=== PATIENT | male | born 1945 | race Caucasian/White ===

== ENCOUNTER → 2022-02-06 | Outpatient (CLI) | payer OTHER, SELFPAY ==
--- NOTE | 2022-02-06 08:30 | PET_ITS ---
STUDY: WHOLE BODY PET/CT STUDY REASON FOR EXAM: Male, 76 years old. Lung cancer, restaging RADIATION DOSAGE (If Supplied By Facility): CTDIvol = ( ) mGy, DLP = ( ) mGycm. Individualized dose optimization techniques were used for this CT.? FLUOROSCOPY TIME (if supplied): ( ) minutes/seconds TECHNIQUE: Patient was injected with 13.65 mCi of F-18 FDG for multiplanar whole body PET scan along with simultaneous CT. COMPARISON: None. FINDINGS: There is no suspicious abnormal PET activity. Physiologic activity noted within the brain, salivary glands, heart, liver or spleen kidneys, and in GI tract. The noncontrasted CT scan does not show evidence of a suspicious lymph node. There is evidence of calcified coronary vessels and a pericardial effusion with maximum thickness of 2.65 cm. Liver spleen pancreas and adrenal glands are unremarkable. There is a concern for a lesion in the upper pole the right kidney along with hypertensive cysts and a partially calcified left renal cyst. Further evaluation of the right kidney with ultrasound or contrasted study recommended. This area of the right kidney does not show any PET activity suggesting it may be a cyst. Scattered colonic diverticulosis is noted. There is an enlarged prostate, and a fat fluid level noted within the bladder PET/PET/CT Tumor Base -Thigh Init IMPRESSION: No suspicious abnormal PET activity noted. There are abnormal findings within the CT scan. These include prominent pericardial effusion, contour abnormality in the upper pole of the right kidney concerning for mass lesion. Ultrasound or contrasted study recommended for further evaluation, markedly enlarged prostate, and a fat fluid level within the bladder Electronically Signed: Joés Luis Whaley MD at 16:08 EDT ,
== END | disposition home or self-care (01) ==
DX: C34.31 Malignant neoplasm of lower lobe, right bronchus or lung (principal)
CPT/HCPCS: 78815; A9552

== ENCOUNTER 2022-03-14 12:24 | Emergency (ER) | payer OTHER, SELFPAY ==
[2022-03-14 12:25] VITALS: BP 149/70; PULSE 76; RESP 15; TEMP 36.7; O2SAT 97; BMI 35.7
[2022-03-14 12:32] VITALS: O2SAT 96
--- NOTE | 2022-03-14 12:38 | EKG12_ITS ---
Test Reason : Blood Pressure : / mmHG Vent. Rate : 051 BPM Atrial Rate : 051 BPM P-R Int : 178 ms QRS Dur : 082 ms QT Int : 414 ms P-R-T Axes : 266 061 014 degrees QTc Int : 381 ms Unusual P axis, possible ectopic atrial bradycardia Low voltage QRS Abnormal ECG Confirmed by CYNDI PETIT, JORDYN ([id number]), web content editor ELENITA ODOM ([id number]) on 03/18/2022 9:49:07 AM Referred By: Confirmed By:EVAN HANNA MD
[2022-03-14 12:57] LABS: Absolute Lymphocyte Count 2.42 X10^3/uL (0.83-4.51); Absolute Neutrophil Count 5.7 X10^3/uL (2.0-7.7); Basophil# 0.08 X10^3/uL; Basophil% 0.8 % (0-1); Eosinophil# 0.42 X10^3/uL; Eosinophils% 4.1 % (0-5); Lymphocyte # 2.42 X10^3/ul (0.83-4.51); Lymphocyte % 23.7 % (19-41); Mean Corp Hgb Conc 32.6 g/dL (32-36); Mean Corpuscular Volume 85.8 fL (80-94); Mean Platelet Vol. 10.7 fl (6.2-12.0); Monocyte# 1.55 X10^3/uL; Monocyte% 15.2 % (0-10); NRBC Flagged by Analyzer 0 % (0-5); Neutrophil # 5.71 X10^3/uL (2.7-7.7); Neutrophil % 55.7 % (47-70); POSITIVE DIFFERENTIAL YES; Platelet Count 173 K/mm3 (150-450); RBC Distribution Width CV 16.9 % (11.6-14.6); RBC Distribution Width SD 52.6 fl (35.1-43.9); Red Blood Count 5.36 M/mm3 (4.6-6.2); White Blood Count 10.2 K/mm3 (4.4-11.0)
[2022-03-14 12:58] LABS: Differential Indicated SCAN CRITERIA MET
--- NOTE | 2022-03-14 13:14 | RAD_ITS ---
STUDY: X-RAY CHEST REASON FOR EXAM: Male, 76 years old. Chest pain TECHNIQUE: Single AP portable view of the chest. COMPARISON: None. FINDINGS: EKG electrodes are seen. Infiltration in the right middle lobe. Increased markings in the right upper lobe as well as in the left lower lobe. Bilateral pneumonia should be ruled out. There is no demonstrated pleural abnormality. There is mild cardiac enlargement. Normal mediastinum and milady. Normal visualized pulmonary arteries. Normal visualized aortic arch and descending thoracic aorta. There are diffuse degenerative changes of the visualized thoracic spine. Normal visualized ribs, clavicles, and shoulders. There is no demonstrated abnormality of the visualized soft tissue structures of the upper abdomen. RAD/Chest 1 View (Portable) IMPRESSION: Patchy infiltrates in the right middle lobe with increased markings in the right upper lobe and left lung base. Mild cardiomegaly. With the patient''s history of a pericardial effusion. This may represent a pericardial effusion. Electronically Signed: Ramses Padilla MD at 13:40 EDT ,
[2022-03-14 13:16] LABS: Anion Gap 7 (5-15); BUN 22 mg/dL (7-18); BUN/Creat Ratio 17.6 RATIO (10-20); Calcium,Total 9.4 mg/dL (8.5-10.1); Chloride 102 mmol/L (98-107); Creatinine, Serum 1.25 mg/dL (0.70-1.30); EST Glomerular Filtration Rate 59 mL/min (>60); Est Glom Filt Rate - Afr Amer 72 mL/min (>60); Estimated Creatinine Clearance 47.88 ml/min; Glucose 179 mg/dL (74-106); Potassium 4.1 mmol/L (3.5-5.1); Sodium Level 139 mmol/L (136-145); Troponin-I HS (w/2H Reflex) 12 pg/mL (3.0-78.0)
[2022-03-14 13:26] LABS: Differential Comment SCANNED
[2022-03-14 13:32] VITALS: BP 135/81; PULSE 64; RESP 17; O2SAT 94
--- NOTE | 2022-03-14 13:32 | EDS_ITS ---
HPI History of Present Illness Chief Complaint: Shortness of Breath Narrative Narrative: 76-year-old male with history of lung cancer presenting with shortness of breath. Patient states this is not a new issue. Patient had radiation therapy to his chest previously. He states he is experiencing shortness of breath but as far as exertion he is able to mow his lawn and this takes about 45 minutes. He states he also works a few days a week. He is able to help out around the house and describes his shortness of breath is mild. Denies fever, chills, cough. Patient had a recent PET scan done ordered by Dr. Gutiérrez on 02/06/2022 which showed no suspicious lymph nodes. There was a per icardial effusion with a maximum thickness of 2.65 cm. There is no report of pleural effusion. There was a CT scan done at the same time which showed a probable lesion to the kidney which looks like a mass. It did recommend a follow-up contrasted study to evaluate the kidney. Patient was seen at the [facility] today and states he had an echocardiogram and there was a pericardial effusion noted. They were concerned for tamponade physiology. They requested that the patient go to the hospital and said to go to [facility] however the patient's stated that she believed [facility] had a good cardiac group. She was told all that he would need to do was inserted a needle into his thorax and drained the fluid from around the heart. The patient himself does not have any symptoms of lightheadedness or dizziness. He reports stress is no chest pain. His shortness of breath is unchanged and is mild. PFSH PFSH Medical History Diabetes High cholesterol HTN (hypertension) Lung cancer Prostate enlargement Smoker Allergy/AdvReac Type Severity Reaction Status Date / Time amoxicillin [From Augmentin] Allergy Hives Verified 03/14/22 12:27 clavulanic acid Allergy Hives Verified 03/14/22 12:27 [From Augmentin] lisinopril Allergy Other Verified 03/14/22 12:27 Surgical History H/O shoulder replacement Social History Smoking Status: Current every day smoker tobacco type: cigarettes ROS ROS ED Constitutional Constitutional ED: Denies fever(s) or sweats Eyes Eyes: Denies blurry vision or diplopia ENT ENT ED: Denies rhinorrhea or sore throat Cardiovascular Cardiovascular: Denies chest pain or palpitations Respiratory/Chest Respiratory/Chest: Reports dyspnea on exertion; Denies cough Gastrointestinal Gastrointestinal: Denies abdominal pain, nausea or vomiting Genitourinary Genitourinary ED: Denies dysuria or hematuria Musculoskeletal Musculoskeletal: Denies arthralgias or myalgias Integumentary Denies rash Neurologic Neurologic: Denies headache(s) or weakness Psychiatric Psychiatric: Denies anxiety or depression EXAM Physical Exam Const Vital Signs: 03/14/22 12:25 03/14/22 12:32 03/14/22 12:40 Temperature 98.1 F Temperature Source Temporal Pulse Rate 76 Respiratory Rate 15 Respiratory Effort Normal Non-Labored Respiratory Depth Normal Respiratory Pattern Normal Blood Pressure 149/70 H Blood Pressure Mean 96 Pulse Ox 97 Oxygen Delivery Method Room Air Room Air Room Air 03/14/22 13:32 Temperature Temperature Source Pulse Rate 64 Respiratory Rate 17 Respiratory Effort Respiratory Depth Respiratory Pattern Blood Pressure 135/81 H Blood Pressure Mean 99 Pulse Ox 94 Oxygen Delivery Method Room Air Positive well nourished General Appearance ED: NAD; Negative for pallor HEENT Reports moist mucous membranes atraumatic Eyes PERRL and EOMs intact bilaterally Neck no lymphadenopathy, supple and no JVD Resp normal respiratory effort and clear to auscultation bilaterally Cardio regular rate and regular rhythm GI non-tender Palpation: soft Back/Spine normal to inspection Extremity normal to inspection General Extremety ED: Negative for edema or tenderness General Extremity: Negative for edema Neuro oriented x3, CN's II-XII intact bilaterally and no sensory deficits noted Sensorium / Orientation: alert Motor Exam: strength 5/5 throughout Psych mental status grossly normal Thought Process: normal thought process Skin General Skin Exam: Negative for jaundice or pallor Lesions: no lesions Rashes: no rashes MDM MDM MDM Narrative Medical decision making narrative: Patient was sent to the hospital out of concern for tamponade physiology although he is stating that he does not have any symptoms of lightheadedness and is able to mow the grass for 45 minutes even though he has some dyspnea on exertion. He is not experiencing chest pain. He has not had syncope. His heart rate is not fast. His blood pressure is 135/81. He has no lower extremity edema or signs of heart failure. His EKG interpreted by myselfs hows bradycardia with a probable ectopic P focus. No ST elevation or depression. No electrical altered hands. There is a low voltage. CBC and BMP within normal limits. High-sensitivity troponin is 12. I am awaiting the documentation of the echocardiogram from the [facility]. patient CBC and BMP are unremarkable. High-sensitivity troponin is 12. Chest x-ray shows patchy infiltrates in the right middle lobe and right upper lobe consistent with his previous PET scan readings on my interpretation. Patient is not hypoxic, tachypneic, febrile. I do not believe he has pneumonia. Patient is not exhibiting by history or by exam any signs or symptoms of tamponade physiology however since he reported this I tried to obtain the fax from the [facility] however this never showed up. I then called an ER physician at the [facility] to discuss the case and he was able to look up the patient's history. The ER physician there told me that the patient had an abnormal echocardiogram about a month ago which was showing some tamponade physiology although there is no cardiology notes associated with this. He did state there was a large pericardial effusion in the right atrium and right ventricle showed some diastolic tamponade. He states that the 1 from yesterday that the patient received an was called about today showed similar physiology. After I did discuss with the patient that with the tamponade physiology he likely needs to go to [facility] and the ER physician was willing to arrange transport for him to the [facility] hospital however the patient stated that I have had this for a month and I do not want to go by ambulance. I did child care counselor the patient at length the risks of signing out AMA and that he risks severe disability, injury, because of the tamponade physiology. He acknowledged understanding of this. He signed appropriate paperwork. Prior to discharge he told the nurse that he did not plan on going to [facility] today. It was reported that he was encouraged to go to the ER today since he did not want to be transported. Impression: 1. Dyspnea 2. Pericardial effusion 3. Cardiac tamponade Lab Data Attestation: I reviewed the patient's lab results. Labs: Laboratory Results - last 24 hr 03/14/22 03/14/22 12:50 12:50 WBC 10.2 RBC 5.36 Hgb 15.0 Hct 46.0 MCV 85.8 MCH 28.0 MCHC 32.6 RDW Std Deviation 52.6 H RDW Coeff of Marlene 16.9 H Plt Count 173 MPV 10.7 Immature Gran % (Auto) 0.500 Neut % (Auto) 55.7 Lymph % (Auto) 23.7 Pickett % (Auto) 15.2 H Eos % (Auto) 4.1 Baso % (Auto) 0.8 Absolute Neuts (auto) 5.7 Absolute Lymphs (auto) 2.42 Nucleated RBC % 0 Differential Comment SCANNED Sodium 139 Potassium 4.1 Chloride 102 Carbon Dioxide 30.0 Anion Gap 7 BUN 22 H Creatinine 1.25 Estim Creat Clear Calc 47.88 Est GFR (MDRD) Af Amer 72 Est GFR (MDRD) Non-Af 59 L BUN/Creatinine Ratio 17.6 Glucose 179 H Calcium 9.4 Troponin I High Sens 12 Radiography Diagnostic Testing: Clinical Impression(s) from Imaging Studies Chest X-Ray 03/14/22 13:14 IMPRESSION: Patchy infiltrates in the right middle lobe with increased markings in the right upper lobe and left lung base. Mild cardiomegaly. With the patient''s history of a pericardial effusion. This may represent a pericardial effusion. Electronically Signed: Ramses Padilla MD at 13:40 EDT , Discharge Plan Triage Chief Complaint: Shortness of Breath ED Provider: Rashard Swanson Dx/Rx/DC Orders Instructions: Treatment for Pericardial Effusion, ED Dyspnea Referrals: ESTELA GUTIÉRREZ [Other] Disposition Disposition: Against Medical Advice
--- NOTE | 2022-03-14 14:51 | ED.RN ---
PER ED MD, PT AND REFUSE TRANSFER AND DIRECT TRANSPORT TO [facility] ([place], [place]). PT TELLS ED MD THEY WILL DRIVE DIRECTLY TO [facility] ([place], [place]) AFTER LEAVING [facility], VOICES UNDERSTANDING OF RISKS AND WILL SIGN OUT AMA. THIS RN ENTERED ROOM TO DISCUSS LEAVING AMA, LAUGHS AND STATES WE WON'T BE GOING THERE. THIS RN AGAIN REITERATED DANGER IN SIGNING PUT AMA, ESPECIALLY SINCE PT NOT GOING TO [facility] ([place], [place]). DISCUSSED CONCERN THAT PT HAS LIFE THREATENING CONDITION THAT NEEDS IMMEDIATE INTERVENTION TO PREVENT . BOTH PT AND DISMISS THESE CONCERNS, STATING THIS HAS BEEN GOING ON FOR A MONTH. PT SIGNED AMA PAPERS, IV REMOVED. THIS RN AGAIN REQUESTED PT AND GO STRAIGHT TO [facility] ([place], [place]) IF DECLINING TRANSFER BY [facility]. STATES CAN WE HAVE SOME TIME TO TALK ABOUT IT, I WON'T DRIVE UP THERE IN [place] HOUR. THIS RN AGAIN OFFERED TRANSPORT BY [facility] AND THEN LEFT ROOM. ACCORDING TO [employer] BUSINESS CONSULTANT, PT AND REQUESTED FOOD, THEN LEFT DEPARTMENT STATING THEY WERE GOING TO CAR TO DISCUSS OPTIONS.
[2022-03-14 14:55] LABS: Reflex Troponin-HS? (from REC) Y
--- NOTE | 2022-03-14 15:22 | ED.RN ---
PT AND CAME BACK IN TO TRIAGE, PER MD AGAIN ASKED PT TO GO STRAIGHT TO [facility] ED. BOTH PT AND VOICE UNDERSTANDING AND STATE THEY WILL DO SO.
== END 2022-03-14 14:50 | disposition left against medical advice (07) ==
PROVIDERS: Emergency Provider Student in an Organized Health Care Education/Training Program; Visit Provider Student in an Organized Health Care Education/Training Program
DX: I31.3 Pericardial effusion (noninflammatory) (principal); C34.90 Malignant neoplasm of unspecified part of unspecified bronchus or lung; E11.9 Type 2 diabetes mellitus without complications; I31.4 Cardiac tamponade; F17.210 Nicotine dependence, cigarettes, uncomplicated; Z53.29 Procedure and treatment not carried out because of patient's decision for other reasons
CPT/HCPCS: 71045; 80048; 84484; 85025; 93005; 99282; A4216

== ENCOUNTER → 2022-12-31 | Outpatient (CLI) | payer OTHER, SELFPAY ==
--- NOTE | 2022-12-31 14:03 | CT_ITS ---
STUDY: CT CHEST WITHOUT CONTRAST REASON FOR EXAM: Male, 77 years old. HX LUNG CA 2 YEARS AGO AND HAD RADIATION RADIATION DOSAGE (If Supplied By Facility): CTDIvol = ( 19.37 ) mGy, DLP = ( 655.06 ) mGycm TECHNIQUE: Transaxial imaging was performed without the administration of intravenous contrast material. Multiplanar coronal and sagittal images were reformatted. Individualized dose optimization techniques were used for this CT. COMPARISON: Comparison is made with prior chest radiograph dated March 14, 2022 and prior PET scan dated February 06, 2022. FINDINGS: CHEST Small benign appearing bilateral axillary lymph nodes. There is an irregular 3.2 cm x 1 cm soft tissue infiltrate in the right lung apex and right upper lobe anteriorly. With the patient''s history of prior radiation, this may represent post radiation scarring. This is unchanged from prior PET/CT scan dated February 06, 2022. There is no demonstrated pleural abnormality. There are calcifications of the coronary arteries. Anterior pericardial thickening suggestive of a small pericardial effusion. There are multiple small lymph nodes within the mediastinum, which are normal in size and morphology most compatible with reactive lymph hyperplasia. Normal hilar regions. Normal unenhanced pulmonary arteries. Normal aorta arch and descending thoracic aorta. There are multi-level degenerative changes of the thoracic spine. Right renal cysts. 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 Cystic changes seen in the upper pole of the right kidney. Correlation with ultrasound is recommended for further evaluation. Electronically Signed: Ramses Padilla MD at 15:57 EST ,
== END | disposition home or self-care (01) ==
LOC: CT 14:02
DX: Z85.118 Personal history of other malignant neoplasm of bronchus and lung (principal)
CPT/HCPCS: 71250

== ENCOUNTER → 2023-01-10 | Outpatient (CLI) | payer OTHER, SELFPAY ==
--- NOTE | 2023-01-10 13:53 | US_ITS ---
STUDY: RENAL ULTRASOUND - COMPLETE REASON FOR EXAM: Male, 77 years old. HEMATURIA, WEIGHT LOSS TECHNIQUE: Ultrasound evaluation of the kidneys was performed with real-time and static jones-scale imaging. COMPARISON: None. FINDINGS: RIGHT KIDNEY: Normal location of the right kidney, which is normal in size. The right kidney measures 14.2x7.5 cm. . There is a normal cortex of the right kidney. There is a cyst of the right kidney measuring in mm: 37. There are other smaller cysts..There are no right renal calculi. There is no right hydronephrosis. DISTAL RIGHT URETER: There is non-visualization of the distal right ureter. There is no demonstrated right ureterovesical junction calculus. There is no demonstrated right ureteral jet. LEFT KIDNEY: Normal location of the left kidney, which is normal in size. The left kidney measures 12.5x7.7 cm. . There is a normal cortex of the left kidney. There is a cyst of the left kidney measuring in mm: 29. This cyst has a septation. There are 19 mm left renal calculi. There is no left hydronephrosis. DISTAL LEFT URETER: There is non-visualization of the distal left ureter. There is no demonstrated left ureterovesical junction calculus. There is no demonstrated left ureteral jet. AORTA: There is no elongation or tortuosity of the abdominal aorta. Aorta measures: mm. There is no demonstrated aneurysm.. I.V.C.: The IVC is patent. BLADDER: The distended urinary bladder has a volume in cc of 75. Urinary bladder wall thickening. There is no demonstrated mass within the urinary bladder. There are no demonstrated bladder calculi. US/Kidney and Bladder IMPRESSION: Renal cysts bilaterally. Nonobstructive left renal stone. Electronically Signed: Noam Hill MD at 15:15 EDT ,
== END | disposition home or self-care (01) ==
LOC: US 13:52
DX: R31.0 Gross hematuria (principal)
CPT/HCPCS: 76770

== ENCOUNTER → 2023-06-16 | Outpatient (CLI) | payer OTHER, SELFPAY ==
--- NOTE | 2023-06-16 14:52 | CT_ITS ---
INDICATION: PERSONAL HX OF OTHER MALIGNANT NEOPLASM EXAMINATION: CT CHEST WITHOUT CONTRAST - CT Chest W/O Contrast Injection TECHNIQUE: Helically acquired images were obtained of the chest. A radiation dose optimization technique was used for this scan. IV Contrast dosage and agent: None. COMPARISON: CT chest without contrast from 12/31/2022. PET/CT from 02/06/2022 FINDINGS: Lungs/pleura: The central airways are patent. Mild emphysematous changes. 3.0 x 1.5 cm irregularly marginated soft tissue density in the right upper lobe with surrounding associated volume loss is stable when measured in similar dimension. Similar degree of trace right upper lobe parenchymal scarring. There are a few stable scattered pulmonary nodules. For example, largest nodules as follow: * 5 mm in the right middle lobe (4:76). * 5 mm in the left upper lobe (4:22). * 5 mm in the left lower lobe (4:73). No new or enlarging mass or nodule. No pleural effusion or pneumothorax. Mediastinum: Heart size is normal. No pericardial effusion. No masses or lymphadenopathy although assessment is limited without IV contrast. Vasculature: Assessment limited without IV contrast. Normal course and caliber of the thoracic aorta and pulmonary trunk with no aneurysmal dilatation. Moderate atherosclerotic calcifications in the thoracic aorta. Severe coronary artery calcifications. Visualized upper abdomen: There are a few stable hemorrhagic/proteinaceous cyst in the visualized kidneys. Small hiatal hernia. Bones/soft tissues: Stable remote right rib 2 fracture. No acute fracture or subluxation. No destructive osseous lesions. Soft tissues are unremarkable. CT/Chest without Contrast IMPRESSION: 1. Stable irregularly marginated opacity in the right upper lobe suggestive of scarring and fibrosis from posttreatment changes. Continued surveillance imaging is recommended. 2. Stable scattered pulmonary nodules measuring up to 5 mm. 3. No new or enlarging masses or nodules. Electronically Signed: Carlos Blount DO at 8:26 EDT ,
== END | disposition home or self-care (01) ==
LOC: CT 14:49
DX: Z85.118 Personal history of other malignant neoplasm of bronchus and lung (principal)
CPT/HCPCS: 71250

== ENCOUNTER → 2023-12-16 | Outpatient (CLI) | payer OTHER, SELFPAY ==
--- NOTE | 2023-12-16 12:58 | US_ITS ---
STUDY: RENAL ULTRASOUND - COMPLETE REASON FOR EXAM: Male, 78 years old. Kidney failure TECHNIQUE: Ultrasound evaluation of the kidneys was performed with real-time and static jones-scale imaging. COMPARISON: Comparison is made with prior examination dated January 10, 2023. FINDINGS: RIGHT KIDNEY: Normal location of the right kidney, which is normal in size. The right kidney measures 14.1 cm x 6.8 cm x 6.3 cm. There is a normal cortex of the right kidney. The renal cortex measures 1.2 cm. Once again, multiple cysts are seen. The largest cyst measures 3.2 cm x 3.9 cm x 3.3 cm. There are no right renal calculi. There is no right hydronephrosis. DISTAL RIGHT URETER: There is non-visualization of the distal right ureter. There is no demonstrated right ureterovesical junction calculus. There is a visualized right ureteral jet. LEFT KIDNEY: Normal location of the left kidney, which is normal in size. The left kidney measures 12.7 cm x 5.6 cm x 7.3 cm. There is a normal cortex of the left kidney. The renal cortex measures 1.5 cm. Multiple cysts are seen. The largest measures 2 cm x 2.8 cm x 2.3 cm. This cyst is septated. Findings suggesting multiple nonobstructive intrarenal calculi. The largest measures 1.4 cm x 1.6 cm. There is no left hydronephrosis. DISTAL LEFT URETER: There is non-visualization of the distal left ureter. There is no demonstrated left ureterovesical junction calculus. There is a visualized left ureteral jet. BLADDER: The distended urinary bladder has a volume of 95 ml. There is thickening of the bladder wall measuring 5.7 mm. There is no demonstrated mass within the urinary bladder. There are no demonstrated bladder calculi. US/Kidney and Bladder IMPRESSION: Stable bilateral renal cysts and left intrarenal calculi. Bladder wall thickening. Electronically Signed: Ramses Padilla MD at 14:13 EST ,
--- NOTE | 2023-12-16 13:03 | CT_ITS ---
STUDY: CT CHEST WITHOUT CONTRAST REASON FOR EXAM: Male, 78 years old. LUNG CANCER S/P RADIATION RADIATION DOSAGE (If Supplied By Facility): CTDIvol = ( 15.64 ) mGy, DLP = ( 544.20 ) mGycm TECHNIQUE: Transaxial imaging was performed without the administration of intravenous contrast material. Multiplanar coronal and sagittal images were reformatted. Individualized dose optimization techniques were used for this CT. COMPARISON: Comparison is made with prior study done June 16, 2023. FINDINGS: CHEST There is a 4.8 cm x 1.9 cm spiculated mass in the right upper lobe. This has increased in size as compared to prior study. Increased radiodensity anterior right lung apex. Stable scattered nodular densities in both lungs measuring less than 5 mm. There is no demonstrated pleural abnormality. There are calcifications of the coronary arteries. Normal mediastinum. Normal hilar regions. Normal unenhanced pulmonary arteries. There is atherosclerotic calcification of the aortic arch with tortuosity and elongation of the aortic arch and descending thoracic aorta. There are degenerative changes of the thoracic spine. Stable hyperdense cysts in both kidneys. Fullness of the left renal pelvis. CT/Chest without Contrast IMPRESSION: Progressive increase in size of the right upper lobe density measuring 4.8 cm x 1.9 cm. The remainder of the examination is unchanged. Electronically Signed: Ramses Padilla MD at 14:01 EST ,
--- OUTSIDE RECORDS SUMMARY | 2023-12-16 14:52 | XMS RPT_ITS | CCD ---
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 Helper Name Role Phone Yolis Musa PA-C Primary Care Provider PROVIDER, UNKNOWN Referring Unavailable Yolis Musa Primary Care Unavailable Heri Camarillo Attending Unavailable Heri Camarillo Attending Unavailable PROVIDER, UNKNOWN Referring Unavailable Yolis Musa Primary Care Unavailable KARI RAYMUNDO Attending Unavailable ABIGAIL MYERS Attending Unavailable HERI CAMARILLO Admitting Unavailable HERI CAMARILLO Attending Unavailable HERI CAMARILLO Attending Unavailable Allergies Allergy Classification Reported Allergen(s) Allergy Type Date of Onset Reaction(s) Facility (1 source) buPROPion Drug Allergy 06-09-2022 [facility] Work Phone: (1 source) Insulin Glargine Drug Allergy 06-07-2022 Rash [facility] Work Phone: (1 source) Lisinopril Drug Allergy 06-07-2022 Cough [facility] Work Phone: (1 source) Amoxicillin-Pot Clavulanate Propensity to adverse reactions to drug 06-07-2022 Headaches [facility] Medications Current Medications Medication Drug Class(es) Dates Sig (Normalized) Sig (Original) aspirin 81 mg chewable tablet (1 source) Platelet Aggregation Inhibitor, Nonsteroidal Anti-inflammator y Drug take 1 tablet by mouth once daily aspirin 81 MG chewable tablet Take 81 mg by mouth daily 0 Active finasteride 5 mg oral tablet (1 source) 5-alpha Reductase Inhibitor take 1 tablet by mouth in the morning finasteride (PROSCAR) 5 MG tablet Take 5 mg by mouth in the morning. 0 Active glipiZIDE 10 mg oral tablet (1 source) Sulfonylurea take 1 tablet by mouth in the morning glipiZIDE (GLUCOTROL) 10 MG tablet Take 10 mg by mouth in the morning and 10 mg in the evening. Take before meals. 0 Active hydroCHLOROthiazide 25 mg oral tablet (1 source) Thiazide Diuretic take 1 tablet by mouth in the morning hydroCHLOROthiazide (HYDRODIURIL) 25 MG tablet Take 25 mg by mouth in the morning. 0 Active losartan potassium 100 mg oral tablet (1 source) Angiotensin 2 Receptor Stef take 1 tablet by mouth in the morning losartan (COZAAR) 100 MG tablet Take 100 mg by mouth in the morning. 0 Active metFORMIN hydrochloride 500 mg oral tablet (1 source) Biguanide take 1 tablet by mouth in the morning metFORMIN (GLUCOPHAGE) 500 MG tablet Take 500 mg by mouth in the morning and 500 mg in the evening. Take with meals. 0 Active NONFORMULARY (1 source) NONFORMULARY Indications: insulin, substitute for Lantus. 20 Units nightly Indications: insulin, substitute for Lantus. 0 Active tamsulosin hydrochloride 0.4 mg oral capsule (1 source) alpha-Adrenergic Stef take 1 capsule by mouth in the morning tamsulosin (FLOMAX) 0.4 MG capsule Take 0.4 mg by mouth in the morning and 0.4 mg before bedtime. 0 Active Completed/Discontinued Medications Medication Drug Class(es) Dates Sig (Normalized) Sig (Original) insulin, regular, human 100 unt/ml injectable solution (1 source) Insulin End: 08-15-2022 insulin regular (HUMULIN R;NOVOLIN R) 100 UNIT/ML injection Indications: pt does not know name , same as Lantus Inject 20 Units into the skin every evening Indications: pt does not know name , same as Lantus 0 08/15/2022 Discontinued (LIST CLEANUP) Problems Active Problems Problem Classification Problem Date Documented Da te Episodic/Chronic Cancer of bronchus; lung (1 source) Malignant tumor of lung; Translations: [Malignant neoplasm of unspecified part of unspecified bronchus or lung] Onset: 06-09-2022 06-09-2022 Chronic Cancer of bronchus; lung (2 sources) Personal history of other malignant neoplasm of bronchus and lung; Translations: [Personal history of malignant neoplasm of bronchus and lung] Onset: 08-15-2022 Episodic Cardiac dysrhythmias (1 source) Atrial fibrillation; Translations: [Unspecified atrial fibrillation] Onset: 06-09-2022 06-09-2022 Chronic Diabetes mellitus without complication (3 sources) Diabetes mellitus; Translations: [Type 2 diabetes mellitus without complications] Onset: 06-09-2022 06-09-2022 Chronic Essential hypertension (3 sources) Hypertensive disorder; Translations: [Essential (primary) hypertension] Onset: 06-09-2022 06-09-2022 Chronic Genitourinary symptoms and ill-defined conditions (11 sources) Increased frequency of urination; Translations: [Frequency of micturition] Onset: 06-10-2022 06-10-2022 Episodic Hyperplasia of prostate (5 sources) Benign prostatic hypertrophy with outflow obstruction; Translations: [Benign prostatic hyperplasia with lower urinary tract symptoms] Onset: 06-10-2022 06-10-2022 Chronic Other aftercare (2 sources) alf (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; Translations: [long term acute care registered nurse (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] Onset: 08-15-2022 Episodic Other circulatory disease (2 sources) Personal history of other diseases of the circulatory system; Translations: [Personal history of other diseases of the circulatory system] Onset: 08-15-2022 Episodic Other screening for suspected conditions (not mental disorders or infectious disease) (1 source) Raised prostate specific antigen; Translations: [Elevated prostate specific antigen [PSA]] Onset: 06-10-2022 06-10-2022 Episodic [place]-; endo-; and myocarditis; cardiomyopathy (except that caused by tuberculosis or sexually transmitted disease) (1 source) Pericardial effusion; Translations: [Pericardial effusion] Onset: 06-09-2022 06-09-2022 Episodic Residual codes; unclassified (2 sources) Obstructive sleep apnea (adult) (pediatric); Translations: [Obstructive sleep apnea (adult) (pediatric)] Onset: 08-15-2022 Chronic Residual codes; unclassified (2 sources) Dependence on other enabling machines and devices; Translations: [Dependence on other enabling machines and devices] Onset: 08-15-2022 Chronic Substance-related disorders (2 sources) Nicotine dependence, unspecified, uncomplicated; Translations: [Nicotine dependence, unspecified, uncomplicated] Onset: 08-15-2022 Chronic Unclassified (1 source) Other pericardial effusion (noninflammatory); Translations: [Other pericardial effusion (noninflammatory)] Onset: 08-15-2022 Unclassified (2 sources) N40.1 // N13.8 Onset: 08-22-2022 Past or Other Problems Problem Classification Problem Date Documented Da te Episodic/Chronic Unclassified (1 source) Other pericardial effusion (noninflammatory); Translations: [Other pericardial effusion (noninflammatory)] Onset: 08-15-2022 Results Test Name Value Interpretation Reference Range Facil ity Vital Signs Date Time Vital Sign Value Performing Clinician Faci lity 08-15-2022 15:37-0400 Body height 175.3 cm Heri Camarillo MD Work Phone: [facility] 08-15-2022 15:37-0400 Body mass index (BMI) [Ratio] 35.09 kg/m2 Heri Camarillo MD Work Phone: [facility] 08-15-2022 15:37-0400 Body temperature 97 [degF] Heri Camarillo MD Work Phone: [facility] 08-15-2022 15:37-0400 Body weight 107.78 kg Heri Camarillo MD Work Phone: [facility] 08-15-2022 15:37-0400 Diastolic blood pressure 55 mm[Hg] Heri Camarillo MD Work Phone: [facility] 08-15-2022 15:37-0400 Heart rate 65 /min Heri Camarillo MD Work Phone: [facility] 08-15-2022 15:37-0400 Respiratory rate 16 /min Heri Camarillo MD Work Phone: [facility] 08-15-2022 15:37-0400 SaO2% (BldA) [Mass fraction] 97 % Heri Camarillo MD Work Phone: [facility] 08-15-2022 15:37-0400 Systolic blood pressure 129 mm[Hg] Heri Cueva Work Phone: [facility] Encounters Encounter Date Encounter Type Care Provider Facility Start: 10-18-2022 End: 10-18-2022 ambulatory HERI CAMARILLO [facility] Start: 10-10-2022 End: 10-10-2022 ambulatory ABIGAIL MYERS [facility] Start: 09-16-2022 End: 09-16-2022 ambulatory KARI RAYMUNDO [facility] Start: 08-27-2022 End: 08-27-2022 ambulatory KARI RAYMUNDO [facility] Start: 08-22-2022 End: 08-25-2022 Evaluation and management of inpatient [facility] Start: 08-15-2022 ambulatory UNKNOWN PROVIDER [facility] Start: 08-15-2022 [facility]: 08-15-2022 End: 08-15-2022 Patient encounter status Heri Camarillo MD Work Phone: [facility] Start: 08-15-2022 End: 08-15-2022 Subsequent hospital visit by physician Heri Camarillo MD Work Phone: [facility] Procedures Date Procedure Procedure Detail Performing Clinician Start: 08-15-2022 Blood count hemoglobin Rosamaria Kern PA-C Plan of Treatment Date Care Activity Detail Author Start: 09-30-2027 DTaP/Tdap/Td vaccine (2 - Td or Tdap) DTaP/Tdap/Td vaccine (2 - Td or Tdap) [facility] Start: 08-22-2022 End: 08-22-2022 Patient encounter procedure 08/22/2022 Appointment General Surgery Heri Camarillo MD [address] [place] [address] Franc Zambrano MD [address] [place] [address] [facility] Start: 05-27-2022 Influenza vaccination Flu vaccine (# 1) [facility] Start: 05-03-2022 COVID-19 Vaccine (5 - Booster for Pfizer series) COVID-19 Vaccine (5 - Booster for Pfizer series) [facility] Start: 03-09-2016 Pneumococcal 65+ yea rs Vaccine (2 - PPSV23 if available, else PCV20) Pneumococcal 65+ years Vaccine (2 - PPSV23 if available, else PCV20) [facility] Start: 1994 Screening for malign ant neoplasm of lung Low dose CT lung screening [facility] Start: 1962 Hepatitis C screening Hepatitis C sc reen [facility] Start: 1956 Depression Screen Depression Screen [facility] End: 08-15-2022 Culture, Urine [facility] Work Phone: Payers Date Payer Category Payer Unknown [id number] 2009 Medicare 1945 Unknown [id number] 1945 Unknown [id number] Unknown Social History Date Type Detail Facility Start: 08-15-2022 Tobacco smoking stat [facility] Smokes tobacco daily [facility] History of tobacco use Cigarette Smoker [facility] Work Phone: Start: 08-15-2022 Cigarettes smoked current (pack per day) - Reported 1.5 [facility] Work Phone: Start: 08-15-2022 Tobacco use and exposure Smoke less tobacco non-user [facility] Work Phone: Start: 08-15-2022 Alcohol intake Ex-drinker (finding) [facility] Work Phone: Start: 1945 Sex Assigned At Not on file [facility] Work Phone: Start: 08-05-2022 End: 08-15-2022 Exposure to SARS-CoV-2 (event) Not sure [facility] Work [facility]: Clinical Note 09-27-2022 Note Date & Type Note Facility 09-27-2022 Note I agree with plan of care. He can call us if symptoms persist and we can redo urine testing. Closing encounter. [facility] Hospital Discharge instructions 08-15-2022 Discharge InstructionsAttachments Note Date & Type Note Facility 08-15-2022 Hospital Discharg e instructions Aurora Negro RN - 08/15/2022 4:22 PM EDT TAKE the following medications the morning of your surgery Tamsulosin, Proscar. You may take your prescription pain medication. You may take Tylenol for pain. NO Motrin, ibuprofen or Advil for 24 hours prior to surgery or longer if instructed by your surgeon. NO Aleve or Naprosyn for 3 days prior to surgery or longer if instructed by your surgeon. IF YOU TAKE BLOOD THINNERS OR ASPIRIN: Take last dose of aspirin on 08/16. Hold until after surgery. Follow any instructions given to you by . Take 16 units of insulin at bedtime the night before surgery. Please check blood sugar the morning of surgery and treat, if low with 2 oz of clear juice. Shower with an antibacterial soap such as Dial or Safeguard or shower kit provided to you before coming to the hospital. No makeup, lotion, powder, deodorant or body spays. No hair products. Remove all jewelry and leave it at home. Wear loose comfortable clothing to go home in. You may brush your teeth morning of surgery. Do not wear contacts day of surgery. No marijuana (THC), smoking or alcohol for 24 hours prior to surgery. Please arrange for a responsible adult to drive you home after your surgery and that there is a responsible adult with you for 24 hours post discharge. If you have specific questions, please call your surgeon. You will receive a call the day before your surgery to verify your arrival time and date. You will be asked to arrive at least two hours prior to your scheduled surgery time. Please bring your [facility] Surgical folder and medication list with you day of surgery. We encourage you to write down any questions you may have for the surgeon, anesthesiologist, or other members of the surgical team and bring it with you the day of surgery. Please bring photo ID and insurance information. You may use the free windscreen fitter parking at the main entrance on [address] [place] [address], or the free parking in the [facility] parking deck The following attachments cannot be sent through Care Everywhere.Cystoscopy: Post-op ([place])documented in this encounter [facility] Work Phone: Evaluation note Note Date & Type Note Facility documented in this encounter [facility] Work Phone: Summary Purpose Family History No Family History Records FoundNo Family History Records Found Advance Directives No Advanced Directives Records FoundNo Advanced Directives Records Found Additional Source Comments Care Teams (unrecognized sec tion and content) (unrecognized sect ion and content) No Status Records FoundNo Status Records Found INFORMATION SOURCE (unrecogn ized section and content) DATE CREATED AUTHOR AUTHOR'S ORGANIZ ATION 12/06/2022 [facility] FOR RECORDS PERTAINING TO PATIENTS WHO ARE OR HAVE BEEN ENROLLED IN A CHEMICAL DEPENDENCY/SUBSTANCEABUSE PROGRAM, SOME INFORMATION MAY BE OMITTED. This clinical summary was aggregated from multiple sources. Caution should be exercised in using it in the provision of clinical care. This summary normalizes information from multiple sources, and as a consequence, information in this document may materially change the coding, format and clinical context of patient data. In addition, data may be omitted in some cases. CLINICAL DECISIONS SHOULD BE BASED ON THE PRIMARY CLINICAL RECORDS. [facility] provides no warranty or guarantee of the accuracy or completeness of information in this document.
== END | disposition home or self-care (01) ==
DX: C34.90 Malignant neoplasm of unspecified part of unspecified bronchus or lung (principal)
CPT/HCPCS: 71250; 76770

== ENCOUNTER → 2024-01-20 | Outpatient (CLI) | payer OTHER, SELFPAY ==
--- NOTE | 2024-01-20 11:00 | PET_ITS ---
EXAMINATION: FDG PET/CT ? INDICATIONS: 78-year-old male with an apparent history of lung carcinoma, presenting for restaging examination and evaluation of pulmonary nodularity. ? COMPARISON EXAMINATION: FDG-PET CT study dated 02/06/2022. ? INDEX LESION SIZE SUV INTERPRETATION NEW Prostate gland to the left of midline 32.3 mm 3.5 Warrants further investigation with Magnetic Resonance Imaging ? NEW Right upper lung field, right upper lobe, linear ? 1.7 max Quantitative criteria for viable neoplasm are not fulfilled ? TECHNIQUE: Following the intravenous administration of 14.3 mCi of F-18 deoxyglucose via the left upper extremity, multiplanar image acquisitions of the head, neck, chest, abdomen and pelvis to the level of the midthigh, obtained at one-hour post radiopharmaceutical administration contemporaneously interpreted with the current CT of the chest, abdomen and pelvis dated 01/20/2024 and prior FDG-PET CT study dated 02/06/2022 via coregistration reveal: ? SERUM GLUCOSE LEVEL:? 185 mg/dL? HEIGHT:?? 68 inches WEIGHT:?? 220 pounds ? FINDINGS: ? HEAD/NECK:? There is no evidence of abnormal increased glucose metabolism in the pharyngeal mucosal space, parapharyngeal space, oropharynx, bilateral-lateral and anterior neck, hypopharynx and distribution of the larynx. Asymmetric muscle tension artifact is noted in the pericervical soft tissue musculature. ? The visualized portion of the cerebral cortical-subcortical structures demonstrate symmetric and preserved glucose metabolism. ? CHEST:? Facilitated uptake is noted in the right upper lung field, right upper lobe, linear in presentation. The calculated maximum standard uptake value is 1.7. Quantitative criteria for viable neoplasm are not fulfilled. The left ventricular myocardium visualization is consistent with the fed state. ? CT of the chest demonstrates the following anatomic characteristics: Axillary soft tissue densities are ametabolic. Atherosclerotic calcification is defined in the thoracic aorta without evidence of dilatation, aneurysm formation. Coronary artery calcification is observed. Mediastinal and bilateral axillary soft tissue densities are ametabolic. A partially calcified pleural density noted in the right upper anterolateral lung zone is nonglucose avid. Emphysematous changes are defined in the bilateral upper lung zones. ? ABDOMEN/PELVIS: Facilitated uptake is noted in the lower pelvis associated with a prominent-size prostate gland. The calculated maximum standard uptake value is 3.5. The maximal axial diameter of the heterogeneous uptake is 32.3 mm. Prominent collecting system activity is noted in the left extending from the renal pelvis to the ureterovesical junction. Normal physiologic distribution of the radiopharmaceutical is identified in the hepatic (4.0) and splenic parenchyma, both renal units, urinary bladder, and visualized intestinal tract. Diffuse intestinal tract is identified in all four quadrants of the abdominal-pelvic mesentery. ? CT of the abdomen and pelvis is remarkable for the following: Atherosclerotic calcification is defined in the abdominal aorta without evidence of aneurysm formation. Abdominal and pelvic arterial calcification is observed. Calcification is noted in the prominent-size prostate gland. Peripelvic cyst formation is noted in the right kidney. Right and left inguinal soft tissue densities are ametabolic. ? SKELETAL:? There is no evidence of quantitatively significant enhanced glucose metabolism on meticulous inspection of the appendicular and axial skeletal structures. ? Degenerative changes defined in the thoracic and lumbar spine demonstrate no evidence of increased glucose metabolism. There are no sclerotic, mixed sclerotic-lytic, or primarily lytic changes defined in the axial skeletal structures with evidence of increased FDG uptake. ? PET/PET/CT Tumor Base -Thigh Init IMPRESSION: 1. The increased radiopharmaceutical concentration defined in the prostate gland to the left of midline may be further investigated with Magnetic Resonance Imaging secondary to the quantitative degree of uptake. 2. Enhanced tracer concentration noted in the right upper lung field, right upper lobe, linear in presentation, does not fulfill quantitative criteria for malignant transformation. 3. Overall, compared to the prior FDG-PET CT study report dated 02/06/2022, newly identified increased uptake noted in the region of the prostate gland warrants further clinical investigation. ? Electronic Signature Sebas Pleitez D.O. Accurate Quantification of SUVs for this report are calculated using the exclusive [employer]. ([place].S. Patent No. [id number] [phone] [phone] [place] patent [phone]). Standardization and correction of the FDG SUV metric via [employer] technology allow for vendor non-specific objective quantitative examination comparison and optimization of the sensitivity and specificity of the FDG PET-CT examination. . [email or web address] Electronically Signed: Sebas Pleitez DO at 10:03 EDT ,
== END | disposition home or self-care (01) ==
LOC: ONC 10:40
DX: Z00.00 Encounter for general adult medical examination without abnormal findings (principal)
CPT/HCPCS: 78815; A9552

== ENCOUNTER 2024-07-09 11:39 | Inpatient (IN) | payer OTHER, SELFPAY ==
[2024-07-09] VITALS (12 sets, daily range): BP systolic 122–148; BP diastolic 52–124; PULSE 80–95; RESP 16–23; TEMP 36.9–38.9; O2SAT 90–95; BMI 33.3
--- NOTE | 2024-07-09 12:34 | EKG12_ITS ---
Test Reason : DIZZINESS Blood Pressure : / mmHG Vent. Rate : 082 BPM Atrial Rate : 082 BPM P-R Int : 188 ms QRS Dur : 078 ms QT Int : 336 ms P-R-T Axes : 050 058 073 degrees QTc Int : 392 ms Poor data quality, interpretation may be adversely affected Normal sinus rhythm Low voltage QRS Borderline ECG Confirmed by Wolfgang Hooker ([id number]), commercial production editor ELEAZAR CHILDERS ([id number]) on 07/12/2024 11:16:41 AM Referred By: Confirmed By:Wolfgang Hooker
--- NOTE | 2024-07-09 12:37 | CT_ITS ---
STUDY: CT BRAIN WITHOUT CONTRAST REASON FOR EXAM: Male, 78 years old. Neuro deficit, acute, stroke suspected RADIATION DOSAGE (If Supplied By Facility): CTDIvol = ( 29.82 ) mGy, DLP = ( 1633.75 ) mGycm TECHNIQUE: Transaxial CT imaging of the brain was performed without administration of intravenous contrast material. Individualized dose optimization techniques were used for this CT. COMPARISON: None. FINDINGS: Normal soft tissue structures. Normal calvarium. There is mild cerebral atrophy with widening of the extra-axial spaces and ventricular dilatation. There are areas of decreased attenuation within the white matter tracts of the supratentorial brain, consistent with microvascular disease changes. Normal basal ganglia and thalami. Normal brainstem. Normal cerebellum. There is no intracranial hemorrhage. There are no findings of an acute ischemic infarction. Normal visualized paranasal sinuses. IMPRESSION: 1. Chronic ischemic and involutional changes of the brain. STUDY: CTA HEAD AND NECK WITH CONTRAST REASON FOR EXAM: Male, 78 years old. Neuro deficit, acute, stroke suspected Additional clinical history: 78-year-old male with an apparent history of lung carcinoma, presenting for restaging examination and evaluation of pulmonary nodularity. RADIATION DOSAGE (If Supplied By Facility): CTDIvol = ( 29.82 ) mGy, DLP = ( 1633.75 ) mGycm TECHNIQUE: CT angiography was performed with a multi-detector CT scanner. Data acquisition was obtained from the skull base through the vertex following intravenous administration of IV 75mL Isovue-370. MIP images were reconstructed from the axial data set. Post-processing of the angiographic images was performed, with multiplanar reformation and 3D reconstruction. Individualized dose optimization techniques were used for this CT. COMPARISON: No relevant priors. FINDINGS: Normal bilateral petrous carotid arteries. There is calcified plaque formation of the right cavernous carotid artery, without a cross-sectional luminal stenosis. There is calcified plaque formation of the left cavernous carotid artery, with a mild stenosis (less than 50%). Normal right A1 segments of the anterior cerebral artery. Normal left A1 segments of the anterior cerebral artery. Normal intact anterior communicating artery (ACOM). Normal bilateral A2 segments of the anterior cerebral arteries. Normal right M1 and M2 segments of the middle cerebral arteries, with a normal M1 bifurcation. Normal left M1 and M2 segments of the middle cerebral arteries, with a normal M1 bifurcation. Normal right posterior communicating artery (PCOM). There is non-visualization of the left posterior communicating artery (PCOM). Normal bilateral vertebral arteries. There is tortuosity with elongation of the basilar artery. The visualized bilateral superior cerebellar (SCA) arteries are normal. Normal bilateral P1, P2 and visualized P3 segments of the posterior cerebral arteries. There is no demonstrated aneurysm of the [place]. no demonstrated thrombus or occlusion or hemodynamically significant stenosis of the major intracranial arteries. Fully patent and normal enhancement of the major intracranial venous sinuses, with no evidence of venous sinus thrombosis or occlusion. NECK CTA: 6 mm nodule in the lateral subpleural region of the right upper lobe seen on image 1/565 series 4. Refer to recent CT of the chest and PET CT exams. This nodule should be followed up according to Fleischner Society''s criteria an annual CT lung cancer screening studies. Cystic emphysematous changes and interstitial thickening is seen in the bilateral upper lobes. AORTIC ARCH: There is atherosclerotic calcific plaque formation of the aortic arch and great vessels arising from the aortic arch, without a hemodynamically significant stenosis. There is a normal origin of the brachiocephalic, left common carotid, and left subclavian arteries. Mild atherosclerotic plaque and tortuosity origins of the brachiocephalic, left common carotid, and left subclavian arteries. RIGHT CAROTID ARTERIES: Normal right common carotid artery (CCA). There is mild atherosclerotic plaque formation with minimal narrowing of the right carotid bulb. There is mild atherosclerotic plaque formation of the origin of the right internal carotid artery with less than 50% cross sectional diameter stenosis. Normal visualized cervical portion of the right internal carotid artery. Normal origin of the right external carotid artery (ECA). LEFT CAROTID ARTERIES: Normal left common carotid artery (CCA). Normal left common carotid bulb. Normal origin of the left internal carotid (ICA) artery without a hemodynamically significant stenosis. Normal visualized cervical portion of the left internal carotid artery. Normal origin of the left external carotid artery (ECA). VERTEBRAL ARTERIES: Normal bilateral vertebral arteries. No demonstrated vertebral artery thrombus or occlusion or dissection. IMPRESSION: No demonstrated large vessel occlusion 1. Head CTA: There is no demonstrated aneurysm of the [place]. no demonstrated thrombus or occlusion or hemodynamically significant stenosis of the major intracranial arteries. Fully patent and normal enhancement of the major intracranial venous sinuses, with no evidence of venous sinus thrombosis or occlusion. 2. Neck CTA: Mild atherosclerotic plaque and stenosis of the right carotid bulb and origin of the ICA. 3. MRI of the brain can be obtained for small infarcts and perforating vessel disease not detected by CT. 4. 6 mm nodule in the lateral subpleural region of the right upper lobe seen on image 1/565 series 4. Refer to recent CT of the chest and PET CT exams. This nodule should be followed up according to Fleischner Society''s criteria an annual CT lung cancer screening studies. Electronically Signed: Woo Enriquez MD at 15:11 EDT Reading Location ID and State: [facility] / [place] , Service support , STUDY: CT BRAIN WITHOUT CONTRAST REASON FOR EXAM: Male, 78 years old. Neuro deficit, acute, stroke suspected RADIATION DOSAGE (If Supplied By Facility): CTDIvol = ( 29.82 ) mGy, DLP = ( 1633.75 ) mGycm TECHNIQUE: Transaxial CT imaging of the brain was performed without administration of intravenous contrast material. Individualized dose optimization techniques were used for this CT. COMPARISON: None. FINDINGS: Normal soft tissue structures. Normal calvarium. There is mild cerebral atrophy with widening of the extra-axial spaces and ventricular dilatation. There are areas of decreased attenuation within the white matter tracts of the supratentorial brain, consistent with microvascular disease changes. Normal basal ganglia and thalami. Normal brainstem. Normal cerebellum. There is no intracranial hemorrhage. There are no findings of an acute ischemic infarction. Normal visualized paranasal sinuses. CT/CTA Head AND Neck W/ Contrast IMPRESSION: 1. Chronic ischemic and involutional changes of the brain. STUDY: CTA HEAD AND NECK WITH CONTRAST REASON FOR EXAM: Male, 78 years old. Neuro deficit, acute, stroke suspected Additional clinical history: 78-year-old male with an apparent history of lung carcinoma, presenting for restaging examination and evaluation of pulmonary nodularity. RADIATION DOSAGE (If Supplied By Facility): CTDIvol = ( 29.82 ) mGy, DLP = ( 1633.75 ) mGycm TECHNIQUE: CT angiography was performed with a multi-detector CT scanner. Data acquisition was obtained from the skull base through the vertex following intravenous administration of IV 75mL Isovue-370. MIP images were reconstructed from the axial data set. Post-processing of the angiographic images was performed, with multiplanar reformation and 3D reconstruction. Individualized dose optimization techniques were used for this CT. COMPARISON: No relevant priors. FINDINGS: Normal bilateral petrous carotid arteries. There is calcified plaque formation of the right cavernous carotid artery, without a cross-sectional luminal stenosis. There is calcified plaque formation of the left cavernous carotid artery, with a mild stenosis (less than 50%). Normal right A1 segments of the anterior cerebral artery. Normal left A1 segments of the anterior cerebral artery. Normal intact anterior communicating artery (ACOM). Normal bilateral A2 segments of the anterior cerebral arteries. Normal right M1 and M2 segments of the middle cerebral arteries, with a normal M1 bifurcation. Normal left M1 and M2 segments of the middle cerebral arteries, with a normal M1 bifurcation. Normal right posterior communicating artery (PCOM). There is non-visualization of the left posterior communicating artery (PCOM). Normal bilateral vertebral arteries. There is tortuosity with elongation of the basilar artery. The visualized bilateral superior cerebellar (SCA) arteries are normal. Normal bilateral P1, P2 and visualized P3 segments of the posterior cerebral arteries. There is no demonstrated aneurysm of the [place]. no demonstrated thrombus or occlusion or hemodynamically significant stenosis of the major intracranial arteries. Fully patent and normal enhancement of the major intracranial venous sinuses, with no evidence of venous sinus thrombosis or occlusion. NECK CTA: 6 mm nodule in the lateral subpleural region of the right upper lobe seen on image 1/565 series 4. Refer to recent CT of the chest and PET CT exams. This nodule should be followed up according to Fleischner Society''s criteria an annual CT lung cancer screening studies. Cystic emphysematous changes and interstitial thickening is seen in the bilateral upper lobes. AORTIC ARCH: There is atherosclerotic calcific plaque formation of the aortic arch and great vessels arising from the aortic arch, without a hemodynamically significant stenosis. There is a normal origin of the brachiocephalic, left common carotid, and left subclavian arteries. Mild atherosclerotic plaque and tortuosity origins of the brachiocephalic, left common carotid, and left subclavian arteries. RIGHT CAROTID ARTERIES: Normal right common carotid artery (CCA). There is mild atherosclerotic plaque formation with minimal narrowing of the right carotid bulb. There is mild atherosclerotic plaque formation of the origin of the right internal carotid artery with less than 50% cross sectional diameter stenosis. Normal visualized cervical portion of the right internal carotid artery. Normal origin of the right external carotid artery (ECA). LEFT CAROTID ARTERIES: Normal left common carotid artery (CCA). Normal left common carotid bulb. Normal origin of the left internal carotid (ICA) artery without a hemodynamically significant stenosis. Normal visualized cervical portion of the left internal carotid artery. Normal origin of the left external carotid artery (ECA). VERTEBRAL ARTERIES: Normal bilateral vertebral arteries. No demonstrated vertebral artery thrombus or occlusion or dissection. IMPRESSION: No demonstrated large vessel occlusion 1. Head CTA: There is no demonstrated aneurysm of the [place]. no demonstrated thrombus or occlusion or hemodynamically significant stenosis of the major intracranial arteries. Fully patent and normal enhancement of the major intracranial venous sinuses, with no evidence of venous sinus thrombosis or occlusion. 2. Neck CTA: Mild atherosclerotic plaque and stenosis of the right carotid bulb and origin of the ICA. 3. MRI of the brain can be obtained for small infarcts and perforating vessel disease not detected by CT. 4. 6 mm nodule in the lateral subpleural region of the right upper lobe seen on image 1/565 series 4. Refer to recent CT of the chest and PET CT exams. This nodule should be followed up according to Fleischner Society''s criteria an annual CT lung cancer screening studies. Electronically Signed: Woo Enriquez MD at 15:19 EDT ,
[2024-07-09 13:10] LABS: Absolute Neutrophil Count 23.5 X10^3/uL (2.0-7.7); Basophil# 0.12 X10^3/uL; Basophil% 0.4 % (0-1); Eosinophil# 0.08 X10^3/uL; Eosinophils% 0.3 % (0-5); Hematocrit 41.4 % (40-54); Hemoglobin 12.8 g/dL (13.0-16.5); Lymphocyte % 5.9 % (19-41); Mean Corp Hgb Conc 30.9 g/dL (32-36); Mean Corpuscular Hgb 25.7 pg (27.0-32.0); Mean Platelet Vol. 11.5 fl (6.2-12.0); Monocyte# 4.46 X10^3/uL; Monocyte% 14.6 % (0-10); NRBC Flagged by Analyzer 0 % (0-5); Neutrophil # 23.51 X10^3/uL (2.7-7.7); Neutrophil % 77.2 % (47-70); POSITIVE COUNT YES; POSITIVE DIFFERENTIAL YES; Platelet Count 255 K/mm3 (150-450); RBC Distribution Width CV 17.6 % (11.6-14.6); RBC Distribution Width SD 52.7 fl (35.1-43.9); Red Blood Count 4.99 M/mm3 (4.6-6.2)
[2024-07-09 13:12] LABS: Differential Indicated SCAN CRITERIA MET; White Blood Count 30.5 K/mm3 (4.4-11.0)
[2024-07-09 13:21] LABS: International Normalized Ratio 1.2; Prothrombin Time (Protime)PT. 15.6 SECONDS (11.7-14.9)
[2024-07-09 13:22] LABS: Partial Thromboplast Time 27.5 Seconds (24.1-36.2)
[2024-07-09 13:31] LABS: AST(SGOT) 23 U/L (15-37); Alanine Aminotransfer ALT/SGPT 15 U/L (16-61); Albumin, Serum 2.8 g/dL (3.2-5.0); Alkaline Phosphatase 116 U/L (45-117); Anion Gap 11 (5-15); BUN 43 mg/dL (7-18); BUN/Creat Ratio 15.8 RATIO (10-20); Bilirubin, Direct 0.14 mg/dL (0.00-0.30); Calcium,Total 9.3 mg/dL (8.5-10.1); Chloride 108 mmol/L (98-107); Creatinine, Serum 2.73 mg/dL (0.70-1.30); EST Glomerular Filtration Rate 24 mL/min (>60); Est Glom Filt Rate - Afr Amer 29 mL/min (>60); Globulin 4.7 g/dL (2.2-4.2); Glucose 224 mg/dL (74-106); Potassium 4.5 mmol/L (3.5-5.1); Protein, Total 7.5 g/dL (6.4-8.2); Sodium Level 138 mmol/L (136-145); Troponin-I HS 18 pg/mL (3.0-78.0)
[2024-07-09 13:39] LABS: Differential Comment SCANNED; Polychromasia 2+
[2024-07-09] MEDS: Acetaminophen 500 MG Tablet 1000 MG PO (13:39)
[2024-07-09] MEDS: 0.9% Normal Saline (1000mL) 1,000 ML 999 ML IV ×2 (13:39→15:50)
[2024-07-09 13:40] LABS: Anisocytosis 2+
[2024-07-09 13:41] LABS: Platelet Morphology LARGE
--- NOTE | 2024-07-09 14:12 | RAD_ITS ---
STUDY: X-RAY CHEST REASON FOR EXAM: Male, 78 years old. Neurodeficit. Suspected stroke. TECHNIQUE: Single frontal view of the chest. COMPARISON: Chest CT dated December 16, 2023 FINDINGS: Elevation of both hemidiaphragms with diffuse mild interstitial prominence. Scarring in the right upper lobe. There is no demonstrated pleural abnormality. Mild cardiomegaly. Normal mediastinum and milady. Normal visualized pulmonary arteries. Aortic tortuosity. No abnormality of the visualized soft tissue structures of the upper abdomen. RAD/Chest 1 View IMPRESSION: No active or acute cardiopulmonary disease. Electronically Signed: Patrick Herrera MD at 14:24 EDT ,
[2024-07-09 14:40] LABS: Lactic Acid 2.1 mmol/L (0.4-1.9)
[2024-07-09] MEDS: Ceftriaxone 1 GM/50 ML BAG IV (15:52)
--- NOTE | 2024-07-09 16:19 | EDS_ITS ---
HPI History of Present Illness Chief Complaint: Fatigue Narrative Narrative: Patient is a 78-year-old male with past medical hypertension, hypercholesteremia, prostate enlargement, lung cancer who presented to the [facility] part with a chief complaint of difficulty walking generalized weakness. According to the patient his last well-known was when he went to bed around 9 PM and woke up around 530 this morning. He states when he woke up he had weakness and difficulty with walking. He states that he had to hold onto things and to support his ambulation. He states that he did have a fall but did not pass out did not lose consciousness. Given his symptoms a brought him here for the evaluation management [facility] Medical History Diabetes High cholesterol HTN (hypertension) Smoker Prostate enlargement Lung cancer Allergy/AdvReac Type Severity Reaction Status Date / Time amoxicillin (From Augmentin) Allergy Hives Verified 03/14/22 12:27 clavulanic acid (From Allergy Hives Verified 03/14/22 12:27 Augmentin) lisinopril Allergy Other Verified 03/14/22 12:27 Surgical History H/O shoulder replacement Social History Smoking Status: Current every day smoker tobacco type: cigarettes ROS ROS ED ROS Narrative Constitutional: Denies any fevers, chills, headaches, lightness, dizziness Eyes: Denies double vision blurry vision changes vision Cardiovascular: Denies chest pain or palpitations Respiratory: Denies coughing wheezing shortness of breath Abdomen: Denies abdominal pain nausea vomit diarrhea : Denies any urinary symptoms Neurological: Denies numbness, weakness, tingling Musculoskeletal: Denies back pain Skin: Denies rashes or lesions EXAM Physical Exam Narrative Exam Narrative: General: Patient was lying in bed rest comfortably did not appear to be acute distress Head: Atraumatic, normocephalic Eyes: PERRL bilateral, EOMI bilateral, no conjunctival injection noted Neck: Soft, supple, trach midline Cardiovascular: Regular rate and rhythm no murmurs gallops rubs noted Respiratory: Clear to auscultation bilaterally no rales rhonchi wheeze noted Abdomen: Soft, nondistended, nontender to palpation, bowel sounds present x 4 Extremities: +4/5 strength noted in the bilateral upper and lower extremities, radial pulses +2/4 in the bilateral upper extremities, no pedal edema on exam Neurological: Patient is following commands knew that he was at [facility] year is 2023. Sensation grossly intact. Patient completed [id number] and finger-nose test bilaterally without difficulty. NIH of 0 GCS 15 Skin: Warm, dry, intact Const Vital Signs: 07/09/24 11:40 07/09/24 11:41 07/09/24 12:34 Temperature 102.1 F H Temperature Source Oral Pulse Rate 85 Respiratory Rate 19 H Respiratory Effort Normal Respiratory Pattern Normal Blood Pressure 140/58 H Blood Pressure Mean 85 Pulse Ox 90 Oxygen Delivery Method Room Air Room Air Oxygen Flow Rate (L/min) 96 07/09/24 12:34 07/09/24 13:04 07/09/24 13:30 Temperature Temperature Source Pulse Rate 83 83 80 Respiratory Rate 22 H 23 H 22 H Respiratory Effort Respiratory Pattern Blood Pressure 143/66 H 138/61 H 143/72 H Blood Pressure Mean 91 86 95 Pulse Ox 93 93 92 Oxygen Delivery Method Room Air Room Air Room Air Oxygen Flow Rate (L/min) 07/09/24 13:40 07/09/24 15:55 07/09/24 16:11 Temperature 99 F Temperature Source Pulse Rate 82 83 83 Respiratory Rate 17 18 20 H Respiratory Effort Respiratory Pattern Blood Pressure 143/72 H 122/52 H 133/63 H Blood Pressure Mean 95 75 86 Pulse Ox 94 94 91 Oxygen Delivery Method Room Air Room Air Oxygen Flow Rate (L/min) MDM MDM MDM Narrative Medical decision making narrative: Patient is a 78-year-old male who presented to the emerged part with a chief complaint of weakness and difficulty with walking. Patient will have a workup performed on the differential diagnose includes but not limited to ischemic stroke, hemorrhagic stroke, UTI, posterior circulation stroke, ACS. Once workup is obtained reviewed he will be reevaluated. Patient be given IV fluids for hydration There is delay in getting the patient down to the CT scanner as there is a critically ill patient in the emergency department. Patient is not a tenecteplase candidate as his last known well was 9 PM yesterday evening on 07/08/2024. Patient CBC was significant for leukocytosis of 30,000, hemoglobin was 12.8, platelet count normal at 255. Patient's sodium normal 138, potassium of 4.5, creatinine is elevated to 2.73 indicating acute kidney injury when his baseline from 2 years ago was normal at 1.25, lactic acid elevated 2.1. Patient troponin normal at 18, EKG reviewed and showed sinus rhythm with a rate of 82 beats per minutes . Patient admits x-ray of his chest reviewed showed no acute or active cardiopulmonary disease. Patient CTA head and neck as well as CT brain without contrast reviewed and showed chronic ischemic and involutional changes of the brain. No concerning finding for large vessel occlusion. He does have 6 mm nodule noted in the lateral subpleural region of the right upper lobe seen on image 5 series [address] and PET scan. At 1536 there is no identifiable source of infection at this point time however the patient was given a gram Rocephin given his leukocytosis and elevated lactic acid as well as his fever. Urinalysis all pending. At this point time do believe the patient will warrant admission to the hospital. Did discuss case with hospitalist Dr. Mcclellan who accept patient for admission. Patient was notified with all question concerns answered bedside. Lab Data Labs: Laboratory Results - last 24 hr 07/09/24 07/09/24 13:00 13:30 WBC 30.5 H* RBC 4.99 Hgb 12.8 L Hct 41.4 MCV 83.0 MCH 25.7 L MCHC 30.9 L RDW Std Deviation 52.7 H RDW Coeff of Marlene 17.6 H Plt Count 255 MPV 11.5 Immature Gran % (Auto) 1.600 H Neut % (Auto) 77.2 H Lymph % (Auto) 5.9 L [place] % (Auto) 14.6 H Eos % (Auto) 0.3 Baso % (Auto) 0.4 Absolute Neuts (auto) 23.5 H Absolute Lymphs (auto) 1.80 Nucleated RBC % 0 Differential Comment SCANNED Diff Path Review May foll Plt Morphology Comment LARGE Polychromasia 2+ Anisocytosis 2+ PT 15.6 H INR 1.2 APTT 27.5 Sodium 138 Potassium 4.5 Chloride 108 H Carbon Dioxide 19.0 L Anion Gap 11 BUN 43 H Creatinine 2.73 H Est GFR (MDRD) Af Amer 29 L Est GFR (MDRD) Non-Af 24 L BUN/Creatinine Ratio 15.8 Glucose 224 H Lactic Acid 2.1 H* Calcium 9.3 Total Bilirubin 0.50 Direct Bilirubin 0.14 AST 23 ALT 15 L Alkaline Phosphatase 116 Troponin I High Sens 18 Total Protein 7.5 Albumin 2.8 L Globulin 4.7 H Radiography Diagnostic Testing: Clinical Impression(s) from Imaging Studies Head/Neck CTA 07/09/24 12:37 IMPRESSION: 1. Chronic ischemic and involutional changes of the brain. STUDY: CTA HEAD AND NECK WITH CONTRAST REASON FOR EXAM: Male, 78 years old. Neuro deficit, acute, stroke suspected Additional clinical history: 78-year-old male with an apparent history of lung carcinoma, presenting for restaging examination and evaluation of pulmonary nodularity. RADIATION DOSAGE (If Supplied By Facility): CTDIvol = ( 29.82 ) mGy, DLP = ( 1633.75 ) mGycm TECHNIQUE: CT angiography was performed with a multi-detector CT scanner. Data acquisition was obtained from the skull base through the vertex following intravenous administration of IV 75mL [id number]-[id number]. MIP images were reconstructed from the axial data set. Post-processing of the angiographic images was performed, with multiplanar reformation and 3D reconstruction. Individualized dose optimization techniques were used for this CT. COMPARISON: No relevant priors. FINDINGS: Normal bilateral petrous carotid arteries. There is calcified plaque formation of the right cavernous carotid artery, without a cross-sectional luminal stenosis. There is calcified plaque formation of the left cavernous carotid artery, with a mild stenosis (less than 50%). Normal right A1 segments of the anterior cerebral artery. Normal left A1 segments of the anterior cerebral artery. Normal intact anterior communicating artery (ACOM). Normal bilateral A2 segments of the anterior cerebral arteries. Normal right M1 and M2 segments of the middle cerebral arteries, with a normal M1 bifurcation. Normal left M1 and M2 segments of the middle cerebral arteries, with a normal M1 bifurcation. Normal right posterior communicating artery (PCOM). There is non-visualization of the left posterior communicating artery (PCOM). Normal bilateral vertebral arteries. There is tortuosity with elongation of the basilar artery. The visualized bilateral superior cerebellar (SCA) arteries are normal. Normal bilateral P1, P2 and visualized P3 segments of the posterior cerebral arteries. There is no demonstrated aneurysm of the [place]. no demonstrated thrombus or occlusion or hemodynamically significant stenosis of the major intracranial arteries. Fully patent and normal enhancement of the major intracranial venous sinuses, with no evidence of venous sinus thrombosis or occlusion. NECK CTA: 6 mm nodule in the lateral subpleural region of the right upper lobe seen on image 1/565 series 4. Refer to recent CT of the chest and PET CT exams. This nodule should be followed up according to Fleischner Society''s criteria an annual CT lung cancer screening studies. Cystic emphysematous changes and interstitial thickening is seen in the bilateral upper lobes. AORTIC ARCH: There is atherosclerotic calcific plaque formation of the aortic arch and great vessels arising from the aortic arch, without a hemodynamically significant stenosis. There is a normal origin of the brachiocephalic, left common carotid, and left subclavian arteries. Mild atherosclerotic plaque and tortuosity origins of the brachiocephalic, left common carotid, and left subclavian arteries. RIGHT CAROTID ARTERIES: Normal right common carotid artery (CCA). There is mild atherosclerotic plaque formation with minimal narrowing of the right carotid bulb. There is mild atherosclerotic plaque formation of the origin of the right internal carotid artery with less than 50% cross sectional diameter stenosis. Normal visualized cervical portion of the right internal carotid artery. Normal origin of the right external carotid artery (ECA). LEFT CAROTID ARTERIES: Normal left common carotid artery (CCA). Normal left common carotid bulb. Normal origin of the left internal carotid (ICA) artery without a hemodynamically significant stenosis. Normal visualized cervical portion of the left internal carotid artery. Normal origin of the left external carotid artery (ECA). VERTEBRAL ARTERIES: Normal bilateral vertebral arteries. No demonstrated vertebral artery thrombus or occlusion or dissection. IMPRESSION: No demonstrated large vessel occlusion 1. Head CTA: There is no demonstrated aneurysm of the [place]. no demonstrated thrombus or occlusion or hemodynamically significant stenosis of the major intracranial arteries. Fully patent and normal enhancement of the major intracranial venous sinuses, with no evidence of venous sinus thrombosis or occlusion. 2. Neck CTA: Mild atherosclerotic plaque and stenosis of the right carotid bulb and origin of the ICA. 3. MRI of the brain can be obtained for small infarcts and perforating vessel disease not detected by CT. 4. 6 mm nodule in the lateral subpleural region of the right upper lobe seen on image 1/565 series 4. Refer to recent CT of the chest and PET CT exams. This nodule should be followed up according to Fleischner Society''s criteria an annual CT lung cancer screening studies. Electronically Signed: Woo Enriquez MD at 15:19 EDT , Chest X-Ray 07/09/24 14:12 IMPRESSION: No active or acute cardiopulmonary disease. Electronically Signed: Patrick Herrera MD at 14:24 EDT , Discharge Plan Triage Chief Complaint: Fatigue ED Provider: Omar Elliott Dx/Rx/DC Orders Clinical Impression: Generalized weakness, Acute lactic acidosis, Acute kidney injury, Leukocytosis [facility] [Primary Care Provider] - Print Language: Maori
--- NOTE | 2024-07-09 17:21 | US_ITS ---
STUDY: RENAL ULTRASOUND - COMPLETE REASON FOR EXAM: Male, 78 years old. Acute kidney injury, UTI TECHNIQUE: Ultrasound evaluation of the kidneys was performed with real-time and static jones-scale imaging. COMPARISON: None. FINDINGS: RIGHT KIDNEY: Normal location of the right kidney, which is enlarged The right kidney measures 14.4 x 8.2 x 7.7 cm. There is a normal cortex of the right kidney. The renal cortex measures 2.1 cm. There are multiple cysts the largest measuring 4.1 x 3.7 x 3.9 cm. There are no right renal calculi. There is no right hydronephrosis. DISTAL RIGHT URETER: There is non-visualization of the distal right ureter. There is no demonstrated right ureterovesical junction calculus. There is a visualized right ureteral jet. LEFT KIDNEY: Normal location of the left kidney, which is enlarged. The left kidney measures 0.8 x 6.7 x 7.8 cm. There is a normal cortex of the left kidney. The renal cortex measures 1.8 cm. There are multiple cysts largest measuring 2.7 x 1.7 x 1.7 cm. . Nonobstructing calculus measuring 1.6 x 1.9 cm. There is no left hydronephrosis diffusely increased cortical echoes and prominent renal pyramids are noted bilaterally consistent with nonspecific renal parenchymal disease. DISTAL LEFT URETER: There is non-visualization of the distal left ureter. There is no demonstrated left ureterovesical junction calculus. There is a visualized left ureteral jet. BLADDER: The distended urinary bladder has a volume of 487.43 ml. The prostate is enlarged.. Possibility of prostate invasion or bladder wall mass not excluded There is no demonstrated mass within the urinary bladder. There are no demonstrated bladder calculi. 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 Multiple bilateral renal cysts and nonobstructing calculus in the left kidney Mildly distended bladder in association with enlarged prostate. Cannot definitively exclude bladder wall mass or invasion by prostate. Cystoscopy would be useful for more definitive evaluation if indicated Electronically Signed: Lex Cottrell MD at 18:54 EDT ,
--- NOTE | 2024-07-09 17:25 | ED.RN ---
[facility] TO [facility], THEY SAID THE COLUMNIST WOULD CALL US BACK FOR INFORMATION/UPDATE ON BED ASSIGNMENT THEY REQUEST I SEND OVER MEDICAL INFORMATION FOR PT. TO [phone]
--- NOTE | 2024-07-09 17:29 | CT_ITS ---
EXAM: CT ABDOMEN AND PELVIS WITHOUT INTRAVENOUS CONTRAST CLINICAL INDICATION: Renal/bladder anatomym, leukocytosis TECHNIQUE: Helically acquired images were obtained of the abdomen and pelvis without intravenous contrast. This CT exam was performed using one or more of the following dose reduction techniques: automated exposure control, adjustment of the mA and/or kV according to patient size, and/or use of iterative reconstruction technique. COMPARISON: PET CT 01/20/2024, 02/06/2022. FINDINGS: LOWER THORAX: Unremarkable. Lung bases are clear. No cardiomegaly. No significant pericardial effusion. ABDOMEN: LIVER: Unremarkable. Homogeneous. GALLBLADDER AND BILE DUCTS: Unremarkable. No calcified gallstones. No gallbladder distention or wall edema. No intra- or extrahepatic biliary ductal dilation. PANCREAS: Unremarkable. No focal cystic mass. SPLEEN: Unremarkable. Normal size without focal cystic or solid mass. ADRENALS: Unremarkable. No nodules. KIDNEYS AND URETERS: No hydronephrosis on the right. Mild hydronephrosis on the left. Thick-walled mid to distal left ureter suspicious for inflammation or transitional cell carcinoma. Multiple renal cysts bilaterally, not adequately characterized on this delayed contrast study. 3.3 cm mid pole right renal cyst with CT density 35 Hounsfield units. 2 cm lower pole left renal cyst with CT density 54 Hounsfield units. 2.9 cm lesion mid pole right kidney CT density 47 Hounsfield units. These findings are not consistent with simple renal cysts and may represent hemorrhagic cysts or solid lesions. These appear moderately enlarged compared to 2022. STOMACH AND BOWEL: Diverticulosis. No acute diverticulitis. No stomach or bowel distention. PELVIS: APPENDIX: No evidence of acute appendicitis. BLADDER: Bladder is partially distended. Mild thickening of the bladder wall posteriorly and inferiorly. This is nonspecific and may be due to infection versus malignancy. REPRODUCTIVE: Prostate gland measures 7.6 x 7.6 x 8.9 cm. ABDOMEN and PELVIS: INTRAPERITONEAL SPACE: Unremarkable. No ascites or other fluid collection. No free air. BONES/JOINTS: Unremarkable. No suspicious lytic or blastic abnormality. SOFT TISSUES: Unremarkable. No discrete abdominal or pelvic wall hernia. VASCULATURE: Unremarkable. Abdominal aorta is normal in caliber. LYMPH NODES: Unremarkable. No enlarged lymph nodes. CT/Abdomen/Pelvis without Cont IMPRESSION: 1. Mild left hydronephrosis with thick-walled mid to distal ureter, concerning for infection versus transitional cell malignancy. 2. Markedly enlarged prostate gland. 3. Bilateral renal lesions not consistent with simple cysts. Hemorrhagic cysts are favored over solid lesions. Electronically Signed: Nichole Guzman MD at 18:20 EDT Reading Location ID and State: [id number] / Tel , Service support ,
[2024-07-09 17:37] LABS: Reflex Lactate? Y
--- NOTE | 2024-07-09 18:15 | PCM.HP.STD ---
HPI - General General Date of Admission: 07/09/24 HPI Narrative LORI LYNCH, is a 78 M who presents to the hospital with feeling unwell for about a week that significantly worsened over the last 2 or 3 days. He does have a history of UTIs and presents with a white count of 30.5. He was having significant weakness, he had an episode last week where he just felt he could not get his legs under him but this resolved after about 15 minutes. Today he has continued to feel weak. Initially there was concern for stroke however given symptomatology this is more likely related to infection. He did bladder scan for 450 cc and nursing did attempt to place a Diego however he has a significantly enlarged prostate, urology did request a CT scan of his abdomen and pelvis which is currently pending. His daughter at bedside did note that he had an episode of nausea and vomiting prior to the ambulance his arrival and that he has been feeling cold and going outside in the sun to warm up over the last week. [facility] Medical History Diabetes High cholesterol HTN (hypertension) Smoker Prostate enlargement Lung cancer Allergy/AdvReac Type Severity Reaction Status Date / Time amoxicillin (From Augmentin) Allergy Hives Verified 03/14/22 12:27 clavulanic acid (From Allergy Hives Verified 03/14/22 12:27 Augmentin) lisinopril Allergy Other Verified 03/14/22 12:27 Family History (Updated 07/09/24 @ 18:[address] Olman Mcclellan MD) Other Diabetes Surgical History H/O shoulder replacement Social History Smoking Status: Current every day smoker tobacco type: cigarettes ROS Constitutional Constitutional: Reports chills, fatigue and weakness; Denies fever(s) or malaise Eyes Eyes: Denies blurry vision ENT HEENT: Denies headache(s) or nasal discharge Cardiovascular Cardiovascular: Denies chest pain, dyspnea on exertion or syncope Respiratory/Chest Respiratory/Chest: Denies cough, shortness of breath at rest or shortness of breath with exertion Gastrointestinal Gastrointestinal: Reports nausea and vomiting; Denies constipation or diarrhea Genitourinary Genitourinary: Denies dysuria Neurologic Neurologic: Denies focal weakness, numbness or tremor(s) Psychiatric Psychiatric: Denies anxiety or depression Vital Signs Vital Signs Vital Signs: 07/09/24 11:40 07/09/24 11:41 07/09/24 12:34 Temperature 102.1 F H Temperature Source Oral Pulse Rate 85 Respiratory Rate 19 H Respiratory Effort Normal Respiratory Pattern Normal Blood Pressure 140/58 H Blood Pressure Mean 85 Pulse Ox 90 Oxygen Delivery Method Room Air Room Air Oxygen Flow Rate (L/min) 96 07/09/24 12:34 07/09/24 13:04 07/09/24 13:30 Temperature Temperature Source Pulse Rate 83 83 80 Respiratory Rate 22 H 23 H 22 H Respiratory Effort Respiratory Pattern Blood Pressure 143/66 H 138/61 H 143/72 H Blood Pressure Mean 91 86 95 Pulse Ox 93 93 92 Oxygen Delivery Method Room Air Room Air Room Air Oxygen Flow Rate (L/min) 07/09/24 13:40 07/09/24 15:55 07/09/24 16:11 Temperature 99 F Temperature Source Pulse Rate 82 83 83 Respiratory Rate 17 18 20 H Respiratory Effort Respiratory Pattern Blood Pressure 143/72 H 122/52 H 133/63 H Blood Pressure Mean 95 75 86 Pulse Ox 94 94 91 Oxygen Delivery Method Room Air Room Air Oxygen Flow Rate (L/min) 07/09/24 16:16 Temperature 99 F Temperature Source Oral Pulse Rate 89 Respiratory Rate 17 Respiratory Effort Respiratory Pattern Blood Pressure 128/64 H Blood Pressure Mean 85 Pulse Ox 93 Oxygen Delivery Method Room Air Oxygen Flow Rate (L/min) Physical Exam Narrative General: Alert, Oriented x3, Cooperative, No apparent distress HEENT: Atraumatic, PERRLA, EOMI, Normocephalic Oral: Moist Mucosa Neck: Supple, No JVD Lungs: Diminished, Normal air movement, No rhonchi, No wheeze, No rales Cardiovascular: Regular rate, Regular Rhythm, Normal S1, Normal S2, No murmurs Abdomen: Soft, Non Tender, Non-Distended, No Hepato-splenomegaly Extremities: No edema, Capillary Refill Less than 3 Seconds Skin: No rashes, No breakdown Musculoskeletal: No Tenderness to Palpation of Joints or Extremities Neurological: No focal neurological deficits, Motor Exam 5/5 strength throughout, Sensory exam intact to light touch and pain Psych/Mental Status: Normal Affect, Appropriate Results Lab / Micro Data 07/09/24 13:00 07/09/24 13:00 Labs: Laboratory Results - last 24 hr 07/09/24 13:00: WBC 30.5 H*, RBC 4.99, Hgb 12.8 L, Hct 41.4, MCV 83.0, MCH 25.7 L, MCHC 30.9 L, RDW Std Deviation 52.7 H, RDW Coeff of Marlene 17.6 H, Plt Count 255, MPV 11.5, Immature Gran % (Auto) 1.600 H, Neut % (Auto) 77.2 H, Lymph % (Auto) 5.9 L, [place] % (Auto) 14.6 H, Eos % (Auto) 0.3, Baso % (Auto) 0.4, Absolute Neuts (auto) 23.5 H, Absolute Lymphs (auto) 1.80, Nucleated RBC % 0, Differential Comment SCANNED, Diff Path Review February, Plt Morphology Comment LARGE, Polychromasia 2+, Anisocytosis 2+, PT 15.6 H, INR 1.2, APTT 27.5, Sodium 138, Potassium 4.5, Chloride 108 H, Carbon Dioxide 19.0 L, Anion Gap 11, BUN 43 H, Creatinine 2.73 H, Est GFR (MDRD) Af Amer 29 L, Est GFR (MDRD) Non-Af 24 L, BUN/Creatinine Ratio 15.8, Glucose 224 H, Calcium 9.3, Total Bilirubin 0.50, Direct Bilirubin 0.14, AST 23, ALT 15 L, Alkaline Phosphatase 116, Troponin I High Sens 18, Total Protein 7.5, Albumin 2.8 L, Globulin 4.7 H 07/09/24 13:30: Lactic Acid 2.1 H* Micro: Microbiology 07/09/24 13:21 Mucosa - Nose SARS-CoV-2, Influenza & RSV (PCR) - Final Imaging Radiology Impression Head/Neck CTA 07/09/24 12:37 IMPRESSION: 1. Chronic ischemic and involutional changes of the brain. STUDY: CTA HEAD AND NECK WITH CONTRAST REASON FOR EXAM: Male, 78 years old. Neuro deficit, acute, stroke suspected Additional clinical history: 78-year-old male with an apparent history of lung carcinoma, presenting for restaging examination and evaluation of pulmonary nodularity. RADIATION DOSAGE (If Supplied By Facility): CTDIvol = ( 29.82 ) mGy, DLP = ( 1633.75 ) mGycm TECHNIQUE: CT angiography was performed with a multi-detector CT scanner. Data acquisition was obtained from the skull base through the vertex following intravenous administration of IV 75mL Isovue-370. MIP images were reconstructed from the axial data set. Post-processing of the angiographic images was performed, with multiplanar reformation and 3D reconstruction. Individualized dose optimization techniques were used for this CT. COMPARISON: No relevant priors. FINDINGS: Normal bilateral petrous carotid arteries. There is calcified plaque formation of the right cavernous carotid artery, without a cross-sectional luminal stenosis. There is calcified plaque formation of the left cavernous carotid artery, with a mild stenosis (less than 50%). Normal right A1 segments of the anterior cerebral artery. Normal left A1 segments of the anterior cerebral artery. Normal intact anterior communicating artery (ACOM). Normal bilateral A2 segments of the anterior cerebral arteries. Normal right M1 and M2 segments of the middle cerebral arteries, with a normal M1 bifurcation. Normal left M1 and M2 segments of the middle cerebral arteries, with a normal M1 bifurcation. Normal right posterior communicating artery (PCOM). There is non-visualization of the left posterior communicating artery (PCOM). Normal bilateral vertebral arteries. There is tortuosity with elongation of the basilar artery. The visualized bilateral superior cerebellar (SCA) arteries are normal. Normal bilateral P1, P2 and visualized P3 segments of the posterior cerebral arteries. There is no demonstrated aneurysm of the [place]. no demonstrated thrombus or occlusion or hemodynamically significant stenosis of the major intracranial arteries. Fully patent and normal enhancement of the major intracranial venous sinuses, with no evidence of venous sinus thrombosis or occlusion. NECK CTA: 6 mm nodule in the lateral subpleural region of the right upper lobe seen on image 5 series 4. Refer to recent CT of the chest and PET CT exams. This nodule should be followed up according to Fleischner Society''s criteria an annual CT lung cancer screening studies. Cystic emphysematous changes and interstitial thickening is seen in the bilateral upper lobes. AORTIC ARCH: There is atherosclerotic calcific plaque formation of the aortic arch and great vessels arising from the aortic arch, without a hemodynamically significant stenosis. There is a normal origin of the brachiocephalic, left common carotid, and left subclavian arteries. Mild atherosclerotic plaque and tortuosity origins of the brachiocephalic, left common carotid, and left subclavian arteries. RIGHT CAROTID ARTERIES: Normal right common carotid artery (CCA). There is mild atherosclerotic plaque formation with minimal narrowing of the right carotid bulb. There is mild atherosclerotic plaque formation of the origin of the right internal carotid artery with less than 50% cross sectional diameter stenosis. Normal visualized cervical portion of the right internal carotid artery. Normal origin of the right external carotid artery (ECA). LEFT CAROTID ARTERIES: Normal left common carotid artery (CCA). Normal left common carotid bulb. Normal origin of the left internal carotid (ICA) artery without a hemodynamically significant stenosis. Normal visualized cervical portion of the left internal carotid artery. Normal origin of the left external carotid artery (ECA). VERTEBRAL ARTERIES: Normal bilateral vertebral arteries. No demonstrated vertebral artery thrombus or occlusion or dissection. IMPRESSION: No demonstrated large vessel occlusion 1. Head CTA: There is no demonstrated aneurysm of the [place]. no demonstrated thrombus or occlusion or hemodynamically significant stenosis of the major intracranial arteries. Fully patent and normal enhancement of the major intracranial venous sinuses, with no evidence of venous sinus thrombosis or occlusion. 2. Neck CTA: Mild atherosclerotic plaque and stenosis of the right carotid bulb and origin of the ICA. 3. MRI of the brain can be obtained for small infarcts and perforating vessel disease not detected by CT. 4. 6 mm nodule in the lateral subpleural region of the right upper lobe seen on image 1/565 series 4. Refer to recent CT of the chest and PET CT exams. This nodule should be followed up according to Fleischner Society''s criteria an annual CT lung cancer screening studies. Electronically Signed: Woo Enriquez MD at 15:19 EDT Reading Location ID and State: [facility] / [place] , Service support , Chest X-Ray 07/09/24 14:12 IMPRESSION: No active or acute cardiopulmonary disease. Electronically Signed: Patrick Herrera MD at 14:24 EDT , Assessment & Plan Assessment/Plan (1) UTI (urinary tract infection): (2) BPH with obstruction/lower urinary tract symptoms: PLAN: Plan 1. Sepsis secondary to UTI from BPH with obstruction/JOB ? Nursing staff was unable to place a Diego ? She does meet SIRS criteria with leukocytosis, fever and tachypnea with a source of infection being his urine ? Did consult urology recommended CT of the abdomen pelvis, the read is pending however on my read it does demonstrate bilateral hydronephrosis. Right is really just with stranding ? Given his leukocytosis of 30,000, will be low but more aggressive and continue with cefepime renally dosed ? Continue with gentle IV fluids ? Will attempt to obtain outpatient medication lists DVT: Heparin 75 minutes was spent on direct patient care, including documentation as well as chart review and collaboration with colleagues Charges/Coding Visit Charges Inpatient E&M: 37097 Init Hosp L3
[2024-07-09 19:27] LABS: Lactic Acid 1.1 mmol/L (0.4-1.9)
--- NOTE | 2024-07-09 20:19 | ED.RN ---
ANNALISE REYNA AND WAITED FOR HIM TO CALL BACK FOR 1HR OR SO HE NEVER DID. I WAS THEN CONNECTED WITH HIS PHONE AND IT RANG TO VOICEMAIL, I LEFT A VOICEMAIL. THEN 20 MIN LATER I CALLED DEVELOPMENTAL THERAPIST AGAIN TO TRY AND BE CONNECTED WITH HIM, SHE WOULD NOT CONNECT ME AND INSISTED THAT SHE PAGE AGAIN. I TOLD HER THAT WE HAVE GIVEN [facility] MULTIPLE OPPORTUNITIES TO ANSWER US AND I'D LIKE TO BE CONNECTED. SHE PUT ME ON HOLD AND TOLD BE THAT SHE ATTEMPTED TO CALL HIM AND HE DID NOT ANSWER SO SHE WAS GOING TO PAGE HIM AGAIN.
[2024-07-09] MEDS: 0.9% Normal Saline (1000mL) 1,000 ML 100 ML IV (22:30)
[2024-07-09] MEDS: Heparin Injection (Vial) 5,000 UNIT/ML VIAL 5000 UNIT SC (22:33)
[2024-07-09 22:44] LABS: Bacteria 0 SEEN /hpf (None Seen); Mucous, Urine 0 SEEN /hpf (<or=2+); Squamous Epithelial Cells - UA 0 SEEN /hpf (0-5)
[2024-07-09 22:47] LABS: Color, Urine Red (Yellow); Glucose, Dipstick Normal (Normal); Ketone-Dipstick Negative (Negative); Leukocyte Esterase-Dipstick 500 /ul (Negative); Nitrite-Dipstick Negative (Negative); Occult Blood-Urine 250 /ul (Negative); Protein-Dipstick 100 mg/dl (Negative); Urine Bilirubin Dipstick Negative (Negative); Urine Clarity Turbid (Clear); Urine Urobilinogen Normal (Normal); Urine pH 6.5 (5.0 - 8.0)
[2024-07-09 22:59] LABS: Red Blood Cells-Urine 50-100 SEEN /hpf (0-5); White Blood Cells 25-50 SEEN /hpf (0-5)
[2024-07-10] VITALS (12 sets, daily range): BP systolic 129–152; BP diastolic 67–78; PULSE 90–95; RESP 16–18; TEMP 36.9–38.2; O2SAT 93–100; BMI 34.2
[2024-07-10 06:26] LABS: Absolute Lymphocyte Count 1.29 X10^3/uL (0.83-4.51); Absolute Neutrophil Count 25.2 X10^3/uL (2.0-7.7); Basophil# 0.11 X10^3/uL; Basophil% 0.4 % (0-1); Eosinophil# 0.03 X10^3/uL; Eosinophils% 0.1 % (0-5); Hematocrit 39.9 % (40-54); Hemoglobin 12.7 g/dL (13.0-16.5); Lymphocyte # 1.29 X10^3/ul (0.83-4.51); Lymphocyte % 4.2 % (19-41); Mean Corp Hgb Conc 31.8 g/dL (32-36); Mean Corpuscular Hgb 25.9 pg (27.0-32.0); Mean Corpuscular Volume 81.4 fL (80-94); Mean Platelet Vol. 11.1 fl (6.2-12.0); Monocyte# 4.11 X10^3/uL; Monocyte% 13.2 % (0-10); NRBC Flagged by Analyzer 0 % (0-5); Neutrophil # 25.23 X10^3/uL (2.7-7.7); Neutrophil % 81.1 % (47-70); POSITIVE COUNT YES; POSITIVE DIFFERENTIAL YES; Platelet Count 214 K/mm3 (150-450); RBC Distribution Width CV 17.6 % (11.6-14.6); RBC Distribution Width SD 51.9 fl (35.1-43.9)
[2024-07-10 06:39] LABS: Differential Indicated SCAN CRITERIA MET; White Blood Count 31.1 K/mm3 (4.4-11.0)
[2024-07-10 06:52] LABS: Anion Gap 8 (5-15); BUN 41 mg/dL (7-18); BUN/Creat Ratio 17.3 RATIO (10-20); Calcium,Total 8.5 mg/dL (8.5-10.1); Chloride 110 mmol/L (98-107); Creatinine, Serum 2.37 mg/dL (0.70-1.30); EST Glomerular Filtration Rate 28 mL/min (>60); Est Glom Filt Rate - Afr Amer 34 mL/min (>60); Estimated Creatinine Clearance 29.79 ml/min; Glucose 212 mg/dL (74-106); Potassium 4.4 mmol/L (3.5-5.1); Sodium Level 137 mmol/L (136-145)
--- NOTE | 2024-07-10 07:41 | PN.HOSP_ITS ---
Reason for Visit Reason for Visit: Diagnoses Other obstructive and reflux uropathy (07/09/24) Urinary tract infection, site not specified (07/09/24) Benign prostatic hyperplasia with lower urinary tract symptoms (07/09/24) Subjective Subjective Feeling well. No abdominal pain. No fever. Objective Data Objective Data Vital Signs: Vital Signs Temp Pulse Resp BP Pulse Ox O2 Del Method O2 Flow Rate 37.3 C H 94 17 143/78 H 95 Nasal Cannula 2 07/10/24 05:07/10/24 05:07/10/24 05:07/10/24 05:07/10/24 05:07/10/24 05:07/10/24 05:29 Oxygen Flow Rate (L/min) 2 Oxygen Delivery Method Nasal Cannula Weight: 102.3 kg Body Mass Index (BMI) 33.3 Intake & Output: Intake and Output for Last 24 Hours 07/08/24 07/09/24 07/10/24 23:59 23:59 23:59 Intake Total 2049 200 / 200 Output Total 300 / 300 Balance 2049 -100 / -100 Lab / Micro Data 07/10/24 06:10 07/10/24 06:10 Labs: Laboratory Results - last 24 hr 07/09/24 13:00: WBC 30.5 H*, RBC 4.99, Hgb 12.8 L, Hct 41.4, MCV 83.0, MCH 25.7 L, MCHC 30.9 L, RDW Std Deviation 52.7 H, RDW Coeff of Marlene 17.6 H, Plt Count 255, MPV 11.5, Immature Gran % (Auto) 1.600 H, Neut % (Auto) 77.2 H, Lymph % (Auto) 5.9 L, [place] % (Auto) 14.6 H, Eos % (Auto) 0.3, Baso % (Auto) 0.4, A bsolute Neuts (auto) 23.5 H, Absolute Lymphs (auto) 1.80, Nucleated RBC % 0, Differential Comment SCANNED, Diff Path Review May , Plt Morphology Comment LARGE, Polychromasia 2+, Anisocytosis 2+, PT 15.6 H, INR 1.2, APTT 27.5, Sodium 138, Potassium 4.5, Chloride 108 H, Carbon Dioxide 19.0 L, Anion Gap 11, BUN 43 H, Creatinine 2.73 H, Est GFR (MDRD) Af Amer 29 L, Est GFR (MDRD) Non-Af 24 L, BUN/Creatinine Ratio 15.8, Glucose 224 H, Calcium 9.3, Total Bilirubin 0.50, Direct Bilirubin 0.14, AST 23, ALT 15 L, Alkaline Phosphatase 116, Troponin I High Sens 18, Total Protein 7.5, Albumin 2.8 L, Globulin 4.7 H 07/09/24 13:30: Lactic Acid 2.1 H* 07/09/24 16:30: Lactic Acid 1.1 07/09/24 22:25: Urine Color Red, Urine Clarity Turbid, Urine pH 6.5, Ur Specific [place] 1.010, Urine Protein 100 H, Urine Glucose (UA) Normal, Urine Ketones Negative, Urine Occult Blood 250 H, Urine Nitrite Negative, Urine Bilirubin Negative, Urine Urobilinogen Normal, Ur Leukocyte Esterase 500 H, Urine RBC 50- 100 SEEN, Urine WBC 25-50 SEEN, Ur Squamous Epith Cells 0 SEEN, Urine Bacteria 0 SEEN, Urine Mucus 0 SEEN 07/10/24 06:10: WBC 31.1 H*, RBC 4.90, Hgb 12.7 L, Hct 39.9 L, MCV 81.4, MCH 25.9 L, MCHC 31.8 L, RDW Std Deviation 51.9 H, RDW Coeff of Marlene 17.6 H, Plt Count 214, MPV 11.1, Immature Gran % (Auto) 1.000 H, Neut % (Auto) 81.1 H, Lymph % (Auto) 4.2 L, [place] % (Auto) 13.2 H, Eos % (Auto) 0.1, Baso % (Auto) 0.4, A bsolute Neuts (auto) 25.2 H, Absolute Lymphs (auto) 1.29, Nucleated RBC % 0, Sodium 137, Potassium 4.4, Chloride 110 H, Carbon Dioxide 19.0 L, Anion Gap 8, B UN 41 H, Creatinine 2.37 H, Estim Creat Clear Calc 29.79, Est GFR (MDRD) Af Amer 34 L, Est GFR (MDRD) Non-Af 28 L, BUN/Creatinine Ratio 17.3, Glucose 212 H, Calcium 8.5 Micro: Microbiology 07/09/24 13:21 Blood Culture (Wb) - Venous Blood Culture - Preliminary 07/09/24 13:21 Mucosa - Nose SARS-CoV-2, Influenza & RSV (PCR) - Final Radiography Diagnostic Testing: Radiology Impression Head/Neck CTA 07/09/24 12:37 IMPRESSION: 1. Chronic ischemic and involutional changes of the brain. STUDY: CTA HEAD AND NECK WITH CONTRAST REASON FOR EXAM: Male, 78 years old. Neuro deficit, acute, stroke suspected Additional clinical history: 78-year-old male with an apparent history of lung carcinoma, presenting for restaging examination and evaluation of pulmonary nodularity. RADIATION DOSAGE (If Supplied By Facility): CTDIvol = ( 29.82 ) mGy, DLP = ( 1633.75 ) mGycm TECHNIQUE: CT angiography was performed with a multi-detector CT scanner. Data acquisition was obtained from the skull base through the vertex following intravenous administration of IV 75mL Isovue-370. MIP images were reconstructed from the axial data set. Post-processing of the angiographic images was performed, with multiplanar reformation and 3D reconstruction. Individualized dose optimization techniques were used for this CT. COMPARISON: No relevant priors. FINDINGS: Normal bilateral petrous carotid arteries. There is calcified plaque formation of the right cavernous carotid artery, without a cross-sectional luminal stenosis. There is calcified plaque formation of the left cavernous carotid artery, with a mild stenosis (less than 50%). Normal right A1 segments of the anterior cerebral artery. Normal left A1 segments of the anterior cerebral artery. Normal intact anterior communicating artery (ACOM). Normal bilateral A2 segments of the anterior cerebral arteries. Normal right M1 and M2 segments of the middle cerebral arteries, with a normal M1 bifurcation. Normal left M1 and M2 segments of the middle cerebral arteries, with a normal M1 bifurcation. Normal right posterior communicating artery (PCOM). There is non-visualization of the left posterior communicating artery (PCOM). Normal bilateral vertebral arteries. There is tortuosity with elongation of the basilar artery. The visualized bilateral superior cerebellar (SCA) arteries are normal. Normal bilateral P1, P2 and visualized P3 segments of the posterior cerebral arteries. There is no demonstrated aneurysm of the [place]. no demonstrated thrombus or occlusion or hemodynamically significant stenosis of the major intracranial arteries. Fully patent and normal enhancement of the major intracranial venous sinuses, with no evidence of venous sinus thrombosis or occlusion. NECK CTA: 6 mm nodule in the lateral subpleural region of the right upper lobe seen on image 1/565 series 4. Refer to recent CT of the chest and PET CT exams. This nodule should be followed up according to Fleischner Society''s criteria an annual CT lung cancer screening studies. Cystic emphysematous changes and interstitial thickening is seen in the bilateral upper lobes. AORTIC ARCH: There is atherosclerotic calcific plaque formation of the aortic arch and great vessels arising from the aortic arch, without a hemodynamically significant stenosis. There is a normal origin of the brachiocephalic, left common carotid, and left subclavian arteries. Mild atherosclerotic plaque and tortuosity origins of the brachiocephalic, left common carotid, and left subclavian arteries. RIGHT CAROTID ARTERIES: Normal right common carotid artery (CCA). There is mild atherosclerotic plaque formation with minimal narrowing of the right carotid bulb. There is mild atherosclerotic plaque formation of the origin of the right internal carotid artery with less than 50% cross sectional diameter stenosis. Normal visualized cervical portion of the right internal carotid artery. Normal origin of the right external carotid artery (ECA). LEFT CAROTID ARTERIES: Normal left common carotid artery (CCA). Normal left common carotid bulb. Normal origin of the left internal carotid (ICA) artery without a hemodynamically significant stenosis. Normal visualized cervical portion of the left internal carotid artery. Normal origin of the left external carotid artery (ECA). VERTEBRAL ARTERIES: Normal bilateral vertebral arteries. No demonstrated vertebral artery thrombus or occlusion or dissection. IMPRESSION: No demonstrated large vessel occlusion 1. Head CTA: There is no demonstrated aneurysm of the [place]. no demonstrated thrombus or occlusion or hemodynamically significant stenosis of the major intracranial arteries. Fully patent and normal enhancement of the major intracranial venous sinuses, with no evidence of venous sinus thrombosis or occlusion. 2. Neck CTA: Mild atherosclerotic plaque and stenosis of the right carotid bulb and origin of the ICA. 3. MRI of the brain can be obtained for small infarcts and perforating vessel disease not detected by CT. 4. 6 mm nodule in the lateral subpleural region of the right upper lobe seen on image 1/565 series 4. Refer to recent CT of the chest and PET CT exams. This nodule should be followed up according to Fleischner Society''s criteria an annual CT lung cancer screening studies. Electronically Signed: Woo Enriquez MD at 15:19 EDT , Chest X-Ray 07/09/24 14:12 IMPRESSION: No active or acute cardiopulmonary disease. Electronically Signed: Patrick Herrera MD at 14:24 EDT , Renal Ultrasound 07/09/24 17:21 IMPRESSION: Findings consistent with nonspecific renal parenchymal disease. Multiple bilateral renal cysts and nonobstructing calculus in the left kidney Mildly distended bladder in association with enlarged prostate. Cannot definitively exclude bladder wall mass or invasion by prostate. Cystoscopy would be useful for more definitive evaluation if indicated Electronically Signed: Lex Cottrell MD at 18:54 EDT , Abdomen/Pelvis CT 07/09/24 17:29 IMPRESSION: 1. Mild left hydronephrosis with thick-walled mid to distal ureter, concerning for infection versus transitional cell malignancy. 2. Markedly enlarged prostate gland. 3. Bilateral renal lesions not consistent with simple cysts. Hemorrhagic cysts are favored over solid lesions. Electronically Signed: Nichole Guzman MD at 18:20 EDT Reading Location ID and State: [id number] / Tel , Service support , Physical Exam Const alert and no apparent distress HEENT head/scalp atraumatic and moist oral mucous membranes Resp normal respiratory effort, no retractions, no use of accessory muscles and clear to auscultation bilaterally Cardio regular rate, regular rhythm, S1 normal heart sound and S2 normal heart sound GI normal to inspection, nondistended, normoactive bowel sounds, soft to palpation and non-tender Neuro Sensorium / Orientation: awake and alert Psych affect normal Assessment & Plan Assessment/Plan (1) UTI (urinary tract infection): (2) BPH with obstruction/lower urinary tract symptoms: PLAN: Plan Sepsis: * POA: SIRS 3/4 (WBC 31.1, WBC 23, Fever 38.9) * CT of the abdomen pelvis showed mild left hydronephrosis with thick-walled mid to distal ureter concerning for infection. Markedly enlarged prostate glands. * Follow-up blood and urine cultures * Seen by urology and the plan is to take him to surgery today. UTI * On cefepime VTE prophylaxis with enoxaparin Charges/Coding Visit Charges Inpatient E&M: 58551 Subs Hosp L2
[2024-07-10] MEDS: 0.9% Normal Saline (1000mL) 1,000 ML 100 ML IV ×2 (08:22→16:43)
[2024-07-10 09:32] LABS: Atypical Lymphocyte 1+ %; Platelet Morphology GIANT
[2024-07-10] MEDS: Cefepime HCl 1 GM in 0.9% Normal Saline (50mL MB+) 50 ML IV (09:49)
--- NOTE | 2024-07-10 10:22 | PCM.CONS.U ---
HPI Consult Data Date of Consult: 07/10/24 HPI Narrative Reason for Consultation: Left pyelonephritis HPI Narrative: LORI LYNCH, is a 78 M who presents to the hospital with a white count of 30,000 he has a urinary tract infection nurses attempted to place the catheter in the emergency room were unsuccessful some sort of obstruction or blockage he does state that he had an aqua ablation procedure in his prostate. This was done in [place]. I attempted to place the catheter bedside as well using some wires and dilators but the patient refused was too painful. He has been able to urinate but his white count still high has been running fevers I think he is going to need intervention so I recommended taken to surgery for cystoscopy stent placement on the left side for his pyelo and Diego placement. Patient initially was resistant to the idea but I told him that in order to improve his outcome and potential to decompress his urinary system and the infection we need to do this procedure and then he was agreeable. [facility] Medical History Diabetes High cholesterol HTN (hypertension) Smoker Prostate enlargement Lung cancer Allergy/AdvReac Type Severity Reaction Status Date / Time amoxicillin (From Augmentin) Allergy Hives Verified 03/14/22 12:27 clavulanic acid (From Allergy Hives Verified 03/14/22 12:27 Augmentin) lisinopril Allergy Other Verified 03/14/22 12:27 Family History Other Diabetes Surgical History H/O shoulder replacement Social History Smoking Status: Current every day smoker tobacco type: cigarettes Lab / Micro Data 07/10/24 06:10 07/10/24 06:10 Labs: Laboratory Results - last 24 hr 07/09/24 13:00: WBC 30.5 H*, RBC 4.99, Hgb 12.8 L, Hct 41.4, MCV 83.0, MCH 25.7 L, MCHC 30.9 L, RDW Std Deviation 52.7 H, RDW Coeff of Marlene 17.6 H, Plt Count 255, MPV 11.5, Immature Gran % (Auto) 1.600 H, Neut % (Auto) 77.2 H, Lymph % (Auto) 5.9 L, [place] % (Auto) 14.6 H, Eos % (Auto) 0.3, Baso % (Auto) 0.4, Absolute Neuts (auto) 23.5 H, Absolute Lymphs (auto) 1.80, Nucleated RBC % 0, Differential Comment SCANNED, Diff Path Review May foll, Plt Morphology Comment LARGE, Polychromasia 2+, Anisocytosis 2+, PT 15.6 H, INR 1.2, APTT 27.5, Sodium 138, Potassium 4.5, Chloride 108 H, Carbon Dioxide 19.0 L, Anion Gap 11, BUN 43 H, Creatinine 2.73 H, Est GFR (MDRD) Af Amer 29 L, Est GFR (MDRD) Non-Af 24 L, BUN/Creatinine Ratio 15.8, Glucose 224 H, Calcium 9.3, Total Bilirubin 0.50, Direct Bilirubin 0.14, AST 23, ALT 15 L, Alkaline Phosphatase 116, Troponin I High Sens 18, Total Protein 7.5, Albumin 2.8 L, Globulin 4.7 H 07/09/24 13:30: Lactic Acid 2.1 H* 07/09/24 16:30: Lactic Acid 1.1 07/09/24 22:25: Urine Color Red, Urine Clarity Turbid, Urine pH 6.5, Ur Specific Jerome 1.010, Urine Protein 100 H, Urine Glucose (UA) Normal, Urine Ketones Negative, Urine Occult Blood 250 H, Urine Nitrite Negative, Urine Bilirubin Negative, Urine Urobilinogen Normal, Ur Leukocyte Esterase 500 H, Urine RBC 50-100 SEEN, Urine WBC 25-50 SEEN, Ur Squamous Epith Cells 0 SEEN, Urine Bacteria 0 SEEN, Urine Mucus 0 SEEN 07/10/24 06:10: WBC 31.1 H*, RBC 4.90, Hgb 12.7 L, Hct 39.9 L, MCV 81.4, MCH 25.9 L, MCHC 31.8 L, RDW Std Deviation 51.9 H, RDW Coeff of Marlene 17.6 H, Plt Count 214, MPV 11.1, Immature Gran % (Auto) 1.000 H, Neut % (Auto) 81.1 H, Lymph % (Auto) 4.2 L, [place] % (Auto) 13.2 H, Eos % (Auto) 0.1, Baso % (Auto) 0.4, Absolute Neuts (auto) 25.2 H, Absolute Lymphs (auto) 1.29, Nucleated RBC % 0, Diff Path Review May foll, Atypical Lymphocytes 1+, Plt Morphology Comment GIANT, Sodium 137, Potassium 4.4, Chloride 110 H, Carbon Dioxide 19.0 L, Anion Gap 8, BUN 41 H, Creatinine 2.37 H, Estim Creat Clear Calc 29.79, Est GFR (MDRD) Af Amer 34 L, Est GFR (MDRD) Non-Af 28 L, BUN/Creatinine Ratio 17.3, Glucose 212 H, Calcium 8.5 Micro: Microbiology 07/09/24 13:21 Blood Culture (Wb) - Venous Blood Culture - Preliminary 07/09/24 13:21 Mucosa - Nose SARS-CoV-2, Influenza & RSV (PCR) - Final Imaging Radiology Impression Head/Neck CTA 07/09/24 12:37 IMPRESSION: 1. Chronic ischemic and involutional changes of the brain. STUDY: CTA HEAD AND NECK WITH CONTRAST REASON FOR EXAM: Male, 78 years old. Neuro deficit, acute, stroke suspected Additional clinical history: 78-year-old male with an apparent history of lung carcinoma, presenting for restaging examination and evaluation of pulmonary nodularity. RADIATION DOSAGE (If Supplied By Facility): CTDIvol = ( 29.82 ) mGy, DLP = ( 1633.75 ) mGycm TECHNIQUE: CT angiography was performed with a multi-detector CT scanner. Data acquisition was obtained from the skull base through the vertex following intravenous administration of IV 75mL [id number]-370. MIP images were reconstructed from the axial data set. Post-processing of the angiographic images was performed, with multiplanar reformation and 3D reconstruction. Individualized dose optimization techniques were used for this CT. COMPARISON: No relevant priors. FINDINGS: Normal bilateral petrous carotid arteries. There is calcified plaque formation of the right cavernous carotid artery, without a cross-sectional luminal stenosis. There is calcified plaque formation of the left cavernous carotid artery, with a mild stenosis (less than 50%). Normal right A1 segments of the anterior cerebral artery. Normal left A1 segments of the anterior cerebral artery. Normal intact anterior communicating artery (ACOM). Normal bilateral A2 segments of the anterior cerebral arteries. Normal right M1 and M2 segments of the middle cerebral arteries, with a normal M1 bifurcation. Normal left M1 and M2 segments of the middle cerebral arteries, with a normal M1 bifurcation. Normal right posterior communicating artery (PCOM). There is non-visualization of the left posterior communicating artery (PCOM). Normal bilateral vertebral arteries. There is tortuosity with elongation of the basilar artery. The visualized bilateral superior cerebellar (SCA) arteries are normal. Normal bilateral P1, P2 and visualized P3 segments of the posterior cerebral arteries. There is no demonstrated aneurysm of the [place]. no demonstrated thrombus or occlusion or hemodynamically significant stenosis of the major intracranial arteries. Fully patent and normal enhancement of the major intracranial venous sinuses, with no evidence of venous sinus thrombosis or occlusion. NECK CTA: 6 mm nodule in the lateral subpleural region of the right upper lobe seen on image 1/565 series 4. Refer to recent CT of the chest and PET CT exams. This nodule should be followed up according to Fleischner Society''s criteria an annual CT lung cancer screening studies. Cystic emphysematous changes and interstitial thickening is seen in the bilateral upper lobes. AORTIC ARCH: There is atherosclerotic calcific plaque formation of the aortic arch and great vessels arising from the aortic arch, without a hemodynamically significant stenosis. There is a normal origin of the brachiocephalic, left common carotid, and left subclavian arteries. Mild atherosclerotic plaque and tortuosity origins of the brachiocephalic, left common carotid, and left subclavian arteries. RIGHT CAROTID ARTERIES: Normal right common carotid artery (CCA). There is mild atherosclerotic plaque formation with minimal narrowing of the right carotid bulb. There is mild atherosclerotic plaque formation of the origin of the right internal carotid artery with less than 50% cross sectional diameter stenosis. Normal visualized cervical portion of the right internal carotid artery. Normal origin of the right external carotid artery (ECA). LEFT CAROTID ARTERIES: Normal left common carotid artery (CCA). Normal left common carotid bulb. Normal origin of the left internal carotid (ICA) artery without a hemodynamically significant stenosis. Normal visualized cervical portion of the left internal carotid artery. Normal origin of the left external carotid artery (ECA). VERTEBRAL ARTERIES: Normal bilateral vertebral arteries. No demonstrated vertebral artery thrombus or occlusion or dissection. IMPRESSION: No demonstrated large vessel occlusion 1. Head CTA: There is no demonstrated aneurysm of the [place]. no demonstrated thrombus or occlusion or hemodynamically significant stenosis of the major intracranial arteries. Fully patent and normal enhancement of the major intracranial venous sinuses, with no evidence of venous sinus thrombosis or occlusion. 2. Neck CTA: Mild atherosclerotic plaque and stenosis of the right carotid bulb and origin of the ICA. 3. MRI of the brain can be obtained for small infarcts and perforating vessel disease not detected by CT. 4. 6 mm nodule in the lateral subpleural region of the right upper lobe seen on image 1/565 series 4. Refer to recent CT of the chest and PET CT exams. This nodule should be followed up according to Fleischner Society''s criteria an annual CT lung cancer screening studies. Electronically Signed: Woo Enriquez MD at 15:19 EDT , Chest X-Ray 07/09/24 14:12 IMPRESSION: No active or acute cardiopulmonary disease. Electronically Signed: Patrick Herrera MD at 14:24 EDT , Renal Ultrasound 07/09/24 17:21 IMPRESSION: Findings consistent with nonspecific renal parenchymal disease. Multiple bilateral renal cysts and nonobstructing calculus in the left kidney Mildly distended bladder in association with enlarged prostate. Cannot definitively exclude bladder wall mass or invasion by prostate. Cystoscopy would be useful for more definitive evaluation if indicated Electronically Signed: Lex Cottrell MD at 18:54 EDT , Abdomen/Pelvis CT 07/09/24 17:29 IMPRESSION: 1. Mild left hydronephrosis with thick-walled mid to distal ureter, concerning for infection versus transitional cell malignancy. 2. Markedly enlarged prostate gland. 3. Bilateral renal lesions not consistent with simple cysts. Hemorrhagic cysts are favored over solid lesions. Electronically Signed: Nichole Guzman MD at 18:20 EDT Reading Location ID and State: [id number] / Tel , Service support ,
--- NOTE | 2024-07-10 10:50 | PRE.ANES_ITS ---
ASA Classification* ASA Classification ASA Classification: 3 and E Assessment & Plan Anesthesia* Anesthesia Assessment Anesthesia Assessment: Discussed sedation and/or anesthesia options, risks, benefits, and alternatives with patient/parents/legal guardian/POA. Questions invited. The patient/parents/legal guardian/POA seems to understand and agrees to proceed with anesthesia plan. Reviewed the physical assessment, medical history, allergy history and patient home medications list prior to surgery/procedure/anesthetic and documented any changes. Performed airway and anesthesia risk assessments. Anesthesia Type Anesthesia Type: MAC Anesthesia Focused Assessment* Temperature: 100.7 F Pulse Rate: 95 Blood Pressure: 152/78 Respiratory Rate: 18 Pulse Ox: 96 Airway Assessment Mouth opens: >3 cm Mallampati Score: III Focused Labs Anesthesia Preop lab: CBC WBC 31.1 K/mm3 (4.4-11.0) H* 07/10/24 06:10 RBC 4.90 M/mm3 (4.6-6.2) 07/10/24 06:10 Hgb 12.7 g/dL (13.0-16.5) L 07/10/24 06:10 Hct 39.9 % (40-54) L 07/10/24 06:10 Plt Count 214 K/mm3 (150-450) 07/10/24 06:10 CHEMISTRY Potassium 4.4 mmol/L (3.5-5.1) 07/10/24 06:10 Sodium 137 mmol/L (136-145) 07/10/24 06:10 BUN 41 mg/dL (7-18) H 07/10/24 06:10 Creatinine 2.37 mg/dL (0.70-1.30) H 07/10/24 06:10 Glucose 212 mg/dL (74-106) H 07/10/24 06:10 COAG PT 15.6 SECONDS (11.7-14.9) H 07/09/24 13:00 Pre-Assessment Diagnosis/Proposed Procedure Planned Operative Procedure(s): Cystoscopy, ureteral Stent placement Anesthesia History 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 When Was Last Pacemaker Check QUESTION #4 FULL TEXT: You/Your Family Experience fever (hyperthermia) with Anesthesia Last Oral Intake Last Oral intake: Last Oral Intake NPO since 10:30 07/10/24 11:13 Meds taken in AM with sips of No 07/10/24 11:13 water? 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 Has anyone observed you stop No 07/09/24 22:05 breathing during sleep? STOP Results Negative 07/10/24 12:35 QUESTION #5 FULL TEXT : Do you snore loudly (louder than talking or can be heard through closed doors)? 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 Specify any problems Hx of Preganancy in last 3 N/A 07/09/24 22:05 Months Nurse Filling Out Transfusion AHINES 07/09/24 22:05 & Questions: Date: 07/09/24 07/09/24 22:05 Time: 22:07 07/09/24 22:05 Patient unable to answer at this time (ie. 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: /Reproductive Hx- scrap metal processing worker Hx Now No 07/10/24 11:13 Gestational Age (in weeks): EDC: Hx Hx Para Hx Section SAB No 07/10/24 11:13 Active Medications Active Medications: Current Medications Generic Name Dose Route Start Last Admin Trade Name Freq PRN Reason Stop Dose Admin Heparin Sodium (Porcine) 5,000 unit 07/09/24 22:15 07/10/24 03:54 Heparin Injection (Vial) 5,000 Unit/Ml Vial SC Not Given Q8 TRAE Sodium Chloride 1,000 mls @ 100 mls/hr 07/09/24 22:15 07/10/24 08:22 IV 100 mls/hr .Q10H TRAE Administration Cefepime HCl 1 gm/ Sodium 50 mls @ 100 mls/hr 07/10/24 10:00 07/10/24 09:49 Chloride IV 100 mls/hr Q24 TRAE Administration Sodium Chloride 10 - 40 ml 07/09/24 22:02 0.9% Saline Lock 10 Ml Syringe IV UD PRN SALINE FLUSH PFSH Medical History Diabetes High cholesterol HTN (hypertension) Smoker Prostate enlargement Lung cancer Home Medications ?Medication ?Instructions ?Recorded ?Last Taken ?Type amlodipine 10 mg tablet 10 mg PO DAILY BP 07/10/24 07/09/24 10:00 History 10 mg aspirin 81 mg chewable tablet 81 mg PO DAILY blood thinner 07/10/24 07/09/24 08:00 History 81 mg atorvastatin 40 mg tablet 40 mg PO QPM cholesterol 07/10/24 07/09/24 22:00 History 40 mg ferrous gluconate 324 mg (38 mg 324 mg PO DAILY supplement 07/10/24 07/09/24 08:00 History iron) tablet 324 mg glipizide 10 mg tablet 10 mg PO BID diabetes 07/10/24 07/09/24 17:00 History 10 mg insulin glargine 100 unit/mL (3 18 unit subcut QPM diabetes 07/10/24 07/08/24 22:00 History mL) subcutaneous pen 18 units pregabalin 75 mg capsule (Lyrica) 75 mg PO BID pain 07/10/24 07/09/24 17:00 History 75 mg sitagliptin 25 mg tablet 25 mg PO DAILY diabetes 07/10/24 07/09/24 08:04 History 25 mg Allergy/AdvReac Type Severity Reaction Status Date / Time amoxicillin (From Augmentin) Allergy Hives Verified 03/14/22 12:27 clavulanic acid (From Allergy Hives Verified 03/14/22 12:27 Augmentin) lisinopril Allergy Other Verified 03/14/22 12:27 Family History Other Diabetes Surgical History H/O shoulder replacement Social History Smoking Status: Current every day smoker tobacco type: cigarettes Review of Systems (Anesthesia) ROS Narrative System reviewed and no additional complaints, except as documented.
--- NOTE | 2024-07-10 11:04 | CASEMGMT ---
LIONEL SELF Assessment: Face to Face with pt for initial transition planning/care coordination assessment. LIONEL SELF introduced self and role at [facility], pt voices understanding and consents to assessment. Pt is A&O x4 and answers all questions appropriately at this time. Pt lying in bed in no distress with oxygen on. Care providers, pharmacy, and demographics verified/updated. Admitting Dx: UTI PCP:[facility], [place] Main Specialists:Denies Preferred Pharmacy:[facility] Retail Insurance: [facility] benefit only Prescription Benefit: through [facility] only LNOK: Ciarra Wise, ; Archie Cason, dtr Living Arrangements: Pt lives with in a mobile home with 5 steps to enter with a rail. Pt reports he is I in ADLs and works together with to complete IADLs. Pt denies concerns at home. Transportation: Pt drives self and denies concerns with transportation. DME:CPAP, BGM with sufficient supply of strips and lancets and insulin with sufficient supply of insulin and needles HHC/SNF: Denies hx of Pt states no concerns with going home at time of dc. Pt to have cysto and stent. 6 cl=24 no therapy ordered. Pt states no further concerns/needs. CM to follow. Advised pt to ask CM if any further question/concerns/needs arise, voices understanding. Pt Goal: Home Plan: Home pending course of hospitalization Deepthi FLOWERS CM
[2024-07-10] MEDS: Lidocaine Jelly 2% 20 ML Syringe (URO-JET) 1 APPLIC (11:17)
--- NOTE | 2024-07-10 11:40 | PCM.POST.ANE ---
Anesthesia: Postop Eval I Current Vital Signs Temperature: 98.8 F Pulse Rate: 94 Blood Pressure: 147/72 Respiratory Rate: 18 Pulse Ox: 98 Oxygen Delivery Method: Nasal Cannula Oxygen Flow Rate (L/min): 2 Assessment Airway patent: Yes Spontaneous unlabored respirations: Yes nausea: No Vomiting: No Anesthesia Complication: No Fluid Hydration Crystalloid volume administer (ml): 1,000 Total IV fluid infused: 1,000 Progress Note Anesthesia document: Postop Eval 1 completed: Yes
--- NOTE | 2024-07-10 12:23 | PCM.OPRPT ---
Report of Operation Date of Procedure: 07/10/24 Pre-Operative Diagnosis: Urinary tract infection BPH with obstruction and left pyelonephritis Post-Operative Diagnosis: The same Surgery/Procedure Performed:: Cystoscopy, complicated Patricio placement, attempted left stent placement Description of Surgical Findings:: Indication is a 78-year-old male history of a very large prostate he had some sort of aqua ablation procedure on the prostate done at outside hospital this past year comes in with urosepsis white count of 20,000 CAT scan that demonstrates inflammation along the left ureter consistent with infection they also did not rule out possible malignancy underlying. So today again taken to surgery and place a Patricio and right attempted place a stent on the left side Patient was taken back to the operating room after induction of anesthesia he was placed supine on the table when inside the bladder with a 21 [place] rigid cystourethroscope the entire length of the urethra was clear the prostate is extremely large still had a significant amount of blockage in the side the channel once I got inside the bladder very large prostate almost impossible to find ureteral orifices heavily trabeculated bladder I searched around for quite some time was not able to identify the left or the right ureteral orifices attempted several times a plastic pass a wire into areas that looked like the ureteral orifices were completely unsuccessful. Therefore the point I decided to abort placement of the left ureteral stent and at least will place a Patricio catheter for the left the guidewire in place and over the wire went with a tlingit & haida tip catheter and put a catheter into the bladder that help drain bladder and facilitate drainage of his infection patient's anesthetic was reversed taken back to the PACU in good condition hopefully with drainage of the infection and a catheter this will improve his infection I was not able to place a stent in the left side if the stent becomes necessary we may consider percutaneous access by radiology but for now we will discontinue with a Patricio catheter and see if this will provide enough drainage. Surgeon: Chucky Mckoy Type of Anesthesia: IV Sedation Drains: 18 fr tlingit & haida tip patricio Admit VTE Documentation VTE Present on Admission: No VTE Mechan Device Prophylaxis: SCD's VTE Pharm Prophylaxis ordered?: No
--- NOTE | 2024-07-10 12:41 | POSTOPAN2_ITS ---
Anesthesia Postop Eval I Sum Anesthesia Postop Eval I Summary Anesthesia Postop Eval I Summary: Anesthesia Postop Eval I: Assessment Summary Airway patent Spontaneous unlabored respirations Mental status nausea Vomiting Anesthesia Postop Eval I: Fluid Summary Crystalloid volume administer (ml) Colloids volume administered ( ml) Blood Product volume administered (ml) Total IV fluid infused Anesthesia Postop Eval I: Summary Notes Anesthesia Complication Anesthesia Complication Comment: Post-operative progress note Anesthesia: Postop Eval II Evaluation Mental status: Awake and Calm Pain Level: 0 nausea: No Vomiting: No
--- NOTE | 2024-07-10 12:43 | POSTOPAN2_ITS ---
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
[2024-07-10] MEDS: Pregabalin 75 MG Capsule PO (22:39)
[2024-07-10] MEDS: Heparin Injection (Vial) 5,000 UNIT/ML VIAL 5000 UNIT SC (22:39)
[2024-07-10] MEDS: Atorvastatin Calcium 40 MG Tablet PO (22:40)
[2024-07-10] MEDS: Insulin Glargine-YFGN 100 UNIT/ML Pen 18 UNIT SC (22:42)
[2024-07-10] MEDS: Morphine 2 MG/ML Syringe IV (22:53)
[2024-07-10 23:43] LABS: Bedside Glucose 191 mg/dL (74-106)
[2024-07-11] MEDS: 0.9% Normal Saline (1000mL) 1,000 ML 100 ML IV (02:20)
[2024-07-11 03:00] VITALS: BP 120/71; PULSE 83; RESP 16; TEMP 36.7; O2SAT 95
[2024-07-11 06:20] LABS: Absolute Lymphocyte Count 1.11 X10^3/uL (0.83-4.51); Absolute Neutrophil Count 17.5 X10^3/uL (2.0-7.7); Basophil# 0.09 X10^3/uL; Basophil% 0.4 % (0-1); Eosinophil# 0.46 X10^3/uL; Hematocrit 37.5 % (40-54); Hemoglobin 11.7 g/dL (13.0-16.5); Lymphocyte # 1.11 X10^3/ul (0.83-4.51); Lymphocyte % 4.9 % (19-41); Mean Corp Hgb Conc 31.2 g/dL (32-36); Mean Corpuscular Hgb 25.7 pg (27.0-32.0); Mean Corpuscular Volume 82.2 fL (80-94); Mean Platelet Vol. 12.1 fl (6.2-12.0); Monocyte# 3.26 X10^3/uL; Monocyte% 14.4 % (0-10); NRBC Flagged by Analyzer 0 % (0-5); Neutrophil # 17.45 X10^3/uL (2.7-7.7); Neutrophil % 77.2 % (47-70); POSITIVE DIFFERENTIAL YES; Platelet Count 194 K/mm3 (150-450); RBC Distribution Width CV 17.5 % (11.6-14.6); RBC Distribution Width SD 52.3 fl (35.1-43.9); Red Blood Count 4.56 M/mm3 (4.6-6.2); White Blood Count 22.6 K/mm3 (4.4-11.0)
[2024-07-11 06:28] LABS: Differential Indicated SCAN CRITERIA MET
[2024-07-11] MEDS: Heparin Injection (Vial) 5,000 UNIT/ML VIAL 5000 UNIT SC ×3 (06:43→21:51)
[2024-07-11 06:50] LABS: Anion Gap 6 (5-15); BUN 40 mg/dL (7-18); BUN/Creat Ratio 19.6 RATIO (10-20); Calcium,Total 8.1 mg/dL (8.5-10.1); Chloride 112 mmol/L (98-107); Creatinine, Serum 2.04 mg/dL (0.70-1.30); EST Glomerular Filtration Rate 34 mL/min (>60); Est Glom Filt Rate - Afr Amer 41 mL/min (>60); Estimated Creatinine Clearance 34.04 ml/min; Glucose 173 mg/dL (74-106); Potassium 4.2 mmol/L (3.5-5.1); Sodium Level 138 mmol/L (136-145)
[2024-07-11 07:14] LABS: Differential Comment SCANNED
[2024-07-11 07:17] LABS: Bedside Glucose 162 mg/dL (74-106)
[2024-07-11 07:39] VITALS: BP 135/65; PULSE 87; RESP 16; TEMP 37.2; O2SAT 93
[2024-07-11] MEDS: Ferrous Gluconate 324 MG Tablet PO (07:51)
--- NOTE | 2024-07-11 08:10 | PN.HOSP_ITS ---
Reason for Visit Reason for Visit: Diagnoses Other obstructive and reflux uropathy (07/09/24) Urinary tract infection, site not specified (07/09/24) Benign prostatic hyperplasia with lower urinary tract symptoms (07/09/24) Subjective Subjective Feeling well. Objective Data Objective Data Vital Signs: Vital Signs Temp Pulse Resp BP Pulse Ox O2 Del Method O2 Flow Rate 37.2 C 87 16 135/65 H 93 CPAP 2 07/11/24 07:39 07/11/24 07:39 07/11/24 07:39 07/11/24 07:39 07/11/24 07:39 07/11/24 07:39 07/10/24 23:45 Oxygen Flow Rate (L/min) 2 Oxygen Delivery Method CPAP Weight: 102.3 kg Body Mass Index (BMI) 34.2 Intake & Output: Intake and Output for Last 24 Hours 07/09/24 07/10/24 07/11/24 23:59 23:59 23:59 Intake Total 2049 2071.67 / 2271.67 1161.67 / 1161.67 Output Total 1350 / 1650 1950 / 1950 Balance 2049 721.67 / 621.67 -788.33 / -788.33 Lab / Micro Data 07/11/24 05:31 07/11/24 05:31 Labs: Laboratory Results - last 24 hr 07/10/24 06:10: Diff Path Review May , Atypical Lymphocytes 1+, Plt Morphology Comment GIANT 07/10/24 22:42: POC Glucose 191 H 07/11/24 05:31: WBC 22.6 H, RBC 4.56 L, Hgb 11.7 L, Hct 37.5 L, MCV 82.2, MCH 25.7 L, MCHC 31.2 L, RDW Std Deviation 52.3 H, RDW Coeff of Marlene 17.5 H, Plt Count 194, MPV 12.1 H, Immature Gran % (Auto) 1.100 H, Neut % (Auto) 77.2 H, L ymph % (Auto) 4.9 L, [place] % (Auto) 14.4 H, Eos % (Auto) 2.0, Baso % (Auto) 0.4, Absolute Neuts (auto) 17.5 H, Absolute Lymphs (auto) 1.11, Nucleated RBC % 0, Differential Comment SCANNED, Diff Path Review February foll, Sodium 138, Potassium 4.2, Chloride 112 H, Carbon Dioxide 20.0 L, Anion Gap 6, BUN 40 H, Creatinine 2.04 H, Estim Creat Clear Calc 34.04, Est GFR (MDRD) Af Amer 41 L, Est GFR (MDRD) Non-Af 34 L, BUN/Creatinine Ratio 19.6, Glucose 173 H, Calcium 8.1 L 07/11/24 06:41: POC Glucose 162 H Micro: Microbiology 07/09/24 13:21 Blood Culture (Wb) - Anticubital Left Blood Culture - Preliminary 07/09/24 16:24 Urine, Clean Catch Urine Culture - Preliminary Culture exhibits no growth. 07/09/24 13:21 Mucosa - Nose SARS-CoV-2, Influenza & RSV (PCR) - Final Physical Exam Const alert and no apparent distress HEENT head/scalp atraumatic and moist oral mucous membranes Resp normal respiratory effort, no retractions, no use of accessory muscles and clear to auscultation bilaterally Cardio regular rate, regular rhythm, S1 normal heart sound and S2 normal heart sound GI normal to inspection, nondistended, normoactive bowel sounds and soft to palpation Extremity normal to inspection Assessment & Plan Assessment/Plan (1) UTI (urinary tract infection): (2) BPH with obstruction/lower urinary tract symptoms: PLAN: Plan Sepsis: * POA: SIRS 3/4 (WBC 31.1, WBC 23, Fever 38.9). Secondary to UTI. * CT of the abdomen pelvis showed mild left hydronephrosis with thick-walled mid to distal ureter concerning for infection. Markedly enlarged prostate glands. * Follow-up blood and urine cultures Difficult catheter placement * Secondary to profound BPH * Patient underwent cystoscopy on the patient had a complicated Diego placement and attempted left stent placement. Neither ureter was identified on cystoscopy and even with wire utilization, they were not able to cannulate any any ureter. * Patient will be discharged with Diego catheter and follow-up with urology as outpatient to see if it can be removed at a later point. UTI * On cefepime * Follow-up cultures JOB * Likely postobstructive. Initial creatinine was 2.73 upon admission and down to 2.04 today. Only baseline labs we have available is from 2021 where the creatinine was 1.25 at that time. * Continue to monitor * Hep-Lock IV VTE prophylaxis with heparin Disposition: Pending final culture results. Patient will be discharged with a Diego catheter. Charges/Coding Visit Charges Inpatient E&M: 51995 Subs Hosp L2
[2024-07-11] MEDS: Cefepime HCl 1 GM in 0.9% Normal Saline (50mL MB+) 50 ML IV (10:25)
[2024-07-11] MEDS: amLODIPine 10 MG Tablet PO (10:25)
[2024-07-11] MEDS: Pregabalin 75 MG Capsule PO ×2 (10:25→21:51)
--- NOTE | 2024-07-11 10:37 | CON.PCM.UR_ITS ---
HPI Consult Data Date of Consult: 07/11/24 HPI Narrative Reason for Consultation: Follow-up on Diego placement HPI Narrative: LORI LYNCH, is a 78 M who presents to the hospital with UTI and pyelonephritis took him to surgery yesterday placed a catheter was not able to place a stent anatomy was too difficult. But his white count is improving he is clinically stable organ to start him on Flomax twice a day and Proscar once a day. Prior to going home will take out the catheter for voiding trial will continue with antibiotics await cultures. [facility] Medical History Diabetes High cholesterol HTN (hypertension) Smoker Prostate enlargement Lung cancer Home Medications ?Medication ?Instructions ?Recorded ?Last Taken ?Type amlodipine 10 mg tablet 10 mg PO DAILY BP 07/10/24 07/09/24 10:00 History 10 mg aspirin 81 mg chewable tablet 81 mg PO DAILY blood thinner 07/10/24 07/09/24 08:00 History 81 mg atorvastatin 40 mg tablet 40 mg PO QPM cholesterol 07/10/24 07/09/24 22:00 History 40 mg ferrous gluconate 324 mg (38 mg 324 mg PO DAILY supplement 07/10/24 07/09/24 08:00 History iron) tablet 324 mg glipizide 10 mg tablet 10 mg PO BID diabetes 07/10/24 07/09/24 17:00 History 10 mg insulin glargine 100 unit/mL (3 18 unit subcut QPM diabetes 07/10/24 07/08/24 22:00 History mL) subcutaneous pen 18 units pregabalin 75 mg capsule (Lyrica) 75 mg PO BID pain 07/10/24 07/09/24 17:00 History 75 mg sitagliptin 25 mg tablet 25 mg PO DAILY diabetes 07/10/24 07/09/24 08:04 History 25 mg Allergy/AdvReac Type Severity Reaction Status Date / Time amoxicillin (From Augmentin) Allergy Hives Verified 03/14/22 12:27 clavulanic acid (From Allergy Hives Verified 03/14/22 12:27 Augmentin) lisinopril Allergy Other Verified 03/14/22 12:27 Family History Other Diabetes Surgical History H/O shoulder replacement Social History Smoking Status: Current every day smoker tobacco type: cigarettes Lab / Micro Data 07/11/24 05:31 07/11/24 05:31 Labs: Laboratory Results - last 24 hr 07/10/24 22:42: POC Glucose 191 H 07/11/24 05:31: WBC 22.6 H, RBC 4.56 L, Hgb 11.7 L, Hct 37.5 L, MCV 82.2, MCH 25.7 L, MCHC 31.2 L, RDW Std Deviation 52.3 H, RDW Coeff of Marlene 17.5 H, Plt Count 194, MPV 12.1 H, Immature Gran % (Auto) 1.100 H, Neut % (Auto) 77.2 H, L ymph % (Auto) 4.9 L, [place] % (Auto) 14.4 H, Eos % (Auto) 2.0, Baso % (Auto) 0.4, Absolute Neuts (auto) 17.5 H, Absolute Lymphs (auto) 1.11, Nucleated RBC % 0, Differential Comment SCANNED, Diff Path Review February, Sodium 138, Potassium 4.2, Chloride 112 H, Carbon Dioxide 20.0 L, Anion Gap 6, BUN 40 H, Creatinine 2.04 H, Estim Creat Clear Calc 34.04, Est GFR (MDRD) Af Amer 41 L, Est GFR (MDRD) Non-Af 34 L, BUN/Creatinine Ratio 19.6, Glucose 173 H, Calcium 8.1 L 07/11/24 06:41: POC Glucose 162 H Micro: Microbiology 07/09/24 13:21 Blood Culture (Wb) - Anticubital Left Blood Culture - Preliminary 07/09/24 16:24 Urine, Clean Catch Urine Culture - Preliminary Culture exhibits no growth.
[2024-07-11] MEDS: Finasteride 5 MG Tablet PO (11:25)
[2024-07-11] MEDS: Tamsulosin HCl 0.4 MG Capsule PO ×2 (11:25→21:54)
[2024-07-11 13:46] VITALS: BP 141/73; PULSE 84; RESP 16; TEMP 37.2; O2SAT 92
[2024-07-11 21:00] VITALS: BP 140/73; PULSE 85; RESP 16; TEMP 37.5; O2SAT 94
[2024-07-11] MEDS: Insulin Glargine-YFGN 100 UNIT/ML Pen 18 UNIT SC (21:49)
[2024-07-11] MEDS: Atorvastatin Calcium 40 MG Tablet PO (21:51)
[2024-07-11 23:03] LABS: Bedside Glucose 256 mg/dL (74-106)
[2024-07-12 03:00] VITALS: BP 124/68; PULSE 94; RESP 18; TEMP 36.7; O2SAT 95
[2024-07-12] MEDS: Heparin Injection (Vial) 5,000 UNIT/ML VIAL 5000 UNIT SC ×3 (05:26→21:25)
[2024-07-12 06:30] LABS: Bedside Glucose 208 mg/dL (74-106)
[2024-07-12 06:43] LABS: Absolute Neutrophil Count 10.7 X10^3/uL (2.0-7.7); Basophil# 0.05 X10^3/uL; Basophil% 0.3 % (0-1); Eosinophil# 0.53 X10^3/uL; Eosinophils% 3.4 % (0-5); Hematocrit 36.6 % (40-54); Hemoglobin 11.8 g/dL (13.0-16.5); Lymphocyte % 9.5 % (19-41); Mean Corp Hgb Conc 32.2 g/dL (32-36); Mean Corpuscular Volume 80.8 fL (80-94); Mean Platelet Vol. 11.6 fl (6.2-12.0); Monocyte# 2.85 X10^3/uL; Monocyte% 18.1 % (0-10); NRBC Flagged by Analyzer 0 % (0-5); Neutrophil # 10.73 X10^3/uL (2.7-7.7); Neutrophil % 68.1 % (47-70); POSITIVE DIFFERENTIAL YES; Platelet Count 205 K/mm3 (150-450); RBC Distribution Width CV 17.3 % (11.6-14.6); RBC Distribution Width SD 50.8 fl (35.1-43.9); Red Blood Count 4.53 M/mm3 (4.6-6.2); White Blood Count 15.8 K/mm3 (4.4-11.0)
[2024-07-12 06:50] LABS: Differential Indicated SCAN CRITERIA MET
[2024-07-12 07:16] LABS: Anion Gap 6 (5-15); BUN 41 mg/dL (7-18); BUN/Creat Ratio 20.1 RATIO (10-20); Calcium,Total 8.6 mg/dL (8.5-10.1); Chloride 108 mmol/L (98-107); Creatinine, Serum 2.04 mg/dL (0.70-1.30); EST Glomerular Filtration Rate 34 mL/min (>60); Est Glom Filt Rate - Afr Amer 41 mL/min (>60); Estimated Creatinine Clearance 34.04 ml/min; Glucose 225 mg/dL (74-106); Potassium 4.1 mmol/L (3.5-5.1); Sodium Level 134 mmol/L (136-145)
[2024-07-12 07:25] VITALS: O2SAT 91
--- NOTE | 2024-07-12 07:37 | PCM.CONS.U ---
HPI Consult Data Date of Consult: 07/12/24 HPI Narrative Reason for Consultation: Follow-up on Diego placement infection HPI Narrative: LORI LYNCH, is a 78 M who presents to the hospital with infection history of BPH with obstruction difficult Diego placement, had to taken to the surgery and do a cystoscopy and Diego placement in the OR attempted to place a stent on the left side but his prostate so large is not able to place a stent. But with decompression of his urinary system his white blood count is improved fever curve is getting better he distal had a low-grade fever yesterday white blood count is down to 15. Urine cultures pending. I also put him on Flomax twice daily and Proscar for his prostate. Urine catheter is in place and draining clear yellow urine. Will see if he goes home with a catheter or we can do a voiding trial prior to going home he is a difficult Diego placement so I may just have him go home with a catheter. [facility] Medical History Diabetes High cholesterol HTN (hypertension) Smoker Prostate enlargement Lung cancer Home Medications ?Medication ?Instructions ?Recorded ?Last Taken ?Type amlodipine 10 mg tablet 10 mg PO DAILY BP 07/10/24 07/09/24 10:00 History 10 mg aspirin 81 mg chewable tablet 81 mg PO DAILY blood thinner 07/10/24 07/09/24 08:00 History 81 mg atorvastatin 40 mg tablet 40 mg PO QPM cholesterol 07/10/24 07/09/24 22:00 History 40 mg ferrous gluconate 324 mg (38 mg 324 mg PO DAILY supplement 07/10/24 07/09/24 08:00 History iron) tablet 324 mg glipizide 10 mg tablet 10 mg PO BID diabetes 07/10/24 07/09/24 17:00 History 10 mg insulin glargine 100 unit/mL (3 18 unit subcut QPM diabetes 07/10/24 07/08/24 22:00 History mL) subcutaneous pen 18 units pregabalin 75 mg capsule (Lyrica) 75 mg PO BID pain 07/10/24 07/09/24 17:00 History 75 mg sitagliptin 25 mg tablet 25 mg PO DAILY diabetes 07/10/24 07/09/24 08:04 History 25 mg Allergy/AdvReac Type Severity Reaction Status Date / Time amoxicillin (From Augmentin) Allergy Hives Verified 03/14/22 12:27 clavulanic acid (From Allergy Hives Verified 03/14/22 12:27 Augmentin) lisinopril Allergy Other Verified 03/14/22 12:27 Family History Other Diabetes Surgical History H/O shoulder replacement Social History Smoking Status: Current every day smoker tobacco type: cigarettes Lab / Micro Data 07/12/24 06:10 07/12/24 06:10 Labs: Laboratory Results - last 24 hr 07/11/24 21:49: POC Glucose 256 H 07/12/24 06:10: WBC 15.8 H, RBC 4.53 L, Hgb 11.8 L, Hct 36.6 L, MCV 80.8, MCH 26.0 L, MCHC 32.2, RDW Std Deviation 50.8 H, RDW Coeff of Marlene 17.3 H, Plt Count 205, MPV 11.6, Immature Gran % (Auto) 0.600, Neut % (Auto) 68.1, Lymph % (Auto) 9.5 L, [place] % (Auto) 18.1 H, Eos % (Auto) 3.4, Baso % (Auto) 0.3, Absolute Neuts (auto) 10.7 H, Absolute Lymphs (auto) 1.50, Nucleated RBC % 0, Sodium 134 L, Potassium 4.1, Chloride 108 H, Carbon Dioxide 20.0 L, Anion Gap 6, BUN 41 H, Creatinine 2.04 H, Estim Creat Clear Calc 34.04, Est GFR (MDRD) Af Amer 41 L, Est GFR (MDRD) Non-Af 34 L, BUN/Creatinine Ratio 20.1 H, Glucose 225 H, Calcium 8.6 07/12/24 06:11: POC Glucose 208 H Micro: Microbiology 07/09/24 16:24 Urine, Clean Catch Urine Culture - Final Culture exhibits no growth. 07/09/24 13:21 Blood Culture (Wb) - Anticubital Left Blood Culture - Preliminary
[2024-07-12] MEDS: Tamsulosin HCl 0.4 MG Capsule PO ×2 (07:53→21:24)
[2024-07-12] MEDS: Ferrous Gluconate 324 MG Tablet PO (07:53)
[2024-07-12] MEDS: amLODIPine 10 MG Tablet PO (07:54)
[2024-07-12] MEDS: Cefepime HCl 1 GM in 0.9% Normal Saline (50mL MB+) 50 ML IV (07:58)
[2024-07-12] MEDS: Finasteride 5 MG Tablet PO (07:59)
[2024-07-12] MEDS: Pregabalin 75 MG Capsule PO ×2 (07:59→21:26)
[2024-07-12] MEDS: 0.9% Saline Lock 10 ML Syringe IV (08:01)
[2024-07-12 08:09] VITALS: PULSE 84; RESP 18; O2SAT 94
[2024-07-12 08:17] VITALS: BP 124/72; PULSE 82; RESP 18; TEMP 36.7; O2SAT 94
[2024-07-12 09:14] LABS: Pathologist Review Reviewed
[2024-07-12 09:25] LABS: Pathologist Review Reviewed
[2024-07-12 09:26] LABS: Pathologist Review Reviewed
[2024-07-12 09:30] LABS: Pathologist Review Reviewed
--- NOTE | 2024-07-12 13:02 | PN_ITS ---
Subjective Subjective Patient seen and examined. He felt well and had no active complaints. He had an uneventful night. Review of systems is otherwise negative. He has remained hemodynamically stable. Objective Data Objective Data Vital Signs: Vital Signs Temp Pulse Resp BP Pulse Ox O2 Del Method O2 Flow Rate 98.1 F 82 18 124/72 H 94 Room Air 2 07/12/24 08:17 07/12/24 08:17 07/12/24 08:17 07/12/24 08:17 07/12/24 08:17 07/12/24 08:17 07/10/24 23:45 Oxygen Flow Rate (L/min) 2 Oxygen Delivery Method Room Air Weight: 225 lb 8.526 oz Body Mass Index (BMI) 34.2 Intake & Output: Intake and Output for Last 24 Hours 07/10/24 07/11/24 07/12/24 23:59 23:59 23:59 Intake Total 2071.67 / 2271.67 2031.67 / 2031.67 50 / 50 Output Total 1350 / 1650 3200 / 3200 1050 / 1050 Balance 721.67 / 621.67 -1168.33 / -1168.33 -1000 / -1000 Lab / Micro Data 07/12/24 06:10 07/12/24 06:10 Labs: Laboratory Results - last 24 hr 07/09/24 13:00: Diff Path Review Reviewed 07/10/24 06:10: Diff Path Review Reviewed 07/11/24 05:31: Diff Path Review Reviewed 07/11/24 21:49: POC Glucose 256 H 07/12/24 06:10: WBC 15.8 H, RBC 4.53 L, Hgb 11.8 L, Hct 36.6 L, MCV 80.8, MCH 26.0 L, MCHC 32.2, RDW Std Deviation 50.8 H, RDW Coeff of Marlene 17.3 H, Plt Count 205, MPV 11.6, Immature Gran % (Auto) 0.600, Neut % (Auto) 68.1, Lymph % (Auto) 9.5 L, [place] % (Auto) 18.1 H, Eos % (Auto) 3.4, Baso % (Auto) 0.3, Absolute Neuts (auto) 10.7 H, Absolute Lymphs (auto) 1.50, Nucleated RBC % 0, Differential Comment COMMENT, Diff Path Review Reviewed, Sodium 134 L, Potassium 4.1, C hloride 108 H, Carbon Dioxide 20.0 L, Anion Gap 6, BUN 41 H, Creatinine 2.04 H, Estim Creat Clear Calc 34.04, Est GFR (MDRD) Af Amer 41 L, Est GFR (MDRD) Non-Af 34 L, BUN/Creatinine Ratio 20.1 H, Glucose 225 H, Calcium 8.6 07/12/24 06:11: POC Glucose 208 H Micro: Microbiology 07/09/24 13:21 Blood Culture (Wb) - Anticubital Left Blood Culture - Preliminary 07/09/24 16:24 Urine, Clean Catch Urine Culture - Final Culture exhibits no growth. 07/09/24 13:21 Mucosa - Nose SARS-CoV-2, Influenza & RSV (PCR) - Final Physical Exam Const alert, oriented x3 and no apparent distress General Appearance: cooperative and well developed HEENT normocephalic, head/scalp atraumatic and moist oral mucous membranes Eyes PERRL and EOMs intact bilaterally Neck no lymphadenopathy and supple Lymph Lymphatic: no lymphadenopathy noted and no lymphedema noted Resp normal respiratory effort, normal air movement and clear to auscultation bilaterally Cardio regular rate, regular rhythm, S1 normal heart sound and S2 normal heart sound GI normal to inspection, nondistended, normoactive bowel sounds, soft to palpation, non-tender and non-distended Extremity normal capillary refill, no clubbing, cyanosis or edema and no calf tenderness General Extremity: no tenderness to palpation of joints or extremities Skin General Skin Exam: no breakdown Neuro CN's II-XII intact bilaterally, no focal motor deficits, no sensory deficits noted and deep tendon reflexes 2+ bilaterally Motor Exam: strength 5/5 throughout and general weakness Psych thought process normal, cooperative and affect normal Appearance: appropriate Assessment & Plan Assessment/Plan (1) UTI (urinary tract infection): (2) BPH with obstruction/lower urinary tract symptoms: PLAN: Plan #Sepsis due to UTI * Sepsis is likely resolved. WBC still elevated at 15. WBC was 31 on admission. * Urine cultures negative and blood cultures also negative so far. CT of the abdomen and pelvis showed mild left hydronephrosis with thick-walled mid to distal ureter concerning for infection. * Continue IV cefepime in light of elevated WBC. #BPH * Had difficult catheter insertion on admission. He had had cystoscopy on the and had a complicated Diego and attempted left stent insertion. * To be discharged with Diego catheter in situ. Urology on board. He is follow-up with urology on outpatient basis. #JOB: * Creatinine was initially 2.73 on admission and is trending downwards. * Continue gentle hydration with IV fluids. * Likely due to obstruction from BPH * Cr today is 2.04 * #Hypertension: On amlodipine #Type 2 diabetes mellitus: * On Lantus 18 units nightly. * Also on glipizide. Insulin sliding scale. * Accuhecks ACHS. Also on sitagliptin. * DVT prophylaxis: heparin Disposition: for likely dc tomorrow if wbc continues to trend downwards Charges/Coding Visit Charges Inpatient E&M: 83240 Subs Hosp L2
--- NOTE | 2024-07-12 15:39 | NURSING ---
Pt asking since this morning around 8am when he was going home because the Doctor told me I could go home today. This RN explained that there was no order yet. Pt asked several more times throughout the day and told him the same thing, that there was no order. Pt stated The doctor didnt even see me yet today. This RN explained that Dr. Mckoy had already been in but pt swears that it wasn't in to see him. This RN paged Dr. Mckoy x2 and was able to get him to call back on the second try. Dr. Mckoy wants pt to go home with a patricio but since he was not the admitting Doctor, he will not put the discharge order in but agrees from his stand point that pt can go home. This RN texted Dr. Chavez to inform her.
[2024-07-12 15:58] VITALS: BP 120/72; PULSE 92; RESP 16; TEMP 36.8; O2SAT 93
--- NOTE | 2024-07-12 16:21 | NURSING ---
Dr. Chavez just spoke with this RN and informed me that she is not discharging the patient because his WBC is 15.8 today.
[2024-07-12 21:00] VITALS: BP 120/55; PULSE 71; RESP 18; TEMP 37.1; O2SAT 94
[2024-07-12] MEDS: Insulin Glargine-YFGN 100 UNIT/ML Pen 18 UNIT SC (21:24)
[2024-07-12] MEDS: Atorvastatin Calcium 40 MG Tablet PO (21:26)
[2024-07-12 22:54] LABS: Bedside Glucose 325 mg/dL (74-106)
[2024-07-13 03:00] VITALS: BP 130/71; PULSE 81; RESP 18; TEMP 36.9; O2SAT 94
[2024-07-13] MEDS: Heparin Injection (Vial) 5,000 UNIT/ML VIAL 5000 UNIT SC (05:45)
[2024-07-13 07:56] VITALS: BP 147/72; PULSE 94; RESP 18; TEMP 37.1; O2SAT 98
[2024-07-13] MEDS: Ferrous Gluconate 324 MG Tablet PO (07:58)
[2024-07-13 08:19] LABS: Absolute Lymphocyte Count 1.13 X10^3/uL (0.83-4.51); Absolute Neutrophil Count 10.4 X10^3/uL (2.0-7.7); Basophil# 0.05 X10^3/uL; Basophil% 0.3 % (0-1); Eosinophil# 0.46 X10^3/uL; Eosinophils% 3.1 % (0-5); Hematocrit 37.6 % (40-54); Lymphocyte # 1.13 X10^3/ul (0.83-4.51); Lymphocyte % 7.5 % (19-41); Mean Corp Hgb Conc 31.9 g/dL (32-36); Mean Corpuscular Hgb 25.5 pg (27.0-32.0); Mean Corpuscular Volume 79.8 fL (80-94); Monocyte# 2.89 X10^3/uL; Monocyte% 19.2 % (0-10); NRBC Flagged by Analyzer 0 % (0-5); Neutrophil # 10.39 X10^3/uL (2.7-7.7); POSITIVE DIFFERENTIAL YES; Platelet Count 216 K/mm3 (150-450); RBC Distribution Width CV 17.1 % (11.6-14.6); RBC Distribution Width SD 49.6 fl (35.1-43.9); Red Blood Count 4.71 M/mm3 (4.6-6.2); White Blood Count 15.1 K/mm3 (4.4-11.0)
[2024-07-13 08:24] LABS: Differential Indicated SCAN CRITERIA MET
[2024-07-13 08:36] LABS: Anion Gap 9 (5-15); BUN 40 mg/dL (7-18); BUN/Creat Ratio 21.1 RATIO (10-20); Chloride 107 mmol/L (98-107); EST Glomerular Filtration Rate 36 mL/min (>60); Est Glom Filt Rate - Afr Amer 44 mL/min (>60); Estimated Creatinine Clearance 36.55 ml/min; Glucose 237 mg/dL (74-106); Sodium Level 134 mmol/L (136-145)
[2024-07-13 08:38] VITALS: BP 128/67; PULSE 75; RESP 17; TEMP 36.6; O2SAT 92
[2024-07-13] MEDS: Cefepime HCl 1 GM in 0.9% Normal Saline (50mL MB+) 50 ML IV (09:41)
[2024-07-13] MEDS: amLODIPine 10 MG Tablet PO (09:45)
[2024-07-13] MEDS: Pregabalin 75 MG Capsule PO (09:45)
[2024-07-13] MEDS: Tamsulosin HCl 0.4 MG Capsule PO (09:45)
[2024-07-13] MEDS: Finasteride 5 MG Tablet PO (09:45)
--- NOTE | 2024-07-13 10:38 | DCINST_ITS ---
Discharge Instructions Diet Discharge Diet: Low fat / Low cholesterol Activity Discharge Activity: Return to Normal Activity Weight Bearing Status: Weight bearing as tolerated Dressing / Incision Call your doctor if you observe: Fever of 101 or Higher, Shortness of breath, Dizziness, Swelling in the ankles and Chest pain Follow Up Care Test Results: Test results from this visit will be discussed in further detail at your follow- up appointment, if applicable. Discharge Plan Admission Admit Date/Time: 07/09/24 17:15 Primary Reason for Your Visit: UTI, BPH Attending Provider: Apple Chavez Primary Care Provider: [facility],[place] Consulting Providers: Chucky Mckoy; Olman Mcclellan; William Burciaga Instructions Patient Instructions: ED Bladder Infection, Male (Adult) Additional Instructions / Restrictions: to be discharged with patricio catheter in situ Discharge Orders/Prescriptions Prescriptions: New tamsulosin 0.4 mg Capsule 0.4 mg PO BID Qty: 60 2RF finasteride 5 mg Tablet 5 mg PO DAILY Qty: 30 1RF cefdinir 300 mg capsule 300 mg PO BID Qty: 10 0RF Continued insulin glargine 100 unit/mL (3 mL) insulin pen 18 unit subcut QPM aspirin 81 mg tablet,chewable 81 mg PO DAILY ferrous gluconate 324 mg (38 mg iron) tablet 324 mg PO DAILY atorvastatin 40 mg tablet 40 mg PO QPM pregabalin [Lyrica] 75 mg capsule 75 mg PO BID sitagliptin 25 mg tablet 25 mg PO DAILY amlodipine 10 mg tablet 10 mg PO DAILY glipizide 10 mg tablet 10 mg PO BID Referrals / Follow Up: Chucky Mckoy MD [Med Staff - Active Staff] - Within 2 Weeks [facility],[place] [Primary Care Provider] - Within 1 Week Disposition Disposition (needs filled in before D/C Order can be placed): Home, Self Care
--- NOTE | 2024-07-13 10:40 | DS.PCM_ITS ---
Providers Date of Admission: 07/09/24 Date of Discharge: 07/13/24 Primary Care Physician: [facility] Consultations 07/09/24 22:15 Consult: Urology Routine Consulting Provider: Chucky Mckoy Reason for Consult: BPH patricio placement EMERGENT Consult: No MD Notified: Yes Date Notified: 07/09/24 Time Notified: 18:24 Method of Notification: Verbal Reason For Visit: UTI Diagnosis Discharge Diagnosis (1) UTI (urinary tract infection): Status: Acute Code(s): N39.0 - Urinary tract infection, site not specified (2) BPH with obstruction/lower urinary tract symptoms: Status: Acute Code(s): N40.1 - Benign prostatic hyperplasia with lower urinary tract symptoms; N13.8 - Other obstructive and reflux uropathy Plan #Sepsis due to UTI * Sepsis is likely resolved. WBC still elevated at 15. WBC was 31 on admission. * Urine cultures negative and blood cultures also negative so far. CT of the abdomen and pelvis showed mild left hydronephrosis with thick-walled mid to distal ureter concerning for infection. * Continue IV cefepime in light of elevated WBC. #BPH * Had difficult catheter insertion on admission. He had had cystoscopy on the and had a complicated Patricio and attempted left stent insertion. * To be discharged with Patricio catheter in situ. Urology on board. He is follow-up with urology on outpatient basis. #JOB: * Creatinine was initially 2.73 on admission and is trending downwards. * Continue gentle hydration with IV fluids. * Likely due to obstruction from BPH * Cr today is 2.04 * #Hypertension: On amlodipine #Type 2 diabetes mellitus: * On Lantus 18 units nightly. * Also on glipizide. Insulin sliding scale. * Accuhecks ACHS. Also on sitagliptin. * DVT prophylaxis: heparin Disposition: for likely dc tomorrow if wbc continues to trend downwards Medications at Discharge Home Medications amlodipine 10 mg tablet 10 mg PO DAILY BP 07/10/24 aspirin 81 mg chewable tablet 81 mg PO DAILY blood thinner 07/10/24 atorvastatin 40 mg tablet 40 mg PO QPM cholesterol 07/10/24 ferrous gluconate 324 mg (38 mg iron) tablet 324 mg PO DAILY supplement 07/10/24 glipizide 10 mg tablet 10 mg PO BID diabetes 07/10/24 insulin glargine 100 unit/mL (3 mL) subcutaneous pen 18 unit subcut QPM diabetes 07/10/24 pregabalin 75 mg capsule (Lyrica) 75 mg PO BID pain 07/10/24 sitagliptin 25 mg tablet 25 mg PO DAILY diabetes 07/10/24 cefdinir 300 mg capsule 300 mg PO BID #10 caps 07/13/24 finasteride 5 mg tablet 5 mg PO DAILY #30 tabs 07/13/24 tamsulosin 0.4 mg capsule 0.4 mg PO BID #60 caps 07/13/24 Hospital Course Operations None Procedures None Summary of Care Provided Minutes Spent on Discharge: 55 Hospital Course: Patient is a 78-year-old male with a past medical history as outlined was admitted through the ED on 07/09/2024 with a complaint of generalized feeling of unwellness. His symptoms had worsened over the last 2 to 3 days prior to admission though he had been going on for about a week. He did have a history of recurrent UTI. On admission WBC per labs done was 30.5. Bladder scan showed 450 cc of urine in the bladder. His nurse attempted to place a Patricio catheter but due to a significantly enlarged prostate, urology was consulted. CT of the brain showed no acute intracranial pathology and CTA of the head and neck showed no evidence of hemodynamically significant stenosis. CT of the head and neck done did show an incidental finding of a 6 mm nodule in the lateral subpleural region of the right upper lobe he was follow-up with his PCP for repeat imaging as needed for surveillance. He had a Patricio catheter inserted by urology. As stated he was managed for sepsis due to UTI. He was placed on IV cefepime. Urine cultures and blood cultures were negative. CT of the abdomen and pelvis showed mild left hydronephrosis with thick-walled mid to distal ureter concerning for infection. Patient also had JOB on admission but this appeared to be more of an JOB on CKD stage III. His creatinine was 2.73 on admission but gradually trended downwards. Creatinine was down to 1.9 at time of discharge. He remained stable and was discharged home on 07/13/2024. His WBC trending out 15 at time of discharge. He felt very well and had no complaints. He was discharged home on 07/13/2024 with a Patricio catheter in situ. He was given a referral to urology for management of the Patricio catheter. He was also discharged with a prescription for p.o. cefdinir 300 mg twice daily for 5 days. He was also given a prescription for p.o. tamsulosin 0.4 mg twice daily and p.o. finasteride 5 mg daily. He is also to follow-up with his primary care doctor within 1 to 2 weeks. Patient seen and examined prior to discharge. He felt well and had no complaints. He was eager to be discharged home. Review of systems otherwise negative. Labs and vitals reviewed. Home medication reviewed and reconciled. Physical Exam Const alert, oriented x3 and no apparent distress General Appearance: cooperative, comfortable, well kempt and well developed Orientation / Consciousness: awake HEENT normocephalic, head/scalp atraumatic, hearing grossly normal bilaterally and moist oral mucous membranes Mouth: oral and palatal mucosa normal Eyes PERRL and EOMs intact bilaterally Neck no lymphadenopathy and supple Lymph Lymphatic: no lymphadenopathy noted and no lymphedema noted Resp normal respiratory effort, normal air movement, no retractions, no use of accessory muscles and clear to auscultation bilaterally Cardio regular rate, regular rhythm, S1 normal heart sound and S2 normal heart sound GI normal to inspection, nondistended, normoactive bowel sounds, soft to palpation, non-tender and non-distended Extremity normal to inspection, full ROM, normal capillary refill, no clubbing, cyanosis or edema and no calf tenderness General Extremity: no tenderness to palpation of joints or extremities Skin no rashes or lesions noted General Skin Exam: no breakdown Neuro oriented x3, CN's II-XII intact bilaterally, moves all extremities, no focal motor deficits, no sensory deficits noted and deep tendon reflexes 2+ bilaterally Sensorium / Orientation: awake and alert Motor Exam: strength 5/5 throughout and general weakness Psych thought process normal, cooperative and affect normal Appearance: appropriate Weight / BMI Weight Weight: 225 lb 8.526 oz Body Mass Index (BMI) 34.2 ABG / Lab / Microbiology Data 07/13/24 07:35 07/13/24 07:35 Laboratory: Laboratory Results - last 24 hr 07/12/24 21:23: POC Glucose 325 H 07/13/24 07:35: WBC 15.1 H, RBC 4.71, Hgb 12.0 L, Hct 37.6 L, MCV 79.8 L, MCH 25.5 L, MCHC 31.9 L, RDW Std Deviation 49.6 H, RDW Coeff of Marlene 17.1 H, Plt Count 216, MPV 12.0, Immature Gran % (Auto) 0.900, Neut % (Auto) 69.0, Lymph % (Auto) 7.5 L, [place] % (Auto) 19.2 H, Eos % (Auto) 3.1, Baso % (Auto) 0.3, A bsolute Neuts (auto) 10.4 H, Absolute Lymphs (auto) 1.13, Nucleated RBC % 0, S odium 134 L, Potassium 4.0, Chloride 107, Carbon Dioxide 18.0 L, Anion Gap 9, B UN 40 H, Creatinine 1.90 H, Estim Creat Clear Calc 36.55, Est GFR (MDRD) Af Amer 44 L, Est GFR (MDRD) Non-Af 36 L, BUN/Creatinine Ratio 21.1 H, Glucose 237 H, Calcium 9.0 Microbiology: Microbiology 07/09/24 13:21 Blood Culture (Wb) - Anticubital Left Blood Culture - Preliminary 07/09/24 16:24 Urine, Clean Catch Urine Culture - Final Culture exhibits no growth. 07/09/24 13:21 Mucosa - Nose SARS-CoV-2, Influenza & RSV (PCR) - Final D/C Instructions Discharge Diet: Low fat / Low cholesterol Discharge Activity: Return to Normal Activity Weight Bearing Status: Weight bearing as tolerated Call your doctor if you observe: Fever of 101 or Higher, Shortness of breath, Dizziness, Swelling in the ankles and Chest pain Meaningful Use Info Meaningful Use Meaningful Use Diagnoses (Choose all that apply): None applicable Ischemic Stroke Statin Dosing Therapy Reference: STATIN DOSE THERAPY REFERENCE: * Patients > 75 years receive moderate or high dose statin therapy. * Patients 75 years or YOUNGER should receive HIGH intensity statin dose unless contraindicated. You will be required to document reason for non-treatment if statin daily dose does not meet guidelines. HIGH DOSE STATIN THERAPY DAILY Atorvastatin > than or = to 40 mg Rosuvastatin > than or = to 20 mg Amlodipine + Atorvastatin > than or = to 2.5/40 mg Ezetimibe + Simvastatin 10/80 mg Simvastatin 80mg Discharge Plan Admission Admit Date/Time: 07/09/24 17:15 Primary Reason for Your Visit: UTI, BPH Attending Provider: Apple Chavez Primary Care Provider: [facility] Consulting Providers: Chucky Mckoy; Olman Mcclellan; William Burciaga Instructions Patient Instructions: ED Bladder Infection, Male (Adult) Additional Instructions / Restrictions: to be discharged with patricio catheter in situ Discharge Orders/Prescriptions Prescriptions: New tamsulosin 0.4 mg Capsule 0.4 mg PO BID Qty: 60 2RF finasteride 5 mg Tablet 5 mg PO DAILY Qty: 30 1RF cefdinir 300 mg capsule 300 mg PO BID Qty: 10 0RF Continued insulin glargine 100 unit/mL (3 mL) insulin pen 18 unit subcut QPM aspirin 81 mg tablet,chewable 81 mg PO DAILY ferrous gluconate 324 mg (38 mg iron) tablet 324 mg PO DAILY atorvastatin 40 mg tablet 40 mg PO QPM pregabalin [Lyrica] 75 mg capsule 75 mg PO BID sitagliptin 25 mg tablet 25 mg PO DAILY amlodipine 10 mg tablet 10 mg PO DAILY glipizide 10 mg tablet 10 mg PO BID Referrals / Follow Up: Chucky Mckoy MD [Med Staff - Active Staff] - Within 2 Weeks [facility] [Primary Care Provider] - Within 1 Week Disposition Disposition (needs filled in before D/C Order can be placed): Home, Self Care Charges/Coding Visit Charges Inpatient E&M: 91189 Disch Hosp >30min
--- NOTE | 2024-07-13 10:57 | CASEMGMT ---
LIONEL CM into pt room, pt sitting up in chair. Pt states he has had a patricio before at home and is comfortable with the care of it. Pt states he has a cane at home but does not use often. Pt denies any homegoing needs.
--- NOTE | 2024-07-13 11:04 | PHA.DC_ITS ---
Pharmacy [facility] has performed discharge medication reconciliation and counseling for this patient. The patient's discharge medication list was reviewed for discrepancies and discrepancies were resolved. The patient was counseled on the following discharge medications and changes in medications for homegoing were reviewed. The Reason for Use, instructions for use, and potential side effects were reviewed for all new medications. The patient's questions regarding all of their medications were answered. 1. Cefdinir 300 mg PO BID x 5 days 2. Tamsulosin 0.4 mg PO BID 3. Finasteride 5 mg PO daily The patient was able to verbally demonstrate an understanding of their discharge medications. Medications at Discharge Home Medications amlodipine 10 mg tablet 10 mg PO DAILY BP 07/10/24 aspirin 81 mg chewable tablet 81 mg PO DAILY blood thinner 07/10/24 atorvastatin 40 mg tablet 40 mg PO QPM cholesterol 07/10/24 ferrous gluconate 324 mg (38 mg iron) tablet 324 mg PO DAILY supplement 07/10/24 glipizide 10 mg tablet 10 mg PO BID diabetes 07/10/24 insulin glargine 100 unit/mL (3 mL) subcutaneous pen 18 unit subcut QPM diabetes 07/10/24 pregabalin 75 mg capsule (Lyrica) 75 mg PO BID pain 07/10/24 sitagliptin 25 mg tablet 25 mg PO DAILY diabetes 07/10/24 cefdinir 300 mg capsule 300 mg PO BID #10 caps 07/13/24 finasteride 5 mg tablet 5 mg PO DAILY #30 tabs 07/13/24 tamsulosin 0.4 mg capsule 0.4 mg PO BID #60 caps 07/13/24
[2024-07-15 13:04] LABS: Pathologist Review Reviewed
== END 2024-07-13 12:30 | disposition home or self-care (01) | DRG 872 ==
LOC: ED 13:01 → MS3 17:38
PROVIDERS: Emergency Medicine; Urology; Admitting Provider Family Medicine; Emergency Provider Emergency Medicine; Visit Provider Student in an Organized Health Care Education/Training Program
PROC: 0T7D8ZZ Dilation of Urethra, Via Natural or Artificial Opening Endoscopic (ICD-10-PCS; principal; 2024-07-10 11:30)
DX: A41.9 Sepsis, unspecified organism (principal); N17.9 Acute kidney failure, unspecified; N13.8 Other obstructive and reflux uropathy; N13.6 Pyonephrosis; N10 Acute pyelonephritis; E11.9 Type 2 diabetes mellitus without complications; I10 Essential (primary) hypertension; I65.23 Occlusion and stenosis of bilateral carotid arteries; R65.20 Severe sepsis without septic shock; F17.210 Nicotine dependence, cigarettes, uncomplicated; E78.00 Pure hypercholesterolemia, unspecified; Z79.4 Long term (current) use of insulin; T83.091A Other mechanical complication of indwelling urethral catheter, initial encounter; Z79.82 Long term (current) use of aspirin; N40.1 Benign prostatic hyperplasia with lower urinary tract symptoms; Z85.118 Personal history of other malignant neoplasm of bronchus and lung
CPT/HCPCS: 36415; 70496; 70498; 71045; 74176; 76000; 76770; 80048; 80076; 81001; 82962; 83605; 84484; 85025; 85610; 85730; 87040; 87086; 87631; 93005; 99285; J7030; Q9967; A4216; C1769

== ENCOUNTER → 2024-07-30 | Outpatient (CLI) | payer OTHER, SELFPAY ==
--- NOTE | 2024-07-30 15:45 | CT_ITS ---
STUDY: CT Chest W/O Contrast Injection 08/01/2024 7:04 PM REASON FOR EXAM: Male, 78 years old. Malignant neoplasm of upper lobe, right bronchus or lung Individualized dose optimization techniques were used for this CT. TECHNIQUE: Transaxial imaging was performed without contrast material. COMPARISON: PET 3.26.24 FINDINGS: There are degenerative changes of the shoulders. There is no pneumothorax. There is no demonstrated pleural abnormality. Acute anterior right second rib fracture. Right upper lobe mass is ovoid and measures 46 x 14 mm. This extends to the pleural surface and to the level of the second rib. Pathologic fracture cannot be excluded. 5 mm spiculated left upper lobe nodule. Multiple new spiculated densities in the right upper lobe measuring 3 mm. There are calcifications of the coronary arteries. Normal mediastinum. Normal hilar regions. Normal pulmonary arteries. There is atherosclerotic calcification of the aortic arch with tortuosity and elongation of the aortic arch and descending thoracic aorta. There are multi-level degenerative changes of the thoracic spine. Stable complex bilateral renal lesions. These do not qualify for simple cysts. CT/Chest without Contrast IMPRESSION: Masslike lesion is again identified in the right upper lobe. This is concerning for neoplasm. It extends to the right upper lobe pleural surface into the second rib. There is a possible pathologic fracture of the right anterior second rib. Development of multiple apical nodules concerning for metastatic disease. Electronically Signed: Noam Hill MD at 19:10 EDT ,
== END | disposition home or self-care (01) ==
LOC: CT 15:43
DX: C34.11 Malignant neoplasm of upper lobe, right bronchus or lung (principal)
CPT/HCPCS: 71250

== ENCOUNTER → 2024-08-24 | Outpatient (CLI) | payer OTHER, SELFPAY ==
--- NOTE | 2024-08-24 09:00 | PET_ITS ---
EXAMINATION: FDG PET-CT INDICATIONS: An 79-year-old male with a history of primary lung carcinoma presenting for restaging examination. COMPARISON EXAMINATION: None available. INDEX LESION SIZE SUV INTERPRETATION NEW: Right kidney circumferential abnormality 58.7 mm 4.3 May necessitate histopathologic sampling secondary to the quantitative degree of uptake. PERSISTENT: Right lung field linear 1.8 comp to 1.7 Quantitative criteria for viable neoplasm are not fulfilled. TECHNIQUE: Following the intravenous administration of 14.3 mCi of F-18 deoxyglucose via the left upper extremity, multiplanar image acquisitions of the head, neck, chest, abdomen and pelvis to level of mid-thigh, lower extremities obtained at one hour post radiopharmaceutical administration contemporaneously interpreted with the current CT of the head, neck, chest, abdomen and pelvis to level of mid-thigh, lower extremities dated 08/24/24 via coregistration reveal: SERUM GLUCOSE LEVEL: 185 mg/dl. HEIGHT: 68 inches. WEIGHT: 220 lbs. FINDINGS: Head/Neck: There is no evidence of abnormal increased glucose metabolism in the pharyngeal mucosal space, parapharyngeal space, bilateral-lateral and anterior neck, hypopharynx and distribution of the laryngeal structures. The visualized portion of the cerebral cortical-subcortical structures demonstrate symmetric and preserved glucose metabolism. CHEST: A linear increase in radiopharmaceutical concentration is redefined in the right upper lung field, right upper lobe. The current calculated maximum standard uptake value is 1.8 compared to 1.7. Quantitative criteria for viable neoplasm are not fulfilled. Prominent radiopharmaceutical concentration is identified in the left ventricular myocardium commensurate with the [place]. Pertinent chest CT findings are as follows. Review of CT of the thorax dated 01/20/24 demonstrates no significant interval change. Abdomen/Pelvis: Newly visualized increased tracer uptake is noted in the region of the right renal unit circumferential in presentation with central photopenia. The calculated maximum standard uptake value is 4.3. The maximum axial diameter of the circumferential density is 58.7 mm. There appears to be gas within the context of the central photopenia. Normal physiologic distribution of the radiopharmaceutical is apparent in the hepatic (3.4) and splenic parenchyma, both renal units, bladder and visualized intestinal tract. Diffuse radiopharmaceutical concentration is noted in all four quadrants of the abdomen and pelvis. Pertinent abdomen and pelvis CT findings are as follows. The previously defined morphologic-anatomic changes described on the prior FDG PET-CT report dated 01/20/24, are essentially unchanged on the current examination. Skeletal: Degenerative changes are noted in the cervical, thoracic and lumbar spine. PET/PET/CT Tumor Base -Thigh Subs IMPRESSION: 1. The circumferential increase in radiopharmaceutical concentration which appears associated with the right renal unit may represent an inflammatory process (abscess formation). In view of the quantitative degree of uptake, histopathologic sampling is recommended. 2. Facilitated uptake noted in the right lung field, linear in presentation does not fulfill quantitative criteria for neoplastic transformation. 3. Overall, compared to the prior FDG PET CT study dated 01/20/24, the circumferential kinetic focus in the right upper abdomen warrants further clinical investigation. Electronic Signature Sebas Pleitez D.O. Accurate Quantification of SUVs for this report are calculated using the exclusive [employer], ([place]. Patent No. [id number] [id number] [phone] [id number] [phone] [place] patent [id number] [id number] [id number] ). Standardization and correction of the FDG SUV metric exclusively available with [employer] intellectual property, allow for vendor non-specific objective quantitative sequential FDG PET-CT comparison and otherwise unobtainable optimization of the sensitivity and specificity of the examination. [email or web address] Electronically Signed: Sebas Pleitez DO at 8:03 EDT ,
== END | disposition home or self-care (01) ==
LOC: ONC 08:40
DX: C34.31 Malignant neoplasm of lower lobe, right bronchus or lung (principal)
CPT/HCPCS: 78815; A9552

== ENCOUNTER → 2024-08-31 | Outpatient (CLI) | payer OTHER, SELFPAY ==
--- NOTE | 2024-08-31 13:52 | CT_ITS ---
We are attempting to reach an attending provider to discuss findings. An addendum with communication details will be sent when the communication is complete. STUDY: CT ABDOMEN AND PELVIS WITH AND WITHOUT CONTRAST REASON FOR EXAM: Male, 79 years old. HYDRONEPHROSIS/HEMORRHAGIC RENAL MASS/THICK WALLED URETER RADIATION DOSAGE (If Supplied By Facility): CTDIvol = ( 23.47 ) mGy, DLP = ( 4190.26 ) mGycm TECHNIQUE: Transaxial images were obtained from the dome of the diaphragm to the symphysis pubis without oral contrast. IV 100mL Isovue-300 was administered. Sagittal and coronal images were reconstructed. Individualized dose optimization techniques were used for this CT. COMPARISON: 07/09/2024 FINDINGS: The visualized lung bases are unremarkable. The visualized portions of the heart are within normal limits. Normal liver. Normal gallbladder and extrahepatic biliary system. Normal spleen. Normal pancreas. Normal bilateral adrenal glands. Multiple bilateral small renal cysts several of which are of increased attenuation (hemorrhagic or proteinaceous). Partially calcified scar in the midsection of left kidney.. A 4 cm cyst in the anterior cortex of the midsection of right kidney demonstrates a peripheral enhancing wall and contains a bubble of gas worrisome for renal abscess/infected cyst. There is mild bilateral hydronephrosis and ureteral dilatation to the bladder with stranding of the perinephric and periureteral fat worrisome for obstruction and possible superinfection. No obstructing stone. Normal visualized stomach. Normal small intestine. There are multiple colonic diverticula consistent with diverticulosis. There is non-visualization of the appendix. There is diffuse atherosclerotic calcification of the abdominal aorta, without a demonstrated aneurysm. Normal inferior vena cava. Normal retroperitoneum. Diego catheter with retention balloon within the distal prostatic urethra. Collapsed bladder with thickening of the bladder wall and stranding surrounding fat worrisome for cystitis. There is enlargement of the prostate gland. Normal abdominal wall. Mild dextroscoliosis lumbar spine with degenerative disc disease. CT/CT Abd/Pelvis W/WO Contrast IMPRESSION: Diego catheter with retention balloon within the distal prostatic urethra. Suspect cystitis and bilateral pyelonephritis as well as superinfection of a 4 cm cyst in the anterior midsection of the right kidney producing a renal abscess. Sigmoid diverticulosis without diverticulitis. Electronically Signed: Sebas Alaniz MD at 16:09 EST ,
[2024-08-31 14:21] LABS: CREATININE FINGERSTICK 2.5 mg/dL (0.70-1.30)
[2024-08-31] MEDS: 0.9% Normal Saline (500mL Bag) 500 ML IV (14:31)
[2024-08-31 14:36] VITALS: BP 124/72; PULSE 76; RESP 16; O2SAT 96; BMI 33.4
[2024-08-31 15:35] VITALS: BP 134/65; PULSE 72; RESP 16; O2SAT 95
== END | disposition home or self-care (01) ==
DX: N13.30 Unspecified hydronephrosis (principal); N28.89 Other specified disorders of kidney and ureter
CPT/HCPCS: 74178; J7040; Q9967

== ENCOUNTER 2024-09-03 13:14 | Emergency (ER) | payer OTHER, SELFPAY ==
[2024-09-03 13:14] VITALS: BP 148/54; PULSE 60; RESP 14; TEMP 36.6; O2SAT 99; BMI 34.4
[2024-09-03 13:28] VITALS: BP 126/63; PULSE 63; RESP 16; TEMP 36.6; O2SAT 97
[2024-09-03 14:20] LABS: Absolute Lymphocyte Count 2.03 X10^3/uL (0.83-4.51); Absolute Neutrophil Count 6.8 X10^3/uL (2.0-7.7); Basophil# 0.08 X10^3/uL; Basophil% 0.7 % (0-1); Eosinophil# 0.67 X10^3/uL; Hemoglobin 10.5 g/dL (13.0-16.5); Lymphocyte # 2.03 X10^3/ul (0.83-4.51); Mean Corp Hgb Conc 31.8 g/dL (32-36); Mean Corpuscular Hgb 25.2 pg (27.0-32.0); Mean Corpuscular Volume 79.3 fL (80-94); Mean Platelet Vol. 11.2 fl (6.2-12.0); Monocyte# 1.64 X10^3/uL; Monocyte% 14.6 % (0-10); NRBC Flagged by Analyzer 0 % (0-5); Neutrophil # 6.77 X10^3/uL (2.7-7.7); Neutrophil % 60.1 % (47-70); POSITIVE DIFFERENTIAL YES; Platelet Count 294 K/mm3 (150-450); Red Blood Count 4.16 M/mm3 (4.6-6.2); White Blood Count 11.3 K/mm3 (4.4-11.0)
[2024-09-03 14:26] LABS: Differential Indicated SCAN CRITERIA MET
[2024-09-03 14:41] LABS: ALB/GLOB Ratio 0.7 RATIO (0.9-2.4); AST(SGOT) 16 U/L (15-37); Alanine Aminotransfer ALT/SGPT 10 U/L (16-61); Albumin, Serum 2.8 g/dL (3.2-5.0); Alkaline Phosphatase 109 U/L (45-117); Anion Gap 6 (5-15); BUN 32 mg/dL (7-18); BUN/Creat Ratio 17.1 RATIO (10-20); Calcium,Total 8.6 mg/dL (8.5-10.1); Chloride 112 mmol/L (98-107); Creatinine, Serum 1.87 mg/dL (0.70-1.30); EST Glomerular Filtration Rate 37 mL/min (>60); Est Glom Filt Rate - Afr Amer 45 mL/min (>60); Estimated Creatinine Clearance 36.61 ml/min; Globulin 4.1 g/dL (2.2-4.2); Glucose 241 mg/dL (74-106); Potassium 4.1 mmol/L (3.5-5.1); Protein, Total 6.9 g/dL (6.4-8.2); Sodium Level 141 mmol/L (136-145)
[2024-09-03 14:45] LABS: Lactic Acid 1.2 mmol/L (0.4-1.9)
[2024-09-03 15:01] VITALS: O2SAT 96
[2024-09-03 15:14] VITALS: RESP 59; O2SAT 96
[2024-09-03 15:17] LABS: Mucous, Urine 0 SEEN /hpf (<or=2+); Squamous Epithelial Cells - UA 0 SEEN /hpf (0-5)
[2024-09-03 15:24] LABS: Color, Urine Yellow (Yellow); Glucose, Dipstick 50 mg/dl (Normal); Ketone-Dipstick Negative (Negative); Leukocyte Esterase-Dipstick 500 /ul (Negative); Nitrite-Dipstick Positive (Negative); Occult Blood-Urine 250 /ul (Negative); Protein-Dipstick 100 mg/dl (Negative); Urine Bilirubin Dipstick Negative (Negative); Urine Clarity Turbid (Clear); Urine Urobilinogen Normal (Normal)
[2024-09-03 15:33] LABS: Red Blood Cells-Urine 5-10 SEEN /hpf (0-5); White Blood Cells >100 SEEN /hpf (0-5)
[2024-09-03 15:34] LABS: Bacteria 1+ /hpf (None Seen)
[2024-09-03 15:34] LABS: International Normalized Ratio 1.1; Prothrombin Time (Protime)PT. 14.6 SECONDS (11.7-14.9)
[2024-09-03 16:09] VITALS: BP 126/63; PULSE 63; RESP 59; TEMP 36.6; O2SAT 96
[2024-09-03] MEDS: Ciprofloxacin 500 MG Tablet PO (16:14)
[2024-09-06 14:21] LABS: Pathologist Review Reviewed
== END 2024-09-03 16:16 | disposition home or self-care (01) ==
PROVIDERS: Nurse Practitioner; Emergency Provider Emergency Medicine; Visit Provider Emergency Medicine
DX: N13.2 Hydronephrosis with renal and ureteral calculous obstruction (principal); E11.9 Type 2 diabetes mellitus without complications; E78.00 Pure hypercholesterolemia, unspecified; T83.511A Infection and inflammatory reaction due to indwelling urethral catheter, initial encounter; I10 Essential (primary) hypertension; Z85.118 Personal history of other malignant neoplasm of bronchus and lung; Z79.899 Other long term (current) drug therapy; Z79.82 Long term (current) use of aspirin; Z79.84 Long term (current) use of oral hypoglycemic drugs; Z96.619 Presence of unspecified artificial shoulder joint; F17.200 Nicotine dependence, unspecified, uncomplicated; N39.0 Urinary tract infection, site not specified
CPT/HCPCS: 80053; 81001; 83605; 85025; 85610; 85730; 87040; 87077; 87086; 87088; 87186; 99284; A4216

== ENCOUNTER 2024-11-13 22:01 | Emergency (ER) | payer OTHER, SELFPAY ==
[2024-11-13 22:02] VITALS: BP 152/74; PULSE 86; RESP 16; TEMP 36.7; O2SAT 100; BMI 33.5
[2024-11-13] MEDS: Lidocaine Jelly 2% 20 ML Syringe (URO-JET) 1 APPLIC TOPICAL (23:08)
--- NOTE | 2024-11-13 23:11 | EX.ED.DYSGE1 ---
HPI History of Present Illness Chief Complaint: Diego C/O Informant: patient Narrative Narrative: Patient is a 79-year-old male with past medical history of hypertension hyperlipidemia diabetes and BPH which is led to urinary retention and need for a chronic indwelling Idego catheter. Patient states that earlier today the catheter was accidentally tugged on and he believes it dislodged slightly as he is now leaking urine around the catheter insertion site. He denies any bleeding fever or pain but with concern he needs a catheter replaced he presents for evaluation [facility] Medical History BPH with obstruction/lower urinary tract symptoms UTI (urinary tract infection) Leukocytosis Acute kidney injury Acute lactic acidosis Generalized weakness Diabetes High cholesterol HTN (hypertension) Smoker Prostate enlargement Lung cancer Home Medications ?Medication ?Instructions ?Recorded ?Last Taken ?Type amlodipine 10 mg tablet 10 mg PO DAILY BP 07/10/24 09/03/24 History aspirin 81 mg chewable tablet 81 mg PO DAILY blood thinner 07/10/24 09/03/24 History atorvastatin 40 mg tablet 40 mg PO QPM cholesterol 07/10/24 09/02/24 History glipizide 10 mg tablet 10 mg PO BID diabetes 07/10/24 09/03/24 History insulin glargine 100 unit/mL (3 16 unit subcut QPM diabetes 07/10/24 09/02/24 History mL) subcutaneous pen pregabalin 75 mg capsule (Lyrica) 75 mg PO BID pain 07/10/24 09/03/24 History sitagliptin 25 mg tablet 25 mg PO DAILY diabetes 07/10/24 09/03/24 History cefdinir 300 mg capsule 300 mg PO BID #10 caps 07/13/24 09/03/24 Rx finasteride 5 mg tablet 5 mg PO DAILY #30 tabs 07/13/24 09/03/24 Rx tamsulosin 0.4 mg capsule 0.4 mg PO BID #60 caps 07/13/24 09/03/24 Rx ciprofloxacin HCl 500 mg tablet 500 mg PO BID #14 tabs 09/03/24 Unknown Rx (Cipro) Allergy/AdvReac Type Severity Reaction Status Date / Time amoxicillin (From Augmentin) Allergy Hives Verified 09/03/24 13:14 clavulanic acid (From Allergy Hives Verified 09/03/24 13:14 Augmentin) lisinopril Allergy Other Verified 09/03/24 13:14 Family History Other Diabetes Surgical History H/O shoulder replacement Social History Smoking Status: Heavy Smoker (>10/day) ROS ROS ED Constitutional Constitutional ED: Denies chills or fever(s) ENT ENT ED: Denies sore throat Cardiovascular Cardiovascular: Denies chest pain Respiratory/Chest Respiratory/Chest: Denies cough or dyspnea Gastrointestinal Gastrointestinal: Denies abdominal pain, diarrhea, nausea or vomiting Genitourinary Genitourinary ED: Denies hematuria Musculoskeletal Musculoskeletal: Denies back pain Integumentary Denies rash Neurologic Neurologic: Denies headache(s) Hematologic/Lymphatic Hematologic/Lymphatic: Denies easy bleeding or easy bruising EXAM Physical Exam Const Vital Signs: 11/13/24 22:02 11/13/24 23:22 Temperature 98.1 F 98 F Temperature Source Temporal Pulse Rate 86 81 Respiratory Rate 16 16 Blood Pressure 152/74 H 144/77 H Blood Pressure Mean 100 99 Pulse Ox 100 99 Oxygen Delivery Method Room Air Positive well nourished and well developed General Appearance ED: well developed; Negative for pallor HEENT HEENT Narrative: Normocephalic atraumatic Eyes PERRL and EOMs intact bilaterally General Eye ED: Negative for scleral icterus Neck supple Resp normal respiratory effort and clear to auscultation bilaterally Cardio regular rate and regular rhythm GI normal to inspection, nondistended, normoactive bowel sounds, non-tender, non-distended and no masses GI Narrative: No organomegaly to suggest acute urinary retention Auscultation: normoactive bowel sounds Palpation: soft Narrative: Normal circumcised male with indwelling Diego catheter in place. No blood or discharge noted from the urethral meatus. No surrounding erythema or warmth. No secondary soft tissue skin changes to suggest Tiffani's gangrene. No testicular masses noted. Back/Spine no CVA tenderness Extremity normal to inspection Neuro oriented x3, CN's II-XII intact bilaterally and no sensory deficits noted Sensorium / Orientation: alert Motor Exam: strength 5/5 throughout Psych mental status grossly normal Skin no rashes or lesions noted General Skin Exam: Negative for jaundice or pallor MDM MDM MDM Narrative Medical decision making narrative: Patient arrived to the ER hypertensive but otherwise with stable vitals. He reported leakage of urine around the catheter insertion site after it was inadvertently tugged. He does not have blood present through the meatus to suggest urethral tear. I do feel simply slightly dislodged by the inadvertent tugging and therefore the catheter will be removed and a new one placed. As the patient is still having drainage of urine I have low concern for acute kidney injury and as he is simply here secondary to leakage without fever or abdominal pain concern for UTI is low as well and I do not feel there is need for a urine sample or blood work. The Diego catheter was replaced by nursing staff and after doing so patient had drainage of clear yellow urine and reported feeling better. Therefore this time with resolution of symptoms and low concern for infection or acute kidney injury and there is no need for further evaluation he is otherwise safe for discharge History & Record Review Discussion w/independent historian: Patient Discharge Plan Triage Chief Complaint: Diego C/O ED Provider: Rowdy Shearer Dx/Rx/DC Orders Clinical Impression: Malfunction of Diego catheter, Insulin dependent diabetes mellitus, BPH (benign prostatic hyperplasia), Hypertension Instructions: ED Diego Catheter, Care Prescriptions: No Action insulin glargine 100 unit/mL (3 mL) insulin pen 16 unit subcut QPM aspirin 81 mg tablet,chewable 81 mg PO DAILY atorvastatin 40 mg tablet 40 mg PO QPM pregabalin [Lyrica] 75 mg capsule 75 mg PO BID sitagliptin 25 mg tablet 25 mg PO DAILY amlodipine 10 mg tablet 10 mg PO DAILY glipizide 10 mg tablet 10 mg PO BID tamsulosin 0.4 mg Capsule 0.4 mg PO BID Qty: 60 2RF finasteride 5 mg Tablet 5 mg PO DAILY Qty: 30 1RF cefdinir 300 mg capsule 300 mg PO BID Qty: 10 0RF ciprofloxacin HCl [Cipro] 500 mg tablet 500 mg PO BID Qty: 14 0RF [facility] Provider[facility] - Activity Restrictions/Additional Instructions: Please follow-up with your urologist as directed for your Diego catheter care. Return to the ER should you have any further concerns Print Language: Slovenian Disposition Disposition: Home, Self Care Discharge Date/Time: 11/13/24 23:24
[2024-11-13 23:22] VITALS: BP 144/77; PULSE 81; RESP 16; TEMP 36.6; O2SAT 99
== END 2024-11-13 23:24 | disposition home or self-care (01) ==
PROVIDERS: Emergency Provider Emergency Medicine; Visit Provider Emergency Medicine
DX: T83.018A Breakdown (mechanical) of other urinary catheter, initial encounter (principal); E11.9 Type 2 diabetes mellitus without complications; Z79.4 Long term (current) use of insulin; N40.1 Benign prostatic hyperplasia with lower urinary tract symptoms; E78.00 Pure hypercholesterolemia, unspecified; R33.8 Other retention of urine; I10 Essential (primary) hypertension; Z85.118 Personal history of other malignant neoplasm of bronchus and lung; Z79.899 Other long term (current) drug therapy; Z79.84 Long term (current) use of oral hypoglycemic drugs; Z96.619 Presence of unspecified artificial shoulder joint; F17.200 Nicotine dependence, unspecified, uncomplicated
CPT/HCPCS: 99282

== ENCOUNTER 2025-01-14 11:36 | Emergency (ER) | payer OTHER, SELFPAY ==
[2025-01-14 11:38] VITALS: BP 161/58; PULSE 87; RESP 16; TEMP 36.6; O2SAT 99; BMI 33.5
--- NOTE | 2025-01-14 12:51 | EX.ED.GUMALE ---
HPI History of Present Illness Chief Complaint: Diego C/O Informant: patient Narrative Narrative: Patient states that this morning and yesterday with moving around, he is leaking urine from around his Diego catheter. The catheter is still draining urine into the bag normally and he sees no blood, clots, or any other substance other than transparent yellow urine. He denies any abdominal pain, back pain, nausea, vomiting, testicular pain, penile pain, or fever/chills. He states he has a history of urinary retention and typically gets a catheter every month or so, this 1 was placed 2 days ago and he thinks that it was a different type of catheter than he usually gets, he thinks that is why it is leaking. [facility] Medical History BPH with obstruction/lower urinary tract symptoms UTI (urinary tract infection) Leukocytosis Acute kidney injury Acute lactic acidosis Generalized weakness Diabetes High cholesterol HTN (hypertension) Smoker Prostate enlargement Lung cancer Home Medications ?Medication ?Instructions ?Recorded ?Last Taken ?Type amlodipine 10 mg tablet 10 mg PO DAILY BP 07/10/24 09/03/24 History aspirin 81 mg chewable tablet 81 mg PO DAILY blood thinner 07/10/24 09/03/24 History atorvastatin 40 mg tablet 40 mg PO QPM cholesterol 07/10/24 09/02/24 History glipizide 10 mg tablet 10 mg PO BID diabetes 07/10/24 09/03/24 History insulin glargine 100 unit/mL (3 16 unit subcut QPM diabetes 07/10/24 09/02/24 History mL) subcutaneous pen pregabalin 75 mg capsule (Lyrica) 75 mg PO BID pain 07/10/24 09/03/24 History sitagliptin 25 mg tablet 25 mg PO DAILY diabetes 07/10/24 09/03/24 History cefdinir 300 mg capsule 300 mg PO BID #10 caps 07/13/24 09/03/24 Rx finasteride 5 mg tablet 5 mg PO DAILY #30 tabs 07/13/24 09/03/24 Rx tamsulosin 0.4 mg capsule 0.4 mg PO BID #60 caps 07/13/24 09/03/24 Rx ciprofloxacin HCl 500 mg tablet 500 mg PO BID #14 tabs 09/03/24 Unknown Rx (Cipro) Allergy/AdvReac Type Severity Reaction Status Date / Time amoxicillin (From Augmentin) Allergy Hives Verified 01/14/25 14:12 clavulanic acid (From Allergy Hives Verified 01/14/25 14:12 Augmentin) lisinopril Allergy Other Verified 01/14/25 14:12 Family History Other Diabetes Surgical History H/O shoulder replacement Social History Smoking Status: Heavy Smoker (>10/day) ROS ROS ED Constitutional Constitutional ED: Denies chills or fever(s) Gastrointestinal Gastrointestinal: Denies abdominal pain, nausea or vomiting Genitourinary Genitourinary ED: Reports other Details: Urine leaking around catheter, see HPI ; Denies dysuria or hematuria Musculoskeletal Musculoskeletal: Denies back pain or neck pain Integumentary Denies rash Neurologic Neurologic: Denies headache(s), paresthesias or weakness EXAM Physical Exam Const Vital Signs: 01/14/25 11:38 01/14/25 13:37 Temperature 97.9 F Temperature Source Temporal Pulse Rate 87 83 Respiratory Rate 16 14 Blood Pressure 161/58 H 149/79 H Blood Pressure Mean 92 102 Pulse Ox 99 98 Oxygen Delivery Method Room Air Room Air Positive well nourished and well developed General Appearance ED: well developed and NAD GI non-tender and non-distended no CVA tenderness Back/Spine no CVA tenderness Neuro oriented x3, CN's II-XII intact bilaterally, no focal motor deficits and no sensory deficits noted Psych mental status grossly normal MDM MDM MDM Narrative Medical decision making narrative: I had nursing manipulate the contents of the balloon for the catheter to see if that helped, but the patient apparently told nursing that he wanted a new catheter placed so they placed 1, it is not leaking, and the patient states he is ready to leave. I do not think he needs to have a urinalysis, given the appearance of his urine and lack of any other symptoms. Discharge Plan Triage Chief Complaint: Diego C/O ED Provider: Greg Ruiz Dx/Rx/DC Orders Clinical Impression: Malfunction of Diego catheter Instructions: Indwelling Urinary Catheter Dc Prescriptions: No Action insulin glargine 100 unit/mL (3 mL) insulin pen 16 unit subcut QPM aspirin 81 mg tablet,chewable 81 mg PO DAILY atorvastatin 40 mg tablet 40 mg PO QPM pregabalin [Lyrica] 75 mg capsule 75 mg PO BID sitagliptin 25 mg tablet 25 mg PO DAILY amlodipine 10 mg tablet 10 mg PO DAILY glipizide 10 mg tablet 10 mg PO BID tamsulosin 0.4 mg Capsule 0.4 mg PO BID Qty: 60 2RF finasteride 5 mg Tablet 5 mg PO DAILY Qty: 30 1RF cefdinir 300 mg capsule 300 mg PO BID Qty: 10 0RF ciprofloxacin HCl [Cipro] 500 mg tablet 500 mg PO BID Qty: 14 0RF [facility] Provider] - 3-5 Days if not improving Print Language: Occitan Disposition Disposition: Home, Self Care
[2025-01-14 13:37] VITALS: BP 149/79; PULSE 83; RESP 14; O2SAT 98
--- NOTE | 2025-01-14 13:43 | ED.RN ---
pt complaining because he has been waiting for his cath to be changed. he does not think he should have to wait. attempted to explain that unfortunately there are multiple pt's, pt continues to say if you cant take care of me, i'll just go elsewhere.
--- NOTE | 2025-01-14 14:00 | ED.RN ---
educated pt on patricio care. pt appreciative that cath has been changed.
--- NOTE | 2025-01-14 14:41 | NURSING ---
patricio balloon replaced with 10cc ns after checking to see if any leaking from balloon. was only 9.5cc in balloon presently inflated. pt reported that normally diff brand catheter in but [facility] and this one has leaked ever since wanting to just have new on replaced here.
[2025-01-14 14:43] VITALS: BP 149/79; PULSE 83; RESP 14; TEMP 36.6; O2SAT 98
== END 2025-01-14 14:44 | disposition home or self-care (01) ==
PROVIDERS: Emergency Provider Emergency Medicine; Visit Provider Emergency Medicine
DX: T83.031A Leakage of indwelling urethral catheter, initial encounter (principal); E11.9 Type 2 diabetes mellitus without complications; E78.00 Pure hypercholesterolemia, unspecified; I10 Essential (primary) hypertension; Z85.118 Personal history of other malignant neoplasm of bronchus and lung; Z79.899 Other long term (current) drug therapy; Z79.82 Long term (current) use of aspirin; Z79.84 Long term (current) use of oral hypoglycemic drugs; Z96.619 Presence of unspecified artificial shoulder joint; F17.200 Nicotine dependence, unspecified, uncomplicated
CPT/HCPCS: 99282; A4216

== ENCOUNTER → 2025-01-21 | Outpatient (CLI) | payer OTHER, SELFPAY ==
--- NOTE | 2025-01-21 10:34 | NM_ITS ---
PROCEDURE: RENAL SCAN W/ PHARM INTERVENT 01/21/2025 REASON FOR EXAM: RADHA HYDRO POSSIBLE OBSTUCTION TECHNIQUE: Technetium-99m DTPA intravenously with planar imaging of the abdomen. Immediate bloodflow and delayed renogram images with computer-reconstructed renogram curves. mg Lasix intravenously 15 minutes after the radiopharmaceutical. RADIOPHARMACEUTICAL: 11.3 mCi of Mag 3. 10 mg of Lasix intravenously. COMPARISON: None. FINDINGS: Perfusion: Essentially equal. 51% right kidney. 49% left kidney. Time-Activity Curves Left: Time to peak: 19 minutes Right: Time to peak: 22 minutes Differential function: 38% % on the left and 62% % on the right. T-1/2: 118 minutes minutes on the left and 40 minutes minutes on the right. Excretory delay bilaterally more prominent on the left side. NM/Renal Scan w/ Pharm Intervent IMPRESSION: There is evidence of bilateral decrease in renal excretion with decreased renal function of the left kidney. No significant change seen with the injection of Lasix. Reading Location: [facility]-
== END | disposition home or self-care (01) ==
LOC: NM 10:29
PROVIDERS: Referring Provider Nurse Practitioner; Visit Provider Nurse Practitioner
DX: N13.30 Unspecified hydronephrosis (principal)
CPT/HCPCS: 78708; A9562; J1940

== ENCOUNTER 2025-01-25 11:17 | Emergency (ER) | payer OTHER, SELFPAY ==
[2025-01-25 11:19] VITALS: BP 149/72; PULSE 98; RESP 16; TEMP 37.1; O2SAT 94; BMI 33.7
--- NOTE | 2025-01-25 11:40 | EX.ED.GUMALE ---
HPI History of Present Illness Chief Complaint: Complaint Informant: patient Narrative Narrative: Patient presents with almost 1 week of chills, urinary pressure sensation in his lower abdomen, and leaking of urine around his indwelling Diego catheter that he has for urinary retention. He was changed about 3 weeks ago. He has not seen urology since then he does have a urologist. He states he always has leaking around the catheter even since we changed it, but it is worse in the past week. He had blood in his urine/catheter about a week ago but it has not recurred since. Catheter has continued to drain and the urine has not looked any different. He is concerned he may have a UTI. [facility] Medical History BPH with obstruction/lower urinary tract symptoms UTI (urinary tract infection) Leukocytosis Acute kidney injury Acute lactic acidosis Generalized weakness Diabetes High cholesterol HTN (hypertension) Smoker Prostate enlargement Lung cancer Home Medications ?Medication ?Instructions ?Recorded ?Last Taken ?Type amlodipine 10 mg tablet 10 mg PO DAILY BP 07/10/24 01/25/25 History aspirin 81 mg chewable tablet 81 mg PO DAILY blood thinner 07/10/24 01/24/25 History atorvastatin 40 mg tablet 40 mg PO QHS cholesterol 07/10/24 01/24/25 History glipizide 10 mg tablet 10 mg PO DAILY diabetes 07/10/24 01/25/25 History insulin glargine 100 unit/mL (3 14 unit subcut QHS diabetes 07/10/24 01/24/25 History mL) subcutaneous pen pregabalin 75 mg capsule (Lyrica) 75 mg PO BID pain 07/10/24 01/25/25 History sitagliptin 25 mg tablet 25 mg PO DAILY diabetes 07/10/24 01/25/25 History finasteride 5 mg tablet 5 mg PO DAILY #30 tabs 07/13/24 01/25/25 Rx ciprofloxacin HCl 500 mg tablet 500 mg PO DAILY 7 days #7 TABLETS 01/25/25 Unknown Rx ferrous gluconate 324 mg (38 mg 324 mg PO QHS 01/25/25 01/24/25 History iron) tablet Allergy/AdvReac Type Severity Reaction Status Date / Time amoxicillin (From Augmentin) Allergy Hives Verified 01/25/25 11:18 clavulanic acid (From Allergy Hives Verified 01/25/25 11:18 Augmentin) lisinopril Allergy Other Verified 01/25/25 11:18 Family History Other Diabetes Surgical History H/O shoulder replacement Social History Smoking Status: Heavy Smoker (>10/day) ROS ROS ED Constitutional Constitutional ED: Reports chills; Denies fever(s) Eyes Eyes: Denies change in vision or diplopia ENT ENT ED: Denies rhinorrhea or sore throat Cardiovascular Cardiovascular: Denies chest pain or palpitations Respiratory/Chest Respiratory/Chest: Denies cough or dyspnea Gastrointestinal Gastrointestinal: Reports abdominal pain; Denies diarrhea, nausea or vomiting Genitourinary Genitourinary ED: Reports hematuria and other Details: Worsening leaking around catheter ; Denies dysuria Musculoskeletal Musculoskeletal: Denies back pain or neck pain Integumentary Denies abscess or rash Neurologic Neurologic: Denies headache(s), paresthesias or weakness Psychiatric Psychiatric: Denies anxiety or suicidal thoughts EXAM Physical Exam Const Vital Signs: 01/25/25 11:19 01/25/25 13:18 01/25/25 15:00 Temperature 98.7 F Temperature Source Temporal Pulse Rate 98 81 76 Respiratory Rate 16 18 22 H Blood Pressure 149/72 H 137/68 H 130/69 H Blood Pressure Mean 97 91 89 Pulse Ox 94 98 95 Oxygen Delivery Method Room Air Room Air 01/25/25 16:56 Temperature Temperature Source Pulse Rate 89 Respiratory Rate 19 H Blood Pressure 148/77 H Blood Pressure Mean 100 Pulse Ox 99 Oxygen Delivery Method Room Air Positive well nourished and well developed Constitutional Narrative: Well-appearing in no distress no rigors General Appearance ED: well developed and NAD HEENT Reports moist mucous membranes normocephalic and atraumatic Eyes PERRL and EOMs intact bilaterally Neck full ROM and supple Resp normal respiratory effort and clear to auscultation bilaterally Cardio regular rate, regular rhythm and no murmurs GI non-tender and non-distended Auscultation: normoactive bowel sounds Palpation: soft no CVA tenderness Narrative: Urethral Diego catheter in place. The catheter is draining cloudy yellow nonbloody urine. There is no active draining around the catheter at this time. Testicles/scrotum nontender, no perineum tenderness/subcutaneous emphysema or other findings of Tiffani's gangrene. Back/Spine no CVA tenderness General Back: other FROM Extremity normal to inspection General Extremety ED: Negative for edema, pulses abnormal or tenderness General Extremity: Negative for edema or pulses abnormal Neuro oriented x3, CN's II-XII intact bilaterally and no sensory deficits noted Sensorium / Orientation: awake and alert Motor Exam: strength 5/5 throughout Skin no rashes or lesions noted and no wounds MDM MDM MDM Narrative Medical decision making narrative: Labs show leukocytosis although the patient often has a leukocytosis, it certainly could be acute with this, his urine which was obtained by changing his Diego does show pyuria and signs of infection, this was treated with IV Rocephin and sent for culture. He has worsening renal failure with a creatinine up to 3.33 is never had a creatinine as high before looking back at his old numbers. Therefore I sent him for a CT of the abdomen/pelvis, there is no evidence of pyelonephritis necessarily, but he had bilateral hydronephrosis with bilateral hydroureter, and a massive prostate that extends to above the pubic bone, and after discussing with Dr. Mckoy with urology, the catheter balloon appears to be within the prostate which may be why he is leaking. He advises changing it to a size larger and coud? advancing all the way and reevaluate with ultrasound. He had in in 18, we were able to obtain a 20 Ukrainian coud?, nursing advanced it all the way, patient has some discomfort with this, it is flowing nonbloody urine, and the patient states that his urinary pressure suprapubic symptoms resolved. I looked with ultrasound before the change and after the change, does look like the balloon is sitting higher in the bladder. Discussed again with Dr. Mckoy with urology. He advised that it would take a day or 2 for the hydronephrosis to resolve on imaging, so he would not recommend reimaging the patient now. I offered admission to the patient, he states he has an appointment with his urologist in 3 days and does not want to be admitted and feels a lot better and wants to go home. He is not septic although he understands he has a leukocytosis. If the new Diego catheter is placed more proximally and in the bladder appropriately, he should continue to have improvement of his renal function and he should have no more discomfort in his suprapubic area. I am putting him on Cipro after we gave him Rocephin. Dr. Mckoy agrees with all of this and the patient following up with his urologist, we discussed reasons to return to the hospital he is comfortable with that plan. Lab Data Attestation: I reviewed the patient's lab results. Labs: Laboratory Results - last 24 hr 01/25/25 01/25/25 11:55 12:01 WBC 17.8 H RBC 4.54 L Hgb 10.9 L Hct 34.0 L MCV 74.9 L MCH 24.0 L MCHC 32.1 RDW Std Deviation 51.0 H RDW Coeff of Marlene 19.1 H Plt Count 228 MPV 10.8 Immature Gran % (Auto) 0.800 Neut % (Auto) 73.0 H Lymph % (Auto) 9.4 L [place] % (Auto) 15.4 H Eos % (Auto) 1.0 Baso % (Auto) 0.4 Absolute Neuts (auto) 13.0 H Absolute Lymphs (auto) 1.67 Nucleated RBC % 0 Differential Comment SCANNED Diff Path Review May foll Sodium 137 Potassium 4.4 Chloride 106 Carbon Dioxide 17.5 L Anion Gap 14 BUN 50 H Creatinine 3.33 H Estim Creat Clear Calc 20.35 L Est GFR (MDRD) Non-Af 18 L BUN/Creatinine Ratio 14.9 Glucose 247 H Lactic Acid 1.4 Calcium 8.5 Urine Color Straw Urine Clarity Turbid Urine pH 6.0 Ur Specific Power 1.010 Urine Protein 100 H Urine Glucose (UA) 100 H Urine Ketones Negative Urine Occult Blood 250 H Urine Nitrite Negative Urine Bilirubin Negative Urine Urobilinogen Normal Ur Leukocyte Esterase 500 H Urine RBC 25-50 SEEN Urine WBC >100 SEEN Ur Squamous Epith Cells 0-5 SEEN Urine Bacteria 1+ Urine Mucus 0 SEEN Radiography Diagnostic Testing: Clinical Impression(s) from Imaging Studies Abdomen/Pelvis CT 01/25/25 14:29 IMPRESSION: Bilateral hydronephrosis and hydroureter down to the urinary bladder. Distended urinary bladder with massive enlargement of the prostate with indentation of the bladder base. I can not rule out a mass at the base of the bladder. The tip of the Diego catheter is seen within the prostatic urethra. Reading Location: [id number] Management Discussion w/another healthcare provider: [employer]ing Machine Operator (Dr. Mckoy [facility]) Discharge Plan Triage Chief Complaint: Complaint ED Provider: Greg Ruiz Dx/Rx/DC Orders Clinical Impression: Acute renal failure due to urinary obstruction, Enlarged prostate with urinary obstruction, Acute lower urinary tract infection Instructions: Urinary Tract Infections in Men, ED Urinary Retention, Male Prescriptions: New ciprofloxacin HCl 500 mg tablet 500 mg PO DAILY 7 Days Qty: 7 0RF No Action insulin glargine 100 unit/mL (3 mL) insulin pen 14 unit subcut QHS aspirin 81 mg tablet,chewable 81 mg PO DAILY Patient Comments: PT TAKES IN EVENING atorvastatin 40 mg tablet 40 mg PO QHS pregabalin [Lyrica] 75 mg capsule 75 mg PO BID sitagliptin 25 mg tablet 25 mg PO DAILY amlodipine 10 mg tablet 10 mg PO DAILY glipizide 10 mg tablet 10 mg PO DAILY finasteride 5 mg Tablet 5 mg PO DAILY Qty: 30 1RF ferrous gluconate 324 mg (38 mg iron) tablet 324 mg PO QHS [facility] - Keep Cezar appointment (with your urologist) Activity Restrictions/Additional Instructions: Your prostate is very large and your catheter was sitting in the prostate. The new catheter should be further up and that should be resolved, resulting in hopefully no more leaking around your catheter. As long as that is the case and you are still producing urine within the catheter, take the antibiotics as prescribed and follow-up with your urologist as scheduled. If anything worsens or you are leaking a lot of urine around the catheter again, return to the ER for reevaluation. Print Language: Persian Disposition Disposition: Home, Self Care
[2025-01-25 12:02] LABS: Mucous, Urine 0 SEEN /hpf (<or=2+)
[2025-01-25 12:20] LABS: Color, Urine Straw (Yellow); Glucose, Dipstick 100 mg/dl (Normal); Ketone-Dipstick Negative (Negative); Leukocyte Esterase-Dipstick 500 /ul (Negative); Nitrite-Dipstick Negative (Negative); Occult Blood-Urine 250 /ul (Negative); Protein-Dipstick 100 mg/dl (Negative); Urine Bilirubin Dipstick Negative (Negative); Urine Clarity Turbid (Clear); Urine Urobilinogen Normal (Normal)
[2025-01-25 12:25] LABS: Absolute Lymphocyte Count 1.67 X10^3/uL (0.83-4.51); Basophil# 0.07 X10^3/uL; Basophil% 0.4 % (0-1); Eosinophil# 0.18 X10^3/uL; Hemoglobin 10.9 g/dL (13.0-16.5); Lymphocyte # 1.67 X10^3/ul (0.83-4.51); Lymphocyte % 9.4 % (19-41); Mean Corp Hgb Conc 32.1 g/dL (32-36); Mean Corpuscular Volume 74.9 fL (80-94); Mean Platelet Vol. 10.8 fl (6.2-12.0); Monocyte# 2.73 X10^3/uL; Monocyte% 15.4 % (0-10); NRBC Flagged by Analyzer 0 % (0-5); Neutrophil # 12.97 X10^3/uL (2.7-7.7); POSITIVE DIFFERENTIAL YES; Platelet Count 228 K/mm3 (150-450); RBC Distribution Width CV 19.1 % (11.6-14.6); Red Blood Count 4.54 M/mm3 (4.6-6.2); White Blood Count 17.8 K/mm3 (4.4-11.0)
[2025-01-25 12:25] LABS: White Blood Cells >100 SEEN /hpf (0-5)
[2025-01-25 12:26] LABS: Differential Indicated SCAN CRITERIA MET
[2025-01-25 12:26] LABS: Red Blood Cells-Urine 25-50 SEEN /hpf (0-5)
[2025-01-25 12:27] LABS: Bacteria 1+ /hpf (None Seen)
[2025-01-25 12:29] LABS: Squamous Epithelial Cells - UA 0-5 SEEN /hpf (0-5)
[2025-01-25 12:34] LABS: Anion Gap 14 (5-15); BUN 50 mg/dL (4-19); BUN/Creat Ratio 14.9 RATIO (10-20); Calcium,Total 8.5 mg/dL (7.6-11.0); Carbon Dioxide 17.5 mmol/L (21.0-32.0); Chloride 106 mmol/L (98-108); Creatinine, Serum 3.33 mg/dL (0.70-1.20); EST Glomerular Filtration Rate 18 (>60); Estimated Creatinine Clearance 20.35 ml/min (50-250); Glucose 247 mg/dL (70-99); Lactic Acid 1.4 mmol/L (0.0-2.0); Potassium 4.4 mmol/L (3.3-5.1); Sodium Level 137 mmol/L (133-145)
[2025-01-25 12:51] LABS: Differential Comment SCANNED
[2025-01-25 13:18] VITALS: BP 137/68; PULSE 81; RESP 18; O2SAT 98
[2025-01-25] MEDS: Ceftriaxone 1 GM/50 ML BAG IV (14:10)
--- NOTE | 2025-01-25 14:29 | CT_ITS ---
PROCEDURE: ABDOMEN/PELVIS WITHOUT CONT 01/25/2025 REASON FOR EXAM: UTI, RENAL FAILURE, CHILLS Acute kidney injury. Hypertension. TECHNIQUE: Abdomen and pelvis CT without intravenous contrast. Noncontrast technique limits evaluation of the abdominal and pelvic viscera. Coronal and Sagittal reconstruction series were provided. One or more dose reduction techniques were used (e.g., Automated exposure control, adjustment of the mA and/or kV according to patient size, use of iterative reconstruction technique). PATIENT PREPARATION: Per protocol ORAL CONTRAST TYPE: None. COMPARISON: Comparison is made with prior study dated August 31, 2024. FINDINGS: Lung bases: Mild dependent atelectasis. Coronary artery calcification. Liver: Unremarkable Gallbladder: Findings suggestive of sludge or small gallstones along the dependent portion of the gallbladder lumen. Spleen: Normal size. Pancreas: Normal size. No surrounding inflammation. Adrenals: Unremarkable Kidneys: Bilateral perinephric stranding. Bilateral hydronephrosis. Bilateral hydroureter down to the ureterovesical junction. Stable bilateral renal hyperdense cysts and possible small solid nodules. Correlation with ultrasound recommended for further evaluation. Bladder: Diffuse bladder wall thickening. The bladder is empty. Marked enlargement of the prostate gland with indentation of the bladder base. A Diego catheter is seen with the balloon dilated in the prostatic urethra. Can not exclude a mass at the base of the bladder. Reproductive Organs: Bowel: Colonic diverticulosis without diverticulitis. Appendix: The appendix is not identified. There is no inflammatory process identified in the right lower quadrant to suggest appendicitis. Lymph nodes: No retroperitoneal lymphadenopathy is seen. Vasculature: Mild diffuse atherosclerotic calcifications are noted. Peritoneum / Retroperitoneum: Unremarkable Bones: Degenerative changes of the spine. CT/Abdomen/Pelvis without Cont IMPRESSION: Bilateral hydronephrosis and hydroureter down to the urinary bladder. Distende d urinary bladder with massive enlargement of the prostate with indentation of the bladder base. I can not rule out a mass at th e base of the bladder. The tip of the Diego catheter is seen within the prostatic urethra. Reading Location: [id number]
[2025-01-25 15:00] VITALS: BP 130/69; PULSE 76; RESP 22; O2SAT 95
[2025-01-25 16:56] VITALS: BP 148/77; PULSE 89; RESP 19; O2SAT 99
[2025-01-25] MEDS: Ciprofloxacin 250 MG Tablet PO (17:35)
[2025-01-25 17:43] VITALS: BP 148/77; PULSE 74; RESP 19; TEMP 36.8; O2SAT 98
[2025-01-30 15:00] LABS: Pathologist Review May foll
== END 2025-01-25 17:44 | disposition home or self-care (01) ==
PROVIDERS: Emergency Provider Emergency Medicine; Visit Provider Emergency Medicine
DX: N17.9 Acute kidney failure, unspecified (principal); E11.9 Type 2 diabetes mellitus without complications; Z79.4 Long term (current) use of insulin; N40.1 Benign prostatic hyperplasia with lower urinary tract symptoms; I10 Essential (primary) hypertension; R82.81 Pyuria; E78.00 Pure hypercholesterolemia, unspecified; N13.8 Other obstructive and reflux uropathy; Z79.899 Other long term (current) drug therapy; Z79.84 Long term (current) use of oral hypoglycemic drugs; F17.200 Nicotine dependence, unspecified, uncomplicated; Z96.619 Presence of unspecified artificial shoulder joint
CPT/HCPCS: 51702; 74176; 80048; 81001; 83605; 85025; 87040; 87077; 87086; 87088; 87186; 96365; 99284; A4216

== ENCOUNTER 2025-03-02 09:44 | Emergency (ER) | payer OTHER, SELFPAY ==
[2025-03-02 09:46] VITALS: BP 157/73; PULSE 55; RESP 18; TEMP 36.2; O2SAT 95; BMI 33.5
--- NOTE | 2025-03-02 10:06 | EX.ED.DYSGE1 ---
HPI History of Present Illness Chief Complaint: Diego C/O Informant: patient Narrative Narrative: 79-year-old male presenting to the emergency room with leakage of urine around Diego catheter. Patient has had a indwelling Diego catheter since last fall. He states that [facility] He states that they did not have the same size that he had them before but he is unsure what size was in there before. He notes currently has a 20 Estonian. He notes a history of BPH he takes finasteride. He states that this is not the first time he is come to emergency because of a leaking Diego catheter. He notes no change in the urine. No fevers no chills. He states that last time it was leaking because the balloon was in my prostate. [facility] Medical History BPH with obstruction/lower urinary tract symptoms UTI (urinary tract infection) Leukocytosis Acute kidney injury Acute lactic acidosis Generalized weakness Diabetes High cholesterol HTN (hypertension) Smoker Prostate enlargement Lung cancer Home Medications ?Medication ?Instructions ?Recorded ?Last Taken ?Type amlodipine 10 mg tablet 10 mg PO DAILY BP 07/10/24 01/25/25 History aspirin 81 mg chewable tablet 81 mg PO DAILY blood thinner 07/10/24 01/24/25 History atorvastatin 40 mg tablet 40 mg PO QHS cholesterol 07/10/24 01/24/25 History glipizide 10 mg tablet 10 mg PO DAILY diabetes 07/10/24 01/25/25 History insulin glargine 100 unit/mL (3 14 unit subcut QHS diabetes 07/10/24 01/24/25 History mL) subcutaneous pen pregabalin 75 mg capsule (Lyrica) 75 mg PO BID pain 07/10/24 01/25/25 History sitagliptin 25 mg tablet 25 mg PO DAILY diabetes 07/10/24 01/25/25 History finasteride 5 mg tablet 5 mg PO DAILY #30 tabs 07/13/24 01/25/25 Rx ciprofloxacin HCl 500 mg tablet 500 mg PO DAILY 7 days #7 TABLETS 01/25/25 Unknown Rx ferrous gluconate 324 mg (38 mg 324 mg PO QHS 01/25/25 01/24/25 History iron) tablet Allergy/AdvReac Type Severity Reaction Status Date / Time amoxicillin (From Augmentin) Allergy Hives Verified 03/02/25 09:46 clavulanic acid (From Allergy Hives Verified 03/02/25 09:46 Augmentin) lisinopril Allergy Other Verified 03/02/25 09:46 Family History Other Diabetes Surgical History H/O shoulder replacement Social History Smoking Status: Heavy Smoker (>10/day) ROS ROS ED Constitutional Constitutional ED: Denies chills, fever(s) or weight loss Eyes Eyes: Denies change in vision or diplopia ENT ENT ED: Denies ear pain, rhinorrhea or sore throat Cardiovascular Cardiovascular: Denies chest pain, orthopnea, palpitations or racing heartbeat Respiratory/Chest Respiratory/Chest: Denies cough, dyspnea or orthopnea Gastrointestinal Gastrointestinal: Denies abdominal pain, diarrhea, nausea or vomiting Genitourinary Genitourinary ED: Reports other Details: See history of present illness ; Denies dysuria, hematuria or urinary frequency Musculoskeletal Musculoskeletal: Denies arthralgias or myalgias Integumentary Denies abscess or rash Neurologic Neurologic: Denies headache(s) or weakness Psychiatric Psychiatric: Denies anxiety, depression, suicidal ideation or suicidal thoughts Endocrine Endocrinology: Denies polydipsia, polyphagia or polyuria Allergic/Immunologic Allergic/Immunologic ED: Denies mouth swelling, tongue swelling or urticaria EXAM Physical Exam Const Vital Signs: 03/02/25 09:46 03/02/25 11:58 Temperature 97.2 F L 98.4 F Temperature Source Temporal Pulse Rate 55 L 59 L Respiratory Rate 18 18 Blood Pressure 157/73 H 130/74 H Blood Pressure Mean 101 92 Pulse Ox 95 98 Oxygen Delivery Method Room Air Positive well nourished and well developed General Appearance ED: well developed and NAD HEENT Reports normocephalic, head/scalp atraumatic and moist mucous membranes Eyes PERRL and EOMs intact bilaterally Neck no lymphadenopathy, supple and no JVD Resp normal respiratory effort and clear to auscultation bilaterally Cardio regular rate, regular rhythm and no murmurs GI normal to inspection, nondistended, normoactive bowel sounds and non-tender Palpation: soft Narrative: Penile shaft and glans appear without significant findings. There is leakage of urine around a 20 Estonian Diego catheter. There is no urine in his leg bag. There is no palpable urinary retention on examination. No significant tenderness in the suprapubic region. Back/Spine no CVA tenderness and normal ROM Extremity normal to inspection General Extremety ED: Negative for edema General Extremity: Negative for edema Neuro oriented x3 and CN's II-XII intact bilaterally Sensorium / Orientation: alert Motor Exam: strength 5/5 throughout Psych mental status grossly normal Mood & Affect: Negative for depressed or tearful Skin no rashes or lesions noted and no wounds MDM MDM MDM Narrative Medical decision making narrative: Differential diagnosis includes but not limited to Diego catheter malfunction too small Diego catheter urinary retention Catheter was replaced with a 22 Estonian Diego catheter. He had any further leakage. He has follow-up already scheduled with urology through the [place]. I can give him Dr. Mckoy here locally if he wishes to see a urologist locally. History & Record Review Discussion w/independent historian: Patient Additional record(s) reviewed:: Prior ED visit Discharge Plan Triage Chief Complaint: Diego C/O ED Provider: Clayton Croft Dx/Rx/DC Orders Clinical Impression: Diego catheter problem, BPH (benign prostatic hyperplasia) Instructions: ED Diego Catheter, Care Prescriptions: No Action insulin glargine 100 unit/mL (3 mL) insulin pen 14 unit subcut QHS aspirin 81 mg tablet,chewable 81 mg PO DAILY Patient Comments: PT TAKES IN EVENING atorvastatin 40 mg tablet 40 mg PO QHS pregabalin [Lyrica] 75 mg capsule 75 mg PO BID sitagliptin 25 mg tablet 25 mg PO DAILY amlodipine 10 mg tablet 10 mg PO DAILY glipizide 10 mg tablet 10 mg PO DAILY finasteride 5 mg Tablet 5 mg PO DAILY Qty: 30 1RF ferrous gluconate 324 mg (38 mg iron) tablet 324 mg PO QHS ciprofloxacin HCl 500 mg tablet 500 mg PO DAILY 7 Days Qty: 7 0RF Primary Care Provider: [facility],[place] Referrals: Chucky Mckoy MD [Med Staff - Active Staff] - (for local urology evaluation) [facility],[place] [Primary Care Provider] - Keep Cezar appointment Print Language: Slovenian Disposition Disposition: Home, Self Care Discharge Date/Time: 03/02/25 11:59
[2025-03-02 11:58] VITALS: BP 130/74; PULSE 59; RESP 18; TEMP 36.9; O2SAT 98
== END 2025-03-02 11:59 | disposition home or self-care (01) ==
PROVIDERS: Emergency Provider Emergency Medicine; Visit Provider Emergency Medicine
DX: T83.031A Leakage of indwelling urethral catheter, initial encounter (principal); E11.9 Type 2 diabetes mellitus without complications; Z79.4 Long term (current) use of insulin; E78.00 Pure hypercholesterolemia, unspecified; N40.0 Benign prostatic hyperplasia without lower urinary tract symptoms; I10 Essential (primary) hypertension; Z85.118 Personal history of other malignant neoplasm of bronchus and lung; Z79.899 Other long term (current) drug therapy; Z79.84 Long term (current) use of oral hypoglycemic drugs; Z79.82 Long term (current) use of aspirin; Z96.619 Presence of unspecified artificial shoulder joint; F17.200 Nicotine dependence, unspecified, uncomplicated
CPT/HCPCS: 51702; 99283

== ENCOUNTER → 2025-03-24 | Outpatient (CLI) | payer OTHER, SELFPAY ==
--- NOTE | 2025-03-24 10:00 | RAD_ITS ---
PROCEDURE: CHEST PA AND LATERAL 03/24/2025 REASON FOR EXAM: R/O PNEUMONIA TECHNIQUE: Frontal and lateral views of the chest. COMPARISON: Prior CT chest 07/30/2024, chest radiograph 07/09/2024, FINDINGS: Hardware: None. Heart: The heart size is normal. Mediastinum: There are atherosclerotic calcifications of the thoracic aorta. Lungs: Persistent ill-defined ovoid right upper lobe mass. Persistent changes of emphysema with scattered areas of scarring. No large focal consolidation, pleural effusion or pneumothorax. The previously reported small bilateral pulmonary nodules are not well-visualized by radiographic imaging. Bones: The previously reported right anterior 2nd rib fracture is not well- visualized by radiographic imaging. Degenerative changes are identified within the thoracic spine. RAD/Chest PA and Lateral IMPRESSION: 1. No obvious acute finding. 2. Ill-defined right upper lobe pulmonary mass, better evaluated on prior CT ch est. 3. The additional bilateral pulmonary nodules seen on prior chest CT are not we ll-visualized by radiographic imaging. Reading Location: [id number]
== END | disposition home or self-care (01) ==
LOC: RAD 09:59
PROVIDERS: Referring Provider Nurse Practitioner Family; Visit Provider Nurse Practitioner Family
DX: J20.9 Acute bronchitis, unspecified (principal)
CPT/HCPCS: 71046

== ENCOUNTER → 2025-04-05 | Outpatient (CLI) | payer OTHER, SELFPAY ==
--- NOTE | 2025-04-05 08:00 | PET_ITS ---
PROCEDURE: PET/CT TUMOR BASE -THIGH SUBS 04/05/2025 REASON FOR EXAM: 79 y/o M with LUNG CANCER TECHNIQUE: Following the intravenous administration of radionucleotide, image acquisition on a dedicated PET/CT unit was performed at one hour post injection. A preliminary CT study encompassing the Skull base, neck, chest, abdomen, pelvis, and proximal thighs was performed for purposes of attenuation correction and anatomic localization. The proximal thighs were also included. The patient's blood glucose level was 112 mg/dL (allowable range: 50-180 mg/dL). RADIOPHARMACEUTICAL: 12.46 mCi 18F-FDG (Fluorodeoxyglucose F18) IV was injected into he patient. RADIATION DOSE SUMMARY: Effective Dose: Approximately 7 mSv for a standard whole-body PET scan Organ Doses: Varies by organ, with higher doses typically to the bladder, liver, and brain COMPARISON: COMPARISON FROM CT, PET OR OTHER PERTINENT EXAMS: PET-CT 08/24/2024. FINDINGS: Physiologic uptake: There may be expected metabolic uptake within the brain, tongue and floor of the mouth and larynx/vocal cords, heart, milady (many normal individuals have hilar uptake in less than 3 nodes with mildly avid hilar nodes less than 2.7 SUV), liver and spleen, system, and GI tract and symmetric muscle uptake. FDG AVID AND NON-AVID LESIONS. Reported avid SUV values (g/mL*) are maximum SUV. NECK: There are no significant neck abnormalities. CHEST: Chest wall- There are no significant chest wall abnormalities. Axilla- There are no significant axillary abnormalities. Lung parenchyma- Centered on axial image 75 is seen a markedly increased, likely spiculated, lung nodule in the posteromedial left upper lobe, measured at approximately 11 mm in diameter, with hypermetabolic activity and SUV max of 3.5. This is highly concerning for malignancy. Areas of scarring in the right lung apex appear similar to the prior study, and show no hypermetabolic activity. Mediastinum- There are no significant hilar or mediastinal adenopathy. Pleura- There are no significant pleural abnormalities. ABDOMEN: Stomach- No significant abnormalities. Liver- No significant abnormalities. Spleen- No significant abnormalities. Pancrease- No significant abnormalities. Kidneys- No hypermetabolic activity is seen to suggest the presence of malignancy. Hyperdense bilateral renal cysts are again seen. Interval resolution of previous presumed anterior right renal abscess. Bilateral hydroureteronephrosis is again seen, somewhat more prominent on the right than on the prior exam of 08/24/2024. Perinephric stranding is again noted. Stable appearance areas of left renal calcification, likely post infarction. Bowel- Normal bowel activity. Spine- No significant abnormalities. PELVIS: Moderate sigmoid colon and descending colon diverticulosis is noted. Bowel- Normal physiologic bowel activity is identified. Masses- There are no pelvic masses. A Diego catheter is in place. Bones- With the use of bone window settings, there are no osteolytic or osteoblastic lesions. There are no FDG avid lesions within the visualized portion of the axial skeleton. PET/PET/CT Tumor Base -Thigh Subs IMPRESSION: FDG avid- Increased left upper lobe nodule, with hypermetabolic activity, highly concerni ng for the presence of malignancy. Other: Moderate sigmoid and descending colon diverticulosis. Additional findings as noted. Please note the low-dose CT scan was performed to facilitate PET image reconstr uction and anatomic localization and does not replace a diagnostic CT. Any diagnostic CT requested and performed at the time of the PET will be reported separately. Reading Location: [address]
--- OUTSIDE RECORDS SUMMARY | 2025-04-05 08:06 | XMS RPT_ITS | CCD ---
Author Organization [facility] CliniSyok Care Team Providers Care Lumber Grader Name Role Phone Yolis Musa PA-C Primary Care Provider PROVIDER, UNKNOWN Referring Unavailable Yolis Musa Primary Care Unavailable Heri Camarillo Attending Unavailable Heri Camarillo Attending Unavailable PROVIDER, UNKNOWN Referring Unavailable Yolis Musa Primary Care Unavailable KARI RAYMUNDO Attending Unavailable PACO GELLER Attending Unavailable HERI CAMARILLO Admitting Unavailable HERI CAMARILLO Attending Unavailable RABIA, HERI Attending Unavailable Dimple Yolis Primary Care Provider Unavai Sintia Gonzalez DO Unavailable Kenya PETIT, Franc Springer Unavailable Heri Camarillo MD Unavailable [place] Primary Care Provider Unavailabl Dr. Rowdy Hernandez DO Attending Provider [phone] Dr. Rowdy Shearer DO Emergency Provider Dr. Greg Ruiz MD Emergency Provider Dr. Greg Ruiz MD Attending Provider KEISHA MAP COMPILER-C, JANUARY Attending Provider [phone] KEISHA MAP COMPILER-C, JANUARY Referring Provider [phone] Dr. Clayton Croft DO Emergency Provider ALEC TINAJERO Attending [place], [place] Primary Care Provider UnavailDr. Clayton Palmer DO Attending Provider [phone] Musat MAP COMPILER-C, Chikis Attending Provider Musat MAP COMPILER-C, Chikis Referring Provider MIREYA SOLIS Attending Provider [phone] [id number] MIREYA SOLIS Referring Provider [phone] [id number] Chucky Mckoy Miguel Consulting Unavailable Gloriaam, Apple Mojgan Attending [facility]available [facility] Unavailable Kotsonis, Olman F Admitting Unavailable Kotsonis, Olman F Consulting Unavailable Jopperi, William Consulting Unavailable Koram, Apple Mojgan Consulting Unavailable Musat, Chikis Attending [facility]available [facility] Unavailable Musat, Chikis Referring Unavailable Georges Mcclellanolas F Attending Unavailable William Burciaga Attending Unavailable STJEMHOLM, MALIK Attending Unavailable STJEMHOLM, MALIK Referring [facility]available [facility] Unavailable KEISHA, JANUARY Referring Unavailable KEISHA, JANUARY Attending Unavailable STJEMHOLM, MALIK Referring Unavailable STJEMHOLM, MALIK Attending [facility]available [facility] Unavailable Leelee, Micha Consulting Unavailable Koram, Apple Mojgan Attending Unavailable Kotsonis Olman F Admitting [facility]available [facility] Unavailable Aztsonis, Olman F Consulting Unavailable Gualberto, William Consulting Unavailable STJEMHOLM, MALIK Referring Unavailable STJEMHOLM, MALIK Attending [facility]available [facility] Unavailable Franki Medina Attending [facility] Unavailable Rowdy Shearer Attending [facility] Unavailable Greg Ruiz Attending [facility] Unavailable Greg Ruiz Attending Unavailable Clayton Croft Attending [facility] Unavailable STJEMHOLM, MALIK Referring Unavailable STJEMHOLM, MALIK Attending [facility]available [facility] Unavailable Allergies Allergy Classification Reported Allergen(s) Allergy Type Date of Onset Reaction(s) Facility (11 sources) Amoxicillin Drug Allergy 2 [facility] (11 sources) Clavulanate Drug Allergy 2 [facility] (12 sources) Lisinopril Drug Allergy 2 [facility] Work Phone: (7 sources) buPROPion Drug Allergy 2 [facility] Work Phone: (1 source) Insulin Glargine Drug Allergy 2 Rash [facility] Work Phone: (7 sources) Amoxicillin-Pot Clavulanate Propensity to adverse reactions to drug 2 Headaches, Rash, Headache [facility] (6 sources) Insulin Glargine Drug Allergy 2 Rash [facility] (6 sources) Lisinopril Propensity to adverse reactions 2 Cough [facility] (1 source) Amoxicillin Drug Allergy 5 [facility] (1 source) Clavulanate Drug Allergy 5 [facility] (1 source) Lisinopril Drug Allergy 5 [facility] Medications Current Medications Medication Drug Class(es) Dates Sig (Normalized) Sig (Original) amLODIPine 10 mg oral tablet (11 sources) Dihydropyridine Calcium Channel Stef Start: 07-10-2024 take 1 tablet by mouth once daily Amlodipine 10 mg tablet Active 10 mg PO DAILY July 10, 2024 12:00am AMLODIPINE BESYL ATE PO Take by mouth. 0 Active aspirin 81 mg chewable tablet (6 sources) Platelet Aggregation Inhibitor, Nonsteroidal Anti-inflammatory Drug Start: 07-10-2024 take 1 tablet by mouth once daily Aspirin 81 mg tablet,chewable Active 81 mg PO DAILY July 10, 2024 12:00am take 1 tablet by mouth once pratima y aspirin 81 MG chewable tablet Take 81 mg by mouth daily 0 Active atorvastatin 40 mg oral tablet (5 sources) HMG-CoA Reductase Inhibitor Start: 07-10-2024 take 1 tablet by mouth at bedtime Atorvastatin 40 mg tablet Active 40 mg PO AT BEDTIME July 10, 2024 12:00am ciprofloxacin 500 mg oral tablet (8 sources) Quinolone Antimicrobial Start: 01-25-2025 take 1 tablet by mouth once daily Ciprofloxacin Hcl 500 mg tablet Active 500 mg PO DAILY 7 January 25, 2025 12:00am Start: 09-03-2024 End: 01-25-2025 take 1 tablet by mouth twice daily Ciprofloxacin Hcl (Cipro) 500 mg tablet Discontinued 500 mg PO TWICE A DAY September 03, 2024 1:00am January 25, 2025 12:36pm ferrous gluconate 324 mg oral tablet (9 sources) Start: 01-25-2025 take 1 tablet by mouth at bedtime Ferrous Gluconate 324 mg (38 mg iron) tablet Active 324 mg PO AT BEDTIME January 25, 2025 12:00am Start: 07-10-2024 End: 09-03-2024 take 1 tablet by mouth once daily Ferrous Gluconate 324 mg (38 mg iron) tablet Discontinued 324 mg PO DAILY July 10, 2024 12:00am September 03, 2024 2:29pm finasteride 5 mg oral tablet (6 sources) 5-alpha Reductase Inhibitor Start: 07-13-2024 take 1 tablet by mouth once daily Finasteride 5 mg Tablet Active 5 mg PO DAILY July 13, 2024 12:00am take 1 tablet by mouth in the mo rning finasteride (PROSCAR) 5 MG tablet Take 5 mg by mouth in the morning. 0 Active glipiZIDE 10 mg oral tablet (12 sources) Sulfonylurea Start: 07-10-2024 take 1 tablet by mouth once daily Glipizide 10 mg tablet Active 10 mg PO DAILY July 10, 2024 12:00am Start: 07-10-2024 take 1 tablet by mouth twice d aily Glipizide 10 mg tablet Active 10 mg PO TWICE A DAY July 10, 2024 12:00am take 1 tablet by micheal th before breakfast glipiZIDE (Glucotrol) 10 MG tablet Take 10 mg by mouth before breakfast and before evening meal. 0 Active hydroCHLOROthiazide 25 mg oral tablet (7 sources) Thiazide Diuretic take 1 tablet by mouth in the morning hydroCHLOROthiazide (HYDRODiuril) 25 MG tablet Take 25 mg by mouth in the morning. 0 Active 3 ml insulin glargine 100 unt/ml pen injector (5 sources) Insulin Analog Start: 2023 Insulin Glargine 100 unit/mL (3 mL) insulin pen Active 14 U SC AT BEDTIME July 10, 2024 12:00am Start: 07-10-2024 Insulin Glargi ne 100 unit/mL (3 mL) insulin pen Active 16 U SC EVERY EVENING July 10, 2024 12:00am losartan potassium 100 mg oral tablet (7 sources) Angiotensin 2 Receptor Stef take 1 tablet by mouth in the morning losartan (Cozaar) 100 MG tablet Take 100 mg by mouth in the morning. 0 Active metFORMIN hydrochloride 500 mg oral tablet (7 sources) Biguanide take 1 tablet by mouth at bedtime metFORMIN (Glucophage) 500 MG tablet Take 500 mg by mouth in the morning and at bedtime. 0 Active NON FORMULARY (6 sources) NON FORMULARY 20 Units Nightly. DETMIER Insulin 0 Active NONFORMULARY (1 source) NONFORMULARY Indications: insulin, substitute for Lantus. 20 Units nightly Indications: insulin, substitute for Lantus. 0 Active pregabalin 75 mg oral capsule (5 sources) Start: 07-10-20 take 1 capsule by mouth twice daily Pregabalin (Lyrica) 75 mg capsule Active 75 mg PO TWICE A DAY July 10, 2024 12:00am SITagliptin 25 mg oral tablet (5 sources) Dipeptidyl Peptidase 4 Inhibitor Start: 07-10-20 take 1 tablet by mouth once daily Sitagliptin 25 mg tablet Active 25 mg PO DAILY July 10, 2024 12:00am 24 hr tolterodine tartrate 2 mg extended release oral capsule (2 sources) Cholinergic Muscarinic Antagonist Start: 11-07-19 End: 05-06-20 take 1 capsule by mouth once daily tolterodine LA (Detrol LA) 2 MG 24 hr capsule Indications: Urgency of urination Take 1 capsule (2 mg) by mouth daily. Do not crush, chew, or split. 30 capsule 5 11/07/2022 05/06/2023 Active Completed/Discontinued Medications Medication Drug Class(es) Dates Sig (Normalized) Sig (Original) cefdinir 300 mg oral capsule (5 sources) Cephalosporin Antibacterial Start: 07-13-2024 End: 01-25-2025 take 1 capsule by mouth twice daily Cefdinir 300 mg capsule Discontinued 300 mg PO TWICE A DAY July 13, 2024 12:00am January 25, 2025 12:36pm insulin, regular, human 100 unt/ml injectable solution (1 source) Insulin End: 08-15-2022 insulin regular (HUMULIN R;NOVOLIN R) 100 UNIT/ML injection Indications: pt does not know name , same as Lantus Inject 20 Units into the skin every evening Indications: pt does not know name , same as Lantus 0 08/15/2022 Discontinued (LIST CLEANUP) 24 hr mirabegron 25 mg extended release oral tablet (5 sources) beta3-Adrenergic Agonist Start: 11-04-2022 End: 11-04-2022 take 1 tablet by mouth once daily mirabegron ER (Myrbetriq) 25 MG 24 hr tablet Indications: Overactive Bladder Take 1 tablet (25 mg) by mouth Nightly. Do not crush, chew, or split. 90 tablet 3 11/04/2022 11/04/2022 Discontinued (Cost of medication) tamsulosin hydrochloride 0.4 mg oral capsule (6 sources) alpha-Adrenergic Stef Start: 07-13-2024 End: 01-25-2025 take 1 capsule by mouth twice daily Tamsulosin 0.4 mg Capsule Discontinued 0.4 mg PO TWICE A DAY 60 July 13, 2024 12:00am January 25, 2025 12:38pm take 1 capsule by mouth in the m orning tamsulosin (FLOMAX) 0.4 MG capsule Take 0.4 mg by mouth in the morning and 0.4 mg before bedtime. 0 Active trospium chloride 20 mg oral tablet (16 sources) Cholinergic Muscarinic Antagonist Start: 11-04-2022 End: 11-07-2022 take 1 tablet by mouth twice daily trospium (Sanctura) 20 MG tablet Indications: Frequency of urination Take 1 tablet (20 mg) by mouth 2 times daily. 180 tablet 0 11/04/2022 11/07/2022 Discontinued (Ineffective) Start: 10-17-2022 End: 11-04-2022 take 1 tablet by mouth once daily trospium (Sanctura) 20 MG tablet Indications: Frequency of urination Take 1 tablet (20 mg) by mouth daily. 30 tablet 1 10/25/2022 11/04/2022 Discontinued (Ineffective) Problems Active Problems Problem Classification Problem Date Documented Da te Episodic/Chronic Acute and unspecified renal failure (9 sources) Acute renal failure syndrome; Translations: [Acute kidney failure, unspecified] Onset: 01-31-2025 07-21-2024 Episodic Acute bronchitis (1 source) Acute bronchitis, unspecified; Translations: [Acute bronchitis, unspecified] Onset: 03-29-2025 Episodic Cancer of bronchus; lung (10 sources) Malignant tumor of lung; Translations: [Malignant neoplasm of unspecified part of unspecified bronchus or lung] Onset: 06-09-2022 06-09-2022 Chronic Cancer of bronchus; lung (2 sources) Personal history of other malignant neoplasm of bronchus and lung; Translations: [Personal history of malignant neoplasm of bronchus and lung] Onset: 08-15-2022 Episodic Cardiac dysrhythmias (7 sources) Atrial fibrillation; Translations: [Unspecified atrial fibrillation] Onset: 06-09-2022 06-09-2022 Chronic Complication of device; implant or graft (14 sources) Disorder of urethral catheter; Translations: [Breakdown (mechanical) of indwelling urethral catheter, initial encounter] Onset: 12-07-2024 01-14-2025 Episodic Diabetes mellitus without complication (14 sources) Diabetes mellitus; Translations: [Type 2 diabetes mellitus without complications] Onset: 06-09-2022 06-09-2022 Chronic Diseases of white blood cells (5 sources) Leukocytosis; Translations: [Elevated white blood cell count, unspecified] 07-21-2024 Chronic Essential hypertension (14 sources) Hypertensive disorder; Translations: [Essential (primary) hypertension] Onset: 06-09-2022 06-09-2022 Chronic Fluid and electrolyte disorders (5 sources) Lactic acidosis; Translations: [Acute lactic acidosis] 07-21-2024 Episodic Genitourinary symptoms and ill-defined conditions (20 sources) Increased frequency of urination; Translations: [Frequency of micturition] Onset: 06-10-2022 06-10-2022 Episodic Hyperplasia of prostate (20 sources) Benign prostatic hypertrophy with outflow obstruction; Translations: [Benign prostatic hyperplasia with lower urinary tract symptoms] Onset: 06-10-2022 06-10-2022 Chronic Malaise and fatigue (5 sources) Asthenia; Translations: [Weakness] 07-21-2024 Episodic Other aftercare (2 sources) salvage determiner (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; Translations: [halfway (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] Onset: 08-15-2022 Episodic Other circulatory disease (2 sources) Personal history of other diseases of the circulatory system; Translations: [Personal history of other diseases of the circulatory system] Onset: 08-15-2022 Episodic Other diseases of kidney and ureters (6 sources) Unspecified hydronephrosis; Translations: [Hydronephrosis due to obstruction of bladder] Onset: 01-25-2025 09-11-2024 Episodic Residual codes; unclassified (2 sources) Obstructive sleep apnea (adult) (pediatric); Translations: [Obstructive sleep apnea (adult) (pediatric)] Onset: 08-15-2022 Chronic Residual codes; unclassified (2 sources) Dependence on other enabling machines and devices; Translations: [Dependence on other enabling machines and devices] Onset: 08-15-2022 Chronic Residual codes; unclassified (5 sources) Urinary catheter in situ; Translations: [Presence of other specified devices] 09-11-2024 Episodic Substance-related disorders (2 sources) Nicotine dependence, unspecified, uncomplicated; Translations: [Nicotine dependence, unspecified, uncomplicated] Onset: 08-15-2022 Chronic Unclassified (1 source) Other pericardial effusion (noninflammatory); Translations: [Other pericardial effusion (noninflammatory)] Onset: 08-15-2022 Unclassified (2 sources) N40.1 // N13.8 Onset: 08-22-2022 Unclassified (3 sources) with your urologist Unclassified (2 sources) for local urology evaluation Past or Other Problems Problem Classification Problem Date Documented Date Episodic/Chronic Other diseases of kidney and ureters (1 source) Hydronephrosis with renal and ureteral calculous obstruction; Translations: [Hydronephrosis with renal and ureteral calculous obstruction] Onset: 09-28-2024 Episodic Other diseases of kidney and ureters (1 source) Other obstructive and reflux uropathy; Translations: [Other obstructive and reflux uropathy] Onset: 07-14-2024 Episodic Other screening for suspected conditions (not mental disorders or infectious disease) (7 sources) Raised prostate specific antigen; Translations: [Elevated prostate specific antigen [PSA]] Onset: 06-10-2022 06-10-2022 Episodic [place]-; endo-; and myocarditis; cardiomyopathy (except that caused by tuberculosis or sexually transmitted disease) (7 sources) Pericardial effusion; Translations: [Pericardial effusion] Onset: 06-09-2022 06-09-2022 Episodic Septicemia (except in labor) (1 source) Sepsis, unspecified organism; Translations: [Sepsis, unspecified organism] Onset: 08-04-2024 Episodic Unclassified (1 source) Other pericardial effusion (noninflammatory); Translations: [Other pericardial effusion (noninflammatory)] Onset: 08-15-2022 Urinary tract infections (14 sources) Urinary tract infectious disease; Translations: [Urinary tract infection, site not specified] Onset: 07-14-2024 07-21-2024 Episodic Results Test Name Value Interpretation Reference Range Facility Chest PA and Lateralon 03-24 Chest PA and Lateral [facility] Imaging Services [address] [place], [place] [id number] Chest PA and Lateral MR#: [id number] Acct: [id number] Name: LORI LYNCH Rep #: [id number] : 1945 M 79 From: Zarina Edouard nd, MD PCP: [facility] Status: REG CLI Study: Chest PA and Lateral Date of Exam: 03/24/25 Exam# [id number] Ordering Dr: Chikis Hernandez PROCEDURE: CHEST PA AND LATERAL 03/24/2025 REASON FOR EXAM: R/O PNEUMONIA TECHNIQUE: Frontal and lateral views of the chest. COMPARISON: Prior CT chest 07/30/2024, chest radiograph 07/09/2024, FINDINGS: Hardware: None. Heart: The heart size is normal. Mediastinum: There are atherosclerotic calcifications of the thoracic aorta. Lungs: Persistent ill-defined ovoid right upper lobe mass. Persistent changes of emphysema with scattered areas of scarring. No large focal consolidation, pleural effusion or pneumothorax. The previously reported small bilateral pulmonary nodules are not well-visualized by radiographic imaging. Bones: The previously reported right anterior 2nd rib fracture is not well-visualized by radiographic imaging. Degenerative changes are identified within the thoracic spine. RAD/Chest PA and Lateral IMPRESSION: 1. No obvious acute finding. 2. Ill-defined right upper lobe pulmonary mass, better evaluated on prior CT chest. 3. The additional bilateral pulmonary nodules seen on prior chest CT are not well-visualized by radiographic imaging. 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 Camarillo as noted below but a lot of urine frequency then that persisted Catheter has been draining well now No fevers or chills Follows his elevated creatinine with [facility] CT report showed some mild bilateral hydroureter and severe BPH with bilateral renal cysts and some might be 2F and suggested follow-up Instructed him to get disc with films from [place] where he had them and see me back for cystoscopy and ultrasound of prostate and go from there Past Uology History: October 18, 2022-[facility] by [facility]. Camarillo[facility] 77 y.o. male who presents for telehealth visit regarding frequency after Aquablation. Aquablation 08/22/2022. Still on tamsulosin and finasteride. Feels that he empties his bladder adequately. However he has very severe urgency and frequency. No hematuria or dysuria Labs/Radiology/Procedu res: February 10, 2025-CT/external-bilat eral renal cysts scaling from 1-2 F and mild bilateral hydroureter left greater than right and severe BPH No results found for: CREAT No results found for: PSA No results found for: COLOR, CLARITY, UGLUC, UBILI, UKET, SPGR, UHB, UPH, UPROT, UROBILINOGEN, NITRITES, LEUKEST Review of Systems Constitutional: Negative. HENT: Negative. Eyes: Negative. Respiratory: Positive for shortness of breath. Off and on Gastrointestinal: Negative. Endocrine: Negative. Genitourinary: See HPI Musculoskeletal: Negative. Skin: Negative. Allergic/Immunologic: Negative. Neurological: Negative. Hematological: Negative. Psychiatric/Behavioral : Negative. I reviewed and confirmed ROS done by [facility] HISTORIES PAST MEDICAL HISTORY Diagnosis Date Diabetes mellitus (HCC) HTN (hypertension) No family history on file. SOCIAL HISTORY Social History Tobacco Use Smoking status: Every Day Current packs/day: 1.00 Average packs/day: 1 pack/day for 60.0 years (60.0 ttl pk-yrs) Types: Cigarettes Smokeless tobacco: Never Substance Use Topics Alcohol use: Never Drug use: Never MEDICATIONS: albuterol HFA (PROVENTIL HFA, VENTOLIN HFA) 90 mcg/actuation inhaler Inhale as instructed. amLODIPine (NORVASC) 10 mg tablet Take 10 mg by mouth once daily. aspirin, enteric coated (ASPIRIN, ENTERIC COATED) 81 mg EC tablet Take 81 mg by mouth once daily. atorvastatin (LIPITOR) 40 mg tablet Take 40 mg by mouth daily at bedtime. finasteride (PROSCAR) 5 mg tablet Take 5 mg by mouth. glipiZIDE (GLUCOTROL) 10 mg tablet Take 10 mg by mouth every morning. tamsulosin (FLOMAX) 0.4 mg Take 0.4 mg by mouth. trospium (SANCTURA) 20 mg tablet Take 20 mg by mouth. pregabalin (LYRICA) 75 mg capsule Take 75 mg by mouth two times a day. Physical Exam HENT: Head: Normocephalic and atraumatic. Nose: Nose normal. Neck: Trachea: No tracheal deviation. Pulmonary: Effort: Pulmonary effort is normal. No respiratory distress. Musculoskeletal: General: No deformity. Normal range of motion. Cervical back: Normal range of motion. Skin: General: Skin is warm. Neurological: Mental Status: He is alert and oriented to person, place, and time. Gait: Gait is intact. Psychiatric: Mood and Affect: Mood and affect normal. Cognition and Memory: Memory normal. The sensitive exam: The sensitive examination was discussed with the Patient or Patient's Authorized Senior Applications Engineer. As applicable, any other physician, advance practice provider, medical student, or other health professional student that will be observing or involved in the sensitive examination for educational or training purposes was discussed with the Patient or Authorized Senior Applications Engineer. The Patient or Authorized Senior Applications Engineer has agreed to proceed with the sensitive examination. (Sensitive examination includes inspection and/or palpation of the breasts, pelvis, prostate and anorectal regions) Risk/Benefit Discussion: Cystoscopy I explained the options concerning cystoscopy I did tell the patient about various alternatives and why cystoscopy was indicated in this particular circumstance. I advised the patient about the possi (more content not included)... Normal [facility] Emergency Department Summary on 03-02-2025 Emergency Department Summary [facility] Medical Records Department [address] [place] [address] Emergency Department Summary 03/02/25 MR#: [id number] Acct: [id number] Name: LORI LYNCH Rep #: [id number] : 1945 79 From: Clayton Croft DO PCP: [facility] Hospital Status[facility] ER Location: ED HPI History of Present Illness Chief Complaint: Diego C/O Informant: patient Narrative Narrative: 79-year-old male presenting to the emergency room with leakage of urine around Diego catheter. Patient has had a indwelling Diego catheter since last fall. He states that it was changed a few days ago by the [facility]. He states that they did not have the same size that he had them before but he is unsure what size was in there before. He notes currently has a 20 Portuguese. He notes a history of BPH he takes finasteride. He states that this is not the first time he is come to emergency because of a leaking Diego catheter. He notes no change in the urine. No fevers no chills. He states that last time it was leaking because the balloon was in my prostate. [facility] Medical History BPH with obstruction/lower urinary tract symptoms UTI (urinary tract infection) Leukocytosis Acute kidney injury Acute lactic acidosis Generalized weakness Diabetes High cholesterol HTN (hypertension) Smoker Prostate enlargement Lung cancer Home Medications ???Medication ???Instructions ???Recorded ???Last Taken ???Type amlodipine 10 mg tablet 10 mg PO DAILY BP 07/10/24 04//2 5 History aspirin 81 mg chewable tablet 81 mg PO DAILY blood thinner 07/1001/24/25 History atorvastatin 40 mg tablet 40 mg PO QHS cholesterol 07/10/24 01/24/25 History glipizide 10 mg tablet 10 mg PO DAILY diabetes 07/10/24 0 01/25/25 History insulin glargine 100 unit/mL (3 14 unit subcut QHS diabetes 01/24/25 History mL) subcutaneous pen pregabalin 75 mg capsule (Lyrica) 75 mg PO BID pain 07/10/24 History sitagliptin 25 mg tablet 25 mg PO DAILY diabetes 07/10/24 0 01/25/25 History finasteride 5 mg tablet 5 mg PO DAILY #30 tabs 07/13/24 Rx ciprofloxacin HCl 500 mg tablet 500 mg PO DAILY 7 days #7 TABLETS 01/25/25 Unknown Rx ferrous gluconate 324 mg (38 mg 324 mg PO QHS 01/25/25 01/24/25 Hi story iron) tablet Allergy/AdvReac Type Severity Reaction Status Date / Time amoxicillin (From Augmentin) Allergy Hives Verified 03/02/25 09:46 clavulanic acid (From Allergy Hives Verified 03/02/25 09:46 Augmentin) lisinopril Allergy Other Verified 03/02/25 09:46 Family History Other Diabetes Surgical History H/O shoulder replacement Social History Smoking Status: Heavy Smoker (>10/day) ROS ROS ED Constitutional Constitutional ED: Denies chills, fever(s) or weight loss Eyes Eyes: Denies change in vision or diplopia ENT ENT ED: Denies ear pain, rhinorrhea or sore throat Cardiovascular Cardiovascular: Denies chest pain, orthopnea, palpitations or racing heartbeat Respiratory/Chest Respiratory/Chest: Denies cough, dyspnea or orthopnea Gastrointestinal Gastrointestinal: Denies abdominal pain, diarrhea, nausea or vomiting Genitourinary Genitourinary ED: Reports other Details: See history of present illness ; Denies dysuria, hematuria or urinary frequency Musculoskeletal Musculoskeletal: Denies arthralgias or myalgias Integumentary Denies abscess or rash Neurologic Neurologic: Denies headache(s) or weakness Psychiatric Psychiatric: Denies anxiety, depression, suicidal ideation or suicidal thoughts Endocrine Endocrinology: Denies polydipsia, polyphagia or polyuria Allergic/Immunologic Allergic/Immunologic ED: Denies mouth swelling, tongue swelling or urticaria EXAM Physical Exam Const Vital Signs: 03/02/25 09:46 03/02/25 11:58 Temperature 97.2 F L 98.4 F Temperature Source Temporal Pulse Rate 55 L 59 L Respiratory Rate 18 18 Blood Pressure 157/73 H 130/74 H Blood Pressure Mean 101 92 Pulse Ox 95 98 Oxygen Delivery Method Room Air Positive well nourished and well developed General Appearance ED: well developed and NAD HEENT Reports normocephalic, head/scalp atraumatic and moist mucous membranes Eyes PERRL and EOMs intact bilaterally Neck no lymphadenopathy, supple and no JVD Resp normal respiratory effort and clear to auscultation bilaterally Cardio regular rate, regular rhythm and no murmurs GI normal to inspection, nondistended, normoactive bowel sounds and non-tender Palpation: soft Narrative: Penile shaft and glans appear without significant findings. There (more content not included)... Normal [facility] CBC W/Diff, Automatedon 01-26 PATH REV Reviewed Normal [facility] Comment on above: Result Comment: SEE REPORT IN PATIENT'S EMR AMENDED REPORT 02/14/25 1606 PATH REV previously reported as: February Performed By: #### L 100.0100, L503.6005, L500.2500 ####[facility] [address] [place], [place], [address] Culture, Blood (WB)on 2024 CUB Blood cultures x2, from two different sites No growth in 5 days. [facility] Comment on above: Performed By: #### M 200.1000 ####[facility] [address] [place], [place], [address] Urine Cultureon 01-27-2025 [facility] Hafnia alvei [place] Count 80,000-100,000 Hafnia alvei: REACTION Ampicillin Islt SEGUNDO Ampicillin+Sulbac Islt SEGUNDO >=32 R cefTRIAXone Islt SEGUNDO 1 S Ciprofloxacin Islt SEGUNDO <=0.06 S Gentamicin Islt SEGUNDO <=1 S levoFLOXacin Islt SEGUNDO <=0.12 S Meropenem Islt SEGUNDO <=0.25 S Nitrofurantoin Islt SEGUNDO <=16 S Pip+Tazo Islt SEGUNDO 16 I TMP SMX Islt SEGUNDO <=20 S Normal [facility] Comment on above: Performed By: #### M 100.2200 ####[facility] [id number] [facility], [address] Abdomen/Pelvis without Conto n 01-25-2025 Abdomen/Pelvis without Cont [facility] Imaging Services [address] [place] [address] Abdomen/Pelvis without Cont MR#: [id number] Acct: [id number] Name: LORI LYNCH Rep #: [id number] : 1945 M 79 From: Ramses gasca MD PCP: [facility] Status: REG ER Study: Abdomen/Pelvis without Cont Date of Exam: 11/20 Exam# [id number] Ordering Dr: Greg Ruiz MD PROCEDURE: ABDOMEN/PELVIS WITHOUT CONT 01/25/2025 REASON FOR EXAM: UTI, RENAL FAILURE, CHILLS Acute kidney injury. Hypertension. TECHNIQUE: Abdomen and pelvis CT without intravenous contrast. Noncontrast technique limits evaluation of the abdominal and pelvic viscera. Coronal and Sagittal reconstruction series were provided. One or more dose reduction techniques were used (e.g., Automated exposure control, adjustment of the mA and/or kV according to patient size, use of iterative reconstruction technique). PATIENT PREPARATION: Per protocol ORAL CONTRAST TYPE: None. COMPARISON: Comparison is made with prior study dated August 31, 2024. FINDINGS: Lung bases: Mild dependent atelectasis. Coronary artery calcification. Liver: Unremarkable Gallbladder: Findings suggestive of sludge or small gallstones along the dependent portion of the gallbladder lumen. Spleen: Normal size. Pancreas: Normal size. No surrounding inflammation. Adrenals: Unremarkable Kidneys: Bilateral perinephric stranding. Bilateral hydronephrosis. Bilateral hydroureter down to the ureterovesical junction. Stable bilateral renal hyperdense cysts and possible small solid nodules. Correlation with ultrasound recommended for further evaluation. Bladder: Diffuse bladder wall thickening. The bladder is empty. Marked enlargement of the prostate gland with indentation of the bladder base. A Diego catheter is seen with the balloon dilated in the prostatic urethra. Can not exclude a mass at the base of the bladder. Reproductive Organs: Bowel: Colonic diverticulosis without diverticulitis. Appendix: The appendix is not identified. There is no inflammatory process identified in the right lower quadrant to suggest appendicitis. Lymph nodes: No retroperitoneal lymphadenopathy is seen. Vasculature: Mild diffuse atherosclerotic calcifications are noted. Peritoneum / Retroperitoneum: Unremarkable Bones: Degenerative changes of the spine. CT/Abdomen/Pelvis without Cont IMPRESSION: Bilateral hydronephrosis and hydroureter down to the urinary bladder. Distended urinary bladder with massive enlargement of the prostate with indentation of the bladder base. I can not rule out a mass at the base of the bladder. The tip of the Diego catheter is seen within the prostatic urethra. Reading Location: [id number] CC: Dr. Greg Ruiz MD; [facility] [employer]arm Installer: Signed Normal [facility] Absolute lymphocyte countOrd ered By: Greg Ruiz on 01-25-2025 Lymphocytes Auto (Unsp spec) [#/Vol] 1.67 10*3/uL 0.83-4.51 [facility] Absolute neutrophil countOrd ered By: Greg Ruiz on 01-25-2025 Neutrophils (Bld) [#/Vol] 13.0 10*3/uL High 2.0-7.7 [facility] Anion gap in Serum or Plasma Ordered By: Greg Ruiz on 01-25-2025 Anion gap [Moles/Vol] 14 mmol/L 5-15 [facility] Automated lymphocyte count a s percentage of total leukocytesOrdered By: Greg Ruiz on 01-25-2025 Lymphocytes/100 WBC Auto (Unsp spec) 9.4 % Low 19-41 [facility] BUN/creatinine ratioOrdered By: Greg Ruiz on 01-25-2025 Urea nitrogen/Creatinine [Mass ratio] 14.9 mg/mg 10- [facility] Basic Metabolic Profile (BMP )on 01-25-2025 BUN/CRE 14.9 RATIO Normal - [facility] Comment on above: Performed By: #### L 100.0100, L503.6005, L500.2500 ####[facility] [address] [place], [address] Calcium [Mass/Vol] 8.5 mg/dL Normal 7.6-11.0 [facility] Comment on above: Performed By: #### L 100.0100, L503.6005, L500.2500 ####[facility] [address] [place], [address] Chloride [Moles/Vol] 106 mmol/L Normal 98-108 [facility] Comment on above: Performed By: #### L 100.0100, L503.6005, L500.2500 ####[facility] [address] [place], [address] CO2 [Moles/Vol] 17.5 mmol/L Low 21.0-32.0 [facility] Comment on above: Performed By: #### L 100.0100, L503.6005, L500.2500 ####[facility] [address] [place], [address] Creatinine [Mass/Vol] 3.33 mg/dL High 0.70-1.20 [facility] Comment on above: Performed By: #### L 100.0100, L503.6005, L500.2500 ####[facility] [address] [place], [address] ECRCL 20.35 ml/min Low 50-250 [facility] Comment on above: Performed By: #### L 100.0100, L503.6005, L500.2500 ####[facility] [address] [place], [address] GAP 14 Normal 5-15 [facility] Comment on above: Performed By: #### L 100.0100, L503.6005, L500.2500 ####[facility] [address] [place], [address] GFR/1.73 sq M.predicted among non-blacks MDRD (S/P/Bld) [Vol rate/Area] 18 mL/min/{1.73_m2} Low >60 [facility] Comment on above: Result Comment: mL/m in/1.73m2 CKD-EPI Creatinine Equation (2020) Performed By: #### L 100.0100, L503.6005, L500.2500 ####[facility] [address] [place], [address] Glucose [Mass/Vol] 247 mg/dL High 70-99 [facility] Comment on above: Performed By: #### L 100.0100, L503.6005, L500.2500 ####[facility] [address] [place], [address] Potassium [Moles/Vol] 4.4 mmol/L Normal 3.3-5.1 [facility] Comment on above: Performed By: #### L 100.0100, L503.6005, L500.2500 ####[facility] [address] [place], [address] Sodium [Moles/Vol] 137 mmol/L Normal 133-145 [facility] Comment on above: Performed By: #### L 100.0100, L503.6005, L500.2500 ####[facility] [address] [place], [address] Urea nitrogen [Mass/Vol] 50 mg/dL High 4-19 [facility] Comment on above: Performed By: #### L 100.0100, L503.6005, L500.2500 ####[facility] [address] [place], [address] Basophil percentageOrdered B y: Greg Ruiz on 01-25-2025 Basophils/100 WBC (Bld) 0.4 % 0-1 [facility] Bilirubin Test strip Ql (U)O rdered By: Greg Ruiz on 01-25-2025 Bilirubin Ql (U) Negative Negative [facility] Blood cultureOrdered By: Maya Ruiz on 01-25-2025 Bacteria identified Cx Nom (Bld) No growth in 5 days. [facility] Bacteria identified Cx Nom (Bld) No growth in 5 days. [facility] Blood manual differential co mment interpretation (narrative result)Ordered By: Greg Ruiz on 01-25-2025 Manual differential comment Ed (Bld) [Interp] SCANNED [facility] Comment on above: MONOCYTOSIS NOTED Carbon dioxide, total [Moles /volume] in Central venous bloodOrdered By: Greg Ruiz on 01-25-2025 CO2 [Moles/Vol] 17.5 mmol/L Low 21.0-32.0 [facility] Chloride assayOrdered By: Aydee Ruiz on 01-25-2025 Chloride [Moles/Vol] 106 mmol/L 98-108 [facility] Emergency Department Summary on 01-25-2025 Emergency Department Summary [facility] Medical Records Department [address] [place] [address] Emergency Department Summary 01/25/25 MR#: [id number] Acct: [id number] Name: LORI LYNCH Rep #: [id number] : 1945 79 From: Greg Ruiz MD PCP: [facility] Status:REG ER Location: ED HPI History of Present Illness Chief Complaint: Complaint Informant: patient Narrative Narrative: Patient presents with almost 1 week of chills, urinary pressure sensation in his lower abdomen, and leaking of urine around his indwelling Diego catheter that he has for urinary retention. He was changed about 3 weeks ago. He has not seen urology since then he does have a urologist. He states he always has leaking around the catheter even since we changed it, but it is worse in the past week. He had blood in his urine/catheter about a week ago but it has not recurred since. Catheter has continued to drain and the urine has not looked any different. He is concerned he may have a UTI. [facility] Medical History BPH with obstruction/lower urinary tract symptoms UTI (urinary tract infection) Leukocytosis Acute kidney injury Acute lactic acidosis Generalized weakness Diabetes High cholesterol HTN (hypertension) Smoker Prostate enlargement Lung cancer Home Medications ???Medication ???Instructions ???Recorded ???Last Taken ???Type amlodipine 10 mg tablet 10 mg PO DAILY BP 07/10/24 5 History aspirin 81 mg chewable tablet 81 mg PO DAILY blood thinner 07/1001/24/25 History atorvastatin 40 mg tablet 40 mg PO QHS cholesterol 07/10/24 01/24/25 History glipizide 10 mg tablet 10 mg PO DAILY diabetes 07/10/24 0 01/25/25 History insulin glargine 100 unit/mL (3 14 unit subcut QHS diabetes 01/24/25 History mL) subcutaneous pen pregabalin 75 mg capsule (Lyrica) 75 mg PO BID pain 07/10/24 History sitagliptin 25 mg tablet 25 mg PO DAILY diabetes 07/10/24 0 01/25/25 History finasteride 5 mg tablet 5 mg PO DAILY #30 tabs 07/13/24 Rx ciprofloxacin HCl 500 mg tablet 500 mg PO DAILY 7 days #7 TABLETS 01/25/25 Unknown Rx ferrous gluconate 324 mg (38 mg 324 mg PO QHS 01/25/25 01/24/25 Richy novoa iron) tablet Allergy/AdvReac Type Severity Reaction Status Date / Time amoxicillin (From Augmentin) Allergy Hives Verified 01/25/25 11:18 clavulanic acid (From Allergy Hives Verified 01/25/25 11:18 Augmentin) lisinopril Allergy Other Verified 01/25/25 11:18 Family History Other Diabetes Surgical History H/O shoulder replacement Social History Smoking Status: Heavy Smoker (>10/day) ROS ROS ED Constitutional Constitutional ED: Reports chills; Denies fever(s) Eyes Eyes: Denies change in vision or diplopia ENT ENT ED: Denies rhinorrhea or sore throat Cardiovascular Cardiovascular: Denies chest pain or palpitations Respiratory/Chest Respiratory/Chest: Denies cough or dyspnea Gastrointestinal Gastrointestinal: Reports abdominal pain; Denies diarrhea, nausea or vomiting Genitourinary Genitourinary ED: Reports hematuria and other Details: Worsening leaking around catheter ; Denies dysuria Musculoskeletal Musculoskeletal: Denies back pain or neck pain Integumentary Denies abscess or rash Neurologic Neurologic: Denies headache(s), paresthesias or weakness Psychiatric Psychiatric: Denies anxiety or suicidal thoughts EXAM Physical Exam Const Vital Signs: 01/25/25 11:19 01/25/25 13:18 01/25/25 15:00 Temperature 98.7 F Temperature Source Temporal Pulse Rate 98 81 76 Respiratory Rate 16 18 22 H Blood Pressure 149/72 H 137/68 H 130/69 H Blood Pressure Mean 97 91 89 Pulse Ox 94 98 95 Oxygen Delivery Method Room Air Room Air 01/25/25 16:56 Temperature Temperature Source Pulse Rate 89 Respiratory Rate 19 H Blood Pressure 148/77 H Blood Pressure Mean 100 Pulse Ox 99 Oxygen Delivery Method Room Air Positive well nourished and well developed Constitutional Narrative: Well-appearing in no distress no rigors General Appearance ED: well developed and NAD HEENT Reports moist mucous membranes normocephalic and atraumatic Eyes PERRL and EOMs intact bilaterally Neck full ROM and supple Resp normal respiratory effort and clear to auscultation bilaterally Cardio regular rate, regular rhythm and no murmurs GI non-tender and non-distended Auscultation: normoactive bowel sounds Palpation: soft no CVA tenderness Narrative: Urethral Diego catheter in place. The catheter is draining cloudy yellow nonbl (more content not included)... Normal [facility] Eosinophil percentageOrdered By: Greg Ruiz on 01-25-2025 Eosinophils/100 WBC (Bld) 1.0 % 0-5 [facility] Epithelial cells.squamous LM Ql (Urine sed)Ordered By: Greg Ruiz on 01-25-2025 Epithelial cells.squamous LM.HPF (Urine sed) [#/Area] 0 /[HPF] 0-5 [facility] Erythrocyte distribution wid th ratioOrdered By: Greg Ruiz on 01-25-2025 Erythrocyte distribution width (RBC) [Ratio] 19.1 % High 11.6-14.6 [facility] Erythrocyte distribution wid th standard deviationOrdered By: Greg Ruiz on 01-25-2025 Erythrocyte distribution width (RBC) [Entitic vol] 51.0 fL High 35.1-43.9 [facility] Erythrocyte distribution width (RBC) [Ratio] 51.0 fl High 35.1-43.9 [facility] Estimation of creatinine alexis aranceOrdered By: Greg Ruiz on 01-25-2025 Estimated Creatinine Clearance Calc 20.35 ml/min Low 50-250 [facility] GFR/1.73 sq M.predicted pranav g non-blacks MDRD (S/P/Bld) [Vol rate/Area]Ordered By: Greg Ruiz on 01-25-2025 Estimated GFR (MDRD) Non-Af Amer 18 Low >60 [facility] Comment on above: mL/min/1.73m2 CKD-EP I Creatinine Equation (2020) Glomerular filtration rate ( GFR) estimation/1.73 sq m using serum, plasma, or whole bOrdered By: Greg Ruiz on 01-25-2025 GFR/1.73 sq M.predicted among non-blacks MDRD (S/P/Bld) [Vol rate/Area] 18 mL/min/{1.73_m2} Low >60 [facility] Comment on above: mL/min/1.73m2 CKD-EP I Creatinine Equation (2020) Glucose Ql (U)Ordered By: Aydee Ruiz on 01-25-2025 Glucose (U) [Mass/Vol] 100 mg/dL High Normal [facility] Hematocrit Auto (Bld) [Volum e fraction]Ordered By: Greg Ruiz on 01-25-2025 Hematocrit (Bld) [Volume fraction] 34.0 % Low 40-54 [facility] Hemoglobin measurementOrdere d By: Greg Ruiz on 01-25-2025 Hemoglobin (Bld) [Mass/Vol] 10.9 g/dL Low 13.0-16.5 [facility] Immature granulocytes/100 WB C Auto (Bld)Ordered By: Greg Ruiz on 01-25-2025 Immature granulocytes/100 WBC (Bld) 0.800 % 0.0-0.9 [facility] Comment on above: IG% - Immature Granu locytes (promyelocytes, myelocytes and metamyelocytes) > 1% indicates that a LEFT SHIFT is Present. Ketones Test strip Ql (U)Ord ered By: Greg Ruiz on 01-25-2025 Ketones Ql (U) Negative Negative [facility] Lactic Acidon 01-25-2025 Lactate [Moles/Vol] 1.4 mmol/L Normal 0.0-2.0 [facility] Comment on above: Order Comment: Y Performed By: #### L 100.0100, L503.6005, L500.2500 ####[facility] [address] [place], [address] Lactic acid measurementOrder ed By: Greg Ruiz on 01-25-2025 Lactate [Moles/Vol] 1.4 mmol/L 0.0-2.0 [facility] Lymphocytes Auto (Unsp spec) [#/Vol]Ordered By: Greg Ruiz on 01-25-2025 Lymphocytes (Bld) [#/Vol] 1.67 10*3/uL 0.83-4.51 [facility] Lymphocytes/100 WBC Auto (Un sp spec)Ordered By: Greg Ruiz on 01-25-2025 Lymphocytes/100 WBC (Bld) 9.4 % Low 19-41 [facility] MCV (mean corpuscular volume ) determinationOrdered By: Greg Ruiz on 01-25-2025 MCV (RBC) [Entitic vol] 74.9 fL Low 80-94 [facility] Manual differential comment Ed (Bld) [Interp]Ordered By: Greg Ruiz on 01-25-2025 Differential Comment SCANNED [facility] Comment on above: MONOCYTOSIS NOTED Mean corpuscular hemoglobin (MCH) determinationOrdered By: Greg Ruiz on 01-25-2025 MCH (RBC) [Entitic mass] 24.0 pg Low 27.0-32.0 [facility] Mean corpuscular hemoglobin concentration (MCHC) determinationOrdered By: Greg Ruiz on 01-25-2025 MCHC (RBC) [Mass/Vol] 32.1 g/dL 32-36 [facility] Mean platelet volume determi nationOrdered By: Greg Ruiz on 01-25-2025 Platelet mean volume (Bld) [Entitic vol] 10.8 fL 6.2-12.0 [facility] Microscopic analysis of urin e for red blood cells (RBC)Ordered By: Greg Ruiz on 01-25-2025 Microscopic analysis of urine for red blood cells (RBC) 25-50 SEEN /hpf 0-5 [facility] Urine RBC 25-50 SEEN /hpf 0-5 [facility] Monocyte percentageOrdered B y: Greg Ruiz on 01-25-2025 Monocytes/100 WBC (Bld) 15.4 % High 0-10 [facility] Mucus LM Ql (Urine sed)Order ed By: Greg Ruiz on 01-25-2025 Mucus Ql (Urine sed) 0 SEEN /hpf [facility] Neutrophil percentageOrdered By: Greg Ruiz on 01-25-2025 Neutrophils/100 WBC (Bld) 73.0 % High 47-70 [facility] Nitrite Test strip Ql (U)Ord ered By: Greg Ruiz on 01-25-2025 Nitrite Ql (U) Negative Negative [facility] Nucleated red blood cell per centageOrdered By: Greg Ruiz on 01-25-2025 Nucleated RBC/100 WBC (Bld) [Ratio] 0 % 0-5 [facility] Pathologist review Ed (Unsp spec) [Interp]Ordered By: Greg Ruiz on 01-25-2025 Differential Pathologist's Review [facility] Platelet countOrdered By: Aydee Ruiz on 01-25-2025 Platelets (Bld) [#/Vol] 228 10*3/uL 150-450 [facility] Potassium (Unsp spec) [Mass/ Vol]Ordered By: Greg Ruiz on 01-25-2025 Potassium [Moles/Vol] 4.4 mmol/L 3.3-5.1 [facility] Potassium measurement (mass/ volume)Ordered By: Greg Ruiz on 01-25-2025 Potassium (Unsp spec) [Mass/Vol] 4.4 mmol/L 3.3-5.1 [facility] Protein Test strip Ql (U)Ord ered By: Greg Ruiz on 01-25-2025 Protein Ql (U) 100 mg/dl High Negative [facility] RBC Auto (Bld) [#/Vol]Ordere d By: Greg Ruiz on 01-25-2025 RBC (Bld) [#/Vol] 4.54 10*6/uL Low 4.6-6.2 [facility] Review by pathologistOrdered By: Greg Ruiz on 01-25-2025 Pathologist review Ed (Unsp spec) [Interp] Reviewed [facility] Comment on above: Previous reported re sult: Lois barragan Edited by: WESTON on 01/30/25:1433 AMENDED REPORT 01/30/25 1433 PATH REV previously reported as: Lois barragan Previous reported result: N/A Edited by: WESTON on 01/30/25:1500 AMENDED REPORT 01/30/25 1500 PATH REV previously reported as: N/A Previous reported result: Lois barragan Edited by: ANGELA on 02/14/25:1606SEE REPORT IN PATIENT'S EMR AMENDED REPORT 02/14/25 1606 PATH REV previously reported as: Lois barragan Serum creatinine measurement (mass/volume)Ordered By: Greg Ruiz on 01-25-2025 Creatinine [Mass/Vol] 3.33 mg/dL High 0.70-1.20 [facility] Serum glucose measurement (m ass/volume)Ordered By: Greg Ruiz on 01-25-2025 Glucose [Mass/Vol] 247 mg/dL High 70-99 [facility] Serum or plasma calcium angle urement (mass/volume)Ordered By: Greg Ruiz on 01-25-2025 Calcium [Mass/Vol] 8.5 mg/dL 7.6-11.0 [facility] Serum or plasma urea nitroge n measurement (mass/volume)Ordered By: Greg Ruiz on 01-25-2025 Urea nitrogen [Mass/Vol] 50 mg/dL High 4-19 [facility] Sodium levelOrdered By: Km Ruiz on 01-25-2025 Sodium [Moles/Vol] 137 mmol/L 133-145 [facility] Squamous epithelial cells de tection in urine sediment by light microscopyOrdered By: Greg Ruiz on 01-25-2025 Epithelial cells.squamous LM Ql (Urine sed) 0-5 SEEN /hpf 0-5 [facility] Urinalysis, Completeon 01-25 EPI,SQUAMOUS 0-5 SEEN Normal 0-5 [facility] Comment on above: Order Comment: HUI TER SPECIMEN Performed By: #### L 400.0001 #### [facility] [address] [place], [address] BACTERIA 1+ /hpf Normal None Seen [facility] Comment on above: Order Comment: HUI TER SPECIMEN Performed By: #### L 400.0001 #### [facility] [address] [place], [address] RBC 25-50 SEEN Normal 0-5 [facility] Comment on above: Order Comment: HUI TER SPECIMEN Performed By: #### L 400.0001 #### [facility] [address] [place], [address] WBC >100 SEEN Normal 0-5 [facility] Comment on above: Order Comment: HUI TER SPECIMEN Performed By: #### L 400.0001 #### [facility] [address] [place], [address] Mucus Ql (Urine sed) 0 SEEN Normal [facility] Comment on above: Order Comment: HUI TER SPECIMEN Performed By: #### L 400.0001 #### [facility] [address] [place], [address] Urine blood detectionOrdered By: Greg Ruiz on 01-25-2025 Urine Occult Blood 250 /ul High Negative [facility] Urine clarityOrdered By: Maya Ruiz on 01-25-2025 Clarity (U) Turbid Clear [facility] Urine color determinationOrd ered By: Greg Ruiz on 01-25-2025 Color (U) Straw Yellow [facility] Urine cultureOrdered By: Maya Ruiz on 01-25-2025 Bacteria identified Cx Nom (U) Hafnia alvei Abnormal [facility] Urine glucose detectionOrder ed By: Greg Ruiz on 01-25-2025 Glucose Ql (U) 100 mg/dl High Normal [facility] Urine leukocyte esterase det ection by dipstickOrdered By: Greg Ruiz on 01-25-2025 Leukocyte esterase Test strip Ql (U) 500 /ul High Negative [facility] Urine pHOrdered By: Greg Ruiz on 01-25-2025 pH (U) 6.0 [pH] 5.0 - 8.0 [facility] Urine sediment bacteria coun t by microscopy (number/high power field)Ordered By: Greg Ruiz on 01-25-2025 Bacteria LM.HPF (Urine sed) [#/Area] 1 /[HPF] None Seen [facility] Urine specific gravity measu rementOrdered By: Greg Ruiz on 01-25-2025 Specific gravity (U) [Rel density] 1.010 1.002-1.030 [facility] Urine urobilinogen measureme ntOrdered By: Greg Ruiz on 01-25-2025 Urobilinogen Ql (U) Normal mg/dl Normal [facility] Urobilinogen Ql (U)Ordered B y: Greg Ruiz on 01-25-2025 Urine Urobilinogen Normal mg/dl Normal [facility] White blood cell (WBC) count Ordered By: Greg Ruiz on 01-25-2025 WBC (Bld) [#/Vol] 17.8 10*3/uL High 4.4-11.0 [facility] White blood cell countOrdere d By: Greg Ruiz on 01-25-2025 Urine WBC >100 SEEN /hpf 0-5 [facility] White blood cell count >100 SEEN /hpf 0-5 [facility] Renal Scan w/ Pharm Interven ton 01-21-2025 Renal Scan w/ Pharm Intervent [facility] [address] [place] [address] Renal Scan w/ Pharm Intervent MR#: [id number] Acct: [id number] Name: LORI LYNCH Rep #: [id number] : 1945 M 79 From: Ramses gasca MD PCP: [facility] Status: REG CLI Study: Renal Scan w/ Pharm Intervent Date of Exam: Exam# [id number] Ordering Dr: KEISHAPALLAVI MASON PROCEDURE: RENAL SCAN W/ PHARM INTERVENT 01/21/2025 REASON FOR EXAM: ADDIE HYDRO POSSIBLE OBSTUCTION TECHNIQUE: Technetium-99m DTPA intravenously with planar imaging of the abdomen. Immediate bloodflow and delayed renogram images with computer-reconstructed renogram curves. mg Lasix intravenously 15 minutes after the radiopharmaceutical. RADIOPHARMACEUTICAL: 11.3 mCi of Mag 3. 10 mg of Lasix intravenously. COMPARISON: None. FINDINGS: Perfusion: Essentially equal. 51% right kidney. 49% left kidney. Time-Activity Curves Left: Time to peak: 19 minutes Right: Time to peak: 22 minutes Differential function: 38% % on the left and 62% % on the right. T-1/2: 118 minutes minutes on the left and 40 minutes minutes on the right. Excretory delay bilaterally more prominent on the left side. NM/Renal Scan w/ Pharm Intervent IMPRESSION: There is evidence of bilateral decrease in renal excretion with decreased renal function of the left kidney. No significant change seen with the injection of Lasix. Reading Location: [place] [address] CC: JANUARY MASON VALDES; [facility] Home Fire Alarm Installer: Signed Normal [facility] Emergency Department Summary on 01-14-2025 Emergency Department Summary [facility] Medical Records Department [address] [place] [id number] Emergency Department Summary 01/14/25 MR#: [id number] Acct: [id number] Name: LORI LYNCH Rep #: [id number] : 1945 79 From: Greg Ruiz MD PCP: [facility] Status:REG ER Location: ED HPI History of Present Illness Chief Complaint: Diego C/O Informant: patient Narrative Narrative: Patient states that this morning and yesterday with moving around, he is leaking urine from around his Diego catheter. The catheter is still draining urine into the bag normally and he sees no blood, clots, or any other substance other than transparent yellow urine. He denies any abdominal pain, back pain, nausea, vomiting, testicular pain, penile pain, or fever/chills. He states he has a history of urinary retention and typically gets a catheter every month or so, this 1 was placed 2 days ago and he thinks that it was a different type of catheter than he usually gets, he thinks that is why it is leaking. [facility] Medical History BPH with obstruction/lower urinary tract symptoms UTI (urinary tract infection) Leukocytosis Acute kidney injury Acute lactic acidosis Generalized weakness Diabetes High cholesterol HTN (hypertension) Smoker Prostate enlargement Lung cancer Home Medications ???Medication ???Instructions ???Recorded ???Last Taken ???Type amlodipine 10 mg tablet 10 mg PO DAILY BP 07/10/24 4 History aspirin 81 mg chewable tablet 81 mg PO DAILY blood thinner 07/1009/03/24 History atorvastatin 40 mg tablet 40 mg PO QPM cholesterol 07/10/24 09/02/24 History glipizide 10 mg tablet 10 mg PO BID diabetes 07/10/2406/19 History insulin glargine 100 unit/mL (3 16 unit subcut QPM diabetes 09/02/24 History mL) subcutaneous pen pregabalin 75 mg capsule (Lyrica) 75 mg PO BID pain 07/10/24 History sitagliptin 25 mg tablet 25 mg PO DAILY diabetes 07/10/24 1 11/03/23 History cefdinir 300 mg capsule 300 mg PO BID #10 caps 07/13/24 Rx finasteride 5 mg tablet 5 mg PO DAILY #30 tabs 07/13/24 Rx tamsulosin 0.4 mg capsule 0.4 mg PO BID #60 caps 07/13/24 Rx ciprofloxacin HCl 500 mg tablet 500 mg PO BID #14 tabs 09/03/24 Un known Rx (Cipro) Allergy/AdvReac Type Severity Reaction Status Date / Time amoxicillin (From Augmentin) Allergy Hives Verified 01/14/25 14:12 clavulanic acid (From Allergy Hives Verified 01/14/25 14:12 Augmentin) lisinopril Allergy Other Verified 01/14/25 14:12 Family History Other Diabetes Surgical History H/O shoulder replacement Social History Smoking Status: Heavy Smoker (>10/day) ROS ROS ED Constitutional Constitutional ED: Denies chills or fever(s) Gastrointestinal Gastrointestinal: Denies abdominal pain, nausea or vomiting Genitourinary Genitourinary ED: Reports other Details: Urine leaking around catheter, see HPI ; Denies dysuria or hematuria Musculoskeletal Musculoskeletal: Denies back pain or neck pain Integumentary Denies rash Neurologic Neurologic: Denies headache(s), paresthesias or weakness EXAM Physical Exam Const Vital Signs: 01/14/25 11:38 01/14/25 13:37 Temperature 97.9 F Temperature Source Temporal Pulse Rate 87 83 Respiratory Rate 16 14 Blood Pressure 161/58 H 149/79 H Blood Pressure Mean 92 102 Pulse Ox 99 98 Oxygen Delivery Method Room Air Room Air Positive well nourished and well developed General Appearance ED: well developed and NAD GI non-tender and non-distended no CVA tenderness Back/Spine no CVA tenderness Neuro oriented x3, CN's II-XII intact bilaterally, no focal motor deficits and no sensory deficits noted Psych mental status grossly normal MDM MDM MDM Narrative Medical decision making narrative: I had nursing manipulate the contents of the balloon for the catheter to see if that helped, but the patient apparently told nursing that he wanted a new catheter placed so they placed 1, it is not leaking, and the patient states he is ready to leave. I do not think he needs to have a urinalysis, given the appearance of his urine and lack of any other symptoms. Discharge Plan Triage Chief Complaint: Diego C/O ED Provider: Greg Ruiz Dx/Rx/DC Orders Clinical Impression: Malfunction of Diego catheter Instructions: Indwelling Urinary Catheter Dc Prescriptions: No Action insulin glargine 100 unit/mL (3 mL) insulin pen 16 unit subcut QPM aspirin 81 mg tablet,chewable 81 mg PO DAILY atorvastatin 40 mg t (more content not included)... Normal [facility] Emergency Department Summary on 11-13-2024 Emergency Department Summary [facility] Medical Records Department [address] [place] [address] Emergency Department Summary 11/13/24 MR#: [id number] Acct: [id number] Name: LORI LYNCH Rep #: [id number] : 1945 79 From: Rowdy Shearer DO PCP: [facility] Status:DEP ER Location: ED HPI History of Present Illness Chief Complaint: Diego C/O Informant: patient Narrative Narrative: Patient is a 79-year-old male with past medical history of hypertension hyperlipidemia diabetes and BPH which is led to urinary retention and need for a chronic indwelling Diego catheter. Patient states that earlier today the catheter was accidentally tugged on and he believes it dislodged slightly as he is now leaking urine around the catheter insertion site. He denies any bleeding fever or pain but with concern he needs a catheter replaced he presents for evaluation [facility] Medical History BPH with obstruction/lower urinary tract symptoms UTI (urinary tract infection) Leukocytosis Acute kidney injury Acute lactic acidosis Generalized weakness Diabetes High cholesterol HTN (hypertension) Smoker Prostate enlargement Lung cancer Home Medications ???Medication ???Instructions ???Recorded ???Last Taken ???Type amlodipine 10 mg tablet 10 mg PO DAILY BP 07/10/24 09/03/24 History aspirin 81 mg chewable tablet 81 mg PO DAILY blood thinner 07/10/24 09/03/24 History atorvastatin 40 mg tablet 40 mg PO QPM cholesterol 07/10/24 09/02/24 History glipizide 10 mg tablet 10 mg PO BID diabetes 07/10/24 09/03/24 History insulin glargine 100 unit/mL (3 16 unit subcut QPM diabetes 07/10/24 09/02/24 History mL) subcutaneous pen pregabalin 75 mg capsule (Lyrica) 75 mg PO BID pain 07/10/24 09/03/24 History sitagliptin 25 mg tablet 25 mg PO DAILY diabetes 07/10/24 09/03/24 History cefdinir 300 mg capsule 300 mg PO BID #10 caps 07/13/24 09/03/24 Rx finasteride 5 mg tablet 5 mg PO DAILY #30 tabs 07/13/24 09/03/24 Rx tamsulosin 0.4 mg capsule 0.4 mg PO BID #60 caps 07/13/24 09/03/24 Rx ciprofloxacin HCl 500 mg tablet 500 mg PO BID #14 tabs 09/03/24 Unknown Rx (Cipro) Allergy/AdvReac Type Severity Reaction Status Date / Time amoxicillin (From Augmentin) Allergy Hives Verified 09/03/24 13:14 clavulanic acid (From Allergy Hives Verified 09/03/24 13:14 Augmentin) lisinopril Allergy Other Verified 09/03/24 13:14 Family History Other Diabetes Surgical History H/O shoulder replacement Social History Smoking Status: Heavy Smoker (>10/day) ROS ROS ED Constitutional Constitutional ED: Denies chills or fever(s) ENT ENT ED: Denies sore throat Cardiovascular Cardiovascular: Denies chest pain Respiratory/Chest Respiratory/Chest: Denies cough or dyspnea Gastrointestinal Gastrointestinal: Denies abdominal pain, diarrhea, nausea or vomiting Genitourinary Genitourinary ED: Denies hematuria Musculoskeletal Musculoskeletal: Denies back pain Integumentary Denies rash Neurologic Neurologic: Denies headache(s) Hematologic/Lymphatic Hematologic/Lymphatic: Denies easy bleeding or easy bruising EXAM Physical Exam Const Vital Signs: 11/13/24 22:02 11/13/24 23:22 Temperature 98.1 F 98 F Temperature Source Temporal Pulse Rate 86 81 Respiratory Rate 16 16 Blood Pressure 152/74 H 144/77 H Blood Pressure Mean 100 99 Pulse Ox 100 99 Oxygen Delivery Method Room Air Positive well nourished and well developed General Appearance ED: well developed; Negative for pallor HEENT HEENT Narrative: Normocephalic atraumatic Eyes PERRL and EOMs intact bilaterally General Eye ED: Negative for scleral icterus Neck supple Resp normal respiratory effort and clear to auscultation bilaterally Cardio regular rate and regular rhythm GI normal to inspection, nondistended, normoactive bowel sounds, non-tender, non-distended and no masses GI Narrative: No organomegaly to suggest acute urinary retention Auscultation: normoactive bowel sounds Palpation: soft Narrative: Normal circumcised male with indwelling Diego catheter in place. No blood or discharge noted from the urethral meatus. No surrounding erythema or warmth. No secondary soft tissue skin changes to suggest Tiffani's gangrene. No testicular masses noted. Back/Spine no CVA tenderness Extremity normal to inspection Neuro oriented x3, CN's II-XII intact bilaterally and no sensory deficits noted Sensorium / Orientation: alert Motor Exam: strength 5/5 throughout Psych mental status grossly normal Skin no rashes or lesions noted General Skin Exam: Negat (more content not included)... Normal [facility] CBC W/Diff, Automatedon 08-27 PATH REV Reviewed Normal [facility] Comment on above: Result Comment: Leuk ocytosis. Microcytic anemia. Clinical correlation necessary. Trent Corea M.D. 09/06/24 AMENDED REPORT 09/06/24 1421 PATH REV previously reported as: February Performed By: #### L 503.6005 #### [facility] [address] [place], [address] Culture, Blood (WB)on 2023 CUB Blood cultures x2, from two different sites No growth in 5 days. Normal [facility] Comment on above: Performed By: #### M 200.1000 ####[facility] [address] [place], [place], [id number] Urine Cultureon 09-05-2024 URC Escherichia coli [place] Count >100,000 Escherichia coli: REACTION Ampicillin Islt SEGUNDO 8 Ampicillin+Sulbac Islt SEGUNDO 4 S ceFAZolin Islt SEGUNDO <=4 S Cefepime Islt SEGUNDO <=0.12 S cefTRIAXone Islt SEGUNDO <=0.25 S Ciprofloxacin Islt SEGUNDO <=0.25 S B-Lactamase Extended Susc Islt NEG Gentamicin Islt SEGUNDO <=1 S Imipenem Islt SEGUNDO <=0.25 S levoFLOXacin Islt SEGUNDO <=0.12 S Nitrofurantoin Islt SEGUNDO <=16 S Pip+Tazo Islt SEGUNDO <=4 S Tobramycin Islt SEGUNDO <=1 S TMP SMX Islt SEGUNDO <=20 S Normal [facility] Comment on above: Performed By: #### M 100.2200 ####[facility] [address] [place], [place], [id number] URC Escherichia coli [place] Count >100,000 Escherichia coli: REACTION Ampicillin Islt SEGUNDO 8 Ampicillin+Sulbac Islt SEGUNDO 4 S ceFAZolin Islt SEGUNDO <=4 S Cefepime Islt SEGUNDO <=0.12 S cefTRIAXone Islt SEGUNDO <=0.25 S Ciprofloxacin Islt SEGUNDO <=0.25 S B-Lactamase Extended Susc Islt NEG Gentamicin Islt SEGUNDO <=1 S Imipenem Islt SEGUNDO <=0.25 S levoFLOXacin Islt SEGUNDO <=0.12 S Nitrofurantoin Islt SEGUNDO <=16 S Pip+Tazo Islt SEGUNDO <=4 S Tobramycin Islt SEGUNDO <=1 S TMP SMX Islt SEGUNDO <=20 S Normal [facility] Comment on above: Performed By: #### L 400.0001, M100.2200 ####[facility] [id number] [facility] [place], [place], [id number] Comprehensive Metabolic Prof [facility] 09-03-2024 Albumin [Mass/Vol] 2.8 g/dL Low 3.2-5.0 [facility] Comment on above: Performed By: #### L 722.6005 #### [facility] [address] [facility], [address] Albumin/Globulin [Mass ratio] 0.7 {ratio} Low 0.9-2.4 [facility] Comment on above: Performed By: #### L 503.6005 #### [facility] [address] [place], [address] ALK P 109 U/L Normal 45-117 [facility] Comment on above: Performed By: #### L 503.6005 #### [facility] [address] [facility] [place], [address] ALT [Catalytic activity/Vol] 10 U/L Low 16-61 [facility] Comment on above: Performed By: #### L [id number] #### [facility] [address] [facility] [place], [address] AST [Catalytic activity/Vol] 16 U/L Normal 15-37 [facility] Comment on above: Performed By: #### L 503.6005 #### [facility] [address] [place], [address] Bilirubin [Mass/Vol] 0.30 mg/dL Normal 0.20-1.00 [facility] Comment on above: Result Comment: For patients on eltrombopag therapy, use of Dimension [place] TBIL is not recommended. Performed By: #### L 503.6005 #### [facility] [address] [place], [address] BUN/CRE 17.1 RATIO Normal 10-20 [facility] Comment on above: Performed By: #### L 503.6005 #### [facility] [address] [place], [address] CA,Total 8.6 mg/dL Normal 8.5-10.1 [facility] Comment on above: Performed By: #### L 503.6005 #### [facility] [address] [place], [address] Chloride [Moles/Vol] 112 mmol/L High 98-107 [facility] Comment on above: Performed By: #### L 503.6005 #### [facility] [address] [place], [address] CO2 [Moles/Vol] 23.0 mmol/L Normal 21.0-32.0 [facility] Comment on above: Performed By: #### L 503.6005 #### [facility] [address] [place], [address] Creatinine [Mass/Vol] 1.87 mg/dL High 0.70-1.30 [facility] Comment on above: Result Comment: The validity of the calculated GFR GFRAA in patients over 70 years has not been determined. Clinical correlation is essential. Performed By: #### L 503.6005 #### [facility] [address] [place], [address] ECRCL 36.61 ml/min Normal [facility] Comment on above: Performed By: #### L 503.6005 #### [facility] [address] [place], [address] EST GFR - AA 45 mL/min Low >60 [facility] Comment on above: Result Comment: Afri can Dutch GFR Calc Performed By: #### L 503.6005 #### [facility] [address] [place], [address] GAP 6 Normal 5-15 [facility] Comment on above: Performed By: #### L 503.6005 #### [facility] [address] [place], [address] GFR/1.73 sq M.predicted among non-blacks MDRD (S/P/Bld) [Vol rate/Area] 37 mL/min/{1.73_m2} Low >60 [facility] Comment on above: Result Comment: Non- GFR Calc Performed By: #### L 503.6005 #### [facility] [address] [place], [address] Globulin (S) [Mass/Vol] 4.1 g/dL Normal 2.2-4.2 [facility] Comment on above: Performed By: #### L 503.6005 #### [facility] [address] [place], [address] Glucose [Mass/Vol] 241 mg/dL High 74-106 [facility] Comment on above: Result Comment: Gluc ose result greater than or equal to 200 mg/dL suggests DIABETES MELLITUS per A.D.A. criteria. Performed By: #### L 503.6005 #### [facility] [address] [place], [address] Potassium [Moles/Vol] 4.1 mmol/L Normal 3.5-5.1 [facility] Comment on above: Performed By: #### L 503.6005 #### [facility] [address] [place], [address] Sodium [Moles/Vol] 141 mmol/L Normal 136-145 [facility] Comment on above: Performed By: #### L 503.6005 #### [facility] [address] [place], [address] T PROT 6.9 g/dL Normal 6.4-8.2 [facility] Comment on above: Performed By: #### L 503.6005 #### [facility] [address] [place], [address] Urea nitrogen [Mass/Vol] 32 mg/dL High 7-18 [facility] Comment on above: Performed By: #### L 503.6005 #### [facility] [address] [place], [address] Emergency Department Summary on 09-03-2024 Emergency Department Summary [facility] Medical Records Department [address] [place] [address] Emergency Department Summary 09/03/24 MR#: [id number] Acct: [id number] Name: LORI LYNCH Rep #: [id number] : 1945 79 From: Franki Medina DO PCP: [facility] Status:[facility] ER Location: ED HPI History of Present Illness Chief Complaint: Complaint Narrative Narrative: Patient is an 79-year-old male with history of hypertension, hyperlipidemia who currently has a Diego catheter in place secondary to urinary retention June 2016. Patient had a CT scan with and without contrast of the abdomen and pelvis 2 days ago, this showed suspect cystitis and bilateral pyelonephritis as well as a superinfection of a 4 cm cyst in the anterior mid section of the right kidney producing a renal abscess. Secondary to this finding, he is here for evaluation. Patient states he has no back pain, no fever and chills. He is here for evaluation. He does see Dr. Mckoy [facility] Medical History Diabetes High cholesterol HTN (hypertension) Smoker Prostate enlargement Lung cancer Home Medications ???Medication ???Instructions ???Recorded ???Last Taken ???Type amlodipine 10 mg tablet 10 mg PO DAILY BP 07/10/24 09/03/24 History aspirin 81 mg chewable tablet 81 mg PO DAILY blood thinner 07/10/24 09/03/24 History atorvastatin 40 mg tablet 40 mg PO QPM cholesterol 07/10/24 09/02/24 History glipizide 10 mg tablet 10 mg PO BID diabetes 07/10/24 09/03/24 History insulin glargine 100 unit/mL (3 16 unit subcut QPM diabetes 07/10/24 09/02/24 History mL) subcutaneous pen pregabalin 75 mg capsule (Lyrica) 75 mg PO BID pain 07/10/24 09/03/24 History sitagliptin 25 mg tablet 25 mg PO DAILY diabetes 07/10/24 09/03/24 History cefdinir 300 mg capsule 300 mg PO BID #10 caps 07/13/24 09/03/24 Rx finasteride 5 mg tablet 5 mg PO DAILY #30 tabs 07/13/24 09/03/24 Rx tamsulosin 0.4 mg capsule 0.4 mg PO BID #60 caps 07/13/24 09/03/24 Rx ciprofloxacin HCl 500 mg tablet 500 mg PO BID #14 tabs 09/03/24 Unknown Rx (Cipro) Allergy/AdvReac Type Severity Reaction Status Date / Time amoxicillin (From Augmentin) Allergy Hives Verified 09/03/24 13:14 clavulanic acid (From Allergy Hives Verified 09/03/24 13:14 Augmentin) lisinopril Allergy Other Verified 09/03/24 13:14 Family History Other Diabetes Surgical History H/O shoulder replacement Social History Smoking Status: Heavy Smoker (>10/day) ROS ROS ED ROS Narrative Constitutional: Negative for fever, chills, weight loss, weakness Eyes: Negative for vision loss, vision change, double vision ENT: Negative for any sore throat, ear pain, congestion Cardiovascular: Negative for any chest pain, tightness, palpitations Respiratory: Negative for any cough, sputum production, hemoptysis, dyspnea, dyspnea on exertion, orthopnea Gastrointestinal: Negative for any abdominal pain, nausea, vomiting, diarrhea, constipation, blood in stool, blood in vomit : Negative for any urinary frequency, dysuria, retention, blood in urine. Patient does have a Diego catheter Muscle skeletal: Negative for any neck pain, back pain Neurological: Negative for any headache, syncope, dizziness Skin: Negative for any rashes, itching, abrasions, lacerations Psychiatric: Negative for any depression, anxiety, stress, suicidal ideation, homicidal ideation Hematologic: Negative for any excessive bruising, easy bleeding EXAM Physical Exam Narrative Exam Narrative: Vital signs reviewed. Patient appears to be in no obvious distress HEET: Head normocephalic atraumatic, TMs clear bilaterally. Posterior pharynx is clear, moist mucous membranes. Nares clear bilaterally. Neck: Supple with no lymphadenopathy or tenderness. No signs of meningismus. Cardiac: Regular rate and rhythm no murmurs gallops or rubs, equal peripheral pulses bilaterally. Respiratory: Lungs clear to auscultation bilaterally. No chest tenderness. Abdomen: Soft, nontender, nondistended. No abdominal bruit or pulsatile masses. No hepatosplenomegaly Extremities: No peripheral edema, no signs of gross trauma or deformity. Active full range of motion of all extremities. Neuro: Cranial nerves II through XII intact, no focal neurological deficits. Skin: Clean dry and intact with no rash, purpura, petechiae, vesicles or pustules. Backs/flank: No CVA tenderness, no midline spinal tenderness, no deformity. Psych: Normal mood and affect. No SI, HI or acute psychosis. : Patient is a Diego catheter in place in the leg bag, urine is yellow, clear Const Vital Signs: 09/03/24 13:14 09/03/24 13:2 (more content not included)... Normal [facility] Lactic Acidon 09-03-2024 Lactate [Moles/Vol] 1.2 mmol/L Normal 0.4-1.9 [facility] Comment on above: Order Comment: Y Performed By: #### L 503.6005 #### [facility] [address] [place], [address] Partial Thromboplast Timeon 09-03-2024 aPTT Coag (Bld) [Time] 28.0 s Normal 24.1-36.2 [facility] Comment on above: Order Comment: REDRA W. PREVIOUS SPECIMEN REJECTED DUE TOSPECIMEN BEING HEMOLYZED. 09/03/24 143 Jd Reyes. Performed By: #### L 300.3900, L300.4310 ####[facility] [address] [place], [address] Prothrombin Time w/INRon INR Coag (PPP) [Relative time] 1.1 {INR} Normal [facility] Comment on above: Order Comment: REDRA W. PREVIOUS SPECIMEN REJECTED DUE TOSPECIMEN BEING HEMOLYZED. 09/03/241432 Jd Reyes. Performed By: #### L 300.3900, L300.4310 ####[facility] [address] [place], [address] PT Coag (PPP) [Time] 14.6 s Normal 11.7-14.9 [facility] Comment on above: Order Comment: REDRA W. PREVIOUS SPECIMEN REJECTED DUE TOSPECIMEN BEING HEMOLYZED. 09/03/241432 Jd Reyes. Performed By: #### L 300.3900, L300.4310 ####[facility] [address] [place], [address] INR Normal [facility] Comment on above: Result Comment: This specimen has been REJECTED due to Laboratory criteria: Hemolyzed. ED STAFF has been notified of need of recollection. 09/03/241431 Jd Reyes Performed By: #### L 503.6005 #### [facility] [address] [place], [address] PROTIME Normal 11.7-14.9 [facility] Comment on above: Result Comment: This specimen has been REJECTED due to Laboratory criteria: Hemolyzed. ED STAFF has been notified of need of recollection. 09/03/24 1432 Jd Reyes Performed By: #### L 503.6005 #### [facility] [address] [place], [address] Urinalysis, Completeon 09-03 BACTERIA 1+ /hpf Normal None Seen [facility] Comment on above: Order Comment: Micro scopic field is filled. Other elements may beobscured.CATHETER SPECIMEN Performed By: #### L 400.0001, M100.2200 ####[facility] [address] [place], [address] RBC 5-10 SEEN Normal 0-5 [facility] Comment on above: Order Comment: Micro scopic field is filled. Other elements may beobscured.CATHETER SPECIMEN Performed By: #### L 400.0001, M100.2200 ####[facility] [address] [place], [address] WBC >100 SEEN Normal 0-5 [facility] Comment on above: Order Comment: Micro scopic field is filled. Other elements may beobscured.CATHETER SPECIMEN Performed By: #### L 400.0001, M100.2200 ####[facility] [address] [place], [address] EPI,SQUAMOUS 0 SEEN Normal 0-5 [facility] Comment on above: Order Comment: Micro scopic field is filled. Other elements may beobscured.CATHETER SPECIMEN Performed By: #### L 400.0001, M100.2200 ####[facility] [address] [place], [address] Mucus Ql (Urine sed) 0 SEEN Normal [facility] Comment on above: Order Comment: Micro scopic field is filled. Other elements may beobscured.CATHETER SPECIMEN Performed By: #### L 400.0001, M100.2200 ####[facility] [address] [place], [address] CREATININE FINGERSTICKon Creatinine [Mass/Vol] 2.5 mg/dL High 0.70-1.30 [facility] Comment on above: Performed By: #### L 503.6005 #### [facility] [address] [place], [place], [address] GFR/1.73 sq M.predicted among non-blacks MDRD (S/P/Bld) [Vol rate/Area] 27.0000 mL/min/{1.73_m2} Low >60 [facility] Comment on above: Performed By: #### L 503.6005 #### [facility] [address] [place], [place], [address] CT Abd/Pelvis W/WO Contrasto 08-31-2024 CT Abd/Pelvis W/WO Contrast [facility] Services [address] [place], [place] [address] CT Abd/Pelvis W/WO Contrast MR#: [id number] Acct: [id number] Name: LORI LYNCH Rep #: [id number] : 1945 M 79 From: Sebas Alaniz MD PCP: [facility] Status: REG CLI Study: CT Abd/Pelvis W/WO Contrast Date of Exam: 03/19 Exam# [id number] Ordering Dr: NEDRA,JANUARY ADDENDUM by Dr. Sebas Alaniz MD on 09/01/24 at 1609 [id number] STUDY: CT ABDOMEN AND PELVIS WITH AND WITHOUT CONTRAST REASON FOR EXAM: Male, 79 years old. HYDRONEPHROSIS/HEMORRH AGIC RENAL MASS/THICK WALLED URETER RADIATION DOSAGE (If Supplied By Facility): CTDIvol = ( 23.47 ) mGy, DLP = ( 4190.26 ) mGycm TECHNIQUE: Transaxial images were obtained from the dome of the diaphragm to the symphysis pubis without oral contrast. IV 100mL Isovue-300 was administered. Sagittal and coronal images were reconstructed. Individualized dose optimization techniques were used for this CT. COMPARISON: 07/09/2024 FINDINGS: The visualized lung bases are unremarkable. The visualized portions of the heart are within normal limits. Normal liver. Normal gallbladder and extrahepatic biliary system. Normal spleen. Normal pancreas. Normal bilateral adrenal glands. Multiple bilateral small renal cysts several of which are of increased attenuation (hemorrhagic or proteinaceous). Partially calcified scar in the midsection of left kidney.. A 4 cm cyst in the anterior cortex of the midsection of right kidney demonstrates a peripheral enhancing wall and contains a bubble of gas worrisome for renal abscess/infected cyst. There is mild bilateral hydronephrosis and ureteral dilatation to the bladder with stranding of the perinephric and periureteral fat worrisome for obstruction and possible superinfection. No obstructing stone. Normal visualized stomach. Normal small intestine. There are multiple colonic diverticula consistent with diverticulosis. There is non-visualization of the appendix. There is diffuse atherosclerotic calcification of the abdominal aorta, without a demonstrated aneurysm. Normal inferior vena cava. Normal retroperitoneum. Diego catheter with retention balloon within the distal prostatic urethra. Collapsed bladder with thickening of the bladder wall and stranding surrounding fat worrisome for cystitis. There is enlargement of the prostate gland. Normal abdominal wall. Mild dextroscoliosis lumbar spine with degenerative disc disease. 09/01/24 1609 Date cc: JANUARY [facility] * Signed ADDENDUM by Dr. Sebas Alaniz MD on 09/01/[address]/CT Abd/Pelvis W/WO Contrast IMPRESSION: Diego catheter with retention balloon within the distal prostatic urethra. Suspect cystitis and bilateral pyelonephritis as well as superinfection of a 4 cm cyst in the anterior midsection of the right kidney producing a renal abscess. Sigmoid diverticulosis without diverticulitis. N.B. : The above Results were Read Back by Sebas Alaniz MD to Chasidy Cherry OT, and understanding confirmed on 09/03/2024 09:35:50 (ET). Electronically Signed: Sebas Alaniz MD at 16:09 EST , 09/03/24941 Date cc: JANUARY [facility]; [facility] * Signed We are attempting to reach an attending provider to discuss findings. An addendum with communication details will be sent when the communication is complete. [id number] STUDY: CT ABDOMEN AND PELVIS WITH AND WITHOUT CONTRAST REASON FOR EXAM: Male, 79 years old. HYDRONEPHROSIS/HEMORRH AGIC RENAL MASS/THICK WALLED URETER RADIATION DOSAGE (If Supplied By Facility): CTDIvol = ( 23.47 ) mGy, DLP = ( 4190.26 ) mGycm TECHNIQUE: Transaxial images were obtained from the dome of the diaphragm to the symphysis pubis without oral contrast. IV 100mL Isovue-300 was administered. Sagittal and coronal images were reconstructed. Individualized dose optimization techniques were used for this CT. COMPARISON: 07/09/2024 FINDINGS: The visualized lung bases are unremarkable. The visualized portions of the heart are within normal limits. Normal liver. Normal gallbladder and extrahepatic biliary system. Normal spleen. Normal pancreas. Normal bilateral adrenal glands. Multiple bilateral small renal cysts several of which are of increased attenuation (hemorrhagic or proteinaceous). Partially calcified scar in the midsection of left kidney.. A 4 cm cyst in the anterior cortex of the midsection of right kidney demonstrates a peripheral enhancing wall and (more content not included)... Normal [facility] PET/CT Tumor Base -Thigh Sub son 08-24-2024 PET/CT Tumor Base -Thigh Subs [facility] Imaging Services [address] [place] [address] PET/CT Tumor Base -Thigh Subs MR#: [id number] Acct: [id number] Name: LORI LYNCH Rep #: [id number] : 1945 M 79 From: Sebas Valladares PCP: [facility] Status: REG CLI Study: PET/CT Tumor Base -Thigh Subs Date of Exam: Exam# [id number] Ordering Dr: MIREYA SOLIS [id number] EXAMINATION: FDG PET-CT INDICATIONS: An 79-year-old male with a history of primary lung carcinoma presenting for restaging examination. COMPARISON EXAMINATION: None available. INDEX LESION SIZE SUV INTERPRETATION NEW: Right kidney circumferential abnormality 58.7 mm 4.3 May necessitate histopathologic sampling secondary to the quantitative degree of uptake. PERSISTENT: Right lung field linear 1.8 comp to 1.7 Quantitative criteria for viable neoplasm are not fulfilled. TECHNIQUE: Following the intravenous administration of 14.3 mCi of F-18 deoxyglucose via the left upper extremity, multiplanar image acquisitions of the head, neck, chest, abdomen and pelvis to level of mid-thigh, lower extremities obtained at one hour post radiopharmaceutical administration contemporaneously interpreted with the current CT of the head, neck, chest, abdomen and pelvis to level of mid-thigh, lower extremities dated 08/24/24 via coregistration reveal: SERUM GLUCOSE LEVEL: 185 mg/dl. HEIGHT: 68 inches. WEIGHT: 220 lbs. FINDINGS: Head/Neck: There is no evidence of abnormal increased glucose metabolism in the pharyngeal mucosal space, parapharyngeal space, bilateral-lateral and anterior neck, hypopharynx and distribution of the laryngeal structures. The visualized portion of the cerebral cortical-subcortical structures demonstrate symmetric and preserved glucose metabolism. CHEST: A linear increase in radiopharmaceutical concentration is redefined in the right upper lung field, right upper lobe. The current calculated maximum standard uptake value is 1.8 compared to 1.7. Quantitative criteria for viable neoplasm are not fulfilled. Prominent radiopharmaceutical concentration is identified in the left ventricular myocardium commensurate with the [place]. Pertinent chest CT findings are as follows. Review of CT of the thorax dated 01/20/24 demonstrates no significant interval change. Abdomen/Pelvis: Newly visualized increased tracer uptake is noted in the region of the right renal unit circumferential in presentation with central photopenia. The calculated maximum standard uptake value is 4.3. The maximum axial diameter of the circumferential density is 58.7 mm. There appears to be gas within the context of the central photopenia. Normal physiologic distribution of the radiopharmaceutical is apparent in the hepatic (3.4) and splenic parenchyma, both renal units, bladder and visualized intestinal tract. Diffuse radiopharmaceutical concentration is noted in all four quadrants of the abdomen and pelvis. Pertinent abdomen and pelvis CT findings are as follows. The previously defined morphologic-anatomic changes described on the prior FDG PET-CT report dated 01/20/24, are essentially unchanged on the current examination. Skeletal: Degenerative changes are noted in the cervical, thoracic and lumbar spine. PET/PET/CT Tumor Base -Thigh Subs IMPRESSION: 1. The circumferential increase in radiopharmaceutical concentration which appears associated with the right renal unit may represent an inflammatory process (abscess formation). In view of the quantitative degree of uptake, histopathologic sampling is recommended. 2. Facilitated uptake noted in the right lung field, linear in presentation does not fulfill quantitative criteria for neoplastic transformation. 3. Overall, compared to the prior FDG PET CT study dated 01/20/24, the circumferential kinetic focus in the right upper abdomen warrants further clinical investigation. Electronic Signature Sebas Pleitez D.O. Accurate Quantification of SUVs for this report are calculated using the exclusive [employer], (U.S. Patent No. [phone] patent [phone] ). Standardization and correction of the FDG SUV metric exclusively available with [employer] intellectual property, allow for vendor non-specific objective quantitative sequential FDG PET-CT comparison and otherwise unobtainable optimization of the sensitivity and specificity of the examination. [email or web address] Electronically Signed: Sebas Pleitez DO at 8:03 EDT , CC: MIREYA SOLIS; [facility] [employer] Alarm Installer: Signed Normal [facility] Chest without Contraston Chest without Contrast [facility] Imaging Services [address] [address] Chest without Contrast MR#: [id number] Acct: [id number] Name: LORI LYNCH Rep #: [id number] : 1945 M 78 From: Noam Cueva PCP: [facility] Status: REG CLI Study: Chest without Contrast Date of Exam: 07/30/24 Exam# [id number] Ordering Dr: MIREYA PARK [id number] STUDY: CT Chest W/O Contrast Injection 08/01/2024 7:04 PM REASON FOR EXAM: Male, 78 years old. Malignant neoplasm of upper lobe, right bronchus or lung Individualized dose optimization techniques were used for this CT. TECHNIQUE: Transaxial imaging was performed without contrast material. COMPARISON: PET 3..24 FINDINGS: There are degenerative changes of the shoulders. There is no pneumothorax. There is no demonstrated pleural abnormality. Acute anterior right second rib fracture. Right upper lobe mass is ovoid and measures 46 x 14 mm. This extends to the pleural surface and to the level of the second rib. Pathologic fracture cannot be excluded. 5 mm spiculated left upper lobe nodule. Multiple new spiculated densities in the right upper lobe measuring 3 mm. There are calcifications of the coronary arteries. Normal mediastinum. Normal hilar regions. Normal pulmonary arteries. There is atherosclerotic calcification of the aortic arch with tortuosity and elongation of the aortic arch and descending thoracic aorta. There are multi-level degenerative changes of the thoracic spine. Stable complex bilateral renal lesions. These do not qualify for simple cysts. CT/Chest without Contrast IMPRESSION: Masslike lesion is again identified in the right upper lobe. This is concerning for neoplasm. It extends to the right upper lobe pleural surface into the second rib. There is a possible pathologic fracture of the right anterior second rib. Development of multiple apical nodules concerning for metastatic disease. Electronically Signed: Noam Hill MD at 19:10 EDT , CC: MIREYA PARK; [facility] [employer] Alarm Installer: Signed Normal [facility] Basic Metabolic Profile (BMP )on 07-20-2024 BUN Normal 7-18 [facility] Comment on above: Result Comment: Canc elled via OM: Order cancelled - Patient discharged Performed By: #### L 503.6005 #### [facility] [address] [place], [address] BUN/CRE Normal 10-20 [facility] Comment on above: Result Comment: Canc elled via OM: Order cancelled - Patient discharged Performed By: #### L 503.6005 #### [facility] [address] [place], [address] CA,Total Normal 8.5-10.1 [facility] Comment on above: Result Comment: Canc elled via OM: Order cancelled - Patient discharged Performed By: #### L 503.6005 #### [facility] [address] [place], [address] CL Normal 98-107 [facility] Comment on above: Result Comment: Canc elled via OM: Order cancelled - Patient discharged Performed By: #### L 503.6005 #### [facility] [address] [place], [address] CO2 Normal 21.0-32.0 [facility] Comment on above: Result Comment: Canc elled via OM: Order cancelled - Patient discharged Performed By: #### L 503.6005 #### [facility] [address] [place], [address] CREAT,SERUM Normal 0.70-1.30 [facility] Comment on above: Result Comment: Canc elled via OM: Order cancelled - Patient discharged Performed By: #### L 503.6005 #### [facility] [address] [place], [address] EST GFR Normal >60 [facility] Comment on above: Result Comment: Canc elled via OM: Order cancelled - Patient discharged Performed By: #### L 503.6005 #### [facility] [address] [place], [address] EST GFR - AA Normal >60 [facility] Comment on above: Result Comment: Canc elled via OM: Order cancelled - Patient discharged Performed By: #### L 503.6005 #### [facility] [address] [place], [address] GAP Normal 5-15 [facility] Comment on above: Result Comment: Canc elled via OM: Order cancelled - Patient discharged Performed By: #### L 503.6005 #### [facility] [address] [place], [address] GLU Normal 74-106 [facility] Comment on above: Result Comment: Canc elled via OM: Order cancelled - Patient discharged Performed By: #### L 503.6005 #### [facility] [address] [place], [address] Potassium Normal 3.5-5.1 [facility] Comment on above: Result Comment: Canc elled via OM: Order cancelled - Patient discharged Performed By: #### L 503.6005 #### [facility] [address] [place], [address] Basic Metabolic Profile (BMP) Normal 136-145 [facility] Comment on above: Result Comment: Canc elled via OM: Order cancelled - Patient discharged Performed By: #### L 503.6005 #### [facility] [address] [place], [address] CBC W/Diff, Automatedon 09-2 Absolute Neut Normal 2.0-7.7 [facility] Comment on above: Result Comment: Canc elled via OM: Order cancelled - Patient discharged Performed By: #### L 503.6005 #### [facility] [address] [place], [address] HCT Normal 40-54 [facility] Comment on above: Result Comment: Canc elled via OM: Order cancelled - Patient discharged Performed By: #### L 503.6005 #### [facility] [address] [place], [address] HGB Normal 13.0-16.5 [facility] Comment on above: Result Comment: Canc elled via OM: Order cancelled - Patient discharged Performed By: #### L 503.6005 #### [facility] [address] [place], [address] MCH Normal 27.0-32.0 [facility] Comment on above: Result Comment: Canc elled via OM: Order cancelled - Patient discharged Performed By: #### L 503.6005 #### [facility] [address] [place], [address] MCHC Normal 32-36 [facility] Comment on above: Result Comment: Canc elled via OM: Order cancelled - Patient discharged Performed By: #### L 503.6005 #### [facility] [address] [place], [address] MCV Normal 80-94 [facility] Comment on above: Result Comment: Canc elled via OM: Order cancelled - Patient discharged Performed By: #### L 503.6005 #### [facility] [address] [place], [address] NEUT% Normal 47-70 [facility] Comment on above: Result Comment: Canc elled via OM: Order cancelled - Patient discharged Performed By: #### L 503.6005 #### [facility] [address] [place], [address] PLT Normal 150-450 [facility] Comment on above: Result Comment: Canc elled via OM: Order cancelled - Patient discharged Performed By: #### L 503.6005 #### [facility] [address] [place], [address] RBC Normal 4.6-6.2 [facility] Comment on above: Result Comment: Canc elled via OM: Order cancelled - Patient discharged Performed By: #### L 503.6005 #### [facility] [address] [place], [address] RDW CV Normal 11.6-14.6 [facility] Comment on above: Result Comment: Canc elled via OM: Order cancelled - Patient discharged Performed By: #### L 503.6005 #### [facility] [address] [place], [address] RDW SD Normal 35.1-43.9 [facility] Comment on above: Result Comment: Canc elled via OM: Order cancelled - Patient discharged Performed By: #### L 503.6005 #### [facility] [address] [place], [address] WBC Normal 4.4-11.0 [facility] Comment on above: Result Comment: Canc elled via OM: Order cancelled - Patient discharged Performed By: #### L 503.6005 #### [facility] [address] [place], [address] Basic Metabolic Profile (BMP )on 07-19-2024 BUN Normal 7-18 [facility] Comment on above: Result Comment: Canc elled via OM: Order cancelled - Patient discharged Performed By: #### L 503.6005 #### [facility] [address] [place], [address] BUN/CRE Normal 10-20 [facility] Comment on above: Result Comment: Canc elled via OM: Order cancelled - Patient discharged Performed By: #### L 503.6005 #### [facility] [address] [place], [address] CA,Total Normal 8.5-10.1 [facility] Comment on above: Result Comment: Canc elled via OM: Order cancelled - Patient discharged Performed By: #### L 503.6005 #### [facility] [address] [place], [address] CL Normal 98-107 [facility] Comment on above: Result Comment: Canc elled via OM: Order cancelled - Patient discharged Performed By: #### L 503.6005 #### [facility] [address] [place], [place], [address] CO2 Normal 21.0-32.0 [facility] Comment on above: Result Comment: Canc elled via OM: Order cancelled - Patient discharged Performed By: #### L 503.6005 #### [facility] [address] [place], [address] CREAT,SERUM Normal 0.70-1.30 [facility] Comment on above: Result Comment: Canc elled via OM: Order cancelled - Patient discharged Performed By: #### L 503.6005 #### [facility] [address] [place], [address] EST GFR Normal >60 [facility] Comment on above: Result Comment: Canc elled via OM: Order cancelled - Patient discharged Performed By: #### L 503.6005 #### [facility] [address] [place], [address] EST GFR - AA Normal >60 [facility] Comment on above: Result Comment: Canc elled via OM: Order cancelled - Patient discharged Performed By: #### L 503.6005 #### [facility] [address] [place], [address] GAP Normal 5-15 [facility] Comment on above: Result Comment: Canc elled via OM: Order cancelled - Patient discharged Performed By: #### L 503.6005 #### [facility] [address] [place], [address] GLU Normal 74-106 [facility] Comment on above: Result Comment: Canc elled via OM: Order cancelled - Patient discharged Performed By: #### L 503.6005 #### [facility] [address] [place], [address] Potassium Normal 3.5-5.1 [facility] Comment on above: Result Comment: Canc elled via OM: Order cancelled - Patient discharged Performed By: #### L 503.6005 #### [facility] [address] [place], [address] Basic Metabolic Profile (BMP) Normal 136-145 [facility] Comment on above: Result Comment: Canc elled via OM: Order cancelled - Patient discharged Performed By: #### L 503.6005 #### [facility] [address] [place], [address] CBC W/Diff, Automatedon 09-2 Absolute Neut Normal 2.0-7.7 [facility] Comment on above: Result Comment: Canc elled via OM: Order cancelled - Patient discharged Performed By: #### L 503.6005 #### [facility] [address] [place], [address] HCT Normal 40-54 [facility] Comment on above: Result Comment: Canc elled via OM: Order cancelled - Patient discharged Performed By: #### L 503.6005 #### [facility] [address] [place], [address] HGB Normal 13.0-16.5 [facility] Comment on above: Result Comment: Canc elled via OM: Order cancelled - Patient discharged Performed By: #### L 503.6005 #### [facility] [address] [place], [address] MCH Normal 27.0-32.0 [facility] Comment on above: Result Comment: Canc elled via OM: Order cancelled - Patient discharged Performed By: #### L 503.6005 #### [facility] [address] [place], [address] MCHC Normal 32-36 [facility] Comment on above: Result Comment: Canc elled via OM: Order cancelled - Patient discharged Performed By: #### L 503.6005 #### [facility] [address] [place], [address] MCV Normal 80-94 [facility] Comment on above: Result Comment: Canc elled via OM: Order cancelled - Patient discharged Performed By: #### L 503.6005 #### [facility] [address] [place], [address] NEUT% Normal 47-70 [facility] Comment on above: Result Comment: Canc elled via OM: Order cancelled - Patient discharged Performed By: #### L 503.6005 #### [facility] [address] [place], [address] PLT Normal 150-450 [facility] Comment on above: Result Comment: Canc elled via OM: Order cancelled - Patient discharged Performed By: #### L 503.6005 #### [facility] [address] [place], [address] RBC Normal 4.6-6.2 [facility] Comment on above: Result Comment: Canc elled via OM: Order cancelled - Patient discharged Performed By: #### L 503.6005 #### [facility] [address] [place], [address] RDW CV Normal 11.6-14.6 [facility] Comment on above: Result Comment: Canc elled via OM: Order cancelled - Patient discharged Performed By: #### L 503.6005 #### [facility] [address] [place], [address] RDW SD Normal 35.1-43.9 [facility] Comment on above: Result Comment: Canc elled via OM: Order cancelled - Patient discharged Performed By: #### L 503.6005 #### [facility] [address] [place], [address] WBC Normal 4.4-11.0 [facility] Comment on above: Result Comment: Canc elled via OM: Order cancelled - Patient discharged Performed By: #### L 503.6005 #### [facility] [address] [place], [address] Basic Metabolic Profile (BMP )on 07-18-2024 BUN Normal 7-18 [facility] Comment on above: Result Comment: Canc elled via OM: Order cancelled - Patient discharged Performed By: #### L 400.0001 #### [facility] [address] [place], [address] BUN/CRE Normal 10-20 [facility] Comment on above: Result Comment: Canc elled via OM: Order cancelled - Patient discharged Performed By: #### L 400.0001 #### [facility] [address] [place], [address] CA,Total Normal 8.5-10.1 [facility] Comment on above: Result Comment: Canc elled via OM: Order cancelled - Patient discharged Performed By: #### L 400.0001 #### [facility] [address] [place], [address] CL Normal 98-107 [facility] Comment on above: Result Comment: Canc elled via OM: Order cancelled - Patient discharged Performed By: #### L 400.0001 #### [facility] [address] [place], [address] CO2 Normal 21.0-32.0 [facility] Comment on above: Result Comment: Canc elled via OM: Order cancelled - Patient discharged Performed By: #### L 400.0001 #### [facility] [address] [place], [address] CREAT,SERUM Normal 0.70-1.30 [facility] Comment on above: Result Comment: Canc elled via OM: Order cancelled - Patient discharged Performed By: #### L 400.0001 #### [facility] [address] [place], [address] EST GFR Normal >60 [facility] Comment on above: Result Comment: Canc elled via OM: Order cancelled - Patient discharged Performed By: #### L 400.0001 #### [facility] [address] [place], [address] EST GFR - AA Normal >60 [facility] Comment on above: Result Comment: Canc elled via OM: Order cancelled - Patient discharged Performed By: #### L 400.0001 #### [facility] [address] [place], [address] GAP Normal 5-15 [facility] Comment on above: Result Comment: Canc elled via OM: Order cancelled - Patient discharged Performed By: #### L 400.0001 #### [facility] [address] [place], [address] GLU Normal 74-106 [facility] Comment on above: Result Comment: Canc elled via OM: Order cancelled - Patient discharged Performed By: #### L 400.0001 #### [facility] [address] [place], [address] Potassium Normal 3.5-5.1 [facility] Comment on above: Result Comment: Canc elled via OM: Order cancelled - Patient discharged Performed By: #### L 400.0001 #### [facility] [address] [place], [address] Basic Metabolic Profile (BMP) Normal 136-145 [facility] Comment on above: Result Comment: Canc elled via OM: Order cancelled - Patient discharged Performed By: #### L 400.0001 #### [facility] [address] [place], [address] CBC W/Diff, Automatedon 09- Absolute Neut Normal 2.0-7.7 [facility] Comment on above: Result Comment: Canc elled via OM: Order cancelled - Patient discharged Performed By: #### L 400.0001 #### [facility] [address] [place], [address] HCT Normal 40-54 [facility] Comment on above: Result Comment: Canc elled via OM: Order cancelled - Patient discharged Performed By: #### L 400.0001 #### [facility] [address] [place], [address] HGB Normal 13.0-16.5 [facility] Comment on above: Result Comment: Canc elled via OM: Order cancelled - Patient discharged Performed By: #### L 400.0001 #### [facility] [address] [place], [address] MCH Normal 27.0-32.0 [facility] Comment on above: Result Comment: Canc elled via OM: Order cancelled - Patient discharged Performed By: #### L 400.0001 #### [facility] [address] [place], [address] MCHC Normal 32-36 [facility] Comment on above: Result Comment: Canc elled via OM: Order cancelled - Patient discharged Performed By: #### L 400.0001 #### [facility] [address] [place], [address] MCV Normal 80-94 [facility] Comment on above: Result Comment: Canc elled via OM: Order cancelled - Patient discharged Performed By: #### L 400.0001 #### [facility] [address] [place], [address] NEUT% Normal 47-70 [facility] Comment on above: Result Comment: Canc elled via OM: Order cancelled - Patient discharged Performed By: #### L 400.0001 #### [facility] [address] [place], [address] PLT Normal 150-450 [facility] Comment on above: Result Comment: Canc elled via OM: Order cancelled - Patient discharged Performed By: #### L 400.0001 #### [facility] [address] [place], [address] RBC Normal 4.6-6.2 [facility] Comment on above: Result Comment: Canc elled via OM: Order cancelled - Patient discharged Performed By: #### L 400.0001 #### [facility] [address] [place], [address] RDW CV Normal 11.6-14.6 [facility] Comment on above: Result Comment: Canc elled via OM: Order cancelled - Patient discharged Performed By: #### L 400.0001 #### [facility] [address] [place], [address] RDW SD Normal 35.1-43.9 [facility] Comment on above: Result Comment: Canc elled via OM: Order cancelled - Patient discharged Performed By: #### L 400.0001 #### [facility] [address] [place], [address] WBC Normal 4.4-11.0 [facility] Comment on above: Result Comment: Canc elled via OM: Order cancelled - Patient discharged Performed By: #### L 400.0001 #### [facility] [address] [place], [address] Basic Metabolic Profile (BMP )on 07-17-2024 BUN Normal 7-18 [facility] Comment on above: Result Comment: Canc elled via OM: Order cancelled - Patient discharged Performed By: #### L 400.0001 #### [facility] [address] [place], [address] BUN/CRE Normal 10-20 [facility] Comment on above: Result Comment: Canc elled via OM: Order cancelled - Patient discharged Performed By: #### L 400.0001 #### [facility] [address] [place], [address] CA,Total Normal 8.5-10.1 [facility] Comment on above: Result Comment: Canc elled via OM: Order cancelled - Patient discharged Performed By: #### L 400.0001 #### [facility] [address] [place], [address] CL Normal 98-107 [facility] Comment on above: Result Comment: Canc elled via OM: Order cancelled - Patient discharged Performed By: #### L 400.0001 #### [facility] [address] [place], [address] CO2 Normal 21.0-32.0 [facility] Comment on above: Result Comment: Canc elled via OM: Order cancelled - Patient discharged Performed By: #### L 400.0001 #### [facility] [address] [place], [address] CREAT,SERUM Normal 0.70-1.30 [facility] Comment on above: Result Comment: Canc elled via OM: Order cancelled - Patient discharged Performed By: #### L 400.0001 #### [facility] [address] [place], [address] EST GFR Normal >60 [facility] Comment on above: Result Comment: Canc elled via OM: Order cancelled - Patient discharged Performed By: #### L 400.0001 #### [facility] [address] [place], [address] EST GFR - AA Normal >60 [facility] Comment on above: Result Comment: Canc elled via OM: Order cancelled - Patient discharged Performed By: #### L 400.0001 #### [facility] [address] [place], [address] GAP Normal 5-15 [facility] Comment on above: Result Comment: Canc elled via OM: Order cancelled - Patient discharged Performed By: #### L 400.0001 #### [facility] [address] [place], [address] GLU Normal 74-106 [facility] Comment on above: Result Comment: Canc elled via OM: Order cancelled - Patient discharged Performed By: #### L 400.0001 #### [facility] [address] [place], [address] Potassium Normal 3.5-5.1 [facility] Comment on above: Result Comment: Canc elled via OM: Order cancelled - Patient discharged Performed By: #### L 400.0001 #### [facility] [address] [place], [address] Basic Metabolic Profile (BMP) Normal 136-145 [facility] Comment on above: Result Comment: Canc elled via OM: Order cancelled - Patient discharged Performed By: #### L 400.0001 #### [facility] [address] [place], [address] CBC W/Diff, Automatedon 09-2 Absolute Neut Normal 2.0-7.7 [facility] Comment on above: Result Comment: Canc elled via OM: Order cancelled - Patient discharged Performed By: #### L 400.0001 #### [facility] [address] [place], [address] HCT Normal 40-54 [facility] Comment on above: Result Comment: Canc elled via OM: Order cancelled - Patient discharged Performed By: #### L 400.0001 #### [facility] [address] [place], [address] HGB Normal 13.0-16.5 [facility] Comment on above: Result Comment: Canc elled via OM: Order cancelled - Patient discharged Performed By: #### L 400.0001 #### [facility] [address] [place], [address] MCH Normal 27.0-32.0 [facility] Comment on above: Result Comment: Canc elled via OM: Order cancelled - Patient discharged Performed By: #### L 400.0001 #### [facility] [address] [place], [address] MCHC Normal 32-36 [facility] Comment on above: Result Comment: Canc elled via OM: Order cancelled - Patient discharged Performed By: #### L 400.0001 #### [facility] [address] [place], [address] MCV Normal 80-94 [facility] Comment on above: Result Comment: Canc elled via OM: Order cancelled - Patient discharged Performed By: #### L 400.0001 #### [facility] [address] [place], [address] NEUT% Normal 47-70 [facility] Comment on above: Result Comment: Canc elled via OM: Order cancelled - Patient discharged Performed By: #### L 400.0001 #### [facility] [address] [place], [address] PLT Normal 150-450 [facility] Comment on above: Result Comment: Canc elled via OM: Order cancelled - Patient discharged Performed By: #### L 400.0001 #### [facility] [address] [place], [address] RBC Normal 4.6-6.2 [facility] Comment on above: Result Comment: Canc elled via OM: Order cancelled - Patient discharged Performed By: #### L 400.0001 #### [facility] [address] [place], [address] RDW CV Normal 11.6-14.6 [facility] Comment on above: Result Comment: Canc elled via OM: Order cancelled - Patient discharged Performed By: #### L 400.0001 #### [facility] [address] [place], [address] RDW SD Normal 35.1-43.9 [facility] Comment on above: Result Comment: Canc elled via OM: Order cancelled - Patient discharged Performed By: #### L 400.0001 #### [facility] [address] [place], [address] WBC Normal 4.4-11.0 [facility] Comment on above: Result Comment: Canc elled via OM: Order cancelled - Patient discharged Performed By: #### L 400.0001 #### [facility] [address] [place], [address] Basic Metabolic Profile (BMP )on 07-16-2024 BUN Normal 7-18 [facility] Comment on above: Result Comment: Canc elled via OM: Order cancelled - Patient discharged Performed By: #### L 100.0100, L500.2500 #### [facility] [address] [place], [address] BUN/CRE Normal 10-20 [facility] Comment on above: Result Comment: Canc elled via OM: Order cancelled - Patient discharged Performed By: #### L 100.0100, L500.2500 #### [facility] [address] [place], [address] CA,Total Normal 8.5-10.1 [facility] Comment on above: Result Comment: Canc elled via OM: Order cancelled - Patient discharged Performed By: #### L 100.0100, L500.2500 #### [facility] [address] [place], [address] CL Normal 98-107 [facility] Comment on above: Result Comment: Canc elled via OM: Order cancelled - Patient discharged Performed By: #### L 100.0100, L500.2500 #### [facility] [address] [facility] [address] CO2 Normal 21.0-32.0 [facility] Comment on above: Result Comment: Canc elled via OM: Order cancelled - Patient discharged Performed By: #### L 100.0100, L500.2500 #### [facility] [address] [place], [address] CREAT,SERUM Normal 0.70-1.30 [facility] Comment on above: Result Comment: Canc elled via OM: Order cancelled - Patient discharged Performed By: #### L 100.0100, L500.2500 #### [facility] [address] [place], [address] EST GFR Normal >60 [facility] Comment on above: Result Comment: Canc elled via OM: Order cancelled - Patient discharged Performed By: #### L 100.0100, L500.2500 #### [facility] [address] [place], [address] EST GFR - AA Normal >60 [facility] Comment on above: Result Comment: Canc elled via OM: Order cancelled - Patient discharged Performed By: #### L 100.0100, L500.2500 #### [facility] [address] [place], [address] GAP Normal 5-15 [facility] Comment on above: Result Comment: Canc elled via OM: Order cancelled - Patient discharged Performed By: #### L 100.0100, L500.2500 #### [facility] [address] [place], [address] GLU Normal 74-106 [facility] Comment on above: Result Comment: Canc elled via OM: Order cancelled - Patient discharged Performed By: #### L 100.0100, L500.2500 #### [facility] [address] [place], [address] Potassium Normal 3.5-5.1 [facility] Comment on above: Result Comment: Canc elled via OM: Order cancelled - Patient discharged Performed By: #### L 100.0100, L500.2500 #### [facility] [address] [place], [address] Basic Metabolic Profile (BMP) Normal 136-145 [facility] Comment on above: Result Comment: Canc elled via OM: Order cancelled - Patient discharged Performed By: #### L 100.0100, L500.2500 #### [facility] [address] [place], [address] CBC W/Diff, Automatedon 09-2 0-2023 Absolute Neut Normal 2.0-7.7 [facility] Comment on above: Result Comment: Canc elled via OM: Order cancelled - Patient discharged Performed By: #### L 100.0100, L500.2500 #### [facility] [address] [place], [address] HCT Normal 40-54 [facility] Comment on above: Result Comment: Canc elled via OM: Order cancelled - Patient discharged Performed By: #### L 100.0100, L500.2500 #### [facility] [address] [place], [address] HGB Normal 13.0-16.5 [facility] Comment on above: Result Comment: Canc elled via OM: Order cancelled - Patient discharged Performed By: #### L 100.0100, L500.2500 #### [facility] [address] [place], [address] MCH Normal 27.0-32.0 [facility] Comment on above: Result Comment: Canc elled via OM: Order cancelled - Patient discharged Performed By: #### L 100.0100, L500.2500 #### [facility] [address] [place], [address] MCHC Normal 32-36 [facility] Comment on above: Result Comment: Canc elled via OM: Order cancelled - Patient discharged Performed By: #### L 100.0100, L500.2500 #### [facility] [address] [place], [address] MCV Normal 80-94 [facility] Comment on above: Result Comment: Canc elled via OM: Order cancelled - Patient discharged Performed By: #### L 100.0100, L500.2500 #### [facility] [address] [place], [address] NEUT% Normal 47-70 [facility] Comment on above: Result Comment: Canc elled via OM: Order cancelled - Patient discharged Performed By: #### L 100.0100, L500.2500 #### [facility] [address] [place], [address] PLT Normal 150-450 [facility] Comment on above: Result Comment: Canc elled via OM: Order cancelled - Patient discharged Performed By: #### L 100.0100, L500.2500 #### [facility] [address] [place], [address] RBC Normal 4.6-6.2 [facility] Comment on above: Result Comment: Canc elled via OM: Order cancelled - Patient discharged Performed By: #### L 100.0100, L500.2500 #### [facility] [address] [place], [address] RDW CV Normal 11.6-14.6 [facility] Comment on above: Result Comment: Canc elled via OM: Order cancelled - Patient discharged Performed By: #### L 100.0100, L500.2500 #### [facility] [address] [place], [address] RDW SD Normal 35.1-43.9 [facility] Comment on above: Result Comment: Canc elled via OM: Order cancelled - Patient discharged Performed By: #### L 100.0100, L500.2500 #### [facility] [address] [place], [address] WBC Normal 4.4-11.0 [facility] Comment on above: Result Comment: Canc elled via OM: Order cancelled - Patient discharged Performed By: #### L 100.0100, L500.2500 #### [facility] [address] [place], [address] Basic Metabolic Profile (BMP )on 07-15-2024 BUN Normal 7-18 [facility] Comment on above: Result Comment: Canc elled via OM: Order cancelled - Patient discharged Performed By: #### L 100.0100, L500.2500 #### [facility] [address] [place], [address] BUN/CRE Normal 10-20 [facility] Comment on above: Result Comment: Canc elled via OM: Order cancelled - Patient discharged Performed By: #### L 100.0100, L500.2500 #### [facility] [address] [place], [address] CA,Total Normal 8.5-10.1 [facility] Comment on above: Result Comment: Canc elled via OM: Order cancelled - Patient discharged Performed By: #### L 100.0100, L500.2500 #### [facility] [address] [place], [address] CL Normal 98-107 [facility] Comment on above: Result Comment: Canc elled via OM: Order cancelled - Patient discharged Performed By: #### L 100.0100, L500.2500 #### [facility] [address] [place], [address] CO2 Normal 21.0-32.0 [facility] Comment on above: Result Comment: Canc elled via OM: Order cancelled - Patient discharged Performed By: #### L 100.0100, L500.2500 #### [facility] [address] [place], [address] CREAT,SERUM Normal 0.70-1.30 [facility] Comment on above: Result Comment: Canc elled via OM: Order cancelled - Patient discharged Performed By: #### L 100.0100, L500.2500 #### [facility] [address] [place], [address] EST GFR Normal >60 [facility] Comment on above: Result Comment: Canc elled via OM: Order cancelled - Patient discharged Performed By: #### L 100.0100, L500.2500 #### [facility] [address] [place], [address] EST GFR - AA Normal >60 [facility] Comment on above: Result Comment: Canc elled via OM: Order cancelled - Patient discharged Performed By: #### L 100.0100, L500.2500 #### [facility] [address] [place], [address] GAP Normal 5-15 [facility] Comment on above: Result Comment: Canc elled via OM: Order cancelled - Patient discharged Performed By: #### L 100.0100, L500.2500 #### [facility] [address] [place], [address] GLU Normal 74-106 [facility] Comment on above: Result Comment: Canc elled via OM: Order cancelled - Patient discharged Performed By: #### L 100.0100, L500.2500 #### [facility] [address] [place], [address] Potassium Normal 3.5-5.1 [facility] Comment on above: Result Comment: Canc elled via OM: Order cancelled - Patient discharged Performed By: #### L 100.0100, L500.2500 #### [facility] [address] [place], [address] Basic Metabolic Profile (BMP) Normal 136-145 [facility] Comment on above: Result Comment: Canc elled via OM: Order cancelled - Patient discharged Performed By: #### L 100.0100, L500.2500 #### [facility] [address] [place], [address] CBC W/Diff, Automatedon - PATH REV Reviewed Normal [facility] Comment on above: Result Comment: Leuk ocytosis. Microcytic anemia. Clinical correlation necessary. Trent Corea M.D. 07/15/24 AMENDED REPORT 07/15/24 1304 PATH REV previously reported as: February foll Performed By: #### L 100.0100, L500.2500 #### [facility] [address] [place], [address] Absolute Neut Normal 2.0-7.7 [facility] Comment on above: Result Comment: Canc elled via OM: Order cancelled - Patient discharged Performed By: #### L 100.0100, L500.2500 #### [facility] [address] [place], [address] HCT Normal 40-54 [facility] Comment on above: Result Comment: Canc elled via OM: Order cancelled - Patient discharged Performed By: #### L 100.0100, L500.2500 #### [facility] [address] [place], [address] HGB Normal 13.0-16.5 [facility] Comment on above: Result Comment: Canc elled via OM: Order cancelled - Patient discharged Performed By: #### L 100.0100, L500.2500 #### [facility] [address] [place], [address] MCH Normal 27.0-32.0 [facility] Comment on above: Result Comment: Canc elled via OM: Order cancelled - Patient discharged Performed By: #### L 100.0100, L500.2500 #### [facility] [address] [place], [address] MCHC Normal 32-36 [facility] Comment on above: Result Comment: Canc elled via OM: Order cancelled - Patient discharged Performed By: #### L 100.0100, L500.2500 #### [facility] [address] [place], [address] MCV Normal 80-94 [facility] Comment on above: Result Comment: Canc elled via OM: Order cancelled - Patient discharged Performed By: #### L 100.0100, L500.2500 #### [facility] [address] [place], [address] NEUT% Normal 47-70 [facility] Comment on above: Result Comment: Canc elled via OM: Order cancelled - Patient discharged Performed By: #### L 100.0100, L500.2500 #### [facility] [address] [place], [address] PLT Normal 150-450 [facility] Comment on above: Result Comment: Canc elled via OM: Order cancelled - Patient discharged Performed By: #### L 100.0100, L500.2500 #### [facility] [address] [place] [place], [address] RBC Normal 4.6-6.2 [facility] Comment on above: Result Comment: Canc elled via OM: Order cancelled - Patient discharged Performed By: #### L 100.0100, L500.2500 #### [facility] [address] [place], [address] RDW CV Normal 11.6-14.6 [facility] Comment on above: Result Comment: Canc elled via OM: Order cancelled - Patient discharged Performed By: #### L 100.0100, L500.2500 #### [facility] [address] [place], [address] RDW SD Normal 35.1-43.9 [facility] Comment on above: Result Comment: Canc elled via OM: Order cancelled - Patient discharged Performed By: #### L 100.0100, L500.2500 #### [facility] [address] [place], [address] WBC Normal 4.4-11.0 [facility] Comment on above: Result Comment: Canc elled via OM: Order cancelled - Patient discharged Performed By: #### L 100.0100, L500.2500 #### [facility] [address] [place], [address] Basic Metabolic Profile (BMP )on 07-14-2024 BUN Normal 7-18 [facility] Comment on above: Result Comment: Canc elled via OM: Order cancelled - Patient discharged Performed By: #### L 400.0001 #### [facility] [address] [place], [address] BUN/CRE Normal 10-20 [facility] Comment on above: Result Comment: Canc elled via OM: Order cancelled - Patient discharged Performed By: #### L 400.0001 #### [facility] [address] [place], [address] CA,Total Normal 8.5-10.1 [facility] Comment on above: Result Comment: Canc elled via OM: Order cancelled - Patient discharged Performed By: #### L 400.0001 #### [facility] [address] [place], [address] CL Normal 98-107 [facility] Comment on above: Result Comment: Canc elled via OM: Order cancelled - Patient discharged Performed By: #### L 400.0001 #### [facility] [address] [place], [address] CO2 Normal 21.0-32.0 [facility] Comment on above: Result Comment: Canc elled via OM: Order cancelled - Patient discharged Performed By: #### L 400.0001 #### [facility] [address] [place], [address] CREAT,SERUM Normal 0.70-1.30 [facility] Comment on above: Result Comment: Canc elled via OM: Order cancelled - Patient discharged Performed By: #### L 400.0001 #### [facility] [address] [place], [address] EST GFR Normal >60 [facility] Comment on above: Result Comment: Canc elled via OM: Order cancelled - Patient discharged Performed By: #### L 400.0001 #### [facility] [address] [place], [address] EST GFR - AA Normal >60 [facility] Comment on above: Result Comment: Canc elled via OM: Order cancelled - Patient discharged Performed By: #### L 400.0001 #### [facility] [address] [place], [address] GAP Normal 5-15 [facility] Comment on above: Result Comment: Canc elled via OM: Order cancelled - Patient discharged Performed By: #### L 400.0001 #### [facility] [address] [place], [address] GLU Normal 74-106 [facility] Comment on above: Result Comment: Canc elled via OM: Order cancelled - Patient discharged Performed By: #### L 400.0001 #### [facility] [address] [place], [address] Potassium Normal 3.5-5.1 [facility] Comment on above: Result Comment: Canc elled via OM: Order cancelled - Patient discharged Performed By: #### L 400.0001 #### [facility] [address] [place], [address] Basic Metabolic Profile (BMP) Normal 136-145 [facility] Comment on above: Result Comment: Canc elled via OM: Order cancelled - Patient discharged Performed By: #### L 400.0001 #### [facility] [address] [place], [address] CBC W/Diff, Automatedon - Absolute Neut Normal 2.0-7.7 [facility] Comment on above: Result Comment: Canc elled via OM: Order cancelled - Patient discharged Performed By: #### L 400.0001 #### [facility] [address] [place], [address] HCT Normal 40-54 [facility] Comment on above: Result Comment: Canc elled via OM: Order cancelled - Patient discharged Performed By: #### L 400.0001 #### [facility] [address] [place], [address] HGB Normal 13.0-16.5 [facility] Comment on above: Result Comment: Canc elled via OM: Order cancelled - Patient discharged Performed By: #### L 400.0001 #### [facility] [address] [place], [address] MCH Normal 27.0-32.0 [facility] Comment on above: Result Comment: Canc elled via OM: Order cancelled - Patient discharged Performed By: #### L 400.0001 #### [facility] [address] [place], [address] MCHC Normal 32-36 [facility] Comment on above: Result Comment: Canc elled via OM: Order cancelled - Patient discharged Performed By: #### L 400.0001 #### [facility] [address] [place], [address] MCV Normal 80-94 [facility] Comment on above: Result Comment: Canc elled via OM: Order cancelled - Patient discharged Performed By: #### L 400.0001 #### [facility] [address] [place], [address] NEUT% Normal 47-70 [facility] Comment on above: Result Comment: Canc elled via OM: Order cancelled - Patient discharged Performed By: #### L 400.0001 #### [facility] [address] [place], [address] PLT Normal 150-450 [facility] Comment on above: Result Comment: Canc elled via OM: Order cancelled - Patient discharged Performed By: #### L 400.0001 #### [facility] [address] [place], [address] RBC Normal 4.6-6.2 [facility] Comment on above: Result Comment: Canc elled via OM: Order cancelled - Patient discharged Performed By: #### L 400.0001 #### [facility] [address] [place], [address] RDW CV Normal 11.6-14.6 [facility] Comment on above: Result Comment: Canc elled via OM: Order cancelled - Patient discharged Performed By: #### L 400.0001 #### [facility] [address] [place], [address] RDW SD Normal 35.1-43.9 [facility] Comment on above: Result Comment: Canc elled via OM: Order cancelled - Patient discharged Performed By: #### L 400.0001 #### [facility] [address] [place], [address] WBC Normal 4.4-11.0 [facility] Comment on above: Result Comment: Canc elled via OM: Order cancelled - Patient discharged Performed By: #### L 400.0001 #### [facility] [address] [place], [address] Culture, Blood (WB)on 2023 CUB Blood cultures x2, from two different sites No growth in 5 days. Normal [facility] Comment on above: Performed By: #### L 503.6005 #### [facility] [address] [place], [address] Basic Metabolic Profile (BMP )on 07-13-2024 BUN/CRE 21.1 RATIO High 10-20 [facility] Comment on above: Performed By: #### L 100.0100, L500.2500 #### [facility] [address] [place], [address] CA,Total 9.0 mg/dL Normal 8.5-10.1 [facility] Comment on above: Performed By: #### L 100.0100, L500.2500 #### [facility] [address] [place], [address] Chloride [Moles/Vol] 107 mmol/L Normal 98-107 [facility] Comment on above: Performed By: #### L 100.0100, L500.2500 #### [facility] [address] [place], [address] CO2 [Moles/Vol] 18.0 mmol/L Low 21.0-32.0 [facility] Comment on above: Performed By: #### L 100.0100, L500.2500 #### [facility] [address] [place], [address] Creatinine [Mass/Vol] 1.90 mg/dL High 0.70-1.30 [facility] Comment on above: Result Comment: The validity of the calculated GFR GFRAA in patients over 70 years has not been determined. Clinical correlation is essential. Performed By: #### L 100.0100, L500.2500 #### [facility] [address] [place], [address] ECRCL 36.55 ml/min Normal [facility] Comment on above: Performed By: #### L 100.0100, L500.2500 #### [facility] [address] [place], [address] EST GFR - AA 44 mL/min Low >60 [facility] Comment on above: Result Comment: Afri can Dutch GFR Calc Performed By: #### L 100.0100, L500.2500 #### [facility] [address] [place], [address] GAP 9 Normal 5-15 [facility] Comment on above: Performed By: #### L 100.0100, L500.2500 #### [facility] [address] [place], [address] GFR/1.73 sq M.predicted among non-blacks MDRD (S/P/Bld) [Vol rate/Area] 36 mL/min/{1.73_m2} Low >60 [facility] Comment on above: Result Comment: Non- GFR Calc Performed By: #### L 100.0100, L500.2500 #### [facility] [address] [place], [address] Glucose [Mass/Vol] 237 mg/dL High 74-106 [facility] Comment on above: Result Comment: Gluc ose result greater than or equal to 200 mg/dL suggests DIABETES MELLITUS per A.D.A. criteria. Performed By: #### L 100.0100, L500.2500 #### [facility] [address] [place], [address] Potassium [Moles/Vol] 4.0 mmol/L Normal 3.5-5.1 [facility] Comment on above: Performed By: #### L 100.0100, L500.2500 #### [facility] [address] [place], [address] Sodium [Moles/Vol] 134 mmol/L Low 136-145 [facility] Comment on above: Performed By: #### L 100.0100, L500.2500 #### [facility] [address] [place], [address] Urea nitrogen [Mass/Vol] 40 mg/dL High 7-18 [facility] Comment on above: Performed By: #### L 100.0100, L500.2500 #### [facility] [address] [place], [address] Discharge Instructionon 06-27 Discharge Instruction [facility] Records Department [address] [place] [address] Instructions for Home/Discharge Instructions 07/13/24 1038 MR#: [id number] Acct: [id number] Name: OLRI LYNCH Rep #: [id number] : 1945 78 From: Apple Chavez MD PCP: [facility] Status:ADM IN Discharge Instructions Diet Discharge Diet: Low fat / Low cholesterol Activity Discharge Activity: Return to Normal Activity Weight Bearing Status: Weight bearing as tolerated Dressing / Incision Call your doctor if you observe: Fever of 101 or Higher, Shortness of breath, Dizziness, Swelling in the ankles and Chest pain Follow Up Care Test Results: Test results from this visit will be discussed in further detail at your follow-up appointment, if applicable. Discharge Plan Admission Admit Date/Time: 07/09/24 17:15 Primary Reason for Your Visit: UTI, BPH Attending Provider: Apple Chavez Primary Care Provider: [facility],[place] Consulting Providers: Chucky Mckoy; Olman Mcclellan; William Burciaga Instructions Patient Instructions: ED Bladder Infection, Male (Adult) Additional Instructions / Restrictions: to be discharged with diego catheter in situ Discharge Orders/Prescriptions Prescriptions: New tamsulosin 0.4 mg Capsule 0.4 mg PO BID Qty: 60 2RF finasteride 5 mg Tablet 5 mg PO DAILY Qty: 30 1RF cefdinir 300 mg capsule 300 mg PO BID Qty: 10 0RF Continued insulin glargine 100 unit/mL (3 mL) insulin pen 18 unit subcut QPM aspirin 81 mg tablet,chewable 81 mg PO DAILY ferrous gluconate 324 mg (38 mg iron) tablet 324 mg PO DAILY atorvastatin 40 mg tablet 40 mg PO QPM pregabalin [Lyrica] 75 mg capsule 75 mg PO BID sitagliptin 25 mg tablet 25 mg PO DAILY amlodipine 10 mg tablet 10 mg PO DAILY glipizide 10 mg tablet 10 mg PO BID Referrals / Follow Up: Chucky Mckoy MD [Med Staff - Active Staff] - Within 2 Weeks [facility] [Primary Care Provider] - Within 1 Week Disposition Disposition (needs filled in before D/C Order can be placed): Home, Self Care 07/13/24 1040 Apple Chavez MD CC: Dr. William Burciaga, ; Dr. Chucky Mckoy MD; Dr. Olman Mcclellan MD; [facility] Signed Normal [facility] Basic Metabolic Profile (BMP )on 07-12-2024 BUN/CRE 20.1 RATIO High 10-20 [facility] Comment on above: Performed By: #### L 100.0100, L500.2500 #### [facility] [address] [place], [address] CA,Total 8.6 mg/dL Normal 8.5-10.1 [facility] Comment on above: Performed By: #### L 100.0100, L500.2500 #### [facility] [address] [place], [address] Chloride [Moles/Vol] 108 mmol/L High 98-107 [facility] Comment on above: Performed By: #### L 100.0100, L500.2500 #### [facility] [address] [place], [address] CO2 [Moles/Vol] 20.0 mmol/L Low 21.0-32.0 [facility] Comment on above: Performed By: #### L 100.0100, L500.2500 #### [facility] [address] [place], [address] Creatinine [Mass/Vol] 2.04 mg/dL High 0.70-1.30 [facility] Comment on above: Result Comment: The validity of the calculated GFR GFRAA in patients over 70 years has not been determined. Clinical correlation is essential. Performed By: #### L 100.0100, L500.2500 #### [facility] [address] [place], [address] ECRCL 34.04 ml/min Normal [facility] Comment on above: Performed By: #### L 100.0100, L500.2500 #### [facility] [address] [place], [address] EST GFR - AA 41 mL/min Low >60 [facility] Comment on above: Result Comment: Afri can Dutch GFR Calc Performed By: #### L 100.0100, L500.2500 #### [facility] [address] [place], [address] GAP 6 Normal 5-15 [facility] Comment on above: Performed By: #### L 100.0100, L500.2500 #### [facility] [address] [place], [address] GFR/1.73 sq M.predicted among non-blacks MDRD (S/P/Bld) [Vol rate/Area] 34 mL/min/{1.73_m2} Low >60 [facility] Comment on above: Result Comment: Non- GFR Calc Performed By: #### L 100.0100, L500.2500 #### [facility] [address] [place], [address] Glucose [Mass/Vol] 225 mg/dL High 74-106 [facility] Comment on above: Result Comment: Gluc ose result greater than or equal to 200 mg/dL suggests DIABETES MELLITUS per A.D.A. criteria. Performed By: #### L 100.0100, L500.2500 #### [facility] [address] [place], [address] Potassium [Moles/Vol] 4.1 mmol/L Normal 3.5-5.1 [facility] Comment on above: Performed By: #### L 100.0100, L500.2500 #### [facility] [address] [place], [address] Sodium [Moles/Vol] 134 mmol/L Low 136-145 [facility] Comment on above: Performed By: #### L 100.0100, L500.2500 #### [facility] [address] [place], [address] Urea nitrogen [Mass/Vol] 41 mg/dL High 7-18 [facility] Comment on above: Performed By: #### L 100.0100, L500.2500 #### [facility] [address] [place], [address] Bedside Glucoseon 07-12-2024 FINGERSTICK GLU 325 mg/dL High 74-106 [facility] Comment on above: Result Comment: JAYLENE GEMENT OF PATIENT CARE PER NURSING PROTOCOL Performed By: #### L 400.0001 #### [facility] [address] [place], [address] FINGERSTICK GLU 208 mg/dL High 74-106 [facility] Comment on above: Result Comment: JAYLENE GEMENT OF PATIENT CARE PER NURSING PROTOCOL Performed By: #### L 100.0100, L500.2500 #### [facility] [address] [place], [place], [address] CBC W/Diff, Automatedon 06-27 PATH REV Reviewed Normal [facility] Comment on above: Result Comment: Neut rophilic leukocytosis. Clinical correlation necessary. Trent Corea M.D. 07/12/24 AMENDED REPORT 07/12/24 0930 PATH REV previously reported as: May foll Performed By: #### L 400.0001 #### [facility] [address] [place], [place], [id number] PATH REV Reviewed Normal [facility] Comment on above: Result Comment: Neut rophilic leukocytosis. Clinical correlation necessary. Trent Corea M.D. 07/12/24 AMENDED REPORT 07/12/24925 PATH REV previously reported as: May foll Performed By: #### L 100.0100, L500.2500 #### [facility] [address] [place], [address] PATH REV Reviewed Normal [facility] Comment on above: Result Comment: Neut rophilic leukocytosis. Clinical correlation necessary. Trent Corea M.D. 07/12/24 AMENDED REPORT 07/12/24 0925 PATH REV previously reported as: May foll Performed By: #### L 500.2500, L300.3900, L300.4310, L500.3400, L501.4020, L100.0100 #### [facility] [address] [place], [place], [address] PATH REV Reviewed Normal [facility] Comment on above: Result Comment: Leuk ocytosis. Normocytic anemia. Clinical correlation necessary. Trent Corea M.D. 07/12/24 AMENDED REPORT 07/12/24 0913 PATH REV previously reported as: May foll Performed By: #### L 100.0100, L500.2500 #### [facility] [address] [place], [address] Consultation - Urologyon Consultation - Urology [facility] Medical Records Department [address] [place] [address] Consultation - Urology 07/12/24 0737 MR#: [id number] Acct: [id number] Name: LORI LYNCH Rep #: [id number] : 1945 78 From: Chucky Mckoy MD PCP: [facility] Status:ADM IN Location: [facility] [id number] HPI Consult Data Date of Consult: 07/12/24 HPI Narrative Reason for Consultation: Follow-up on Diego placement infection HPI Narrative: LORI LYNCH, is a 78 M who presents to the hospital with infection history of BPH with obstruction difficult Diego placement, had to taken to the surgery and do a cystoscopy and Diego placement in the OR attempted to place a stent on the left side but his prostate so large is not able to place a stent. But with decompression of his urinary system his white blood count is improved fever curve is getting better he distal had a low-grade fever yesterday white blood count is down to 15. Urine cultures pending. I also put him on Flomax twice daily and Proscar for his prostate. Urine catheter is in place and draining clear yellow urine. Will see if he goes home with a catheter or we can do a voiding trial prior to going home he is a difficult Diego placement so I may just have him go home with a catheter. [facility] Medical History Diabetes High cholesterol HTN (hypertension) Smoker Prostate enlargement Lung cancer Home Medications ???Medication ???Instructions ???Recorded ???Last Taken ???Type amlodipine 10 mg tablet 10 mg PO DAILY BP 07/10/24 07/09/24 10:00 History 10 mg aspirin 81 mg chewable tablet 81 mg PO DAILY blood thinner 07/10/24 07/09/24 08:00 History 81 mg atorvastatin 40 mg tablet 40 mg PO QPM cholesterol 07/10/24 07/09/24 22:00 History 40 mg ferrous gluconate 324 mg (38 mg 324 mg PO DAILY supplement 07/10/24 07/09/24 08:00 History iron) tablet 324 mg glipizide 10 mg tablet 10 mg PO BID diabetes 07/10/24 07/09/24 17:00 History 10 mg insulin glargine 100 unit/mL (3 18 unit subcut QPM diabetes 07/10/24 07/08/24 22:00 History mL) subcutaneous pen 18 units pregabalin 75 mg capsule (Lyrica) 75 mg PO BID pain 07/10/24 07/09/24 17:00 History 75 mg sitagliptin 25 mg tablet 25 mg PO DAILY diabetes 07/10/24 07/09/24 08:04 History 25 mg Allergy/AdvReac Type Severity Reaction Status Date / Time amoxicillin (From Augmentin) Allergy Hives Verified 03/14/22 12:27 clavulanic acid (From Allergy Hives Verified 03/14/22 12:27 Augmentin) lisinopril Allergy Other Verified 03/14/22 12:27 Family History Other Diabetes Surgical History H/O shoulder replacement Social History Smoking Status: Current every day smoker tobacco type: cigarettes Lab / Micro Data 07/12/24 06:10 07/12/24 06:10 Labs: Laboratory Results - last 24 hr 07/11/24 21:49: POC Glucose 256 H 07/12/24 06:10: WBC 15.8 H, RBC 4.53 L, Hgb 11.8 L, Hct 36.6 L, MCV 80.8, MCH 26.0 L, MCHC 32.2, RDW Std Deviation 50.8 H, RDW Coeff of Marlene 17.3 H, Plt Count 205, MPV 11.6, Immature Gran % (Auto) 0.600, Neut % (Auto) 68.1, Lymph % (Auto) 9.5 L, [place] % (Auto) 18.1 H, Eos % (Auto) 3.4, Baso % (Auto) 0.3, Absolute Neuts (auto) 10.7 H, Absolute Lymphs (auto) 1.50, Nucleated RBC % 0, Sodium 134 L, Potassium 4.1, Chloride 108 H, Carbon Dioxide 20.0 L, Anion Gap 6, BUN 41 H, Creatinine 2.04 H, Estim Creat Clear Calc 34.04, Est GFR (MDRD) Af Amer 41 L, Est GFR (MDRD) Non-Af 34 L, B UN/Creatinine Ratio 20.1 H, Glucose 225 H, Calcium 8.6 07/12/24 06:11: POC Glucose 208 H Micro: Microbiology 07/09/24 16:24 Urine, Clean Catch Urine Culture - Final Culture exhibits no growth. 07/09/24 13:21 Blood Culture (Wb) - Anticubital Left Blood Culture - Preliminary 07/12/24 0738 Cosigner Signature (if applicable): CC: [facility] Signed Normal [facility] Basic Metabolic Profile (BMP )on 07-11-2024 BUN/CRE 19.6 RATIO Normal 10-20 [facility] Comment on above: Performed By: #### L 100.0100, L500.2500 #### [facility] [address] [place], [address] CA,Total 8.1 mg/dL Low 8.5-10.1 [facility] Comment on above: Performed By: #### L 100.0100, L500.2500 #### [facility] [address] [place], [address] Chloride [Moles/Vol] 112 mmol/L High 98-107 [facility] Comment on above: Performed By: #### L 100.0100, L500.2500 #### [facility] [address] [place], [address] CO2 [Moles/Vol] 20.0 mmol/L Low 21.0-32.0 [facility] Comment on above: Performed By: #### L 100.0100, L500.2500 #### [facility] [address] [place], [address] Creatinine [Mass/Vol] 2.04 mg/dL High 0.70-1.30 [facility] Comment on above: Result Comment: The validity of the calculated GFR GFRAA in patients over 70 years has not been determined. Clinical correlation is essential. Performed By: #### L 100.0100, L500.2500 #### [facility] [address] [place], [address] ECRCL 34.04 ml/min Normal [facility] Comment on above: Performed By: #### L 100.0100, L500.2500 #### [facility] [address] [place], [address] EST GFR - AA 41 mL/min Low >60 [facility] Comment on above: Result Comment: Afri can Dutch GFR Calc Performed By: #### L 100.0100, L500.2500 #### [facility] [address] [place], [address] GAP 6 Normal 5-15 [facility] Comment on above: Performed By: #### L 100.0100, L500.2500 #### [facility] [address] [place], [address] GFR/1.73 sq M.predicted among non-blacks MDRD (S/P/Bld) [Vol rate/Area] 34 mL/min/{1.73_m2} Low >60 [facility] Comment on above: Result Comment: Non- GFR Calc Performed By: #### L 100.0100, L500.2500 #### [facility] [address] [place], [address] Glucose [Mass/Vol] 173 mg/dL High 74-106 [facility] Comment on above: Result Comment: Fast ing Glucose result greater than or equal to 126 mg/dL suggests DIABETES MELLITUS per A.D.A. criteria. Performed By: #### L 100.0100, L500.2500 #### [facility] [address] [place], [address] Potassium [Moles/Vol] 4.2 mmol/L Normal 3.5-5.1 [facility] Comment on above: Performed By: #### L 100.0100, L500.2500 #### [facility] [address] [place], [address] Sodium [Moles/Vol] 138 mmol/L Normal 136-145 [facility] Comment on above: Performed By: #### L 100.0100, L500.2500 #### [facility] [address] [place], [address] Urea nitrogen [Mass/Vol] 40 mg/dL High 7-18 [facility] Comment on above: Performed By: #### L 100.0100, L500.2500 #### [facility] [address] [place], [address] Bedside Glucoseon 07-11-2024 FINGERSTICK GLU 256 mg/dL High 74-106 [facility] Comment on above: Result Comment: JAYLENE GEMENT OF PATIENT CARE PER NURSING PROTOCOL Performed By: #### L 400.0001 #### [facility] [address] [place], [address] FINGERSTICK GLU 162 mg/dL High 74-106 [facility] Comment on above: Result Comment: JAYLENE GEMENT OF PATIENT CARE PER NURSING PROTOCOL Performed By: #### L 400.0001 #### [facility] [address] [place], [address] Consultation - Urologyon Consultation - Urology [facility] Medical Records Department [address] [place] [address] Consultation - Urology 07/11/24 1037 MR#: [id number] Acct: [id number] Name: LORI LYNCH Rep #: [id number] : 1945 78 From: Chucky Mckoy MD PCP: [facility] Status:ADM IN Location: [facility] [place] [id number] HPI Consult Data Date of Consult: 07/11/24 HPI Narrative Reason for Consultation: Follow-up on Diego placement HPI Narrative: LORI LYNCH, is a 78 M who presents to the hospital with UTI and pyelonephritis took him to surgery yesterday placed a catheter was not able to place a stent anatomy was too difficult. But his white count is improving he is clinically stable organ to start him on Flomax twice a day and Proscar once a day. Prior to going home will take out the catheter for voiding trial will continue with antibiotics await cultures. [facility] Medical History Diabetes High cholesterol HTN (hypertension) Smoker Prostate enlargement Lung cancer Home Medications ???Medication ???Instructions ???Recorded ???Last Taken ???Type amlodipine 10 mg tablet 10 mg PO DAILY BP 07/10/24 07/09/24 10:00 History 10 mg aspirin 81 mg chewable tablet 81 mg PO DAILY blood thinner 07/10/24 07/09/24 08:00 History 81 mg atorvastatin 40 mg tablet 40 mg PO QPM cholesterol 07/10/24 07/09/24 22:00 History 40 mg ferrous gluconate 324 mg (38 mg 324 mg PO DAILY supplement 07/10/24 07/09/24 08:00 History iron) tablet 324 mg glipizide 10 mg tablet 10 mg PO BID diabetes 07/10/24 07/09/24 17:00 History 10 mg insulin glargine 100 unit/mL (3 18 unit subcut QPM diabetes 07/10/24 07/08/24 22:00 History mL) subcutaneous pen 18 units pregabalin 75 mg capsule (Lyrica) 75 mg PO BID pain 07/10/24 07/09/24 17:00 History 75 mg sitagliptin 25 mg tablet 25 mg PO DAILY diabetes 07/10/24 07/09/24 08:04 History 25 mg Allergy/AdvReac Type Severity Reaction Status Date / Time amoxicillin (From Augmentin) Allergy Hives Verified 03/14/22 12:27 clavulanic acid (From Allergy Hives Verified 03/14/22 12:27 Augmentin) lisinopril Allergy Other Verified 03/14/22 12:27 Family History Other Diabetes Surgical History H/O shoulder replacement Social History Smoking Status: Current every day smoker tobacco type: cigarettes Lab / Micro Data 07/11/24 05:31 07/11/24 05:31 Labs: Laboratory Results - last 24 hr 07/10/24 22:42: POC Glucose 191 H 07/11/24 05:31: WBC 22.6 H, RBC 4.56 L, Hgb 11.7 L, Hct 37.5 L, MCV 82.2, MCH 25.7 L, MCHC 31.2 L, R DW Std Deviation 52.3 H, RDW Coeff of Marlene 17.5 H, Plt Count 194, MPV 12.1 H, Immature Gran % (Auto) 1.100 H, Neut % (Auto) 77.2 H, Lymph % (Auto) 4.9 L, [place] % (Auto) 14.4 H, Eos % (Auto) 2.0, Baso % (Auto) 0.4, Absolute Neuts (auto) 17.5 H, Absolute Lymphs (auto) 1.11, Nucleated RBC % 0, Differential Comment SCANNED, Diff Path Review February, Sodium 138, Potassium 4.2, Chloride 112 H, Carbon Dioxide 20.0 L, Anion Gap 6, BUN 40 H, Creatinine 2.04 H, Estim Creat Clear Calc 34.04, Est GFR (MDRD) Af Amer 41 L, Est GFR (MDRD) Non-Af 34 L, BUN/Creatinine Ratio 19.6, Glucose 173 H, C alcium 8.1 L 07/11/24 06:41: POC Glucose 162 H Micro: Microbiology 07/09/24 13:21 Blood Culture (Wb) - Anticubital Left Blood Culture - Preliminary 07/09/24 16:24 Urine, Clean Catch Urine Culture - Preliminary Culture exhibits no growth. 07/11/24 1038 Cosigner Signature (if applicable): CC: [facility] Signed Normal [facility] Basic Metabolic Profile (BMP )on 07-10-2024 BUN/CRE 17.3 RATIO Normal 10-20 [facility] Comment on above: Performed By: #### L 100.0100, L500.2500 #### [facility] [place], [address] CA,Total 8.5 mg/dL Normal 8.5-10.1 [facility] Comment on above: Performed By: #### L 100.0100, L500.2500 #### [facility] [address] [place], [address] Chloride [Moles/Vol] 110 mmol/L High 98-107 [facility] Comment on above: Performed By: #### L 100.0100, L500.2500 #### [facility] [address] [place], [address] CO2 [Moles/Vol] 19.0 mmol/L Low 21.0-32.0 [facility] Comment on above: Performed By: #### L 100.0100, L500.2500 #### [facility] [address] [place], [address] Creatinine [Mass/Vol] 2.37 mg/dL High 0.70-1.30 [facility] Comment on above: Result Comment: The validity of the calculated GFR GFRAA in patients over 70 years has not been determined. Clinical correlation is essential. Performed By: #### L 100.0100, L500.2500 #### [facility] [address] [place], [address] ECRCL 29.79 ml/min Normal [facility] Comment on above: Performed By: #### L 100.0100, L500.2500 #### [facility] [address] [place], [address] EST GFR - AA 34 mL/min Low >60 [facility] Comment on above: Result Comment: Afri can Dutch GFR Calc Performed By: #### L 100.0100, L500.2500 #### [facility] [address] [place], [address] GAP 8 Normal 5-15 [facility] Comment on above: Performed By: #### L 100.0100, L500.2500 #### [facility] [address] [place], [address] GFR/1.73 sq M.predicted among non-blacks MDRD (S/P/Bld) [Vol rate/Area] 28 mL/min/{1.73_m2} Low >60 [facility] Comment on above: Result Comment: Non- GFR Calc Performed By: #### L 100.0100, L500.2500 #### [facility] [address] [place], [address] Glucose [Mass/Vol] 212 mg/dL High 74-106 [facility] Comment on above: Result Comment: Gluc ose result greater than or equal to 200 mg/dL suggests DIABETES MELLITUS per A.D.A. criteria. Performed By: #### L 100.0100, L500.2500 #### [facility] [address] [place], [address] Potassium [Moles/Vol] 4.4 mmol/L Normal 3.5-5.1 [facility] Comment on above: Performed By: #### L 100.0100, L500.2500 #### [facility] [address] [place], [address] Sodium [Moles/Vol] 137 mmol/L Normal 136-145 [facility] Comment on above: Performed By: #### L 100.0100, L500.2500 #### [facility] [address] [place], [address] Urea nitrogen [Mass/Vol] 41 mg/dL High 7-18 [facility] Comment on above: Performed By: #### L 100.0100, L500.2500 #### [facility] [address] [place], [address] Bedside Glucoseon 07-10-2024 FINGERSTICK GLU 191 mg/dL High 74-106 [facility] Comment on above: Result Comment: JAYLENE NEGRO OF PATIENT CARE PER NURSING PROTOCOL Performed By: #### L 100.0100, L500.2500 #### [facility] [address] [place], [address] Consultation - Urologyon Consultation - Urology [facility] Medical Records Department [address] [place] [address] Consultation - Urology 07/10/24 1022 MR#: [id number] Acct: [id number] Name: LORI LYNCH Rep #: [id number] : 1945 78 From: Chucky Mckoy MD [facility]CP: [facility] Status:ADM IN Location: [facility] [id number] HPI Consult Data Date of Consult: 07/10/24 HPI Narrative Reason for Consultation: Left pyelonephritis HPI Narrative: LORI LYNCH, is a 78 M who presents to the hospital with a white count of 30,000 he has a urinary tract infection nurses attempted to place the catheter in the emergency room were unsuccessful some sort of obstruction or blockage he does state that he had an aqua ablation procedure in his prostate. This was done in [place]. I attempted to place the catheter bedside as well using some wires and dilators but the patient refused was too painful. He has been able to urinate but his white count still high has been running fevers I think he is going to need intervention so I recommended taken to surgery for cystoscopy stent placement on the left side for his pyelo and Diego placement. Patient initially was resistant to the idea but I told him that in order to improve his outcome and potential to decompress his urinary system and the infection we need to do this procedure and then he was agreeable. [facility] Medical History Diabetes High cholesterol HTN (hypertension) Smoker Prostate enlargement Lung cancer Allergy/AdvReac Type Severity Reaction Status Date / Time amoxicillin (From Augmentin) Allergy Hives Verified 03/14/22 12:27 clavulanic acid (From Allergy Hives Verified 03/14/22 12:27 Augmentin) lisinopril Allergy Other Verified 03/14/22 12:27 Family History Other Diabetes Surgical History H/O shoulder replacement Social History Smoking Status: Current every day smoker tobacco type: cigarettes Lab / Micro Data 07/10/24 06:10 07/10/24 06:10 Labs: Laboratory Results - last 24 hr 07/09/24 13:00: WBC 30.5 H*, RBC 4.99, Hgb 12.8 L, Hct 41.4, MCV 83.0, MCH 25.7 L, MCHC 30.9 L, RDW Std Deviation 52.7 H, RDW Coeff of Marlene 17.6 H, Plt Count 255, MPV 11.5, Immature Gran % (Auto) 1.600 H, Neut % (Auto) 77.2 H, Lymph % (Auto) 5.9 L, [place] % (Auto) 14.6 H, Eos % (Auto) 0.3, Baso % (Auto) 0.4, Absolute Neuts (auto) 23.5 H, Absolute Lymphs (auto) 1.80, Nucleated RBC % 0, Differential Comment SCANNED, Diff Path Review May foll, Plt Morphology Comment LARGE, Polychromasia 2+, Anisocytosis 2+, PT 15.6 H, INR 1.2, APTT 27.5, Sodium 138, Potassium 4.5, Chloride 108 H, Carbon Dioxide 19.0 L, Anion Gap 11, BUN 43 H, Creatinine 2.73 H, Est GFR (MDRD) Af Amer 29 L, Est GFR (MDRD) Non-Af 24 L, BUN/Creatinine Ratio 15.8, Glucose 224 H, Calcium 9.3, Total Bilirubin 0.50, Direct Bilirubin 0.14, AST 23, ALT 15 L, Alkaline Phosphatase 116, Troponin I High Sens 18, Total Protein 7.5, Albumin 2.8 L, Globulin 4.7 H 07/09/24 13:30: Lactic Acid 2.1 H* 07/09/24 16:30: Lactic Acid 1.1 07/09/24 22:25: Urine Color Red, Urine Clarity Turbid, Urine pH 6.5, Ur Specific [place] 1.010, U rine Protein 100 H, Urine Glucose (UA) Normal, Urine Ketones Negative, Urine Occult Blood 250 H, Urine Nitrite Negative, Urine Bilirubin Negative, Urine Urobilinogen Normal, Ur Leukocyte Esterase 500 H, Urine RBC 50-100 SEEN, Urine WBC 25-50 SEEN, Ur Squamous Epith Cells 0 SEEN, Urine Bacteria 0 SEEN, Urine Mucus 0 SEEN 07/10/24 06:10: WBC 31.1 H*, RBC 4.90, Hgb 12.7 L, Hct 39.9 L, MCV 81.4, MCH 25.9 L, MCHC 31.8 L, R DW Std Deviation 51.9 H, RDW Coeff of Marlene 17.6 H, Plt Count 214, MPV 11.1, Immature Gran % (Auto) 1.000 H, Neut % (Auto) 81.1 H, Lymph % (Auto) 4.2 L, [place] % (Auto) 13.2 H, Eos % (Auto) 0.1, Baso % (Auto) 0.4, Absolute Neuts (auto) 25.2 H, Absolute Lymphs (auto) 1.29, Nucleated RBC % 0, Diff Path Review May foll, Atypical Lymphocytes 1+, Plt Morphology Comment GIANT, Sodium 137, Potassium 4.4, C hloride 110 H, Carbon Dioxide 19.0 L, Anion Gap 8, BUN 41 H, Creatinine 2.37 H, Estim Creat Clear Calc 29.79, Est GFR (MDRD) Af Amer 34 L, Est GFR (MDRD) Non-Af 28 L, BUN/Creatinine Ratio 17.3, G lucose 212 H, Calcium 8.5 Micro: Microbiology 07/09/24 13:21 Blood Culture (Wb) - Venous Blood Culture - Preliminary 07/09/24 13:21 Mucosa - Nose SARS-CoV-2, Influenza RSV (PCR) - Final Imaging Radiology Impression Head/Neck CTA 07/09/24 12:37 IMPRESSION: 1. Chronic ischemic and involutional changes of the brain. STUDY: CTA HEAD AND NECK WITH CONTRAST REASON FOR EXAM: Male, 78 years old. Neuro deficit, acute, stroke suspected Additional clinical history: 78-year-old male with an apparent history of lung carcinoma, pr (more content not included)... Normal [facility] MR/POSTOP.ANEon 07-10-2024 MR/POSTOP.[facility] Medical Records Department [address] [place] [address] Anesthesia Postop Eval I 07/10/24 1140 MR#: [id number] Acct: [id number] Name: LORI LYNCH Rep #: [id number] : 1945 78 From: William Lawson MD PCP: [facility] Status:ADM IN Y Race: C Location: [place] [address] Anesthesia: Postop Eval I Current Vital Signs Temperature: 98.8 F Pulse Rate: 94 Blood Pressure: 147/72 Respiratory Rate: 18 Pulse Ox: 98 Oxygen Delivery Method: Nasal Cannula Oxygen Flow Rate (L/min): 2 Assessment Airway patent: Yes Spontaneous unlabored respirations: Yes nausea: No Vomiting: No Anesthesia Complication: No Fluid Hydration Crystalloid volume administer (ml): 1,000 Total IV fluid infused: 1,000 Progress Note Anesthesia document: Postop Eval 1 completed: Yes 07/13/24 075 Date William Lawson MD Cosigner Signature: Date CC: Signed Normal [facility] MR/[id number] 07-10-2024 [facility] Medical Records Department [address] [place] [address] Anesthesia Postop Eval II 07/10/24 1243 MR#: [id number] Acct: [id number] Name: LORI LYNCH Rep #: [id number] : 1945 78 From: Angelica Giles PCP: [facility] Status:ADM IN Y Race: C Location: [place] [address]-1 Anesthesia Postop Eval I Sum Anesthesia Postop Eval I Summary Anesthesia Postop Eval I Summary: Anesthesia Postop Eval I: Assessment Summary Airway patent Spontaneous unlabored respirations Mental status Awake,Calm 07/10/24 12:41 FITTER/[email or web address].SHOL nausea No 07/10/24 12:41 FITTER/WELDER.SHOL Vomiting No 07/10/24 12:41 FITTER/WELDER.SHOL Anesthesia Postop Eval I: Fluid Summary Crystalloid volume administer (ml) Colloids volume administered ( ml) Blood Product volume administered (ml) Total IV fluid infused Anesthesia Postop Eval I: Summary Notes Anesthesia Complication Anesthesia Complication Comment: Post-operative progress note Anesthesia: Postop Eval II Evaluation Mental status: Awake and Calm Pain Level: 0 nausea: No Vomiting: No 07/10/24 1243 Date Angelica Giles Cosigner Signature: Date CC: Signed Normal [facility] MR/POSTOPAN2 [facility] Medical Records Department [address] [place] [id number] Anesthesia Postop Eval II 07/10/24 1241 MR#: [id number] Acct: [id number] Name: LORI LYNCH Rep #: [id number] : 1945 78 From: Angelica Giles PCP: [facility] Status:ADM IN Y Race: C [id number] Anesthesia Postop Eval I Sum Anesthesia Postop Eval I Summary Anesthesia Postop Eval I Summary: Anesthesia Postop Eval I: Assessment Summary Airway patent Spontaneous unlabored respirations Mental status nausea Vomiting Anesthesia Postop Eval I: Fluid Summary Crystalloid volume administer (ml) Colloids volume administered ( ml) Blood Product volume administered (ml) Total IV fluid infused Anesthesia Postop Eval I: Summary Notes Anesthesia Complication Anesthesia Complication Comment: Post-operative progress note Anesthesia: Postop Eval II Evaluation Mental status: Awake and Calm Pain Level: 0 nausea: No Vomiting: No 07/10/24 1242 Date Angelica Giles Cosigner Signature: Date CC: Signed Normal [facility] Operative Reporton 4 Operative Report [facility] Medical Records Department [address] [place] [address] Operative Report 07/10/24 1223 MR#: [id number] Acct: [id number] Name: LORI LYNCH Rep #: [id number] : 1945 78 From: Chucky Mckoy MD [facility]CP: [facility] Status:ADM IN [id number] Report of Operation Date of Procedure: 07/10/24 Pre-Operative Diagnosis: Urinary tract infection BPH with obstruction and left pyelonephritis Post-Operative Diagnosis: The same Surgery/Procedure Performed:: Cystoscopy, complicated Diego placement, attempted left stent placement Description of Surgical Findings:: Indication is a 78-year-old male history of a very large prostate he had some sort of aqua ablation procedure on the prostate done at outside hospital this past year comes in with urosepsis white count of 20,000 CAT scan that demonstrates inflammation along the left ureter consistent with infection they also did not rule out possible malignancy underlying. So today again taken to surgery and place a Diego and right attempted place a stent on the left side Patient was taken back to the operating room after induction of anesthesia he was placed supine on the table when inside the bladder with a 21 Portuguese rigid cystourethroscope the entire length of the urethra was clear the prostate is extremely large still had a significant amount of blockage in the side the channel once I got inside the bladder very large prostate almost impossible to find ureteral orifices heavily trabeculated bladder I searched around for quite some time was not able to identify the left or the right ureteral orifices attempted several times a plastic pass a wire into areas that looked like the ureteral orifices were completely unsuccessful. Therefore the point I decided to abort placement of the left ureteral stent and at least will place a Diego catheter for the left the guidewire in place and over the wire went with a [place] tip catheter and put a catheter into the bladder that help drain bladder and facilitate drainage of his infection patient's anesthetic was reversed taken back to the PACU in good condition hopefully with drainage of the infection and a catheter this will improve his infection I was not able to place a stent in the left side if the stent becomes necessary we may consider percutaneous access by radiology but for now we will discontinue with a Diego catheter and see if this will provide enough drainage. Surgeon: Chucky Mckoy Type of Anesthesia: IV Sedation Drains: 18 fr [place] tip diego Admit VTE Documentation VTE Present on Admission: No VTE Mechan Device Prophylaxis: SCD's VTE Pharm Prophylaxis ordered?: No 07/10/24 1225 Cosigner Signature (if applicable): CC: Dr. Chucky Mckoy MD; Dr. Olman Mcclellan MD; [facility] Signed Normal [facility] Urine Cultureon 07-10-2024 [facility] Culture exhibits no growth. Normal [facility] Comment on above: Performed By: #### M 100.2200 ####[facility] [address] [place], [address] 12 Lead EKGon 07-09-2024 12 Lead EKG [facility] Cardiovascular Services [address] [place] [address] 12 Lead EKG 07/09/24 1243 MR#: [id number] Acct: [id number] Name: LORI LYNCH Rep #: [id number] : 1945 78 From: Wolfgang Hooker MD Attending Dr: Dr. Apple Chavez MD Status: AD M IN Ordering Dr: Omar Elliott DO Date: 07/09/24 Location: [facility] Sex: M C Admitted: 07/09/24 Test Reason : DIZZINESS Blood Pressure : / mmHG Vent. Rate : 082 BPM Atrial Rate : 082 BPM P-R Int : 188 ms QRS Dur : 078 ms QT Int : 336 ms P-R-T Axes : 050 058 073 degrees QTc Int : 392 ms Poor data quality, interpretation may be adversely affected Normal sinus rhythm Low voltage QRS Borderline ECG Confirmed by Wolfgang Hooker ([id number]), continuity editor ELEAZAR CHILDERS ([id number]) on 07/12/2024 11:16:41 AM Referred By: Confirmed By:Wolfgang Hooker 07/12/24 1117 Date Wolfgang Hooker MD CC: Dr. Apple Chavez MD; Dr. Omar Elliott, DO; [facility] Signed Normal [facility] Abdomen/Pelvis without Conto n 07-09-2024 Abdomen/Pelvis without Cont [facility] Imaging Services [address] [place], [place] [address] Abdomen/Pelvis without Cont MR#: [id number] Acct: [id number] Name: LORI LYNCH Rep #: [id number] : 1945 M 78 From: Nichole rosen MD PCP: [facility] Status: ADM IN Study: Abdomen/Pelvis without Cont Date of Exam: 06/27 01/17 Exam# [id number] Ordering Dr: Olman Mcclellan [place] [id number] EXAM: CT ABDOMEN AND PELVIS WITHOUT INTRAVENOUS CONTRAST CLINICAL INDICATION: Renal/bladder anatomym, leukocytosis TECHNIQUE: Helically acquired images were obtained of the abdomen and pelvis without intravenous contrast. This CT exam was performed using one or more of the following dose reduction techniques: automated exposure control, adjustment of the mA and/or kV according to patient size, and/or use of iterative reconstruction technique. COMPARISON: PET CT 01/20/2024, 02/06/2022. FINDINGS: LOWER THORAX: Unremarkable. Lung bases are clear. No cardiomegaly. No significant pericardial effusion. ABDOMEN: LIVER: Unremarkable. Homogeneous. GALLBLADDER AND BILE DUCTS: Unremarkable. No calcified gallstones. No gallbladder distention or wall edema. No intra- or extrahepatic biliary ductal dilation. PANCREAS: Unremarkable. No focal cystic mass. SPLEEN: Unremarkable. Normal size without focal cystic or solid mass. ADRENALS: Unremarkable. No nodules. KIDNEYS AND URETERS: No hydronephrosis on the right. Mild hydronephrosis on the left. Thick-walled mid to distal left ureter suspicious for inflammation or transitional cell carcinoma. Multiple renal cysts bilaterally, not adequately characterized on this delayed contrast study. 3.3 cm mid pole right renal cyst with CT density 35 Hounsfield units. 2 cm lower pole left renal cyst with CT density 54 Hounsfield units. 2.9 cm lesion mid pole right kidney CT density 47 Hounsfield units. These findings are not consistent with simple renal cysts and may represent hemorrhagic cysts or solid lesions. These appear moderately enlarged compared to 2021. STOMACH AND BOWEL: Diverticulosis. No acute diverticulitis. No stomach or bowel distention. PELVIS: APPENDIX: No evidence of acute appendicitis. BLADDER: Bladder is partially distended. Mild thickening of the bladder wall posteriorly and inferiorly. This is nonspecific and may be due to infection versus malignancy. REPRODUCTIVE: Prostate gland measures 7.6 x 7.6 x 8.9 cm. ABDOMEN and PELVIS: INTRAPERITONEAL SPACE: Unremarkable. No ascites or other fluid collection. No free air. BONES/JOINTS: Unremarkable. No suspicious lytic or blastic abnormality. SOFT TISSUES: Unremarkable. No discrete abdominal or pelvic wall hernia. VASCULATURE: Unremarkable. Abdominal aorta is normal in caliber. LYMPH NODES: Unremarkable. No enlarged lymph nodes. CT/Abdomen/Pelvis without Cont IMPRESSION: 1. Mild left hydronephrosis with thick-walled mid to distal ureter, concerning for infection versus transitional cell malignancy. 2. Markedly enlarged prostate gland. 3. Bilateral renal lesions not consistent with simple cysts. Hemorrhagic cysts are favored over solid lesions. Electronically Signed: Nichole Guzman MD at 18:20 EDT Reading Location ID and State: [id number] / Tel , Service support , CC: Dr. Olman Mcclellan MD; [facility] Home Fire Alarm Installer: Signed Normal [facility] Basic Metabolic Profile (BMP )on 07-09-2024 BUN/CRE 15.8 RATIO Normal 10-20 [facility] Comment on above: Order Comment: 'TROP ' Serial specimen #1, #2 or #3: 1 Performed By: #### L 500.2500, L300.3900, L300.4310, L500.3400, L501.4020, L100.0100 ####[facility] [address] [place], [address] CA,Total 9.3 mg/dL Normal 8.5-10.1 [facility] Comment on above: Order Comment: 'TROP ' Serial specimen #1, #2 or #3: 1 Performed By: #### L 500.2500, L300.3900, L300.4310, L500.3400, L501.4020, L100.0100 ####[facility] [address] [place], [address] Chloride [Moles/Vol] 108 mmol/L High 98-107 [facility] Comment on above: Order Comment: 'TROP ' Serial specimen #1, #2 or #3: 1 Performed By: #### L 500.2500, L300.3900, L300.4310, L500.3400, L501.4020, L100.0100 ####[facility] [address] [place], [address] CO2 [Moles/Vol] 19.0 mmol/L Low 21.0-32.0 [facility] Comment on above: Order Comment: 'TROP ' Serial specimen #1, #2 or #3: 1 Performed By: #### L 500.2500, L300.3900, L300.4310, L500.3400, L501.4020, L100.0100 ####[facility] [address] [place], [address] Creatinine [Mass/Vol] 2.73 mg/dL High 0.70-1.30 [facility] Comment on above: Order Comment: 'TROP ' Serial specimen #1, #2 or #3: 1 Result Comment: The validity of the calculated GFR GFRAA in patients over 70 years has not been determined. Clinical correlation is essential. Performed By: #### L 500.2500, L300.3900, L300.4310, L500.3400, L501.4020, L100.0100 ####[facility] [address] [place], [address] EST GFR - AA 29 mL/min Low >60 [facility] Comment on above: Order Comment: 'TROP ' Serial specimen #1, #2 or #3: 1 Result Comment: Afri can Dutch GFR Calc Performed By: #### L 500.2500, L300.3900, L300.4310, L500.3400, L501.4020, L100.0100 ####[facility] [address] [place], [address] GAP 11 Normal 5-15 [facility] Comment on above: Order Comment: 'TROP ' Serial specimen #1, #2 or #3: 1 Performed By: #### L 500.2500, L300.3900, L300.4310, L500.3400, L501.4020, L100.0100 ####[facility] [address] [place], [address] GFR/1.73 sq M.predicted among non-blacks MDRD (S/P/Bld) [Vol rate/Area] 24 mL/min/{1.73_m2} Low >60 [facility] Comment on above: Order Comment: 'TROP ' Serial specimen #1, #2 or #3: 1 Result Comment: Non- GFR Calc Performed By: #### L 500.2500, L300.3900, L300.4310, L500.3400, L501.4020, L100.0100 ####[facility] [address] [place], [address] Glucose [Mass/Vol] 224 mg/dL High 74-106 [facility] Comment on above: Order Comment: 'TROP ' Serial specimen #1, #2 or #3: 1 Result Comment: Gluc ose result greater than or equal to 200 mg/dL suggests DIABETES MELLITUS per A.D.A. criteria. Performed By: #### L 500.2500, L300.3900, L300.4310, L500.3400, L501.4020, L100.0100 ####[facility] [address] [place], [address] Potassium [Moles/Vol] 4.5 mmol/L Normal 3.5-5.1 [facility] Comment on above: Order Comment: 'TROP ' Serial specimen #1, #2 or #3: 1 Performed By: #### L 500.2500, L300.3900, L300.4310, L500.3400, L501.4020, L100.0100 ####[facility] [address] [place], [address] Sodium [Moles/Vol] 138 mmol/L Normal 136-145 [facility] Comment on above: Order Comment: 'TROP ' Serial specimen #1, #2 or #3: 1 Performed By: #### L 500.2500, L300.3900, L300.4310, L500.3400, L501.4020, L100.0100 ####[facility] [address] [place], [address] Urea nitrogen [Mass/Vol] 43 mg/dL High 7-18 [facility] Comment on above: Order Comment: 'TROP ' Serial specimen #1, #2 or #3: 1 Performed By: #### L 500.2500, L300.3900, L300.4310, L500.3400, L501.4020, L100.0100 ####[facility] [address] [place], [address] CTA Head AND Neck W/ Contras ton 07-09-2024 CTA Head AND Neck W/ Contrast [facility] Imaging Services [address] [place] [address] CTA Head AND Neck W/ Contrast MR#: [id number] Acct: [id number] Name: SYEDLORI Shamar Rep #: [id number] : 1945 M 78 From: Woo galicia MD PCP: [facility] Status: REG ER Study: CTA Head AND Neck W/ Contrast Date of Exam: Exam# [id number] Ordering Dr: Omar Elliott DO [id number] STUDY: CT BRAIN WITHOUT CONTRAST REASON FOR EXAM: Male, 78 years old. Neuro deficit, acute, stroke suspected RADIATION DOSAGE (If Supplied By Facility): CTDIvol = ( 29.82 ) mGy, DLP = ( 1633.75 ) mGycm TECHNIQUE: Transaxial CT imaging of the brain was performed without administration of intravenous contrast material. Individualized dose optimization techniques were used for this CT. COMPARISON: None. FINDINGS: Normal soft tissue structures. Normal calvarium. There is mild cerebral atrophy with widening of the extra-axial spaces and ventricular dilatation. There are areas of decreased attenuation within the white matter tracts of the supratentorial brain, consistent with microvascular disease changes. Normal basal ganglia and thalami. Normal brainstem. Normal cerebellum. There is no intracranial hemorrhage. There are no findings of an acute ischemic infarction. Normal visualized paranasal sinuses. IMPRESSION: 1. Chronic ischemic and involutional changes of the brain. STUDY: CTA HEAD AND NECK WITH CONTRAST REASON FOR EXAM: Male, 78 years old. Neuro deficit, acute, stroke suspected Additional clinical history: 78-year-old male with an apparent history of lung carcinoma, presenting for restaging examination and evaluation of pulmonary nodularity. RADIATION DOSAGE (If Supplied By Facility): CTDIvol = ( 29.82 ) mGy, DLP = ( 1633.75 ) mGycm TECHNIQUE: CT angiography was performed with a multi-detector CT scanner. Data acquisition was obtained from the skull base through the vertex following intravenous administration of IV 75mL Isovue-370. MIP images were reconstructed from the axial data set. Post-processing of the angiographic images was performed, with multiplanar reformation and 3D reconstruction. Individualized dose optimization techniques were used for this CT. COMPARISON: No relevant priors. FINDINGS: Normal bilateral petrous carotid arteries. There is calcified plaque formation of the right cavernous carotid artery, without a cross-sectional luminal stenosis. There is calcified plaque formation of the left cavernous carotid artery, with a mild stenosis (less than 50%). Normal right A1 segments of the anterior cerebral artery. Normal left A1 segments of the anterior cerebral artery. Normal intact anterior communicating artery (ACOM). Normal bilateral A2 segments of the anterior cerebral arteries. Normal right M1 and M2 segments of the middle cerebral arteries, with a normal M1 bifurcation. Normal left M1 and M2 segments of the middle cerebral arteries, with a normal M1 bifurcation. Normal right posterior communicating artery (PCOM). There is non-visualization of the left posterior communicating artery (PCOM). Normal bilateral vertebral arteries. There is tortuosity with elongation of the basilar artery. The visualized bilateral superior cerebellar (SCA) arteries are normal. Normal bilateral P1, P2 and visualized P3 segments of the posterior cerebral arteries. There is no demonstrated aneurysm of the kaibab of [place]. no demonstrated thrombus or occlusion or hemodynamically significant stenosis of the major intracranial arteries. Fully patent and normal enhancement of the major intracranial venous sinuses, with no evidence of venous sinus thrombosis or occlusion. NECK CTA: 6 mm nodule in the lateral subpleural region of the right upper lobe seen on image 1/565 series 4. Refer to recent CT of the chest and PET CT exams. This nodule should be followed up according to Fleischner Society''s criteria an annual CT lung cancer screening studies. Cystic emphysematous changes and interstitial thickening is seen in the bilateral upper lobes. AORTIC ARCH: There is atherosclerotic calcific plaque formation of the aortic arch and great vessels arising from the aortic arch, without a hemodynamically significant stenosis. There is a normal origin of the brachiocephalic, left common carotid, and left subclavian arteries. Mild atherosclerotic plaque and tortuosity origins of the brachiocephalic, left common carotid, and left subclavian arteries. RIGHT CAROTID ARTERIES: Normal right common carotid artery (CCA). There is mild atherosclerotic plaque formation with minimal narrowing of the right carotid bulb. There is mild atherosclerotic plaque format (more content not included)... Normal [facility] Chest 1 Viewon 07-09-2024 Chest 1 View [facility] Imaging Services [address] [place] [address] Chest 1 View MR#: [id number] Acct: [id number] Name: SYEDLORI Shamar Rep #: [id number] : 1945 M 78 From: Patrick Herrera MD PCP: [facility] Status: REG ER Study: Chest 1 View Date of Exam: 07/09/24 Exam# [id number] Ordering Dr: Omar Elliott DO [id number] STUDY: X-RAY CHEST REASON FOR EXAM: Male, 78 years old. Neurodeficit. Suspected stroke. TECHNIQUE: Single frontal view of the chest. COMPARISON: Chest CT dated December 16, 2023 FINDINGS: Elevation of both hemidiaphragms with diffuse mild interstitial prominence. Scarring in the right upper lobe. There is no demonstrated pleural abnormality. Mild cardiomegaly. Normal mediastinum and milady. Normal visualized pulmonary arteries. Aortic tortuosity. No abnormality of the visualized soft tissue structures of the upper abdomen. RAD/Chest 1 View IMPRESSION: No active or acute cardiopulmonary disease. Electronically Signed: Patrick Herrera MD at 14:24 EDT Reading Location ID and State: [id number] , Service support , CC: Dr. Omar Elliott DO; [facility] Home Fire Alarm Installer: Signed Normal [facility] Emergency Department Summary on 07-09-2024 Emergency Department Summary [facility] Medical Records Department [address] [place] [address] Emergency Department Summary 07/09/24 MR#: [id number] Acct: [id number] Name: LORI LYNCH Rep #: [id number] : 1945 78 From: Omar Elliott DO PCP: [facility] Status:ADM IN Location: [facility] [place] [id number] Greg Ruiz MD on 07/09/24 at 2112 I took over care of this patient while still in the emergency department, I was approached by hospitalist after he was involved with admitting the patient and trying to get urology involved. Patient had a CT of the abdomen/pelvis which appeared to show an obstructive uropathy the or mass involving the mid to distal left ureter causing hydronephrosis. He has a white count of 30 and apparently blood cultures are also coming back positive. It is gram-positive cocci, this is of undetermined significance, this could be contaminant or could be another source including urinary although I would expect a different organism. This is the only results that are available at this time. He has already received IV antibiotics. There was no urine able to be obtained because nursing was not able to get a catheter in him, and hospitalist I discussed with Dr. Moncada, but she does not see the male patients and deferred to the hospitalist either consult Dr. Mckoy or transfer the patient. No urinalysis has been ordered at this time, so I added that and reevaluated the patient. Clinically he is doing very well, his vital signs are stable, his temperature is down to 99 from 102.1, and he has a pure wick on and is producing what appears to be cloudy nonbloody urine, I had them check bladder scan he has a little over 200 left so he is not completely emptying but he is urinating. Dr. Mckoy came and evaluated the patient, tried to put a Diego in but the patient asked him to stop, and he said since he is urinating does not require an emergent catheter. Given that, I think at this time he can continue to be admitted to medicine with treatment with antibiotics. Of note, the patient has a urologist in [place] affiliated with the [facility], he states her name is Dr. Alvarez. He has [facility]. The patient prefers to stay here and not go to the [facility] or go to [place] at this time. Hospitalist put admission orders and, at this time he does not require the ICU based on his clinical status and hemodynamics, so I am okay with him continuing to go upstairs to medical floor/PCU. 07/09/242111 Cosigner Signature (if applicable): cc: [facility] * Signed HPI History of Present Illness Chief Complaint: Fatigue Narrative Narrative: Patient is a 78-year-old male with past medical hypertension, hypercholesteremia, prostate enlargement, lung cancer who presented to the [facility] part with a chief complaint of difficulty walking generalized weakness. According to the patient his last well-known was when he went to bed around 9 PM and woke up around 530 this morning. He states when he woke up he had weakness and difficulty with walking. He states that he had to hold onto things and to support his ambulation. He states that he did have a fall but did not pass out did not lose consciousness. Given his symptoms a brought him here for the evaluation management [facility] Medical History Diabetes High cholesterol HTN (hypertension) Smoker Prostate enlargement Lung cancer Allergy/AdvReac Type Severity Reaction Status Date / Time amoxicillin (From Augmentin) Allergy Hives Verified 03/14/22 12:27 clavulanic acid (From Allergy Hives Verified 03/14/22 12:27 Augmentin) lisinopril Allergy Other Verified 03/14/22 12:27 Surgical History H/O shoulder replacement Social History Smoking Status: Current every day smoker tobacco type: cigarettes ROS ROS ED ROS Narrative Constitutional: Denies any fevers, chills, headaches, lightness, dizziness Eyes: Denies double vision blurry vision changes vision Cardiovascular: Denies chest pain or palpitations Respiratory: Denies coughing wheezing shortness of breath Abdomen: Denies abdominal pain nausea vomit diarrhea : Denies any urinary symptoms Neurological: Denies numbness, weakness, tingling Musculoskeletal: Denies back pain Skin: Denies rashes or lesions EXAM Physical Exam Narrative Exam Narrative: General: Patient was lying in bed rest comfortably did not appear to be acute distress Head: Atraumatic, normocephalic Eyes: PERRL bilateral, EOMI bilateral, no conjunctival injection noted Neck: Soft, supple, trach midline Cardiovascular: Regular rate and rhythm no murmurs gallops rubs noted Respiratory: Clear to auscultation bilaterally no rales rhonchi wheeze noted Abdomen: Sof (more content not included)... Normal [facility] - [facility] H&P Exam - Hospitalist [facility] Medical Records Department [address] [place] [address] H P Exam - Hospitalist 07/09/24 1815 MR#: [id number] Acct: [id number] Name: LORI LYNCH Rep #: [id number] : 1945 78 From: Olman Mcclellan MD PCP: [facility] Status:ADM IN Location: [facility] [place] KL267-7 HPI - General General Date of Admission: 07/09/24 HPI Narrative LORI LYNCH, is a 78 M who presents to the hospital with feeling unwell for about a week that significantly worsened over the last 2 or 3 days. He does have a history of UTIs and presents with a white count of 30.5. He was having significant weakness, he had an episode last week where he just felt he could not get his legs under him but this resolved after about 15 minutes. Today he has continued to feel weak. Initially there was concern for stroke however given symptomatology this is more likely related to infection. He did bladder scan for 450 cc and nursing did attempt to place a Diego however he has a significantly enlarged prostate, urology did request a CT scan of his abdomen and pelvis which is currently pending. His daughter at bedside did note that he had an episode of nausea and vomiting prior to the ambulance his arrival and that he has been feeling cold and going outside in the sun to warm up over the last week. [facility] Medical History Diabetes High cholesterol HTN (hypertension) Smoker Prostate enlargement Lung cancer Allergy/AdvReac Type Severity Reaction Status Date / Time amoxicillin (From Augmentin) Allergy Hives Verified 03/14/22 12:27 clavulanic acid (From Allergy Hives Verified 03/14/22 12:27 Augmentin) lisinopril Allergy Other Verified 03/14/22 12:27 Family History (Updated 07/09/24 @ 18:[address] Olman Mcclellan MD) Other Diabetes Surgical History H/O shoulder replacement Social History Smoking Status: Current every day smoker tobacco type: cigarettes ROS Constitutional Constitutional: Reports chills, fatigue and weakness;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 Take 1 tablet (50 mg) by mouth Nightly. Do not crush, chew, or split. - AMB POC URINALYSIS DIP STICK AUTO W/O MICRO (CRN) - Bladder scan - Urine culture - Complete Urinalysis Nocturia Addressed irritative voiding symptoms: POCT UA with moderate leukocytes and large blood. Will send urine for microscopy and culture at this time. Postvoid residual 0 mL today. Continue with Tamsulosin and Finasteride at this time. Will start trial of Mirabegron 50mg daily. Reviewed possible adverse effects of medication with patient. Follow Up: Follow up in about 8 days (around 10/18/2022). Paco Geller, STEFANIA, MANAGER GROCERY, [facility] Urology Subjective: Mr. Lynch is a 77 y.o. male who presents to the office regarding urinary frequency. Records have been reviewed. HPI Patient with known history of BPH with urinary obstruction. 08/23/2022: S/p aquablation with Dr. Camarillo . He did have successful catheter removal on 08/27/2022: Visit with urology nursing staff for voiding trial after surgery (successful) 09/16/2022: OV with Kari Raymundo NP; found to have urinary tract infection (Aerococcus urinae) and treated with Cefdinir. Patient and are frustrated with postoperative recovery thus far. Patient has been experiencing worsening urinary frequency, nocturia, urinary urgency and urge urinary incontinence. He reports that he has stopped Tamsulosin, but now resumed in addition to Finasteride. He attempted use of Oxybutynin but discontinued due to dry mouth and did not notice any improvement in urinary symptoms. Voids every 15-30 minutes Nocturia: Q1 hr nightly UUI: Occasionally Urgency: Yes Dysuria: No Hematuria: No Stream: Moderate to weak. Postvoid residual 0 mL at last visit on 09/16/2022. Review of Systems Genitourinary: Positive for frequency and urgency. Negative for difficulty urinating, dysuria, flank pain and hematuria. Urge urinary incontinence Social History Social History Tobacco Use Smoking status: Every Day Packs/day: 1.50 Types: Cigarettes Smokeless tobacco: Never Substance Use Topics Alcohol use: Not Currently Drug use: Not Currently Past Medical History: Past Medical History: Diagnosis Date Atrial fibrillation (CMS/HCC) (HCC) 2021 with pericardial effusion drainage Diabetes mellitus (HCC) History of kidney cancer 2009 Hypertension Lung cancer (HCC) [facility] Pericardial effusion 03/15/2022 [facility]rained ([facility]) Sleep apnea cpap Past Surgical History: Past Surgical History: Procedure Laterality Date CYSTOSCOPY prostrate aquablation ROTATOR CUFF REPAIR addie in past Medications Current Outpatient Medications Medication Instructions AMLODIPINE BESYLATE PO Oral finasteride (PROSCAR) 5 mg, Oral, Daily, Do not crush, chew, or split. glipiZIDE (GLUCOTROL) 10 mg, Oral, 2 times daily before meals hydroCHLOROthiazide (HYDRODIURIL) 25 mg, Oral, Daily losartan (COZAAR) 100 mg, Oral, Daily metFORMIN (GLUCOPHAGE) 500 mg, Oral, 2 times daily mirabegron ER (MYRBETRIQ) 50 mg, Oral, Nightly, Do not crush, chew, or split. NON FORMULARY 20 Units, Nightly, DETMIER Insulin tamsulosin (FLOMAX) 0.4 mg, Oral, Daily Vitals: Ht 5' 9 (1.753 m) Wt 228 lb (103 kg) BMI 33.67 kg/m? Physical Exam Vitals and nursing note reviewed. Abdominal: General: There is no distension. Palpations: Abdomen is soft. Neurological: Mental Status: He is alert. Psychiatric: Mood and Affect: Mood normal. Behavior: Behavior normal. Labs: Hemoglobin Date Value Ref Range Status 08/15/2022 15.1 13.0 - 18.0 g/dL Final Lab Results Component Value Date COLORU Yellow 10/10/2022 CLARITYU Extra Turbid (A) 09/16/2022 GLUCOSEUR Negative 10/10/2022 BILIRUBINUR Negative 10/10/2022 KETONESU Negative 10/10/2022 SPECGRAV 10/10/2022 Comment: >=1.030 PHUR 6.0 10/10/2022 PROTUR 10/10/2022 Comment: >=300mg/d (more content not included)... [facility] 36on 09-27-2022 36 Received VM from pt stating he is to finish last dose of antibiotic this date for UTI. Pt stated he still is having burning and requesting more antibiotics. Returned call to pt. Advised pt to complete full course of antibiotics and increase fluid intake. Advised pt if symptoms still persist 24hr after completion of antibiotic notify office. Pt denies fever, chills, nausea, vomiting or inability to urinate. Advised pt to try over the counter AZO to help with symptoms. Instructed Pt to report to nearest ER if fever >100.4, chills, nausea/vomiting, inability to urinate, or intractable pain. Pt verbalized understanding. Normal [facility] 36on 09-16-2022 36 Patient left stating he had aquablation on 08/22/22. He states over the weekend he noted his stream has become very weak and he is having frequency again. He feels the same as he did before procedure. Returned call to patient. He is urinating every 15 minutes and he feels that he cannot empty his bladder at all. Appointment scheduled for today at 1pm. Patient verbalizes understanding. Normal [facility] Progress Noteon 09-16-2022 Progress Note PVR 0ml Normal [facility] Office Visiton 08-27-2022 Follow-up visit [id number] Tushar Lynch 1945 M Date Provider Department Center 08/27/2022 [id number], [facility] URO None No family history on file Level of Service:08774 [place] OFFICE/OUTPT VISIT,PROCEDURE ONLY Reason for Visit and Comments: Benign Prostatic Hypertrophy [[id number]] - Void Trial post Aquablation Normal [facility] Creatinineon 08-23-2022 Creatinine [Mass/Vol] 0.91 mg/dL Normal 0.52-1.25 [facility] Comment on above: Performed By: #### C RTN3 #### [address] [address] GFR/1.73 sq M.predicted among blacks MDRD (S/P/Bld) [Vol rate/Area] mL/min/{1.73_m2} Normal >60 [facility] Comment on above: Performed By: #### C RTN3 #### [facility] [address] [place] [address] GFR/1.73 sq M.predicted among non-blacks MDRD (S/P/Bld) [Vol rate/Area] 80.4 mL/min/{1.73_m2} Normal >60 [facility] Comment on above: Result Comment: KDIG O guidelines provide the following GFR categories: Stage GFR(ml/min/1.73 m2) Terms G1 >=90 Normal or high G2 60-89 Mildly decreased* G3a 45-59 Mildly to moderately decreased G3b 30-44 Moderately to severely decreased G4 15-29 Severely decreased G5 <15 Kidney failure *Relative to young adult level. In the absence of evidence of kidney damage, neither GFR category G1 nor G2 fulfill the criteria for CKD. The CKD-EPI equation is validated in individuals 18 years of age and older. Currently the best equation for estimating glomerular filtration rate (GFR) from serum creatinine in children is the Bedside Garner equation. It is less accurate in patients with extremes of muscle mass, restriction of dietary protein, ingestion of creatine, extra-renal metabolism of creatinine, or treatment with medications that affect renal tubular creatinine secretion. Performed By: #### C RTN3 #### [facility] [address] [place], [place] Glucose,Bedsideon 08-23-2022 Glucose [Mass/Vol] 216 mg/dL High [address] [facility] Comment on above: Result Comment: Test performed by glucose meter. Results may be 10%-15% lower than serum/plasma values. (CLIA ID [id number]) Performed By: #### B GLU #### [facility] [address] [place] [address] Glucose,Bedsideon 08-22-2022 Glucose [Mass/Vol] 192 mg/dL High [address] Comment on above: Result Comment: Test performed by glucose meter. Results may be 10%-15% lower than serum/plasma values. (CLIA ID [id number]) Performed By: #### B GLU #### [facility] [address] [place] [address] Glucose [Mass/Vol] 176 mg/dL High 70-100 [facility] Comment on above: Result Comment: Test performed by glucose meter. Results may be 10%-15% lower than serum/plasma values. (CLIA ID [id number]) Performed By: #### B GLU #### [facility] [address] [place] [address] Glucose [Mass/Vol] 130 mg/dL High 70-100 [facility] Comment on above: Result Comment: Test performed by glucose meter. Results may be 10%-15% lower than serum/plasma values. (CLIA ID [id number]) Performed By: #### B GLU #### [address] [address] Op Noteon 08-22-2022 Op Note Operative Note PRE-OP DIAGNOSIS: BPH with obstruction. POST-OP DIAGNOSIS: Same OPERATION: Cystoscopy, Prostate Aquablation (CPT 0421T) SURGEON: Heri Camarillo M.D. , Franc Zambrano M.D. WASTE HAND: ANESTHESIA: General BLOOD LOSS:<20cc MEDICATIONS: Ancef 2 grams IVPB COMPLICATIONS: None SPECIMEN: Prostate chips Brief history & indication for procedure: This patient has a history of benign prostatic hypertrophy and progressively worsening symptoms of bladder outlet obstruction.. Prostate volume : 179 ml. The options for management fir the enlarged prostate and urinary obstruction have been thoroughly discussed with the patient, including but not limited to continued medications, indwelling Diego or suprapubic catheter, transurethral resection of prostate, robotic suprapubic prostatectomy, cystoscopy/Aquablation . The pros & cons of each option have been discussed, along with potential complications including but not limited to failure of therapy, heart attack, stroke, blood clot, bleeding, infection, inability to void, incontinence, and possibly . After a shared decision-making process, the patient has elected to undergo prostate Aquablation. The risks & expectations have been discussed, his questions have been answered, and consent has been obtained. Details of procedure: Patient brought to the operating room suite, general anesthesia was induced. Patient was prepped and draped in a sterile fashion. Appropriate timeout was performed. Ancef 2 g IV piggyback given. The TRUS space stepper was mounted to the articulating arm and secured to the OR bed. The ultrasound probe was attached to the stepper. The ultrasound probe was aligned, and confirmation was made that the prostate was centered and aligned using both transverse and sagittal views. The bladder neck, verumontanum and the central/transition zones were identified. A clinical assessment of the prostate was performed to estimate prostate size and to note prostate anatomy. The 24 Portuguese AQUABEAM Handpiece tip was inserted into the prostatic urethra and a complete cystoscopic evaluation was was performed by inspecting the prostate, bladder, and identifying the location of the verumontanum/external sphincter. The AQUABEAM Handpiece was secured to the handpiece articulating arm. Confirmed alignment of the AQUABEAM handpiece and TRUS probe to be parallel and collinear. Confirmation that the AQUABEAM nozzle is centered and anterior of the bladder neck or the median lobe. The cystoscope was then retracted to visualize the verumontanum and external sphincter and the cystoscope tip was positioned just proximal to the external sphincter. Reconfirmed alignment of the TRUS probe with the AQUABEAM Handpiece and compression applied with TRUS probe. Horizontal alignment of the Handpiece water jet nozzle was performed. The Aquablation treatment zones were planned utilized utilizing real-time TRUS to visualize the contour of the prostate and the depth and radial angles of the resection were defined in the transverse view. In the sagittal view, the AQUABEAM nozzle was identified in position registered with the software. The treatment contours were then adjusted to conform to the intended resection margins. The median lobe, bladder neck and verumontanum were marked and confirmed in the treatment contour The Aquablation treatment was then started following the resection contour confirmed under ultrasound guidance. Total Aquablation resection time was measured & recorded. Once Aquablation resection was complete, cystoscopy and tissue/clot evacuation was performed using a 26Fr cystoscope/resectoscop e until light pink. TUR of the bladder neck going from the 3:00 to 9 o'clock position was done. This was approximately 1 cm in length. This area was then cauterized, and all bleeders were controlled. Hemostasis was obtained., 24 Portuguese Simplastic catheter was inserted, balloon inflated to 30 cc. Diego irrigated light pink. Continuous bladder irrigation was started. Ultrasound probe was then removed. Belladonna & opium suppository is not available at this time The patient was safely moved to the transportation cart, and transported to the recovery area in stable condition. Heri Camarillo M.D. 08/22/2022 Normal [facility] CULTURE URINEon 08-17-2022 CULTURE URINE CULTURE URINE --> Status: F Normal urogenital chanda present. Normal [facility] Comment on above: Performed By: #### C /UR #### [facility] [address] [address] Hemoglobin AND Hematocriton 08-15-2022 Hematocrit (Bld) [Volume fraction] 46.1 % Normal 40.0-52.0 [facility] Comment on above: Performed By: #### H GHCT #### [address] [address] Hemoglobin (Bld) [Mass/Vol] 15.1 g/dL Normal 13.0-18.0 [facility] Comment on above: Performed By: #### H GHCT #### [facility] [address] [place] [address] Hemoglobin and HematocritOrd ered By: Thuy Mercedes on 08-15-2022 Hematocrit (Bld) [Volume fraction] 46.1 % 40.0 - 52.0 % [facility] Hemoglobin (Bld) [Mass/Vol] 15.1 g/dL 13.0 - 18.0 g/dL [facility] Hemoglobin and Hematocriton 08-15-2022 Test Performed by [facility], [address] [place] [id number] [facility] Absolute lymphocyte counton 03-14-2022 Lymphocytes Auto (Unsp spec) [#/Vol] 2.42 10*3/uL 0.83-4.51 [facility] Work Phone: Basophil percentageon 2021 Basophils/100 WBC (Bld) 0.8 % 0-1 [facility] Work Phone: Chloride [Moles/Vol] 102 mmol/L 98-107 [facility] Work Phone: Eosinophils/100 WBC (Bld) 4.1 % 0-5 [facility] Work Phone: Glucose [Mass/Vol] 179 mg/dL 74-106 [facility] Work Phone: Comment on above: Fasting Glucose resu lt greater than or equal to 126 mg/dL suggests DIABETES MELLITUS per A.D.A. criteria. Neutrophils (Bld) [#/Vol] 5.7 10*3/uL 2.0-7.7 [facility] Work Phone: Neutrophils/100 WBC (Bld) 55.7 % 47-70 [facility] Work Phone: Potassium [Moles/Vol] 4.1 mmol/L 3.5-5.1 [facility] Work Phone: Sodium [Moles/Vol] 139 mmol/L 136-145 [facility] Work Phone: WBC (Bld) [#/Vol] 10.2 10*3/uL 4.4-11.0 [facility] Work Phone: Blood erythrocytes count (nu mber/volume)on 03-14-2022 RBC (Bld) [#/Vol] 5.36 10*6/uL 4.6-6.2 [facility] Work Phone: Blood hemoglobin measurement (mass/volume)on 03-14-2022 Hemoglobin (Bld) [Mass/Vol] 15.0 g/dL 13.0-16.5 [facility] Work Phone: Blood lymphocytes/100 leukoc yteson 03-14-2022 Lymphocytes/100 WBC (Bld) 23.7 % 19-41 [facility] Work Phone: Blood manual differential co mment interpretation (narrative result)on 03-14-2022 Manual differential comment Ed (Bld) [Interp] SCANNED [facility] Work Phone: Blood monocytes/100 leukocyt eson 03-14-2022 Monocytes/100 WBC (Bld) 15.2 % 0-10 [facility] Work Phone: Blood platelet mean volumeon 03-14-2022 Platelet mean volume (Bld) [Entitic vol] 10.7 fL 6.2-12.0 [facility] Work Phone: Determination of erythrocyte mean corpuscular volume (MCV)on 03-14-2022 MCV (RBC) [Entitic vol] 85.8 fL 80-94 [facility] Work Phone: Hematocrit Auto (Bld) [Volum e fraction]on 03-14-2022 Hematocrit (Bld) [Volume fraction] 46.0 % 40-54 [facility] Work Phone: Laboratory - Chemistry and C hemistry - challengeon 03-14-2022 CO2 [Moles/Vol] 30.0 mmol/L 21.0-32.0 [facility] Work Phone: Urea nitrogen/Creatinine [Mass ratio] 17.6 mg/mg 10-20 [facility] Work Phone: Laboratory - Hematology and Cell countson 03-14-2022 Erythrocyte distribution width (RBC) [Entitic vol] 52.6 fL 35.1-43.9 [facility] Work Phone: Erythrocyte distribution width (RBC) [Ratio] 16.9 % 11.6-14.6 [facility] Work Phone: Immature granulocytes/100 WBC (Bld) 0.500 % 0.0-0.9 [facility] Work Phone: Comment on above: IG% - Immature Granu locytes (promyelocytes, myelocytes and metamyelocytes) > 1% indicates that a LEFT SHIFT is Present. MCH (RBC) [Entitic mass] 28.0 pg 27.0-32.0 [facility] Work Phone: Nucleated RBC/100 WBC (Bld) [Ratio] 0 % 0-5 [facility] Work Phone: MCHC Auto (RBC) [Mass/Vol]on 03-14-2022 MCHC (RBC) [Mass/Vol] 32.6 g/dL 32-36 [facility] Work Phone: No Panel Informationon 03-14 Estimated Creatinine Clearance Calc 47.88 ml/min [facility] Work Phone: Estimated GFR (MDRD) Amer 72 mL/min >60 [facility] Work Phone: Comment on above: GFR Calc Estimated GFR (MDRD) Non-Af Amer 59 mL/min >60 [facility] Work Phone: Comment on above: Non- GFR Calc Troponin I High Sensitivity 12 pg/mL 3.0-78.0 [facility] Work Phone: Comment on above: Please Note: New Reyna t Units and Gender Specific Reference Ranges. For more information see Policy Stat Procedure [place] High Sensitivity Troponin (TNIH) and attachments. Platelets bldon 03-14-2022 Platelets (Bld) [#/Vol] 173 10*3/uL 150-450 [facility] Work Phone: Serum or plasma calcium angle urement (mass/volume)on 03-14-2022 Calcium [Mass/Vol] 9.4 mg/dL 8.5-10.1 [facility] Work Phone: Serum or plasma creatinine m easurement (mass/volume)on 03-14-2022 Creatinine [Mass/Vol] 1.25 mg/dL 0.70-1.30 [facility] Work Phone: Comment on above: The validity of the calculated GFR & GFRAA in patients over 70 years has not been determined. Clinical correlation is essential. Serum or plasma urea nitroge n measurement (mass/volume)on 03-14-2022 Urea nitrogen [Mass/Vol] 22 mg/dL 7-18 [facility] Work Phone: Thin prep Papanicolaou smear with manual screeningon 03-14-2022 Thin prep Papanicolaou smear with manual screening 7 - [facility] Work Phone: Vital Signs Date Time Vital Sign Value Performing Clinician Faci lity 03-02-2025 11:58-0400 Body temperature 98.4 [degF] [facility] 03-02-2025 11:58-0400 Diastolic blood pressure 74 mm[Hg] [facility] 03-02-2025 11:58-0400 Heart rate 59 /min [facility] 03-02-2025 11:58-0400 Respiratory rate 18 /min [facility] 03-02-2025 11:58-0400 SaO2% (BldA) [Mass fraction] 98 % [facility] 03-02-2025 11:58-0400 Systolic blood pressure 130 mm[Hg] [facility] 03-02-2025 09:46-0400 Body height 172.72 cm [facility] 03-02-2025 09:46-0400 Body mass index (BMI) [Ratio] 33.5 kg/m2 [facility] 03-02-2025 09:46-0400 Body weight 100.24 kg [facility] 01-25-2025 17:43-0400 Body temperature 98.2 [degF] [facility] 01-25-2025 17:43-0400 Diastolic blood pressure 77 mm[Hg] [facility] 01-25-2025 17:43-0400 Heart rate 74 /min [facility] 01-25-2025 17:43-0400 Respiratory rate 19 /min [facility] 01-25-2025 17:43-0400 SaO2% (BldA) [Mass fraction] 98 % [facility] 01-25-2025 17:43-0400 Systolic blood pressure 148 mm[Hg] [facility] 01-25-2025 15:00-0400 Diastolic blood pressure 69 mm[Hg] [facility] 01-25-2025 15:00-0400 Heart rate 76 /min [facility] 01-25-2025 15:00-0400 Respiratory rate 22 /min [facility] 01-25-2025 15:00-0400 SaO2% (BldA) [Mass fraction] 95 % [facility] [facility] 01-25-2025 15:00-0400 Systolic blood pressure 130 mm[Hg] [facility] 01-25-2025 11:19-0400 Body height 172.72 cm [facility] 01-25-2025 11:19-0400 Body mass index (BMI) [Ratio] 33.7 kg/m2 [facility] 01-25-2025 11:19-0400 Body temperature 98.7 [degF] [facility] 01-25-2025 11:19-0400 Body weight 100.7 kg [facility] 01-14-2025 14:43-0400 Body temperature 97.8 [degF] [facility] 01-14-2025 14:43-0400 Diastolic blood pressure 79 mm[Hg] [facility] 01-14-2025 14:43-0400 Heart rate 83 /min [facility] 01-14-2025 14:43-0400 Respiratory rate 14 /min [facility] 01-14-2025 14:43-0400 SaO2% (BldA) [Mass fraction] 98 % [facility] 01-14-2025 14:43-0400 Systolic blood pressure 149 mm[Hg] [facility] 01-14-2025 11:38-0400 Body height 172.72 cm [facility] 01-14-2025 11:38-0400 Body mass index (BMI) [Ratio] 33.5 kg/m2 [facility] 01-14-2025 11:38-0400 Body weight 100.19 kg [facility] 11-13-2024 23:22-0500 Body temperature 98 [degF] [facility] 11-13-2024 23:22-0500 Diastolic blood pressure 77 mm[Hg] [facility] 11-13-2024 23:22-0500 Heart rate 81 /min [facility] 11-13-2024 23:22-0500 Respiratory rate 16 /min [facility] 11-13-2024 23:22-0500 SaO2% (BldA) [Mass fraction] 99 % [facility] 11-13-2024 23:22-0500 Systolic blood pressure 144 mm[Hg] [facility] 11-13-2024 22:02-0500 Body mass index (BMI) [Ratio] 33.5 kg/m2 [facility] 11-13-2024 22:02-0500 Body weight 100.24 kg [facility] 08-15-2022 15:37-0400 Body height 175.3 cm Heri Camarillo MD Work Phone: [facility] 08-15-2022 15:37-0400 Body mass index (BMI) [Ratio] 35.09 kg/m2 Heri Camarillo MD Work Phone: [facility] 08-15-2022 15:37-0400 Body temperature 97 [degF] Heri Camarillo MD Work Phone: [facility] 08-15-2022 15:37-0400 Body weight 107.78 kg Heri Camarillo MD Work Phone: [facility] 08-15-2022 15:37-0400 Diastolic blood pressure 55 mm[Hg] Heri Camarillo MD Work Phone: [facility] 08-15-2022 15:37-0400 Heart rate 65 /min Heri Camarillo MD Work Phone: [facility] 08-15-2022 15:37-0400 Respiratory rate 16 /min Heri Camarillo MD Work Phone: [facility] 08-15-2022 15:37-0400 SaO2% (BldA) [Mass fraction] 97 % Heri Camarillo MD Work Phone: [facility] 08-15-2022 15:37-0400 Systolic blood pressure 129 mm[Hg] Heri Camarillo MD Work Phone: [facility] 03-14-2022 13:32-0400 Diastolic blood pressure 81 mm[Hg] [facility] Work Phone: 03-14-2022 13:32-0400 Heart rate 64 /min [facility] Work Phone: 03-14-2022 13:32-0400 Respiratory rate 17 /min [facility] Work Phone: 03-14-2022 13:32-0400 SaO2% (BldA) [Mass fraction] 94 % [facility] Work Phone: 03-14-2022 13:32-0400 Systolic blood pressure 135 mm[Hg] [facility] Work Phone: 03-14-2022 12:25-0400 Body height 172.72 cm [facility] Work Phone: 03-14-2022 12:25-0400 Body mass index (BMI) [Ratio] 35.7 kg/m2 [facility] Work Phone: 03-14-2022 12:25-0400 Body temperature 98.1 [degF] [facility] Work Phone: 03-14-2022 12:25-0400 Body weight 106.59 kg [facility] Work Phone: Encounters Encounter Date Encounter Type Care Provider Facility Start: 03-29-2025 End: 03-29-[address] [facility] Work Phone: Start: 03-29-2025 End: 03-29-2025 Patient encounter procedure [facility] Start: 03-29-2025 End: 03-29-2025 ambulatory MALIK ANTONIO Facility:[facility] Start: 03-24-2025 End: 03-24-2025 Patient encounter procedure Chikis Peñanii MAP COMPILER-C -Radiology [facility] Work Phone: Start: 03-24-2025 End: 03-24-2025 ambulatory Chikis David Facility:[facility] Start: 03-15-2025 End: 03-15-2025 ambulatory ALEC TINAJERO Facility:[facility] Start: 03-02-2025 End: 03-02-2025 Emergency department patient visit [facility] -Emergency Department Work Phone: Start: 01-25-2025 End: 01-25-2025 [facility] Start: 01-21-2025 End: 01-21-[address] [facility] Work Phone: Start: 01-21-2025 End: 01-21-2025 Patient encounter procedure PALLAVI KEISHA MAP COMPILER-C -Nuclear Medicine, [facility] Work Phone: Start: 01-21-2025 End: 01-21-2025 ambulatory [facility] Facility:[facility] Start: 01-14-2025 End: 01-14-2025 Emergency department patient visit [facility] -Emergency Department Work Phone: Start: 11-13-2024 End: 11-13-2024 Emergency department patient visit Rowdy Shearer -Emergency Department Work Phone: Start: 09-03-2024 End: 09-03-2024 Emergency department patient visit Franki Medina Facility:[facility] Start: 08-31-2024 End: 08-31-2024 ambulatory [facility] Facility:[facility] Start: 08-24-2024 End: 08-24-2024 ambulatory [facility] Facility:[facility] Start: 07-30-2024 End: 07-30-2024 ambulatory [facility] Facility:[facility] Start: 07-09-2024 ambulatory Chucky Mckoy Faci lity:[facility] Start: 07-09-2024 End: 07-13-2024 Evaluation and management of inpatient Micha Leelee Facility:[facility] Start: 01-20-2024 End: 01-20-2024 ambulatory [facility] Work Phone: Start: 01-20-2024 End: 01-20-2024 Patient encounter procedure [facility] Start: 12-16-2023 End: 12-16-2023 ambulatory [facility] Work Phone: Start: 12-16-2023 End: 12-16-2023 Patient encounter procedure [facility]-Cat Scan, [facility] Work Phone: Start: 06-16-2023 End: 06-16-2023 ambulatory [facility] Work Phone: Start: 06-16-2023 End: 06-16-2023 Patient encounter procedure [facility]-Cat Scan, [facility] Work Phone: Start: 12-31-2022 End: 12-31-2022 ambulatory [facility] Work Phone: Start: 12-31-2022 End: 12-31-2022 Patient encounter procedure [facility]-Cat Scan, [facility] Start: 11-07-2022 Telephone encounter Heri plunkett MD Work Phone: [facility] [place] Comment on above: Gas (Pt stating that he has been having gas pain with flatulence. He has tried beano, gas x and nothing has worked. He wants to know if something can be called into [facility] pharm on [address] ph [phone]. Please call to let him know something not too expensive, by the way, will be called in for him or discuss further. /) Start: 10-25-2022 Telephone encounter Heri plunkett MD Work Phone: [facility] [place] Comment on above: Medication Question Start: 10-18-2022 End: 10-18-2022 ambulatory [facility] Start: 10-10-2022 End: 10-10-2022 [facility] Start: 09-16-2022 End: 09-16-2022 ambulatory [facility] Start: 08-27-2022 End: 08-27-2022 ambulatory [facility] Start: 08-22-2022 End: 08-25-2022 Evaluation and management of inpatient [facility] Start: 08-15-2022 ambulatory [facility] Start: 08-15-2022 Encounter for other preprocedural examination [facility] Start: 08-15-2022 End: 08-15-2022 Patient encounter status Heri Camarillo MD Work Phone: [facility] Start: 08-15-2022 End: 08-15-2022 Subsequent hospital visit by physician Heri Camarillo MD Work Phone: [facility] Comment on above: Pre-op testing (Prim martha Dx) Start: 03-14-2022 End: 03-14-2022 Emergency department patient visit [facility]Emergency Department Start: 02-06-2022 End: 02-06-2022 Patient encounter procedure [facility] Procedures Date Procedure Procedure Detail Performing Clinician Start: 03-24-2025 X-ray of chest, AILYN springer nd lateral views [facility] Start: 01-25-2025 CT of abdomen and pe lvis without contrast [facility] Start: 01-25-2025 Blood [facility] Start: 01-25-2025 Urine culture [facility] Start: 01-25-2025 Estimated creatinine clearance [facility] Start: 01-25-2025 Urnls dip stick/tabl et reagent auto microscopy [facility] Start: 01-21-2025 Renal isotope studies [facility] Start: 12-16-2023 CT of chest without contrast Start: 12-16-2023 US urinary tract Start: 06-16-2023 CT of chest without contrast Start: 12-31-2022 CT of chest without contrast Start: 08-15-2022 Blood count hemoglobin Estela Kern PA-C Start: 03-14-2022 Plain chest X-ray Start: 02-06-2022 Positron emission to mography with computed tomography Plan of Treatment Date Care Activity Detail Author Start: 09-30-2027 DTaP/Tdap/Td vaccine (2 - Td or Tdap) DTaP/Tdap/Td vaccine (2 - Td or Tdap) [facility] Start: 03-02-2025 [facility] Start: 01-25-2025 [facility] Start: 01-25-2025 Bacteria identified in Blood by Culture Blood Culture [facility] Start: 01-25-2025 Bacteria identified in Urine by Culture Urine Culture [facility] Start: 01-25-2025 [facility] Start: 01-25-2025 [facility] Start: 01-25-2025 Removal of urinary catheter [facility] Start: 01-14-2025 [facility] Start: 11-13-2024 [facility] Start: 01-20-2024 Positron emission tomography with computed tomography [facility] Start: 12-11-2022 End: 12-11-2022 Patient encounter procedure 12/11/2022 Office Visit Urology Yadi Pemberton, MANAGER 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 [address] [place] [address] [facility] Start: 08-22-2022 End: 08-22-2022 Patient encounter procedure 08/22/2022 Appointment General Surgery Heri Camarillo MD [address] [place] [address] Franc Zambrano MD [address] [place] [address] [facility] General Surgery Start: 06-27-2022 Influenza vaccination Influenza Vacc ine (#1) [facility] Start: 05-27-2022 Influenza vaccination Flu vaccine (# 1) [facility] Start: 05-03-2022 COVID-19 Vaccine (5 - Booster for Pfizer series) COVID-19 Vaccine (5 - Booster for Pfizer series) [facility] Start: 09-11-2021 COVID-19 Vaccine (2 - Pfizer series) COVID-19 Vaccine (2 - Pfizer series) [facility] Start: 03-09-2016 Pneumococcal 65+ yea rs Vaccine (2 - PPSV23 if available, else PCV20) Pneumococcal 65+ years Vaccine (2 - PPSV23 if available, else PCV20) [facility] Start: 1994 Screening for malign ant neoplasm of lung Low dose CT lung screening [facility] Start: 1994 Zoster Vaccines (1 of 2) Zoste r Vaccines (1 of 2) [facility] Start: 1963 DTaP/Tdap/Td Vaccine s (1 - Tdap) DTaP/Tdap/Td Vaccines (1 - Tdap) [facility] Start: 1963 Urine screening for protein Diabetes: Urine Protein Screening [facility] Start: 1962 Hepatitis C screening [facility] Start: 1956 Depression Screen Depression Screen [facility] Start: 1954 Diabetic foot examination Diabetes: Foot Exam [facility] Start: 1954 Glaucoma screening Diabetes: R etinopathy Screening [facility] Start: 1954 Preventive dental service Diabetes: Dental Exam [facility] Start: 1950 Pneumococcal Vaccine : 65+ Years (1 - PCV) Pneumococcal Vaccine: 65+ Years (1 - PCV) [facility] Start: 1944 Hemoglobin A1c measurement Diabetes: Hemoglobin A1C [facility] Start: 1944 Hepatitis B Vaccines (1 of 3 - 3-dose series) Hepatitis B Vaccines (1 of 3 - 3-dose series) [facility] Start: 1944 Lipid panel Lipid Panel [facility] End: 08-15-2022 Culture, Urine [facility] Work Phone: Comment on above: One Time for 1 Occur rences starting 08/15/2022 until 08/15/2022 Patient Education [facility] Work Phone: Patient referral [facility] Work Phone: Urine culture [facility] Immunizations Immunization Date Immunization Notes Care Provider Fa twinty 08-21-2021 Pfizer SARS-CoV-2 Vaccination Heri Camarillo MD Work Phone: [facility] Payers Date Payer Category Payer Self-pay [id number] 2024 Unknown [id number] 2022 Unknown 2021 Unknown [id number] 2009 Medicare 1945 Unknown [id number] 1945 Unknown [id number] . [id number] Medicare MEDICARE A ONLY [id number] Unknown [id number] 2.16.8 [id number] Unknown [id number] 2.16.8 [id number] Unknown [id number] 2.16.8 [id number] Unknown [id number] 2.16.8 [id number] Unknown [id number] 2.16.8 [id number] Unknown [id number] 2.16.8 [id number] Unknown [id number] 2.16.8 [id number] Unknown [id number] 2.16.8 [id number] Unknown [id number] 2.16.8 [id number] Unknown [id number] 2.16.8 [id number] Unknown [id number] 2.16.8 [id number] Unknown [id number] 2.16.8 [id number] Unknown [id number] 2.16.8 [id number] Unknown [id number] 2.16.8 [id number] Unknown [id number] 2.16.8 [id number] Unknown [id number] 2.16.8 [id number] Unknown [id number] 2.16.8 [id number] Social History Date Type Detail Facility Start: 03-14-2022 End: 03-14-2022 Tobacco smoking status NHIS Unknown if ever smoked [facility] Start: 1945 Sex Assigned At Male [facility] Start: 08-15-2022 Tobacco smoking stat us MEIS Smokes tobacco daily [facility] History of tobacco use Cigarette Smoker [facility] [employer] Work Phone: Start: 08-15-2022 Cigarettes smoked current (pack per day) - Reported 1.5 [facility] Work Phone: Start: 08-15-2022 Tobacco use and exposure Smokeless tobacco non-user [employer] Work Phone: Start: 08-15-2022 End: 10-10-2022 Alcohol intake Ex-drinker (finding) [employer] Work Phone: Start: 1945 Sex Assigned At Not on file [facility] [employer] Work Phone: Start: 08-05-2022 End: 08-15-2022 Exposure to SARS-CoV-2 (event) Not sure [employer] Work Phone: Start: 10-08-2022 End: 10-18-2022 Exposure to SARS-CoV-2 (event) Unable to assess [facility] Start: 01-14-2025 End: 03-02-2025 Tobacco smoking status NHIS Current Heavy tobacco smoker [facility] Start: 01-14-2025 End: 01-25-2025 Sex Male (finding) [facility] Clinical Notes 08-15-2022 to 03-15-2025 Note Date & Type Note Facility 03-15-2025 Note HNO ID: [id number] Author: ALEC TINAJERO MD Service: ? 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 Camarillo as noted below but a lot of urine frequency then that persisted Catheter has been draining well now No fevers or chills Follows his elevated creatinine with [facility] CT report showed some mild bilateral hydroureter and severe BPH with bilateral renal cysts and some might be 2F and suggested follow-up Instructed him to get disc with films from [place] where he had them and see me back for cystoscopy and ultrasound of prostate and go from there Past Uology History: October 18, 2022-seen by Dr. Camarillo/rishabh- 77 y.o. male who presents for telehealth visit regarding frequency after Aquablation. Aquablation 08/22/2022. Still on tamsulosin and finasteride. Feels that he empties his bladder adequately. However he has very severe urgency and frequency. No hematuria or dysuria Labs/Radiology/Procedures: February 10, 2025-CT/external-bilateral renal cysts scaling from 1-2 F and mild bilateral hydroureter left greater than right and severe BPH No results found for: CREAT No results found for: PSA No results found for: COLOR, CLARITY, UGLUC, UBILI, UKET, SPGR, UHB, UPH, UPROT, UROBILINOGEN, NITRITES, LEUKEST Review of Systems Constitutional: Negative. HENT: Negative. Eyes: Negative. Respiratory: Positive for shortness of breath. Off and on Gastrointestinal: Negative. Endocrine: Negative. Genitourinary: See HPI Musculoskeletal: Negative. Skin: Negative. Allergic/Immunologic: Negative. Neurological: Negative. Hematological: Negative. Psychiatric/Behavioral: Negative. I reviewed and confirmed ROS done by [facility] HISTORIES PAST MEDICAL HISTORY Diagnosis Date Diabetes mellitus (HCC) HTN (hypertension) No family history on file. SOCIAL HISTORY Social History Tobacco Use Smoking status: Every Day Current packs/day: 1.00 Average packs/day: 1 pack/day for 60.0 years (60.0 ttl pk-yrs) Types: Cigarettes Smokeless tobacco: Never Substance Use Topics Alcohol use: Never Drug use: Never MEDICATIONS: albuterol HFA (PROVENTIL HFA, VENTOLIN HFA) 90 mcg/actuation inhaler Inhale as instructed. amLODIPine (NORVASC) 10 mg tablet Take 10 mg by mouth once daily. aspirin, enteric coated (ASPIRIN, ENTERIC COATED) 81 mg EC tablet Take 81 mg by mouth once daily. atorvastatin (LIPITOR) 40 mg tablet Take 40 mg by mouth daily at bedtime. finasteride (PROSCAR) 5 mg tablet Take 5 mg by mouth. glipiZIDE (GLUCOTROL) 10 mg tablet Take 10 mg by mouth every morning. tamsulosin (FLOMAX) 0.4 mg Take 0.4 mg by mouth. trospium (SANCTURA) 20 mg tablet Take 20 mg by mouth. pregabalin (LYRICA) 75 mg capsule Take 75 mg by mouth two times a day. Physical Exam HENT: Head: Normocephalic and atraumatic. Nose: Nose normal. Neck: Trachea: No tracheal deviation. Pulmonary: Effort: Pulmonary effort is normal. No respiratory distress. Musculoskeletal: General: No deformity. Normal range of motion. Cervical back: Normal range of motion. Skin: General: Skin is warm. Neurological: Mental Status: He is alert and oriented to person, place, and time. Gait: Gait is intact. Psychiatric: Mood and Affect: Mood and affect normal. Cognition and Memory: Memory normal. The sensitive exam: The sensitive examination was discussed with the Patient or Patient's Authorized Senior Applications Engineer. As applicable, any other physician, advance practice provider, medical student, or other health professional student that will be observing or involved in the sensitive examination for educational or training purposes was discussed with the Patient or Authorized Senior Applications Engineer. The Patient or Authorized Senior Applications Engineer has agreed to proceed with the sensitive examination. (Sensitive examination includes inspection and/or palpation of the breasts, pelvis, prostate and anorectal regions) Risk/Benefit Discussion: Cystoscopy I explained the options concerning cystoscopy I did tell the patient about various alternatives and why cystoscopy was indicated in this particular circumstance. I advised the patient about the possible outcome and the possibility of infection post operatively and possible dysuria or hematuria. The patient expressed an understanding with regard to possible complications and outcome. FOLLOW UP: (more content not included)... [facility] 01-25-2025 Discharge summary [facility] 01-25-2025 Radiology Diagnostic study note [facility] Imaging Services [address] [place] [address] Abdomen/Pelvis without Cont MR#: [id number] Acct: [id number] Name: LORI LYNCH Rep #: [id number] : 1945 M 79 From: John Padilla MD PCP: [facility] Status: REG ER Study:Abdomen/Pelvis without Cont Date of Exa m: 01/25/25 Exam# [id number] Ordering Dr: Shirley Ruiz MD PROCEDURE: ABDOMEN/PELVIS WITHOUT CONT 01/25/2025 REASON FOR EXAM: UTI, RENAL FAILURE, CHILLS Acute kidney injury. Hypertension. TECHNIQUE: Abdomen and pelvis CT without intravenous contrast. Noncontrast technique limits evaluation of the abdominal and pelvic viscera. Coronal and Sagittal reconstruction series were provided. One or more dose reduction techniques were used (e.g., Automated exposure control, adjustment of the mA and/or kV according to patient size, use of iterative reconstruction technique). PATIENT PREPARATION: Per protocol ORAL CONTRAST TYPE: None. COMPARISON: Comparison is made with prior study dated August 31, 2024. FINDINGS: Lung bases: Mild dependent atelectasis. Coronary artery calcification. Liver: Unremarkable Gallbladder: Findings suggestive of sludge or small gallstones along the dependent portion of the gallbladder lumen. Spleen: Normal size. Pancreas: Normal size. No surrounding inflammation. Adrenals: Unremarkable Kidneys: Bilateral perinephric stranding. Bilateral hydronephrosis. Bilateral hydroureter down to the ureterovesical junction. Stable bilateral renal hyperdense cysts and possible small solid nodules. Correlation with ultrasound recommended for further evaluation. Bladder: Diffuse bladder wall thickening. The bladder is empty. Marked enlargement of the prostate gland with indentation of the bladder base. A Diego catheter is seen with the balloon dilated in the prostatic urethra. Can not exclude a mass at the base of the bladder. Reproductive Organs: Bowel: Colonic diverticulosis without diverticulitis. Appendix: The appendix is not identified. There is no inflammatory process identified in the right lower quadrant to suggest appendicitis. Lymph nodes: No retroperitoneal lymphadenopathy is seen. Vasculature: Mild diffuse atherosclerotic calcifications are noted. Peritoneum / Retroperitoneum: Unremarkable Bones: Degenerative changes of the spine. CT/Abdomen/Pelvis without Cont IMPRESSION: Bilateral hydronephrosis and hydroureter down to the urinary bladder. Distendedurinary bladder with massive enlargement of the prostate with indentation of the bladder base. I can not rule out a mass at thebase of the bladder. The tip of the Diego catheter is seen within the prostatic urethra. Reading Location: [facility] CC: Dr. Greg Ruiz MD; [facility] Home Fire Alarm Installer: Signed [facility] 01-25-2025 Discharge summary Note Date/Time January 25, 2025 5:28pm [facility] Medical Records Department [address] [place] [address] Emergency Department Summary 01/25/25 MR#: [id number] Acct: [id number] Name: LORI LYNCH Rep #:[id number] : 1945 79 From: Greg Ruiz MD PCP: [facility] Status:REG ER Location: ED HPI History of Present Illness Chief Complaint: Complaint Informant: patient Narrative Narrative: Patient presents with almost 1 week of chills, urinary pressure sensation in hislower abdomen, and leaking of urine around his indwelling Diego catheter that hehas for urinary retention. He was changed about 3 weeks ago. He has not seen urology since then he does have a urologist. He states he always has leaking around the catheter even since we changed it, but it is worse in the past week. He had blood in his urine/catheter about a week ago but it has not recurred since. Catheter has continued to drain and the urine has not looked any different. He is concerned he may have a UTI. [facility] Medical History BPH with obstruction/lower urinary tract symptoms UTI (urinary tract infection) Leukocytosis Acute kidney injury Acute lactic acidosis Generalized weakness Diabetes High cholesterol HTN (hypertension) Smoker Prostate enlargement Lung cancer Home Medications ?Medication ?Instructions ?Recorded ?Last Taken ?Type amlodipine 10 mg tablet 10 mg PO DAILY BP 07/10/24 0 01/25/25 History aspirin 81 mg chewable tablet 81 mg PO DAILY blood thi nner 07/10/24 01/24/25 History atorvastatin 40 mg tablet 40 mg PO QHS cholesterol 01/24/25 History glipizide 10 mg tablet 10 mg PO DAILY diabetes 06/2701/25/25 History insulin glargine 100 unit/mL (3 14 unit subcut QHS margaret betes 07/10/24 01/24/25 History mL) subcutaneous pen pregabalin 75 mg capsule (Lyrica) 75 mg PO BID pain 01/25/25 History sitagliptin 25 mg tablet 25 mg PO DAILY diabetes 06/2701/25/25 History finasteride 5 mg tablet 5 mg PO DAILY #30 tabs 09/17 /24 04/01/25 Rx ciprofloxacin HCl 500 mg tablet 500 mg PO DAILY 7 days #7 TABLETS 01/25/25 Unknown Rx ferrous gluconate 324 mg (38 mg 324 mg PO QHS 01/25/25 01/24/25 History iron) tablet Allergy/AdvReac Type Severity Reaction Status Date / Time amoxicillin (From Augmentin) Allergy Hives Verified 01/25/25 11:18 clavulanic acid (From Allergy Hives Verified 01/25/25 11:18 Augmentin) lisinopril Allergy Other Verified 01/25/25 11:18 Family History Other Diabetes Surgical History H/O shoulder replacement Social History Smoking Status: Heavy Smoker (>10/day) ROS ROS ED Constitutional Constitutional ED: Reports chills; Denies fever(s) Eyes Eyes: Denies change in vision or diplopia ENT ENT ED: Denies rhinorrhea or sore throat Cardiovascular Cardiovascular: Denies chest pain or palpitations Respiratory/Chest Respiratory/Chest: Denies cough or dyspnea Gastrointestinal Gastrointestinal: Reports abdominal pain; Denies diarrhea, nausea or vomiting Genitourinary Genitourinary ED: Reports hematuria and other Details: Worsening leaking around catheter ; Denies dysuria Musculoskeletal Musculoskeletal: Denies back pain or neck pain Integumentary Denies abscess or rash Neurologic Neurologic: Denies headache(s), paresthesias or weakness Psychiatric Psychiatric: Denies anxiety or suicidal thoughts EXAM Physical Exam Const Vital Signs: 01/25/25 11:19 01/25/25 13:18 01/25/25 15:00 Temperature 98.7 F Temperature Source Temporal Pulse Rate 98 81 76 Respiratory Rate 16 18 22 H Blood Pressure 149/72 H 137/68 H 130/69 H Blood Pressure Mean 97 91 89 Pulse Ox 94 98 95 Oxygen Delivery Method Room Air Room Air 01/25/25 16:56 Temperature Temperature Source Pulse Rate 89 Respiratory Rate 19 H Blood Pressure 148/77 H Blood Pressure Mean 100 Pulse Ox 99 Oxygen Delivery Method Room Air Positive well nourished and well developed Constitutional Narrative: Well-appearing in no distress no rigors General Appearance ED: well developed and NAD HEENT Reports moist mucous membranes normocephalic and atraumatic Eyes PERRL and EOMs intact bilaterally Neck full ROM and supple Resp normal respiratory effort and clear to auscultation bilaterally Cardio regular rate, regular rhythm and no murmurs GI non-tender and non-distended Auscultation: normoactive bowel sounds Palpation: soft no CVA tenderness Narrative: Urethral Diego catheter in place. The catheter is draining cloudy yellow nonbloody urine. There is no active draining around the catheter at this time. Testicles/scrotum nontender, no perineum tenderness/subcutaneous emphysema or other findings of Tiffani's gangrene. Back/Spine no CVA tenderness General Back: other FROM Extremity normal to inspection General Extremety ED: Negative for edema, pulses abnormal or tenderness General Extremity: Negative for edema or pulses abnormal Neuro oriented x3, CN's II-XII intact bilaterally and no sensory deficits noted Sensorium / Orientation: awake and alert Motor Exam: strength 5/5 throughout Skin no rashes or lesions noted and no wounds MDM MDM MDM Narrative Medical decision making narrative: Labs show leukocytosis although the patient often has a leukocytosis, it certainly could be acute with this, his urine which was obtained by changing hisFoley does show pyuria and signs of infection, this was treated with IV Rocephinand sent for culture. He has worsening renal failure with a creatinine up to 3.33 is never had a creatinine as high before looking back at his old numbers. Therefore I sent him for a CT of the abdomen/pelvis, there is no evidence of pyelonephritis necessarily, but he had bilateral hydronephrosis with bilateral hydroureter, and a massive prostate that extends to above the pubic bone, and after discussing with Dr. Mckoy with urology, the catheter balloon appears to be within the prostate which may be why he is leaking. He advises changing it to a size larger and coud? advancing all the way and reevaluate with ultrasound. He had in in 18, we were able to obtain a 20 Portuguese coud?, nursing advanced it all the way, patient has some discomfort with this, it is flowing nonbloody urine, and the patient states that his urinary pressure suprapubic symptoms resolved. I looked with ultrasound before the change and after the change, doeslook like the balloon is sitting higher in the bladder. Discussed again with Dr. Mckoy with urology. He advised that it would take a day or 2 for the hydronephrosis to resolve on imaging, so he would not recommend reimaging the patient now. I offered admission to the patient, he states he has an appointment with his urologist in 3 days and does not want to be admitted and feels a lot better and wants to go home. He is not septic although he understands he has a leukocytosis. If the new Diego catheter is placed more proximally and in the bladder appropriately, he should continue to have improvement of his renal function and he should have no more discomfort in his suprapubic area. I am putting him on Cipro after we gave him Rocephin. Dr. Mckoy agrees with all of this and the patient following up with his urologist, we discussed reasons to return to the hospital he is comfortable with that plan. Lab Data Attestation: I reviewed the patient's lab results. Labs: Laboratory Results - last 24 hr 01/25/25 01/25/25 11:55 12:01 WBC 17.8 H RBC 4.54 L Hgb 10.9 L Hct 34.0 L MCV 74.9 L MCH 24.0 L MCHC 32.1 RDW Std Deviation 51.0 H RDW Coeff of Marlene 19.1 H Plt Count 228 MPV 10.8 Immature Gran % (Auto) 0.800 Neut % (Auto) 73.0 H Lymph % (Auto) 9.4 L [place] % (Auto) 15.4 H Eos % (Auto) 1.0 Baso % (Auto) 0.4 Absolute Neuts (auto) 13.0 H Absolute Lymphs (auto) 1.67 Nucleated RBC % 0 Differential Comment SCANNED Diff Path Review May foll Sodium 137 Potassium 4.4 Chloride 106 Carbon Dioxide 17.5 L Anion Gap 14 BUN 50 H Creatinine 3.33 H Estim Creat Clear Calc 20.35 L Est GFR (MDRD) Non-Af 18 L BUN/Creatinine Ratio 14.9 Glucose 247 H Lactic Acid 1.4 Calcium 8.5 Urine Color Straw Urine Clarity Turbid Urine pH 6.0 Ur Specific [place] 1.010 Urine Protein 100 H Urine Glucose (UA) 100 H Urine Ketones Negative Urine Occult Blood 250 H Urine Nitrite Negative Urine Bilirubin Negative Urine Urobilinogen Normal Ur Leukocyte Esterase 500 H Urine RBC 25-50 SEEN Urine WBC >100 SEEN Ur Squamous Epith Cells 0-5 SEEN Urine Bacteria 1+ Urine Mucus 0 SEEN Radiography Diagnostic Testing: Clinical Impression(s) from Imaging Studies Abdomen/Pelvis CT 01/25/25 14:29 IMPRESSION: Bilateral hydronephrosis and hydroureter down to the urinary bladder. Distendedurinary bladder with massive enlargement of the prostate with indentation of the bladder base. I can not rule out a mass at thebase of the bladder. The tip of the Diego catheter is seen within the prostatic urethra. Reading Location: [id number] Management Discussion w/another healthcare provider: Housetrailer Servicer (Dr. Mckoy [facility]) Discharge Plan Triage Chief Complaint: Complaint ED Provider: Greg Ruiz Dx/Rx/DC Orders Clinical Impression: Acute renal failure due to urinary obstruction, Enlarged prostate with urinary obstruction, Acute lower urinary tract infection Instructions: Urinary Tract Infections in Men, ED Urinary Retention, Male Prescriptions: New ciprofloxacin HCl 500 mg tablet 500 mg PO DAILY 7 Days Qty: 7 0RF No Action insulin glargine 100 unit/mL (3 mL) insulin pen 14 unit subcut QHS aspirin 81 mg tablet,chewable 81 mg PO DAILY Patient Comments: PT TAKES IN EVENING atorvastatin 40 mg tablet 40 mg PO QHS pregabalin [Lyrica] 75 mg capsule 75 mg PO BID sitagliptin 25 mg tablet 25 mg PO DAILY amlodipine 10 mg tablet 10 mg PO DAILY glipizide 10 mg tablet 10 mg PO DAILY finasteride 5 mg Tablet 5 mg PO DAILY Qty: 30 1RF ferrous gluconate 324 mg (38 mg iron) tablet 324 mg PO QHS Primary Care Provider: [facility] Referrals: [facility] [Primary Care Provider] - Keep Cezar appointment (with your urologist) Activity Restrictions/Additional Instructions: Your prostate is very large and your catheter was sitting in the prostate. The new catheter should be further up and that should be resolved, resulting in hopefully no more leaking around your catheter. As long as that is the case andyou are still producing urine within the catheter, take the antibiotics as prescribed and follow-up with your urologist as scheduled. If anything worsens or you are leaking a lot of urine around the catheter again, return to the ER for reevaluation. Print Language: Montenegrin Disposition Disposition: Home, Self Care What to do if you have Problems For any increased pain, shortness of breath, bleeding, nausea or vomiting, chestpain, or any unexpected problems, contact your Primary Care Provider. Call [facility] ([phone]) or report to the closest Emergency Room. Call 911 if necessary. 01/25/25 1728 <Electronically signed by Greg Ruiz MD> Cosigner Signature (if applicable): CC: [facility] ~ Signed [facility] Work Phone: [phone] 293-337203-31-2025 Nuclear medicine Diagnostic study note [facility] Imaging Services [address] [place] [address] Renal Scan w/ Pharm Intervent MR#: [id number] Acct: [id number] Name: LORI LYNCH Rep #: [id number] : 1945 M 79 From: John Padilla MD PCP: [facility] Status: REG CLI Study:Renal Scan w/ Pharm Intervent Date of E xam: 01/21/25 Exam# [id number] Ordering Dr: Gian VALDES MAP COMPILER-C PROCEDURE: RENAL SCAN W/ PHARM INTERVENT 01/21/2025 REASON FOR EXAM: ADDIE HYDRO POSSIBLE OBSTUCTION TECHNIQUE: Technetium-99m DTPA intravenously with planar imaging of the abdomen. Immediate bloodflow and delayed renogram images with computer-reconstructed renogram curves. mg Lasix intravenously 15 minutes afterthe radiopharmaceutical. RADIOPHARMACEUTICAL: 11.3 mCi of Mag 3. 10 mg of Lasix intravenously. COMPARISON: None. FINDINGS: Perfusion: Essentially equal. 51% right kidney. 49% left kidney. Time-Activity Curves Left: Time to peak: 19 minutes Right: Time to peak: 22 minutes Differential function: 38% % on the left and 62% % on the right. T-1/2: 118 minutes minutes on the left and 40 minutes minutes on the right. Excretory delay bilaterally more prominent on the left side. NM/Renal Scan w/ Pharm Intervent IMPRESSION: There is evidence of bilateral decrease in renal excretion with decreased renal function of the left kidney. No significant change seen with the injection of Lasix. Reading [facility] CC: JANUARY MASON VALDES; [facility] ~ [employer]arm Installer: Signed [facility]03-21-2025 Discharge summary [facility] Medical Records Department [address] [place] [address] Emergency Department Summary 01/14/25 MR#: [id number] Acct: [id number] Name: LORI LYNCH Rep #:[id number] : 1945 79 From: Greg Ruiz MD PCP: [facility] Status:REG ER Location: ED HPI History of Present Illness Chief Complaint: Diego C/O Informant: patient Narrative Narrative: Patient states that this morning and yesterday with moving around, he is leakingurine from around his Diego catheter. The catheter is still draining urine intothe bag normally and he sees no blood, clots, or any other substance other than transparent yellow urine. He denies any abdominal pain, backpain, nausea, vomiting, testicular pain, penile pain, or fever/chills. He states he has a history of urinary retention and typically gets a catheter every month or so, this 1 was placed 2 days ago and he thinks that it was a different type of catheter than he usually gets, he thinks that is why it is leaking. [facility] Medical History BPH with obstruction/lower urinary tract symptoms UTI (urinary tract infection) Leukocytosis Acute kidney injury Acute lactic acidosis Generalized weakness Diabetes High cholesterol HTN (hypertension) Smoker Prostate enlargement Lung cancer Home Medications ?Medication ?Instructions ?Recorded ?Last Taken ?Type amlodipine 10 mg tablet 10 mg PO DAILY BP 07/10/24 1 11/03/23 History aspirin 81 mg chewable tablet 81 mg PO DAILY blood thi nner 07/10/24 09/03/24 History atorvastatin 40 mg tablet 40 mg PO QPM cholesterol 09/02/24 History glipizide 10 mg tablet 10 mg PO BID diabetes 09/03/24 History insulin glargine 100 unit/mL (3 16 unit subcut QPM margaret betes 07/10/24 09/02/24 History mL) subcutaneous pen pregabalin 75 mg capsule (Lyrica) 75 mg PO BID pain 09/03/24 History sitagliptin 25 mg tablet 25 mg PO DAILY diabetes 06/2709/03/24 History cefdinir 300 mg capsule 300 mg PO BID #10 caps 07/1309/03/24 Rx finasteride 5 mg tablet 5 mg PO DAILY #30 tabs 07/1309/03/24 Rx tamsulosin 0.4 mg capsule 0.4 mg PO BID #60 caps 07/1309/03/24 Rx ciprofloxacin HCl 500 mg tablet 500 mg PO BID #14 tabs 09/03/24 Unknown Rx (Cipro) Allergy/AdvReac Type Severity Reaction Status Date / Time amoxicillin (From Augmentin) Allergy Hives Verified 01/14/25 14:12 clavulanic acid (From Allergy Hives Verified 01/14/25 14:12 Augmentin) lisinopril Allergy Other Verified 01/14/25 14:12 Family History Other Diabetes Surgical History H/O shoulder replacement Social History Smoking Status: Heavy Smoker (>10/day) ROS ROS ED Constitutional Constitutional ED: Denies chills or fever(s) Gastrointestinal Gastrointestinal: Denies abdominal pain, nausea or vomiting Genitourinary Genitourinary ED: Reports other Details: Urine leaking around catheter, see HPI ; Denies dysuria or hematuria Musculoskeletal Musculoskeletal: Denies back pain or neck pain Integumentary Denies rash Neurologic Neurologic: Denies headache(s), paresthesias or weakness EXAM Physical Exam Const Vital Signs: 01/14/25 11:38 01/14/25 13:37 Temperature 97.9 F Temperature Source Temporal Pulse Rate 87 83 Respiratory Rate 16 14 Blood Pressure 161/58 H 149/79 H Blood Pressure Mean 92 102 Pulse Ox 99 98 Oxygen Delivery Method Room Air Room Air Positive well nourished and well developed General Appearance ED: well developed and NAD GI non-tender and non-distended no CVA tenderness Back/Spine no CVA tenderness Neuro oriented x3, CN's II-XII intact bilaterally, no focal motor deficits and no sensory deficits noted Psych mental status grossly normal MDM MDM MDM Narrative Medical decision making narrative: I had nursing manipulate the contents of the balloon for the catheter to see if that helped, but the patient apparently told nursing that he wanted a new catheter placed so they placed 1, it is not leaking, and the patient states he is ready to leave. I do not think he needs to have a urinalysis, given the appearance of his urine and lack of any other symptoms. Discharge Plan Triage Chief Complaint: Diego C/O ED Provider: Greg Ruiz Dx/Rx/DC Orders Clinical Impression: Malfunction of Diego catheter Instructions: Indwelling Urinary Catheter Dc Prescriptions: No Action insulin glargine 100 unit/mL (3 mL) insulin pen 16 unit subcut QPM aspirin 81 mg tablet,chewable 81 mg PO DAILY atorvastatin 40 mg tablet 40 mg PO QPM pregabalin [Lyrica] 75 mg capsule 75 mg PO BID sitagliptin 25 mg tablet 25 mg PO DAILY amlodipine 10 mg tablet 10 mg PO DAILY glipizide 10 mg tablet 10 mg PO BID tamsulosin 0.4 mg Capsule 0.4 mg PO BID Qty: 60 2RF finasteride 5 mg Tablet 5 mg PO DAILY Qty: 30 1RF cefdinir 300 mg capsule 300 mg PO BID Qty: 10 0RF ciprofloxacin HCl [Cipro] 500 mg tablet 500 mg PO BID Qty: 14 0RF [facility] [facility] [facility] [Primary Care Provider] - 3-5 Days if not improving Print Language: Montenegrin Disposition Disposition: Home, Self Care What to do if you have Problems For any increased pain, shortness of breath, bleeding, nausea or vomiting, chestpain, or any unexpected problems, contact your Primary Care Provider. Call [facility] ([phone]) or report tothe closest Emergency Room. Call 911 if necessary. 01/14/25 1426 Cosigner Signature (if applicable): CC: [facility] ~ Signed [facility]03-21-2025 Discharge summary Author Greg Ruiz [facility] Note Date/Time January 14, 2025 2:2 6pm [facility] Medical Records Department [address] [place] [address] Emergency Department Summary 01/14/25 MR#: [id number] Acct: [id number] Name: LORI LYNCH Rep #:[id number] : 1945 79 From: Greg Ruiz MD [facility]CP: [facility] Status:REG ER Location: ED HPI History of Present Illness Chief Complaint: Diego C/O Informant: patient Narrative Narrative: Patient states that this morning and yesterday with moving around, he is leakingurine from around his Diego catheter. The catheter is still draining urine intothe bag normally and he sees no blood, clots, or any other substance other than transparent yellow urine. He denies any abdominal pain, back pain, nausea, vomiting, testicular pain, penile pain, or fever/chills. He states he has a history of urinary retention and typically gets a catheter every month or so, this 1 was placed 2 days ago and he thinks that it was a different type of catheter than he usually gets, he thinks that is why it is leaking. [facility] Medical History BPH with obstruction/lower urinary tract symptoms UTI (urinary tract infection) Leukocytosis Acute kidney injury Acute lactic acidosis Generalized weakness Diabetes High cholesterol HTN (hypertension) Smoker Prostate enlargement Lung cancer Home Medications ?Medication ?Instructions ?Recorded ?Last Taken ?Type amlodipine 10 mg tablet 10 mg PO DAILY BP 07/10/24 1 11/03/23 History aspirin 81 mg chewable tablet 81 mg PO DAILY blood thi nner 07/10/24 09/03/24 History atorvastatin 40 mg tablet 40 mg PO QPM cholesterol 09/02/24 History glipizide 10 mg tablet 10 mg PO BID diabetes 09/03/24 History insulin glargine 100 unit/mL (3 16 unit subcut QPM margaret betes 07/10/24 09/02/24 History mL) subcutaneous pen pregabalin 75 mg capsule (Lyrica) 75 mg PO BID pain 09/03/24 History sitagliptin 25 mg tablet 25 mg PO DAILY diabetes 06/2709/03/24 History cefdinir 300 mg capsule 300 mg PO BID #10 caps 07/1309/03/24 Rx finasteride 5 mg tablet 5 mg PO DAILY #30 tabs 07/1309/03/24 Rx tamsulosin 0.4 mg capsule 0.4 mg PO BID #60 caps 07/1309/03/24 Rx ciprofloxacin HCl 500 mg tablet 500 mg PO BID #14 tabs 09/03/24 Unknown Rx (Cipro) Allergy/AdvReac Type Severity Reaction Status Date / Time amoxicillin (From Augmentin) Allergy Hives Verified 01/14/25 14:12 clavulanic acid (From Allergy Hives Verified 01/14/25 14:12 Augmentin) lisinopril Allergy Other Verified 01/14/25 14:12 Family History Other Diabetes Surgical History H/O shoulder replacement Social History Smoking Status: Heavy Smoker (>10/day) ROS ROS ED Constitutional Constitutional ED: Denies chills or fever(s) Gastrointestinal Gastrointestinal: Denies abdominal pain, nausea or vomiting Genitourinary Genitourinary ED: Reports other Details: Urine leaking around catheter, see HPI ; Denies dysuria or hematuria Musculoskeletal Musculoskeletal: Denies back pain or neck pain Integumentary Denies rash Neurologic Neurologic: Denies headache(s), paresthesias or weakness EXAM Physical Exam Const Vital Signs: 01/14/25 11:38 01/14/25 13:37 Temperature 97.9 F Temperature Source Temporal Pulse Rate 87 83 Respiratory Rate 16 14 Blood Pressure 161/58 H 149/79 H Blood Pressure Mean 92 102 Pulse Ox 99 98 Oxygen Delivery Method Room Air Room Air Positive well nourished and well developed General Appearance ED: well developed and NAD GI non-tender and non-distended no CVA tenderness Back/Spine no CVA tenderness Neuro oriented x3, CN's II-XII intact bilaterally, no focal motor deficits and no sensory deficits noted Psych mental status grossly normal MDM MDM MDM Narrative Medical decision making narrative: I had nursing manipulate the contents of the balloon for the catheter to see if that helped, but the patient apparently told nursing that he wanted a new catheter placed so they placed 1, it is not leaking, and the patient states he is ready to leave. I do not think he needs to have a urinalysis, given the appearance of his urine and lack of any other symptoms. Discharge Plan Triage Chief Complaint: Diego C/O ED Provider: Greg Ruiz Dx/Rx/DC Orders Clinical Impression: Malfunction of Diego catheter Instructions: Indwelling Urinary Catheter Dc Prescriptions: No Action insulin glargine 100 unit/mL (3 mL) insulin pen 16 unit subcut QPM aspirin 81 mg tablet,chewable 81 mg PO DAILY atorvastatin 40 mg tablet 40 mg PO QPM pregabalin [Lyrica] 75 mg capsule 75 mg PO BID sitagliptin 25 mg tablet 25 mg PO DAILY amlodipine 10 mg tablet 10 mg PO DAILY glipizide 10 mg tablet 10 mg PO BID tamsulosin 0.4 mg Capsule 0.4 mg PO BID Qty: 60 2RF finasteride 5 mg Tablet 5 mg PO DAILY Qty: 30 1RF cefdinir 300 mg capsule 300 mg PO BID Qty: 10 0RF ciprofloxacin HCl [Cipro] 500 mg tablet 500 mg PO BID Qty: 14 0RF [facility] [facility] [facility] [Primary Care Provider] - 3-5 Days if not improving Print Language: Montenegrin Disposition Disposition: Home, Self Care What to do if you have Problems For any increased pain, shortness of breath, bleeding, nausea or vomiting, chestpain, or any unexpected problems, contact your Primary Care Provider. Call [facility] ([phone]) or report to the closest Emergency Room. Call 911 if necessary. 01/14/25 1426 <Electronically signed by Greg Ruiz MD> Cosigner Signature (if applicable): CC: [facility] ~ Signed [facility] Work Phone: 1(331) 265-379009-17-2024 [facility] Medical Records Department [address] [place] [address] Discharge Summary 07/13/24 1040 MR#: [id number] Acct: [id number] Name: LORI LYNCH Rep #: [id number] : 1945 78 From: Apple Chavez MD PCP: [facility] Status:DIS IN Location: [facility] [place] [id number] Providers Date of Admission: 07/09/24 Date of Discharge: 07/13/24 [facility] Consult[facility] 07/09/24 22:15 Consult: Urology Routine Consulting Provider: Chucky Mckoy Reason for Consult: BPH diego placement EMERGENT Consult: No MD Notified: Yes Date Notified: 07/09/24 Time Notified: 18:24 Method of Notification: Verbal Reason For Visit: UTI Diagnosis Discharge Diagnosis (1) UTI (urinary tract infection): Status: Acute Code(s): N39.0 - Urinary tract infection, site not specified (2) BPH with obstruction/lower urinary tract symptoms: Status: Acute Code(s): N40.1 - Benign prostatic hyperplasia with lower urinary tract symptoms; N13.8 - Other obstructive and reflux uropathy Plan #Sepsis due to UTI * Sepsis is likely resolved. WBC still elevated at 15. WBC was 31 on admission. * Urine cultures negative and blood cultures also negative so far. CT of the abdomen and pelvis showed mild left hydronephrosis with thick-walled mid to distal ureter concerning for infection. * Continue IV cefepime in light of elevated WBC. #BPH * Had difficult catheter insertion on admission. He had had cystoscopy on the and had a complicated Diego and attempted left stent insertion. * To be discharged with Diego catheter in situ. Urology on board. He is follow- up with urology on outpatient basis. #JOB: * Creatinine was initially 2.73 on admission and is trending downwards. * Continue gentle hydration with IV fluids. * Likely due to obstruction from BPH * Cr today is 2.04 * #Hypertension: On amlodipine #Type 2 diabetes mellitus: * On Lantus 18 units nightly. * Also on glipizide. Insulin sliding scale. * Accuhecks ACHS. Also on sitagliptin. * DVT prophylaxis: heparin Disposition: for likely dc tomorrow if wbc continues to trend downwards Medications at Discharge Home Medications amlodipine 10 mg tablet 10 mg PO DAILY BP 07/10/24 aspirin 81 mg chewable tablet 81 mg PO DAILY blood thinner 07/10/24 atorvastatin 40 mg tablet 40 mg PO QPM cholesterol 07/10/24 ferrous gluconate 324 mg (38 mg iron) tablet 324 mg PO DAILY supplement 07/10/24 glipizide 10 mg tablet 10 mg PO BID diabetes 07/10/24 insulin glargine 100 unit/mL (3 mL) subcutaneous pen 18 unit subcut QPM diabetes 07/10/24 pregabalin 75 mg capsule (Lyrica) 75 mg PO BID pain 07/10/24 sitagliptin 25 mg tablet 25 mg PO DAILY diabetes 07/10/24 cefdinir 300 mg capsule 300 mg PO BID #10 caps 07/13/24 finasteride 5 mg tablet 5 mg PO DAILY #30 tabs 07/13/24 tamsulosin 0.4 mg capsule 0.4 mg PO BID #60 caps 07/13/24 Hospital Course Operations None Procedures None Summary of Care Provided Minutes Spent on Discharge: 55 Hospital Course: Patient is a 78-year-old male with a past medical history as outlined was admitted through the ED on 07/09/2024 with a complaint of generalized feeling of unwellness. His symptoms had worsened over the last 2 to 3 days prior to admission though he had been going on for about a week. He did have a history of recurrent UTI. On admission WBC per labs done was 30.5. Bladder scan showed 450 cc of urine in the bladder. His nurse attempted to place a Diego catheter but due to a significantly enlarged prostate, urology was consulted. CT of the brain showed no acute intracranial pathology and CTA of the head and neck showed no evidence of hemodynamically significant stenosis. CT of the head and neck done did show an incidental finding of a 6 mm nodule in the lateral subpleural region of the right upper lobe he was follow-up with his PCP for repeat imaging as needed for surveillance. He had a Diego catheter inserted by urology. As stated he was managed for sepsis due to UTI. He was placed on IV cefepime. Urine cultures and blood cultures were negative. CT of the abdomen and pelvis showed mild left hydronephrosis with thick-walled mid to distal ureter concerning for infection. Patient also had JOB on admission but this appeared to be more of an JOB on CKD stage III. His creatinine was 2.73 on admission but gradually trended downwards. Creatinine was down to 1.9 at time of discharge. He remained stable and was discharged home on 07/13/2024. His WBC trending out 15 at time of discharge. He felt very well and had no complaints. He was discharged home on 07/13/2024 with a Diego catheter in situ. He was given a referral to urology for management of the Diego catheter. He was also discharged with a prescription for p.o. cefdinir 300 mg twice daily for 5 days. He was also given a prescription for p.o. tamsulos (more content not included)...[facility]02-09-2023 Telephone encounter Note* Telephone Encounter - Chasidy Keenan RN - 12/05/2022 11:03 AM EST Patient called in and states he does not feel that tolterodine has had much of an effect and wantedto see if he could increase his dosage. I advised him per Yadi's note that this medication could take 6-8 weeks to see full affect. He verbalizes understanding and states he will give it more time to work. [facility] [id number] Miscellaneous Notes* Telephone Encounter - Chasidy Keenan RN - 12/05/2022 11:03 AM EST Patient called in and states he does not feel that tolterodine has had much of an effect and wantedto see if he could increase his dosage. I advised him per Yadi's note that this medication could take 6-8 weeks to see full affect. He verbalizes understanding and states he will give it more time to work. * Telephone Encounter - Chasidy Keenan RN - 11/07/2022 4:13 PM EST Spoke with patient and relayed Yadi's note to him verbatim. He verbalizes understanding of allinformation provided, but states he needs prescription [place] [facility] [place]. Rx switched [place] [facility] per patient request. * Telephone Encounter - TALITA Murillo CNP - 11/07/2022 2:17 PM EST Rx for tolterodine (Detrol LA) sent to [facility] in [place]. Please advise him it could take 6-8 weeks to see full effect of the medication. If the medication causes any bothersome side effects such as dry eye, dry mouth, constipation, or difficulty urinating please have him call us. Thanks. * Telephone Encounter - Kimberley Paz LPN - 11/07/2022 9:08 AM EST Returned call to the patient and advised him to contact his PCP for his concerns of gas pain/flatulence. Patient states he feels due to the medication prescribed (trospium) that he is having this problem as a side effect. Patient feels medication is not helping urination symptoms at all. Advised patient he can stop medication if it is bringing no benefit and he feels it is causing undesirable side effects. Patient denies constipation from medication. Advised patient this nurse would send a message to providers about changing medication since current medication is not helping. Per [facility] TE's [facility] not [facility]rbetriq. Patient aware to contact PCP if current gas pain is persistent.Patient voiced understanding. * Telephone Encounter - Marcelino Portillo - 11/07/2022 7:40 AM EST Name of caller: Phil Contact phone number: [phone] Relationship to Patient: patient Provider: [facility] Practice: Uro Chief Complaint/Reason for Call: Pt stating that he has been having gas pain with flatulence. He has tried beano, gas x and nothing has worked. He wants to know if something can be called into [facility] on [address] ph [phone]. Please call to let him know something not too expensive, by the way, will be called in for him or discuss further. Best time of day caller can be reached: Patient advised that office/PCP has 24-48 business hours to return their call: documented in this [facility]01-12-2023 Telephone encounter Note* Telephone Encounter - Chasidy Keenan RN - 11/07/2022 4:13 PM EST Spoke with patient and relayed Yadi's note to him verbatim. He verbalizes understanding of allinformation provided, but states he needs prescription sent [place] [facility]. Rx switched to [facility] per patient request. [facility]01-12-2023 Telephone encounter Note* Telephone Encounter - TALITA Murillo CNP - 11/07/2022 2:17 PM EST Rx for tolterodine (Detrol LA) sent to [facility] in [place]. Please advise him it could take 6-8 weeks to see full effect of the medication. If the medication causes any bothersome side effects such as dry eye, dry mouth, constipation, or difficulty urinating please have him call us. Thanks. [facility]01-12-2023 Telephone encounter Note* Telephone Encounter - Kimberley Paz LPN - 11/07/2022 9:08 AM EST Returned call to the patient and advised him to contact his PCP for his concerns of gas pain/flatulence. Patient states he feels due to the medication prescribed (trospium) that he is having this problem as a side effect. Patient feels medication is not helping urination symptoms at all. Advised patient he can stop medication if it is bringing no benefit and he feels it is causing undesirable side effects. Patient denies constipation from medication. Advised patient this nurse would send a message to providers about changing medication since current medication is not helping. Per previous TE's the [facility] will not [facility] for myrbetriq. Patient aware to contact PCP if current gas pain is persistent.Patient voiced understanding. [facility]01-12-2023 Telephone encounter Note* Telephone Encounter - Marcelino Portillo - 11/07/2022 7:40 AM EST Name of caller: Phil Contact phone number: [phone] Relationship to Patient: patient Provider: [facility] Practice: Uro Chief Complaint/Reason for Call: Pt stating that he has been having gas pain with flatulence. He has tried beano, gas x and nothing has worked. He wants to know if something can be called into [facility] on [address] ph [phone]. Please call to let him know something not too expensive, by the way, will be called in for him or discuss further. Best time of day caller can be reached: Patient advised that office/PCP has 24-48 business hours to return their call: [id number] Telephone encounter Note* Telephone Encounter - Kari Warren LPN - 11/05/2022 11:53 AM EST Patient informed of medication increase and needing 6 weeks follow up and PVR. Patient verbalized understanding and have no further questions or concerns at this time. [id number] Miscellaneous Notes* Telephone Encounter - Kari Warren LPN - 11/05/2022 11:53 AM EST Patient informed of medication increase and needing 6 weeks follow up and PVR. Patient verbalized understanding and have no further questions or concerns at this time. * Addendum Note - TALITA Man CNP - 11/04/2022 2:42 PM ESTAddended by: SANDI PENA on: 11/04/2022 02:42 PM Modules accepted: Orders * Telephone Encounter - TALITA Man CNP - 11/04/2022 2:41 PM EST Okay increased trospium to 20mg BID but still needs someone to schedule an appointment in 6 weeks to assess medication effectiveness and for PVR check. Thanks * Telephone Encounter - Chasidy Keenan RN - 11/04/2022 2:31 PM EST Called and spoke with patient. He states [facility]q. He wants to know if he can try a stronger dose of trospium instead. Please advise. * Addendum Note - TALITA Ruiz CNP - 11/04/2022 9:08 AM ESTAddended by: LOREN TREADWELL on: 11/04/2022 09:08 AM Modules accepted: Orders * Telephone Encounter - TALITA Ruiz CNP - 11/04/2022 9:06 AM EST Rx sent [place] [facility] [place] Myrbetric 25 mg for patient to try. Please schedule an appointment in 6 weeks to assess medication effectiveness and for PVR check. Thanks * Telephone Encounter - Trice Reid RN - 11/04/2022 8:32 AM EST Patient calling in on clinical vm stating that the trospium has been ineffective on his symptoms, patient states he's urinating every 20 minutes throughout the day and every hour at night, patient isvery frustrated at the lack of symptom relief that he's experienced. He would like to try somethingelse. Please advise, thank you. * Telephone Encounter - Kari Warren LPN - 10/25/2022 12:28 PM EST Lvm that script was sent into [facility] pharmacy today. Call if he has any further questions or concerns. * Telephone Encounter - TALITA Man CNP - 10/25/2022 12:21 PM EST Sent. Please let patient know * Telephone Encounter - Franky Huang RN - 10/25/2022 12:08 PM EST Pt called in and stated, Dr Camarillo was supposed to send in [facility] to the [facility], but [facility]'t [facility] yet. Someone needs to get their act together! I need this medicine! You need to let me know what's going on! Upon investigation, Trospium appears to have been sent to [facility] in [place]. Pt would prefer Rx sent to [facility]. Pharmacy in chart and below. [facility] [place] - [address] [[id number]] Routing to Dr Camarillo and APPs to send to [facility]. Thank you. documented in this encounterSMercy Health St. Vincent Medical [id number] Note* Addendum Note - TALITA Man CNP - 11/04/2022 2:42 PM ESTAddended by: SANDI PENA on: 11/04/2022 02:42 PM Modules accepted: Orders [facility] [id number] Note* Addendum Note - TALITA Man CNP - 11/04/2022 2:42 PM ESTAddended by: SANDI PENA on: 11/04/2022 02:42 PM Modules accepted: Orders [facility] [id number] Note* Addendum Note - TALITA Man CNP - 11/04/2022 2:42 PM ESTAddended by: SANDI PENA on: 11/04/2022 02:42 PM Modules accepted: Orders [facility] [id number] Note* Addendum Note - TALITA Man CNP - 11/04/2022 2:42 PM ESTAddended by: SANDI PENA on: 11/04/2022 02:42 PM Modules accepted: Orders [facility] [id number] Note* Addendum Note - TALITA Man CNP - 11/04/2022 2:42 PM ESTAddended by: SANDI PENA on: 11/04/2022 02:42 PM Modules accepted: Orders [facility] [id number] Miscellaneous Notes* Addendum Note - TALITA Man CNP - 11/04/2022 2:42 PM ESTAddended by: SANDI PENA on: 11/04/2022 02:42 PM Modules accepted: Orders * Telephone Encounter - TALITA Man CNP - 11/04/2022 2:41 PM EST Okay increased trospium to 20mg BID but still needs someone to schedule an appointment in 6 weeks to assess medication effectiveness and for PVR check. Thanks * Telephone Encounter - Chasidy Keenan RN - 11/04/2022 2:31 PM EST Called and spoke with patient. He states [facility]q. He wants to know if he can try a stronger dose of trospium instead. Please advise. * Addendum Note - TALITA Ruiz CNP - 11/04/2022 9:08 AM ESTAddended by: LOREN TREADWELL on: 11/04/2022 09:08 AM Modules accepted: Orders * Telephone Encounter - TALITA Ruiz CNP - 11/04/2022 9:06 AM EST Rx sent [facility] for Myrbetric 25 mg for patient to try. Please schedule an appointment in 6 weeks to assess medication effectiveness and for PVR check. Thanks * Telephone Encounter - Trice Reid RN - 11/04/2022 8:32 AM EST Patient calling in on clinical vm stating that the trospium has been ineffective on his symptoms, patient states he's urinating every 20 minutes throughout the day and every hour at night, patient isvery frustrated at the lack of symptom relief that he's experienced. He would like to try somethingelse. Please advise, thank you. * Telephone Encounter - Kari Warren LPN - 10/25/2022 12:28 PM EST Lvm that script was sent into [facility] pharmacy today. Call if he has any further questions or concerns. * Telephone Encounter - TALITA Man CNP - 10/25/2022 12:21 PM EST Sent. Please let patient know * Telephone Encounter - Franky Huang RN - 10/25/2022 12:08 PM EST Pt called in and stated, Dr Camarillo was supposed to send in [facility], but [facility]. Someone needs to get their act together! I need this medicine! You need to let me know what's going on! Upon investigation, Trospium appears to have been sent to [facility] in [place]. Pt would prefer Rx sent to [facility]. Pharmacy in chart and below. [facility] [place] [place] - [address] [address] [[id number]] Routing to Dr Camarillo and APPs to send to [facility]. Thank you. documented in this [facility]01-09-2023 Telephone encounter Note* Telephone Encounter - TALITA Man CNP - 11/04/2022 2:41 PM EST Okay increased trospium to 20mg BID but still needs someone to schedule an appointment in 6 weeks to assess medication effectiveness and for PVR check. Thanks [facility] [id number] Telephone encounter Note* Telephone Encounter - Chasidy Keenan RN - 11/04/2022 2:31 PM EST Called and spoke with patient. He states [facility] denied Myrbetriq. He wants to know if he can try a stronger dose of trospium instead. Please advise. [facility] [id number] Note* Addendum Note - TALITA Ruiz CNP - 11/04/2022 9:08 AM ESTAddended by: LOREN TREADWELL on: 11/04/2022 09:08 AM Modules accepted: Orders [address]09-2023 Note* Addendum Note - TALITA Ruiz CNP - 11/04/2022 9:08 AM ESTAddended by: LOREN TREADWELL on: 11/04/2022 09:08 AM Modules accepted: Orders [address]09-2023 Note* Addendum Note - TALITA Ruiz CNP - 11/04/2022 9:08 AM ESTAddended by: LOREN TREADWELL on: 11/04/2022 09:08 AM Modules accepted: Orders [address]09-2023 Note* Addendum Note - TALITA Ruiz CNP - 11/04/2022 9:08 AM ESTAddended by: LOREN TREADWELL on: 11/04/2022 09:08 AM Modules accepted: Orders [address]09-2023 Note* Addendum Note - TALITA Ruiz CNP - 11/04/2022 9:08 AM ESTAddended by: LOREN TREADWELL on: 11/04/2022 09:08 AM Modules accepted: Orders [address]09-2023 Telephone encounter Note* Telephone Encounter - TALITA Ruiz CNP - 11/04/2022 9:06 AM EST Rx sent [place] [facility] for Myrbetric 25 mg for patient to try. Please schedule an appointment in 6 weeks to assess medication effectiveness and for PVR check. Thanks [facility]01-09-2023 Telephone encounter Note* Telephone Encounter - Trice Reid RN - 11/04/2022 8:32 AM EST Patient calling in on clinical vm stating that the trospium has been ineffective on his symptoms, patient states he's urinating every 20 minutes throughout the day and every hour at night, patient isvery frustrated at the lack of symptom relief that he's experienced. He would like to try somethingelse. Please advise, thank you. [facility]12-30-2022 Telephone encounter Note* Telephone Encounter - Kari Warren LPN - 10/25/2022 12:28 PM EST Lvm that script was sent into [facility] pharmacy today. Call if he has any further questions or concerns. [facility]12-30-2022 Telephone encounter Note* Telephone Encounter - TALITA Man CNP - 10/25/2022 12:21 PM EST Sent. Please let patient know [facility]12-30-2022 Telephone encounter Note* Telephone Encounter - Franky Huang RN - 10/25/2022 12:08 PM EST Pt called in and stated, Dr Camarillo was supposed to send in [facility] but [facility]. Someone needs to get their act together! I need this medicine! You need to let me know what's going on! Upon investigation, Trospium appears to have been sent to [facility] in [place]. Pt would prefer Rx sent to [facility]. Pharmacy in chart and below. [facility] [place] [place] - [address] [address] [[id number]] Routing to Dr Camarillo and APPs to send to [facility]. Thank you. [facility] [id number] NoteI agree with plan of care. He can call us if symptoms persist and we can redo urine testing. Closing encounter.[facility]10-20-2022 Hospital Discharge instructions* Discharge Instructions* Aurora Negro RN - 08/15/2022 4:22 PM [...] your scheduled surgery time. Please bring your [facility] folder and medication list with you day of surgery. We encourage you to write down any questions you may have for the surgeon, anesthesiologist, or other members of the surgical team and bring it with you the day of surgery. Please bring photo ID and insurance information. You may use the free [place] parking at the main entrance on [address] [place] [address], or the free parking in the [facility] parking deck * Attachments The following attachments cannot be sent through Care Everywhere. * Cystoscopy: Post-op (Montenegrin) documented in [facility] Work Phone: Evaluation noteNo assessment information available [facility] Work Phone: Evaluation note* Diagnosis Pre-op testing- Primary Preoperative examination, unspecified documented in this encounter [facility] Work Phone: Evaluation note* Diagnosis Frequency of urination Urinary frequency documented in this encounter [facility]Eval[facility]* Diagnosis Frequency of urination Urinary frequency documented in this encounter [facility]* Diagnosis Urgency of urination- Primary [facility] Additional Instructions Your prostate is very large and your catheter was sitting in the prostate. The new catheter should be further up and that should be resolved, resulting in hopefully no more leaking around your catheter. As long as that is the case and you are still producing urine within the catheter, take the antibiotics as prescribed and follow-up with your urologist as scheduled. If anything worsens or you are leaking a lot of urine around the catheter again, return to the ER for reevaluation.[facility] Work Phone: Reason for referral (narrative)No reason for referral information availableWLakeHealth TriPoint Medical Center Work Phone: Chief Complaint and Reason for Visit Chief Complaint MALIGNANT NEOPLASM O F LOWER LOBE SOB Chief Complaint HX LUNG CANCER Chief Complaint Personal hx of other malignant neoplasm Chief Complaint KIDNEY FAILURE; H/O LUNG CANCER Chief Complaint KIDNEY FAILURE; H/O LUNG CANCER NEOPLASM OF TRACHEA, BRONCHUS AND LUNG Chief Complaint Admit Date diego November 13, 2024 1 0:01pm leaking diego January 14, 2025 11: 36am Chief Complaint Admit Date diego November 13, 2024 1 0:01pm leaking diego January 14, 2025 11: 36am HYDRONEPHROSIS January 21, 2025 10: 28am diego complications possible uti January 252024 11:17am Chief Complaint Admit Date diego November 13, 2024 1 0:01pm leaking diego January 14, 2025 11: 36am HYDRONEPHROSIS January 21, 2025 10: 28am diego complications possible uti January 252024 11:17am CATH LEAKING March 02, 2025 9:44am Chief Complaint Admit Date leaking diego January 14, 2025 11: 36am HYDRONEPHROSIS January 21, 2025 10: 28am diego complications possible uti January 252024 11:17am CATH LEAKING March 02, 2025 9:44am LUNG CANCER March 29, 2025 8:23a m Advance Directives No Advanced Directives Records Found Advance Directive Response Recorded Date/ Time Living Will No March 14, 2022 1 2:35pm Power of Sales And Marketing Assistant No March 14, 2022 12:35pm Advance Directive Response Recorded Date/ Time Living Will No March 14, 2022 1 1:35am Power of Sales And Marketing Assistant No March 14, 2022 11:35am Latest Code Status on File Code Status Date Activated Date Inactivated Comments Full Code 08/23/2022 5:17 PM 08/25/2022 3:35 PM Advance Directive Response Recorded Date/ Time Living Will Yes November 13 11:14pm Do you have a Healthcare Power of Sales And Marketing Assistant? Yes November 13, 2024 11:14pm Name of Medical Power of Sales And Marketing Assistant - LARA November 13, 2024 11:14pm Living Will No January 14, 2025 12:37pm Do you have a Healthcare Power of Sales And Marketing Assistant? No January 14, 2025 12:37pm Advance Directive Response Recorded Date/ Time Living Will No January 25, 2025 11:28am Do you have a Healthcare Power of Sales And Marketing Assistant? No January 25, 2025 11:28am Living Will Yes November 13 11:14pm Do you have a Healthcare Power of Sales And Marketing Assistant? Yes November 13, 2024 11:14pm Name of Medical Power of Sales And Marketing Assistant - LARA November 13, 2024 11:14pm Living Will No January 14, 2025 12:37pm Do you have a Healthcare Power of Sales And Marketing Assistant? No January 14, 2025 12:37pm Advance Directive Response Recorded Date/ Time Living Will No January 25, 2025 11:28am Do you have a Healthcare Power of Sales And Marketing Assistant? No January 25, 2025 11:28am Living Will Yes November 13 11:14pm Do you have a Healthcare Power of Sales And Marketing Assistant? Yes November 13, 2024 11:14pm Name of Medical Power of Sales And Marketing Assistant - LARA November 13, 2024 11:14pm Living Will No January 14, 2025 12:37pm Do you have a Healthcare Power of Sales And Marketing Assistant? No January 14, 2025 12:37pm Do you have a Healthcare Power of Sales And Marketing Assistant? Yes March 02, 2025 11:09am Name of Medical Power of Sales And Marketing Assistant March 02, 2025 11:09am Advance Directive Response Recorded Date/ Time Living Will No January 25, 2025 11:28am Do you have a Healthcare Power of Sales And Marketing Assistant? No January 25, 2025 11:28am Living Will No January 14, 2025 12:37pm Do you have a Healthcare Power of Sales And Marketing Assistant? No January 14, 2025 12:37pm Do you have a Healthcare Power of Sales And Marketing Assistant? Yes March 02, 2025 11:09am Name of Medical Power of Sales And Marketing Assistant March 02, 2025 11:09am Summary Purpose Family History No Family History Records Found Relationship Condition Age at Onset Recorded Date/T saniya Not Specified Diabetes mellitus Unknown Additional Source Comments Goals (unrecognized section and content) Goals may be documented in a n alternate sectionGoals may be documented in an alternate sectionGoals may be documented in an alternate sectionGoals may be documented in an alternate sectionGoals may be documented in an alternate sectionGoals may be documented in an alternate sectionGoals may be documented in an alternate sectionGoals may be documented in an alternate sectionGoals may be documented in an alternate sectionGoals may be documented in an alternate section Care Teams (unrecognized sec tion and content) Lumber Grader Relationship Specialty Start Date End Date Yolis Musa PA-C [id number] [place] [address] PCP - General Gastroenterology 05/30/22 Team Status: Active Member Role Status Dates ESTELA GUTIÉRREZ Primary Care Provider Active Team Status: Inactive Member Role Status Dates BROCK PALMER Primary Care Provider Active VIVIAN GOMES Attending Provider, Referring Provider A ctive Team Status: Active Member Role Status Dates No Primary Care Physician Primary Care Provider Active Team Status: Inactive Member Role Status Dates VIVIAN GOMES Attending Provider, Referring Provider A ctive No Primary Care Physician Primary Care Provider Active Team Status: Inactive Member Role Status Dates No Primary Care Physician Primary Care Provider Active VIVIAN GOMES Attending Provider, Referring Provider A ctive Team Status: Inactive Member Role Status Dates No Primary Care Physician Primary Care Provider Active MITCH PORTILLO Attending Provider, Referring Provider Ac tive Lumber Grader Relationship Specialty Start Date End Date Yolis Musa PCP - General 05/30/22 Sintia Burger DO [address] [place] [address] Surgeon Urology 08/25/22 Franc Zambrano MD [address] [place] [address] Surgeon Urology 08/25/22 Heri Camarillo MD [address] [place] [address] Surgeon Urology 09/16/22 Lumber Grader Relationship Specialty Start Date End Date Yolis Musa PCP - General 05/30/22 Sintia Burger DO [address] [place] [address] Surgeon Urology 08/25/22 Franc Zambrano MD [address] [place] [address] Surgeon Urology 08/25/22 Heri Camarillo MD [address] [place] [address] Surgeon Urology 09/16/22 Lumber Grader Relationship Specialty Start Date End Date Yolis Musa PCP - General 05/30/22 Sintia Burger DO [address] [place], [place] [id number] Surgeon Urology 08/25/22 Franc Zambrano MD [address] [place] [address] Surgeon Urology 08/25/22 Heri Camarillo MD [address] [place] [address] Surgeon Urology 09/16/22 Team Status: Active Member Role Status Dates [facility] Primary Care Provider Active Team Status: Inactive Member Role Status Dates [facility] Primary Care Provider Active Start: November 13, 2024 End: November 13, 2024 Dr. Rowdy Shearer DO Attending Provider Active Start: November 13, 2024 End: November 13, 2024 Dr. Rowdy Shearer DO Emergency Provider Active Start: November 13, 2024 End: November 13, 2024 Team Status: Inactive Member Role Status Dates [facility] Primary Care Provider Active Start: January 14, 2025 End: January 14, 2025 Dr. Greg Ruiz MD Emergency Provider Active Start: January 14, 2025 End: January 14, 2025 Team Status: Inactive Member Role Status Dates [facility] Primary Care Provider Active Start: January 14, 2025 End: January 14, 2025 Dr. Greg Ruiz MD Attending Provider Active Start: January 14, 2025 End: January 14, 2025 Dr. Greg Ruiz MD Emergency Provider Active Start: January 14, 2025 End: January 14, 2025 Team Status: Inactive Member Role Status Dates [facility] Primary Care Provider Active Start: January 21, 2025 End: January 21, 2025January MASON VALDES Attending Provider Active St art: January 21, 2025 End: January 21, 2025January MASON VALDES Referring Provider Active St art: January 21, 2025 End: January 21, 2025 Team Status: Active Member Role Status Dates [facility] Primary Care Provider Active Start: January 25, 2025 Dr. Greg Ruiz MD Emergency Provider Active Start: January 25, 2025 Team Status: Inactive Member Role Status Dates [facility] Primary Care Provider Active Start: January 25, 2025 End: January 25, 2025 Dr. Greg Ruiz MD Emergency Provider Active Start: January 25, 2025 End: January 25, 2025 Team Status: Inactive Member Role Status Dates [facility] Primary Care Provider Active Start: January 25, 2025 End: January 25, 2025 Dr. Greg Ruiz MD Attending Provider Active Start: January 25, 2025 End: January 25, 2025 Dr. Greg Ruiz MD Emergency Provider Active Start: January 25, 2025 End: January 25, 2025 Team Status: Inactive Member Role Status Dates [facility] Primary Care Provider Active Start: March 02, 2025 End: March 02, 2025 Dr. Clayton Croft DO Emergency Provider Active Start: March 02, 2025 End: March 02, 2025 Team Status: Inactive Member Role Status Dates [facility] Primary Care Provider Active Start: March 02, 2025 End: March 02, 2025 Dr. Clayton Croft DO Attending Provider Active Start: March 02, 2025 End: March 02, 2025 Dr. Clayton rCoft DO Emergency Provider Active Start: March 02, 2025 End: March 02, 2025 Team Status: Inactive Member Role Status Dates [facility] Primary Care Provider Active Start: March 24, 2025 End: March 24, 2025 MASON Tejada Attending Provider Active Star t: March 24, 2025 End: March 24, 2025 MASON Tejada Referring Provider Active Star t: March 24, 2025 End: March 24, 2025 Team Status: Inactive Member Role Status Dates [facility] Primary Care Provider Active Start: March 29, 2025 End: March 29, 2025 IRMA GOMES Attending Provider Active Sta rt: March 29, 2025 End: March 29, 2025 IRMA GOMES Referring Provider Active Sta rt: March 29, 2025 End: March 29, 2025 (unrecognized sect ion and content) No Status Records FoundNo Status Records FoundNo Status Records FoundNo Status Records Found INFORMATION SOURCE (unrecogn ized section and content) DATE CREATED AUTHOR 08/24/2022 [facility] [employer] DATE CREATED AUTHOR AUTHOR'S ORGANIZ ATION 12/06/2022 [facility] [employer] [facility] DATE CREATED AUTHOR AUTHOR'S ORGANIZ ATION 03/23/2025 [facility] DATE CREATED AUTHOR AUTHOR'S ORGANIZ ATION 04/02/2025 [facility] Reason for Visit (unrecogniz ed section and content) Reason Onset Date Comments Medication Question 10/25/2022 Reason Onset Date Comments Gas 11/07/2022 Pt stating that he has been having gas pain with flatulence. He has tried beano, gas x and nothing has worked. He wants to know if something can be called into [facility] on [address] ph [phone]. Please call to let him know something not too expensive, by the way, will be called in for him or discuss further. FOR RECORDS PERTAINING TO PATIENTS WHO ARE [...] BE BASED ON THE PRIMARY CLINICAL RECORDS. [employer] provides no warranty or guarantee of the accuracy or completeness of information in this document.
== END | disposition home or self-care (01) ==
DX: C34.90 Malignant neoplasm of unspecified part of unspecified bronchus or lung (principal)
CPT/HCPCS: 78815; A9552

== ENCOUNTER 2025-04-29 13:02 | Emergency (ER) | payer OTHER, SELFPAY ==
[2025-04-29 13:03] VITALS: BP 145/74; PULSE 95; RESP 18; TEMP 37.2; O2SAT 99; BMI 32.9
[2025-04-29 14:20] VITALS: BP 135/67; PULSE 76; RESP 15; TEMP 36.6; O2SAT 95
[2025-04-29 15:43] VITALS: BP 164/75; PULSE 92; RESP 16; TEMP 36.4; O2SAT 98; BMI 32.9
[2025-04-29 15:45] VITALS: BP 156/81; PULSE 78; RESP 12; O2SAT 98
[2025-04-29 16:39] VITALS: BP 144/62; PULSE 80; RESP 14; TEMP 37; O2SAT 95
== END 2025-04-29 16:43 | disposition home or self-care (01) ==
PROVIDERS: Emergency Provider Emergency Medicine; Visit Provider Emergency Medicine
DX: T83.031A Leakage of indwelling urethral catheter, initial encounter (principal); E11.9 Type 2 diabetes mellitus without complications; Z79.4 Long term (current) use of insulin; E78.00 Pure hypercholesterolemia, unspecified; I10 Essential (primary) hypertension; N40.0 Benign prostatic hyperplasia without lower urinary tract symptoms; Z85.118 Personal history of other malignant neoplasm of bronchus and lung; Z79.899 Other long term (current) drug therapy; Z79.82 Long term (current) use of aspirin; Z79.84 Long term (current) use of oral hypoglycemic drugs; Z96.619 Presence of unspecified artificial shoulder joint; F17.200 Nicotine dependence, unspecified, uncomplicated
CPT/HCPCS: 51702; 99283

== ENCOUNTER 2025-05-08 07:09 | Emergency (ER) | payer OTHER, SELFPAY ==
[2025-05-08 07:11] VITALS: BP 173/76; PULSE 103; RESP 20; TEMP 36.8; O2SAT 97; BMI 33.0
--- NOTE | 2025-05-08 07:36 | EDS_ITS ---
HPI History of Present Illness Chief Complaint: Complaint Detail of Chief Complaint: Hematuria Informant: patient Pain Onset: Yesterday Context: Sudden Onset Timing: Continuous Worsened by: Nothing Relieved by: Nothing Related History Enlarged Prostate: Yes Narrative Narrative: Patient presents with hematuria that began yesterday. Patient states it began rather suddenly. Patient states it has been constant. Patient has a chronic indwelling [place] catheter. Patient had a change last week. Patient denies any dysuria. Patient denies any fevers or chills. Patient admits to some chronic back pain but denies any worsening back pain. Patient denies any nausea or vomiting. [facility] Medical History (Updated 05/08/25 @ 09:[address] William Seals, DO) BPH with obstruction/lower urinary tract symptoms UTI (urinary tract infection) Leukocytosis Acute kidney injury Acute lactic acidosis Generalized weakness Diabetes High cholesterol HTN (hypertension) Smoker Prostate enlargement Lung cancer Home Medications ?Medication ?Instructions ?Recorded ?Last Taken ?Type amlodipine 10 mg tablet 10 mg PO DAILY BP 07/10/24 0 01/25/25 History aspirin 81 mg chewable tablet 81 mg PO DAILY blood thi nner 07/10/24 01/24/25 History atorvastatin 40 mg tablet 40 mg PO QHS cholesterol 01/24/25 History glipizide 10 mg tablet 10 mg PO DAILY diabetes 06/2701/25/25 History insulin glargine 100 unit/mL (3 14 unit subcut QHS margaret betes 07/10/24 01/24/25 History mL) subcutaneous pen pregabalin 75 mg capsule (Lyrica) 75 mg PO BID pain 01/25/25 History sitagliptin 25 mg tablet 25 mg PO DAILY diabetes 06/2701/25/25 History finasteride 5 mg tablet 5 mg PO DAILY #30 tabs 07/1301/25/25 Rx ferrous gluconate 324 mg (38 mg 324 mg PO QHS 01/25/25 01/24/25 History iron) tablet ciprofloxacin HCl 500 mg tablet 500 mg PO DAILY 3 days #3 TABLETS 05/08/25 Unknown Rx Allergy/AdvReac Type Severity Reaction Status Date / Time amoxicillin (From Augmentin) Allergy Hives Verified 05/08/25 07:13 clavulanic acid (From Allergy Hives Verified 05/08/25 07:13 Augmentin) lisinopril Allergy Other Verified 05/08/25 07:13
--- NOTE | 2025-05-08 07:36 | EX.ED.GUMALE ---
HPI History of Present Illness Chief Complaint: Complaint Detail of Chief Complaint: Hematuria Informant: patient Pain Onset: Yesterday Context: Sudden Onset Timing: Continuous Worsened by: Nothing Relieved by: Nothing Related History Enlarged Prostate: Yes Narrative Narrative: Patient presents with hematuria that began yesterday. Patient states it began rather suddenly. Patient states it has been constant. Patient has a chronic indwelling Diego catheter. Patient had a change last week. Patient denies any dysuria. Patient denies any fevers or chills. Patient admits to some chronic back pain but denies any worsening back pain. Patient denies any nausea or vomiting. [facility] Medical History (Updated 05/08/25 @ 09:[address] William Seals, DO) BPH with obstruction/lower urinary tract symptoms UTI (urinary tract infection) Leukocytosis Acute kidney injury Acute lactic acidosis Generalized weakness Diabetes High cholesterol HTN (hypertension) Smoker Prostate enlargement Lung cancer Home Medications ?Medication ?Instructions ?Recorded ?Last Taken ?Type amlodipine 10 mg tablet 10 mg PO DAILY BP 07/10/24 01/25/25 History aspirin 81 mg chewable tablet 81 mg PO DAILY blood thinner 07/10/24 01/24/25 History atorvastatin 40 mg tablet 40 mg PO QHS cholesterol 07/10/24 01/24/25 History glipizide 10 mg tablet 10 mg PO DAILY diabetes 07/10/24 01/25/25 History insulin glargine 100 unit/mL (3 14 unit subcut QHS diabetes 07/10/24 01/24/25 History mL) subcutaneous pen pregabalin 75 mg capsule (Lyrica) 75 mg PO BID pain 07/10/24 01/25/25 History sitagliptin 25 mg tablet 25 mg PO DAILY diabetes 07/10/24 01/25/25 History finasteride 5 mg tablet 5 mg PO DAILY #30 tabs 07/13/24 01/25/25 Rx ferrous gluconate 324 mg (38 mg 324 mg PO QHS 01/25/25 01/24/25 History iron) tablet ciprofloxacin HCl 500 mg tablet 500 mg PO DAILY 3 days #3 TABLETS 05/08/25 Unknown Rx Allergy/AdvReac Type Severity Reaction Status Date / Time amoxicillin (From Augmentin) Allergy Hives Verified 05/08/25 07:13 clavulanic acid (From Allergy Hives Verified 05/08/25 07:13 Augmentin) lisinopril Allergy Other Verified 05/08/25 07:13 Family History Other Diabetes Surgical History H/O shoulder replacement Social History Smoking Status: Heavy Smoker (>10/day) ROS ROS ED Constitutional Constitutional ED: Denies chills or fever(s) Eyes Eyes: Denies blurry vision or change in vision ENT ENT ED: Denies rhinorrhea or sore throat Cardiovascular Cardiovascular: Denies chest pain or palpitations Respiratory/Chest Respiratory/Chest: Denies cough or dyspnea Gastrointestinal Gastrointestinal: Denies nausea or vomiting Genitourinary Genitourinary ED: Reports hematuria; Denies dysuria Musculoskeletal Musculoskeletal: Reports back pain; Denies neck pain Integumentary Denies abscess or rash Neurologic Neurologic: Denies headache(s) or weakness Allergic/Immunologic Allergic/Immunologic ED: Denies mouth swelling or urticaria EXAM Physical Exam Const Vital Signs: 05/08/25 07:11 Temperature 98.3 F Temperature Source Oral Pulse Rate 103 H Respiratory Rate 20 H Blood Pressure 173/76 H Blood Pressure Mean 108 Pulse Ox 97 Oxygen Delivery Method Room Air Positive well nourished and well developed Constitutional Narrative: BMI is 33.1. General Appearance ED: well developed and NAD HEENT Reports moist mucous membranes normocephalic and atraumatic Neck supple and no JVD Resp normal respiratory effort and clear to auscultation bilaterally Cardio regular rate and regular rhythm GI non-tender and non-distended Palpation: soft Narrative: There is bloody urine in the Diego catheter bag. Neuro oriented x3, CN's II-XII intact bilaterally, moves all extremities, no focal motor deficits and no sensory deficits noted Sensorium / Orientation: alert Motor Exam: strength 5/5 throughout Psych mental status grossly normal MDM MDM MDM Narrative Medical decision making narrative: Differential diagnosis includes urinary tract infection, and hemorrhagic cystitis. Urinalysis will be obtained to assess for urinary tract infection. History & Record Review Additional record(s) reviewed:: Prior ED visit and Prior labs Lab Data Attestation: I reviewed the patient's lab results. Lab results narrative: Urinalysis was reviewed. Leukocyte esterase was 500. There were greater than 100 white blood cells seen. There is no bacteria noted. Occult blood was 250. There are greater than 100 red blood cells noted. Labs: Laboratory Results - last 24 hr 05/08/25 07:55 Urine Color Yellow Urine Clarity Cloudy Urine pH 6.5 Ur Specific Spring 1.010 Urine Protein 100 H Urine Glucose (UA) 100 H Urine Ketones Negative Urine Occult Blood 250 H Urine Nitrite Negative Urine Bilirubin Negative Urine Urobilinogen Normal Ur Leukocyte Esterase 500 H Urine RBC > 100 SEEN Urine WBC >100 SEEN Ur Squamous Epith Cells 0 SEEN Urine Bacteria 0 SEEN Urine Mucus 0 SEEN Treatment and Re-Evaluation Narrative: The Diego catheter was irrigated. This cleared up after irrigation. Patient was advised of his findings. Urine culture will be obtained to assess for urinary tract infection. I will cover the patient with a short course of Cipro. Patient was instructed to follow-up with his urologist as scheduled. Patient was instructed to return if worse in any way. Patient understood and was agreeable with the plan. All questions were answered. Discharge Plan Triage Chief Complaint: Complaint ED Provider: William Seals Dx/Rx/DC Orders Clinical Impression: Hematuria, BPH with obstruction/lower urinary tract symptoms Instructions: ED Hematuria Prescriptions: Continued ciprofloxacin HCl 500 mg tablet 500 mg PO DAILY 3 Days Qty: 3 0RF No Action insulin glargine 100 unit/mL (3 mL) insulin pen 14 unit subcut QHS aspirin 81 mg tablet,chewable 81 mg PO DAILY Patient Comments: PT TAKES IN EVENING atorvastatin 40 mg tablet 40 mg PO QHS pregabalin [Lyrica] 75 mg capsule 75 mg PO BID sitagliptin 25 mg tablet 25 mg PO DAILY amlodipine 10 mg tablet 10 mg PO DAILY glipizide 10 mg tablet 10 mg PO DAILY finasteride 5 mg Tablet 5 mg PO DAILY Qty: 30 1RF ferrous gluconate 324 mg (38 mg iron) tablet 324 mg PO QHS Primary Care Provider: [facility] Referrals: Chucky Mckoy MD [Med Staff - Active Staff] - [facility] [place] [Primary Care Provider] - 3-5 Days Print Language: Citizen Of [place] Disposition Disposition: Home, Self Care
[2025-05-08 08:03] LABS: Mucous, Urine 0 SEEN /hpf (<or=2+); Squamous Epithelial Cells - UA 0 SEEN /hpf (0-5)
--- OUTSIDE RECORDS SUMMARY | 2025-05-08 08:03 | XMS RPT_ITS | CCD ---
Author Organization [facility] CliniSyaz Care Team Providers Care Aircraft Worker Name Role Phone Yolis Musa PA-C Primary Care Provider PROVIDER, UNKNOWN Referring Unavailable Yolis Musa Primary Care Unavailable Heri Camarillo Attending Unavailable Heri Camarillo Attending Unavailable PROVIDER, UNKNOWN Referring Unavailable Yolis Musa Primary Care Unavailable KARI RAYMUNDO Attending Unavailable PACO GELLER Attending Unavailable HERI CAMARILLO Admitting Unavailable HERI CAMARILLO Attending Unavailable RABIA, HERI Attending Unavailable Yolis Musa Primary Care Provider Unavai Sintia Gonzalez DO Unavailable Franc Zambrano MD Unavailable Heri Camarillo MD Unavailable [place] Primary Care Provider Unavailabl Dr. Rowdy Hernandez DO Attending Provider Dr. Rowdy Shearer DO Emergency Provider Dr. Greg Ruiz MD Emergency Provider Dr. Greg Ruiz MD Attending Provider KEISHA SAND BUFFER-C, JANUARY Attending Provider [phone] KEISHA SAND BUFFER-C, JANUARY Referring Provider [phone] Dr. Clayton Croft DO Emergency Provider [phone] [place] Primary Care Provider UnavailDr. Clayton Palmer DO Attending Provider [phone] Musat SAND BUFFER-C, Chikis Attending Provider Musat SAND BUFFER-C, Chikis Referring Provider [phone] MIREYA SOLIS Attending Provider [phone] [id number] MIREYA SOLIS Referring Provider [phone] [id number] MIREYA SOLIS Attending Provider [phone] [id number] MIREYA SOLIS Referring Provider [phone] [id number] Mary PETIT, Bart Santamaria Unavailable [facility] Primary Care Provider [phone] ALEC TINAJERO Attending UnavailALEC Ching Attending Unavailkoby e Dr. William Seals DO Emergency Provider LeeleeAdalgisa álvarezMicha Consulting Unavailable Koram, Apple Mojgan Attending Unavailable Kotsonis, Olman F Admitting [facility] Un[facility] Kotsonis, Olman F Consulting Unavailable Jopperi, William Consulting Unavailable Koram, Apple Mojgan Consulting Unavailable FRANNY, 1 Referring Unavailable FRANNY, 1 Attending [facility]available [facility] Unavailable Cuhcky Mckoy Miguel Consulting Unavailable Koram, Apple Mojgan Attending [facility] Unavailable Kotsonis, Olman F Admitting Unavailable Kotsonis, Olman F Consulting Unavailable Joppdonna William Consulting Unavailable FRANNY, 1 Attending Unavailable FRANNY, 1 Referring [facility]available [facility] Unavailable KEISHA, JANUARY Referring Unavailable January Attending Unavailable Musnii Chikis Referring Unavailable Musnii Chikis Attending [facility] Unavailable Clayton Croft Attending [facility] Unavailable FRANNY, 1 Referring Unavailable FRANNY, 1 Attending [facility] Unavailable Greg Ruiz Attending [facility] Unavailable Greg Ruiz Attending Unavailable William Seals Attending [facility] Unavailable Franki Medina Attending [facility] Unavailable Rowdy Shearer Attending Unavailable FRANNY, 1 Referring Unavailable FRANNY, 1 Attending [facility] Unavailable William Burciaga Attending Unavailable Georges Mcclellanolas F Attending Unavailable Allergies Allergy Classification Reported Allergen(s) Allergy Type Date of Onset Reaction(s) Facility (15 sources) Amoxicillin Drug Allergy 2 [facility] (15 sources) Clavulanate Drug Allergy 2 [facility] (18 sources) Lisinopril; Translations: [LISINOPRIL] Drug Allergy 2 Cough [facility] Work Phone: (7 sources) buPROPion Drug Allergy 2 [facility] Work Phone: (3 sources) Insulin Glargine; Translations: [INSULIN GLARGINE] Drug Allergy 2 Rash [facility] Work Phone: (7 sources) Amoxicillin-Pot Clavulanate Propensity to adverse reactions to drug 2 Headaches, Rash, Headache [facility] (6 sources) Insulin Glargine Drug Allergy 2 Rash [facility] (6 sources) Lisinopril Propensity to adverse reactions 2 Cough [facility] (1 source) Amoxicillin Drug Allergy 5 [facility] Repository (1 source) Clavulanate Drug Allergy 5 [facility] Repository (1 source) Lisinopril Drug Allergy 5 [facility] Repository Medications Current Medications Medication Drug Class(es) Dates Sig (Normalized) Sig (Original) [id number] 200 actuat albuterol 0.09 mg/actuat metered dose inhaler (1 source) beta2-Adrenergic Agonist Start: 10-07-2024 albuterol HFA (PROVENTIL HFA, VENTOLIN HFA) 90 mcg/actuation inhaler Inhale as instructed. 10/07/2024 Active amLODIPine 10 mg oral tablet (16 sources) Dihydropyridine Calcium Channel Clifford Start: 07-10-2024 take 1 tablet by mouth once daily Amlodipine 10 mg tablet Active 10 mg PO DAILY July 10, 2024 12:00am BP AMLODIPINE BESYL ATE PO Take by mouth. 0 Active aspirin 81 mg chewable tablet (11 sources) Platelet Aggregation Inhibitor, Nonsteroidal Anti-inflammatory Drug Start: 07-10-2024 take 1 tablet by mouth once daily Aspirin 81 mg tablet,chewable Active 81 mg PO DAILY July 10, 2024 12:00am blood thinner Start: 09-09-2017 take 1 tablet by micheal once daily aspirin, enteric coated (ASPIRIN, ENTERIC COATED) 81 mg EC tablet Take 81 mg by mouth once daily. 09/09/2017 Active take 1 tablet by micheal th once daily aspirin 81 MG chewable tablet Take 81 mg by mouth daily 0 Active atorvastatin 40 mg oral tablet (10 sources) HMG-CoA Reductase Inhibitor Start: 04-06-2024 take 1 tablet by mouth at bedtime Atorvastatin 40 mg tablet Active 40 mg PO AT BEDTIME July 10, 2024 12:00am cholesterol ciprofloxacin 500 mg oral tablet (16 sources) Quinolone Antimicrobial Start: 01-25-2025 take 1 tablet by mouth once daily Ciprofloxacin Hcl 500 mg tablet Active 500 mg PO DAILY 7 7 0 January 25, 2025 12:00am Start: 09-03-2024 End: 01-25-2025 take 1 tablet by mouth twice daily Ciprofloxacin Hcl (Cipro) 500 mg tablet Discontinued 500 mg PO TWICE A DAY 14 0 September 03, 2024 1:00am January 25, 2025 12:36pm ferrous gluconate 324 mg oral tablet (17 sources) Start: 01-25-2025 take 1 tablet by mouth at bedtime Ferrous Gluconate 324 mg (38 mg iron) tablet Active 324 mg PO AT BEDTIME January 25, 2025 12:00am Start: 07-10-2024 End: 09-03-2024 take 1 tablet by mouth once daily Ferrous Gluconate 324 mg (38 mg iron) tablet Discontinued 324 mg PO DAILY July 10, 2024 12:00am September 03, 2024 2:29pm supplement finasteride 5 mg oral tablet (11 sources) 5-alpha Reductase Inhibitor Start: 07-13-2024 take 1 tablet by mouth once daily Finasteride 5 mg Tablet Active 5 mg PO DAILY 30 1 July 13, 2024 12:00am take 1 tablet by mouth in the mo rning finasteride (PROSCAR) 5 MG tablet Take 5 mg by mouth in the morning. 0 Active glipiZIDE 10 mg oral tablet (17 sources) Sulfonylurea Start: 07-10-2024 take 1 tablet by mouth once daily Glipizide 10 mg tablet Active 10 mg PO DAILY July 10, 2024 12:00am diabetes Start: 07-10-2024 take 1 tablet by mouth [...] ml insulin glargine 100 unt/ml pen injector (9 sources) Insulin Analog Start: 2023 Insulin Glargine 100 unit/mL (3 mL) insulin pen Active 14 U SC AT BEDTIME July 10, 2024 12:00am diabetes Start: 07-10-2024 Insulin Glargi ne 100 unit/mL (3 mL) insulin pen Active 16 U SC EVERY EVENING July 10, 2024 12:00am losartan potassium 100 mg oral tablet (7 sources) Angiotensin 2 Receptor Clifford take 1 tablet by mouth in the [...] 0 Active pregabalin 75 mg oral capsule (10 sources) Start: 07-10-20 take 1 capsule by mouth twice daily Pregabalin (Lyrica) 75 mg capsule Active 75 mg PO TWICE A DAY July 10, 2024 12:00am pain SITagliptin 25 mg oral tablet (9 sources) Dipeptidyl Peptidase 4 Inhibitor Start: 07-10-20 24 take 1 tablet by mouth once daily Sitagliptin 25 mg tablet Active 25 mg PO DAILY July 10, 2024 12:00am diabetes 24 hr tolterodine tartrate 2 mg extended release oral capsule (2 sources) Cholinergic Muscarinic Antagonist Start: 11-07-19 End: 05-06-20 23 take 1 capsule by mouth once daily tolterodine LA (Detrol LA) 2 MG 24 hr capsule Indications: Urgency of urination Take 1 capsule (2 mg) by mouth daily. Do not crush, chew, or split. 30 capsule 5 11/07/2022 05/06/2023 Active trospium chloride 20 mg oral tablet (17 sources) Cholinergic Muscarinic Antagonist Start: 09-09-20 trospium (SANCTURA) 20 mg tablet Take 20 mg by mouth. 09/09/2024 Active Start: 11-04-2022 End: 11-07-2022 take 1 tablet [...] 30 tablet 1 10/25/2022 11/04/2022 Discontinued (Ineffective) Completed/Discontinued Medications Medication Drug Class(es) Dates Sig (Normalized) Sig (Original) cefdinir 300 mg oral capsule (9 sources) Cephalosporin Antibacterial Start: 07-13-2024 End: 01-25-2025 [...] medication) tamsulosin hydrochloride 0.4 mg oral capsule (11 sources) alpha-Adrenergic Clifford Start: 07-13-2024 End: 01-25-2025 take 1 capsule by mouth twice daily Tamsulosin 0.4 mg Capsule Discontinued 0.4 mg PO TWICE A DAY 60 2 July 13, 2024 12:00am January 25, 2025 12:38pm Problems Active Problems Problem Classification Problem Date Documented Da te Episodic/Chronic Acute bronchitis (1 source) Acute bronchitis, unspecified; [...] Chronic Complication of device; implant or graft (20 sources) Disorder of urethral catheter; Translations: [Breakdown (mechanical) of indwelling urethral catheter, initial encounter] Onset: 12-07-2024 01-14-2025 Episodic Diabetes mellitus without complication (18 sources) Diabetes mellitus; Translations: [Type 2 diabetes mellitus without complications] Onset: 06-09-2022 06-09-2022 Chronic Diseases of white blood cells (9 sources) Leukocytosis; Translations: [Elevated white blood cell count, unspecified] 07-21-2024 Chronic Essential hypertension (18 sources) Hypertensive disorder; Translations: [Essential (primary) hypertension] Onset: 06-09-2022 06-09-2022 Chronic Fluid and electrolyte disorders (9 sources) Lactic acidosis; Translations: [Acute lactic acidosis] 07-21-2024 Episodic Genitourinary symptoms and ill-defined conditions (20 sources) Increased frequency of urination; Translations: [Frequency of micturition] Onset: 06-10-2022 06-10-2022 Episodic Hyperplasia of prostate (20 sources) Benign prostatic hypertrophy with outflow obstruction; Translations: [Benign prostatic hyperplasia with lower urinary tract symptoms] Onset: 06-10-2022 06-10-2022 Chronic Malaise and fatigue (9 sources) Asthenia; Translations: [Weakness] 07-21-2024 Episodic Other aftercare (2 sources) terminal system operator (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; Translations: [terminal system operator (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] Onset: 08-15-2022 Episodic Other circulatory disease (2 sources) Personal history of other diseases of the circulatory system; Translations: [Personal history of other diseases of the circulatory system] Onset: 08-15-2022 Episodic Other diseases of kidney and ureters (2 sources) Acquired renal cystic disease; Translations: [Cyst of kidney, acquired] Onset: 03-15-2025 04-22-2025 Episodic Other diseases of kidney and ureters (1 source) Hydroureter; Translations: [Hydroureter] Onset: 03-15-2025 03-15-2025 Episodic Residual codes; unclassified (2 sources) Obstructive sleep apnea (adult) (pediatric); Translations: [Obstructive sleep apnea (adult) (pediatric)] Onset: 08-15-2022 Chronic Residual codes; unclassified (2 sources) Dependence on other enabling machines and devices; Translations: [Dependence on other enabling machines and devices] Onset: 08-15-2022 Chronic Residual codes; unclassified (9 sources) Urinary catheter in situ; Translations: [Presence of other specified devices] 09-11-2024 Episodic Substance-related disorders (2 sources) Nicotine dependence, unspecified, uncomplicated; Translations: [Nicotine dependence, unspecified, uncomplicated] Onset: 08-15-2022 Chronic Unclassified (1 source) Other pericardial effusion (noninflammatory); Translations: [Other pericardial effusion (noninflammatory)] Onset: 08-15-2022 Unclassified (2 sources) N40.1 // N13.8 Onset: 08-22-2022 Unclassified (7 sources) with your urologist Unclassified (6 sources) for local urology evaluation Past or Other Problems Problem Classification Problem Date Documented Date Episodic/Chronic Acute and unspecified renal failure (17 sources) Acute renal failure syndrome; Translations: [Acute kidney failure, unspecified] Onset: 01-31-2025 07-21-2024 Episodic Other diseases of kidney and ureters (10 sources) Unspecified hydronephrosis; Translations: [Hydronephrosis due to obstruction of bladder] Onset: 01-25-2025 09-11-2024 Episodic Other diseases of kidney and ureters [...] effusion (noninflammatory)] Onset: 08-15-2022 Urinary tract infections (20 sources) Urinary tract infectious disease; Translations: [Urinary tract infection, site not specified] Onset: 07-14-2024 07-21-2024 Episodic Results Test Name Value Interpretation Reference Range Facility Emergency Department Summary on 04-29-2025 Emergency Department Summary [facility] Medical Records Department [address] [place] [address] Emergency Department Summary 04/29/25 MR#: [id number] Acct: [id number] Name: LORI LYNCH Rep #: [id number] : 1945 79 From: William Seasl DO PCP: [facility] Hospital Status:[facility] Location: ED [facility] History of Present Illness Chief Complaint: Complaint Narrative Narrative: 79-year-old male was in our emergency department earlier today because his Diego catheter was leaking. It was routinely changed at [facility] yesterday. He has it for BPH. Earlier today the nurse irrigated it and readjusted it and it seemed to be draining properly but after he got home he stopped leaking around the penis again. [facility] Medical History BPH with obstruction/lower urinary tract [...] Time amoxicillin (From Augmentin) Allergy Hives Verified 04/29/25 13:04 clavulanic acid (From Allergy Hives Verified 04/29/25 13:04 Augmentin) lisinopril Allergy Other Verified 04/29/25 13:04 Family History Other Diabetes Surgical History H/O shoulder replacement Social History Smoking Status: Heavy Smoker (>10/day) ROS ROS ED ROS Narrative Constitutional: Negative for fever, chills, malaise. GI: Negative for abdominal pain. EXAM Physical Exam Narrative Exam Narrative: CONST: Patient sitting in no acute distress. EYES: Normal inspection. NECK: Normal inspection. RESP: No respiratory distress, CTAB. CVS: Regular rate and rhythm, no murmur, no gallop. ABD: Soft and nontender, no guarding or rebound, nondistended. SKIN: Color normal, no rash, warm, dry, intact. EXTREMITIES: Normal appearance, no pedal edema. NEURO: Alert and answering questions appropriately. PSYCH: Normal affect. Const Vital Signs: 04/29/25 13:03 04/29/25 14:20 04/29/25 15:43 Temperature 98.9 F 97.8 F 97.5 F L Temperature Source Oral Oral Pulse Rate 95 76 92 Respiratory Rate 18 15 16 Blood Pressure 145/74 H 135/67 H 164/75 H Blood Pressure Mean 97 89 104 Pulse Ox 99 95 98 Oxygen Delivery Method 04/29/25 15:45 04/29/25 16:39 Temperature 98.6 F Temperature Source Pulse Rate 78 80 Respiratory Rate 12 14 Blood Pressure 156/81 H 144/62 H Blood Pressure Mean 106 89 Pulse Ox 98 95 Oxygen Delivery Method Room Air Physical Exam Const Vital Signs: 04/29/25 13:03 04/29/25 14:20 04/29/25 15:43 Temperature 98.9 F 97.8 F 97.5 F L Temperature Source Oral Oral Pulse Rate 95 76 92 Respiratory Rate 18 15 16 Blood Pressure 145/74 H 135/67 H 164/75 H Blood Pressure Mean 97 89 104 Pulse Ox 99 95 98 Oxygen Delivery Method 04/29/25 15:45 04/29/25 16:39 Temperature 98.6 F Temperature Source Pulse Rate 78 80 Respiratory Rate 12 14 Blood Pressure 156/81 H 144/62 H Blood Pressure Mean 106 89 Pulse Ox 98 95 Oxygen Delivery Method Room Air [facility] Treatment and Re-Evaluation Narrative: I have personally performed a face to face assessment of the patient and have reviewed the GIA Note. I performed a substantive portion of the visit including all aspects of the following. My rankin findings include: History: Patient presents with leaking around his Diego catheter that occurred again today. Patient was seen here earlier and had his Diego catheter irrigated. Patient stat (more content not included)... Normal [facility] Emergency Department Summary [facility] Medical Records Department [address] [place] [address] Emergency Department Summary 04/29/25 MR#: [id number] Acct: [id number] Name: LORI LYNCH Rep #: [id number] : 1945 79 From: Chikis ROBERTSON PCP: [facility] Hospital Status:REG ER Location: ED HPI History of Present Illness Chief Complaint: Complaint Narrative Narrative: 79-year-old male has BPH and chronic indwelling Diego June 2024. He saw his urologist at the [facility] yesterday and had a routine catheter change. Since then urine has been leaking from around the tube and his penis is only partially draining in the bag. He has no pain. No hematuria or clots. [facility] Medical History BPH with obstruction/lower urinary tract [...] Time amoxicillin (From Augmentin) Allergy Hives Verified 04/29/25 13:04 clavulanic acid (From Allergy Hives Verified 04/29/25 13:04 Augmentin) lisinopril Allergy Other Verified 04/29/25 13:04 Family History Other Diabetes Surgical History H/O shoulder replacement Social History Smoking Status: Heavy Smoker (>10/day) ROS ROS ED ROS Narrative Constitutional: Negative for fever, chills, malaise. GI: Negative for abdominal pain, nausea, vomiting. : Negative for hematuria. EXAM Physical Exam Narrative Exam Narrative: CONST: Patient sitting in no acute distress. EYES: Normal inspection. NECK: Normal inspection. RESP: No respiratory distress, CTAB. CVS: Regular rate and rhythm, no murmur, no gallop. ABD: Soft and nontender, no guarding or rebound, nondistended. : Normal external genitalia. [address]. There is urine leakage in his briefs. Small amount of clear yellow urine in the leg bag. SKIN: Color normal, no rash, warm, dry, intact. EXTREMITIES: Normal appearance, no pedal edema. NEURO: Alert and answering questions appropriately. PSYCH: Normal affect. Const Vital Signs: 04/29/25 13:03 04/29/25 14:20 04/29/25 15:43 Temperature 98.9 F 97.8 F 97.5 F L Temperature Source Oral Oral Pulse Rate 95 76 92 Respiratory Rate 18 15 16 Blood Pressure 145/74 H 135/67 H 164/75 H Blood Pressure Mean 97 89 104 Pulse Ox 99 95 98 Physical Exam Const Vital Signs: 04/29/25 13:03 04/29/25 14:20 04/29/25 15:43 Temperature 98.9 F 97.8 F 97.5 F L Temperature Source Oral Oral Pulse Rate 95 76 92 Respiratory Rate 18 15 16 Blood Pressure 145/74 H 135/67 H 164/75 H Blood Pressure Mean 97 89 104 Pulse Ox 99 95 98 MDM MDM MDM Narrative Medical decision making narrative: 79-year-old male with a 20 [place] Diego catheter is leaking since it was changed yesterday at the urology office. It appear to be leaking from penis into his briefs. He has no pain. No abdominal tenderness or distention. The nurse checked that his wound was properly inflated. He irrigated the Diego and states there was 1 more clot that came out. After that and seems to be draining well and patient is comfortable going home. He will return if issues occur or follow-up with his urologist as needed. MDM Treatment and Re-Evaluation Narrative: I have personally performed a face to face assessment of the patient and have reviewed the GIA Note. I performed a substantive portion of the visit including all aspects of the following. My rankin findings include: Hist (more content not included)... Normal [facility] CNOVon 04-22-2025 CNOV Office Visit (AKURFL ) -------- LORI LYNCH ([id number]) 1945 M Date Time Provider Department 04/22/25 8:30 AM ALEC TINAJERO During your visit today, we recorded the following information about you: Alec Tinajero MD 04/22/2025 8:38 AM Signed ESTABLISHED PATIENT OFFICE VISIT Social Welfare Clerk present: Nina Sexton MA PATIENT INFO: Lori [...] pain Past Urology Hx: 03/15/2025 Pt CC: diego VOIDING SYMPTOMS: In June 2024 patient went into retention and the [facility] has been changing the catheter monthly since then He saw urology at the [facility] and they talked him about getting [place] at the [facility] [place] but he wants to come to [place] as it is closer to [place] where he lives Has had catheter change in [place] Had a aqua ablation in the past [...] him to get disc with films from [place] where he had them and see me back for cystoscopy and ultrasound of prostate and go from there October 18, 2022-seen by Dr. Camarillo/rishabh- 77 y.o. male who presents for telehealth visit regarding frequency after Aquablation. Aquablation 08/22/2022. Still on tamsulosin and finasteride. Feels that he empties his bladder adequately. However he has very severe urgency and frequency. No hematuria or dysuria Labs/Radiology/Procedure s: January 2025-MRI abdomen and pelvis outside institution-bilateral Bosniak 1-2 F renal cysts and severely enlarged prostate with tmeasurement of 8 cm by 7.3 cm February 10, 2025-CT/external-bilater al renal cysts scaling from 1-2 F and [...] he may be admitted post operatively. I (more content not included)... Normal [facility] PET/CT Tumor Base -Thigh Sub son 04-05-2025 PET/CT Tumor Base -Thigh Subs [facility] Imaging Services [address] [place] [address] PET/CT Tumor Base -Thigh Subs MR#: [id number] Acct: [id number] Name: LORI LYNCH Rep #: [id number] : 1945 M 79 From: Jemal Cueva PCP: [facility] Status: REG CLI Study: PET/CT Tumor Base -Thigh Subs Date of Exam: Exam# [id number] Ordering Dr: MIREYA SOLIS PROCEDURE: PET/CT TUMOR BASE -THIGH SUBS 04/05/2025 REASON FOR EXAM: 79 y/o M with LUNG CANCER TECHNIQUE: Following the intravenous administration of radionucleotide, image acquisition on a dedicated PET/CT unit was performed at one hour post injection. A preliminary CT study encompassing the Skull base, neck, chest, abdomen, pelvis, and proximal thighs was performed for purposes of attenuation correction and anatomic localization. The proximal thighs were also included. The patient's blood glucose level was 112 mg/dL (allowable range: 50-180 mg/dL). RADIOPHARMACEUTICAL: 12.46 mCi 18F-FDG (Fluorodeoxyglucose F18) IV was injected into he patient. RADIATION DOSE SUMMARY: Effective Dose: Approximately 7 mSv for a standard whole-body PET scan Organ Doses: Varies by organ, with higher doses typically to the bladder, liver, and brain COMPARISON: COMPARISON FROM CT, PET OR OTHER PERTINENT EXAMS: PET-CT 08/24/2024. FINDINGS: Physiologic uptake: There may be expected metabolic uptake within the brain, tongue and floor of the mouth and larynx/vocal cords, heart, milady (many normal individuals have hilar uptake in less than 3 nodes with mildly avid hilar nodes less than 2.7 SUV), liver and spleen, system, and GI tract and symmetric muscle uptake. FDG AVID AND NON-AVID LESIONS. Reported avid SUV values (g/mL*) are maximum SUV. NECK: There are no significant neck abnormalities. CHEST: Chest wall- There are no significant chest wall abnormalities. Axilla- There are no significant axillary abnormalities. Lung parenchyma- Centered on axial image 75 is seen a markedly increased, likely spiculated, lung nodule in the posteromedial left upper lobe, measured at approximately 11 mm in diameter, with hypermetabolic activity and SUV max of 3.5. This is highly concerning for malignancy. Areas of scarring in the right lung apex appear similar to the prior study, and show no hypermetabolic activity. Mediastinum- There are no significant hilar or mediastinal adenopathy. Pleura- There are no significant pleural abnormalities. ABDOMEN: Stomach- No significant abnormalities. Liver- No significant abnormalities. Spleen- No significant abnormalities. Pancrease- No significant abnormalities. Kidneys- No hypermetabolic activity is seen to suggest the presence of malignancy. Hyperdense bilateral renal cysts are again seen. Interval resolution of previous presumed anterior right renal abscess. Bilateral hydroureteronephrosis is again seen, somewhat more prominent on the right than on the prior exam of 08/24/2024. Perinephric stranding is again noted. Stable appearance areas of left renal calcification, likely post infarction. Bowel- Normal bowel activity. Spine- No significant abnormalities. PELVIS: Moderate sigmoid colon and descending colon diverticulosis is noted. Bowel- Normal physiologic bowel activity is identified. Masses- There are no pelvic masses. A Diego catheter is in place. Bones- With the use of bone window settings, there are no osteolytic or osteoblastic lesions. There are no FDG avid lesions within the visualized portion of the axial skeleton. PET/PET/CT Tumor Base -Thigh Subs IMPRESSION: FDG avid- Increased left upper lobe nodule, with hypermetabolic activity, highly concerning for the presence of malignancy. Other: Moderate sigmoid and descending colon diverticulosis. Additional findings as noted. Please note the low-dose CT scan was performed to facilitate PET image reconstruction and anatomic localization and does not replace a diagnostic CT. Any diagnostic CT requested and performed at the time of the PET will be reported separately. Reading Location: [address] CC: MIREYA SOLIS; [facility] Special Librarian: Signed Normal [facility] Positron emission tomography scan reportOrdered By: Jemal Green on 04-05-2025 PT Unspecified body region [facility] Imaging Services [address] [place] [address] PET/CT Tumor Base -Thigh Subs MR#: [id number] Acct: [id number] Name: LORI LYNCH Rep #: [id number] : 1945 M 79 From: [place] Green MD PCP: [facility] Status: REG CLI Study:PET/CT Tumor Base -Thigh Subs Date of E xam: 04/05/25 Exam# [id number] Ordering Dr: MIREYA LAWSON PROCEDURE: PET/CT TUMOR BASE -THIGH SUBS 04/05/2025 REASON FOR EXAM: 79 y/o M with LUNG CANCER TECHNIQUE: Following the intravenous administration of radionucleotide, image acquisition on a dedicated PET/CT unit was performed at one hour post injection. A preliminary CT study encompassing the Skull base, neck, chest, abdomen, pelvis, and proximal thighs was performed for purposes of attenuation correction and anatomic localization. The proximal thighs were also included. The patient's blood glucose level was 112 mg/dL (allowable range: 50-180 mg/dL). RADIOPHARMACEUTICAL: 12.46 mCi 18F-FDG (Fluorodeoxyglucose F18) IV was injected into he patient. RADIATION DOSE SUMMARY: Effective Dose: Approximately 7 mSv for a standard whole-body PET scan Organ Doses: Varies by organ, with higher doses typically to the bladder, liver,and brain COMPARISON: COMPARISON FROM CT, PET OR OTHER PERTINENT EXAMS: PET-CT 08/24/2024. FINDINGS: Physiologic uptake: There may be expected metabolic uptake within the brain, tongue and floor of the mouth and larynx/vocal cords, heart, milady (many normal individuals have hilar uptake in less than 3 nodes with mildly avid hilar nodes less than 2.7 SUV), liver and spleen, system, and GI tract and symmetric muscle uptake. FDG AVID AND NON-AVID LESIONS. Reported avid SUV values (g/mL*) are maximum SUV. NECK: There are no significant neck abnormalities. CHEST: Chest wall- There are no significant chest wall abnormalities. Axilla- There are no significant axillary abnormalities. Lung parenchyma- Centered on axial image 75 is seen a markedly increased, likely spiculated, lungnodule in the posteromedial left upper lobe, measured at approximately 11 mm in diameter, with hypermetabolic activity and SUV max of 3.5. This is highly concerning for malignancy. Areas of scarring in the right lung apex appear similar to the prior study, and show no hypermetabolic activity. Mediastinum- There are no significant hilar or mediastinal adenopathy. Pleura- There are no significant pleural abnormalities. ABDOMEN: Stomach- No significant abnormalities. Liver- No significant abnormalities. Spleen- No significant abnormalities. Pancrease- No significant abnormalities. Kidneys- No hypermetabolic activity is seen to suggest the presence of malignancy. Hyperdense bilateral renal cysts are again seen. Interval resolution of previous presumed anterior right renal abscess. Bilateral hydroureteronephrosis is again seen, somewhat more prominent on the right than on the prior exam of 08/24/2024. Perinephric stranding is again noted. Stable appearance areas of left renal calcification, likely post infarction. Bowel- Normal bowel activity. Spine- No significant abnormalities. PELVIS: Moderate sigmoid colon and descending colon diverticulosis is noted. Bowel- Normal physiologic bowel activity is identified. Masses- There are no pelvic masses. A Diego catheter is in place. Bones- With the use of bone window settings, there are no osteolytic or osteoblastic lesions. There are no FDG avid lesions within the visualized portion of the axial skeleton. PET/PET/CT Tumor Base -Thigh Subs IMPRESSION: FDG avid- Increased left upper lobe nodule, with hypermetabolic activity, highly concerning for the presence of malignancy. Other: Moderate sigmoid and descending colon diverticulosis. Additional findings as noted. Please note the low-dose CT scan was performed to facilitate PET image reconstruction and anatomic localization and does not replace a diagnostic CT. Any diagnostic CT requested and performed at the time of the PET will be reported separately. Reading Location: [address] CC: MIREYA SOLIS; [facility] ~ Special Librarian: Signed [facility] Chest PA and Lateralon 03-24 Chest PA and Lateral [facility] Imaging Services [address] [place] [address] Chest PA and Lateral MR#: [id number] Acct: [id number] Name: LORI LYNCH Rep #: [id number] : 1945 M 79 From: Zarina Edouard nd, MD PCP: [facility] Status: REG CLI Study: Chest PA and Lateral Date of Exam: 03/24/25 Exam# [id number] Ordering Dr: Chikis Hernandez SAND BUFFER-C PROCEDURE: CHEST PA AND LATERAL 03/24/2025 REASON [...] not well-visualized by radiographic imaging. 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 No hematuria or dysuria Labs/Radiology/Procedure s: February 10, 2025-CT/external-bilater al renal cysts scaling from 1-2 F and [...] discussed with the Patient or Patient's Authorized Houseman. As applicable, any other physician, advance practice provider, medical student, or other health professional student that will be observing or involved in the sensitive examination for educational or training purposes was discussed with the Patient or Authorized Houseman. The Patient or Authorized Houseman has agreed to proceed with the sensitive examination. (Sensitive examination includes inspection and/or palpation of the breasts, pelvis, prostate and anorectal regions) Risk/Benefit Discussion: Cystoscopy I explained the options concerning cystoscopy I did tell the patient about various alternatives and why cystoscopy was indicated in this particular circumstance. I advised the patient about the possi (more content not included)... Normal [facility] Emergency Department Summary on 03-02-2025 Emergency Department Summary [facility] Medical Records Department [address] [place] [address] Emergency Department Summary 03/02/25 MR#: [id number] Acct: [id number] Name: LORI LYNCH Rep #: [id number] : 1945 79 From: Clayton Croft DO PCP: [place] [facility] Status:DEP ER Location: ED HPI History of Present Illness Chief Complaint: Diego C/O Informant: patient Narrative Narrative: 79-year-old male presenting to the emergency room with leakage of urine around Diego catheter. Patient has had a indwelling Diego catheter since last fall. He states that [facility] He states that they did not have the same size that he had them before but he is unsure what size was in there before. He notes currently has a 20 [place]. He notes a history of BPH he takes finasteride. He states that this is not the first time he is come to emergency because of a leaking Diego catheter. He notes no change in the urine. No fevers no chills. He states that last time it was leaking because the balloon was in my prostate. [facility] Medical History BPH with obstruction/lower urinary tract [...] findings. There (more content not included)... Normal [facility] CBC W/Diff, Automatedon 01-26 PATH REV Reviewed Normal [facility] Comment on above: Result Comment: SEE REPORT IN PATIENT'S EMR AMENDED REPORT 02/14/25 1606 PATH REV previously reported as: February Performed By: #### L 100.0100, L503.6005, L500.2500 ####[facility] [address] [place], [address] Culture, Blood (WB)on 2024 CUB Blood cultures x2, f rom two different sites No growth in 5 days. Normal [facility] Comment on above: Performed By: #### M 200.1000 ####[facility] [address] [place], [address] Urine Cultureon 01-27-2025 [facility] Hafnia alvei [place] Count 80,000-100,000 Hafnia alvei: REACTION Ampicillin Islt SEGUNDO Ampicillin+Sulbac Islt SEGUNDO >=32 R cefTRIAXone Islt SEGUNDO 1 S Ciprofloxacin Islt SEGUNDO <=0.06 S Gentamicin Islt SEGUNDO <=1 S levoFLOXacin Islt SEGUNDO <=0.12 S Meropenem Islt SEGUNDO <=0.25 S Nitrofurantoin Islt SEGUNDO <=16 S Pip+Tazo Islt SEGUNDO 16 I TMP SMX Islt SEGUNDO <=20 S Normal [facility] Comment on above: Performed By: #### M 100.2200 ####[facility] [address] [place], [address] Abdomen/Pelvis without Conto n 01-25-2025 Abdomen/Pelvis without Cont [facility] Imaging Services [address] [place] [address] Abdomen/Pelvis without Cont MR#: [id number] Acct: [id number] Name: LORI LYNCH Rep #: [id number] : 1945 M 79 From: Ramses gasca MD PCP: [place] [facility] Status: REG ER Study: Abdomen/Pelvis without Cont Date of Exam: 11/20 Exam# [id number] Ordering Dr: Greg Ruiz MD PROCEDURE: ABDOMEN/PELVIS [...] seen within the prostatic urethra. Reading Location: [facility] CC: Dr. Greg Ruiz MD; [facility] Special Librarian: Signed Normal [facility] Absolute lymphocyte countOrd ered By: Greg Ruiz on 01-25-2025 Lymphocytes Auto (Unsp spec) [#/Vol] 1.67 10*3/uL 0.83-4.51 [facility] Absolute neutrophil countOrd ered By: Greg Ruiz on 01-25-2025 Neutrophils (Bld) [#/Vol] 13.0 10*3/uL High 2.0-7.7 [facility] Anion gap in Serum or Plasma Ordered By: Greg Ruiz on 01-25-2025 Anion gap [Moles/Vol] 14 mmol/L 5-15 [facility] Automated lymphocyte count a s percentage of total leukocytesOrdered By: Greg Ruiz on 01-25-2025 Lymphocytes/100 WBC Auto (Unsp spec) 9.4 % Low 19-41 [facility] BUN/creatinine ratioOrdered By: Greg Ruiz on 01-25-2025 Urea nitrogen/Creatinine [Mass ratio] 14.9 mg/mg 10- [facility] Basic Metabolic Profile (BMP )on 01-25-2025 BUN/CRE 14.9 RATIO Normal - [facility] Comment on above: Performed By: #### L 100.0100, L503.6005, L500.2500 ####[facility] [address] [place], [address] Calcium [Mass/Vol] 8.5 mg/dL Normal 7.6-11.0 [facility] Comment on above: Performed By: #### L 100.0100, L503.6005, L500.2500 ####[facility] [address] [place], [address] Chloride [Moles/Vol] 106 mmol/L Normal 98-108 [facility] Comment on above: Performed By: #### L 100.0100, L503.6005, L500.2500 ####[facility] [address] [place], [address] CO2 [Moles/Vol] 17.5 mmol/L Low 21.0-32.0 [facility] Comment on above: Performed By: #### L 100.0100, L503.6005, L500.2500 ####[facility] [address] [place], [address] Creatinine [Mass/Vol] 3.33 mg/dL High 0.70-1.20 [facility] Comment on above: Performed By: #### L 100.0100, L503.6005, L500.2500 ####[facility] [address] [place], [address] ECRCL 20.35 ml/min Low 50-250 [facility] Comment on above: Performed By: #### L 100.0100, L503.6005, L500.2500 ####[facility] [address] [place], [address] GAP 14 Normal 5-15 [facility] Comment on above: Performed By: #### L 100.0100, L503.6005, L500.2500 ####[facility] [address] [place], [address] GFR/1.73 sq M.predicted among non-blacks MDRD (S/P/Bld) [Vol rate/Area] 18 mL/min/{1.73_m2} Low >60 [facility] Comment on above: Result Comment: mL/m in/1.73m2 CKD-EPI Creatinine Equation (2020) Performed By: #### L 100.0100, L503.6005, L500.2500 ####[facility] [address] [place], [address] Glucose [Mass/Vol] 247 mg/dL High 70-99 [facility] Comment on above: Performed By: #### L 100.0100, L503.6005, L500.2500 ####[facility] [address] [place], [address] Potassium [Moles/Vol] 4.4 mmol/L Normal 3.3-5.1 [facility] Comment on above: Performed By: #### L 100.0100, L503.6005, L500.2500 ####[facility] [address] [place], [address] Sodium [Moles/Vol] 137 mmol/L Normal 133-145 [facility] Comment on above: Performed By: #### L 100.0100, L503.6005, L500.2500 ####[facility] [address] [place], [address] Urea nitrogen [Mass/Vol] 50 mg/dL High 4-19 [facility] Comment on above: Performed By: #### L 100.0100, L503.6005, L500.2500 ####[facility] [address] [place], [address] Basophil percentageOrdered B y: Greg Ruiz on 01-25-2025 Basophils/100 WBC (Bld) 0.4 % 0-1 [facility] Bilirubin Test strip Ql (U)O rdered By: Greg Ruiz on 01-25-2025 Bilirubin Ql (U) Negative Negative [facility] Blood cultureOrdered By: Maya Ruiz on 01-25-2025 Bacteria identified Cx Nom (Bld) No growth in 5 days. [facility] Bacteria identified Cx Nom (Bld) No growth in 5 days. [facility] Blood manual differential co mment interpretation (narrative result)Ordered By: Greg Ruiz on 01-25-2025 Manual differential comment Ed (Bld) [Interp] SCANNED [facility] Comment on above: MONOCYTOSIS NOTED Carbon dioxide, total [Moles /volume] in Central venous bloodOrdered By: Greg Ruiz on 01-25-2025 CO2 [Moles/Vol] 17.5 mmol/L Low 21.0-32.0 [facility] Chloride assayOrdered By: Aydee Ruiz on 01-25-2025 Chloride [Moles/Vol] 106 mmol/L 98-108 [facility] Emergency Department Summary on 01-25-2025 Emergency Department Summary [facility] Medical Records Department [address] [place] [address] Emergency Department Summary 01/25/25 MR#: [id number] Acct: [id number] Name: LORI LYNCH Rep #: [id number] : 1945 79 From: Greg Ruiz MD PCP: [facility] Status:REG ER Location: ED HPI History [...] is concerned he may have a UTI. [facility] Medical History BPH with obstruction/lower urinary tract [...] yellow nonbl (more content not included)... Normal [facility] Eosinophil percentageOrdered By: Greg Ruiz on 01-25-2025 Eosinophils/100 WBC (Bld) 1.0 % 0-5 [facility] Epithelial cells.squamous LM Ql (Urine sed)Ordered By: Greg Ruiz on 01-25-2025 Epithelial cells.squamous LM.HPF (Urine sed) [#/Area] 0 /[HPF] 0-5 [facility] Erythrocyte distribution wid th ratioOrdered By: Greg Ruiz on 01-25-2025 Erythrocyte distribution width (RBC) [Ratio] 19.1 % High 11.6-14.6 [facility] Erythrocyte distribution wid th standard deviationOrdered By: Greg Ruiz on 01-25-2025 Erythrocyte distribution width (RBC) [Entitic vol] 51.0 fL High 35.1-43.9 [facility] Erythrocyte distribution width (RBC) [Ratio] 51.0 fl High 35.1-43.9 [facility] Estimation of creatinine alexis aranceOrdered By: Greg Ruiz on 01-25-2025 Estimated Creatinine Clearance Calc 20.35 ml/min Low 50-250 [facility] GFR/1.73 sq M.predicted pranav g non-blacks MDRD (S/P/Bld) [Vol rate/Area]Ordered By: Greg Ruiz on 01-25-2025 Estimated GFR (MDRD) Non-Af Amer 18 Low >60 [facility] Comment on above: mL/min/1.73m2 CKD-EP I Creatinine Equation (2020) Glomerular filtration rate ( GFR) estimation/1.73 sq m using serum, plasma, or whole bOrdered By: Greg Ruiz on 01-25-2025 GFR/1.73 sq M.predicted among non-blacks MDRD (S/P/Bld) [Vol rate/Area] 18 mL/min/{1.73_m2} Low >60 [facility] Comment on above: mL/min/1.73m2 CKD-EP I Creatinine Equation (2020) Glucose Ql (U)Ordered By: Aydee Ruiz on 01-25-2025 Glucose (U) [Mass/Vol] 100 mg/dL High Normal [facility] Hematocrit Auto (Bld) [Volum e fraction]Ordered By: Greg Ruiz on 01-25-2025 Hematocrit (Bld) [Volume fraction] 34.0 % Low 40-54 [facility] Hemoglobin measurementOrdere d By: Greg Ruiz on 01-25-2025 Hemoglobin (Bld) [Mass/Vol] 10.9 g/dL Low 13.0-16.5 [facility] Immature granulocytes/100 WB C Auto (Bld)Ordered By: Greg Ruiz on 01-25-2025 Immature granulocytes/100 WBC (Bld) 0.800 % 0.0-0.9 [facility] Comment on above: IG% - Immature Granu locytes (promyelocytes, myelocytes and metamyelocytes) > 1% indicates that a LEFT SHIFT is Present. Ketones Test strip Ql (U)Ord ered By: Greg Ruiz on 01-25-2025 Ketones Ql (U) Negative Negative [facility] Lactic Acidon 01-25-2025 Lactate [Moles/Vol] 1.4 mmol/L Normal 0.0-2.0 [facility] Comment on above: Order Comment: Y Performed By: #### L 100.0100, L503.6005, L500.2500 ####[facility] [address] [place], [place], [id number] Lactic acid measurementOrder ed By: Greg Ruiz on 01-25-2025 Lactate [Moles/Vol] 1.4 mmol/L 0.0-2.0 [facility] Lymphocytes Auto (Unsp spec) [#/Vol]Ordered By: Greg Ruiz on 01-25-2025 Lymphocytes (Bld) [#/Vol] 1.67 10*3/uL 0.83-4.51 [facility] Lymphocytes/100 WBC Auto (Un sp spec)Ordered By: Greg Ruiz on 01-25-2025 Lymphocytes/100 WBC (Bld) 9.4 % Low 19-41 [facility] MCV (mean corpuscular volume ) determinationOrdered By: Greg Ruiz on 01-25-2025 MCV (RBC) [Entitic vol] 74.9 fL Low 80-94 [facility] Manual differential comment Ed (Bld) [Interp]Ordered By: Greg Ruiz on 01-25-2025 Differential Comment SCANNED [facility] Comment on above: MONOCYTOSIS NOTED Mean corpuscular hemoglobin (MCH) determinationOrdered By: Greg Ruiz on 01-25-2025 MCH (RBC) [Entitic mass] 24.0 pg Low 27.0-32.0 [facility] Mean corpuscular hemoglobin concentration (MCHC) determinationOrdered By: Greg Ruiz on 01-25-2025 MCHC (RBC) [Mass/Vol] 32.1 g/dL 32-36 [facility] Mean platelet volume determi nationOrdered By: Greg Ruiz on 01-25-2025 Platelet mean volume (Bld) [Entitic vol] 10.8 fL 6.2-12.0 [facility] Microscopic analysis of urin e for red blood cells (RBC)Ordered By: Greg Ruiz on 01-25-2025 Microscopic analysis of urine for red blood cells (RBC) 25-50 SEEN /hpf 0-5 [facility] Urine RBC 25-50 SEEN /hpf 0-5 [facility] Monocyte percentageOrdered B y: Greg Ruiz on 01-25-2025 Monocytes/100 WBC (Bld) 15.4 % High 0-10 [facility] Mucus LM Ql (Urine sed)Order ed By: Greg Ruiz on 01-25-2025 Mucus Ql (Urine sed) 0 SEEN /hpf [facility] Neutrophil percentageOrdered By: Greg Ruiz on 01-25-2025 Neutrophils/100 WBC (Bld) 73.0 % High 47-70 [facility] Nitrite Test strip Ql (U)Ord ered By: Greg Ruiz on 01-25-2025 Nitrite Ql (U) Negative Negative [facility] Nucleated red blood cell per centageOrdered By: Greg Ruiz on 01-25-2025 Nucleated RBC/100 WBC (Bld) [Ratio] 0 % 0-5 [facility] Pathologist review Ed (Unsp spec) [Interp]Ordered By: Greg Ruiz on 01-25-2025 Differential Pathologist's Review Lois [facility] Platelet countOrdered By: Aydee Ruiz on 01-25-2025 Platelets (Bld) [#/Vol] 228 10*3/uL 150-450 [facility] Potassium (Unsp spec) [Mass/ Vol]Ordered By: Greg Ruiz on 01-25-2025 Potassium [Moles/Vol] 4.4 mmol/L 3.3-5.1 [facility] Potassium measurement (mass/ volume)Ordered By: Greg Ruiz on 01-25-2025 Potassium (Unsp spec) [Mass/Vol] 4.4 mmol/L 3.3-5.1 [facility] Protein Test strip Ql (U)Ord ered By: Greg Ruiz on 01-25-2025 Protein Ql (U) 100 mg/dl High Negative [facility] RBC Auto (Bld) [#/Vol]Ordere d By: Greg Ruiz on 01-25-2025 RBC (Bld) [#/Vol] 4.54 10*6/uL Low 4.6-6.2 [facility] Review by pathologistOrdered By: Greg Ruiz on 01-25-2025 Pathologist review Ed (Unsp spec) [Interp] Reviewed [facility] Comment on above: Previous reported re sult: [...] 1606 PATH REV previously reported as: February Serum creatinine measurement (mass/volume)Ordered By: Greg Ruiz on 01-25-2025 Creatinine [Mass/Vol] 3.33 mg/dL High 0.70-1.20 [facility] Serum glucose measurement (m ass/volume)Ordered By: Greg Ruiz on 01-25-2025 Glucose [Mass/Vol] 247 mg/dL High 70-99 [facility] Serum or plasma calcium angle urement (mass/volume)Ordered By: Greg Ruiz on 01-25-2025 Calcium [Mass/Vol] 8.5 mg/dL 7.6-11.0 [facility] Serum or plasma urea nitroge n measurement (mass/volume)Ordered By: Greg Ruiz on 01-25-2025 Urea nitrogen [Mass/Vol] 50 mg/dL High 4-19 [facility] Sodium levelOrdered By: Km Ruiz on 01-25-2025 Sodium [Moles/Vol] 137 mmol/L 133-145 [facility] Squamous epithelial cells de tection in urine sediment by light microscopyOrdered By: Greg Ruiz on 01-25-2025 Epithelial cells.squamous LM Ql (Urine sed) 0-5 SEEN /hpf 0-5 [facility] Urinalysis, Completeon 01-25 EPI,SQUAMOUS 0-5 SEEN Normal 0-5 [facility] Comment on above: Order Comment: HUI TER SPECIMEN Performed By: #### L 400.0001 #### [facility] [address] [place], [address] BACTERIA 1+ /hpf Normal None Seen [facility] Comment on above: Order Comment: HUI TER SPECIMEN Performed By: #### L 400.0001 #### [facility] [address] [place], [address] RBC 25-50 SEEN Normal 0-5 [facility] Comment on above: Order Comment: HUI TER SPECIMEN Performed By: #### L 400.0001 #### [facility] [address] [place], [address] WBC >100 SEEN Normal 0-5 [facility] Comment on above: Order Comment: HUI TER SPECIMEN Performed By: #### L 400.0001 #### [facility] [address] [place], [address] Mucus Ql (Urine sed) 0 SEEN Normal [facility] Comment on above: Order Comment: HUI TER SPECIMEN Performed By: #### L 400.0001 #### [facility] [address] [place], [place], [id number] Urine blood detectionOrdered By: Greg Ruiz on 01-25-2025 Urine Occult Blood 250 /ul High Negative [facility] Urine clarityOrdered By: Maya Ruiz on 01-25-2025 Clarity (U) Turbid Clear [facility] Urine color determinationOrd ered By: Greg Ruiz on 01-25-2025 Color (U) Straw Yellow [facility] Urine cultureOrdered By: Maya Ruiz on 01-25-2025 Bacteria identified Cx Nom (U) Hafnia alvei Abnormal [facility] Urine glucose detectionOrder ed By: Greg Ruiz on 01-25-2025 Glucose Ql (U) 100 mg/dl High Normal [facility] Urine leukocyte esterase det ection by dipstickOrdered By: Greg Ruiz on 01-25-2025 Leukocyte esterase Test strip Ql (U) 500 /ul High Negative [facility] Urine pHOrdered By: Greg Ruiz on 01-25-2025 pH (U) 6.0 [pH] 5.0 - 8.0 [facility] Urine sediment bacteria coun t by microscopy (number/high power field)Ordered By: Greg Ruiz on 01-25-2025 Bacteria LM.HPF (Urine sed) [#/Area] 1 /[HPF] None Seen [facility] Urine specific gravity measu rementOrdered By: Greg Ruiz on 01-25-2025 Specific gravity (U) [Rel density] 1.010 1.002-1.030 [facility] Urine urobilinogen measureme ntOrdered By: Greg Ruiz on 01-25-2025 Urobilinogen Ql (U) Normal mg/dl Normal [facility] Urobilinogen Ql (U)Ordered B y: Greg Ruiz on 01-25-2025 Urine Urobilinogen Normal mg/dl Normal [facility] White blood cell (WBC) count Ordered By: Greg Ruiz on 01-25-2025 WBC (Bld) [#/Vol] 17.8 10*3/uL High 4.4-11.0 [facility] White blood cell countOrdere d By: Greg Ruiz on 01-25-2025 Urine WBC >100 SEEN /hpf 0-5 [facility] White blood cell count >100 SEEN /hpf 0-5 [facility] Renal Scan w/ Pharm Interven ton 01-21-2025 Renal Scan w/ Pharm Intervent [facility] Imaging Services [address] [place] [address] Renal Scan w/ Pharm Intervent MR#: [id number] Acct: [id number] Name: LORI LYNCH Rep #: [id number] : 1945 M 79 From: Ramses gasca MD PCP: [facility] Status: REG CLI Study: Renal Scan w/ Pharm Intervent Date of Exam: Exam# [id number] Ordering Dr: KEISHAJANUARY SAND BUFFER-C PROCEDURE: RENAL SCAN W/ PHARM INTERVENT 01/21/2025 [...] with the injection of Lasix. Reading Location: [facility] CC: JANUARY MASON VALDES; [facility] Special Librarian: Signed Normal [facility] Emergency Department Summary on 01-14-2025 Emergency Department Summary [facility] Medical Records Department [address] [place] [address] Emergency Department Summary 01/14/25 MR#: [id number] Acct: [id number] Name: LORI LYNCH Rep #: [id number] : 1945 79 From: rGeg Ruiz MD PCP: [facility] Status:REG ER Location: ED HPI History [...] thinks that is why it is leaking. [facility] Medical History BPH with obstruction/lower urinary tract [...] mg t (more content not included)... Normal [facility] Emergency Department Summary on 11-13-2024 Emergency Department Summary [facility] Medical Records Department [address] [place] [address] Emergency Department Summary 11/13/24 MR#: [id number] Acct: [id number] Name: LORI LYNCH Rep #: [id number] : 1945 79 From: Rowdy Shearer DO PCP: [place] [facility] Status:[facility] ER Location: ED HPI History of Present Illness Chief Complaint: Diego C/O Informant: patient Narrative Narrative: Patient is a 79-year-old male with past medical history of hypertension hyperlipidemia diabetes and BPH which is led to urinary retention and need for a chronic indwelling Idego catheter. Patient states that earlier today the catheter was accidentally tugged on and he believes it dislodged slightly as he is now leaking urine around the catheter insertion site. He denies any bleeding fever or pain but with concern he needs a catheter replaced he presents for evaluation [facility] Medical History BPH with obstruction/lower urinary tract [...] Exam: Negat (more content not included)... Normal [facility] CBC W/Diff, Automatedon 08-27 PATH REV Reviewed Normal [facility] Comment on above: Result Comment: Leuk ocytosis. Microcytic anemia. Clinical correlation necessary. Trent Corea M.D. 09/06/24 AMENDED REPORT 09/06/24 1421 PATH REV previously reported as: February Performed By: #### L 503.6005 #### [facility] Laboratory [address] [place], [place], [address] Culture, Blood (WB)on 2023 CUB Blood cultures x2, f rom two different sites No growth in 5 days. Normal [facility] Comment on above: Performed By: #### M 200.1000 ####[facility] [address] [place], [place], [id number] Urine Cultureon 09-05-2024 URC Escherichia coli [place] Count >100,000 Escherichia coli: REACTION Ampicillin Islt [...] TMP SMX Islt SEGUNDO <=20 S Normal [facility] Comment on above: Performed By: #### M 1002208 ####[facility] [address] [facility] [place], [place], [address] URC Escherichia coli [place] Count >100,000 Escherichia coli: REACTION Ampicillin Islt [...] TMP SMX Islt SEGUNDO <=20 S Normal [facility] Comment on above: Performed By: #### L 503.2588 #### [facility] Laboratory [address] [place], [address] Comprehensive Metabolic Prof ilon 09-03-2024 Albumin [Mass/Vol] 2.8 g/dL Low 3.2-5.0 [facility] Comment on above: Performed By: #### L 503.6005 #### [facility] Laboratory [address] [place], [address] Albumin/Globulin [Mass ratio] 0.7 {ratio} Low 0.9-2.4 [facility] Comment on above: Performed By: #### L 503.6005 #### [facility] [address] [place], [address] ALK P 109 U/L Normal 45-117 [facility] Comment on above: Performed By: #### L 503.6005 #### [facility] [address] [place], [address] ALT [Catalytic activity/Vol] 10 U/L Low 16-61 [facility] Comment on above: Performed By: #### L 503.6005 #### [facility] [address] [place], [address] AST [Catalytic activity/Vol] 16 U/L Normal 15-37 [facility] Comment on above: Performed By: #### L 503.6005 #### [facility] [address] [place], [address] Bilirubin [Mass/Vol] 0.30 mg/dL Normal 0.20-1.00 [facility] Comment on above: Result Comment: For patients on eltrombopag therapy, use of Dimension [place] TBIL is not recommended. Performed By: #### L 503.6005 #### [facility] [address] [place], [address] BUN/CRE 17.1 RATIO Normal 10-20 [facility] Comment on above: Performed By: #### L 503.6005 #### [facility] [address] [place], [address] CA,Total 8.6 mg/dL Normal 8.5-10.1 [facility] Comment on above: Performed By: #### L 503.6005 #### [facility] [address] [place], [address] Chloride [Moles/Vol] 112 mmol/L High 98-107 [facility] Comment on above: Performed By: #### L 503.6005 #### [facility] [address] [place], [address] CO2 [Moles/Vol] 23.0 mmol/L Normal 21.0-32.0 [facility] Comment on above: Performed By: #### L 503.6005 #### [facility] Laboratory [address] [place], [address] Creatinine [Mass/Vol] 1.87 mg/dL High 0.70-1.30 [facility] Comment on above: Result Comment: The validity of the calculated GFR GFRAA in patients over 70 years has not been determined. Clinical correlation is essential. Performed By: #### L 503.6005 #### [facility] [address] [place], [address] ECRCL 36.61 ml/min Normal [facility] Comment on above: Performed By: #### L 503.6005 #### [facility] Laboratory [address] [place], [address] EST GFR - AA 45 mL/min Low >60 [facility] Comment on above: Result Comment: Afri can Thai GFR Calc Performed By: #### L 503.6005 #### [facility] [address] [place], [address] GAP 6 Normal 5-15 [facility] Comment on above: Performed By: #### L 503.6005 #### [facility] [address] [place], [address] GFR/1.73 sq M.predicted among non-blacks MDRD (S/P/Bld) [Vol rate/Area] 37 mL/min/{1.73_m2} Low >60 [facility] Comment on above: Result Comment: Non- GFR Calc Performed By: #### L 503.6005 #### [facility] [address] [place], [address] Globulin (S) [Mass/Vol] 4.1 g/dL Normal 2.2-4.2 [facility] Comment on above: Performed By: #### L 503.6005 #### [facility] [address] [place], [address] Glucose [Mass/Vol] 241 mg/dL High 74-106 [facility] Comment on above: Result Comment: Gluc ose result greater than or equal to 200 mg/dL suggests DIABETES MELLITUS per A.D.A. criteria. Performed By: #### L 503.6005 #### [facility] [address] [place], [address] Potassium [Moles/Vol] 4.1 mmol/L Normal 3.5-5.1 [facility] Comment on above: Performed By: #### L 503.6005 #### [facility] [address] [place], [address] Sodium [Moles/Vol] 141 mmol/L Normal 136-145 [facility] Comment on above: Performed By: #### L 503.6005 #### [facility] [address] [place], [address] T PROT 6.9 g/dL Normal 6.4-8.2 [facility] Comment on above: Performed By: #### L 503.6005 #### [facility] [address] [place], [address] Urea nitrogen [Mass/Vol] 32 mg/dL High 7-18 [facility] Comment on above: Performed By: #### L 503.6005 #### [facility] Laboratory [address] [place], [place], [address] Emergency Department Summary on 09-03-2024 Emergency Department Summary [facility] Medical Records Department [address] [place] [address] Emergency Department Summary 09/03/24 MR#: [id number] Acct: [id number] Name: LORI LYNCH Rep #: [id number] : 1945 79 From: Franki Medina DO PCP: [facility] Status:[facility] ER Location: ED HPI History of Present [...] for evaluation. He does see Dr. Mckoy [facility] Medical History Diabetes High cholesterol HTN [...] 09/03/24 13:2 (more content not included)... Normal [facility] Lactic Acidon 09-03-2024 Lactate [Moles/Vol] 1.2 mmol/L Normal 0.4-1.9 [facility] Comment on above: Order Comment: Y Performed By: #### L 503.6000 #### [facility] Laboratory [address] [place], [address] Partial Thromboplast Timeon 09-03-2024 aPTT Coag (Bld) [Time] 28.0 s Normal 24.1-36.2 [facility] Comment on above: Order Comment: BRI W. PREVIOUS SPECIMEN REJECTED DUE TOSPECIMEN BEING HEMOLYZED. 09/03/24 1433 Jd Reyes. Performed By: #### L 300.0330, L300.4310 ####[facility] [address] [place], [place], [address] Prothrombin Time w/INRon INR Coag (PPP) [Relative time] 1.1 {INR} Normal [facility] Comment on above: Order Comment: REDRA W. PREVIOUS SPECIMEN REJECTED DUE TOSPECIMEN BEING HEMOLYZED. 09/03/24 1433 Jd Reyes. Performed By: #### L 300.3900, L300.4310 ####[facility] [address] [place], [address] PT Coag (PPP) [Time] 14.6 s Normal 11.7-14.9 [facility] Comment on above: Order Comment: REDRA W. PREVIOUS SPECIMEN REJECTED DUE TOSPECIMEN BEING HEMOLYZED. 09/03/24 1433 Jd Glaserr. Performed By: #### L 300.3900, L300.4310 ####[facility] [address] [place], [address] INR Normal [facility] Comment on above: Result Comment: This specimen has been REJECTED due to Laboratory criteria: Hemolyzed. ED STAFF has been notified of need of recollection. 09/03/24 143 Jd Reyes Performed By: #### L 503.6005 #### [facility] [address] [place], [address] PROTIME Normal 11.7-14.9 [facility] Comment on above: Result Comment: This specimen has been REJECTED due to Laboratory criteria: Hemolyzed. ED STAFF has been notified of need of recollection. 09/03/24 143 Jd Reyes Performed By: #### L 503.6005 #### [facility] [address] [place], [address] Urinalysis, Completeon 09-03 BACTERIA 1+ /hpf Normal None Seen [facility] Comment on above: Order Comment: Y Performed By: #### L 503.6005 #### [facility] [address] [place], [address] RBC 5-10 SEEN Normal 0-5 [facility] Comment on above: Order Comment: Y Performed By: #### L 503.6005 #### [facility] [address] [place], [address] WBC >100 SEEN Normal 0-5 [facility] Comment on above: Order Comment: Y Performed By: #### L 503.6005 #### [facility] [address] [place], [address] EPI,SQUAMOUS 0 SEEN Normal 0-5 [facility] Comment on above: Order Comment: Y Performed By: #### L 503.6005 #### [facility] [address] [place], [address] Mucus Ql (Urine sed) 0 SEEN Normal [facility] Comment on above: Order Comment: Y Performed By: #### L 503.6005 #### [facility] [address] [place], [address] CREATININE FINGERSTICKon Creatinine [Mass/Vol] 2.5 mg/dL High 0.70-1.30 [facility] Comment on above: Performed By: #### L 503.6005 #### [facility] [address] [place], [address] GFR/1.73 sq M.predicted among non-blacks MDRD (S/P/Bld) [Vol rate/Area] 27.0000 mL/min/{1.73_m2} Low >60 [facility] Comment on above: Performed By: #### L 503.6005 #### [facility] [address] [place], [address] CT Abd/Pelvis W/WO Contrasto n 08-31-2024 CT Abd/Pelvis W/WO Contrast [facility] Imaging Services [address] [place] [address] CT Abd/Pelvis W/WO Contrast MR#: [id number] Acct: [id number] Name: LYNCHLORI Rep #: [id number] : 1945 M 79 From: Sebas Alaniz MD PCP: [place] [facility] Status: REG CLI Study: CT Abd/Pelvis W/WO Contrast Date of Exam: 03/19 Exam# [id number] Ordering Dr: NEDRA,JANUARY ADDENDUM by Dr. Sebas Alaniz MD on 09/01/24 at 1609 [id number] STUDY: CT ABDOMEN AND PELVIS WITH AND WITHOUT CONTRAST REASON FOR EXAM: Male, 79 years old. HYDRONEPHROSIS/HEMORRHAG IC RENAL MASS/THICK WALLED URETER RADIATION DOSAGE (If [...] disc disease. 09/01/24 1609 Date cc: JANUARY [facility] * Signed ADDENDUM by Dr. Sebas Alaniz [...] Sebas Alaniz MD at 16:09 EST , 09/03/24 0942 Date cc: JANUARY [facility] * Signed We are attempting to reach an attending provider to discuss findings. An addendum with communication details will be sent when the communication is complete. [id number] STUDY: CT ABDOMEN AND PELVIS WITH AND WITHOUT CONTRAST REASON FOR EXAM: Male, 79 years old. HYDRONEPHROSIS/HEMORRHAG IC RENAL MASS/THICK WALLED URETER RADIATION DOSAGE (If [...] wall and (more content not included)... Normal [facility] PET/CT Tumor Base -Thigh Sub son 08-24-2024 PET/CT Tumor Base -Thigh Subs [facility] Imaging Services [address] [place] [address] PET/CT Tumor Base -Thigh Subs MR#: [id number] Acct: [id number] Name: LORI LYNCH Rep #: [id number] : 1945 79 From: Sebas Valladares PCP: [facility] Status: REG CL Study: PET/CT Tumor Base -Thigh Subs Date of Exam: Exam# [id number] Ordering Dr: MIREYA SOLIS [id number] EXAMINATION: FDG PET-CT INDICATIONS: An 79-year-old male [...] warrants further clinical investigation. Electronic Signature Sebas Black, D.O. Accurate Quantification of SUVs for this report are calculated using the exclusive [employer], (U.S. Patent No. 10, 674, 983 B2 US 11 [phone] [place] patent EP [phone] B1 ). Standardization and correction of the FDG SUV metric exclusively available with [employer] intellectual property, allow for vendor non-specific objective quantitative sequential FDG PET-CT comparison and otherwise unobtainable optimization of the sensitivity and specificity of the examination. [email or web address] Electronically Signed: Sebas Pleitez DO at 8:03 EDT , CC: MIREYA SOLIS; [facility] Special Librarian: Signed Normal [facility] Chest without Contraston Chest without Contrast [facility] Imaging Services [address] [place], [place] [address] Chest without Contrast MR#: [id number] Acct: [id number] Name: LORI LYNCH Rep #: [id number] : 1945 78 From: Noam Cueva PCP: [facility] Status: REG CLI Study: Chest without Contrast Date of Exam: 07/30/24 Exam# [id number] Ordering Dr: MIREYA PARK [id number] STUDY: CT Chest W/O Contrast Injection 08/01/2024 7:04 PM REASON FOR EXAM: Male, 78 years old. Malignant neoplasm of upper lobe, right bronchus or lung Individualized dose optimization techniques were used for this CT. TECHNIQUE: Transaxial imaging was performed without contrast material. COMPARISON: PET 01.20.24 FINDINGS: There are degenerative changes of the [...] Signed: Noam Hill MD at 19:10 EDT Reading Location ID and State: [facility] / [place] , Service support , CC: MIREYA PARK; [facility] Special Librarian: Signed Normal [facility] Basic Metabolic Profile (BMP )on 07-20-2024 BUN Normal -18 [facility] Comment on above: Result Comment: Canc elled via OM: Order cancelled - Patient discharged Performed By: #### L 503.6005 #### [facility] Laboratory [address] [place], [place], [address] BUN/CRE Normal 10-20 [facility] Comment on above: Result Comment: Canc elled via OM: Order cancelled - Patient discharged Performed By: #### L 503.6005 #### [facility] [address] [place], [place], [address] CA,Total Normal 8.5-10.1 [facility] Comment on above: Result Comment: Canc elled via OM: Order cancelled - Patient discharged Performed By: #### L 503.6005 #### [facility] [address] [place], [address] CL Normal 98-107 [facility] Comment on above: Result Comment: Canc elled via OM: Order cancelled - Patient discharged Performed By: #### L 503.6005 #### [facility] [address] [place], [address] CO2 Normal 21.0-32.0 [facility] Comment on above: Result Comment: Canc elled via OM: Order cancelled - Patient discharged Performed By: #### L 503.6005 #### [facility] [address] [place], [address] CREAT,SERUM Normal 0.70-1.30 [facility] Comment on above: Result Comment: Canc elled via OM: Order cancelled - Patient discharged Performed By: #### L 503.6005 #### [facility] [address] [place], [address] EST GFR Normal >60 [facility] Comment on above: Result Comment: Canc elled via OM: Order cancelled - Patient discharged Performed By: #### L 503.6005 #### [facility] [address] [place], [address] EST GFR - AA Normal >60 [facility] Comment on above: Result Comment: Canc elled via OM: Order cancelled - Patient discharged Performed By: #### L 503.6005 #### [facility] [address] [place], [address] GAP Normal 5-15 [facility] Comment on above: Result Comment: Canc elled via OM: Order cancelled - Patient discharged Performed By: #### L 503.6005 #### [facility] [address] [place], [address] GLU Normal 74-106 [facility] Comment on above: Result Comment: Canc elled via OM: Order cancelled - Patient discharged Performed By: #### L 503.6005 #### [facility] [address] [place], [address] Potassium Normal 3.5-5.1 [facility] Comment on above: Result Comment: Canc elled via OM: Order cancelled - Patient discharged Performed By: #### L 503.6005 #### [facility] [address] [place], [address] Basic Metabolic Profile (BMP) Normal 136-145 [facility] Comment on above: Result Comment: Canc elled via OM: Order cancelled - Patient discharged Performed By: #### L 503.6005 #### [facility] [address] [place], [address] CBC W/Diff, Automatedon 09-2 Absolute Neut Normal 2.0-7.7 [facility] Comment on above: Result Comment: Canc elled via OM: Order cancelled - Patient discharged Performed By: #### L 503.6005 #### [facility] [address] [place], [address] HCT Normal 40-54 [facility] Comment on above: Result Comment: Canc elled via OM: Order cancelled - Patient discharged Performed By: #### L 503.6005 #### [facility] [address] [place], [address] HGB Normal 13.0-16.5 [facility] Comment on above: Result Comment: Canc elled via OM: Order cancelled - Patient discharged Performed By: #### L 503.6005 #### [facility] [address] [place], [address] MCH Normal 27.0-32.0 [facility] Comment on above: Result Comment: Canc elled via OM: Order cancelled - Patient discharged Performed By: #### L 503.6005 #### [facility] [address] [place], [address] MCHC Normal 32-36 [facility] Comment on above: Result Comment: Canc elled via OM: Order cancelled - Patient discharged Performed By: #### L 503.6005 #### [facility] [address] [place], [address] MCV Normal 80-94 [facility] Comment on above: Result Comment: Canc elled via OM: Order cancelled - Patient discharged Performed By: #### L 503.6005 #### [facility] [address] [place], [address] NEUT% Normal 47-70 [facility] Comment on above: Result Comment: Canc elled via OM: Order cancelled - Patient discharged Performed By: #### L 503.6005 #### [facility] [address] [place], [address] PLT Normal 150-450 [facility] Comment on above: Result Comment: Canc elled via OM: Order cancelled - Patient discharged Performed By: #### L 503.6005 #### [facility] [address] [place], [address] RBC Normal 4.6-6.2 [facility] Comment on above: Result Comment: Canc elled via OM: Order cancelled - Patient discharged Performed By: #### L 503.6005 #### [facility] [address] [place], [address] RDW CV Normal 11.6-14.6 [facility] Comment on above: Result Comment: Canc elled via OM: Order cancelled - Patient discharged Performed By: #### L 503.6005 #### [facility] [address] [place], [address] RDW SD Normal 35.1-43.9 [facility] Comment on above: Result Comment: Canc elled via OM: Order cancelled - Patient discharged Performed By: #### L 503.6005 #### [facility] [address] [place], [address] WBC Normal 4.4-11.0 [facility] Comment on above: Result Comment: Canc elled via OM: Order cancelled - Patient discharged Performed By: #### L 503.6005 #### [facility] [address] [place], [address] Basic Metabolic Profile (BMP )on 07-19-2024 BUN Normal 7-18 [facility] Comment on above: Result Comment: Canc elled via OM: Order cancelled - Patient discharged Performed By: #### L 100.0100, L500.2500 ####[facility] [address] [place], [address] BUN/CRE Normal 10-20 [facility] Comment on above: Result Comment: Canc elled via OM: Order cancelled - Patient discharged Performed By: #### L 100.0100, L500.2500 ####[facility] [address] [place], [address] CA,Total Normal 8.5-10.1 [facility] Comment on above: Result Comment: Canc elled via OM: Order cancelled - Patient discharged Performed By: #### L 100.0100, L500.2500 ####[facility] [address] [place], [address] CL Normal 98-107 [facility] Comment on above: Result Comment: Canc elled via OM: Order cancelled - Patient discharged Performed By: #### L 100.0100, L500.2500 ####[facility] [address] [place], [address] CO2 Normal 21.0-32.0 [facility] Comment on above: Result Comment: Canc elled via OM: Order cancelled - Patient discharged Performed By: #### L 100.0100, L500.2500 ####[facility] [address] [place], [address] CREAT,SERUM Normal 0.70-1.30 [facility] Comment on above: Result Comment: Canc elled via OM: Order cancelled - Patient discharged Performed By: #### L 100.0100, L500.2500 ####[facility] [address] [place], [address] EST GFR Normal >60 [facility] Comment on above: Result Comment: Canc elled via OM: Order cancelled - Patient discharged Performed By: #### L 100.0100, L500.2500 ####[facility] [address] [place], [address] EST GFR - AA Normal >60 [facility] Comment on above: Result Comment: Canc elled via OM: Order cancelled - Patient discharged Performed By: #### L 100.0100, L500.2500 ####[facility] [address] [place], [address] GAP Normal 5-15 [facility] Comment on above: Result Comment: Canc elled via OM: Order cancelled - Patient discharged Performed By: #### L 100.0100, L500.2500 ####[facility] [address] [place], [address] GLU Normal 74-106 [facility] Comment on above: Result Comment: Canc elled via OM: Order cancelled - Patient discharged Performed By: #### L 100.0100, L500.2500 ####[facility] [address] [place], [address] Potassium Normal 3.5-5.1 [facility] Comment on above: Result Comment: Canc elled via OM: Order cancelled - Patient discharged Performed By: #### L 100.0100, L500.2500 ####[facility] [address] [place], [address] Basic Metabolic Profile (BMP) Normal 136-145 [facility] Comment on above: Result Comment: Canc elled via OM: Order cancelled - Patient discharged Performed By: #### L 100.0100, L500.2500 ####[facility] [address] [place], [address] CBC W/Diff, Automatedon - Absolute Neut Normal 2.0-7.7 [facility] Comment on above: Result Comment: Canc elled via OM: Order cancelled - Patient discharged Performed By: #### L 100.0100, L500.2500 ####[facility] [address] [place], [address] HCT Normal 40-54 [facility] Comment on above: Result Comment: Canc elled via OM: Order cancelled - Patient discharged Performed By: #### L 100.0100, L500.2500 ####[facility] [address] [place], [address] HGB Normal 13.0-16.5 [facility] Comment on above: Result Comment: Canc elled via OM: Order cancelled - Patient discharged Performed By: #### L 100.0100, L500.2500 ####[facility] [address] [place], [address] MCH Normal 27.0-32.0 [facility] Comment on above: Result Comment: Canc elled via OM: Order cancelled - Patient discharged Performed By: #### L 100.0100, L500.2500 ####[facility] [address] [place], [address] MCHC Normal 32-36 [facility] Comment on above: Result Comment: Canc elled via OM: Order cancelled - Patient discharged Performed By: #### L 100.0100, L500.2500 ####[facility] [address] [place], [address] MCV Normal 80-94 [facility] Comment on above: Result Comment: Canc elled via OM: Order cancelled - Patient discharged Performed By: #### L 100.0100, L500.2500 ####[facility] [address] [place], [address] NEUT% Normal 47-70 [facility] Comment on above: Result Comment: Canc elled via OM: Order cancelled - Patient discharged Performed By: #### L 100.0100, L500.2500 ####[facility] [address] [place], [address] PLT Normal 150-450 [facility] Comment on above: Result Comment: Canc elled via OM: Order cancelled - Patient discharged Performed By: #### L 100.0100, L500.2500 ####[facility] [address] [place], [address] RBC Normal 4.6-6.2 [facility] Comment on above: Result Comment: Canc elled via OM: Order cancelled - Patient discharged Performed By: #### L 100.0100, L500.2500 ####[facility] [address] [place], [address] RDW CV Normal 11.6-14.6 [facility] Comment on above: Result Comment: Canc elled via OM: Order cancelled - Patient discharged Performed By: #### L 100.0100, L500.2500 ####[facility] [address] [place], [address] RDW SD Normal 35.1-43.9 [facility] Comment on above: Result Comment: Canc elled via OM: Order cancelled - Patient discharged Performed By: #### L 100.0100, L500.2500 ####[facility] [address] [place], [address] WBC Normal 4.4-11.0 [facility] Comment on above: Result Comment: Canc elled via OM: Order cancelled - Patient discharged Performed By: #### L 100.0100, L500.2500 ####[facility] [address] [place], [address] Basic Metabolic Profile (BMP )on 07-18-2024 BUN Normal 7-18 [facility] Comment on above: Result Comment: Canc elled via OM: Order cancelled - Patient discharged Performed By: #### L 400.0001 #### [facility] [address] [place], [address] BUN/CRE Normal 10-20 [facility] Comment on above: Result Comment: Canc elled via OM: Order cancelled - Patient discharged Performed By: #### L 400.0001 #### [facility] [address] [place], [address] CA,Total Normal 8.5-10.1 [facility] Comment on above: Result Comment: Canc elled via OM: Order cancelled - Patient discharged Performed By: #### L 400.0001 #### [facility] [address] [place], [address] CL Normal 98-107 [facility] Comment on above: Result Comment: Canc elled via OM: Order cancelled - Patient discharged Performed By: #### L 400.0001 #### [facility] [address] [place], [address] CO2 Normal 21.0-32.0 [facility] Comment on above: Result Comment: Canc elled via OM: Order cancelled - Patient discharged Performed By: #### L 400.0001 #### [facility] [address] [place], [address] CREAT,SERUM Normal 0.70-1.30 [facility] Comment on above: Result Comment: Canc elled via OM: Order cancelled - Patient discharged Performed By: #### L 400.0001 #### [facility] [address] [place], [address] EST GFR Normal >60 [facility] Comment on above: Result Comment: Canc elled via OM: Order cancelled - Patient discharged Performed By: #### L 400.0001 #### [facility] [address] [place], [address] EST GFR - AA Normal >60 [facility] Comment on above: Result Comment: Canc elled via OM: Order cancelled - Patient discharged Performed By: #### L 400.0001 #### [facility] [address] [place], [address] GAP Normal 5-15 [facility] Comment on above: Result Comment: Canc elled via OM: Order cancelled - Patient discharged Performed By: #### L 400.0001 #### [facility] [address] [place], [address] GLU Normal 74-106 [facility] Comment on above: Result Comment: Canc elled via OM: Order cancelled - Patient discharged Performed By: #### L 400.0001 #### [facility] [address] [place], [address] Potassium Normal 3.5-5.1 [facility] Comment on above: Result Comment: Canc elled via OM: Order cancelled - Patient discharged Performed By: #### L 400.0001 #### [facility] [address] [place], [address] Basic Metabolic Profile (BMP) Normal 136-145 [facility] Comment on above: Result Comment: Canc elled via OM: Order cancelled - Patient discharged Performed By: #### L 400.0001 #### [facility] [address] [place], [address] CBC W/Diff, Automatedon 09-2 Absolute Neut Normal 2.0-7.7 [facility] Comment on above: Result Comment: Canc elled via OM: Order cancelled - Patient discharged Performed By: #### L 400.0001 #### [facility] [address] [place], [address] HCT Normal 40-54 [facility] Comment on above: Result Comment: Canc elled via OM: Order cancelled - Patient discharged Performed By: #### L 400.0001 #### [facility] [address] [place], [address] HGB Normal 13.0-16.5 [facility] Comment on above: Result Comment: Canc elled via OM: Order cancelled - Patient discharged Performed By: #### L 400.0001 #### [facility] [address] [place], [address] MCH Normal 27.0-32.0 [facility] Comment on above: Result Comment: Canc elled via OM: Order cancelled - Patient discharged Performed By: #### L 400.0001 #### [facility] [address] [place], [address] MCHC Normal 32-36 [facility] Comment on above: Result Comment: Canc elled via OM: Order cancelled - Patient discharged Performed By: #### L 400.0001 #### [facility] [address] [place], [address] MCV Normal 80-94 [facility] Comment on above: Result Comment: Canc elled via OM: Order cancelled - Patient discharged Performed By: #### L 400.0001 #### [facility] [address] [place], [address] NEUT% Normal 47-70 [facility] Comment on above: Result Comment: Canc elled via OM: Order cancelled - Patient discharged Performed By: #### L 400.0001 #### [facility] [address] [place], [address] PLT Normal 150-450 [facility] Comment on above: Result Comment: Canc elled via OM: Order cancelled - Patient discharged Performed By: #### L 400.0001 #### [facility] [address] [place], [address] RBC Normal 4.6-6.2 [facility] Comment on above: Result Comment: Canc elled via OM: Order cancelled - Patient discharged Performed By: #### L 400.0001 #### [facility] [address] [place], [address] RDW CV Normal 11.6-14.6 [facility] Comment on above: Result Comment: Canc elled via OM: Order cancelled - Patient discharged Performed By: #### L 400.0001 #### [facility] [address] [place], [address] RDW SD Normal 35.1-43.9 [facility] Comment on above: Result Comment: Canc elled via OM: Order cancelled - Patient discharged Performed By: #### L 400.0001 #### [facility] [address] [place], [address] WBC Normal 4.4-11.0 [facility] Comment on above: Result Comment: Canc elled via OM: Order cancelled - Patient discharged Performed By: #### L 400.0001 #### [facility] [address] [place], [address] Basic Metabolic Profile (BMP )on 07-17-2024 BUN Normal 7-18 [facility] Comment on above: Result Comment: Canc elled via OM: Order cancelled - Patient discharged Performed By: #### L 400.0001 #### [facility] [address] [place], [address] BUN/CRE Normal 10-20 [facility] Comment on above: Result Comment: Canc elled via OM: Order cancelled - Patient discharged Performed By: #### L 400.0001 #### [facility] [address] [place], [address] CA,Total Normal 8.5-10.1 [facility] Comment on above: Result Comment: Canc elled via OM: Order cancelled - Patient discharged Performed By: #### L 400.0001 #### [facility] [address] [place], [address] CL Normal 98-107 [facility] Comment on above: Result Comment: Canc elled via OM: Order cancelled - Patient discharged Performed By: #### L 400.0001 #### [facility] [address] [place], [address] CO2 Normal 21.0-32.0 [facility] Comment on above: Result Comment: Canc elled via OM: Order cancelled - Patient discharged Performed By: #### L 400.0001 #### [facility] [address] [place], [address] CREAT,SERUM Normal 0.70-1.30 [facility] Comment on above: Result Comment: Canc elled via OM: Order cancelled - Patient discharged Performed By: #### L 400.0001 #### [facility] [address] [place], [address] EST GFR Normal >60 [facility] Comment on above: Result Comment: Canc elled via OM: Order cancelled - Patient discharged Performed By: #### L 400.0001 #### [facility] [address] [place], [address] EST GFR - AA Normal >60 [facility] Comment on above: Result Comment: Canc elled via OM: Order cancelled - Patient discharged Performed By: #### L 400.0001 #### [facility] [address] [place], [address] GAP Normal 5-15 [facility] Comment on above: Result Comment: Canc elled via OM: Order cancelled - Patient discharged Performed By: #### L 400.0001 #### [facility] [address] [place], [address] GLU Normal 74-106 [facility] Comment on above: Result Comment: Canc elled via OM: Order cancelled - Patient discharged Performed By: #### L 400.0001 #### [facility] [address] [place], [address] Potassium Normal 3.5-5.1 [facility] Comment on above: Result Comment: Canc elled via OM: Order cancelled - Patient discharged Performed By: #### L 400.0001 #### [facility] [address] [place], [address] Basic Metabolic Profile (BMP) Normal 136-145 [facility] Comment on above: Result Comment: Canc elled via OM: Order cancelled - Patient discharged Performed By: #### L 400.0001 #### [facility] [address] [place], [address] CBC W/Diff, Automatedon 09-2 Absolute Neut Normal 2.0-7.7 [facility] Comment on above: Result Comment: Canc elled via OM: Order cancelled - Patient discharged Performed By: #### L 400.0001 #### [facility] [address] [place], [address] HCT Normal 40-54 [facility] Comment on above: Result Comment: Canc elled via OM: Order cancelled - Patient discharged Performed By: #### L 400.0001 #### [facility] [address] [place], [address] HGB Normal 13.0-16.5 [facility] Comment on above: Result Comment: Canc elled via OM: Order cancelled - Patient discharged Performed By: #### L 400.0001 #### [facility] [address] [place], [address] MCH Normal 27.0-32.0 [facility] Comment on above: Result Comment: Canc elled via OM: Order cancelled - Patient discharged Performed By: #### L 400.0001 #### [facility] [address] [place], [address] MCHC Normal 32-36 [facility] Comment on above: Result Comment: Canc elled via OM: Order cancelled - Patient discharged Performed By: #### L 400.0001 #### [facility] [address] [place], [address] MCV Normal 80-94 [facility] Comment on above: Result Comment: Canc elled via OM: Order cancelled - Patient discharged Performed By: #### L 400.0001 #### [facility] [address] [place], [address] NEUT% Normal 47-70 [facility] Comment on above: Result Comment: Canc elled via OM: Order cancelled - Patient discharged Performed By: #### L 400.0001 #### [facility] [address] [place], [address] PLT Normal 150-450 [facility] Comment on above: Result Comment: Canc elled via OM: Order cancelled - Patient discharged Performed By: #### L 400.0001 #### [facility] [address] [place], [address] RBC Normal 4.6-6.2 [facility] Comment on above: Result Comment: Canc elled via OM: Order cancelled - Patient discharged Performed By: #### L 400.0001 #### [facility] [address] [place], [address] RDW CV Normal 11.6-14.6 [facility] Comment on above: Result Comment: Canc elled via OM: Order cancelled - Patient discharged Performed By: #### L 400.0001 #### [facility] [address] [place], [address] RDW SD Normal 35.1-43.9 [facility] Comment on above: Result Comment: Canc elled via OM: Order cancelled - Patient discharged Performed By: #### L 400.0001 #### [facility] [address] [place], [address] WBC Normal 4.4-11.0 [facility] Comment on above: Result Comment: Canc elled via OM: Order cancelled - Patient discharged Performed By: #### L 400.0001 #### [facility] [address] [place], [address] Basic Metabolic Profile (BMP )on 07-16-2024 BUN Normal 7-18 [facility] Comment on above: Result Comment: Canc elled via OM: Order cancelled - Patient discharged Performed By: #### L 100.0100, L500.2500 #### [facility] [address] [place], [address] BUN/CRE Normal 10-20 [facility] Comment on above: Result Comment: Canc elled via OM: Order cancelled - Patient discharged Performed By: #### L 100.0100, L500.2500 #### [facility] [address] [place], [address] CA,Total Normal 8.5-10.1 [facility] Comment on above: Result Comment: Canc elled via OM: Order cancelled - Patient discharged Performed By: #### L 100.0100, L500.2500 #### [facility] [address] [place], [address] CL Normal 98-107 [facility] Comment on above: Result Comment: Canc elled via OM: Order cancelled - Patient discharged Performed By: #### L 100.0100, L500.2500 #### [facility] [address] [place], [address] CO2 Normal 21.0-32.0 [facility] Comment on above: Result Comment: Canc elled via OM: Order cancelled - Patient discharged Performed By: #### L 100.0100, L500.2500 #### [facility] [address] [place], [address] CREAT,SERUM Normal 0.70-1.30 [facility] Comment on above: Result Comment: Canc elled via OM: Order cancelled - Patient discharged Performed By: #### L 100.0100, L500.2500 #### [facility] [address] [place], [address] EST GFR Normal >60 [facility] Comment on above: Result Comment: Canc elled via OM: Order cancelled - Patient discharged Performed By: #### L 100.0100, L500.2500 #### [facility] [address] [place], [address] EST GFR - AA Normal >60 [facility] Comment on above: Result Comment: Canc elled via OM: Order cancelled - Patient discharged Performed By: #### L 100.0100, L500.2500 #### [facility] [address] [place], [address] GAP Normal 5-15 [facility] Comment on above: Result Comment: Canc elled via OM: Order cancelled - Patient discharged Performed By: #### L 100.0100, L500.2500 #### [facility] [address] [place], [address] GLU Normal 74-106 [facility] Comment on above: Result Comment: Canc elled via OM: Order cancelled - Patient discharged Performed By: #### L 100.0100, L500.2500 #### [facility] [address] [place], [address] Potassium Normal 3.5-5.1 [facility] Comment on above: Result Comment: Canc elled via OM: Order cancelled - Patient discharged Performed By: #### L 100.0100, L500.2500 #### [facility] [address] [place], [address] Basic Metabolic Profile (BMP) Normal 136-145 [facility] Comment on above: Result Comment: Canc elled via OM: Order cancelled - Patient discharged Performed By: #### L 100.0100, L500.2500 #### [facility] [address] [place], [address] CBC W/Diff, Automatedon 09-2 0-2023 Absolute Neut Normal 2.0-7.7 [facility] Comment on above: Result Comment: Canc elled via OM: Order cancelled - Patient discharged Performed By: #### L 100.0100, L500.2500 #### [facility] [address] [place], [address] HCT Normal 40-54 [facility] Comment on above: Result Comment: Canc elled via OM: Order cancelled - Patient discharged Performed By: #### L 100.0100, L500.2500 #### [facility] [address] [place], [address] HGB Normal 13.0-16.5 [facility] Comment on above: Result Comment: Canc elled via OM: Order cancelled - Patient discharged Performed By: #### L 100.0100, L500.2500 #### [facility] [address] [place], [address] MCH Normal 27.0-32.0 [facility] Comment on above: Result Comment: Canc elled via OM: Order cancelled - Patient discharged Performed By: #### L 100.0100, L500.2500 #### [facility] [address] [place], [address] MCHC Normal 32-36 [facility] Comment on above: Result Comment: Canc elled via OM: Order cancelled - Patient discharged Performed By: #### L 100.0100, L500.2500 #### [facility] [address] [place], [address] MCV Normal 80-94 [facility] Comment on above: Result Comment: Canc elled via OM: Order cancelled - Patient discharged Performed By: #### L 100.0100, L500.2500 #### [facility] [address] [place], [address] NEUT% Normal 47-70 [facility] Comment on above: Result Comment: Canc elled via OM: Order cancelled - Patient discharged Performed By: #### L 100.0100, L500.2500 #### [facility] [address] [place], [address] PLT Normal 150-450 [facility] Comment on above: Result Comment: Canc elled via OM: Order cancelled - Patient discharged Performed By: #### L 100.0100, L500.2500 #### [facility] [address] [place], [address] RBC Normal 4.6-6.2 [facility] Comment on above: Result Comment: Canc elled via OM: Order cancelled - Patient discharged Performed By: #### L 100.0100, L500.2500 #### [facility] [address] [place], [address] RDW CV Normal 11.6-14.6 [facility] Comment on above: Result Comment: Canc elled via OM: Order cancelled - Patient discharged Performed By: #### L 100.0100, L500.2500 #### [facility] [address] [place], [address] RDW SD Normal 35.1-43.9 [facility] Comment on above: Result Comment: Canc elled via OM: Order cancelled - Patient discharged Performed By: #### L 100.0100, L500.2500 #### [facility] [address] [place], [address] WBC Normal 4.4-11.0 [facility] Comment on above: Result Comment: Canc elled via OM: Order cancelled - Patient discharged Performed By: #### L 100.0100, L500.2500 #### [facility] [address] [place], [address] Basic Metabolic Profile (BMP )on 07-15-2024 BUN Normal 7-18 [facility] Comment on above: Result Comment: Canc elled via OM: Order cancelled - Patient discharged Performed By: #### L 100.0100, L500.2500 #### [facility] [address] [place], [address] BUN/CRE Normal 10-20 [facility] Comment on above: Result Comment: Canc elled via OM: Order cancelled - Patient discharged Performed By: #### L 100.0100, L500.2500 #### [facility] [address] [place], [address] CA,Total Normal 8.5-10.1 [facility] Comment on above: Result Comment: Canc elled via OM: Order cancelled - Patient discharged Performed By: #### L 100.0100, L500.2500 #### [facility] [address] [place], [address] CL Normal 98-107 [facility] Comment on above: Result Comment: Canc elled via OM: Order cancelled - Patient discharged Performed By: #### L 100.0100, L500.2500 #### [facility] [address] [place], [address] CO2 Normal 21.0-32.0 [facility] Comment on above: Result Comment: Canc elled via OM: Order cancelled - Patient discharged Performed By: #### L 100.0100, L500.2500 #### [facility] [address] [place], [address] CREAT,SERUM Normal 0.70-1.30 [facility] Comment on above: Result Comment: Canc elled via OM: Order cancelled - Patient discharged Performed By: #### L 100.0100, L500.2500 #### [facility] [address] [place], [address] EST GFR Normal >60 [facility] Comment on above: Result Comment: Canc elled via OM: Order cancelled - Patient discharged Performed By: #### L 100.0100, L500.2500 #### [facility] [address] [place], [address] EST GFR - AA Normal >60 [facility] Comment on above: Result Comment: Canc elled via OM: Order cancelled - Patient discharged Performed By: #### L 100.0100, L500.2500 #### [facility] [address] [place], [address] GAP Normal 5-15 [facility] Comment on above: Result Comment: Canc elled via OM: Order cancelled - Patient discharged Performed By: #### L 100.0100, L500.2500 #### [facility] [address] [place], [address] GLU Normal 74-106 [facility] Comment on above: Result Comment: Canc elled via OM: Order cancelled - Patient discharged Performed By: #### L 100.0100, L500.2500 #### [facility] [address] [place], [address] Potassium Normal 3.5-5.1 [facility] Comment on above: Result Comment: Canc elled via OM: Order cancelled - Patient discharged Performed By: #### L 100.0100, L500.2500 #### [facility] [address] [place], [address] Basic Metabolic Profile (BMP) Normal 136-145 [facility] Comment on above: Result Comment: Canc elled via OM: Order cancelled - Patient discharged Performed By: #### L 100.0100, L500.2500 #### [facility] [address] [place], [address] CBC W/Diff, Automatedon 06-27 PATH REV Reviewed Normal [facility] Comment on above: Result Comment: Leuk ocytosis. Microcytic anemia. Clinical correlation necessary. Trent Corea M.D. 07/15/24 AMENDED REPORT 07/15/24 1304 PATH REV previously reported as: February Performed By: #### L 100.0100, L500.2500 #### [facility] [address] [place], [address] Absolute Neut Normal 2.0-7.7 [facility] Comment on above: Result Comment: Canc elled via OM: Order cancelled - Patient discharged Performed By: #### L 100.0100, L500.2500 #### [facility] [address] [place], [address] HCT Normal 40-54 [facility] Comment on above: Result Comment: Canc elled via OM: Order cancelled - Patient discharged Performed By: #### L 100.0100, L500.2500 #### [facility] [address] [place], [address] HGB Normal 13.0-16.5 [facility] Comment on above: Result Comment: Canc elled via OM: Order cancelled - Patient discharged Performed By: #### L 100.0100, L500.2500 #### [facility] [address] [place], [address] MCH Normal 27.0-32.0 [facility] Comment on above: Result Comment: Canc elled via OM: Order cancelled - Patient discharged Performed By: #### L 100.0100, L500.2500 #### [facility] [address] [place], [address] MCHC Normal 32-36 [facility] Comment on above: Result Comment: Canc elled via OM: Order cancelled - Patient discharged Performed By: #### L 100.0100, L500.2500 #### [facility] [address] [place], [address] MCV Normal 80-94 [facility] Comment on above: Result Comment: Canc elled via OM: Order cancelled - Patient discharged Performed By: #### L 100.0100, L500.2500 #### [facility] [address] [place], [address] NEUT% Normal 47-70 [facility] Comment on above: Result Comment: Canc elled via OM: Order cancelled - Patient discharged Performed By: #### L 100.0100, L500.2500 #### [facility] [address] [place], [address] PLT Normal 150-450 [facility] Comment on above: Result Comment: Canc elled via OM: Order cancelled - Patient discharged Performed By: #### L 100.0100, L500.2500 #### [facility] [address] [place], [address] RBC Normal 4.6-6.2 [facility] Comment on above: Result Comment: Canc elled via OM: Order cancelled - Patient discharged Performed By: #### L 100.0100, L500.2500 #### [facility] [address] [place], [address] RDW CV Normal 11.6-14.6 [facility] Comment on above: Result Comment: Canc elled via OM: Order cancelled - Patient discharged Performed By: #### L 100.0100, L500.2500 #### [facility] [address] [place], [address] RDW SD Normal 35.1-43.9 [facility] Comment on above: Result Comment: Canc elled via OM: Order cancelled - Patient discharged Performed By: #### L 100.0100, L500.2500 #### [facility] [address] [place], [address] WBC Normal 4.4-11.0 [facility] Comment on above: Result Comment: Canc elled via OM: Order cancelled - Patient discharged Performed By: #### L 100.0100, L500.2500 #### [facility] [address] [place], [address] Basic Metabolic Profile (BMP )on 07-14-2024 BUN Normal 7-18 [facility] Comment on above: Result Comment: Canc elled via OM: Order cancelled - Patient discharged Performed By: #### L 400.0001 #### [facility] [address] [place], [address] BUN/CRE Normal 10-20 [facility] Comment on above: Result Comment: Canc elled via OM: Order cancelled - Patient discharged Performed By: #### L 400.0001 #### [facility] [address] [place], [address] CA,Total Normal 8.5-10.1 [facility] Comment on above: Result Comment: Canc elled via OM: Order cancelled - Patient discharged Performed By: #### L 400.0001 #### [facility] [address] [place], [address] CL Normal 98-107 [facility] Comment on above: Result Comment: Canc elled via OM: Order cancelled - Patient discharged Performed By: #### L 400.0001 #### [facility] [address] [place], [address] CO2 Normal 21.0-32.0 [facility] Comment on above: Result Comment: Canc elled via OM: Order cancelled - Patient discharged Performed By: #### L 400.0001 #### [facility] [address] [place], [address] CREAT,SERUM Normal 0.70-1.30 [facility] Comment on above: Result Comment: Canc elled via OM: Order cancelled - Patient discharged Performed By: #### L 400.0001 #### [facility] [address] [place], [address] EST GFR Normal >60 [facility] Comment on above: Result Comment: Canc elled via OM: Order cancelled - Patient discharged Performed By: #### L 400.0001 #### [facility] [address] [place], [address] EST GFR - AA Normal >60 [facility] Comment on above: Result Comment: Canc elled via OM: Order cancelled - Patient discharged Performed By: #### L 400.0001 #### [facility] [address] [place], [address] GAP Normal 5-15 [facility] Comment on above: Result Comment: Canc elled via OM: Order cancelled - Patient discharged Performed By: #### L 400.0001 #### [facility] [address] [place], [address] GLU Normal 74-106 [facility] Comment on above: Result Comment: Canc elled via OM: Order cancelled - Patient discharged Performed By: #### L 400.0001 #### [facility] [address] [place], [address] Potassium Normal 3.5-5.1 [facility] Comment on above: Result Comment: Canc elled via OM: Order cancelled - Patient discharged Performed By: #### L 400.0001 #### [facility] [address] [place], [address] Basic Metabolic Profile (BMP) Normal 136-145 [facility] Comment on above: Result Comment: Canc elled via OM: Order cancelled - Patient discharged Performed By: #### L 400.0001 #### [facility] [address] [place], [address] CBC W/Diff, Automatedon 09- Absolute Neut Normal 2.0-7.7 [facility] Comment on above: Result Comment: Canc elled via OM: Order cancelled - Patient discharged Performed By: #### L 400.0001 #### [facility] [address] [place], [address] HCT Normal 40-54 [facility] Comment on above: Result Comment: Canc elled via OM: Order cancelled - Patient discharged Performed By: #### L 400.0001 #### [facility] [address] [place], [address] HGB Normal 13.0-16.5 [facility] Comment on above: Result Comment: Canc elled via OM: Order cancelled - Patient discharged Performed By: #### L 400.0001 #### [facility] [address] [place], [address] MCH Normal 27.0-32.0 [facility] Comment on above: Result Comment: Canc elled via OM: Order cancelled - Patient discharged Performed By: #### L 400.0001 #### [facility] [address] [place], [address] MCHC Normal 32-36 [facility] Comment on above: Result Comment: Canc elled via OM: Order cancelled - Patient discharged Performed By: #### L 400.0001 #### [facility] [address] [place], [address] MCV Normal 80-94 [facility] Comment on above: Result Comment: Canc elled via OM: Order cancelled - Patient discharged Performed By: #### L 400.0001 #### [facility] [address] [place], [address] NEUT% Normal 47-70 [facility] Comment on above: Result Comment: Canc elled via OM: Order cancelled - Patient discharged Performed By: #### L 400.0001 #### [facility] [address] [place], [address] PLT Normal 150-450 [facility] Comment on above: Result Comment: Canc elled via OM: Order cancelled - Patient discharged Performed By: #### L 400.0001 #### [facility] [address] [place], [address] RBC Normal 4.6-6.2 [facility] Comment on above: Result Comment: Canc elled via OM: Order cancelled - Patient discharged Performed By: #### L 400.0001 #### [facility] [address] [place], [address] RDW CV Normal 11.6-14.6 [facility] Comment on above: Result Comment: Canc elled via OM: Order cancelled - Patient discharged Performed By: #### L 400.0001 #### [facility] [address] [place], [address] RDW SD Normal 35.1-43.9 [facility] Comment on above: Result Comment: Canc elled via OM: Order cancelled - Patient discharged Performed By: #### L 400.0001 #### [facility] [address] [place], [address] WBC Normal 4.4-11.0 [facility] Comment on above: Result Comment: Canc elled via OM: Order cancelled - Patient discharged Performed By: #### L 400.0001 #### [facility] [address] [place], [address] Culture, Blood (WB)on 2023 CUB Blood cultures x2, f rom two different sites No growth in 5 days. Normal [facility] Comment on above: Performed By: #### L 503.6005 #### [facility] [address] [place], [address] Basic Metabolic Profile (BMP )on 07-13-2024 BUN/CRE 21.1 RATIO High 10-20 [facility] Comment on above: Performed By: #### L 100.0100, L500.2500 #### [facility] [address] [place], [address] CA,Total 9.0 mg/dL Normal 8.5-10.1 [facility] Comment on above: Performed By: #### L 100.0100, L500.2500 #### [facility] [address] [place], [address] Chloride [Moles/Vol] 107 mmol/L Normal 98-107 [facility] Comment on above: Performed By: #### L 100.0100, L500.2500 #### [facility] [address] [place], [address] CO2 [Moles/Vol] 18.0 mmol/L Low 21.0-32.0 [facility] Comment on above: Performed By: #### L 100.0100, L500.2500 #### [facility] [address] [place], [address] Creatinine [Mass/Vol] 1.90 mg/dL High 0.70-1.30 [facility] Comment on above: Result Comment: The validity of the calculated GFR GFRAA in patients over 70 years has not been determined. Clinical correlation is essential. Performed By: #### L 100.0100, L500.2500 #### [facility] [address] [place], [address] ECRCL 36.55 ml/min Normal [facility] Comment on above: Performed By: #### L 100.0100, L500.2500 #### [facility] [address] [place], [address] EST GFR - AA 44 mL/min Low >60 [facility] Comment on above: Result Comment: Afri can Thai GFR Calc Performed By: #### L 100.0100, L500.2500 #### [facility] [address] [place], [address] GAP 9 Normal 5-15 [facility] Comment on above: Performed By: #### L 100.0100, L500.2500 #### [facility] [address] [place], [address] GFR/1.73 sq M.predicted among non-blacks MDRD (S/P/Bld) [Vol rate/Area] 36 mL/min/{1.73_m2} Low >60 [facility] Comment on above: Result Comment: Non- GFR Calc Performed By: #### L 100.0100, L500.2500 #### [facility] [address] [place], [address] Glucose [Mass/Vol] 237 mg/dL High 74-106 [facility] Comment on above: Result Comment: Gluc ose result greater than or equal to 200 mg/dL suggests DIABETES MELLITUS per A.D.A. criteria. Performed By: #### L 100.0100, L500.2500 #### [facility] [address] [place], [address] Potassium [Moles/Vol] 4.0 mmol/L Normal 3.5-5.1 [facility] Comment on above: Performed By: #### L 100.0100, L500.2500 #### [facility] [address] [place], [address] Sodium [Moles/Vol] 134 mmol/L Low 136-145 [facility] Comment on above: Performed By: #### L 100.0100, L500.2500 #### [facility] [address] [place], [address] Urea nitrogen [Mass/Vol] 40 mg/dL High 05-13 [facility] Comment on above: Performed By: #### L 100.0100, L500.2500 #### [facility] [address] [place], [address] Discharge Instructionon 06-27 Discharge Instruction [facility] Medical Records Department [address] [place] [address] Instructions for Home/Discharge Instructions 07/13/24 1038 MR#: [id number] Acct: [id number] Name: LORI LYNCH Rep #: [id number] : 1945 78 From: Apple Chavez MD [place]CP: [place] [facility] Status:ADM IN Discharge Instructions Diet Discharge [...] Attending Provider: Apple Chavez Primary Care Provider: [facility] Consulting Providers: Chucky Mckoy; Olman Mcclellan; William [...] - Active Staff] - Within 2 Weeks [facility] [Primary Care Provider] - Within 1 Week Disposition Disposition (needs filled in before D/C Order can be placed): Home, Self Care 07/13/24 1040 Apple Chavez MD CC: Dr. William Burciaga DO; Dr. Chucky Mckoy MD; Dr. Olman Mcclellan MD; [facility] Signed Normal [facility] Basic Metabolic Profile (BMP )on 07-12-2024 BUN/CRE 20.1 RATIO High 10-20 [facility] Comment on above: Performed By: #### L 100.0100, L500.2500 #### [facility] [address] [place], [address] CA,Total 8.6 mg/dL Normal 8.5-10.1 [facility] Comment on above: Performed By: #### L 100.0100, L500.2500 #### [facility] [address] [place], [address] Chloride [Moles/Vol] 108 mmol/L High 98-107 [facility] Comment on above: Performed By: #### L 100.0100, L500.2500 #### [facility] [address] [place], [address] CO2 [Moles/Vol] 20.0 mmol/L Low 21.0-32.0 [facility] Comment on above: Performed By: #### L 100.0100, L500.2500 #### [facility] [address] [place], [address] Creatinine [Mass/Vol] 2.04 mg/dL High 0.70-1.30 [facility] Comment on above: Result Comment: The validity of the calculated GFR GFRAA in patients over 70 years has not been determined. Clinical correlation is essential. Performed By: #### L 100.0100, L500.2500 #### [facility] [address] [place], [address] ECRCL 34.04 ml/min Normal [facility] Comment on above: Performed By: #### L 100.0100, L500.2500 #### [facility] [address] [place], [address] EST GFR - AA 41 mL/min Low >60 [facility] Comment on above: Result Comment: Afri can Thai GFR Calc Performed By: #### L 100.0100, L500.2500 #### [facility] [address] [place], [address] GAP 6 Normal 5-15 [facility] Comment on above: Performed By: #### L 100.0100, L500.2500 #### [facility] [address] [place], [address] GFR/1.73 sq M.predicted among non-blacks MDRD (S/P/Bld) [Vol rate/Area] 34 mL/min/{1.73_m2} Low >60 [facility] Comment on above: Result Comment: Non- GFR Calc Performed By: #### L 100.0100, L500.2500 #### [facility] [address] [place], [address] Glucose [Mass/Vol] 225 mg/dL High 74-106 [facility] Comment on above: Result Comment: Gluc ose result greater than or equal to 200 mg/dL suggests DIABETES MELLITUS per A.D.A. criteria. Performed By: #### L 100.0100, L500.2500 #### [facility] [address] [place], [address] Potassium [Moles/Vol] 4.1 mmol/L Normal 3.5-5.1 [facility] Comment on above: Performed By: #### L 100.0100, L500.2500 #### [facility] [address] [place], [address] Sodium [Moles/Vol] 134 mmol/L Low 136-145 [facility] Comment on above: Performed By: #### L 100.0100, L500.2500 #### [facility] [address] [place], [address] Urea nitrogen [Mass/Vol] 41 mg/dL High 7-18 [facility] Comment on above: Performed By: #### L 100.0100, L500.2500 #### [facility] [address] [place], [address] Bedside Glucoseon 07-12-2024 FINGERSTICK GLU 325 mg/dL High 74-106 [facility] Comment on above: Result Comment: JAYLENE GEMENT OF PATIENT CARE PER NURSING PROTOCOL Performed By: #### L 400.0001 #### [facility] [address] [place], [address] FINGERSTICK GLU 208 mg/dL High 74-106 [facility] Comment on above: Result Comment: JAYLENE GEMENT OF PATIENT CARE PER NURSING PROTOCOL Performed By: #### L 100.0100, L500.2500 #### [facility] [address] [place], [address] CBC W/Diff, Automatedon - PATH REV Reviewed Normal [facility] Comment on above: Result Comment: Neut rophilic leukocytosis. Clinical correlation necessary. Trent Corea M.D. 07/12/24 AMENDED REPORT 07/12/24 0930 PATH REV previously reported as: Lois barragan Performed By: #### L 400.0001 #### [facility] [address] [place], [address] PATH REV Reviewed Normal [facility] Comment on above: Result Comment: Neut rophilic leukocytosis. Clinical correlation necessary. Trent Corea M.D. 07/12/24 AMENDED REPORT 07/12/24 0926 PATH REV previously reported as: February foll Performed By: #### L 100.0100, L500.2500 #### [facility] [address] [place], [address] PATH REV Reviewed Normal [facility] Comment on above: Result Comment: Neut rophilic leukocytosis. Clinical correlation necessary. Trent Corea M.D. 07/12/24 AMENDED REPORT 07/12/24 0925 PATH REV previously reported as: February foll Performed By: #### L 500.2500, L300.3900, L300.4310, L500.3400, L501.4020, L100.0100 #### [facility] [address] [place], [address] PATH REV Reviewed Normal [facility] Comment on above: Result Comment: Leuk ocytosis. Normocytic anemia. Clinical correlation necessary. Trent Corea M.D. 07/12/24 AMENDED REPORT 07/12/24 0913 PATH REV previously reported as: February foll Performed By: #### L 100.0100, L500.2500 #### [facility] [address] [place], [address] Consultation - Urologyon Consultation - Urology [facility] Medical Records Department [address] [place] [address] Consultation - Urology 07/12/24 0737 MR#: [id number] Acct: [id number] Name: LORI LYNCH Rep #: [id number] : 1945 78 From: Chucky Mckoy MD PCP: [facility] Status:ADM IN Location: [facility] [id number] HPI Consult Data Date of Consult: 07/12/24 [...] have him go home with a catheter. [facility] Medical History Diabetes High cholesterol [...] (Auto) 68.1, Lymph % (Auto) 9.5 L, [place] % (Auto) 18.1 H, Eos % (Auto) [...] 07/12/24 0738 Cosigner Signature (if applicable): CC: [facility] Signed Normal [facility] Basic Metabolic Profile (BMP )on 07-11-2024 BUN/CRE 19.6 RATIO Normal 08-15 [facility] Comment on above: Performed By: #### L 100.0100, L500.2500 #### [facility] [address] [place], [address] CA,Total 8.1 mg/dL Low 8.5-10.1 [facility] Comment on above: Performed By: #### L 100.0100, L500.2500 #### [facility] [address] [place], [address] Chloride [Moles/Vol] 112 mmol/L High 98-107 [facility] Comment on above: Performed By: #### L 100.0100, L500.2500 #### [facility] [address] [place], [address] CO2 [Moles/Vol] 20.0 mmol/L Low 21.0-32.0 [facility] Comment on above: Performed By: #### L 100.0100, L500.2500 #### [facility] [address] [place], [address] Creatinine [Mass/Vol] 2.04 mg/dL High 0.70-1.30 [facility] Comment on above: Result Comment: The validity of the calculated GFR GFRAA in patients over 70 years has not been determined. Clinical correlation is essential. Performed By: #### L 100.0100, L500.2500 #### [facility] [address] [place], [address] ECRCL 34.04 ml/min Normal [facility] Comment on above: Performed By: #### L 100.0100, L500.2500 #### [facility] [address] [place], [address] EST GFR - AA 41 mL/min Low >60 [facility] Comment on above: Result Comment: Afri can Thai GFR Calc Performed By: #### L 100.0100, L500.2500 #### [facility] [address] [place], [address] GAP 6 Normal 5-15 [facility] Comment on above: Performed By: #### L 100.0100, L500.2500 #### [facility] [address] [place], [address] GFR/1.73 sq M.predicted among non-blacks MDRD (S/P/Bld) [Vol rate/Area] 34 mL/min/{1.73_m2} Low >60 [facility] Comment on above: Result Comment: Non- GFR Calc Performed By: #### L 100.0100, L500.2500 #### [facility] [address] [place], [address] Glucose [Mass/Vol] 173 mg/dL High 74-106 [facility] Comment on above: Result Comment: Fast ing Glucose result greater than or equal to 126 mg/dL suggests DIABETES MELLITUS per A.D.A. criteria. Performed By: #### L 100.0100, L500.2500 #### [facility] [address] [place], [address] Potassium [Moles/Vol] 4.2 mmol/L Normal 3.5-5.1 [facility] Comment on above: Performed By: #### L 100.0100, L500.2500 #### [facility] [address] [place], [address] Sodium [Moles/Vol] 138 mmol/L Normal 136-145 [facility] Comment on above: Performed By: #### L 100.0100, L500.2500 #### [facility] [address] [place], [address] Urea nitrogen [Mass/Vol] 40 mg/dL High 7-18 [facility] Comment on above: Performed By: #### L 100.0100, L500.2500 #### [facility] [address] [place], [address] Bedside Glucoseon 09-15-2024 FINGERSTICK GLU 256 mg/dL High 74-106 [facility] Comment on above: Result Comment: JAYLENE GEMENT OF PATIENT CARE PER NURSING PROTOCOL Performed By: #### L 400.0001 #### [facility] [address] [place], [address] FINGERSTICK GLU 162 mg/dL High 74-106 [facility] Comment on above: Result Comment: JAYLENE GEMENT OF PATIENT CARE PER NURSING PROTOCOL Performed By: #### L 400.0001 #### [facility] [address] [place], [address] Consultation - Urologyon Consultation - Urology [facility] Medical Records Department [address] [place] [address] Consultation - Urology 07/11/24 [facility] MR#: [id number] Acct: [id number] Name: LORI LYNCH Rep #: [id number] : 1945 78 From: Chucky Mckoy MD PCP: [facility] Status:ADM IN Location: [facility] [place] [id number] HPI Consult Data Date of Consult: 07/11/24 [...] trial will continue with antibiotics await cultures. [facility] Medical History Diabetes High cholesterol [...] 77.2 H, Lymph % (Auto) 4.9 L, [place] % (Auto) 14.4 H, Eos % (Auto) [...] 07/11/24 1038 Cosigner Signature (if applicable): CC: [facility] Signed Normal [facility] Basic Metabolic Profile (BMP )on 07-10-2024 BUN/CRE 17.3 RATIO Normal 10-20 [facility] Comment on above: Performed By: #### L 100.0100, L500.2500 #### [facility] [address] [place], [address] CA,Total 8.5 mg/dL Normal 8.5-10.1 [facility] Comment on above: Performed By: #### L 100.0100, L500.2500 #### [facility] [address] [place], [address] Chloride [Moles/Vol] 110 mmol/L High 98-107 [facility] Comment on above: Performed By: #### L 100.0100, L500.2500 #### [facility] [address] [place], [address] CO2 [Moles/Vol] 19.0 mmol/L Low 21.0-32.0 [facility] Comment on above: Performed By: #### L 100.0100, L500.2500 #### [facility] [address] [place], [address] Creatinine [Mass/Vol] 2.37 mg/dL High 0.70-1.30 [facility] Comment on above: Result Comment: The validity of the calculated GFR GFRAA in patients over 70 years has not been determined. Clinical correlation is essential. Performed By: #### L 100.0100, L500.2500 #### [facility] [address] [place], [address] ECRCL 29.79 ml/min Normal [facility] Comment on above: Performed By: #### L 100.0100, L500.2500 #### [facility] [address] [place], [address] EST GFR - AA 34 mL/min Low >60 [facility] Comment on above: Result Comment: Afri can Thai GFR Calc Performed By: #### L 100.0100, L500.2500 #### [facility] [address] [place], [address] GAP 8 Normal 5-15 [facility] Comment on above: Performed By: #### L 100.0100, L500.2500 #### [facility] [address] [place], [address] GFR/1.73 sq M.predicted among non-blacks MDRD (S/P/Bld) [Vol rate/Area] 28 mL/min/{1.73_m2} Low >60 [facility] Comment on above: Result Comment: Non- GFR Calc Performed By: #### L 100.0100, L500.2500 #### [facility] [address] [place], [address] Glucose [Mass/Vol] 212 mg/dL High 74-106 [facility] Comment on above: Result Comment: Gluc ose result greater than or equal to 200 mg/dL suggests DIABETES MELLITUS per A.D.A. criteria. Performed By: #### L 100.0100, L500.2500 #### [facility] [address] [place], [address] Potassium [Moles/Vol] 4.4 mmol/L Normal 3.5-5.1 [facility] Comment on above: Performed By: #### L 100.0100, L500.2500 #### [facility] [address] [place], [address] Sodium [Moles/Vol] 137 mmol/L Normal 136-145 [facility] Comment on above: Performed By: #### L 100.0100, L500.2500 #### [facility] [address] [place], [address] Urea nitrogen [Mass/Vol] 41 mg/dL High 7-18 [facility] Comment on above: Performed By: #### L 100.0100, L500.2500 #### [facility] [address] [place], [address] Bedside Glucoseon 07-10-2024 FINGERSTICK GLU 191 mg/dL High 74-106 [facility] Comment on above: Result Comment: JAYLENE NEGRO OF PATIENT CARE PER NURSING PROTOCOL Performed By: #### L 100.0100, L500.2500 #### [facility] [address] [place], [address] Consultation - Urologyon Consultation - Urology [facility] Medical Records Department [address] [place] [address] Consultation - Urology 07/10/24 1022 MR#: [id number] Acct: [id number] Name: LORI LYNCH Rep #: [id number] : 1945 78 From: Chcuky Mckoy MD PCP: [facility] Status:ADM IN Location: [facility] [id number] HPI Consult Data Date of Consult: 07/10/24 [...] in his prostate. This was done in [place]. I attempted to place the catheter bedside [...] this procedure and then he was agreeable. [facility] Medical History Diabetes High cholesterol [...] 77.2 H, Lymph % (Auto) 5.9 L, [place] % (Auto) 14.6 H, Eos % (Auto) [...] Clarity Turbid, Urine pH 6.5, Ur Specific [place] 1.010, U rine Protein 100 H, Urine [...] 81.1 H, Lymph % (Auto) 4.[address] L, [place] % (Auto) 13.2 H, Eos % (Auto) [...] carcinoma, pr (more content not included)... Normal [facility] MR/POSTOP.ANEon 07-10-2024 MR/POSTOP.[facility] Medical Records Department [address] [place] [address] Anesthesia Postop Eval I 07/10/24 1140 MR#: [id number] Acct: [id number] Name: LORI LYNCH Rep #: [id number] : 1945 78 From: William Lawson MD [facility]CP: [facility] Status:ADM IN Y Race: C Location: [facility] [id number] Anesthesia: Postop Eval I Current Vital Signs [...] document: Postop Eval 1 completed: Yes 07/13/24 0756 Date William Lawson MD Cosigner Signature: CC: Signed Normal [facility] MR/[id number] 07-10-2024 MR/POST[address] Medical Records Department [address] [place] [address] Anesthesia Postop Eval II 07/10/24 1243 MR#: [id number] Acct: [id number] Name: LORI LYNCH Rep #: [id number] : 1945 78 From: Angelica Giles PCP: [facility] Status:ADM IN Y Race: C Location: [place] [id number] Anesthesia Postop Eval I Sum Anesthesia Postop Eval I Summary Anesthesia Postop Eval I Summary: Anesthesia Postop Eval I: Assessment Summary Airway patent Spontaneous unlabored respirations Mental status Awake,Calm 07/10/24 12:41 PHOTOGRAPHY AND [employer]INTS CURATOR.SHOL nausea No 07/10/24 12:41 PHOTOGRAPHY AND PRINTS CURATOR.SHOL Vomiting No 07/10/24 12:41 PHOTOGRAPHY AND PRINTS CURATOR.OSCARL Anesthesia Postop Eval I: Fluid Summary Crystalloid volume administer (ml) Colloids volume administered ( ml) Blood Product volume administered (ml) Total IV fluid infused Anesthesia Postop Eval I: Summary Notes Anesthesia Complication Anesthesia Complication Comment: Post-operative progress note Anesthesia: Postop Eval II Evaluation Mental status: Awake and Calm Pain Level: 0 nausea: No Vomiting: No 07/10/24 1243 Date Angelica Malhotrawilliam De Souzaignchristina Signature: CC: Signed [facility] MR/POST[address] Medical Records Department [address] [place] [address] Anesthesia Postop Eval II 07/10/24 1241 MR#: [id number] Acct: [id number] Name: LORI LYNCH Rep #: [id number] : 1945 78 From: Angelica Giles PCP: [facility] Status:ADM IN Y Race: C Location: [place] [address] Anesthesia Postop Eval I Sum Anesthesia Postop [...] Giles Cosigner Signature: Date CC: Signed Normal [facility] Operative Reporton 4 Operative Report [facility] Medical Records Department [address] [place] [address] Operative Report 07/10/24 1223 MR#: [id number] Acct: [id number] Name: LORI LYNCH Rep #: [id number] : 1945 78 From: Chucky Mckoy MD PCP: [facility] Status:ADM IN Location: [place] [address] Report of Operation Date of Procedure: 07/10/24 [...] when inside the bladder with a 21 Ukrainian rigid cystourethroscope the entire length of the [...] and over the wire went with a [place] tip catheter and put a catheter into [...] of Anesthesia: IV Sedation Drains: 18 fr [place] tip [place] Admit VTE Documentation VTE Present on Admission: No VTE Mechan Device Prophylaxis: SCD's VTE Pharm Prophylaxis ordered?: No 07/10/24 1225 Cosigner Signature (if applicable): CC: Dr. Chucky Mckoy MD; Dr. Olman Mcclellan MD; [facility] Signed Normal [facility] Urine Cultureon 07-10-2024 URC Culture exhibits no growth. Normal [facility] Comment on above: Performed By: #### M 100.2200 ####[facility] [address] [place], [address] 12 Lead EKGon 07-09-2024 12 Lead EKG [facility] Cardiovascular Services [address] [place] [address] 12 Lead EKG 07/09/24 1243 MR#: [id number] Acct: [id number] Name: LORI LYNCH Rep #: [id number] : 1945 78 From: Wolfgang Hooker MD Attending Dr: Dr. Apple Chavez MD Status: AD M IN Ordering Dr: Omar Elliott DO Date: 07/09/24 Location: [facility] Sex: M C Admitted: 07/09/24 Test Reason [...] QRS Borderline ECG Confirmed by Wolfgang Hooker ([id number]), editor index ELEAZAR CHILDERS ([id number]) on 07/12/2024 11:16:41 AM Referred By: Confirmed By:Wolfgang Hooker 07/12/24 111 Date Wolfgang Hooker MD CC: Dr. Apple Chavez MD; Dr. Omar Elliott DO; [facility] Signed Normal [facility] Abdomen/Pelvis without Conto n 07-09-2024 Abdomen/Pelvis without Cont [facility] Imaging Services [address] [place] [address] Abdomen/Pelvis without Cont MR#: [id number] Acct: [id number] Name: LORI LYNCH Rep #: [id number] : 1945 M 78 From: Nichole rosen MD PCP: [facility] Status: ADM IN Study: Abdomen/Pelvis without Cont Date of Exam: 06/27 01/17 Exam# [id number] Ordering Dr: Olman Mcclellan MD [id number] EXAM: CT ABDOMEN AND PELVIS WITHOUT INTRAVENOUS [...] lesions. These appear moderately enlarged compared to 202. STOMACH AND BOWEL: Diverticulosis. No acute diverticulitis. [...] are favored over solid lesions. Electronically Signed: Nichoel Guzman MD at 18:20 EDT Reading Location ID and State: [id number] / Tel , Service support , CC: Dr. Olman Mcclellan MD; [facility] Special Librarian: Signed Normal [facility] Basic Metabolic Profile (BMP )on 07-09-2024 BUN/CRE 15.8 RATIO Normal -20 [facility] Comment on above: Order Comment: 'TROP ' Serial specimen #1, #2 or #3: 1 Performed By: #### L 500.2500, L300.3900, L300.4310, L500.3400, L501.4020, L100.0100 ####[facility] [address] [place], [address] CA,Total 9.3 mg/dL Normal 8.5-10.1 [facility] Comment on above: Order Comment: 'TROP ' Serial specimen #1, #2 or #3: 1 Performed By: #### L 500.2500, L300.3900, L300.4310, L500.3400, L501.4020, L100.0100 ####[facility] [address] [place], [address] Chloride [Moles/Vol] 108 mmol/L High 98-107 [facility] Comment on above: Order Comment: 'TROP ' Serial specimen #1, #2 or #3: 1 Performed By: #### L 500.2500, L300.3900, L300.4310, L500.3400, L501.4020, L100.0100 ####[facility] [address] [place], [address] CO2 [Moles/Vol] 19.0 mmol/L Low 21.0-32.0 [facility] Comment on above: Order Comment: 'TROP ' Serial specimen #1, #2 or #3: 1 Performed By: #### L 500.2500, L300.3900, L300.4310, L500.3400, L501.4020, L100.0100 ####[facility] [address] [place], [address] Creatinine [Mass/Vol] 2.73 mg/dL High 0.70-1.30 [facility] Comment on above: Order Comment: 'TROP ' Serial specimen #1, #2 or #3: 1 Result Comment: The validity of the calculated GFR GFRAA in patients over 70 years has not been determined. Clinical correlation is essential. Performed By: #### L 500.2500, L300.3900, L300.4310, L500.3400, L501.4020, L100.0100 ####[facility] [address] [place], [address] EST GFR - AA 29 mL/min Low >60 [facility] Comment on above: Order Comment: 'TROP ' Serial specimen #1, #2 or #3: 1 Result Comment: Afri can Thai GFR Calc Performed By: #### L 500.2500, L300.3900, L300.4310, L500.3400, L501.4020, L100.0100 ####[facility] [address] [place], [address] GAP 11 Normal 5-15 [facility] Comment on above: Order Comment: 'TROP ' Serial specimen #1, #2 or #3: 1 Performed By: #### L 500.2500, L300.3900, L300.4310, L500.3400, L501.4020, L100.0100 ####[facility] [address] [place], [address] GFR/1.73 sq M.predicted among non-blacks MDRD (S/P/Bld) [Vol rate/Area] 24 mL/min/{1.73_m2} Low >60 [facility] Comment on above: Order Comment: 'TROP ' Serial specimen #1, #2 or #3: 1 Result Comment: Non- GFR Calc Performed By: #### L 500.2500, L300.3900, L300.4310, L500.3400, L501.4020, L100.0100 ####[facility] [address] [place], [address] Glucose [Mass/Vol] 224 mg/dL High 74-106 [facility] Comment on above: Order Comment: 'TROP ' Serial specimen #1, #2 or #3: 1 Result Comment: Gluc ose result greater than or equal to 200 mg/dL suggests DIABETES MELLITUS per A.D.A. criteria. Performed By: #### L 500.2500, L300.3900, L300.4310, L500.3400, L501.4020, L100.0100 ####[facility] [address] [place], [address] Potassium [Moles/Vol] 4.5 mmol/L Normal 3.5-5.1 [facility] Comment on above: Order Comment: 'TROP ' Serial specimen #1, #2 or #3: 1 Performed By: #### L 500.2500, L300.3900, L300.4310, L500.3400, L501.4020, L100.0100 ####[facility] [address] [place], [address] Sodium [Moles/Vol] 138 mmol/L Normal 136-145 [facility] Comment on above: Order Comment: 'TROP ' Serial specimen #1, #2 or #3: 1 Performed By: #### L 500.2500, L300.3900, L300.4310, L500.3400, L501.4020, L100.0100 ####[facility] [address] [place], [address] Urea nitrogen [Mass/Vol] 43 mg/dL High 7-18 [facility] Comment on above: Order Comment: 'TROP ' Serial specimen #1, #2 or #3: 1 Performed By: #### L 500.2500, L300.3900, L300.4310, L500.3400, L501.4020, L100.0100 ####[facility] [address] [place], [address] CTA Head AND Neck W/ Contras ton 07-09-2024 CTA Head AND Neck W/ Contrast [facility] Imaging Services [address] [place], [place] [address] CTA Head AND Neck W/ Contrast MR#: [id number] Acct: [id number] Name: LORI LYNCH Rep #: [id number] : 1945 78 From: Woo galicia MD PCP: [facility] Status: REG ER Study: CTA Head AND Neck W/ Contrast Date of Exam: Exam# [id number] Ordering Dr: Omar Elliott DO [id number] STUDY: CT BRAIN WITHOUT CONTRAST REASON FOR [...] There is no demonstrated aneurysm of the [place] of [place]. no demonstrated thrombus or occlusion [...] plaque format (more content not included)... Normal [facility] Chest 1 Viewon 07-09-2024 Chest 1 View [facility] Imaging Services [address] [place] [address] Chest 1 View MR#: [id number] Acct: [id number] Name: LORI LYNCH Rep #: [id number] : 1945 M 78 From: Patrick Herrera MD PCP: [facility] Status: REG ER Study: Chest 1 View Date of Exam: 07/09/24 Exam# [id number] Ordering Dr: Omar Elliott DO [id number] STUDY: X-RAY CHEST REASON FOR EXAM: Male, [...] 14:24 EDT Reading Location ID and State: [facility] / [place] , Service support , CC: Dr. Omar Elliott DO; [facility] Special Librarian: Signed Normal [facility] Emergency Department Summary on 07-09-2024 Emergency Department Summary [facility] Medical Records Department [address] [place] [address] Emergency Department Summary 07/09/24 MR#: [id number] Acct: [id number] Name: LORI LYNCH Rep #: [id number] : 1945 78 From: Omar Elliott DO PCP: [facility] Status:ADM IN Location: [facility] [id number] Greg Ruiz MD on [...] note, the patient has a urologist in [place] with the [place], he states her name is Dr. Alvarez. He [place]. The patient prefers to stay here and not go to the [place] or go to [place] at this time. Hospitalist put admission orders and, at this time he does not require the ICU based on his clinical status and hemodynamics, so I am okay with him continuing to go upstairs to medical floor/PCU. 07/09/242111 Cosigner Signature (if applicable): cc: [facility] * Signed HPI History of Present Illness Chief Complaint: Fatigue Narrative Narrative: Patient is a 78-year-old male with past medical hypertension, hypercholesteremia, prostate enlargement, lung cancer who presented to [facility] with a chief complaint [...] brought him here for the evaluation management [facility] Medical History Diabetes High cholesterol HTN [...] Abdomen: Sof (more content not included)... Normal [facility] H AND P Exam - Hospitaliston 07-09-2024 H&P Exam - Hospitalist [facility] Medical Records Department [address] [place] [address] H P Exam - Hospitalist 07/09/24 1815 MR#: [id number] Acct: [id number] Name: LORI LYNCH Rep #: [id number] : 1945 78 From: Olman Mcclellan MD [place]CP: [place] [facility] Status:ADM IN Location: [place] [id number] HPI - General General Date of Admission: [...] to warm up over the last week. [facility] Medical History Diabetes High cholesterol [...] 5/5 streng (more content not included)... Normal [facility] Kidney and Bladderon 024 Kidney and Bladder [facility] Imaging Services [address] [place] [address] Kidney and Bladder MR#: [id number] Acct: [id number] Name: LORI LYNCH Rep #: [id number] : 1945 M 78 From: Lex Cottrell MD [facility] Status: ADM IN Study: Kidney and Bladder Date of Exam: 07/09/24 Exam# [id number] Ordering Dr: Omar Elliott DO [id number] STUDY: RENAL ULTRASOUND - COMPLETE REASON FOR [...] EDT , CC: Dr. Omar Elliott, DO; [facility] Special Librarian: Signed Normal [facility] L501.4020on 07-09-2024 TROPONIN-I HS 18 pg/mL Normal 3.0-78.0 [facility] Comment on above: Order Comment: 'TROP ' Serial specimen #1, #2 or #3: 1 Result Comment: Plea se Note: New Test Units and Gender Specific Reference Ranges. For more information see Policy Stat Procedure [place] High Sensitivity Troponin (TNIH) and attachments. Performed By: #### L 500.2500, L300.3900, L300.4310, L500.3400, L501.4020, L100.0100 ####[facility] [address] [place], [address] Lactic Acidon 07-09-2024 Lactate [Moles/Vol] 1.1 mmol/L Normal 0.4-1.9 [facility] Comment on above: Performed By: #### L 100.0100, L500.2500 #### [facility] [address] [place], [address] Lactate [Moles/Vol] 2.1 mmol/L Invalid Interpretation Code 0.4-1.9 [facility] Comment on above: Order Comment: Y Result Comment: Crit ical Result(s) Called at: 14:37:22 07/09/2024 by: Yari Delgadillo to Dasia Casillas. Results read back by same. Performed By: #### L 503.6005 #### [facility] [address] [place], [address] Liver Profileon 07-09-2024 Albumin [Mass/Vol] 2.8 g/dL Low 3.2-5.0 [facility] Comment on above: Order Comment: 'TROP ' Serial specimen #1, #2 or #3: 1 Performed By: #### L 500.2500, L300.3900, L300.4310, L500.3400, L501.4020, L100.0100 ####[facility] [address] [place], [address] ALK P 116 U/L Normal 45-117 [facility] Comment on above: Order Comment: 'TROP ' Serial specimen #1, #2 or #3: 1 Performed By: #### L 500.2500, L300.3900, L300.4310, L500.3400, L501.4020, L100.0100 ####[facility] [address] [place], [address] ALT [Catalytic activity/Vol] 15 U/L Low 16-61 [facility] Comment on above: Order Comment: 'TROP ' Serial specimen #1, #2 or #3: 1 Performed By: #### L 500.2500, L300.3900, L300.4310, L500.3400, L501.4020, L100.0100 ####[facility] [address] [place], [address] AST [Catalytic activity/Vol] 23 U/L Normal 15-37 [facility] Comment on above: Order Comment: 'TROP ' Serial specimen #1, #2 or #3: 1 Performed By: #### L 500.2500, L300.3900, L300.4310, L500.3400, L501.4020, L100.0100 ####[facility] [address] [place], [address] Bilirubin [Mass/Vol] 0.50 mg/dL Normal 0.20-1.00 [facility] Comment on above: Order Comment: 'TROP ' Serial specimen #1, #2 or #3: 1 Result Comment: For patients on eltrombopag therapy, use of Dimension [place] TBIL is not recommended. Performed By: #### L 500.2500, L300.3900, L300.4310, L500.3400, L501.4020, L100.0100 ####[facility] [address] [place], [address] Bilirubin.direct [Mass/Vol] 0.14 mg/dL Normal 0.00-0.30 [facility] Comment on above: Order Comment: 'TROP ' Serial specimen #1, #2 or #3: 1 Performed By: #### L 500.2500, L300.3900, L300.4310, L500.3400, L501.4020, L100.0100 ####[facility] [address] [place], [address] Globulin (S) [Mass/Vol] 4.7 g/dL High 2.2-4.2 [facility] Comment on above: Order Comment: 'TROP ' Serial specimen #1, #2 or #3: 1 Performed By: #### L 500.2500, L300.3900, L300.4310, L500.3400, L501.4020, L100.0100 ####[facility] [address] [place], [address] T PROT 7.5 g/dL Normal 6.4-8.2 [facility] Comment on above: Order Comment: 'TROP ' Serial specimen #1, #2 or #3: 1 Performed By: #### L 500.2500, L300.3900, L300.4310, L500.3400, L501.4020, L100.0100 ####[facility] [address] [place], [address] M100.678on 07-09-2024 M100.678 Pending SARS-CoV-2 (COVID 19) Negative INFLUENZA A Negative INFLUENZA B Negative RSV PCR Negative Normal [facility] Comment on above: Performed By: #### M 100.678 ####[facility] [address] [place], [address] Partial Thromboplast Timeon 07-09-2024 aPTT Coag (Bld) [Time] 27.5 s Normal 24.1-36.2 [facility] Comment on above: Performed By: #### L 500.2500, L300.3900, L300.4310, L500.3400, L501.4020, L100.0100 ####[facility] [address] [place], [address] Prothrombin Time w/INRon INR Coag (PPP) [Relative time] 1.2 {INR} Normal [facility] Comment on above: Performed By: #### L 500.2500, L300.3900, L300.4310, L500.3400, L501.4020, L100.0100 ####[facility] [address] [place], [address] PT Coag (PPP) [Time] 15.6 s High 11.7-14.9 [facility] Comment on above: Performed By: #### L 500.2500, L300.3900, L300.4310, L500.3400, L501.4020, L100.0100 ####[facility] [address] [place], [address] Urinalysis, Completeon 07-09 RBC 50-100 SEEN Normal 0-5 [facility] Comment on above: Order Comment: COLOR OF URINE MAY AFFECT DIPSTICK RESULTS.CLEAN CATCH Performed By: #### L 100.0100, L500.2500 #### [facility] [address] [place], [address] WBC 25-50 SEEN Normal 0-5 [facility] Comment on above: Order Comment: COLOR OF URINE MAY AFFECT DIPSTICK RESULTS.CLEAN CATCH Performed By: #### L 100.0100, L500.2500 #### [facility] [address] [place], [address] BACTERIA 0 SEEN Normal None Seen [facility] Comment on above: Order Comment: COLOR OF URINE MAY AFFECT DIPSTICK RESULTS.CLEAN CATCH Performed By: #### L 100.0100, L500.2500 #### [facility] [address] [place], [address] EPI,SQUAMOUS 0 SEEN Normal 0-5 [facility] Comment on above: Order Comment: COLOR OF URINE MAY AFFECT DIPSTICK RESULTS.CLEAN CATCH Performed By: #### L 100.0100, L500.2500 #### [facility] [address] [place], [address] Mucus Ql (Urine sed) 0 SEEN Normal [facility] Comment on above: Order Comment: COLOR OF URINE MAY AFFECT DIPSTICK RESULTS.CLEAN CATCH Performed By: #### L 100.0100, L500.2500 #### [facility] [address] [place], [address] 36on 12-05-2022 36 Patient called in an d states he does not feel that tolterodine has had much of an effect and wanted to see if he could increase his dosage. I advised him per Yadi's note that this medication could take 6-8 weeks to see full affect. He verbalizes understanding and states he will give it more time to work. [facility] 36on 11-07-2022 36 Spoke with patient a nd relayed Yadi's note to him verbatim. He verbalizes understanding of all information provided, but states he needs prescription sent to [place] pharmacy instead. Rx switched to [place] pharmacy per patient request. Normal [facility] 36 Rx for tolterodine (Detrol [place]) sent to [facility] in [place]. Please advise him it could take 6-8 weeks to see full effect of the medication. If the medication causes any bothersome side effects such as dry eye, dry mouth, constipation, or difficulty urinating please have him call us. Thanks. [facility] 36 Returned call to the patient and [...] is not helping. Per previous TE's the [place] will not pay for myrbetriq. Patient aware to contact PCP if current gas pain is persistent. Patient voiced understanding. [place] [id number] Name of caller: Phil Contact phone number: [phone] Relationship to Patient: patient Provider: Rabia Practice: [facility] Chief Complaint/Reason for Call: Pt stating that he has been having gas pain with flatulence. He has tried beano, gas x and nothing has worked. He wants to know if something can be called into [facility] on [address] ph [phone]. Please call to let him know something not too expensive, by the way, will be called in for him or discuss further. Best time of day caller can be reached: Patient advised that office/PCP has 24-48 business hours to return their call: [place] [id number] 11-05-2022 36 Patient informed of medication increase and needing 6 weeks follow up and PVR. Patient verbalized understanding and have no further questions or concerns at this time. [place] [id number] 11-04-2022 36 Okay increased trosp ium to 20mg BID but still needs someone to schedule an appointment in 6 weeks to assess medication effectiveness and for PVR check. Thanks [place] [id number] Called and spoke wit h patient. He states [facility] Myrbetriq. He wants to know if he can try a stronger dose of trospium instead. Please advise. [facility] 36 Rx sent to [facility] for Myrbetric 25 mg for patient to try. Please schedule an appointment in 6 weeks to assess medication effectiveness and for PVR check. Thanks [facility] 36 Patient calling in o n clinical vm stating that the trospium has been ineffective on his symptoms, patient states he's urinating every 20 minutes throughout the day and every hour at night, patient is very frustrated at the lack of symptom relief that he's experienced. He would like to try something else. Please advise, thank you. [facility] ADDENDUMNOTEon 11-04-2022 ADDENDUMNOTE Addended by: SANDI PENA on: 11/04/2022 02:42 PM Modules accepted: Orders [facility] ADDENDUMNOTE Addended by: LOREN TREADWELL on: 11/04/2022 09:08 AM Modules accepted: Orders [facility] 36on 10-25-2022 36 Lvm that script was sent into [facility] pharmacy today. Call if he has any further questions or concerns. [facility] 36 Sent. Please let pat ient know [facility] 36 Pt called in and sta stephanie, Dr Camarillo was supposed to send in Trospium to the [facility] last Friday, but the [place] says they haven't received anything yet. Someone needs to get their act together! I need this medicine! You need to let me know what's going on! Upon investigation, Trospium appears to have been sent to [facility] in [place]. Pt would prefer Rx sent to [facility]. Pharmacy in chart and below. [facility] [place], [place] - [address] [address] [[id number]] Routing to Dr Camarillo and APPs to send to [facility]. Thank you. [facility] 36on 10-18-2022 36 Called and spoke wit h Patient, advised of Kari's message. He will start trospium and update in 4 weeks. [facility] Progress Noteon 10-18-2022 Progress Note Heri Camarillo [...] stated that they are currently in the [facility]. If the patient is a minor, permission [...] Past Medical History: Diagnosis Date Atrial fibrillation ([facility]/HCC) ([facility]) 2021 with pericardial effusion drainage Diabetes mellitus ([facility]) History of kidney cancer 2009 Hypertension Lung cancer ([facility]) SBRT 06/2021 (per [place] records) Pericardial effusion 03/15/2022 Drained ([place]) Sleep apnea cpap Past Surgical History: Past [...] (20 mg) by mouth daily. 10/17/22 12/16/22 Kari Raymundo APRN - ANGELIKA Vibegron (Gemtesa) 75 MG tablet Take 75 mg by mouth daily. 10/11/22 10/15/22 Kari Raymundo APRN - ANGELIKA Vibegron (Gemtesa) 75 MG tablet Take 75 mg by mouth daily. 10/15/22 10/17/22 Paco Geller APRN - GAMA Labs: No results found for: PSAFREE, PSAFREEPCT [...] mirebegron. Cx: <10K (more content not included)... [address] 10-17-2022 36 Please notify the patient Gemtesa and Myrbetriq not covered. I recommend he start trospium 20 mg daily, if medication improved symptoms some will increase to twice daily after 4 weeks. [place] [id number] Spoke with [facility] he o initiate prior authorization, they sate that both Gemtesa and Myrbetriq are excluded from the patients prescription drug benefit. Therefore, they will not allow for authorization to be submitted. [address] 10-15-2022 36 Notified patient deirdre t medication was sent to [place]. Pt expressed thanks for sending it there. Advised pt to call office if any questions or concerns. [place] [id number] Rx sent to new pharmacy. [place] [id number] Pt called in [facility] stating that script sent to [facility] pharmacy Vibegron 75 mg PO Daily is $480 and too expensive. Pt would like script to be changed to [place] in [place] so that he only has to pay the co-pay. Please advise. Thank you. [place] [id number] Patient informed of message below. [place] [id number] ----- Message from TALITA Johnson CNP sent at 10/14/2022 4:45 PM EST ----- Please inform patient that urine culture was negative for infection. [place] [id number] ----- Message from TALITA Johnson CNP sent at 10/14/2022 4:45 PM EST ----- Please inform patient that urine culture was negative for infection. [address] 10-14-2022 36 Gemtesa 75 mg is prescribed, please complete PA for this drug. Thanks! [address] 10-11-2022 36 Both medications tasha l have the same copay for the patient through his insurance. However, both medications require a PA. Please clarify which medication is preferred for the patient and we will submit authorization. Thank you! [place] [id number] I sent in alternativ e medication. Would Gemtesa be cheaper for the patient rather than Myrbetriq? [facility] 36on 10-10-2022 36 Please advise on alternative medication for patient [place] [id number] Name of caller: J Luis rosen Contact phone number: [phone] Relationship to Patient: patient Provider: NP. Paco [...] business hours to return their call: Yes [facility] 36 Returned call to pt. Made appt for pt to follow up with [facility] this afternoon. Voiced understanding. No other questions at this time. [place] [id number] S: Patient spoke [facility] nurse regarding frequency B: Onset of symptoms/concern [...] than usual (i.e., frequency) Protocols used: Urinary [id number] [facility] Office Visiton 10-10-2022 Follow-up visit [id number] Tushar Lynch 1945 M Date Provider Department Center 10/10/2022 [id number] GELLER [facility] URO None No family history on file Level of Service:70393 MS OFFICE/OUTPATIENT ESTABLISHED MOD MDM 30-39 MIN Reason for Visit and Comments: Urinary Frequency [706729] - Pt has been having frequency every 15-25 minutes since Aquablation surgery, pt denies burning or blood in the urine [facility] Progress Noteon 10-10-2022 Progress Note PVR- 0 mL [facility] Progress Note Paco Geller DNP, AP RN 10/10/2022 at 3:31 PM Urology Office Visit [facility] [place] [address] [facility] [address] Dept: [phone] Dept Loc: [phone] PATIENT NAME: Lori Lynch DATE OF : [...] in about 8 days (around 10/18/2022). Paco Geller DNP, RAILCAR BRAKE OPERATOR, CUNP [facility] Urology Subjective: Mr. Lynch is a 77 [...] Medical History: Diagnosis Date Atrial fibrillation (CMS/HCC) ([facility]) 2021 with pericardial effusion drainage Diabetes mellitus ([facility]) History of kidney cancer 2009 Hypertension Lung cancer (HCC) SBRT 06/2021 (per [place]) Pericardial effusion 03/15/2022 [place]rained ([place]) Sleep apnea cpap Past Surgical History: Past [...] Comment: >=300mg/d (more content not included)... [facility] 36on 09-27-2022 36 Received VM from pt [...] urinate, or intractable pain. Pt verbalized understanding. [facility] 36on 09-16-2022 36 Patient left stat ing he had aquablation on 08/22/22. He states over the weekend he noted his stream has become very weak and he is having frequency again. He feels the same as he did before procedure. Returned call to patient. He is urinating every 15 minutes and he feels that he cannot empty his bladder at all. Appointment scheduled for today at 1pm. Patient verbalizes understanding. [facility] Progress Noteon 09-16-2022 Progress Note PVR 0ml [facility] Office Visiton 08-27-2022 Follow-up visit [id number] Tushar Lynch 1945 M Date Provider Department Center 08/27/2022 [id number], URO [place] [facility] URO None No family history on file Level of Service:57556 MS OFFICE/OUTPT VISIT,PROCEDURE ONLY Reason for Visit and Comments: Benign Prostatic Hypertrophy [[id number]] - Void Trial post Aquablation Normal [facility] Creatinineon 08-23-2022 Creatinine [Mass/Vol] 0.91 mg/dL Normal 0.52-1.25 [facility] Comment on above: Performed By: #### C RTN3 #### [facility] [address] [place], [place] GFR/1.73 sq M.predicted among blacks MDRD (S/P/Bld) [Vol rate/Area] mL/min/{1.73_m2} Normal >60 [facility] Comment on above: Performed By: #### C RTN3 #### [place] [address] [place], [place] GFR/1.73 sq M.predicted among non-blacks MDRD (S/P/Bld) [Vol rate/Area] 80.4 mL/min/{1.73_m2} Normal >60 [facility] Comment on above: Result Comment: KDIG O [...] secretion. Performed By: #### C RTN3 #### [facility] [address] [place], [place] Glucose,Bedsideon 08-23-2022 Glucose [Mass/Vol] 216 mg/dL High 70-100 [facility] Comment on above: Result Comment: Test performed by glucose meter. Results may be 10%-15% lower than serum/plasma values. (CLIA ID [id number]) Performed By: #### B GLU #### [facility] [address] [place] [address] Glucose,Bedsideon 08-22-2022 Glucose [Mass/Vol] 192 mg/dL High 70-100 [facility] Comment on above: Result Comment: Test performed by glucose meter. Results may be 10%-15% lower than serum/plasma values. (CLIA ID [id number]) Performed By: #### B GLU #### [facility] [address] [place] [address] Glucose [Mass/Vol] 176 mg/dL [facility] [address] Comment on above: Result Comment: Test performed by glucose meter. Results may be 10%-15% lower than serum/plasma values. (CLIA ID [id number]) Performed By: #### B GLU #### [facility] [address] [place] [address] Glucose [Mass/Vol] 130 mg/dL [facility] [address] [facility] Comment on above: Result Comment: Test performed by glucose meter. Results may be 10%-15% lower than serum/plasma values. (CLIA ID [id number]) Performed By: #### B GLU #### [facility] [address] [place] [address] Op Noteon 08-22-2022 Op Note Operative Note PRE-OP DIAGNOSIS: BPH with obstruction. POST-OP DIAGNOSIS: Same OPERATION: Cystoscopy, Prostate Aquablation (CPT 0421T) SURGEON: Heri Camarillo M.D. , Franc Zambrano M.D. TARGETING ACQUISITION OFFICER: ANESTHESIA: General BLOOD LOSS:<20cc MEDICATIONS: Ancef 2 [...] transurethral resection of prostate, robotic suprapubic prostatectomy, cystoscopy/Aquablation. The pros & cons of each option [...] and to note prostate anatomy. The 24 Ukrainian AQUABEAM Handpiece tip was inserted into the [...] tissue/clot evacuation was performed using a 26Fr cystoscope/resectoscope until light pink. TUR of the bladder neck going from the 3:00 to 9 o'clock position was done. This was approximately 1 cm in length. This area was then cauterized, and all bleeders were controlled. Hemostasis was obtained., 24 Ukrainian Simplastic catheter was inserted, balloon inflated to 30 cc. Diego irrigated light pink. Continuous bladder irrigation was started. Ultrasound probe was then removed. Belladonna & opium suppository is not available at this time The patient was safely moved to the transportation cart, and transported to the recovery area in stable condition. Heri Camarillo M.D. 08/22/2022 Normal [facility] CULTURE URINEon 08-17-2022 CULTURE URINE CULTURE URINE --> Status: F Normal urogenital chanda present. Normal [facility] Comment on above: Performed By: #### C /UR #### [address] Hemoglobin AND Hematocriton 08-15-2022 Hematocrit (Bld) [Volume fraction] 46.1 % Normal 40.0-52.0 [facility] Comment on above: Performed By: #### H GHCT #### [place] [address] [place] Hemoglobin (Bld) [Mass/Vol] 15.1 g/dL Normal 13.0-18.0 [facility] Comment on above: Performed By: #### H GHCT #### [address] Hemoglobin and HematocritOrd ered By: Thuy Mercedes on 08-15-2022 Hematocrit (Bld) [Volume fraction] 46.1 % 40.0 - 52.0 % [facility] Hemoglobin (Bld) [Mass/Vol] 15.1 g/dL 13.0 - 18.0 g/dL [facility] Hemoglobin and Hematocriton 08-15-2022 Test Performed by [facility], [address] [place] [id number] [place] [address] LAB Absolute lymphocyte counton 03-14-2022 Lymphocytes Auto (Unsp spec) [#/Vol] 2.42 10*3/uL 0.83-4.51 [facility] Work Phone: Basophil percentageon 2021 Basophils/100 WBC (Bld) 0.8 % 0-1 [facility] Work Phone: Chloride [Moles/Vol] 102 mmol/L 98-107 [facility] Work [facility]: Eosinophils/100 WBC (Bld) 4.1 % 0-5 [facility] Work Phone: Glucose [Mass/Vol] 179 mg/dL 74-106 [facility] Work Phone: Comment on above: Fasting Glucose resu lt greater than or equal to 126 mg/dL suggests DIABETES MELLITUS per A.D.A. criteria. Neutrophils (Bld) [#/Vol] 5.7 10*3/uL 2.0-7.7 [facility] Work Phone: Neutrophils/100 WBC (Bld) 55.7 % 47-70 [facility] Work Phone: Potassium [Moles/Vol] 4.1 mmol/L 3.5-5.1 [facility] Work Phone: Sodium [Moles/Vol] 139 mmol/L 136-145 [facility] Work Phone: WBC (Bld) [#/Vol] 10.2 10*3/uL 4.4-11.0 [facility] Work Phone: [phone] Blood erythrocytes count (nu mber/volume)on 03-14-2022 RBC (Bld) [#/Vol] 5.36 10*6/uL 4.6-6.2 [facility] Work Phone: Blood hemoglobin measurement (mass/volume)on 03-14-2022 Hemoglobin (Bld) [Mass/Vol] 15.0 g/dL 13.0-16.5 [facility] Work Phone: Blood lymphocytes/100 leukoc yteson 03-14-2022 Lymphocytes/100 WBC (Bld) 23.7 % 19-41 [facility] Work Phone: Blood manual differential co mment interpretation (narrative result)on 03-14-2022 Manual differential comment Ed (Bld) [Interp] SCANNED [facility] Work Phone: Blood monocytes/100 leukocyt eson 03-14-2022 Monocytes/100 WBC (Bld) 15.2 % 0-10 [facility] Work Phone: Blood platelet mean volumeon 03-14-2022 Platelet mean volume (Bld) [Entitic vol] 10.7 fL 6.2-12.0 [facility] Work Phone: Determination of erythrocyte mean corpuscular volume (MCV)on 03-14-2022 MCV (RBC) [Entitic vol] 85.8 fL 80-94 [facility] Work Phone: Hematocrit Auto (Bld) [Volum e fraction]on 03-14-2022 Hematocrit (Bld) [Volume fraction] 46.0 % 40-54 [facility] Work Phone: Laboratory - Chemistry and C hemistry - challengeon 03-14-2022 CO2 [Moles/Vol] 30.0 mmol/L 21.0-32.0 [facility] Work Phone: Urea nitrogen/Creatinine [Mass ratio] 17.6 mg/mg 10-20 [facility] Work Phone: Laboratory - Hematology and Cell countson 03-14-2022 Erythrocyte distribution width (RBC) [Entitic vol] 52.6 fL 35.1-43.9 [facility] Work Phone: Erythrocyte distribution width (RBC) [Ratio] 16.9 % 11.6-14.6 [facility] Work Phone: Immature granulocytes/100 WBC (Bld) 0.500 % 0.0-0.9 [facility] Work Phone: Comment on above: IG% - Immature Granu locytes (promyelocytes, myelocytes and metamyelocytes) > 1% indicates that a LEFT SHIFT is Present. MCH (RBC) [Entitic mass] 28.0 pg 27.0-32.0 [facility] Work Phone: Nucleated RBC/100 WBC (Bld) [Ratio] 0 % 0-5 [facility] Work Phone: MCHC Auto (RBC) [Mass/Vol]on 03-14-2022 MCHC (RBC) [Mass/Vol] 32.6 g/dL 32-36 [facility] Work Phone: No Panel Informationon 03-14 Estimated Creatinine Clearance Calc 47.88 ml/min [facility] Work Phone: Estimated GFR (MDRD) Amer 72 mL/min >60 [facility] Work Phone: Comment on above: GFR Calc Estimated GFR (MDRD) Non-Af Amer 59 mL/min >60 [facility] Work Phone: Comment on above: Non- GFR Calc Troponin I High Sensitivity 12 pg/mL 3.0-78.0 [facility] Work Phone: Comment on above: Please Note: New Reyna t Units and Gender Specific Reference Ranges. For more information see Policy Stat Procedure [place] High Sensitivity Troponin (TNIH) and attachments. Platelets bldon 03-14-2022 Platelets (Bld) [#/Vol] 173 10*3/uL 150-450 [facility] Work Phone: Serum or plasma calcium angle urement (mass/volume)on 03-14-2022 Calcium [Mass/Vol] 9.4 mg/dL 8.5-10.1 [facility] Work Phone: Serum or plasma creatinine m easurement (mass/volume)on 03-14-2022 Creatinine [Mass/Vol] 1.25 mg/dL 0.70-1.30 [facility] Work Phone: Comment on above: The validity of the calculated GFR & GFRAA in patients over 70 years has not been determined. Clinical correlation is essential. Serum or plasma urea nitroge n measurement (mass/volume)on 03-14-2022 Urea nitrogen [Mass/Vol] 22 mg/dL 05-13 [facility] Work Phone: Thin prep Papanicolaou smear with manual screeningon 03-14-2022 Thin prep Papanicolaou smear with manual screening 04 30- [facility] Work Phone: Vital Signs Date Time Vital Sign Value Performing Clinician Faci lity 04-29-2025 16:39-0400 Body temperature 98.6 [degF] [facility] 04-29-2025 16:39-0400 Diastolic blood pressure 62 mm[Hg] [facility] 04-29-2025 16:39-0400 Heart rate 80 /min [facility] 04-29-2025 16:39-0400 Respiratory rate 14 /min [facility] 04-29-2025 16:39-0400 SaO2% (BldA) [Mass fraction] 95 % [facility] 04-29-2025 16:39-0400 Systolic blood pressure 144 mm[Hg] [facility] 04-29-2025 15:43-0400 Body height 172.72 cm [facility] 04-29-2025 15:43-0400 Body mass index (BMI) [Ratio] 32.9 kg/m2 [facility] 04-29-2025 15:43-0400 Body weight 98.2 kg [facility] 04-29-2025 14:20-0400 Body temperature 97.8 [degF] [facility] 04-29-2025 14:20-0400 Diastolic blood pressure 67 mm[Hg] [facility] 04-29-2025 14:20-0400 Heart rate 76 /min [facility] 04-29-2025 14:20-0400 Respiratory rate 15 /min [facility] 04-29-2025 14:20-0400 SaO2% (BldA) [Mass fraction] 95 % [facility] 04-29-2025 14:20-0400 Systolic blood pressure 135 mm[Hg] [facility] 04-29-2025 13:03-0400 Body height 172.72 cm [facility] 04-29-2025 13:03-0400 Body mass index (BMI) [Ratio] 32.9 kg/m2 [facility] 04-29-2025 13:03-0400 Body weight 98.23 kg [facility] 03-02-2025 11:58-0400 Body temperature 98.4 [degF] [facility] 03-02-2025 11:58-0400 Diastolic blood pressure 74 mm[Hg] [facility] 03-02-2025 11:58-0400 Heart rate 59 /min [facility] 03-02-2025 11:58-0400 Respiratory rate 18 /min [facility] 03-02-2025 11:58-0400 SaO2% (BldA) [Mass fraction] 98 % [facility] 03-02-2025 11:58-0400 Systolic blood pressure 130 mm[Hg] [facility] 03-02-2025 09:46-0400 Body height 172.72 cm [facility] 03-02-2025 09:46-0400 Body mass index (BMI) [Ratio] 33.5 kg/m2 [facility] 03-02-2025 09:46-0400 Body weight 100.24 kg [facility] 01-25-2025 17:43-0400 Body temperature 98.2 [degF] [facility] 01-25-2025 17:43-0400 Diastolic blood pressure 77 mm[Hg] [facility] 01-25-2025 17:43-0400 Heart rate 74 /min [facility] 01-25-2025 17:43-0400 Respiratory rate 19 /min [facility] 01-25-2025 17:43-0400 SaO2% (BldA) [Mass fraction] 98 % [facility] 01-25-2025 17:43-0400 Systolic blood pressure 148 mm[Hg] [facility] 01-25-2025 15:00-0400 Diastolic blood pressure 69 mm[Hg] [facility] 01-25-2025 15:00-0400 Heart rate 76 /min [facility] 01-25-2025 15:00-0400 Respiratory rate 22 /min [facility] 01-25-2025 15:00-0400 SaO2% (BldA) [Mass fraction] 95 % [facility] 01-25-2025 15:00-0400 Systolic blood pressure 130 mm[Hg] [facility] 01-25-2025 11:19-0400 Body height 172.72 cm [facility] 01-25-2025 11:19-0400 Body mass index (BMI) [Ratio] 33.7 kg/m2 [facility] 01-25-2025 11:19-0400 Body temperature 98.7 [degF] [facility] 01-25-2025 11:19-0400 Body weight 100.7 kg [facility] 01-14-2025 14:43-0400 Body temperature 97.8 [degF] [facility] 01-14-2025 14:43-0400 Diastolic blood pressure 79 mm[Hg] [facility] 01-14-2025 14:43-0400 Heart rate 83 /min [facility] 01-14-2025 14:43-0400 Respiratory rate 14 /min [facility] 01-14-2025 14:43-0400 SaO2% (BldA) [Mass fraction] 98 % [facility] 01-14-2025 14:43-0400 Systolic blood pressure 149 mm[Hg] [facility] 01-14-2025 11:38-0400 Body height 172.72 cm [facility] 01-14-2025 11:38-0400 Body mass index (BMI) [Ratio] 33.5 kg/m2 [facility] 01-14-2025 11:38-0400 Body weight 100.19 kg [facility] 11-13-2024 23:22-0500 Body temperature 98 [degF] [facility] 11-13-2024 23:22-0500 Diastolic blood pressure 77 mm[Hg] [facility] 11-13-2024 23:22-0500 Heart rate 81 /min [facility] 11-13-2024 23:22-0500 Respiratory rate 16 /min [facility] 11-13-2024 23:22-0500 SaO2% (BldA) [Mass fraction] 99 % [facility] 11-13-2024 23:22-0500 Systolic blood pressure 144 mm[Hg] [facility] 11-13-2024 22:02-0500 Body mass index (BMI) [Ratio] 33.5 kg/m2 [facility] 11-13-2024 22:02-0500 Body weight 100.24 kg [facility] 08-15-2022 15:37-0400 Body height 175.3 cm Heri Camarillo MD Work Phone: [facility] 08-15-2022 15:37-0400 Body mass index (BMI) [Ratio] 35.09 kg/m2 Heri Camarillo MD Work Phone: [facility] 08-15-2022 15:37-0400 Body temperature 97 [degF] Heri Camarillo MD Work Phone: [facility] 08-15-2022 15:37-0400 Body weight 107.78 kg Heri Camarillo MD Work Phone: [facility] 08-15-2022 15:37-0400 Diastolic blood pressure 55 mm[Hg] Heri Camarillo MD Work Phone: [facility] 08-15-2022 15:37-0400 Heart rate 65 /min Heri Camarillo MD Work Phone: [facility] 08-15-2022 15:37-0400 Respiratory rate 16 /min Heri Camarillo MD Work Phone: [facility] 08-15-2022 15:37-0400 SaO2% (BldA) [Mass fraction] 97 % Heri Camarillo MD Work Phone: [facility] 08-15-2022 15:37-0400 Systolic blood pressure 129 mm[Hg] Heri Camarillo MD Work Phone: [facility] 03-14-2022 13:32-0400 Diastolic blood pressure 81 mm[Hg] [facility] Work Phone: 03-14-2022 13:32-0400 Heart rate 64 /min [facility] Work Phone: 03-14-2022 13:32-0400 Respiratory rate 17 /min [facility] Work Phone: 03-14-2022 13:32-0400 SaO2% (BldA) [Mass fraction] 94 % [facility] Work Phone: 03-14-2022 13:32-0400 Systolic blood pressure 135 mm[Hg] [facility] Work Phone: 03-14-2022 12:25-0400 Body height 172.72 cm [facility] Work Phone: 03-14-2022 12:25-0400 Body mass index (BMI) [Ratio] 35.7 kg/m2 [facility] Work Phone: 03-14-2022 12:25-0400 Body temperature 98.1 [degF] [facility] Work Phone: 03-14-2022 12:25-0400 Body weight 106.59 kg [facility] Work Phone: Encounters Encounter Date Encounter Type Care Provider Facility Start: 04-29-2025 End: 04-29-2025 Emergency department patient visit [facility] -Emergency Department Work Phone: Start: 04-22-2025 End: 04-22-2025 Patient encounter procedure Alec Ehsan Green MD Work Phone: [facility] Comment on above: Benign prostatic hyp erplasia with urinary retention (Primary Dx); Renal cysts, acquired, bilateral Start: 04-22-2025 End: 04-22-2025 ambulatory ALEC TINAJERO Facility:[facility] Start: 04-05-2025 End: 04-05-2025 ambulatory [facility] Work Phone: Start: 04-05-2025 End: 04-05-2025 Patient encounter procedure [facility] Start: 04-05-2025 End: 04-05-2025 ambulatory 1 FRANNY Facility:[facility] Start: 03-29-2025 End: 03-29-2025 ambulatory [facility] Work Phone: Start: 03-29-2025 End: 03-29-2025 Patient encounter procedure [facility] Start: 03-24-2025 End: 03-24-2025 ambulatory [facility] Work Phone: Start: 03-24-2025 End: 03-24-2025 Patient encounter procedure Chikis Hernandez [facility] -Radiology [facility] Work Phone: Start: 03-24-2025 End: 03-24-2025 ambulatory Chikis Musat Facility:[facility] Start: 03-15-2025 End: 03-15-2025 ambulatory ALEC TINAJERO Facility:[facility] Start: 03-02-2025 End: 03-02-2025 Emergency department patient visit [facility] -Emergency Department Work Phone: Start: 01-25-2025 End: 01-25-2025 Emergency department patient visit [facility]gency [facility] Work Phone: Start: 01-21-2025 End: 01-21-2025 ambulatory [facility] Work Phone: Start: 01-21-2025 End: 01-21-2025 Patient encounter procedure PALLAVI VALDES [facility] -Nuclear Medicine, [facility] Work Phone: Start: 01-21-2025 End: 01-21-2025 ambulatory [facility] Facility[facility] Start: 01-14-2025 End: 01-14-2025 Emergency department patient visit [facility]gency [facility] Work Phone: Start: 11-13-2024 End: 11-13-2024 Emergency department patient visit Rowdy She[facility] -Emergency Department Work Phone: Start: 09-03-2024 End: 09-03-2024 Emergency department patient visit Franki Medina Facility:[facility] Start: 08-31-2024 End: 08-31-2024 ambulatory 1 FRANNY Facility:[facility] Start: 08-24-2024 End: 08-24-2024 ambulatory 1 FRANNY Facility:[facility] Start: 07-30-2024 End: 07-30-2024 ambulatory 1 FRANNY Facility:[facility] Start: 07-09-2024 ambulatory Chucky Mckoy Faci lity:[facility] Start: 07-09-2024 End: 07-13-2024 Evaluation and management of inpatient Chucky Mckoy Facility:[facility] Start: 01-20-2024 End: 01-20-2024 ambulatory [facility] Work Phone: Start: 01-20-2024 End: 01-20-2024 Patient encounter procedure [facility] Start: 12-16-2023 End: 12-16-2023 ambulatory [facility] Work Phone: Start: 12-16-2023 End: 12-16-2023 Patient encounter procedure [facility]-Cat Scan, [facility] Work Phone: Start: 06-16-2023 End: 06-16-2023 ambulatory [facility] Work Phone: Start: 06-16-2023 End: 06-16-2023 Patient encounter procedure [facility]Cat Scan, [facility] Work Phone: Start: 12-31-2022 End: 12-31-2022 ambulatory [facility] Work Phone: Start: 12-31-2022 End: 12-31-2022 Patient encounter procedure [facility]Cat [facility], [facility] Start: 11-07-2022 Telephone encounter Heri plunkett MD Work Phone: [facility] Comment on above: Gas (Pt stating that he has been having gas pain with flatulence. He has tried beano, gas x and nothing has worked. He wants to know if something can be called into [facility] pharm on [address] ph [phone]. Please call to let him know something not too expensive, by the way, will be called in for him or discuss further. /) Start: 10-25-2022 Telephone encounter Heri plunkett MD Work Phone: [facility] Comment on above: Medication Question Start: 10-18-2022 End: 10-18-2022 [facility]: 10-10-2022 End: 10-10-2022 ambulatory PACO GELLER [facility] Start: 09-16-2022 End: 09-16-2022 ambulatory [facility] Start: 08-27-2022 End: 08-27-2022 ambulatory [facility] Start: 08-22-2022 End: 08-25-2022 Evaluation and management of inpatient [facility] Start: 08-15-2022 ambulatory UNKNOWN PROVIDER [facility] Start: 08-15-2022 Encounter for other preprocedural examination [facility] Start: 08-15-2022 End: 08-15-2022 Patient encounter status Heri Camarillo MD Work Phone: [facility] Start: 08-15-2022 End: 08-15-2022 Subsequent hospital visit by physician Heri Camarillo MD Work Phone: [facility] Comment on above: Pre-op testing (Prim martha Dx) Start: 03-14-2022 End: 03-14-2022 Emergency department patient visit [facility] Start: 02-06-2022 End: 02-06-2022 Patient encounter procedure [facility] Procedures Date Procedure Procedure Detail Performing Clinician Start: 04-05-2025 PET study for locali zation of tumor [facility] Start: 03-24-2025 X-ray of chest, PA gian nd lateral views [facility] Start: 01-25-2025 CT of abdomen and pe lvis without contrast [facility] Start: 01-25-2025 Blood culture [facility] Start: 01-25-2025 Urine culture [facility] Start: 01-25-2025 Estimated creatinine clearance [facility] Start: 01-25-2025 Urnls dip stick/tabl et reagent auto microscopy [facility] Start: 01-21-2025 Renal isotope studies [facility] Start: 12-16-2023 CT of chest [...] (2 - Td or Tdap) [facility] Start: 09-30-2027 Urine microalbumin profile DTaP,Tdap,Td Vaccine (2 - Td or Tdap) [facility] Start: 05-19-2025 End: 05-19-2025 Patient encounter procedure 05/19/2025 2:00 PM EDT Office Visit [facility] [address] [place] [id number] Wolfgang Florez Jr., MD [address] [place], [place] [id number] referred by Dr. Tinajero for BPH [facility] Comment on above: referred by Dr. Javy tate for BPH Start: 04-29-2025 [facility] Start: 04-29-2025 Removal of urinary catheter [facility] Start: 04-29-2025 [facility] Start: 03-02-2025 [facility] Start: 01-25-2025 [facility] Start: 01-25-2025 Bacteria identified in Blood by Culture Blood Culture [facility] Start: 01-25-2025 Bacteria identified in Urine by Culture Urine Culture [facility] Start: 01-25-2025 [facility] Start: 01-25-2025 [facility] Start: 01-25-2025 Removal of urinary catheter [facility] Start: 01-14-2025 [facility] Start: 11-13-2024 [facility] Start: 10-27-2024 Advance Directive Discussion Advance Directive Discussion [facility] Start: 06-27-2024 Covid-19 Vaccine ( season) Covid-19 Vaccine () [facility] Start: 01-20-2024 Positron emission tomography with computed tomography [facility] Start: 12-11-2022 End: 12-11-2022 Patient encounter procedure 12/11/2022 Office Visit Urology Yadi Pemberton APRN - CNP [address] [place] [address] [facility] Start: 08-22-2022 End: 08-22-2022 Patient encounter procedure 08/22/2022 Appointment General Surgery Heri Camarillo MD [address] [place] [address] Franc Zambrano MD [address] [place] [address] [facility] General Surgery Start: 06-27-2022 Influenza vaccination Influenza Vacc ine (#1) [facility] Start: 05-27-2022 Influenza vaccination Flu vaccine (# 1) [facility] Start: 05-03-2022 COVID-19 Vaccine (5 - Booster for Pfizer series) COVID-19 Vaccine (5 - Booster for Pfizer series) [facility] Start: 09-11-2021 COVID-19 Vaccine (2 - Pfizer series) COVID-19 Vaccine (2 - Pfizer series) [facility] Start: 2019 RSV Vaccine (1 - 1-d ose 75+ series) RSV Vaccine (1 - 1-dose 75+ series) [facility] Start: 03-09-2016 Pneumococcal 65+ yea rs Vaccine (2 - PPSV23 if available, else PCV20) Pneumococcal 65+ years Vaccine (2 - PPSV23 if available, else PCV20) [facility] Start: 05-04-2015 Pneumococcal Vaccine : 50+ (2 of 2 - PPSV23) Pneumococcal Vaccine: 50+ (2 of 2 - PPSV23) [facility] Start: 07-27-2009 Medicare Annual Well ness Visit Medicare Annual Wellness Visit [facility] Start: 1994 Screening for malign ant neoplasm of lung Low dose CT lung screening [facility] Start: 1994 Zoster Vaccines (1 of 2) Zoste r Vaccines (1 of 2) [facility] Start: 1989 Diabetes Screening Diabetes Screenin g [facility] Start: 1963 DTaP/Tdap/Td Vaccine s (1 - Tdap) DTaP/Tdap/Td Vaccines (1 - Tdap) [facility] Start: 1963 Urine screening for protein Diabetes: Urine Protein Screening [facility] Start: 1962 Anxiety Screening Anxiety Screening [facility] Start: 1962 Depression Screening Depression Scre ening [facility] Start: 1962 Hepatitis C screening [facility] Start: 1956 Depression Screen Depression Screen [facility] Start: 1954 Diabetic foot examination Diabetes: Foot Exam [facility] Start: 1954 Glaucoma screening Diabetes: R etinopathy Screening [facility] Start: 1954 Preventive dental service Diabetes: Dental Exam [facility] Start: 1950 Pneumococcal Vaccine : 65+ Years (1 - PCV) Pneumococcal Vaccine: 65+ Years (1 - PCV) [facility] Start: 1944 Hemoglobin A1c measurement Diabetes: Hemoglobin A1C [facility] Start: 1944 Hepatitis B Vaccines (1 of 3 - 3-dose series) Hepatitis B Vaccines (1 of 3 - 3-dose series) [facility] Start: 1944 Lipid panel Lipid Panel [facility] End: 08-15-2022 Culture, Urine [facility] Work Phone: Comment on above: One Time for 1 Occur rences starting 08/15/2022 until 08/15/2022 Patient Education [facility] Work Phone: Patient referral [facility] Work Phone: Urine culture [facility] Immunizations Immunization Date Immunization Notes Care Provider Fa twinty 08-21-2021 Pfizer SARS-CoV-2 Vaccination Heri Camarillo MD Work Phone: [facility] Payers Date Payer Category Payer Private Health Insurance [facility] [employer] [id number] 2024 Self-pay [id number] 2024 Unknown [id number] 11 2022 Unknown 2021 Unknown [id number] 2009 Medicare 1945 Unknown [id number]. [id number] 1945 Unknown [id number] [id number]. 2.668 Medicare [id number] Unknown [id number] [id number]. 2.462 Unknown [id number] 2.16.840.1.186578.3.579. 2.462 Unknown [id number] 2.16.840.1.252592.3.579. 2.462 Unknown [id number] 2.16.840.1.949249.3.579. 2.462 Unknown [id number] 2.16.840.1.097096.3.579. 2.462 Unknown [id number] 2..840.1.499892.3.579. 2.462 Unknown [id number] 2.840.1.751105.3.579. 2.462 Unknown [id number] 2..840.1.391642.3.579. 2.462 Unknown [id number] 2.840.1.925227.3.579. 2.462 Unknown [id number] 2.840.1.576750.3.579. 2.462 Unknown [id number] 2.840.1.530942.3.579. 2.462 Unknown [id number] 2..840.1.154988.3.579. 2.462 Unknown [id number] 2.16840.1.157375.3.579. 2.462 Unknown [id number] 2.840.1.925136.3.579. 2.462 Unknown [id number] 2.840.1.646454.3.579. 2.462 Unknown [id number] 2.840.1.396829.3.579. 2.462 Unknown [id number] 2.840.1.201981.3.579. 2.462 Unknown [id number] 2.840.1.969957.3.579. 2.462 Social History Date Type Detail Facility Start: 03-14-2022 End: 03-14-2022 Tobacco smoking status NHIS Unknown if ever smoked [facility] Start: 1945 Sex Assigned At Male [facility] Start: 08-15-2022 End: 03-15-2025 Tobacco smoking status NHIS Smokes tobacco daily [facility] History of tobacco use Cigarette Smoker [facility] [employer] Work Phone: Start: 08-15-2022 End: 03-15-2025 Cigarettes smoked current (pack per day) - Reported 1.5 [employer] Work Phone: Start: 08-15-2022 End: 03-15-2025 Tobacco use and exposure Smokeless tobacco non-user [employer] Work Phone: Start: 08-15-2022 End: 10-10-2022 Alcohol intake Ex-drinker (finding) [employer] Work Phone: Start: 1945 Sex Assigned At Not on file [facility] [employer] Work Phone: Start: 08-05-2022 End: 08-15-2022 Exposure to SARS-CoV-2 (event) Not sure [employer] Phone: Start: 10-08-2022 End: 10-18-2022 Exposure to SARS-CoV-2 (event) Unable to assess [facility] [employer] Start: 01-14-2025 End: 04-29-2025 Tobacco smoking status NHIS Current Heavy tobacco smoker [facility] Start: 01-14-2025 End: 01-25-2025 Sex Male (finding) [facility] Start: 03-15-2025 Alcoholic beverage intake Lifetime non-drinker (finding) [facility] Start: 03-15-2025 Tobacco use panel [facility] National Score (1-10 0), lower number is lower risk 72 [facility] Clinical Notes 08-15-2022 to 04-29-2025 Note Date & Type Note Facility 04-29-2025 Discharge summary [facility] 04-29-2025 Discharge summary Note Date/Time April 29, 2025 4:14pm [facility] Medical Records Department [address] [place] [address] Emergency Department Summary 04/29/25 MR#: [id number] Acct: [id number] Name: LORI LYNCH Rep #:[id number] : 1945 79 From: Chikis ROBERTSON [place]CP: [facility] Status:REG ER Location: ED HPI <AILYN Daniels - Last Filed: 04/29/25 14:26> History of Present Illness Chief Complaint: Complaint Narrative Narrative: 79-year-old male has BPH and chronic indwelling Diego June 2024. He saw [facility]rologist [facility] the [facility] yesterday and had a routine catheter change. Since thenurine has been leaking from around the tube and his penis is only partially draining in the bag. He has no pain. No hematuria or clots. [facility] <AILYN Daniels - Last Filed: 04/29/25 14:26> [facility] Medical History BPH with obstruction/lower [...] tablet 5 mg PO DAILY #30 tabs 07/1301/25/25 Rx ciprofloxacin HCl 500 mg tablet 500 mg PO DAILY 7 days #7 TABLETS 01/25/25 Unknown Rx ferrous gluconate 324 mg (38 mg 324 mg PO QHS 01/25/25 01/24/25 History iron) tablet Allergy/AdvReac Type Severity Reaction Status Date / Time amoxicillin (From Augmentin) Allergy Hives Verified 04/29/25 13:04 clavulanic acid (From Allergy Hives Verified 04/29/25 13:04 Augmentin) lisinopril Allergy Other Verified 04/29/25 13:04 Family History Other Diabetes Surgical History H/O shoulder replacement Social History Smoking Status: Heavy Smoker (>10/day) ROS <AILYN Daniels - Last Filed: 04/29/25 14:26> ROS ED ROS Narrative Constitutional: Negative for fever, chills, malaise. GI: Negative for abdominal pain, nausea, vomiting. : Negative for hematuria. EXAM <AILYN Daniels - Last Filed: 04/29/25 14:26> Physical Exam Narrative Exam Narrative: CONST: Patient sitting in no acute distress. EYES: Normal inspection. NECK: Normal inspection. RESP: No respiratory distress, CTAB. CVS: Regular rate and rhythm, no murmur, no gallop. ABD: Soft and nontender, no guarding or rebound, nondistended. : Normal external genitalia. [address]. There is urine leakage in his briefs. Small amount of clear yellow urine in the leg bag. SKIN: Color normal, no rash, warm, dry, intact. EXTREMITIES: Normal appearance, no pedal edema. NEURO: Alert and answering questions appropriately. PSYCH: Normal affect. Const Vital Signs: 04/29/25 13:03 04/29/25 14:20 04/29/25 15:43 Temperature 98.9 F 97.8 F 97.5 F L Temperature Source Oral Oral Pulse Rate 95 76 92 Respiratory Rate 18 15 16 Blood Pressure 145/74 H 135/67 H 164/75 H Blood Pressure Mean 97 89 104 Pulse Ox 99 95 98 <Dr. William Seals DO - Last Filed: 04/29/25 15:56> Physical Exam Const Vital Signs: 04/29/25 13:03 04/29/25 14:20 04/29/25 15:43 Temperature 98.9 F 97.8 F 97.5 F L Temperature Source Oral Oral Pulse Rate 95 76 92 Respiratory Rate 18 15 16 Blood Pressure 145/74 H 135/67 H 164/75 H Blood Pressure Mean 97 89 104 Pulse Ox 99 95 98 [facility] <AILYN Daniels - Last Filed: 04/29/25 14:26> [facility] Narrative Medical decision making narrative: 79-year-old male with a 20 Ukrainian Diego catheter is leaking since it was changedyesterday at the urology office. It appear to be leaking from penis into his briefs. He has no pain. No abdominal tenderness or distention. The nurse checked that his wound was properly inflated. He irrigated the Diego and statesthere was 1 more clot that came out. After that and seems to be draining well and patient is comfortable going home. He will return if issues occur or follow-up with his urologist as needed. <Dr. William Seals, - Last Filed: 04/29/25 15:56> [facility] Treatment and Re-Evaluation Narrative: I have personally performed a face to face assessment of the patient and have reviewed the GIA Note. I performed a substantive portion of the visit including all aspects of the following. My rankin findings include: History: Patient present with leaking around his Diego catheter that was noticedyesterday. Patient had his chronic Diego catheter changed yesterday. Patient states that when he got home yesterday, he noted some leaking around the catheter. Patient denies any neck or back pain. Patient denies any fevers or chills. Patient denies any nausea or vomiting. Patient denies any suprapubic pain. Exam: Vital signs are stable. Patient is afebrile. Patient is in no acute distress. Oral mucosa is pink and moist. Neck is supple. Trachea is midline. There is no JVD. Heart was regular rate and rhythm. Lungs are clear and equal bilaterally. Abdomen is soft. Bowel sounds are normal. There is no tenderness. There is no rebound or guarding noted. Cranial nerves II through XII are intact. There are no focal motor or sensory deficits noted. Medical Decision Making: The Diego catheter was irrigated. There was a small clot retrieved from irrigation. Patient will be observed in the emergency department see if there is any further leaking after it was irrigated. Patient was feeling better evaluation wanted to go home. Patient will be discharged home. Patient was instructed to follow-up with urology as scheduled. Patient understood and was agreeable with plan. All questions were answered. Discharge Plan Triage Chief Complaint: Complaint ED Midlevel Provider: Chikis Puckett ED Provider: William Seals Dx/Rx/DC Orders Clinical Impression: Malfunction of Diego catheter, BPH (benign prostatic hyperplasia) Instructions: ED Diego Catheter, Care Prescriptions: No Action insulin glargine 100 unit/mL [...] mg iron) tablet 324 mg PO QHS ciprofloxacin HCl 500 mg tablet 500 mg PO DAILY 7 Days Qty: 7 0RF [facility] Care Provider[facility] Referrals[place] [facility] [Primary Care Provider] - Activity Restrictions/Additional Instructions: Your Diego catheter was adjusted and now seems to be draining normally. If you have any issues you can return to the ER or see your urologist. Print Language: Grenadian What to do if you have Problems For any increased pain, shortness of breath, bleeding, nausea or vomiting, chestpain, or any unexpected problems, contact your Primary Care Provider. Call [facility] ([phone]) or report to the closest Emergency Room. Call 911 if necessary. 04/29/25 1426 <Electronically signed by Chikis Puckett PA> Cosigner Signature (if applicable): 04/29/25 1614 <Electronically signed by William Seals DO> CC: [facility] ~ Signed [facility] Work Phone: 1(381) 689-302606-27-2025 Instructions* Patient Instructions* Alec Tinajero MD - 04/22/2025 8:27 AM EDT Images from the original note were not included. INSTRUCTIONS FROM DR. TINAJERO: We will have you see Dr. Florez [...] prostate cancer in its early stages, the [place] [employer] and the [place] [employer] recommend a screening every year for men ages 50 to 70. They further recommend that men who are at high risk -- such as -Thai men and men with a family history [...] gloved, lubricated finger into your rectum to feelthe prostate. Because the prostate gland is in front of the rectum, it is relatively easy for the doctor to feel much of the gland. This enables him or her to estimate the size of the prostate and todetect any hard areas that could be cancer. [...] treatment other than continued observation to make suretheir condition doesn't get worse. This approach is [...] BPH and is associated with less bleeding afterthe procedure. Another, less complicated procedure is transurethral incision of the prostate (TUIP). Instead of removing tissue, as with TURP, this approach involves widening the urethra by making several small cuts in the bladder neck (area where the urethra and bladder join), as well as in the prostate gland itself. This relieves some of the pressure on the urethra and improves urine flow. [facility] NoteHNO ID: [id number] Author: ALEC TINAJERO MD Service: ? Author Type: Physician Type: Progress Notes Filed: 04/22/2025 08:38 Note Text: ESTABLISHED PATIENT OFFICE VISIT Social Welfare Clerk present: Nina Sexton MA PATIENT INFO: Lori [...] pain Past Urology Hx: 03/15/2025 Pt CC: diego VOIDING SYMPTOMS: In June 2024 patient went into retention and the [facility] has been changing the catheter monthly since then He saw urology [facility] and they talked him about getting [place] [facility] at the [facility] [place] but he wants to come to [place] as it is closer to [place] where he lives Has had catheter change in [place] Had a aqua ablation in the past [...] him to get disc with films from [place] where he had them and see me [...] and dysuria. Risk of anesthesia complications, stroke, PR, etc.The patient expressed an understanding with regard to possible complications and outcom (more content not included)...[facility]06-27-2025 History of Present illness Narrative* Alec Tinajero MD - 04/22/2025 8:07 AM EDT ESTABLISHED PATIENT OFFICE VISIT Social Welfare Clerk present: Nina Sexton MA PATIENT INFO: Lori Lynch 79 year old HPI 04/22/2025 CC: bph [facility] to [facility] off on cystoscopy and ultrasound of prostate and we now have the records and CAT scanshows massive prostate Patient does want to get catheter free Discussed options of holmium laser nucleation versus robotic simple prostatectomy with Dr. Florez He wants to connect with Dr. Florez so we will refer He is only on baby aspirin with respect to any blood thinners Denies chest pain Past Urology Hx: 03/15/2025 Pt CC: diego VOIDING SYMPTOMS: In June 2024 patient went into retention and [facility] has been changing the catheter monthly since then He saw urology at the [facility] and they talked him about getting suprapubic tube at the [facility] in [place] but he wants to come to [place] as it is closer to [place] where he lives Has had catheter change in [place] Had a aqua ablation in the past and saw Dr. [place] as noted below but a lot of urine frequency then that persisted Catheter has been draining well now No fevers or chills Follows [facility] report showed some mild bilateral hydroureter and severe BPH with bilateral renal cysts and somemight be 2F and suggested follow-up Instructed him to get disc with films from [place] where he had them and see me [...] possibility of blood loss, and transfusion and thefact that he may be admitted post operatively. I explained the post operative urgency, frequency, and dysuria. Risk of anesthesia complications, stroke, PR, etc.The patient expressed an understandingwith regard to possible complications and outcome. Discussed options alpha clifford therapy vs proscar vs surical intervention and risks of these. Alpha bolckers can cause dizzines and falls. Discussed risk bladder decompinsation termite exterminator could be anissue if no surgical intervention. FOLLOW UP (1s&1w; 3s): Return if symptoms worsen or fail to improve. ASSESSMENT/PLAN: 1. Benign prostatic hyperplasia with urinary retention - ICD9: 600.01, 788.20, ICD10: N40.1, R33.8 Refer-Dr. Florez for simple robotic prostatectomy - US CYSTO/TRUS (POC) TONNY USE ONLY 2. Bilateral renal cysts-range from Bosniak 1-2 F Could be followed in the future Alec Tinajero The sensitive exam: The sensitive examination was discussed with the Patient or Patient's Authorized Houseman. Asapplicable, any other physician, advance practice provider, medical student, or other health professional student that will be observing or involved in the sensitive examination for educational or training purposes was discussed with the Patient or Authorized Houseman. The Patient or Authorized Houseman has agreed to proceed with the sensitive examination. (Sensitive examination includes inspection and/or palpation of the breasts, pelvis, prostate and anorectal regions) Please note: This note has been produced using speech recognition software and may contain errors related to that system including grammar, punctuation, spelling, gender and words and phrases that may be inappropriate. [facility] Radiology Diagnostic study note [facility] Imaging Services [address], [place] [address] Chest PA and Lateral MR#: [id number] Acct: [id number] Name: LORI LYNCH Rep #: [id number] : 1945 M 79 From: Irene Neal MD PCP: [facility] Status: REG CLI Study:Chest PA and Lateral Date of Exam: 03/24/25 Exam# [id number] Ordering Dr: Bibi Hernandez sa SAND BUFFER-C PROCEDURE: CHEST PA AND LATERAL 03/24/2025 REASON [...] right anterior 2nd rib fracture is not well- visualized by radiographic imaging. Degenerative changes are identified within the thoracic spine. RAD/Chest PA and Lateral IMPRESSION: 1. No obvious acute finding. 2. Ill-defined right upper lobe pulmonary mass, better evaluated on prior CT chest. 3. The additional bilateral pulmonary nodules seen on prior chest CT are not well-visualized by radiographic imaging. Reading Location: [facility] CC: MASON Hernandez; [facility] ~ Special Librarian: Signed [facility]05-20-2025 NoteHNO ID: [id number] Author: ALEC TINAJERO MD Service: ? 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 Camarillo as noted below but a lot of urine frequency then that persisted Catheter has been draining well now No fevers or chills Follows his elevated creatinine with [facility] CT report showed some mild bilateral hydroureter and severe BPH with bilateral renal cysts and some might be 2F and suggested follow-up Instructed him to get disc with films from [place] where he had them and see me [...] discussed with the Patient or Patient's Authorized Houseman. As applicable, any other physician, advance practice provider, medical student, or other health professional student that will be observing or involved in the sensitive examination for educational or training purposes was discussed with the Patient or Authorized Houseman. The Patient or Authorized Houseman has agreed to proceed with the sensitive [...] and outcome. FOLLOW UP: (more content not included)...[facility]04-01-2025 Discharge summary [facility] Medical Records Department [address] [place] [address] Emergency Department Summary 01/25/25 MR#: [id number] Acct: [id number] Name: LORI LYNCH Rep #:[id number] : 1945 79 From: Greg Ruiz MD PCP: [facility] Status:REG ER Location: ED HPI History [...] it has not recurred since. Catheter has continuedto drain and the urine has not looked any different. He is concerned he may have a UTI. [facility] Medical History BPH with obstruction/lower urinary tract [...] tablet 5 mg PO DAILY #30 tabs 07/1301/25/25 Rx ciprofloxacin HCl 500 mg tablet 500 [...] his urine which was obtained by changing Asysco does show pyuria and signs of infection,this was treated with IV Rocephinand sent for [...] we were able to obtain a 20 Ukrainian coud?, nursing advanced it all the way, [...] imaging, so he would not recommend reimaging thepatient now. I offered admission to the patient, he states he has an appointment with his urologistin 3 days and does not want to [...] 73.0 H Lymph % (Auto) 9.[address] [place] % (Auto) 15.4 H Eos % (Auto) [...] Clarity Turbid Urine pH 6.0 Ur Specific [place] 1.010 Urine Protein 100 H Urine Glucose [...] down to the urinary bladder. Distendedurinary bladder withmassive enlargement of the prostate with indentation of the bladder base. I can not rule out a mass at thebase of the bladder. The tip of the Diego catheter is seen within the prostatic urethra. Reading Location: [id number] Management Discussion w/another healthcare provider: Commercial Attache (Dr. [facility]) Discharge Plan Triage Chief [...] 324 mg PO QHS [facility] [facility] [facility] [Primary Care Provider] - Keep Cezar appointment [...] to the ER for reevaluation. Print Language: Grenadian Disposition Disposition: Home, Self Care What to do if you have Problems For any increased pain, shortness of breath, bleeding, nausea or vomiting, chestpain, or any unexpected problems, contact your Primary Care Provider. Call [facility] ([phone]) or report tothe closest Emergency Room. Call 911 if necessary. 01/25/25 1723 Cosigner Signature (if applicable): CC: [facility] ~ Signed [facility]04-01-2025 Radiology Diagnostic study note [facility] Imaging Services [address] [place] [address] Abdomen/Pelvis without Cont MR#: [id number] Acct: [id number] Name: LORI LYNCH Rep #: [id number] : 1945 M 79 From: John Padilla MD PCP: [facility] Status: REG ER Study:Abdomen/Pelvis without Cont Date of Exa m: 01/25/25 Exam# [id number] Ordering Dr: Shirley Ruiz MD PROCEDURE: ABDOMEN/PELVIS [...] down to the urinary bladder. Distendedurinary bladder withmassive enlargement of the prostate with indentation of the bladder base. I can not rule out a mass at thebase of the bladder. The tip of the Diego catheter is seen within the prostatic urethra. Reading Location: [id number] CC: Dr. Greg Ruiz MD; [facility] ~ Special Librarian: Signed [facility]04-01-2025 Discharge summary Author Greg Ruiz [facility] Note Date/Time January 25, 2025 5:28 pm [facility] Medical Records Department [address] [place] [address] Emergency Department Summary 01/25/25 MR#: [id number] Acct: [id number] Name: LORI LYNCH Rep #:[id number] : 1945 79 From: Greg Ruiz MD PCP: [facility] Status:REG ER Location: ED HPI History [...] is concerned he may have a UTI. [facility] Medical History BPH with obstruction/lower urinary tract [...] tablet 5 mg PO DAILY #30 tabs 07/1301/25/25 Rx ciprofloxacin HCl 500 mg tablet 500 [...] we were able to obtain a 20 Ukrainian coud?, nursing advanced it all the way, [...] 73.0 H Lymph % (Auto) 9.[address] [place] % (Auto) 15.4 H Eos % (Auto) [...] Clarity Turbid Urine pH 6.0 Ur Specific [place] 1.010 Urine Protein 100 H Urine Glucose [...] seen within the prostatic urethra. Reading Location: [id number] Management Discussion w/another healthcare provider: Commercial Attache (Dr. [facility]) Discharge Plan Triage Chief [...] 324 mg PO QHS Primary Care Provider: [facility] Referrals[place] [facility] [Primary Care Provider] - Keep Cezar appointment [...] to the ER for reevaluation. Print Language: Grenadian Disposition Disposition: Home, Self Care What to do if you have Problems For any increased pain, shortness of breath, bleeding, nausea or vomiting, chestpain, or any unexpected problems, contact your Primary Care Provider. Call [facility] ([phone]) or report to the closest Emergency Room. Call 911 if necessary. 01/25/25 1728 <Electronically signed by Greg Ruiz MD> Cosigner Signature (if applicable): CC: [facility] ~ Signed [facility] Work Phone: [phone]) 389-713503-31-2025 Nuclear medicine Diagnostic study note [facility] Imaging Services [address] [place] [address] Renal Scan w/ Pharm Intervent MR#: [id number] Acct: [id number] Name: LORI LYNCH Rep #: [id number] : 1945 M 79 From: John Padilla MD PCP: [facility] Status: REG CLI Study:Renal Scan w/ Pharm Intervent Date of E xam: 01/21/25 Exam# [id number] Ordering Dr: Gian VALDES PROCEDURE: RENAL SCAN W/ PHARM INTERVENT 01/21/2025 [...] with the injection of Lasix. Reading Location: [facility] CC: JANUARY MASON VALDES; [facility] ~ Special Librarian: Signed [facility]03-21-2025 Discharge summary [facility] Medical Records Department [address] [place] [address] Emergency Department Summary 01/14/25 MR#: [id number] Acct: [id number] Name: LORI LYNCH Rep #:[id number] : 1945 79 From: Greg Ruiz MD PCP: [facility] Status:REG ER Location: ED HPI History [...] thinks that is why it is leaking. [facility] Medical History BPH with obstruction/lower urinary tract [...] BID Qty: 14 0RF Primary Care Provider: [facility] Referrals: [facility] [Primary Care Provider] - 3-5 Days if not improving Print Language: Grenadian Disposition Disposition: Home, Self Care What to do if you have Problems For any increased pain, shortness of breath, bleeding, nausea or vomiting, chestpain, or any unexpected problems, contact your Primary Care Provider. Call [facility] ([phone]) or report tothe closest Emergency Room. Call 911 if necessary. 01/14/25 1426 Cosigner Signature (if applicable): CC: [facility] ~ Signed [facility]03-21-2025 Discharge summary Author Greg Ruiz [facility] Note Date/Time January 14, 2025 2:2 6pm [facility] Medical Records Department [address] [place] [address] Emergency Department Summary 01/14/25 MR#: [id number] Acct: [id number] Name: LORI LYNCH Rep #:[id number] : 1945 79 From: Greg Ruiz MD [facility]CP: [facility] Status:REG ER Location: ED HPI History [...] thinks that is why it is leaking. [facility] Medical History BPH with obstruction/lower urinary tract [...] BID Qty: 14 0RF [facility] [place] [facility] [facility] [[facility] Provider] - 3-5 Days if not improving Print Language: Grenadian Disposition Disposition: Home, Self Care What to do if you have Problems For any increased pain, shortness of breath, bleeding, nausea or vomiting, chestpain, or any unexpected problems, contact your Primary Care Provider. Call [facility] ([phone]) or report to the closest Emergency Room. Call 911 if necessary. 01/14/25 1426 <Electronically signed by Greg Ruiz MD> Cosigner Signature (if applicable): CC: [facility] ~ Signed [facility] Work Phone: [phone]) 207-784609-17-2024 [facility] Medical Records Department [address] [place] [address] Discharge Summary 07/13/24 1040 MR#: [id number] Acct: [id number] Name: LORI LYNCH Rep #: [id number] : 1945 78 From: Apple Chavez MD PCP: [facility] Status:DIS IN Location: [facility] [place]-7 Providers Date of Admission: 07/09/24 Date of Discharge: 07/13/24 Primary Care Physician: [facility] Consultations 07/09/24 22:15 Consult: Urology Routine [...] prescription for p.o. tamsulos (more content not included)...[facility]02-09-2023 Telephone encounter Note* Telephone Encounter - Chasidy [...] will give it more time to work. [facility] [id number] Miscellaneous Notes* Telephone Encounter - Chasidy Keenan [...] but states he needs prescription sent to [facility] instead. Rx switched to [facility] pharmacy per patient request. * Telephone Encounter - TALITA Murillo CNP - 11/07/2022 2:17 PM EST Rx for tolterodine (Detrol LA) sent to [facility] in [place]. Please advise him it could take 6-8 [...] is not helping. Per previous TE's the [facility] will not pay for myrbetriq. Patient aware to contact PCP if current gas pain is persistent.Patient voiced understanding. * Telephone Encounter - Marcelino Portillo - 11/07/2022 7:40 AM EST Name of caller: Phil Contact phone number: [phone] Relationship to Patient: patient Provider: [facility] Practice: Uro Chief Complaint/Reason for Call: Pt stating that he has been having gas pain with flatulence. He has tried beano, gas x and nothing has worked. He wants to know if something can be called into [facility] on [address] ph [phone]. Please call to let him know something not too expensive, by the way, will be called in for him or discuss further. Best time of day caller can be reached: Patient advised that office/PCP has 24-48 business hours to return their call: documented in this encounterSBarney Children's Medical CenterMegcwz44-73-2085 Telephone encounter Note* Telephone Encounter - Chasidy Keenan RN - 11/07/2022 4:13 PM EST Spoke with patient and relayed Yadi's note to him verbatim. He verbalizes understanding of allinformation provided, but states he needs prescription sent to [place] [facility] instead. Rx switched to [place] [facility] per patient request. [facility] HospitalTsfxur67-47-8297 Telephone encounter Note* Telephone Encounter - Yadi Pemberton APRN - GAMA - 11/07/2022 2:17 PM EST Rx for tolterodine (Detrol LA) sent to [facility] in [place]. Please advise him it could take 6-8 weeks to see full effect of the medication. If the medication causes any bothersome side effects such as dry eye, dry mouth, constipation, or difficulty urinating please have him call us. Thanks. [facility] [id number] Telephone encounter Note* Telephone Encounter - Kimberley [...] is not helping. Per previous TE's the [facility] will not pay for myrbetriq. Patient aware to contact PCP if current gas pain is persistent.Patient voiced understanding. [facility] [id number] Telephone encounter Note* Telephone Encounter - Marcelino Portillo - 11/07/2022 7:40 AM EST Name of caller: Phil Contact phone number: [phone] Relationship to Patient: patient Provider: [facility] Practice: Uro Chief Complaint/Reason for Call: Pt stating that he has been having gas pain with flatulence. He has tried beano, gas x and nothing has worked. He wants to know if something can be called into [facility] on [address] ph [phone]. Please call to let him know something not too expensive, by the way, will be called in for him or discuss further. Best time of day caller can be reached: Patient advised that office/PCP has 24-48 business hours to return their call: [facility] HospitalXvlzvc81-98-7193 Telephone encounter Note* Telephone Encounter - Kari Warren LPN - 11/05/2022 11:53 AM EST Patient informed of medication increase and needing 6 weeks follow up and PVR. Patient verbalized understanding and have no further questions or concerns at this time. [facility] HospitalWmgtvo15-05-8030 Miscellaneous Notes* Telephone Encounter - Kari Warren [...] 11/04/2022 9:06 AM EST Rx sent [place] [facility] [place] Myrbetric 25 mg for patient [...] EST Lvm that script was sent into [facility] pharmacy today. Call if he has any further questions or concerns. * Telephone Encounter - TALITA Man CNP - 10/25/2022 12:21 PM EST Sent. Please let patient know * Telephone Encounter - Franky Huang RN - 10/25/2022 12:08 PM EST Pt called in and stated, Dr Camarillo was supposed to send in Trospium [facility] the [facility], but [facility]. Someone needs to get their act together! I need this medicine! You need to let me know what's going on! Upon investigation, [facility] [place]. Pt would prefer Rx sent to [facility]. Pharmacy in chart and below. [facility] - [place], [place] - [address] [[id number]] Routing to Dr Camarillo and APPs to send to [facility]. Thank you. documented in this encounterSBarney Children's Medical [id number] Note* Addendum Note - TALITA Man CNP - 11/04/2022 2:42 PM ESTAddended by: SANDI PENA on: 11/04/2022 02:42 PM Modules accepted: Orders [facility] [id number] Note* Addendum Note - TALITA Man CNP - 11/04/2022 2:42 PM ESTAddended by: SANDI PENA on: 11/04/2022 02:42 PM Modules accepted: Orders [facility] HospitalAyosvy57-06-4079 Note* Addendum Note - TALITA Man CNP - 11/04/2022 2:42 PM ESTAddended by: SANDI PENA on: 11/04/2022 02:42 PM Modules accepted: Orders [facility] HospitalIbzhsv55-22-8259 Note* Addendum Note - TALITA Man CNP - 11/04/2022 2:42 PM ESTAddended by: SANDI PENA on: 11/04/2022 02:42 PM Modules accepted: Orders [facility] HospitalRcehnd93-88-1272 Note* Addendum Note - TALITA Man CNP - 11/04/2022 2:42 PM ESTAddended by: SANDI PENA on: 11/04/2022 02:42 PM Modules accepted: Orders [facility] HospitalXkgnwm16-03-3855 Miscellaneous Notes* Addendum Note - TALITA Man [...] 11/04/2022 9:06 AM EST Rx sent to [place] [facility] [place] Myrbetric 25 mg for patient [...] EST Lvm that script was sent into [facility] pharmacy today. Call if he has any further questions or concerns. * Telephone Encounter - TALITA Man CNP - 10/25/2022 12:21 PM EST Sent. Please let patient know * Telephone Encounter - Franky Huang RN - 10/25/2022 12:08 PM EST Pt called in and stated, Dr Camarillo was supposed to send in Trospium [place] [facility] [place] [facility] Friday, but [facility]. Someone needs to get their act together! I need this medicine! You need to let me know what's going on! Upon investigation, Trospium appears to have been sent to [facility] in [place]. Pt would prefer Rx sent to [facility]. Pharmacy in chart and below. [facility] - [place], [place] - [address] [address] [[id number]] Routing to Dr Camarillo and APPs to send to [facility]. Thank you. documented in this encounterSBarney Children's Medical CenterQyzevr04-85-6752 Telephone encounter Note* Telephone Encounter - TALITA Man CNP - 11/04/2022 2:41 PM EST Okay increased trospium to 20mg BID but still needs someone to schedule an appointment in 6 weeks to assess medication effectiveness and for PVR check. Thanks [facility] HospitalYcnkbu83-09-0036 Telephone encounter Note* Telephone Encounter - Chasidy Keenan RN - 11/04/2022 2:31 PM EST Called and spoke with patient. [facility] states [facility]. He wants to know if he can try a stronger dose of trospium instead. Please advise. [facility] [id number] Note* Addendum Note - TALITA Ruiz CNP - 11/04/2022 9:08 AM ESTAddended by: LOREN TREADWELL on: 11/04/2022 09:08 AM Modules accepted: Orders [address]Mjbaem35-15-1496 Note* Addendum Note - TALITA Ruiz CNP - 11/04/2022 9:08 AM ESTAddended by: LOREN TREADWELL on: 11/04/2022 09:08 AM Modules accepted: Orders [place] [id number] Note* Addendum Note - TALITA Ruiz CNP - 11/04/2022 9:08 AM ESTAddended by: LOREN TREADWELL on: 11/04/2022 09:08 AM Modules accepted: Orders [facility]01-09-2023 Note* Addendum Note - TALITA Ruiz CNP - 11/04/2022 9:08 AM ESTAddended by: LOREN TREADWELL on: 11/04/2022 09:08 AM Modules accepted: Orders [facility]01-09-2023 Note* Addendum Note - TALITA Ruiz CNP - 11/04/2022 9:08 AM ESTAddended by: LOREN TREADWELL on: 11/04/2022 09:08 AM Modules accepted: Orders [facility]01-09-2023 Telephone encounter Note* Telephone Encounter - TALITA Ruiz CNP - 11/04/2022 9:06 AM EST Rx sent to [place] [facility] for Myrbetric 25 mg for patient to try. Please schedule an appointment in 6 weeks to assess medication effectiveness and for PVR check. Thanks [place] [address]-09-2023 Telephone encounter Note* Telephone Encounter - Trice [...] to try somethingelse. Please advise, thank you. [facility] HospitalAdtwhd23-91-2638 Telephone encounter Note* Telephone Encounter - Kari Warren LPN - 10/25/2022 12:28 PM EST Lvm that script was sent into [facility] pharmacy today. Call if he has any further questions or concerns. [facility] HospitalPvaehz37-22-2879 Telephone encounter Note* Telephone Encounter - TALITA Man CNP - 10/25/2022 12:21 PM EST Sent. Please let patient know [facility] HospitalQwluka99-15-0983 Telephone encounter Note* Telephone Encounter - Franky Huang RN - 10/25/2022 12:08 PM EST Pt called in and stated, Dr Camarillo was supposed to send in Trospium [place] [facility], but [facility]. Someone needs to get their act together! I need this medicine! You need to let me know what's going on! Upon investigation, Trospium appears to have been sent to [facility] in [place]. Pt would prefer Rx sent to [facility]. Pharmacy in chart and below. [facility] - [place], [place] - [address] [[id number]] Routing to Dr Camarillo and APPs to send to [facility]. Thank you. [facility]12-02-2022 NoteI agree with plan of care. He can call us if symptoms persist and we can redo urine testing. Closing encounter.[facility]10-20-2022 Hospital Discharge instructions* Discharge Instructions* Aurora Negro [...] your scheduled surgery time. Please bring your [facility] Surgical folder and medication list with you day of surgery. We encourage you to write down any questions you may have for the surgeon, anesthesiologist, or other members of the surgical team and bring it with you the day of surgery. Please bring photo ID and insurance information. You may use the free dude ranch manager parking at the main entrance on [address] [place] [address], or the free parking in the [facility] parking deck * Attachments The following attachments cannot be sent through Care Everywhere. * Cystoscopy: Post-op (Grenadian) documented in this [facility] Work Phone: Evaluation noteNo assessment information available [facility] Work Phone: Evaluation note* Diagnosis Pre-op testing- Primary Preoperative examination, unspecified documented in this encounter [facility] Work Phone: Evaluation note* Diagnosis Frequency of urination Urinary frequency documented in this encounter [facility] note* Diagnosis Frequency of urination Urinary frequency documented in this encounter [facility] note* Diagnosis Urgency of urination- Primary documented in this encounter [facility] note* Diagnosis Benign prostatic hyperplasia with urinary retention- Primary Renal cysts, acquired, bilateral Acquired cyst of [facility] Additional Instructions Your prostate is [...] catheter again, return to the ER for reevaluation.[facility] Work Phone: Hospital Discharge instructionsAdditional Instructions Your Diego catheter was adjusted and now seems to be draining normally. If you have any issues you can return to the ER or see your urologist.[facility] Work Phone: Hospital Discharge instructionsAdditional Instructions Your Diego catheter was replaced. If you have any issues you can return to the ER or see your urologist.[facility] Work Phone: Reason for referral (narrative)No reason for referral information availableWFort [facility] Work Phone: Chief Complaint and Reason for [...] LUNG CANCER March 29, 2025 8:23a m Chief Complaint Admit Date leaking diego January 14, 2025 11: 36am HYDRONEPHROSIS January 21, 2025 10: 28am diego complications possible uti January 252024 11:17am CATH LEAKING March 02, 2025 9:44am LUNG CANCER April 05, 2025 7:42 am Chief Complaint Admit Date leaking diego January 14, 2025 11: 36am HYDRONEPHROSIS January 21, 2025 10: 28am diego complications possible uti January 252024 11:17am CATH LEAKING March 02, 2025 9:44am LUNG CANCER April 05, 2025 7:42 am gu c/o April 29, 2025 1:02p m Advance Directives No Advanced Directives Records Found Advance Directive Response Recorded Date/ Time Living Will No March 14, 2022 1 2:35pm Power of Cigarette Filter Inspector No March 14, 2022 12:35pm Advance Directive Response Recorded Date/ Time Living Will No March 14, 2022 1 1:35am Power of Cigarette Filter Inspector No March 14, 2022 11:35am Latest Code Status on File Code Status Date Activated Date Inactivated Comments Full Code 08/23/2022 5:17 PM 08/25/2022 3:35 PM Advance Directive Response Recorded Date/ Time Living Will Yes November 13 11:14pm Do you have a Healthcare Power of Cigarette Filter Inspector? Yes November 13, 2024 11:14pm Name of Medical Power of Cigarette Filter Inspector - LAAR November 13, 2024 11:14pm Living Will No January 14, 2025 12:37pm Do you have a Healthcare Power of Cigarette Filter Inspector? No January 14, 2025 12:37pm Advance Directive Response Recorded Date/ Time Living Will No January 25, 2025 11:28am Do you have a Healthcare Power of Cigarette Filter Inspector? No January 25, 2025 11:28am Living Will Yes November 13 11:14pm Do you have a Healthcare Power of Cigarette Filter Inspector? Yes November 13, 2024 11:14pm Name of Medical Power of Cigarette Filter Inspector - LARA November 13, 2024 11:14pm Living Will No January 14, 2025 12:37pm Do you have a Healthcare Power of Cigarette Filter Inspector? No January 14, 2025 12:37pm Advance Directive Response Recorded Date/ Time Living Will No January 25, 2025 11:28am Do you have a Healthcare Power of Cigarette Filter Inspector? No January 25, 2025 11:28am Living Will Yes November 13 11:14pm Do you have a Healthcare Power of Cigarette Filter Inspector? Yes November 13, 2024 11:14pm Name of Medical Power of Cigarette Filter Inspector - LARA November 13, 2024 11:14pm Living Will No January 14, 2025 12:37pm Do you have a Healthcare Power of Cigarette Filter Inspector? No January 14, 2025 12:37pm Do you have a Healthcare Power of Cigarette Filter Inspector? Yes March 02, 2025 11:09am Name of Medical Power of Cigarette Filter Inspector March 02, 2025 11:09am Advance Directive Response Recorded Date/ Time Living Will No January 25, 2025 11:28am Do you have a Healthcare Power of Cigarette Filter Inspector? No January 25, 2025 11:28am Living Will No January 14, 2025 12:37pm Do you have a Healthcare Power of Cigarette Filter Inspector? No January 14, 2025 12:37pm Do you have a Healthcare Power of Cigarette Filter Inspector? Yes March 02, 2025 11:09am Name of Medical Power of Cigarette Filter Inspector March 02, 2025 11:09am Advance Directive Response Recorded Date/ Time Living Will No January 25, 2025 11:28am Do you have a Healthcare Power of Cigarette Filter Inspector? No January 25, 2025 11:28am Living Will No January 14, 2025 12:37pm Do you have a Healthcare Power of Cigarette Filter Inspector? No January 14, 2025 12:37pm Do you have a Healthcare Power of Cigarette Filter Inspector? Yes March 02, 2025 11:09am Name of Medical Power of Cigarette Filter Inspector March 02, 2025 11:09am Do you have a Healthcare Power of Cigarette Filter Inspector? 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 [place] [address] Surgeon Urology 08/25/22 Franc Zambrano MD [address] [place] [address] Surgeon Urology 08/25/22 Heri Camarillo MD [address] [place] [address] Surgeon Urology 09/16/22 Team Status: Active Member Role Status Dates [facility] Primary Care Provider Active Team Status: Inactive Member Role Status Dates [facility] Primary Care Provider Active Start: November 13, 2024 End: November 13, 2024 Dr. Rowdy Shearer DO Attending Provider Active Start: November 13, 2024 End: November 13, 2024 Dr. Rowdy Shearer DO Emergency Provider Active Start: November 13, 2024 End: November 13, 2024 Team Status: Inactive Member Role Status Dates [facility] Primary Care Provider Active Start: January 14, 2025 End: January 14, 2025 Dr. Greg Ruiz MD Emergency Provider Active Start: January 14, 2025 End: January 14, 2025 Team Status: Inactive Member Role Status Dates [facility] Primary Care Provider Active Start: January 14, 2025 End: January 14, 2025 Dr. Greg Ruiz MD Attending Provider Active Start: January 14, 2025 End: January 14, 2025 Dr. Greg Ruiz MD Emergency Provider Active Start: January 14, 2025 End: January 14, 2025 Team Status: Inactive Member Role Status Dates [facility] Primary Care Provider Active Start: January 21, 2025 End: January 21, 2025January KEISHA , SAND BUFFER-C Attending Provider Active St art: January 21, 2025 End: January 21, 2025January KEISHA , SAND BUFFER-C Referring Provider Active St art: January 21, 2025 End: January 21, 2025 Team Status: Active Member Role Status Dates [facility] Primary Care Provider Active Start: January 25, 2025 Dr. Greg Ruiz MD Emergency Provider Active Start: January 25, 2025 Team Status: Inactive Member Role Status Dates [facility] Primary Care Provider Active Start: January 25, 2025 End: January 25, 2025 Dr. Greg Ruiz MD Emergency Provider Active Start: January 25, 2025 End: January 25, 2025 Team Status: Inactive Member Role Status Dates [facility] Primary Care Provider Active Start: January 25, 2025 End: January 25, 2025 Dr. Greg Ruiz MD Attending Provider Active Start: January 25, 2025 End: January 25, 2025 Dr. Greg Ruiz MD Emergency Provider Active Start: January 25, 2025 End: January 25, 2025 Team Status: Inactive Member Role Status Dates [facility] Primary Care Provider Active Start: March 02, 2025 End: March 02, 2025 Dr. Clayton Croft DO Emergency Provider Active Start: March 02, 2025 End: March 02, 2025 Team Status: Inactive Member Role Status Dates [facility] Primary Care Provider Active Start: March 02, 2025 End: March 02, 2025 Dr. Clayton Croft DO Attending Provider Active Start: March 02, 2025 End: March 02, 2025 Dr. Clayton Croft DO Emergency Provider Active Start: March 02, 2025 End: March 02, 2025 Team Status: Inactive Member Role Status Dates [facility] Primary Care Provider Active Start: March 24, 2025 End: March 24, 2025 VICKY TejadaC Attending Provider Active Star t: March 24, 2025 End: March 24, 2025 Chikis Hernandez NP-C Referring Provider Active Star t: March 24, 2025 End: March 24, 2025 Team Status: Inactive Member Role Status Dates [facility] Primary Care Provider Active Start: March 29, 2025 End: March 29, 2025 IRMA GOMES Attending Provider Active Sta rt: March 29, 2025 End: March 29, 2025 IRMA GOMES Referring Provider Active Sta rt: March 29, 2025 End: March 29, 2025 Team Status: Inactive Member Role Status Dates [facility] Primary Care Provider Active Start: April 05, 2025 End: April 05, 2025 IRMA GOMES Attending Provider Active Sta rt: April 05, 2025 End: April 05, 2025 IRMA GOMES Referring Provider Active Sta rt: April 05, 2025 End: April 05, 2025 Team Status: Active Member Role Status Dates [facility] Primary Care Provider Active Start: March 29, 2025 IRMA GOMES Attending Provider Active Sta rt: March 29, 2025 IRMA GOMES Referring Provider Active Sta rt: March 29, 2025 Aircraft Worker Relationship Specialty Start Date End Date [facility] [address] [place] [address] PCP - General 02/10/25 [place] [address] [place] [address] Referring Urology 07/30/23 Team Status: Active Member Role/Relationship Status Dates [facility] Primary Care Provider Active Team Status: Inactive Member Role/Relationship Status Dates [facility] Primary Care Provider Active Start: January 14, 2025 End: January 14, 2025 Dr. Greg Ruiz MD Attending Provider Active Start: January 14, 2025 End: January 14, 2025 Dr. Greg Ruiz MD Emergency Provider Active Start: January 14, 2025 End: January 14, 2025 Team Status: Inactive Member Role/Relationship Status Dates [facility] Primary Care Provider Active Start: January 21, 2025 End: January 21, 2025January KEISHA , SAND BUFFER-C Attending Provider Active St art: January 21, 2025 End: January 21, 2025January KEISHA , SAND BUFFER-C Referring Provider Active St art: January 21, 2025 End: January 21, 2025 Team Status: Inactive Member Role/Relationship Status Dates [facility] Primary Care Provider Active Start: January 25, 2025 End: January 25, 2025 Dr. Greg Ruiz MD Attending Provider Active Start: January 25, 2025 End: January 25, 2025 Dr. Greg Ruiz MD Emergency Provider Active Start: January 25, 2025 End: January 25, 2025 Team Status: Inactive Member Role/Relationship Status Dates [facility] Primary Care Provider Active Start: March 02, 2025 End: March 02, 2025 Dr. Clayton Croft DO Attending Provider Active Start: March 02, 2025 End: March 02, 2025 Dr. Clayton Croft DO Emergency Provider Active Start: March 02, 2025 End: March 02, 2025 Team Status: Inactive Member Role/Relationship Status Dates [facility] Primary Care Provider Active Start: March 24, 2025 End: March 24, 2025 Chikis Hernandez NP-C Attending Provider Active Star t: March 24, 2025 End: March 24, 2025 Chikis Hernandez NP-Bashir Referring Provider Active Star t: March 24, 2025 End: March 24, 2025 Team Status: Inactive Member Role/Relationship Status Dates [facility] Primary Care Provider Active Start: April 05, 2025 End: April 05, 2025 IRMA GOMES Attending Provider Active Sta rt: April 05, 2025 End: April 05, 2025 IRMA GOMES Referring Provider Active Sta rt: April 05, 2025 End: April 05, 2025 Team Status: Inactive Member Role/Relationship Status Dates [facility] Primary Care Provider Active Start: April 29, 2025 End: April 29, 2025 Dr. Wliliam Seals , Emergency Provider Active Start: April 29, 2025 End: April 29, 2025 (unrecognized sect ion and content) No Status Records FoundNo Status Records FoundNo Status Records FoundNo Status Records Found INFORMATION SOURCE (unrecogn ized section and content) DATE CREATED AUTHOR 08/24/2022 [facility] DATE CREATED AUTHOR AUTHOR'S ORGANIZ ATION 12/06/2022 [facility] DATE CREATED AUTHOR AUTHOR'S ORGANIZ ATION 04/23/2025 [facility] DATE CREATED AUTHOR AUTHOR'S ORGANIZ ATION 05/04/2025 [facility] Reason for Visit (unrecogniz ed section and content) Reason Onset Date Comments Medication Question 10/25/2022 Reason Onset Date Comments Gas 11/07/2022 Pt stating that he has been having gas pain with flatulence. He has tried beano, gas x and nothing has worked. He wants to know if something can be called into [facility] on [address] ph [phone]. Please call to let him know something not too expensive, by the way, will be called in for him or discuss further. 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/would like SPT place in lieu of chronic diego/ref by [facility] (Estela [phone] ext [phone] Procedures OFFICE/OUTPATIENT NEW MODERATE MDM 45 MINUTES OFFICE/OUTPATIENT ESTABLISHED MOD MDM 30 MIN [facility] [place] Alec Tinajero MD [address] [place] [address] Phone: tel: fax: Referral ID Status Reason Start Date Expiration Date V isits Requested Visits Authorized [id number] Authorized 02/07/2025 08/06/2025 99 99 Source Comments (unrecognize d section and content) In the event this informatio n is protected by the Federal Confidentiality of Alcohol and Drug Abuse Patient Records regulations: The Federal rules restrict any use of the information to criminally investigate or prosecute any alcohol or drug abuse patient.[facility] FOR RECORDS PERTAINING TO PATIENTS WHO ARE [...] BE BASED ON THE PRIMARY CLINICAL RECORDS. [employer] [facility]. provides no warranty or guarantee of the accuracy or completeness of information in this document.
--- NOTE | 2025-05-08 08:04 | ED.RN ---
catheter draining pink. manually irrigated catheterfew small clots, now draining meli yellow.
[2025-05-08 08:10] LABS: Color, Urine Yellow (Yellow); Glucose, Dipstick 100 mg/dl (Normal); Ketone-Dipstick Negative (Negative); Leukocyte Esterase-Dipstick 500 /ul (Negative); Nitrite-Dipstick Negative (Negative); Occult Blood-Urine 250 /ul (Negative); Protein-Dipstick 100 mg/dl (Negative); Specific Gravity, Urine 1.010 (1.002-1.030); Urine Bilirubin Dipstick Negative (Negative)
[2025-05-08 08:18] LABS: Red Blood Cells-Urine > 100 SEEN /hpf (0-5)
[2025-05-08 09:28] VITALS: BP 157/89; PULSE 72; RESP 18; TEMP 36.7; O2SAT 99
== END 2025-05-08 09:29 | disposition home or self-care (01) ==
PROVIDERS: Emergency Provider Emergency Medicine; Visit Provider Emergency Medicine
DX: R31.9 Hematuria, unspecified (principal); E11.9 Type 2 diabetes mellitus without complications; Z79.4 Long term (current) use of insulin; N40.1 Benign prostatic hyperplasia with lower urinary tract symptoms; I10 Essential (primary) hypertension; N13.9 Obstructive and reflux uropathy, unspecified; E78.00 Pure hypercholesterolemia, unspecified; Z79.899 Other long term (current) drug therapy; Z79.84 Long term (current) use of oral hypoglycemic drugs; Z79.82 Long term (current) use of aspirin; Z96.619 Presence of unspecified artificial shoulder joint; F17.200 Nicotine dependence, unspecified, uncomplicated; B96.89 Other specified bacterial agents as the cause of diseases classified elsewhere
CPT/HCPCS: 81001; 87077; 87086; 87088; 87186; 99282

== ENCOUNTER 2025-05-09 19:43 | Emergency (ER) | payer OTHER, SELFPAY ==
[2025-05-09 19:44] VITALS: BP 147/64; PULSE 81; RESP 18; TEMP 36.6; O2SAT 96; BMI 27.4
--- NOTE | 2025-05-09 19:50 | RAD_ITS ---
PROCEDURE: HAND MIN 3 VIEWS 05/09/2025 REASON FOR EXAM: INJURY TECHNIQUE: HAND MIN 3 VIEWS COMPARISON: No FINDINGS: Scattered hand osteoarthritis, mainly small osteophyte formation and interphalangeal joint space narrowing. No acute bone or soft tissue pathology. RAD/Hand Min 3 Views IMPRESSION: No acute injury. Reading Location: [place] [address]
--- NOTE | 2025-05-09 19:50 | RAD_ITS ---
PROCEDURE: WRIST MIN 3 VIEWS 05/09/2025 REASON FOR EXAM: INJURY TECHNIQUE: WRIST MIN 3 VIEWS COMPARISON: No FINDINGS: Mild lateral wrist osteoarthritis. Triangular fibrocartilage calcification. No acute fracture or dislocation. RAD/Wrist min 3 Views IMPRESSION: No acute injury Reading Location: [place] [address]
== END 2025-05-09 20:07 | disposition left against medical advice (07) ==
LOC: ED 20:31
DX: Z00.00 Encounter for general adult medical examination without abnormal findings (principal)
CPT/HCPCS: 73110; 73130

== ENCOUNTER → 2025-05-23 | Outpatient (CLI) | payer OTHER, SELFPAY ==
[2025-05-23] VITALS (21 sets, daily range): BP systolic 115–136; BP diastolic 60–93; PULSE 60–76; RESP 11–18; TEMP 36.1; O2SAT 94–98; BMI 32.6
[2025-05-23 08:57] LABS: Hematocrit 34.8 % (40-54); Hemoglobin 11.2 g/dL (13.0-16.5); Immature Granulocytes Count 0.100 X10^3/uL (0.0-0.0); Mean Corp Hgb Conc 32.2 g/dL (32-36); Mean Corpuscular Volume 77.9 fL (80-94); Mean Platelet Vol. 10.9 fl (6.2-12.0); NRBC Flagged by Analyzer 0 % (0-5); POSITIVE DIFFERENTIAL YES; Platelet Count 353 K/mm3 (150-450); RBC Distribution Width CV 18.6 % (11.6-14.6); RBC Distribution Width SD 51.5 fl (35.1-43.9); Red Blood Count 4.47 M/mm3 (4.6-6.2); White Blood Count 13.9 K/mm3 (4.4-11.0)
[2025-05-23 08:58] LABS: Differential Indicated SCAN CRITERIA MET
[2025-05-23 09:04] LABS: Partial Thromboplast Time 29.1 Seconds (24.1-36.2); Prothrombin Time (Protime)PT. 13.9 SECONDS (11.7-14.9)
[2025-05-23] MEDS: 0.9% Normal Saline (250mL Bag) 250 ML 15 ML IV (10:23)
[2025-05-23] MEDS: Midazolam 2 MG/2 ML Syringe IV ×2 (10:23→10:46)
[2025-05-23] MEDS: fentaNYL 100 MCG/2 ML Ampul IV ×2 (10:27→10:59)
--- NOTE | 2025-05-23 10:30 | CT_ITS ---
EXAM: CT-guided core biopsy of a left upper lobe hypermetabolic nodule CLINICAL HISTORY: Hypermetabolic left upper lobe nodule on PET-CT of 04/05/2025 COMPARISON: PET-CT of 04/05/2020. TECHNIQUE: Conscious sedation was employed for this procedure, with intravenous administration of a total of 2 mg Versed and [address]-guided core biopsy of a left upper lobe hypermetabolic pulmonary nodule was performed, with the patient in prone positioning. 2% lidocaine local anesthesia was followed by placement of a 20 gauge 15 cm Power Efficiency core biopsy system. 4 core samples were successfully obtained. A very small pneumothorax was seen on post images. CT/Biopsy/Inj or Needle Placement IMPRESSION: Successful left upper lobe hypermetabolic nodule core biopsy. Pathology result s pending. Reading Location: [place] [address]
[2025-05-23] MEDS: Lidocaine 2% (20 ml mdv) 20 ML Vial INFILT (10:35)
--- NOTE | 2025-05-23 12:00 | RAD_ITS ---
EXAM: AP inspiration expiration views following left lung biopsy. CLINICAL HISTORY: Status post left lung biopsy. COMPARISON: Prior study dated March 24, 2025. TECHNIQUE: AP inspiration expiration views. FINDINGS: No evidence of pneumothorax following the biopsy. RAD/Chest Insp/Exp 2 View IMPRESSION: No evidence of pneumothorax following the biopsy. Reading Location: [id number]
--- NOTE | 2025-05-23 14:00 | RAD_ITS ---
EXAM: AP portable upright inspiratory and expiratory chest CLINICAL HISTORY: 3 hour post left lung biopsy COMPARISON: Chest x-ray of earlier on 05/23/2025 TECHNIQUE: Two-view AP portable upright inspiratory and expiratory chest RAD/Chest Insp/Exp 2 View IMPRESSION: No pneumothorax is seen. Lungs appear unchanged. No pleural effusion is evident. The cardiomediastinal silhouette is stable, without evidence of cardiomegaly. No interval osseous change is noted. Reading Location: [place] [address]
== END | disposition home or self-care (01) ==
LOC: CT 08:43
PROVIDERS: Radiology Nuclear Radiology
DX: Z01.812 Encounter for preprocedural laboratory examination (principal); R91.1 Solitary pulmonary nodule
CPT/HCPCS: 32408; 36415; 71046; 77012; 85025; 85610; 85730; 88172; 88305; 88313; 88341; 88342; 99156; 99157; A4216

== ENCOUNTER 2025-05-26 18:21 | Emergency (ER) | payer OTHER, SELFPAY ==
[2025-05-26 18:22] VITALS: BP 181/73; PULSE 80; RESP 18; TEMP 36.6; O2SAT 100
--- NOTE | 2025-05-26 18:52 | EX.ED.GUMALE ---
HPI History of Present Illness Chief Complaint: Complaint Narrative Narrative: 79-year-old male past medical history of BPH with history of obstruction presents for Diego catheter change. He relates history that he has had multiple surgeries on his prostate the last being in May of last year, almost 1 year ago. He usually has his Diego catheter exchanged every month. Recently at the [facility], they have been inserting coud? catheters. He ends up leaking around them, and has to come to the emergency department to get it exchanged for a regular Diego catheter that is 20 English in size. He states that he had a Diego catheter changed today at the [facility] and it started leaking around the catheter again. He denies any fevers or chills, he is having bladder spasms. No hematuria. He states that this is the third time that he has had to come to the emergency department to get his straight Diego catheter. [facility] Medical History BPH with obstruction/lower urinary tract symptoms UTI (urinary tract infection) Leukocytosis Acute kidney injury Acute lactic acidosis Generalized weakness Diabetes High cholesterol HTN (hypertension) Smoker Prostate enlargement Lung cancer Home Medications ?Medication ?Instructions ?Recorded ?Last Taken ?Type amlodipine 10 mg tablet 10 mg PO DAILY BP 07/10/24 01/25/25 History aspirin 81 mg chewable tablet 81 mg PO DAILY blood thinner 07/10/24 01/24/25 History atorvastatin 40 mg tablet 40 mg PO QHS cholesterol 07/10/24 01/24/25 History glipizide 10 mg tablet 5 mg PO DAILY diabetes 07/10/24 05/22/25 History insulin glargine 100 unit/mL (3 10 unit subcut QHS diabetes 07/10/24 01/24/25 History mL) subcutaneous pen pregabalin 75 mg capsule (Lyrica) 75 mg PO BID pain 07/10/24 01/25/25 History sitagliptin 25 mg tablet 25 mg PO DAILY diabetes 07/10/24 01/25/25 History finasteride 5 mg tablet 5 mg PO DAILY #30 tabs 07/13/24 01/25/25 Rx ferrous gluconate 324 mg (38 mg 324 mg PO QHS 01/25/25 01/24/25 History iron) tablet levofloxacin 750 mg tablet 750 mg PO DAILY #5 tabs 05/11/25 Unknown Rx levofloxacin 750 mg tablet 750 mg PO DAILY #7 tabs 05/26/25 Unknown Rx Allergy/AdvReac Type Severity Reaction Status Date / Time amoxicillin (From Augmentin) Allergy Hives Verified 05/26/25 18:23 clavulanic acid (From Allergy Hives Verified 05/26/25 18:23 Augmentin) lisinopril Allergy Other Verified 05/26/25 18:23 Family History Other Diabetes Surgical History H/O shoulder replacement Social History Smoking Status: Current every day smoker tobacco type: cigarettes ROS ROS ED ROS Narrative Positive bladder spasms. Leaking around Diego catheter. No fevers or chills. No exacerbating or alleviating factors. EXAM Physical Exam Narrative Exam Narrative: Afebrile. Vital signs noted. Nontoxic-appearing. Cardiovascular examination regular rate and rhythm. Lungs clear to auscultation bilaterally. Abdomen soft and nontender with positive bowel sounds. Visual inspection does show Diego catheter draining yellow urine, no gross hematuria. Const Vital Signs: 05/26/25 18:22 Temperature 98 F Temperature Source Oral Pulse Rate 80 Respiratory Rate 18 Blood Pressure 181/73 H Blood Pressure Mean 109 Pulse Ox 100 Oxygen Delivery Method Room Air MDM MDM MDM Narrative Medical decision making narrative: I do not feel the differential diagnosis is indicated as he is here for Diego catheter exchange. 20 English Diego catheter will be placed by RN. Additionally, he was concerned and wanted a urinalysis performed which I think is reasonable since he has indwelling Diego catheter, but I have a low suspicion for infection clinically. He may have more of a colonization. Diego catheter exchanged by RN. I reviewed his urinalysis and he does have greater than 100 WBCs with 25-50 RBCs and 3+ bacteria. He has negative for nitrites. I did review his prior ED visit and he ended up having a UTI for which he was treated with Cipro but the bacterial species was sensitive to Levaquin. He was called in a prescription for Levaquin instead so this time while urine culture was sent, he was given his first dose of Levaquin here and prescription written for the next 7 days. I feel he can be discharged to follow-up with his urologist at the [facility]. Return instructions were reviewed. Disposition is discharged home in stable condition. History & Record Review Additional record(s) reviewed:: Prior ED visit (Bacterial species is sensitive to Levaquin) Lab Data Attestation: I reviewed the patient's lab results. Labs: Laboratory Results - last 24 hr 05/26/25 19:19 Urine Color Straw Urine Clarity Turbid Urine pH 6.5 Ur Specific [place] 1.015 Urine Protein 100 H Urine Glucose (UA) Normal Urine Ketones Negative Urine Occult Blood 250 H Urine Nitrite Negative Urine Bilirubin Negative Urine Urobilinogen Normal Ur Leukocyte Esterase 500 H Urine RBC 25-50 SEEN Urine WBC >100 SEEN Ur Squamous Epith Cells 0 SEEN Urine Bacteria 3+ Urine Mucus 0 SEEN Discharge Plan Triage Chief Complaint: Complaint ED Provider: Oscar Valencia Dx/Rx/DC Orders Clinical Impression: Diego catheter problem, Indwelling Diego catheter present, Complicated urinary tract infection Instructions: ED Diego Catheter, Care, ED Urinary Tract Infections in Men Prescriptions: New levofloxacin 750 mg tablet 750 mg PO DAILY Qty: 7 0RF No Action insulin glargine 100 unit/mL (3 mL) insulin pen 10 unit subcut QHS aspirin 81 mg tablet,chewable 81 mg PO DAILY Patient Comments: PT TAKES IN EVENING atorvastatin 40 mg tablet 40 mg PO QHS pregabalin [Lyrica] 75 mg capsule 75 mg PO BID sitagliptin 25 mg tablet 25 mg PO DAILY amlodipine 10 mg tablet 10 mg PO DAILY glipizide 10 mg tablet 5 mg PO DAILY finasteride 5 mg Tablet 5 mg PO DAILY Qty: 30 1RF ferrous gluconate 324 mg (38 mg iron) tablet 324 mg PO QHS levofloxacin 750 mg tablet 750 mg PO DAILY Qty: 5 0RF [facility]errals[facility] [Primary Care Provider] - Activity Restrictions/Additional Instructions: Follow-up with your urologist at the [facility]. Antibiotics as directed. Return with fever, new or worsening symptoms. Print Language: American Disposition Disposition: Home, Self Care
--- NOTE | 2025-05-26 19:24 | ED.RN ---
attempt to call report to [facility],unsuccessful.
[2025-05-26 19:25] LABS: Mucous, Urine 0 SEEN /hpf (<or=2+); Squamous Epithelial Cells - UA 0 SEEN /hpf (0-5)
[2025-05-26 19:29] LABS: Color, Urine Straw (Yellow); Glucose, Dipstick Normal (Normal); Ketone-Dipstick Negative (Negative); Leukocyte Esterase-Dipstick 500 /ul (Negative); Nitrite-Dipstick Negative (Negative); Occult Blood-Urine 250 /ul (Negative); Protein-Dipstick 100 mg/dl (Negative); Specific Gravity, Urine 1.015 (1.002-1.030); Urine Bilirubin Dipstick Negative (Negative)
[2025-05-26 20:08] LABS: Red Blood Cells-Urine 25-50 SEEN /hpf (0-5)
[2025-05-26 20:25] VITALS: BP 140/69; PULSE 65; RESP 16; TEMP 36.8; O2SAT 97
== END 2025-05-26 20:33 | disposition home or self-care (01) ==
PROVIDERS: Emergency Provider Emergency Medicine; Visit Provider Emergency Medicine
DX: T83.511A Infection and inflammatory reaction due to indwelling urethral catheter, initial encounter (principal); E11.9 Type 2 diabetes mellitus without complications; Z79.4 Long term (current) use of insulin; I10 Essential (primary) hypertension; E78.00 Pure hypercholesterolemia, unspecified; N39.0 Urinary tract infection, site not specified; Z85.118 Personal history of other malignant neoplasm of bronchus and lung; Z79.899 Other long term (current) drug therapy; Z79.82 Long term (current) use of aspirin; Z79.84 Long term (current) use of oral hypoglycemic drugs; N40.0 Benign prostatic hyperplasia without lower urinary tract symptoms; F17.210 Nicotine dependence, cigarettes, uncomplicated
CPT/HCPCS: 51702; 81001; 87086; 99283

== ENCOUNTER 2025-06-23 21:51 | Emergency (ER) | payer OTHER, SELFPAY ==
[2025-06-23 21:51] VITALS: BP 172/72; PULSE 90; RESP 16; TEMP 36.6; O2SAT 97; BMI 32.3
--- NOTE | 2025-06-23 22:25 | EDS_ITS ---
HPI History of Present Illness Chief Complaint: Diego C/O Informant: patient Pain Onset: Today Narrative Narrative: Diego catheter placed today obstructed. History of BPH. Catheter placed by the [place] nurse today. Prior similar symptoms: No Recent Illness/Hospital[facility]: [facility] Medical History BPH with obstruction/lower urinary tract symptoms UTI (urinary tract infection) Leukocytosis Acute kidney injury Acute lactic acidosis Generalized weakness Diabetes High cholesterol HTN (hypertension) Smoker Prostate enlargement Lung cancer Home Medications ?Medication ?Instructions ?Recorded ?Last Taken ?Type amlodipine 10 mg tablet 10 mg PO DAILY BP 07/10/24 0 01/25/25 History aspirin 81 mg chewable tablet 81 mg PO DAILY blood thi nner 07/10/24 01/24/25 History atorvastatin 40 mg tablet 40 mg PO QHS cholesterol 01/24/25 History glipizide 10 mg tablet 5 mg PO DAILY diabetes 07/1005/22/25 History insulin glargine 100 unit/mL (3 10 unit subcut QHS margaret betes 07/10/24 01/24/25 History mL) subcutaneous pen pregabalin 75 mg capsule (Lyrica) 75 mg PO BID pain 01/25/25 History sitagliptin 25 mg tablet 25 mg PO DAILY diabetes 06/2701/25/25 History finasteride 5 mg tablet 5 mg PO DAILY #30 tabs 07/1301/25/25 Rx ferrous gluconate 324 mg (38 mg 324 mg PO QHS 01/25/25 01/24/25 History iron) tablet levofloxacin 750 mg tablet 750 mg PO DAILY #5 tabs Unknown Rx levofloxacin 750 mg tablet 750 mg PO DAILY #7 tabs Unknown Rx Allergy/AdvReac Type Severity Reaction Status Date / Time amoxicillin (From Augmentin) Allergy Hives Verified 06/23/25 21:53 clavulanic acid (From Allergy Hives Verified 06/23/25 21:53 Augmentin) lisinopril Allergy Other Verified 06/23/25 21:53 Family History Other Diabetes Surgical History H/O shoulder replacement Social History Smoking Status: Current every day smoker tobacco type: cigarettes EXAM Physical Exam Const Vital Signs: 06/23/25 21:51 Temperature 97.8 F Temperature Source Temporal Pulse Rate 90 Respiratory Rate 16 Blood Pressure 172/72 H Blood Pressure Mean 105 Pulse Ox 97 Oxygen Delivery Method Room Air Discharge Plan Triage Chief Complaint: Diego C/O ED Provider: Jacky Norman Dx/Rx/DC Orders Clinical Impression: Obstructed Diego catheter, Diabetes, History of BPH Prescriptions: No Action insulin glargine 100 unit/mL (3 mL) insulin pen 10 unit subcut QHS aspirin 81 mg tablet,chewable 81 mg PO DAILY Patient Comments: PT TAKES IN EVENING atorvastatin 40 mg tablet 40 mg PO QHS pregabalin [Lyrica] 75 mg capsule 75 mg PO BID sitagliptin 25 mg tablet 25 mg PO DAILY amlodipine 10 mg tablet 10 mg PO DAILY glipizide 10 mg tablet 5 mg PO DAILY finasteride 5 mg Tablet 5 mg PO DAILY Qty: 30 1RF ferrous gluconate 324 mg (38 mg iron) tablet 324 mg PO QHS levofloxacin 750 mg tablet 750 mg PO DAILY Qty: 5 0RF levofloxacin 750 mg tablet 750 mg PO DAILY Qty: 7 0RF [facility] [Primary Care Provider] - As Needed Activity Restrictions/Additional Instructions: If you are having any problems with your catheter [facility] Tonight just seemed to be clogged when the nurse irrigated it seems to be flowing well now. There is no signs of any bleeding. Print Language: Italian Disposition Disposition: Home, Self Care
--- NOTE | 2025-06-23 22:25 | EX.ED.GUMALE ---
HPI History of Present Illness Chief Complaint: Diego C/O Informant: patient Pain Onset: Today Narrative Narrative: Diego catheter placed today obstructed. History of BPH. Catheter placed by the [place] nurse today. Prior similar symptoms: No Recent Illness[facility]: [facility] Medical History BPH with obstruction/lower urinary tract symptoms UTI (urinary tract infection) Leukocytosis Acute kidney injury Acute lactic acidosis Generalized weakness Diabetes High cholesterol HTN (hypertension) Smoker Prostate enlargement Lung cancer Home Medications ?Medication ?Instructions ?Recorded ?Last Taken ?Type amlodipine 10 mg tablet 10 mg PO DAILY BP 07/10/24 01/25/25 History aspirin 81 mg chewable tablet 81 mg PO DAILY blood thinner 07/10/24 01/24/25 History atorvastatin 40 mg tablet 40 mg PO QHS cholesterol 07/10/24 01/24/25 History glipizide 10 mg tablet 5 mg PO DAILY diabetes 07/10/24 05/22/25 History insulin glargine 100 unit/mL (3 10 unit subcut QHS diabetes 07/10/24 01/24/25 History mL) subcutaneous pen pregabalin 75 mg capsule (Lyrica) 75 mg PO BID pain 07/10/24 01/25/25 History sitagliptin 25 mg tablet 25 mg PO DAILY diabetes 07/10/24 01/25/25 History finasteride 5 mg tablet 5 mg PO DAILY #30 tabs 07/13/24 01/25/25 Rx ferrous gluconate 324 mg (38 mg 324 mg PO QHS 01/25/25 01/24/25 History iron) tablet levofloxacin 750 mg tablet 750 mg PO DAILY #5 tabs 05/11/25 Unknown Rx levofloxacin 750 mg tablet 750 mg PO DAILY #7 tabs 05/26/25 Unknown Rx Allergy/AdvReac Type Severity Reaction Status Date / Time amoxicillin (From Augmentin) Allergy Hives Verified 06/23/25 21:53 clavulanic acid (From Allergy Hives Verified 06/23/25 21:53 Augmentin) lisinopril Allergy Other Verified 06/23/25 21:53 Family History Other Diabetes Surgical History H/O shoulder replacement Social History Smoking Status: Current every day smoker tobacco type: cigarettes ROS ROS ED ROS Narrative Denies recent illness. Constitutional Constitutional ED: Denies chills or fever(s) Eyes Eyes: Denies blurry vision or change in vision ENT ENT ED: Denies ear pain Cardiovascular Cardiovascular: Denies chest pain or palpitations Respiratory/Chest Respiratory/Chest: Denies cough, dyspnea or dyspnea on exertion Gastrointestinal Gastrointestinal: Denies abdominal pain Genitourinary Genitourinary ED: Denies dysuria or hematuria Musculoskeletal Musculoskeletal: Denies arthralgias or back pain Integumentary Denies abscess or rash Neurologic Neurologic: Denies headache(s) or paresthesias Psychiatric Psychiatric: Denies anxiety, depression or suicidal ideation Endocrine Endocrinology: Denies polydipsia, polyphagia or polyuria Hematologic/Lymphatic Hematologic/Lymphatic: Denies easy bleeding, easy bruising or lymphadenopathy Allergic/Immunologic Allergic/Immunologic ED: Denies mouth swelling, tongue swelling or urticaria EXAM Physical Exam Narrative Exam Narrative: 79-year-old male sitting upright in bed vital signs stable afebrile. H EENT exam pupils round react light. Moist mucous membranes. Neck nontender. Lungs clear to auscultation. Heart regular rhythm rate about 90 no murmur. Chest wall ribs nontender. Abdomen soft, nontender nondistended normal bowel sounds without peritoneal signs. No suprapubic tenderness. No distended bladder. Nurses already irrigated his 20 [place] Diego catheter. Is clear yellow urine nondraining. No blood or clots. Appears to be draining well now. There was sediment initially. Moving all 4 extremities. Nontender no edema. Back nontender. Neurologically he is awake alert. Answering questions following commands Const Vital Signs: 06/23/25 21:51 Temperature 97.8 F Temperature Source Temporal Pulse Rate 90 Respiratory Rate 16 Blood Pressure 172/72 H Blood Pressure Mean 105 Pulse Ox 97 Oxygen Delivery Method Room Air Positive well nourished and well developed; Negative for cachectic, contractures or unkempt General Appearance ED: well developed and NAD; Negative for unkempt, cachectic, contractures or pallor Nutritional Appearance: Negative for cachectic HEENT Reports moist mucous membranes normocephalic and atraumatic Eyes PERRL and EOMs intact bilaterally Neck no lymphadenopathy, supple and no JVD General: Negative for tenderness Resp normal respiratory effort and clear to auscultation bilaterally Cardio regular rate, regular rhythm, S1 normal heart sound, S2 normal heart sound and no murmurs Rate: Negative for bradycardia or tachycardic Rhythm: Negative for abnormal rhythm Heart Sounds: Negative for other GI non-tender, non-distended and no masses Auscultation: normoactive bowel sounds Palpation: soft; Negative for tender or guarding no CVA tenderness Bladder / Kidney Exam: No CVA tenderness Groin / Perineum Exam: Negative for edema or lesions Back/Spine no CVA tenderness General Back: Negative for CVA tenderness Cervical Spine: Negative for cervical spine tenderness Thoracic Spine / Upper Back: Negative for thoracic spinal tenderness Lumbar Spine / Lower Back: Negative for lumbar spinal tenderness Extremity normal to inspection General Extremety ED: Negative for edema, pulses abnormal or tenderness General Extremity: Negative for edema or pulses abnormal Neuro oriented x3, CN's II-XII intact bilaterally, moves all extremities and no focal motor deficits Sensorium / Orientation: alert, oriented to person, oriented to place and oriented to time Motor Exam: strength 5/5 throughout Psych mental status grossly normal Appearance: Negative for unkempt Attitude: No agitated Mood & Affect: Negative for depressed, anxious or tearful Thought Process: normal thought process Skin General Skin Exam: Negative for jaundice or pallor Lesions: no lesions Rashes: no rashes Trauma: Negative for abrasion, laceration, puncture or other MDM MDM MDM Narrative Medical decision making narrative: 79-year-old male obstructed Diego catheter was placed today at the [place]. Nurse irrigated sediment came out. There was no blood or clots. Is now running nicely with clear yellow urine. Will be discharged home with outpatient follow-up with the [place]. He knows to return if there is any Diego problems. History & Record Review Discussion w/independent historian: Patient Discharge Plan Triage Chief Complaint: Diego C/O ED Provider: Jacky Norman Dx/Rx/DC Orders Clinical Impression: Obstructed Diego catheter, Diabetes, History of BPH Prescriptions: No Action insulin glargine 100 unit/mL (3 mL) insulin pen 10 unit subcut QHS aspirin 81 mg tablet,chewable 81 mg PO DAILY Patient Comments: PT TAKES IN EVENING atorvastatin 40 mg tablet 40 mg PO QHS pregabalin [Lyrica] 75 mg capsule 75 mg PO BID sitagliptin 25 mg tablet 25 mg PO DAILY amlodipine 10 mg tablet 10 mg PO DAILY glipizide 10 mg tablet 5 mg PO DAILY finasteride 5 mg Tablet 5 mg PO DAILY Qty: 30 1RF ferrous gluconate 324 mg (38 mg iron) tablet 324 mg PO QHS levofloxacin 750 mg tablet 750 mg PO DAILY Qty: 5 0RF levofloxacin 750 mg tablet 750 mg PO DAILY Qty: 7 0RF [facility]Primary [facility] Provider] - As Needed Activity Restrictions/Additional Instructions: If you are having any problems with your catheter return [facility]. Tonight just seemed to be clogged when the nurse irrigated it seems to be flowing well now. There is no signs of any bleeding. Print Language: Slovenian Disposition Disposition: Home, Self Care
--- NOTE | 2025-06-23 22:34 | ED.RN ---
flushed patricio catheter with 30cc normal saline. scant amount of sediment noted. 7ml fluid deflated from patricio balloon, repositioned tubing and 10ml fluid returned to patricio balloon. 150ml emptied from leg bag. pt tolerated well. doctor notified.
--- OUTSIDE RECORDS SUMMARY | 2025-06-23 22:34 | XMS RPT_ITS | CCD ---
Author Organization [facility] CliniSynm Care Team Providers Care Coping Machine Assembler Name Role Phone Yolis Musa PA-C Primary [...] Zambrano MD Unavailable Heri Camarillo MD Unavailable [place] Primary Care Provider Unavailabl Dr. Rowdy Hernandez DO Attending Provider Dr. Rowdy Shearer DO Emergency Provider Dr. Greg Ruiz MD Emergency Provider Dr. Greg Ruiz MD Attending Provider KEISHA BLOCK GREASER-C, JANUARY Attending Provider [phone] KEISHA BLOCK GREASER-C, JANUARY Referring Provider [phone] Dr. Clayton Croft DO Emergency Provider [place] Primary Care Provider UnavailDr. Clayton Palmer DO Attending Provider [phone] Musat BLOCK GREASER-C, Chikis Attending Provider Musat BLOCK GREASER-C, Chikis Referring Provider [phone] MIREYA SOLIS Attending Provider [phone] [id number] MIREYA SOLIS Referring Provider [phone] [id number] MIREYA SOLIS Attending Provider [phone] [id number] MIREYA SOLIS Referring Provider [phone] [id number] Mary PETIT, Bart Santamaria Unavailable [facility] Primary Care Provider ALEC TINAJERO Attending Unavailabl e ALEC TINAJERO Attending Unavailabl e Bozena CEDEÑO, Dr. Thomas Emergency Provider [phone] Dr. William Seals DO Attending Provider [phone] Provider, Ed Physician Emergency Provider [place] Primary [facility] Provider Unavailkoby e Provider, Ed Physician Attending Provider [facility] MIREYA SOLIS Attending Provider MIREYA SOLIS Referring Provider Oscar Valencia MD Emergency Provider [phone] Chucky Mckoy Consulting Unavailable Gloriaam, Apple Mojgan Attending [facility] [place] [facility] Unavailable Kotsonis, Olman F Admitting Unavailable Kotsonis, Olman F Consulting Unavailable Jopperi, William Consulting Unavailable Koram, Apple Mojgan Consulting [facility] [place] [facility] Unavailable William Seals Attending Unavailable Greg Ruiz [facility] [place] [facility] [place] [facility] Unavailable VOSLER, MAR Referring Unavailable VOSLER, MAR Attending [facility] Un[facility] VOSLER, MAR Referring Unavailable VOSLER, MAR Attending Unavailable Musat, Chikis Referring Unavailable Musat, Chikis Attending [facility] [place] [facility] [place] [facility] Un[facility] William Seals Attending Unavailable Clayton Croft Attending [facility] [place] [facility] Unavailable Chucky Mckoy Consulting Unavailable Koram, Apple Mojgan Attending [facility] [place] [facility] Un[facility] Kotsonis, Olman F Admitting Unavailable Kotsonis, Olman F Consulting Unavailable Jopperi, William Consulting Unavailable Provider, Ed Physician Attending Unavailab [facility] [place] [facility] [place] [facility] Unavailable Oscar Valencia Attending Unavailable Franki Medina Attending [facility] [place] [facility] Un[place] Rowdy Shearer Attending [facility] [place] [facility] Un[place] Greg Ruiz Attending [facility] [place] [facility] [place] [facility] Unavailable HANS LOZANO Attending Unavailable MARTA, HANS Referring Unavailable VOSHANS ANGEOL Attending Unavailable VOSPETEY, HANS Referring [facility] [place] [facility] Unavailable VOSLER, MAR Attending Unavailable VOSLER, MAR Referring [facility] [place] [facility] Unavailable January Attending Unavailable KEISHA, JANUARY Referring [facility] [place] [facility] Unavailable Olman Mcclellan Attending Unavailable William Burciaga Attending Unavailable Allergies Allergy Classification Reported Allergen(s) Allergy Type Date of Onset Reaction(s) Facility (19 sources) Amoxicillin Drug Allergy 2 [facility] (19 sources) Clavulanate Drug Allergy 2 [facility] (20 sources) Lisinopril; Translations: [LISINOPRIL] Drug Allergy 2 Cough [facility] Work Phone: (7 sources) buPROPion Drug Allergy 2 [facility] Work [facility]: (3 sources) Insulin Glargine; Translations: [INSULIN GLARGINE] Drug Allergy 2 Rash [facility] Work Phone: (7 sources) Amoxicillin-Pot Clavulanate Propensity to adverse reactions to drug 2 Headaches, Rash, Headache [facility] (6 sources) Insulin Glargine Drug Allergy 2 Rash [facility] (6 sources) Lisinopril Propensity to adverse reactions 2 Cough [facility] (1 source) Amoxicillin Drug Allergy 5 [facility] (1 source) Clavulanate Drug Allergy 5 [facility] (1 source) Lisinopril Drug Allergy 5 [facility] Repository Medications Current Medications Medication Drug Class(es) Dates Sig (Normalized) Sig (Original) [id number] 200 actuat albuterol 0.09 mg/actuat metered dose inhaler (1 source) beta2-Adrenergic Agonist Start: 10-07-2024 albuterol HFA (PROVENTIL HFA, VENTOLIN HFA) 90 mcg/actuation inhaler Inhale as instructed. 10/07/2024 Active amLODIPine 10 mg oral tablet (20 sources) Dihydropyridine Calcium Channel Clifford Start: 07-10-2024 take 1 tablet by mouth once daily Amlodipine 10 mg tablet Active 10 mg PO DAILY July 10, 2024 12:00am BP AMLODIPINE BESYL ATE PO Take by mouth. 0 Active aspirin 81 mg chewable tablet (15 sources) Platelet Aggregation Inhibitor, Nonsteroidal Anti-inflammatory Drug Start: 07-10-2024 take 1 tablet by mouth once daily Aspirin 81 mg tablet,chewable Active 81 mg PO DAILY July 10, 2024 12:00am blood thinner Start: 09-09-2017 take 1 tablet by micheal th once daily aspirin, enteric coated (ASPIRIN, ENTERIC COATED) 81 mg EC tablet Take 81 mg by mouth once daily. 09/09/2017 Active take 1 tablet by micheal th once daily aspirin 81 MG chewable tablet Take 81 mg by mouth daily 0 Active atorvastatin 40 mg oral tablet (14 sources) HMG-CoA Reductase Inhibitor Start: 04-06-2024 take 1 tablet by mouth at bedtime Atorvastatin 40 mg tablet Active 40 mg PO AT BEDTIME July 10, 2024 12:00am cholesterol ferrous gluconate 324 mg oral tablet (20 sources) Start: 01-25-2025 take 1 tablet by [...] 2:29pm supplement finasteride 5 mg oral tablet (15 sources) 5-alpha Reductase Inhibitor Start: 07-13-2024 take 1 tablet by mouth once daily Finasteride 5 mg Tablet Active 5 mg PO DAILY 30 1 July 13, 2024 12:00am take 1 tablet by mouth in the mo rning finasteride (PROSCAR) 5 MG tablet Take 5 mg by mouth in the morning. 0 Active glipiZIDE 10 mg oral tablet (20 sources) Sulfonylurea Start: 07-10-2024 take 5 mg by mouth once daily Glipizide 10 mg tablet Active 5 mg PO DAILY July 10, 2024 12:00am diabetes Start: 07-10-2024 take 1 tablet by mouth once da anjum Glipizide 10 mg tablet Active 10 mg [...] ml insulin glargine 100 unt/ml pen injector (13 sources) Insulin Analog Start: 2023 Insulin Glargine 100 unit/mL (3 mL) insulin pen Active 10 U SC AT BEDTIME July 10, 2024 12:00am diabetes Start: 07-10-2024 Insulin Glargi ne 100 unit/mL (3 mL) insulin pen Active 14 U SC AT BEDTIME July 10, 2024 12:00am diabetes Start: 07-10-2024 Insulin Glargi ne 100 unit/mL (3 mL) insulin pen Active 16 U SC EVERY EVENING July 10, 2024 12:00am levoFLOXacin 750 mg oral tablet (4 sources) Quinolone Antimicrobial Start: 05-11-2025 take 1 tablet by mouth once daily Levofloxacin 750 mg tablet Active 750 mg PO DAILY 7 0 May 26, 2025 12:00am losartan potassium 100 mg oral tablet [...] 0 Active pregabalin 75 mg oral capsule (14 sources) Start: 07-10-2024 take 1 capsule by mouth twice daily Pregabalin (Lyrica) 75 mg capsule Active 75 mg PO TWICE A DAY July 10, 2024 12:00am pain SITagliptin 25 mg oral tablet (13 sources) Dipeptidyl Peptidase 4 Inhibitor Start: 07-10-2024 take 1 tablet by mouth once daily Sitagliptin 25 mg tablet Active 25 mg PO DAILY July 10, 2024 12:00am diabetes 24 hr tolterodine tartrate 2 mg extended release oral capsule (2 sources) Cholinergic Muscarinic Antagonist Start: 11-07-2022 End: 05-06-2023 take 1 capsule by mouth once daily tolterodine LA (Detrol LA) 2 MG 24 hr capsule Indications: Urgency of urination Take 1 capsule (2 mg) by mouth daily. Do not crush, chew, or split. 30 capsule 5 11/07/2022 05/06/2023 Active trospium chloride 20 mg oral tablet (17 sources) Cholinergic Muscarinic Antagonist Start: 09-09-2024 trospium (SANCTURA) 20 mg tablet Take 20 [...] Sig (Original) cefdinir 300 mg oral capsule (13 sources) Cephalosporin Antibacterial Start: 07-13-2024 End: 01-25-2025 take 1 capsule by mouth twice daily Cefdinir 300 mg capsule Discontinued 300 mg PO TWICE A DAY 10 July 13, 2024 12:00am January 25, 2025 12:36pm ciprofloxacin 500 mg oral tablet (20 sources) Quinolone Antimicrobial Start: 01-25-2025 End: 05-23-2025 take 1 tablet by mouth once daily Ciprofloxacin Hcl 500 mg tablet Discontinued 500 mg PO DAILY 3 3 0 May 08, 2025 9:11am May 23, 2025 9:23am Start: 09-03-2024 End: 01-25-2025 take 1 tablet by mouth twice daily Ciprofloxacin Hcl (Cipro) 500 mg tablet Discontinued 500 mg PO TWICE A DAY 14 0 September 03, 2024 1:00am January 25, 2025 12:36pm insulin, regular, human [...] mg extended release oral tablet (5 sources) beta3-Adrenerg ic Agonist Start: 11-04-2022 End: 11-04-2022 take 1 tablet by mouth once daily mirabegron ER (Myrbetriq) 25 MG 24 hr tablet Indications: Overactive Bladder Take 1 tablet (25 mg) by mouth Nightly. Do not crush, chew, or split. 90 tablet 3 11/04/2022 11/04/2022 Discontinued (Cost of medication) tamsulosin hydrochloride 0.4 mg oral capsule (15 sources) alpha-Adrenerg ic Clifford Start: 07-13-2024 End: 01-25-2025 take 1 [...] 12-07-2024 01-14-2025 Episodic Diabetes mellitus without complication (20 sources) Diabetes mellitus; Translations: [Type 2 diabetes mellitus without complications] Onset: 06-09-2022 06-09-2022 Chronic Diseases of white blood cells (13 sources) Leukocytosis; Translations: [Elevated white blood cell count, unspecified] 07-21-2024 Chronic Disorders of lipid metabolism (4 sources) Hypercholesterolemi a; Translations: [Pure hypercholesterolemi a, unspecified] 05-08-2025 Chronic Essential hypertension (20 sources) Hypertensive disorder; Translations: [Essential (primary) hypertension] Onset: 06-09-2022 06-09-2022 Chronic Fluid and electrolyte disorders (13 sources) Lactic acidosis; Translations: [Acute lactic acidosis] 07-21-2024 Episodic Genitourinary symptoms and ill-defined conditions (20 sources) Increased frequency of urination; Translations: [Frequency of micturition] Onset: 06-10-2022 06-10-2022 Episodic Hyperplasia of prostate (20 sources) Benign prostatic hypertrophy with outflow obstruction; Translations: [Benign prostatic hyperplasia with lower urinary tract symptoms] Onset: 06-10-2022 06-10-2022 Chronic Malaise and fatigue (13 sources) Asthenia; Translations: [Weakness] 07-21-2024 Episodic Other aftercare (2 sources) half-way (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; Translations: [half-way (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] Onset: 08-15-2022 Episodic [...] devices] Onset: 08-15-2022 Chronic Residual codes; unclassified (15 sources) Urinary catheter in situ; Translations: [Presence of other specified devices] 09-11-2024 Episodic Substance-related disorders (2 sources) Nicotine dependence, unspecified, uncomplicated; Translations: [Nicotine dependence, unspecified, uncomplicated] Onset: 08-15-2022 Chronic Unclassified (1 source) Other pericardial effusion (noninflammatory); Translations: [Other pericardial effusion (noninflammatory)] Onset: 08-15-2022 Unclassified (2 sources) N40.1 // N13.8 Onset: 08-22-2022 Unclassified (9 sources) with your urologist Unclassified (10 sources) for local urology evaluation Past or Other Problems Problem Classification Problem Date Documented Date Episodic/Chronic Acute and unspecified renal failure (20 sources) Acute renal failure syndrome; Translations: [Acute kidney failure, unspecified] Onset: 01-31-2025 07-21-2024 Episodic Other diseases of kidney and ureters (14 sources) Unspecified hydronephrosis; Translations: [Hydronephrosis due to [...] Test Name Value Interpretation Reference Range Facility Urine Cultureon 05-27-2025 URC Culture exhibits no growth. Normal [facility] Comment on above: Performed By: #### M [id number] #### [facility] Laboratory [address] [place], [address] Bilirubin Test strip Ql (U)O rdered By: Oscar Valencia on 05-26-2025 Bilirubin Ql (U) Negative Negative [facility] Emergency Department Summary on 05-26-2025 Emergency Department Summary [facility] Medical Records Department [address] [place] [address] Emergency Department Summary 05/26/25 MR#: [id number] Acct: [id number] Name: LORI LYNCH Rep #: [id number] : 1945 79 From: Oscar Valencia MD PCP: [facility] Status:REG ER Location: ED HPI History of Present Illness Chief Complaint: Complaint Narrative Narrative: 79-year-old male past medical history of BPH with history of obstruction presents for Diego catheter change. He relates history that he has had multiple surgeries on his prostate the last being in May of last year, almost 1 year ago. He usually has his Diego catheter exchanged every month. Recently at the [facility], they have been inserting coud??? catheters. He ends up leaking around them, and has to come to the emergency department to get it exchanged for a regular Diego catheter that is 20 British in size. He states that he had a Diego catheter changed today at the [facility] and it started leaking around the catheter again. He denies any fevers or chills, he is having bladder spasms. No hematuria. He states that this is the third time that he has had to come to the emergency department to get his straight Diego catheter. [facility] Medical History BPH with obstruction/lower urinary [...] 07/10/24 01/24/25 History glipizide 10 mg tablet 5 mg PO DAILY diabetes 07/10/24 History insulin glargine 100 unit/mL (3 10 unit subcut QHS diabetes 01/24/25 History mL) subcutaneous pen pregabalin 75 mg capsule (Lyrica) 75 mg PO BID pain 07/10/24 History sitagliptin 25 mg tablet 25 mg PO DAILY diabetes 07/10/24 0 01/25/25 History finasteride 5 mg tablet 5 mg PO DAILY #30 tabs 07/13/24 Rx ferrous gluconate 324 mg (38 mg 324 mg PO QHS 01/25/25 01/24/25 Hi story iron) tablet levofloxacin 750 mg tablet 750 mg PO DAILY #5 tabs 05/11/25 U nknown Rx levofloxacin 750 mg tablet 750 mg PO DAILY #7 tabs 05/26/25 U nknown Rx Allergy/AdvReac Type Severity Reaction Status Date / Time amoxicillin (From Augmentin) Allergy Hives Verified 05/26/25 18:23 clavulanic acid (From Allergy Hives Verified 05/26/25 18:23 Augmentin) lisinopril Allergy Other Verified 05/26/25 18:23 Family History Other Diabetes Surgical History H/O shoulder replacement Social History Smoking Status: Current every day smoker tobacco type: cigarettes ROS ROS ED ROS Narrative Positive bladder spasms. Leaking around Diego catheter. No fevers or chills. No exacerbating or alleviating factors. EXAM Physical Exam Narrative Exam Narrative: Afebrile. Vital signs noted. Nontoxic-appearing. Cardiovascular examination regular rate and rhythm. Lungs clear to auscultation bilaterally. Abdomen soft and nontender with positive bowel sounds. Visual inspection does show Diego catheter draining yellow urine, no gross hematuria. Const Vital Signs: 05/26/25 18:22 Temperature 98 F Temperature Source Oral Pulse Rate 80 Respiratory Rate 18 Blood Pressure 181/73 H Blood Pressure Mean 109 Pulse Ox 100 Oxygen Delivery Method Room Air MDM MDM MDM Narrative Medical decision making narrative: I do not feel the differential diagnosis is indicated as he is here for Diego catheter exchange. 20 British Diego catheter will be placed by RN. Additionally, he was concerned and wanted a urinalysis performed which I think is reasonable since he has indwelling Diego catheter, but I have a low suspicion for infection clinically. He may have more of a colonization. Diego catheter exchanged by RN. I reviewed his urinalysis and he does have greater than 100 WBCs with 25-50 RBCs and 3+ bacteria. He has negative for nitrites. I did review his prior ED visit and he ended up having a UTI for which he was treated with Cipro but the bacterial species was sensitive to Levaquin. He was called in a prescription for Levaquin instead so this time while urine culture was sent, he was given his first dose of Levaquin here and prescription written for the next 7 days. I feel he can be discharged to [facility] (more content not included)... Normal [facility] Ketones Test strip Ql (U)Ord ered By: Oscar Valencia on 05-26-2025 Ketones Ql (U) Negative Negative [facility] Microscopic analysis of urin e for red blood cells (RBC)Ordered By: Oscar Valencia on 05-26-2025 Microscopic analysis of urine for red blood cells (RBC) 25-50 SEEN /hpf 0-5 [facility] Mucus LM Ql (Urine sed)Order ed By: Oscar Valencia on 05-26-2025 Mucus Ql (Urine sed) 0 SEEN /hpf [facility] Nitrite Test strip Ql (U)Ord ered By: Oscar Valencia on 05-26-2025 Nitrite Ql (U) Negative Negative [facility] Protein Test strip Ql (U)Ord ered By: Oscar Valencia on 05-26-2025 Protein Ql (U) 100 mg/dl High Negative [facility] Squamous epithelial cells de tection in urine sediment by light microscopyOrdered By: Oscar Valencia on 05-26-2025 Epithelial cells.squamous LM Ql (Urine sed) 0 SEEN /hpf 0-5 [facility] Urinalysis, Completeon 05-26 BACTERIA 3+ /hpf Normal None Seen [facility] Comment on above: Order Comment: HUI TER SPECIMEN Performed By: #### L [id number] #### [facility] [address] [place], [place], [phone] (715 RBC 25-50 SEEN Normal 0-5 [facility] Comment on above: Order Comment: HUI TER SPECIMEN Performed By: #### L [id number] #### [facility] [address] [place], [address] WBC >100 SEEN Normal 0-5 [facility] Comment on above: Order Comment: HUI TER SPECIMEN Performed By: #### L [id number] #### [facility] [address] [place], [address] EPI,SQUAMOUS 0 SEEN Normal 0-5 [facility] Comment on above: Order Comment: HUI TER SPECIMEN Performed By: #### L [id number] #### [facility] [address] [place], [address] Mucus Ql (Urine sed) 0 SEEN Normal [facility] Comment on above: Order Comment: HUI TER SPECIMEN Performed By: #### L [id number] #### [facility] [address] [place], [address] Urine clarityOrdered By: Jasmin Valencia on 05-26-2025 Clarity (U) Turbid Clear [facility] Urine color determinationOrd ered By: Oscar Valencia on 05-26-2025 Color (U) Straw Yellow [facility] Urine cultureOrdered By: Jasmin Valencia on 05-26-2025 Bacteria identified Cx Nom (U) Culture exhibits no growth. [facility] Urine glucose detectionOrder ed By: Oscar Valencia on 05-26-2025 Glucose Ql (U) Normal mg/dl Normal [facility] Urine leukocyte esterase det ection by dipstickOrdered By: Oscar Valencia on 05-26-2025 Leukocyte esterase Test strip Ql (U) 500 /ul High Negative [facility] Urine pHOrdered By: Oscar rodriguez on 05-26-2025 pH (U) 6.5 [pH] 5.0 - 8.0 [facility] Urine sediment bacteria coun t by microscopy (number/high power field)Ordered By: Oscar Valencia on 05-26-2025 Bacteria LM.HPF (Urine sed) [#/Area] 3 /[HPF] None Seen [facility] Urine specific gravity measu rementOrdered By: Oscar Valencia on 05-26-2025 Specific gravity (U) [Rel density] 1.015 1.002-1.030 [facility] Urine urobilinogen measureme ntOrdered By: Oscar Valencia on 05-26-2025 Urobilinogen Ql (U) Normal mg/dl Normal [facility] White blood cell countOrdere d By: Oscar Valencia on 05-26-2025 White blood cell count >100 SEEN /hpf 0-5 [facility] Absolute lymphocyte countOrd ered By: Jemal Green on 05-23-2025 Lymphocytes Auto (Unsp spec) [#/Vol] 2.18 10*3/uL 0.83-4.51 [facility] Absolute neutrophil countOrd ered By: Jemal Green on 05-23-2025 Neutrophils (Bld) [#/Vol] 9.3 10*3/uL High 2.0-7.7 [facility] Activated partial thrombopla stin time (aPTT) in platelet poor plasma by coagulation aOrdered By: Jemal Green on 05-23-2025 aPTT Coag (PPP) [Time] 29.1 s 24.1-36.2 [facility] Automated lymphocyte count a s percentage of total leukocytesOrdered By: Jemal Green on 05-23-2025 Lymphocytes/100 WBC Auto (Unsp spec) 15.7 % Low 19-41 [facility] Basophil percentageOrdered B y: Jemal Green on 05-23-2025 Basophils/100 WBC (Bld) 0.5 % 0-1 [facility] Biopsy/Inj or Needle Placeme nton 05-23-2025 Biopsy/Inj or Needle Placement [facility] Imaging Services [address] [place], [place] [address] Biopsy/Inj or Needle Placement MR#: [id number] Acct: [id number] Name: LORI LYNCH Rep #: [id number] : 1945 M 79 From: Jemal Cueva PCP: [facility] Status: REG CLI Study: Biopsy/Inj or Needle Placement Date of Exam: 0 05/23/25 Exam# [id number] Ordering Dr: MIREYA SOLIS EXAM: CT-guided core biopsy of a left upper lobe hypermetabolic nodule CLINICAL HISTORY: Hypermetabolic left upper lobe nodule on PET-CT of 04/05/2025 COMPARISON: PET-CT of 04/05/2020. TECHNIQUE: Conscious sedation was employed for this procedure, with intravenous administration of a total of 2 mg Versed and [address]-guided core biopsy of a left upper lobe hypermetabolic pulmonary nodule was performed, with the patient in prone positioning. 2% lidocaine local anesthesia was followed by placement of a 20 gauge 15 cm [employer] core biopsy system. 4 core samples were successfully obtained. A very small pneumothorax was seen on post images. CT/Biopsy/Inj or Needle Placement IMPRESSION: Successful left upper lobe hypermetabolic nodule core biopsy. Pathology results pending. Reading Location: [place] [address] CC: MIREYA SOLIS; [facility] Insulator Apprentice: Signed Normal [facility] Blood manual differential co mment interpretation (narrative result)Ordered By: Jemal Green on 05-23-2025 Manual differential comment Ed (Bld) [Interp] COMMENT [facility] Comment on above: MONOCYTOSIS. CBC W/Diff, Automatedon 04-27 SMEAR COMMENT COMMENT Normal [facility] Comment on above: Result Comment: MONO CYTOSIS. Performed By: #### L [id number] #### [facility] [address] [place], [place], [address] Chest Insp/Exp 2 Viewon 04-27 Chest Insp/Exp [address] [facility] Imaging Services [address] [place], [place] [address] Chest Insp/Exp 2 View MR#: [id number] Acct: [id number] Name: LORI LYNCH Rep #: [id number] : 1945 M 79 From: Jemal Cueva PCP: [facility] Status: REG CLI Study: Chest Insp/Exp 2 View Date of Exam: 05/23/25 Exam# [id number] Ordering Dr: Jemal Green MD EXAM: AP portable upright inspiratory and expiratory chest CLINICAL HISTORY: 3 hour post left lung biopsy COMPARISON: Chest x-ray of earlier on 05/23/2025 TECHNIQUE: Two-view AP portable upright inspiratory and expiratory chest RAD/Chest Insp/Exp 2 View IMPRESSION: No pneumothorax is seen. Lungs appear unchanged. No pleural effusion is evident. The cardiomediastinal silhouette is stable, without evidence of cardiomegaly. No interval osseous change is noted. Reading Location: [place] [address] CC: Dr. Jemal Green MD; [facility] Insulator Apprentice: Signed Normal [facility] Chest Insp/Exp [address] [facility] Imaging Services [address] [place], [place] [id number] Chest Insp/Exp 2 View MR#: [id number] Acct: [id number] Name: LORI LYNCH Rep #: [id number] : 1945 M 79 From: Ramses gasca MD PCP: [facility] Status: REG CLI Study: Chest Insp/Exp 2 View Date of Exam: 05/23/25 Exam# [id number] Ordering Dr: Jemal Green MD EXAM: AP inspiration expiration views following left lung biopsy. CLINICAL HISTORY: Status post left lung biopsy. COMPARISON: Prior study dated March 24, 2025. TECHNIQUE: AP inspiration expiration views. FINDINGS: No evidence of pneumothorax following the biopsy. RAD/Chest Insp/Exp 2 View IMPRESSION: No evidence of pneumothorax following the biopsy. Reading Location: [id number] CC: Dr. Jemal Green MD; [facility] Insulator Apprentice: Signed Normal [facility] Eosinophil percentageOrdered By: Jemal Green on 05-23-2025 Eosinophils/100 WBC (Bld) 3.6 % 0-5 [facility] Erythrocyte distribution wid th ratioOrdered By: Jemal Green on 05-23-2025 Erythrocyte distribution width (RBC) [Ratio] 18.6 % High 11.6-14.6 [facility] Erythrocyte distribution wid th standard deviationOrdered By: Jemal Green on 05-23-2025 Erythrocyte distribution width (RBC) [Ratio] 51.5 fl High 35.1-43.9 [facility] Hematocrit Auto (Bld) [Volum e fraction]Ordered By: Jemal Green on 05-23-2025 Hematocrit (Bld) [Volume fraction] 34.8 % Low 40-54 [facility] Hemoglobin measurementOrdere d By: Jemal Green on 05-23-2025 Hemoglobin (Bld) [Mass/Vol] 11.2 g/dL Low 13.0-16.5 [facility] Immature granulocytes/100 WB C Auto (Bld)Ordered By: Jemal Green on 05-23-2025 Immature granulocytes/100 WBC (Bld) 0.700 % 0.0-0.9 [facility] Comment on above: IG% - Immature Granu locytes (promyelocytes, myelocytes and metamyelocytes) > 1% indicates that a LEFT SHIFT is Present. Immunohistochemical Stainson 05-23-2025 Immunohistochemical Stains Patient Age/Sex Location Account Attending Physician LORI LYNCH 79/M CT [id number] MIREYA SOLIS Specimen: [id number] Received: 05/23/25 Status: BLAKE [place] Num: [id number] Spec Type: ASP RAD Subm Dr: MIREYA SOLIS HEADCORINNE OPERATION: CT guided lung biopsy PRE-OP DIAGNOSIS: Left lung nodule TISSUE SUBMITTED: A- Left lung biopsy - 20 gauge x 4 cores MICROSCOPIC DIAGNOSIS A. Lung, left, nodule, CT-guided core biopsy: - Malignant neoplasm with necrosis. - Further assessment is pending IHC stains, with final diagnosis to be reported in an addendum. COMMENT The specimen is evaluated at the time of biopsy by Dr. Robin. Immediate Evaluation = 1. Malignant. 2. Adequate. MICROSCOPIC DESCRIPTION Slides are reviewed. GROSS DESCRIPTION A. Received in formalin labeled with the patient's name and date of . Designated as CT left lung biopsy are few barreto soft tissue core fragments, 0.1 cm to 0.9 cm in length by <0.1 cm in diameter. Touch preparations are made. The specimen is entirely submitted in 2 cassettes. ID 05/23/2025 CPT:[id number] ADDENDUM Addendum 1 Entered: 06/03/25 This addendum is to report the interpretation of the IHC stains. The tumor cells are: Patient Age/Sex Location Account Attending Physician LORI LYNCH 79/M CT [id number] MIREYA SOLIS ADDENDUM (Continued) Positive for pankeratin, CK7, Napsin (patchy), p40 (focal), TTF-1, CAM5.2 Negative for CK20, CK5/6, Chromogranin, Synaptophysin. 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 Correlation with clinical and imaging findings is essential. Selected slides/images were reviewed in intradepartmental consultation by Dr Elana Guerra (thoracic pathology division, [facility]) All matched controls reacted appropriately. (pankeratin, CK7, CK20, Napsin, CK5/6, p40, TTF-1, Chromogranin, Synaptophysin) These tests were developed and their performance characteristics determined by [facility]. They may not have been cleared or approved by the U.S. Food and Drug Administration. The FDA has determined that such clearance or approval is not necessary.??? The above immunohistochemical/dual [place]???markers are reviewed by the Pathologist. All controls show appropriate reactivity. (CAM5.2) All immunohistochemistry, in situ hybridization, and histochemical tests were developed by and are performed at the [facility], [address] [place] [address]. All Immunofluorescent (IF)???tests were developed by and are performed at the [facility], [address] [place] [address] ???[id number]. All tests reported here, except those addressing HER2 overexpression as a predictive marker, have not been cleared by or approved by the US Food and Drug Administration (FDA). The laboratory is regulated under CLIA as qualified to perform high-complexity testing. The tests are used for clinical purposes. They should not be regarded as investigational or for research. Addendum Signed (signature on file) Dr. Carmen Robin MD 06/03/25 [id number] Patient Age/Sex Location Account Attending Physician LORI LYNCH 79/M CT [id number] MIREYA SOLIS Signed (signature on file) Dr. Carmen Robin MD 05/26/25 1755 Normal [facility] Comment on above: Performed By: #### M 100.2200 #### [facility] [place], [address] International normalized rat io (INR) calculationOrdered By: Jemal Green on 05-23-2025 INR Coag (Bld) [Relative time] 1.1 {INR} [facility] MCV (mean corpuscular volume ) determinationOrdered By: Jemal Green on 05-23-2025 MCV (RBC) [Entitic vol] 77.9 fL Low 80-94 [facility] Mean corpuscular hemoglobin (MCH) determinationOrdered By: Jemal Green on 05-23-2025 MCH (RBC) [Entitic mass] 25.1 pg Low 27.0-32.0 [facility] Mean corpuscular hemoglobin concentration (MCHC) determinationOrdered By: Jemal Green on 05-23-2025 MCHC (RBC) [Mass/Vol] 32.2 g/dL 32-36 [facility] Mean platelet volume determi nationOrdered By: Jemal Green on 05-23-2025 Platelet mean volume (Bld) [Entitic vol] 10.9 fL 6.2-12.0 [facility] Monocyte percentageOrdered B y: Jemal Green on 05-23-2025 Monocytes/100 WBC (Bld) 12.5 % High 0-10 [facility] Neutrophil percentageOrdered By: Jemal Green on 05-23-2025 Neutrophils/100 WBC (Bld) 67.0 % 47-70 [facility] Nucleated red blood cell per centageOrdered By: Jemal Green on 05-23-2025 Nucleated RBC/100 WBC (Bld) [Ratio] 0 % 0-5 [facility] Partial Thromboplast Timeon 05-23-2025 aPTT Coag (Bld) [Time] 29.1 s Normal 24.1-36.2 [facility] Comment on above: Performed By: #### L 400.0001 #### [facility] [address] [place], [address] Platelet countOrdered By: Jean Green on 05-23-2025 Platelets (Bld) [#/Vol] 353 10*3/uL 150-450 [facility] Prothrombin Time w/INRon INR Coag (PPP) [Relative time] 1.1 {INR} Normal [facility] Comment on above: Performed By: #### L 503.6005 #### [facility] [address] [place], [address] PT Coag (PPP) [Time] 13.9 s Normal 11.7-14.9 [facility] Comment on above: Performed By: #### L 503.6005 #### [facility] [address] [place], [address] Prothrombin timeOrdered By: Jemal Green on 05-23-2025 PT Coag (PPP) [Time] 13.9 s 11.7-14.9 [facility] RBC Auto (Bld) [#/Vol]Ordere d By: Jemal Green on 05-23-2025 RBC (Bld) [#/Vol] 4.47 10*6/uL Low 4.6-6.2 [facility] Special Stain Group IIon Special Stain Group II ------- Patient Age/Sex Location Account Attending Physician LYNCHLORI JOHNSON 79/M CT [id number] MIREYA SOLIS Specimen: [id number] Received: 05/23/25 Status: BLAKE [place] Num: [id number] Spec Type: ASP RAD Subm Dr: MIREYA SOLIS HEADCORINNE OPERATION: CT guided lung biopsy PRE-OP DIAGNOSIS: Left lung nodule TISSUE SUBMITTED: A- Left lung biopsy - 20 gauge x 4 cores MICROSCOPIC DIAGNOSIS A. Lung, left, nodule, CT-guided core biopsy: - Malignant neoplasm with necrosis. - Further assessment is pending IHC stains, with final diagnosis to be reported in an addendum. COMMENT The specimen is evaluated at the time of biopsy by Dr. Robin. Immediate Evaluation = 1. Malignant. 2. Adequate. MICROSCOPIC DESCRIPTION Slides are reviewed. GROSS DESCRIPTION A. Received in formalin labeled with the patient's name and date of . Designated as CT left lung biopsy are few barreto soft tissue core fragments, 0.1 cm to 0.9 cm in length by <0.1 cm in diameter. Touch preparations are made. The specimen is entirely submitted in 2 cassettes. ID 05/23/2025 CPT:[id number] Patient Age/Sex Location Account Attending Physician LORI LYNCH 79/M CT [id number] MIREYA SOLIS Signed (signature on file) Dr. Carmen Robin MD 05/26/25 1755 Normal [facility] Comment on above: Performed By: #### M 100.8122 #### [facility] [address] [place], [place], [address] White blood cell (WBC) count Ordered By: Jemal Green on 05-23-2025 WBC (Bld) [#/Vol] 13.9 10*3/uL High 4.4-11.0 [facility] Urine Cultureon 05-11-2025 [facility] Urine Culture Urine Culture Stenotrophomonas maltophilia Crowley Count 80,000-100,000 Acinetobacter junii Acinetobacter junii Stenotrophomonas maltophilia: REACTION levoFLOXacin Islt SEGUNDO 1 S TMP SMX Islt SEGUNDO <=20 Acinetobacter junii: REACTION Ampicillin+Sulbac Islt SEGUNDO <=2 S levoFLOXacin Islt SEGUNDO <=0.12 Meropenem Islt SEGUNDO 1 S Pip+Tazo Islt SEGUNDO >=128 R TMP SMX Islt SEGUNDO <=20 S Normal [facility] Comment on above: Performed By: #### M 100.2200 #### [facility] [address] [facility] [place], [place], [id number] Hand Min 3 Viewson [address] [facility] Imaging Services [address] [place], [place] [address] Hand Min 3 Views MR#: [id number] Acct: [id number] Name: LORI LYNCH Rep #: [id number] : 1945 M 79 From: Karson Hernández MD PCP: [facility] Status: [facility] Study: Hand Min 3 Views Date of Exam: 05/09/25 Exam# [id number] Ordering Dr: Provider,Ed P. PROCEDURE: HAND MIN 3 VIEWS 05/09/2025 REASON FOR EXAM: INJURY TECHNIQUE: HAND MIN 3 VIEWS COMPARISON: No FINDINGS: Scattered hand osteoarthritis, mainly small osteophyte formation and interphalangeal joint space narrowing. No acute bone or soft tissue pathology. RAD/Hand Min 3 Views IMPRESSION: No acute injury. Reading Location[facility] CC: ED PHYSICIAN PROVIDER; [facility] Insulator Apprentice: Signed Normal [facility] Wrist min 3 Viewson 05-09-20 [address] [facility] Imaging Services [address] [place], [place] [address] Wrist min 3 Views MR#: [id number] Acct: [id number] Name: LORI LYNCH Rep #: [id number] : 1945 M 79 From: Karson Hernández MD PCP: [facility] Status: DEP ER Study: Wrist min 3 Views Date of Exam: 05/09/25 Exam# [id number] Ordering Dr: Provider,Ed P. PROCEDURE: WRIST MIN 3 VIEWS 05/09/2025 REASON FOR EXAM: INJURY TECHNIQUE: WRIST MIN 3 VIEWS COMPARISON: No FINDINGS: Mild lateral wrist osteoarthritis. Triangular fibrocartilage calcification. No acute fracture or dislocation. RAD/Wrist min 3 Views IMPRESSION: No acute injury Reading Location: [place] [address] CC: ED PHYSICIAN PROVIDER; [facility] Insulator Apprentice: Signed Normal [facility] Bilirubin Test strip Ql (U)O rdered By: William Seals on 05-08-2025 Bilirubin Ql (U) Negative Negative [facility] Emergency Department Summary on 05-08-2025 Emergency Department Summary [facility] Medical Records Department [address] [place] [address] Emergency Department Summary 05/08/25 MR#: [id number] Acct: [id number] Name: LORI LYNCH Rep #: [id number] : 1945 79 From: William Seals DO PCP: [facility] Status:DEP ER Location: ED ADDENDUM by Dr. Omari Blake DO on 05/11/25 at 1621 Urine culture results stenotrophomonas maltophilia along with actinobacter Junii both sensitive to Levaquin. He was sent home on Cipro. Nursing reached out states patient states he still has dysuria. Levaquin 750 mg sent to his pharmacy for 5 days. 05/11/25 1621 Cosigner Signature (if applicable): cc: [facility] * Signed HPI History of Present Illness Chief Complaint: Complaint Detail of Chief Complaint: Hematuria Informant: patient Pain Onset: Yesterday Context: Sudden Onset Timing: Continuous Worsened by: Nothing Relieved by: Nothing Related History Enlarged Prostate: Yes Narrative Narrative: Patient presents with hematuria that began yesterday. Patient states it began rather suddenly. Patient states it has been constant. Patient has a chronic indwelling Diego catheter. Patient had a change last week. Patient denies any dysuria. Patient denies any fevers or chills. Patient admits to some chronic back pain but denies any worsening back pain. Patient denies any nausea or vomiting. [facility] Medical History (Updated 05/08/25 @ 09:[address] William Seals, DO) BPH with obstruction/lower urinary tract symptoms UTI [...] mg PO DAILY #30 tabs 07/13/24 Rx ferrous gluconate 324 mg (38 mg 324 mg PO QHS 01/25/25 01/24/25 Hi story iron) tablet ciprofloxacin HCl 500 mg tablet 500 mg PO DAILY 3 days #3 TABLETS 05/08/25 Unknown Rx Allergy/AdvReac Type Severity Reaction Status Date / Time amoxicillin (From Augmentin) Allergy Hives Verified 05/08/25 07:13 clavulanic acid (From Allergy Hives Verified 05/08/25 07:13 Augmentin) lisinopril Allergy Other Verified 05/08/25 07:13 Family History Other Diabetes Surgical History H/O shoulder replacement Social History Smoking Status: Heavy Smoker (>10/day) ROS ROS ED Constitutional Constitutional ED: Denies chills or fever(s) Eyes Eyes: Denies blurry vision or change in vision ENT ENT ED: Denies rhinorrhea or sore throat Cardiovascular Cardiovascular: Denies chest pain or palpitations Respiratory/Chest Respiratory/Chest: Denies cough or dyspnea Gastrointestinal Gastrointestinal: Denies nausea or vomiting Genitourinary Genitourinary ED: Reports hematuria; Denies dysuria Musculoskeletal Musculoskeletal: Reports back pain; Denies neck pain Integumentary Denies abscess or rash Neurologic Neurologic: Denies headache(s) or weakness Allergic/Immunologic Allergic/Immunologic ED: Denies mouth swelling or urticaria EXAM Physical Exam Const Vital Signs: 05/08/25 07:11 Temperature 98.3 F Temperature Source Oral Pulse Rate 103 H Respiratory Rate 20 H Blood Pressure 173/76 H Blood Pressure Mean 108 Pulse Ox 97 Oxygen Delivery Method Room Air Positive well nourished and well developed Constitutional Narrative: BMI is 33.1. General Appearance ED: well developed and NAD HEENT Reports moist mucous membranes normocephalic and atraumatic Neck supple and no JVD Resp normal respiratory effort and clear to auscultation bilaterally Cardio regular rate and regular rhythm GI non-tender and non-distended Palpation: soft Narrative: There is bloody urine in the Diego catheter bag. Neuro oriented x3, CN's II-XII intact bilaterally, moves all extremities, no focal motor deficits and no sensory deficits noted Sensorium / (more content not included)... Normal [facility] Ketones Test strip Ql (U)Ord ered By: William Seals on 05-08-2025 Ketones Ql (U) Negative Negative [facility] Microscopic analysis of urin e for red blood cells (RBC)Ordered By: William Seals on 05-08-2025 Microscopic analysis of urine for red blood cells (RBC) > 100 SEEN /hpf 0-5 [facility] Mucus LM Ql (Urine sed)Order ed By: William Seals on 05-08-2025 Mucus Ql (Urine sed) 0 SEEN /hpf [facility] Nitrite Test strip Ql (U)Ord ered By: William Seals on 07-13-2025 Nitrite Ql (U) Negative Negative [facility] Protein Test strip Ql (U)Ord ered By: William Seals on 05-08-2025 Protein Ql (U) 100 mg/dl High Negative [facility] Squamous epithelial cells de tection in urine sediment by light microscopyOrdered By: William Seals on 05-08-2025 Epithelial cells.squamous LM Ql (Urine sed) 0 SEEN /hpf 0-5 [facility] Urinalysis, Completeon 05-08 RBC > 100 SEEN Normal 0-5 [facility] Comment on above: Order Comment: CLEAN CATCH Performed By: #### M 100.2200 #### [facility] [address] [place], [address] WBC >100 SEEN Normal [address] [place] [address] Comment on above: Order Comment: CLEAN CATCH Performed By: #### M 100.2200 #### [facility] [address] [place], [address] BACTERIA 0 SEEN Normal None Seen [facility] Comment on above: Order Comment: CLEAN CATCH Performed By: #### M 100.2200 #### [facility] [address] [place], [address] EPI,SQUAMOUS 0 SEEN Normal [address] [place] [address] Comment on above: Order Comment: CLEAN CATCH Performed By: #### M 100.2200 #### [facility] [address] [place], [address] Mucus Ql (Urine sed) 0 SEEN Normal [facility] Comment on above: Order Comment: CLEAN CATCH Performed By: #### M 100.2200 #### [facility] [address] [place], [address] Urine clarityOrdered By: Divina Seals on 05-08-2025 Clarity (U) Cloudy Clear [facility] Urine color determinationOrd ered By: William Seals on 05-08-2025 Color (U) Yellow Yellow [facility] Urine cultureOrdered By: Divina Seals on 05-08-2025 Bacteria identified Cx Nom (U) Stenotrophomonas maltophilia Abnormal [facility] Bacteria identified Cx Nom (U) Acinetobacter junii Abnormal [facility] Urine glucose detectionOrder ed By: William Seals on 05-08-2025 Glucose Ql (U) 100 mg/dl High Normal [facility] Urine leukocyte esterase det ection by dipstickOrdered By: William Seals on 05-08-2025 Leukocyte esterase Test strip Ql (U) 500 /ul High Negative [facility] Urine pHOrdered By: William alvarez on 05-08-2025 pH (U) 6.5 [pH] 5.0 - 8.0 [facility] Urine sediment bacteria coun t by microscopy (number/high power field)Ordered By: William Seals on 05-08-2025 Bacteria LM.HPF (Urine sed) [#/Area] 0 /[HPF] None Seen [facility] Urine specific gravity measu rementOrdered By: William Seals on 05-08-2025 Specific gravity (U) [Rel density] 1.010 1.002-1.030 [facility] Urine urobilinogen measureme ntOrdered By: William Seals on 05-08-2025 Urobilinogen Ql (U) Normal mg/dl Normal [facility] White blood cell countOrdere d By: William Seals on 05-08-2025 White blood cell count >100 SEEN /hpf 0-5 [facility] Emergency Department Summary on 04-29-2025 Emergency Department Summary [facility] Medical Records Department [address] [place] [address] Emergency Department Summary 04/29/25 MR#: [id number] Acct: [id number] Name: LORI LYNCH Rep #: [id number] : 1945 79 From: William Seals DO PCP: [facility] Status:DEP ER Location: ED HPI History of Present Illness Chief Complaint: Complaint Narrative Narrative: 79-year-old male was in our emergency department earlier today because his Diego catheter was leaking. It was routinely changed at [facility] yesterday. He has it for BPH. Earlier today the nurse irrigated it and readjusted it and it seemed to be draining properly but after he got home he stopped leaking around the penis again. [facility] Medical History BPH with obstruction/lower urinary [...] 98 95 Oxygen Delivery Method Room Air [facility] Treatment and Re-Evaluation Narrative: I have personally [...] Patient stat (more content not included)... Normal [facility] Emergency Department Summary [facility] Medical Records Department [address] [place] [address] Emergency Department Summary 04/29/25 MR#: [id number] Acct: [id number] Name: LORI LYNCH Rep #: [id number] : 1945 79 From: Chikis ROBERTSON PCP: [facility] Status:REG ER Location: ED HPI History of Present Illness Chief Complaint: Complaint Narrative Narrative: 79-year-old male has BPH and chronic indwelling Diego June 2024. He saw his urologist at the [facility] yesterday and had a routine catheter change. Since then urine has been leaking from around the tube and his penis is only partially draining in the bag. He has no pain. No hematuria or clots. [facility] Medical History BPH with obstruction/lower urinary [...] rebound, nondistended. : Normal external genitalia. [address]. There is urine [...] making narrative: 79-year-old male with a 20 [place] catheter is leaking since it was [...] include: Hist (more content not included)... Normal [facility] CNOVon 04-22-2025 CNOV Office Visit (AKURFFaina ) -------- LORI LYNCH ([id number]) 1945 M Date Time Provider Department 04/22/25 8:30 AM ALEC TINAJERO During your visit today, we recorded the following information about you: Alec Tinajero MD 04/22/2025 8:38 AM Signed ESTABLISHED PATIENT OFFICE VISIT Wildlife Policy Professional present: Nina Sexton MA PATIENT INFO: Lori [...] 2024 patient went into retention and the [facility] has been changing the catheter monthly since then He saw urology at the [facility] and they talked him about getting [facility] tube at the [facility] in [place] but he wants to come to [place] as it is closer to [place] where he lives Has had catheter change in [place] Had a aqua ablation in the past [...] him to get disc with films from [place] where he had them and see me [...] operatively. I (more content not included)... Normal [facility] PET/CT Tumor Base -Thigh Sub son 04-05-2025 PET/CT Tumor Base -Thigh Subs [facility] Imaging Services [address] [place] [address] PET/CT Tumor Base -Thigh Subs MR#: [id number] Acct: [id number] Name: LYNCHLORI Shamar Rep #: [id number] : 1945 M 79 From: Jemal ROSADO: [facility] Status: REG CLI Study: PET/CT Tumor Base -Thigh Subs Date of Exam: Exam# [id number] Ordering Dr: MIREYA SOLIS PROCEDURE: PET/CT TUMOR [...] of the mouth and larynx/vocal cords, heart, imlady (many normal individuals have hilar uptake in [...] PET will be reported separately. Reading Location: [address] CC: MIREYA SOLIS; [facility] Insulator Apprentice: Signed Normal [facility] Positron emission tomography scan reportOrdered By: Jemal Green on 04-05-[address] body region [facility] Imaging Services [address] [place] [address] PET/CT Tumor Base -Thigh Subs MR#: [id number] Acct: [id number] Name: LORI LYNCH Rep #: [id number] : 1945 M 79 From: [place] Green MD PCP: [facility] Status: REG CLI Study:PET/CT Tumor Base -Thigh Subs Date of E xam: 04/05/25 Exam# [id number] Ordering Dr: MIREYA LAWSON PROCEDURE: PET/CT TUMOR [...] PET will be reported separately. Reading Location: [address] CC: MIREYA SOLIS; [facility] [facility] ~ Insulator Apprentice: Signed [facility] Chest PA and Lateralon 03-[address] [facility] Imaging Services [address] [place] [address] Chest PA and Lateral MR#: [id number] Acct: [id number] Name: LORI LYNCH Rep #: [id number] : 1945 M 79 From: Zarina Edouard nd, MD PCP: [facility] Status: REG CLI Study: Chest PA and Lateral Date of Exam: 03/24/25 Exam# [id number] Ordering Dr: Chikis Hernandez BLOCK GREASER-C PROCEDURE: CHEST PA AND LATERAL 03/24/2025 REASON [...] not well-visualized by radiographic imaging. 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 As applicable, any other physician, advance practice provider, medical student, or other health professional student that will be observing or involved in the sensitive examination for educational or training purposes was discussed with the Patient or Authorized Barrel Liner. The Patient or Authorized Barrel Liner has agreed to proceed with the sensitive examination. (Sensitive examination includes inspection and/or palpation of the breasts, pelvis, prostate and anorectal regions) Risk/Benefit Discussion: Cystoscopy I explained the options concerning cystoscopy I did tell the patient about various alternatives and why cystoscopy was indicated in this particular circumstance. I advised the patient about the possi (more content not included)... Normal [facility] Emergency Department Summary on 03-02-2025 Emergency Department Summary [facility] Medical Records Department [address] [place] [address] Emergency Department Summary 03/02/25 MR#: [id number] Acct: [id number] Name: LORI LYNCH Rep #: [id number] : 1945 79 From: Clayton Croft DO PCP: [facility] Status[facility] ER Location: ED HPI History of Present [...] before. He notes currently has a 20 [place]. He notes a history of BPH he takes finasteride. He states that this is not the first time he is come to emergency because of a leaking Diego catheter. He notes no change in the urine. No fevers no chills. He states that last time it was leaking because the balloon was in my prostate. [facility] Medical History BPH with obstruction/lower urinary [...] findings. There (more content not included)... Normal [facility] CBC W/Diff, Automatedon 01-26 PATH REV Reviewed Normal [facility] Comment on above: Result Comment: SEE REPORT IN PATIENT'S EMR AMENDED REPORT 02/14/25 1606 PATH REV previously reported as: February yung Performed By: #### M 100.2200 #### [facility] Laboratory [address] [place], [address] Culture, Blood (WB)on 2024 CUB Blood cultures x2, f rom two different sites No growth in 5 days. Normal [facility] Comment on above: Performed By: #### M 200.1000 #### [facility] Laboratory [address] [facility] [place], [place], [id number] Urine Cultureon 01-27-2025 [facility] Hafnia alvei Crowley Count 80,000-100,000 Hafnia alvei: REACTION Ampicillin Islt SEGUNDO Ampicillin+Sulbac Islt SEGUNDO >=32 R cefTRIAXone Islt SEGUNDO 1 S Ciprofloxacin Islt SEGNUDO <=0.06 S Gentamicin Islt SEGUNDO <=1 S levoFLOXacin Islt SEGUNDO <=0.12 S Meropenem Islt SEGUNDO <=0.25 S Nitrofurantoin Islt SEGUNDO <=16 S Pip+Tazo Islt SEGUNDO 16 I TMP SMX Islt SEGUNDO <=20 S Normal [facility] Comment on above: Performed By: #### M 100.2200 #### [facility] Laboratory [address] [facility] [address] [place], [place], [id number] Abdomen/Pelvis without Conto n 01-25-2025 Abdomen/Pelvis without Cont [facility] Imaging Services [address] [place], [place] [address] Abdomen/Pelvis without Cont MR#: [id number] Acct: [id number] Name: LORI LYNCH Rep #: [id number] : 1945 M 79 From: Ramses gasca MD PCP: [facility] Status: REG ER Study: Abdomen/Pelvis without Cont Date of Exam: 11/20 Exam# [id number] Ordering Dr: Greg Ruiz MD PROCEDURE: ABDOMEN/PELVIS [...] seen within the prostatic urethra. Reading Location: [facility] CC: Dr. Greg Ruiz MD; [facility] Insulator Apprentice: Signed Normal [facility] Absolute lymphocyte countOrd ered By: Greg Ruiz on 01-25-2025 Lymphocytes Auto (Unsp spec) [#/Vol] 1.67 10*3/uL 0.83-4.51 [facility] Absolute neutrophil countOrd ered By: Greg Ruiz on 01-25-2025 Neutrophils (Bld) [#/Vol] 13.0 10*3/uL High 2.0-7.7 [facility] Anion gap in Serum or Plasma Ordered By: Greg Ruiz on 01-25-2025 Anion gap [Moles/Vol] 14 mmol/L 5-15 [facility] Automated lymphocyte count a s percentage of total leukocytesOrdered By: Greg Ruiz on 01-25-2025 Lymphocytes/100 WBC Auto (Unsp spec) 9.4 % Low 19-41 [facility] BUN/creatinine ratioOrdered By: Greg Ruiz on 01-25-2025 Urea nitrogen/Creatinine [Mass ratio] 14.9 mg/mg 10- [facility] Basic Metabolic Profile (BMP )on 01-25-2025 BUN/CRE 14.9 RATIO Normal - [facility] Comment on above: Performed By: #### M 100.2200 #### [facility] Laboratory [address] [place], [address] Calcium [Mass/Vol] 8.5 mg/dL Normal 7.6-11.0 [facility] Comment on above: Performed By: #### M 100.2200 #### [facility] Laboratory [address] [place], [address] Chloride [Moles/Vol] 106 mmol/L Normal 98-108 [facility] Comment on above: Performed By: #### M 100.2200 #### [facility] Laboratory [address] [place], [address] CO2 [Moles/Vol] 17.5 mmol/L Low 21.0-32.0 [facility] Comment on above: Performed By: #### M 100.2200 #### [facility] Laboratory [address] [place], [address] Creatinine [Mass/Vol] 3.33 mg/dL High 0.70-1.20 [facility] Comment on above: Performed By: #### M 100.2200 #### [facility] Laboratory [address] [place], [address] ECRCL 20.35 ml/min Low 50-250 [facility] Comment on above: Performed By: #### M 100.2200 #### [facility] Laboratory [address] [place], [address] GAP 14 Normal 5-15 [facility] Comment on above: Performed By: #### M 100.2200 #### [facility] Laboratory [address] [place], [address] GFR/1.73 sq M.predicted among non-blacks MDRD (S/P/Bld) [Vol rate/Area] 18 mL/min/{1.73_m2} Low >60 [facility] Comment on above: Result Comment: mL/m in/1.73m2 CKD-EPI Creatinine Equation (2020) Performed By: #### M 100.2200 #### [facility] Laboratory [address] [place], [address] Glucose [Mass/Vol] 247 mg/dL High 70-99 [facility] Comment on above: Performed By: #### M 100.2200 #### [facility] [address] [place], [address] Potassium [Moles/Vol] 4.4 mmol/L Normal 3.3-5.1 [facility] Comment on above: Performed By: #### M 100.2200 #### [facility] [address] [place], [address] Sodium [Moles/Vol] 137 mmol/L Normal 133-145 [facility] Comment on above: Performed By: #### M 100.2200 #### [facility] [address] [place], [address] Urea nitrogen [Mass/Vol] 50 mg/dL High 4-19 [facility] Comment on above: Performed By: #### M 100.2200 #### [facility] Laboratory [address] [place], [address] Basophil percentageOrdered B y: rGeg Ruiz on 01-25-2025 Basophils/100 WBC (Bld) 0.4 % 0-1 [facility] Bilirubin Test strip Ql (U)O rdered By: Greg Ruiz on 01-25-2025 Bilirubin Ql (U) Negative Negative [facility] Blood cultureOrdered By: Maya Ruiz on 01-25-2025 Bacteria identified Cx Nom (Bld) No growth in 5 days. [facility] Bacteria identified Cx Nom (Bld) No growth in 5 days. [facility] Blood manual differential co mment interpretation (narrative result)Ordered By: Greg Ruiz on 01-25-2025 Manual differential comment Ed (Bld) [Interp] SCANNED [facility] Comment on above: MONOCYTOSIS NOTED Carbon dioxide, total [Moles /volume] in Central venous bloodOrdered By: Greg Ruiz on 01-25-2025 CO2 [Moles/Vol] 17.5 mmol/L Low 21.0-32.0 [facility] Chloride assayOrdered By: Aydee Ruiz on 01-25-2025 Chloride [Moles/Vol] 106 mmol/L 98-108 [facility] Emergency Department Summary on 01-25-2025 Emergency Department Summary [facility] Medical Records Department [address] [place] [address] Emergency Department Summary 01/25/25 MR#: [id number] Acct: [id number] Name: LORI YLNCH Rep #: [id number] : 1945 79 From: Greg Ruiz MD PCP: [facility] Hospital Status:REG ER Location: ED HPI History [...] is concerned he may have a UTI. [facility] Medical History BPH with obstruction/lower urinary [...] yellow nonbl (more content not included)... Normal [facility] Eosinophil percentageOrdered By: Greg Ruiz on 01-25-2025 Eosinophils/100 WBC (Bld) 1.0 % 0-5 [facility] Epithelial cells.squamous LM Ql (Urine sed)Ordered By: Greg Ruiz on 01-25-2025 Epithelial cells.squamous LM.HPF (Urine sed) [#/Area] 0 /[HPF] 0-5 [facility] Erythrocyte distribution wid th ratioOrdered By: Greg Ruiz on 01-25-2025 Erythrocyte distribution width (RBC) [Ratio] 19.1 % High 11.6-14.6 [facility] Erythrocyte distribution wid th standard deviationOrdered By: Greg Ruiz on 01-25-2025 Erythrocyte distribution width (RBC) [Entitic vol] 51.0 fL High 35.1-43.9 [facility] Erythrocyte distribution width (RBC) [Ratio] 51.0 fl High 35.1-43.9 [facility] Estimation of creatinine alexis aranceOrdered By: Greg Ruiz on 01-25-2025 Estimated Creatinine Clearance Calc 20.35 ml/min Low 50-250 [facility] GFR/1.73 sq M.predicted pranav g non-blacks MDRD (S/P/Bld) [Vol rate/Area]Ordered By: Greg Ruiz on 01-25-2025 Estimated GFR (MDRD) Non-Af Amer 18 Low >60 [facility] Comment on above: mL/min/1.73m2 CKD-EP I Creatinine Equation (2020) Glomerular filtration rate ( GFR) estimation/1.73 sq m using serum, plasma, or whole bOrdered By: Greg Ruiz on 01-25-2025 GFR/1.73 sq M.predicted among non-blacks MDRD (S/P/Bld) [Vol rate/Area] 18 mL/min/{1.73_m2} Low >60 [facility] Comment on above: mL/min/1.73m2 CKD-EP I Creatinine Equation (2020) Glucose Ql (U)Ordered By: Aydee Ruiz on 01-25-2025 Glucose (U) [Mass/Vol] 100 mg/dL High Normal [facility] Hematocrit Auto (Bld) [Volum e fraction]Ordered By: Greg Ruiz on 01-25-2025 Hematocrit (Bld) [Volume fraction] 34.0 % Low 40-54 [facility] Hemoglobin measurementOrdere d By: Greg Ruiz on 01-25-2025 Hemoglobin (Bld) [Mass/Vol] 10.9 g/dL Low 13.0-16.5 [facility] Immature granulocytes/100 WB C Auto (Bld)Ordered By: Greg Ruiz on 01-25-2025 Immature granulocytes/100 WBC (Bld) 0.800 % 0.0-0.9 [facility] Comment on above: IG% - Immature Granu locytes (promyelocytes, myelocytes and metamyelocytes) > 1% indicates that a LEFT SHIFT is Present. Ketones Test strip Ql (U)Ord ered By: Greg Ruiz on 01-25-2025 Ketones Ql (U) Negative Negative [facility] Lactic Acidon 01-25-2025 Lactate [Moles/Vol] 1.4 mmol/L Normal 0.0-2.0 [facility] Comment on above: Order Comment: Y Performed By: #### M 100.2200 #### [facility] Laboratory [address] [place] [address], [id number] Lactic acid measurementOrder ed By: Greg Ruiz on 01-25-2025 Lactate [Moles/Vol] 1.4 mmol/L 0.0-2.0 [facility] Lymphocytes Auto (Unsp spec) [#/Vol]Ordered By: Greg Ruiz on 01-25-2025 Lymphocytes (Bld) [#/Vol] 1.67 10*3/uL 0.83-4.51 [facility] Lymphocytes/100 WBC Auto (Un sp spec)Ordered By: Greg Ruiz on 01-25-2025 Lymphocytes/100 WBC (Bld) 9.4 % Low 19-41 [facility] MCV (mean corpuscular volume ) determinationOrdered By: Greg Ruiz on 01-25-2025 MCV (RBC) [Entitic vol] 74.9 fL Low 80-94 [facility] Manual differential comment Ed (Bld) [Interp]Ordered By: Greg Ruiz on 01-25-2025 Differential Comment SCANNED [facility] Comment on above: MONOCYTOSIS NOTED Mean corpuscular hemoglobin (MCH) determinationOrdered By: Greg Ruiz on 01-25-2025 MCH (RBC) [Entitic mass] 24.0 pg Low 27.0-32.0 [facility] Mean corpuscular hemoglobin concentration (MCHC) determinationOrdered By: Greg Ruiz on 01-25-2025 MCHC (RBC) [Mass/Vol] 32.1 g/dL 32-36 [facility] Mean platelet volume determi nationOrdered By: Greg Ruiz on 01-25-2025 Platelet mean volume (Bld) [Entitic vol] 10.8 fL 6.2-12.0 [facility] Microscopic analysis of urin e for red blood cells (RBC)Ordered By: Greg Ruiz on 01-25-2025 Microscopic analysis of urine for red blood cells (RBC) 25-50 SEEN /hpf 0-5 [facility] Urine RBC 25-50 SEEN /hpf 0-5 [facility] Monocyte percentageOrdered B y: Greg Ruiz on 01-25-2025 Monocytes/100 WBC (Bld) 15.4 % High 0-10 [facility] Mucus LM Ql (Urine sed)Order ed By: Greg Ruiz on 01-25-2025 Mucus Ql (Urine sed) 0 SEEN /hpf [facility] Neutrophil percentageOrdered By: Greg Ruiz on 01-25-2025 Neutrophils/100 WBC (Bld) 73.0 % High 47-70 [facility] Nitrite Test strip Ql (U)Ord ered By: Greg Ruiz on 01-25-2025 Nitrite Ql (U) Negative Negative [facility] Nucleated red blood cell per centageOrdered By: Greg Ruiz on 01-25-2025 Nucleated RBC/100 WBC (Bld) [Ratio] 0 % 0-5 [facility] Pathologist review Ed (Unsp spec) [Interp]Ordered By: Greg Ruiz on 01-25-2025 Differential Pathologist's Review May foll [facility] Platelet countOrdered By: Aydee Ruiz on 01-25-2025 Platelets (Bld) [#/Vol] 228 10*3/uL 150-450 [facility] Potassium (Unsp spec) [Mass/ Vol]Ordered By: Greg Ruiz on 01-25-2025 Potassium [Moles/Vol] 4.4 mmol/L 3.3-5.1 [facility] Potassium measurement (mass/ volume)Ordered By: Greg Ruiz on 01-25-2025 Potassium (Unsp spec) [Mass/Vol] 4.4 mmol/L 3.3-5.1 [facility] Protein Test strip Ql (U)Ord ered By: Greg Ruiz on 01-25-2025 Protein Ql (U) 100 mg/dl High Negative [facility] RBC Auto (Bld) [#/Vol]Ordere d By: Greg Ruiz on 01-25-2025 RBC (Bld) [#/Vol] 4.54 10*6/uL Low 4.6-6.2 [facility] Review by pathologistOrdered By: Greg Ruiz on 01-25-2025 Pathologist review Ed (Unsp spec) [Interp] Reviewed [facility] Comment on above: Previous reported re sult: [...] 01-25-2025 Creatinine [Mass/Vol] 3.33 mg/dL High 0.70-1.20 [facility] Serum glucose measurement (m ass/volume)Ordered By: Greg Ruiz on 01-25-2025 Glucose [Mass/Vol] 247 mg/dL High 70-99 [facility] Serum or plasma calcium angle urement (mass/volume)Ordered By: Greg Ruiz on 01-25-2025 Calcium [Mass/Vol] 8.5 mg/dL 7.6-11.0 [facility] Serum or plasma urea nitroge n measurement (mass/volume)Ordered By: Greg Ruiz on 01-25-2025 Urea nitrogen [Mass/Vol] 50 mg/dL High 4-19 [facility] Sodium levelOrdered By: Km Ruiz on 01-25-2025 Sodium [Moles/Vol] 137 mmol/L 133-145 [facility] Squamous epithelial cells de tection in urine sediment by light microscopyOrdered By: Greg Ruiz on 01-25-2025 Epithelial cells.squamous LM Ql (Urine sed) 0-5 SEEN /hpf 0-5 [facility] Urinalysis, Completeon 01-25 EPI,SQUAMOUS 0-5 SEEN Normal 0-5 [facility] Comment on above: Order Comment: HUI TER SPECIMEN Performed By: #### L 400.0001 #### [facility] Laboratory [address] [facility] [address] BACTERIA 1+ /hpf Normal None Seen [facility] Comment on above: Order Comment: HUI TER SPECIMEN Performed By: #### L 400.0001 #### [facility] [address] [facility] [address] RBC 25-50 SEEN Normal 0-5 [facility] Comment on above: Order Comment: HUI TER SPECIMEN Performed By: #### L 400.0001 #### [facility] [address] [facility] [address] WBC >100 SEEN Normal 0-5 [facility] Comment on above: Order Comment: HUI TER SPECIMEN Performed By: #### L 400.0001 #### [facility] [address] [place], [address] Mucus Ql (Urine sed) 0 SEEN Normal [facility] Comment on above: Order Comment: HUI TER SPECIMEN Performed By: #### L 400.0001 #### [facility] [address] [facility] [address] Urine blood detectionOrdered By: Greg Ruiz on 01-25-2025 Urine Occult Blood 250 /ul High Negative [facility] Urine clarityOrdered By: Maya Ruiz on 01-25-2025 Clarity (U) Turbid Clear [facility] Urine color determinationOrd ered By: Greg Ruiz on 01-25-2025 Color (U) Straw Yellow [facility] Urine cultureOrdered By: Maya Ruiz on 01-25-2025 Bacteria identified Cx Nom (U) Hafnia alvei Abnormal [facility] Urine glucose detectionOrder ed By: Greg Ruiz on 01-25-2025 Glucose Ql (U) 100 mg/dl High Normal [facility] Urine leukocyte esterase det ection by dipstickOrdered By: Greg Ruiz on 01-25-2025 Leukocyte esterase Test strip Ql (U) 500 /ul High Negative [facility] Urine pHOrdered By: Greg Ruiz on 01-25-2025 pH (U) 6.0 [pH] 5.0 - 8.0 [facility] Urine sediment bacteria coun t by microscopy (number/high power field)Ordered By: Greg Ruiz on 01-25-2025 Bacteria LM.HPF (Urine sed) [#/Area] 1 /[HPF] None Seen [facility] Urine specific gravity measu rementOrdered By: Greg Ruiz on 01-25-2025 Specific gravity (U) [Rel density] 1.010 1.002-1.030 [facility] Urine urobilinogen measureme ntOrdered By: Greg Ruiz on 01-25-2025 Urobilinogen Ql (U) Normal mg/dl Normal [facility] Urobilinogen Ql (U)Ordered B y: Greg Ruiz on 01-25-2025 Urine Urobilinogen Normal mg/dl Normal [facility] White blood cell (WBC) count Ordered By: Greg Ruiz on 01-25-2025 WBC (Bld) [#/Vol] 17.8 10*3/uL High 4.4-11.0 [facility] White blood cell countOrdere d By: Greg Ruiz on 01-25-2025 Urine WBC >100 SEEN /hpf 0-5 [facility] White blood cell count >100 SEEN /hpf 0-5 [facility] Renal Scan w/ Pharm Interven ton 01-21-2025 Renal Scan w/ Pharm Intervent [facility] Imaging Services [address] [place] [address] Renal Scan w/ Pharm Intervent MR#: [id number] Acct: [id number] Name: LORI LYNCH Rep #: [id number] : 1945 M 79 From: Ramses gasca MD PCP: [facility] Status: REG CLI Study: Renal Scan w/ Pharm Intervent Date of Exam: Exam# [id number] Ordering Dr: PALLAVI VALDES PROCEDURE: RENAL SCAN W/ PHARM INTERVENT [...] with the injection of Lasix. Reading Location: [facility] CC[facility]rentice: Signed Normal [facility] Emergency Department Summary on 01-14-2025 Emergency Department Summary [facility] Medical Records Department [address] [place] [address] Emergency Department Summary 01/14/25 MR#: [id number] Acct: [id number] Name: LORI LYNCH Rep #: [id number] : 1945 79 From: Greg Ruiz MD PCP: [place] Hospital Status:REG ER Location: ED HPI History [...] thinks that is why it is leaking. [facility] Medical History BPH with obstruction/lower urinary [...] mg t (more content not included)... Normal [facility] Emergency Department Summary on 11-13-2024 Emergency Department Summary [facility] Medical Records Department [address] [place] [address] Emergency Department Summary 11/13/24 MR#: [id number] Acct: [id number] Name: LORI LYNCH Rep #: [id number] : 1945 79 From: Rowdy Shearer DO PCP: [facility] Status:[facility] ER Location: ED HPI History of Present [...] a catheter replaced he presents for evaluation [facility] Medical History BPH with obstruction/lower urinary [...] Exam: Negat (more content not included)... Normal [facility] CBC W/Diff, Automatedon 08-27 PATH REV Reviewed Normal [facility] Comment on above: Result Comment: Leuk ocytosis. Microcytic anemia. Clinical correlation necessary. Trent Corea M.D. 09/06/24 AMENDED REPORT 09/06/24 1421 PATH REV previously reported as: February Performed By: #### L 400.0001 #### [facility] Laboratory [address] [place], [place], [address] Culture, Blood (WB)on 2023 CUB Blood cultures x2, f rom two different sites No growth in 5 days. Normal [facility] Comment on above: Performed By: #### M 100.2200 #### [facility] [address] [place], [place], [address] Urine Cultureon 09-05-2024 [facility] Escherichia coli Crowley Count >100,000 Escherichia coli: REACTION Ampicillin Islt [...] TMP SMX Islt SEGUNDO <=20 S Normal [facility] Comment on above: Performed By: #### M 100.2200 #### [facility] [address] [place], [address] URC Escherichia coli Crowley Count >100,000 Escherichia coli: REACTION Ampicillin Islt [...] TMP SMX Islt SEGUNDO <=20 S Normal [facility] Comment on above: Performed By: #### M 100.2200 #### [facility] [address] [place], [address] [facility] Metabolic [facility] 09-03-2024 Albumin [Mass/Vol] 2.8 g/dL Low 3.2-5.0 [facility] Comment on above: Performed By: #### L 400.0001 #### [facility] [address] [place], [address] Albumin/Globulin [Mass ratio] 0.7 {ratio} Low 0.9-2.4 [facility] Comment on above: Performed By: #### L 400.0001 #### [facility] [address] [place], [address] ALK P 109 U/L Normal 45-117 [facility] Comment on above: Performed By: #### L 400.0001 #### [facility] [address] [place], [address] ALT [Catalytic activity/Vol] 10 U/L Low 16-61 [facility] Comment on above: Performed By: #### L 400.0001 #### [facility] [address] [place], [address] AST [Catalytic activity/Vol] 16 U/L Normal 15-37 [facility] Comment on above: Performed By: #### L 400.0001 #### [facility] [address] [place], [address] Bilirubin [Mass/Vol] 0.30 mg/dL Normal 0.20-1.00 [facility] Comment on above: Result Comment: For patients on eltrombopag therapy, use of Dimension [place] TBIL is not recommended. Performed By: #### L 400.0001 #### [facility] [address] [place], [address] BUN/CRE 17.1 RATIO Normal 10-20 [facility] Comment on above: Performed By: #### L 400.0001 #### [facility] [address] [place], [address] CA,Total 8.6 mg/dL Normal 8.5-10.1 [facility] Comment on above: Performed By: #### L 400.0001 #### [facility] [address] [place], [address] Chloride [Moles/Vol] 112 mmol/L High 98-107 [facility] Comment on above: Performed By: #### L 400.0001 #### [facility] [address] [place], [address] CO2 [Moles/Vol] 23.0 mmol/L Normal 21.0-32.0 [facility] Comment on above: Performed By: #### L 400.0001 #### [facility] [address] [place], [address] Creatinine [Mass/Vol] 1.87 mg/dL High 0.70-1.30 [facility] Comment on above: Result Comment: The validity of the calculated GFR GFRAA in patients over 70 years has not been determined. Clinical correlation is essential. Performed By: #### L 400.0001 #### [facility] [address] [place], [address] ECRCL 36.61 ml/min Normal [facility] Comment on above: Performed By: #### L 400.0001 #### [facility] [address] [place], [address] EST GFR - AA 45 mL/min Low >60 [facility] Comment on above: Result Comment: Afri can Faroese GFR Calc Performed By: #### L 400.0001 #### [facility] [address] [place], [address] GAP 6 Normal 5-15 [facility] Comment on above: Performed By: #### L 400.0001 #### [facility] [address] [place], [address] GFR/1.73 sq M.predicted among non-blacks MDRD (S/P/Bld) [Vol rate/Area] 37 mL/min/{1.73_m2} Low >60 [facility] Comment on above: Result Comment: Non- GFR Calc Performed By: #### L 400.0001 #### [facility] [address] [place], [address] Globulin (S) [Mass/Vol] 4.1 g/dL Normal 2.2-4.2 [facility] Comment on above: Performed By: #### L 400.0001 #### [facility] [address] [place], [address] Glucose [Mass/Vol] 241 mg/dL High 74-106 [facility] Comment on above: Result Comment: Gluc ose result greater than or equal to 200 mg/dL suggests DIABETES MELLITUS per A.D.A. criteria. Performed By: #### L 400.0001 #### [facility] [address] [place], [address] Potassium [Moles/Vol] 4.1 mmol/L Normal 3.5-5.1 [facility] Comment on above: Performed By: #### L 400.0001 #### [facility] [address] [place], [address] Sodium [Moles/Vol] 141 mmol/L Normal 136-145 [facility] Comment on above: Performed By: #### L 400.0001 #### [facility] [address] [place], [address] T PROT 6.9 g/dL Normal 6.4-8.2 [facility] Comment on above: Performed By: #### L 400.0001 #### [facility] [address] [place], [address] Urea nitrogen [Mass/Vol] 32 mg/dL High 7-18 [facility] Comment on above: Performed By: #### L 400.0001 #### [facility] [address] [place], [address] Emergency Department Summary on 09-03-2024 Emergency Department Summary [facility] Medical Records Department [address] [address] Emergency Department Summary 09/03/24 MR#: [id number] Acct: [id number] Name: LORI LYNCH Rep #: [id number] : 1945 79 From: Franki Median DO PCP: [facility] Status:DEP ER Location: ED HPI History [...] for evaluation. He does see Dr. Mckoy [facility] Medical History Diabetes High cholesterol HTN [...] 09/03/24 13:2 (more content not included)... Normal [facility] Lactic Acidon 09-03-2024 Lactate [Moles/Vol] 1.2 mmol/L Normal 0.4-1.9 [facility] Comment on above: Order Comment: HUI TER SPECIMEN Performed By: #### L 400.0001 #### [facility] [address] [place], [address] Partial Thromboplast Timeon 09-03-2024 aPTT Coag (Bld) [Time] 28.0 s Normal 24.1-36.2 [facility] Comment on above: Order Comment: HUI TER SPECIMEN Performed By: #### L 400.0001 #### [facility] [address] [place], [address] Prothrombin Time w/INRon INR Coag (PPP) [Relative time] 1.1 {INR} Normal [facility] Comment on above: Order Comment: HUI TER SPECIMEN Performed By: #### L 400.0001 #### [facility] [address] [place], [address] PT Coag (PPP) [Time] 14.6 s Normal 11.7-14.9 [facility] Comment on above: Order Comment: HUI TER SPECIMEN Performed By: #### L 400.0001 #### [facility] [address] [place], [address] INR Normal [facility] Comment on above: Result Comment: This specimen has been REJECTED due to Laboratory criteria: Hemolyzed. ED STAFF has been notified of need of recollection. 09/03/24 1432 Jd Reyes Performed By: #### L 400.0001 #### [facility] [address] [place], [address] PROTIME Normal 11.7-14.9 [facility] Comment on above: Result Comment: This specimen has been REJECTED due to Laboratory criteria: Hemolyzed. ED STAFF has been notified of need of recollection. 09/03/24 1432 Jd Reyes Performed By: #### L 400.0001 #### [facility] [address] [place], [address] Urinalysis, Completeon 09-03 BACTERIA 1+ /hpf Normal None Seen [facility] Comment on above: Order Comment: Micro scopic field is filled. Other elements may beobscured.CATHETER SPECIMEN Performed By: #### M 100.2200 #### [facility] [address] [place], [address] RBC 5-10 SEEN Normal 0-5 [facility] Comment on above: Order Comment: Micro scopic field is filled. Other elements may beobscured.CATHETER SPECIMEN Performed By: #### M 100.2200 #### [facility] [address] [place], [address] WBC >100 SEEN Normal 0-5 [facility] Comment on above: Order Comment: Micro scopic field is filled. Other elements may beobscured.CATHETER SPECIMEN Performed By: #### M 100.2200 #### [facility] [address] [place], [address] EPI,SQUAMOUS 0 SEEN Normal 0-5 [facility] Comment on above: Order Comment: Micro scopic field is filled. Other elements may beobscured.CATHETER SPECIMEN Performed By: #### M 100.2200 #### [facility] [address] [place], [address] Mucus Ql (Urine sed) 0 SEEN Normal [facility] Comment on above: Order Comment: Micro scopic field is filled. Other elements may beobscured.CATHETER SPECIMEN Performed By: #### M 100.2200 #### [facility] [address] [place], [address] CREATININE FINGERSTICKon Creatinine [Mass/Vol] 2.5 mg/dL High 0.70-1.30 [facility] Comment on above: Performed By: #### L 400.0001 #### [facility] [address] [place], [address] GFR/1.73 sq M.predicted among non-blacks MDRD (S/P/Bld) [Vol rate/Area] 27.0000 mL/min/{1.73_m2} Low >60 [facility] Comment on above: Performed By: #### L 400.0001 #### [facility] [address] [place], [address] CT Abd[facility]Pelvis W[facility] Abd/Pelvis W/WO Contrast [facility] [address] [place] [address] CT Abd/Pelvis W/WO Contrast MR#: [id number] Acct: [id number] Name: LORI LYNCH Rep #: [id number] : 1945 M 79 From: Sebas Alaniz MD PCP: [facility] Status: REG CLI Study: CT Abd/Pelvis W/WO Contrast Date of Exam: 03/19 Exam# [id number] Ordering Dr: NEDRA,JANUARY ADDENDUM by Dr. Sebas Alaniz MD on 09/01/24 at 1609 [id number] STUDY: CT ABDOMEN AND PELVIS WITH AND [...] disc disease. 09/01/24 1609 Date cc: JANUARY [facility] * Signed ADDENDUM by Dr. Sebas Alaniz [...] 16:09 EST , 09/03/24941 Date cc: JANUARY [facility]; [facility] * Signed We are attempting to reach an attending provider to discuss findings. An addendum with communication details will be sent when the communication is complete. [id number] STUDY: CT ABDOMEN AND PELVIS WITH AND [...] wall and (more content not included)... Normal [facility] PET/CT Tumor Base -Thigh Sub son 08-24-2024 PET/CT Tumor Base -Thigh Subs [facility] Imaging Services [address] [place] [address] PET/CT Tumor Base -Thigh Subs MR#: [id number] Acct: [id number] Name: LORI LYNCH Rep #: [id number] : 1945 M 79 From: Sebas Valladares PCP: [facility] Status: REG CLI Study: PET/CT Tumor Base -Thigh Subs Date of Exam: Exam# [id number] Ordering Dr: MIREYA SOLIS [id number] EXAMINATION: FDG PET-CT INDICATIONS: An 79-year-old male [...] this report are calculated using the exclusive [employer], ([place].S. Patent No. [phone] patent EP [phone] ). Standardization and correction of the FDG SUV metric exclusively available with [employer] intellectual property, allow for vendor non-specific objective quantitative sequential FDG PET-CT comparison and otherwise unobtainable optimization of the sensitivity and specificity of the examination. [email or web address] Electronically Signed: Sebas Pleitez DO at 8:03 EDT , CC: MIREYA SOLIS; [facility] Insulator Apprentice: Signed Normal [facility] Chest without Contraston Chest without Contrast [facility] Imaging [place] [address] Chest without Contrast MR#: [id number] Acct: [id number] Name: LORI LYNCH Rep #: [id number] : 1945 M 78 From: Noam Cueva PCP: [facility] Status: REG CLI Study: Chest without Contrast Date of Exam: 07/30/24 Exam# [id number] Ordering Dr: MIREYA PARK [id number] STUDY: CT Chest W/O Contrast Injection 08/01/2024 7:04 PM REASON FOR EXAM: Male, 78 years old. Malignant neoplasm of upper lobe, right bronchus or lung Individualized dose optimization techniques were used for this CT. TECHNIQUE: Transaxial imaging was performed without contrast material. COMPARISON: PET 3.26.24 FINDINGS: There are degenerative changes of the [...] at 19:10 EDT , CC: MIREYA PARK; [facility] Insulator Apprentice: Signed Normal [facility] Basic Metabolic Profile (BMP )on 07-20-2024 BUN Normal 7-18 [facility] Comment on above: Result Comment: Canc elled via OM: Order cancelled - Patient discharged Performed By: #### M 100.2200 #### [facility] [address] [place], [address] BUN/CRE Normal 10-20 [facility] Comment on above: Result Comment: Canc elled via OM: Order cancelled - Patient discharged Performed By: #### M 100.2200 #### [facility] [address] [place], [address] CA,Total Normal 8.5-10.1 [facility] Comment on above: Result Comment: Canc elled via OM: Order cancelled - Patient discharged Performed By: #### M 100.2200 #### [facility] [address] [place], [address] CL Normal 98-107 [facility] Comment on above: Result Comment: Canc elled via OM: Order cancelled - Patient discharged Performed By: #### M 100.2200 #### [facility] [address] [place], [address] CO2 Normal 21.0-32.0 [facility] Comment on above: Result Comment: Canc elled via OM: Order cancelled - Patient discharged Performed By: #### M 100.2200 #### [facility] [address] [place], [address] CREAT,SERUM Normal 0.70-1.30 [facility] Comment on above: Result Comment: Canc elled via OM: Order cancelled - Patient discharged Performed By: #### M 100.2200 #### [facility] [address] [place], [address] EST GFR Normal >60 [facility] Comment on above: Result Comment: Canc elled via OM: Order cancelled - Patient discharged Performed By: #### M 100.2200 #### [facility] [address] [place], [address] EST GFR - AA Normal >60 [facility] Comment on above: Result Comment: Canc elled via OM: Order cancelled - Patient discharged Performed By: #### M 100.2200 #### [facility] [address] [place], [address] GAP Normal 5-15 [facility] Comment on above: Result Comment: Canc elled via OM: Order cancelled - Patient discharged Performed By: #### M 100.2200 #### [facility] [address] [place], [address] GLU Normal 74-106 [facility] Comment on above: Result Comment: Canc elled via OM: Order cancelled - Patient discharged Performed By: #### M 100.2200 #### [facility] [address] [place], [address] Potassium Normal 3.5-5.1 [facility] Comment on above: Result Comment: Canc elled via OM: Order cancelled - Patient discharged Performed By: #### M 100.2200 #### [facility] [address] [place], [address] Basic Metabolic Profile (BMP) Normal 136-145 [facility] Comment on above: Result Comment: Canc elled via OM: Order cancelled - Patient discharged Performed By: #### M 100.2200 #### [facility] [address] [place], [address] CBC W/Diff, Automatedon 09-2 Absolute Neut Normal 2.0-7.7 [facility] Comment on above: Result Comment: Canc elled via OM: Order cancelled - Patient discharged Performed By: #### L 503.6005 #### [facility] [address] [place], [address] HCT Normal 40-54 [facility] Comment on above: Result Comment: Canc elled via OM: Order cancelled - Patient discharged Performed By: #### L 503.6005 #### [facility] [address] [place], [address] HGB Normal 13.0-16.5 [facility] Comment on above: Result Comment: Canc elled via OM: Order cancelled - Patient discharged Performed By: #### L 503.6005 #### [facility] [address] [place], [address] MCH Normal 27.0-32.0 [facility] Comment on above: Result Comment: Canc elled via OM: Order cancelled - Patient discharged Performed By: #### L 503.6005 #### [facility] [address] [place], [address] MCHC Normal 32-36 [facility] Comment on above: Result Comment: Canc elled via OM: Order cancelled - Patient discharged Performed By: #### L 503.6005 #### [facility] [address] [place], [address] MCV Normal 80-94 [facility] Comment on above: Result Comment: Canc elled via OM: Order cancelled - Patient discharged Performed By: #### L 503.6005 #### [facility] [address] [place], [address] NEUT% Normal 47-70 [facility] Comment on above: Result Comment: Canc elled via OM: Order cancelled - Patient discharged Performed By: #### L 503.6005 #### [facility] [address] [place], [address] PLT Normal 150-450 [facility] Comment on above: Result Comment: Canc elled via OM: Order cancelled - Patient discharged Performed By: #### L 503.6005 #### [facility] [address] [place], [address] RBC Normal 4.6-6.2 [facility] Comment on above: Result Comment: Canc elled via OM: Order cancelled - Patient discharged Performed By: #### L 503.6005 #### [facility] [address] [place], [address] RDW CV Normal 11.6-14.6 [facility] Comment on above: Result Comment: Canc elled via OM: Order cancelled - Patient discharged Performed By: #### L 503.6005 #### [facility] [address] [place], [address] RDW SD Normal 35.1-43.9 [facility] Comment on above: Result Comment: Canc elled via OM: Order cancelled - Patient discharged Performed By: #### L 503.6005 #### [facility] [address] [place], [address] WBC Normal 4.4-11.0 [facility] Comment on above: Result Comment: Canc elled via OM: Order cancelled - Patient discharged Performed By: #### L 503.6005 #### [facility] [address] [place], [address] Basic Metabolic Profile (BMP )on 07-19-2024 BUN Normal 7-18 [facility] Comment on above: Result Comment: Canc elled via OM: Order cancelled - Patient discharged Performed By: #### L 503.6005 #### [facility] [address] [place], [address] BUN/CRE Normal 10-20 [facility] Comment on above: Result Comment: Canc elled via OM: Order cancelled - Patient discharged Performed By: #### L 503.6005 #### [facility] [address] [place], [address] CA,Total Normal 8.5-10.1 [facility] Comment on above: Result Comment: Canc elled via OM: Order cancelled - Patient discharged Performed By: #### L 503.6005 #### [facility] [address] [place], [address] CL Normal 98-107 [facility] Comment on above: Result Comment: Canc elled via OM: Order cancelled - Patient discharged Performed By: #### L 503.6005 #### [facility] [address] [place], [address] CO2 Normal 21.0-32.0 [facility] Comment on above: Result Comment: Canc elled via OM: Order cancelled - Patient discharged Performed By: #### L 503.6005 #### [facility] [address] [place], [address] CREAT,SERUM Normal 0.70-1.30 [facility] Comment on above: Result Comment: Canc elled via OM: Order cancelled - Patient discharged Performed By: #### L 503.6005 #### [facility] [address] [place], [address] EST GFR Normal >60 [facility] Comment on above: Result Comment: Canc elled via OM: Order cancelled - Patient discharged Performed By: #### L 503.6005 #### [facility] [address] [place], [address] EST GFR - AA Normal >60 [facility] Comment on above: Result Comment: Canc elled via OM: Order cancelled - Patient discharged Performed By: #### L 503.6005 #### [facility] [address] [place], [address] GAP Normal 5-15 [facility] Comment on above: Result Comment: Canc elled via OM: Order cancelled - Patient discharged Performed By: #### L 503.6005 #### [facility] [address] [place], [address] GLU Normal 74-106 [facility] Comment on above: Result Comment: Canc elled via OM: Order cancelled - Patient discharged Performed By: #### L 503.6005 #### [facility] [address] [place], [address] Potassium Normal 3.5-5.1 [facility] Comment on above: Result Comment: Canc elled via OM: Order cancelled - Patient discharged Performed By: #### L 503.6005 #### [facility] [address] [place], [address] Basic Metabolic Profile (BMP) Normal 136-145 [facility] Comment on above: Result Comment: Canc elled via OM: Order cancelled - Patient discharged Performed By: #### L 503.6005 #### [facility] [address] [place], [address] CBC W/Diff, Automatedon 09-2 Absolute Neut Normal 2.0-7.7 [facility] Comment on above: Result Comment: Canc elled via OM: Order cancelled - Patient discharged Performed By: #### L 503.6005 #### [facility] [address] [place], [address] HCT Normal 40-54 [facility] Comment on above: Result Comment: Canc elled via OM: Order cancelled - Patient discharged Performed By: #### L 503.6005 #### [facility] [address] [place], [address] HGB Normal 13.0-16.5 [facility] Comment on above: Result Comment: Canc elled via OM: Order cancelled - Patient discharged Performed By: #### L 503.6005 #### [facility] [address] [place], [address] MCH Normal 27.0-32.0 [facility] Comment on above: Result Comment: Canc elled via OM: Order cancelled - Patient discharged Performed By: #### L 503.6005 #### [facility] [address] [place], [address] MCHC Normal 32-36 [facility] Comment on above: Result Comment: Canc elled via OM: Order cancelled - Patient discharged Performed By: #### L 503.6005 #### [facility] [address] [place], [address] MCV Normal 80-94 [facility] Comment on above: Result Comment: Canc elled via OM: Order cancelled - Patient discharged Performed By: #### L 503.6005 #### [facility] [address] [place], [address] NEUT% Normal 47-70 [facility] Comment on above: Result Comment: Canc elled via OM: Order cancelled - Patient discharged Performed By: #### L 503.6005 #### [facility] [address] [place], [address] PLT Normal 150-450 [facility] Comment on above: Result Comment: Canc elled via OM: Order cancelled - Patient discharged Performed By: #### L 503.6005 #### [facility] [address] [place], [address] RBC Normal 4.6-6.2 [facility] Comment on above: Result Comment: Canc elled via OM: Order cancelled - Patient discharged Performed By: #### L 503.6005 #### [facility] [address] [place], [address] RDW CV Normal 11.6-14.6 [facility] Comment on above: Result Comment: Canc elled via OM: Order cancelled - Patient discharged Performed By: #### L 503.6005 #### [facility] [address] [place], [address] RDW SD Normal 35.1-43.9 [facility] Comment on above: Result Comment: Canc elled via OM: Order cancelled - Patient discharged Performed By: #### L 503.6005 #### [facility] [address] [place], [address] WBC Normal 4.4-11.0 [facility] Comment on above: Result Comment: Canc elled via OM: Order cancelled - Patient discharged Performed By: #### L 503.6005 #### [facility] [address] [place], [address] Basic Metabolic Profile (BMP )on 07-18-2024 BUN Normal 7-18 [facility] Comment on above: Result Comment: Canc elled via OM: Order cancelled - Patient discharged Performed By: #### L 503.6005 #### [facility] [address] [place], [address] BUN/CRE Normal 10-20 [facility] Comment on above: Result Comment: Canc elled via OM: Order cancelled - Patient discharged Performed By: #### L 503.6005 #### [facility] [address] [place], [address] CA,Total Normal 8.5-10.1 [facility] Comment on above: Result Comment: Canc elled via OM: Order cancelled - Patient discharged Performed By: #### L 503.6005 #### [facility] [address] [place], [address] CL Normal 98-107 [facility] Comment on above: Result Comment: Canc elled via OM: Order cancelled - Patient discharged Performed By: #### L 503.6005 #### [facility] [address] [place], [address] CO2 Normal 21.0-32.0 [facility] Comment on above: Result Comment: Canc elled via OM: Order cancelled - Patient discharged Performed By: #### L 503.6005 #### [facility] [address] [place], [address] CREAT,SERUM Normal 0.70-1.30 [facility] Comment on above: Result Comment: Canc elled via OM: Order cancelled - Patient discharged Performed By: #### L 503.6005 #### [facility] [address] [place], [address] EST GFR Normal >60 [facility] Comment on above: Result Comment: Canc elled via OM: Order cancelled - Patient discharged Performed By: #### L 503.6005 #### [facility] [address] [place], [address] EST GFR - AA Normal >60 [facility] Comment on above: Result Comment: Canc elled via OM: Order cancelled - Patient discharged Performed By: #### L 503.6005 #### [facility] [address] [place], [address] GAP Normal 5-15 [facility] Comment on above: Result Comment: Canc elled via OM: Order cancelled - Patient discharged Performed By: #### L 503.6005 #### [facility] [address] [place], [address] GLU Normal 74-106 [facility] Comment on above: Result Comment: Canc elled via OM: Order cancelled - Patient discharged Performed By: #### L 503.6005 #### [facility] [address] [place], [address] Potassium Normal 3.5-5.1 [facility] Comment on above: Result Comment: Canc elled via OM: Order cancelled - Patient discharged Performed By: #### L 503.6005 #### [facility] [address] [place], [address] Basic Metabolic Profile (BMP) Normal 136-145 [facility] Comment on above: Result Comment: Canc elled via OM: Order cancelled - Patient discharged Performed By: #### L 503.6005 #### [facility] [address] [place], [address] CBC W/Diff, Automatedon - Absolute Neut Normal 2.0-7.7 [facility] Comment on above: Result Comment: Canc elled via OM: Order cancelled - Patient discharged Performed By: #### L 503.6005 #### [facility] [address] [place], [address] HCT Normal 40-54 [facility] Comment on above: Result Comment: Canc elled via OM: Order cancelled - Patient discharged Performed By: #### L 503.6005 #### [facility] [address] [place], [address] HGB Normal 13.0-16.5 [facility] Comment on above: Result Comment: Canc elled via OM: Order cancelled - Patient discharged Performed By: #### L 503.6005 #### [facility] [address] [place], [address] MCH Normal 27.0-32.0 [facility] Comment on above: Result Comment: Canc elled via OM: Order cancelled - Patient discharged Performed By: #### L 503.6005 #### [facility] [address] [place], [address] MCHC Normal 32-36 [facility] Comment on above: Result Comment: Canc elled via OM: Order cancelled - Patient discharged Performed By: #### L 503.6005 #### [facility] [address] [place], [address] MCV Normal 80-94 [facility] Comment on above: Result Comment: Canc elled via OM: Order cancelled - Patient discharged Performed By: #### L 503.6005 #### [facility] [address] [place], [address] NEUT% Normal 47-70 [facility] Comment on above: Result Comment: Canc elled via OM: Order cancelled - Patient discharged Performed By: #### L 503.6005 #### [facility] [address] [place], [address] PLT Normal 150-450 [facility] Comment on above: Result Comment: Canc elled via OM: Order cancelled - Patient discharged Performed By: #### L 503.6005 #### [facility] [address] [place], [address] RBC Normal 4.6-6.2 [facility] Comment on above: Result Comment: Canc elled via OM: Order cancelled - Patient discharged Performed By: #### L 503.6005 #### [facility] [address] [place], [address] RDW CV Normal 11.6-14.6 [facility] Comment on above: Result Comment: Canc elled via OM: Order cancelled - Patient discharged Performed By: #### L 503.6005 #### [facility] [address] [place], [address] RDW SD Normal 35.1-43.9 [facility] Comment on above: Result Comment: Canc elled via OM: Order cancelled - Patient discharged Performed By: #### L 503.6005 #### [facility] [address] [place], [address] WBC Normal 4.4-11.0 [facility] Comment on above: Result Comment: Canc elled via OM: Order cancelled - Patient discharged Performed By: #### L 503.6005 #### [facility] [address] [place], [address] Basic Metabolic Profile (BMP )on 07-17-2024 BUN Normal 7-18 [facility] Comment on above: Result Comment: Canc elled via OM: Order cancelled - Patient discharged Performed By: #### L 400.0001 #### [facility] [address] [place], [address] BUN/CRE Normal 10-20 [facility] Comment on above: Result Comment: Canc elled via OM: Order cancelled - Patient discharged Performed By: #### L 400.0001 #### [facility] [address] [place], [address] CA,Total Normal 8.5-10.1 [facility] Comment on above: Result Comment: Canc elled via OM: Order cancelled - Patient discharged Performed By: #### L 400.0001 #### [facility] [address] [place], [address] CL Normal 98-107 [facility] Comment on above: Result Comment: Canc elled via OM: Order cancelled - Patient discharged Performed By: #### L 400.0001 #### [facility] [address] [place], [address] CO2 Normal 21.0-32.0 [facility] Comment on above: Result Comment: Canc elled via OM: Order cancelled - Patient discharged Performed By: #### L 400.0001 #### [facility] [address] [place], [address] CREAT,SERUM Normal 0.70-1.30 [facility] Comment on above: Result Comment: Canc elled via OM: Order cancelled - Patient discharged Performed By: #### L 400.0001 #### [facility] [address] [place], [address] EST GFR Normal >60 [facility] Comment on above: Result Comment: Canc elled via OM: Order cancelled - Patient discharged Performed By: #### L 400.0001 #### [facility] [address] [place], [address] EST GFR - AA Normal >60 [facility] Comment on above: Result Comment: Canc elled via OM: Order cancelled - Patient discharged Performed By: #### L 400.0001 #### [facility] [address] [place], [address] GAP Normal 5-15 [facility] Comment on above: Result Comment: Canc elled via OM: Order cancelled - Patient discharged Performed By: #### L 400.0001 #### [facility] [address] [place], [address] GLU Normal 74-106 [facility] Comment on above: Result Comment: Canc elled via OM: Order cancelled - Patient discharged Performed By: #### L 400.0001 #### [facility] [address] [place], [address] Potassium Normal 3.5-5.1 [facility] Comment on above: Result Comment: Canc elled via OM: Order cancelled - Patient discharged Performed By: #### L 400.0001 #### [facility] [address] [place], [address] Basic Metabolic Profile (BMP) Normal 136-145 [facility] Comment on above: Result Comment: Canc elled via OM: Order cancelled - Patient discharged Performed By: #### L 400.0001 #### [facility] [address] [place], [address] CBC W/Diff, Automatedon 09-2 Absolute Neut Normal 2.0-7.7 [facility] Comment on above: Result Comment: Canc elled via OM: Order cancelled - Patient discharged Performed By: #### L 400.0001 #### [facility] [address] [place], [address] HCT Normal 40-54 [facility] Comment on above: Result Comment: Canc elled via OM: Order cancelled - Patient discharged Performed By: #### L 400.0001 #### [facility] [address] [place], [address] HGB Normal 13.0-16.5 [facility] Comment on above: Result Comment: Canc elled via OM: Order cancelled - Patient discharged Performed By: #### L 400.0001 #### [facility] [address] [place], [address] MCH Normal 27.0-32.0 [facility] Comment on above: Result Comment: Canc elled via OM: Order cancelled - Patient discharged Performed By: #### L 400.0001 #### [facility] [address] [place], [address] MCHC Normal 32-36 [facility] Comment on above: Result Comment: Canc elled via OM: Order cancelled - Patient discharged Performed By: #### L 400.0001 #### [facility] [address] [place], [address] MCV Normal 80-94 [facility] Comment on above: Result Comment: Canc elled via OM: Order cancelled - Patient discharged Performed By: #### L 400.0001 #### [facility] [address] [place], [address] NEUT% Normal 47-70 [facility] Comment on above: Result Comment: Canc elled via OM: Order cancelled - Patient discharged Performed By: #### L 400.0001 #### [facility] [address] [place], [address] PLT Normal 150-450 [facility] Comment on above: Result Comment: Canc elled via OM: Order cancelled - Patient discharged Performed By: #### L 400.0001 #### [facility] [address] [place], [address] RBC Normal 4.6-6.2 [facility] Comment on above: Result Comment: Canc elled via OM: Order cancelled - Patient discharged Performed By: #### L 400.0001 #### [facility] [address] [place], [address] RDW CV Normal 11.6-14.6 [facility] Comment on above: Result Comment: Canc elled via OM: Order cancelled - Patient discharged Performed By: #### L 400.0001 #### [facility] [address] [place], [address] RDW SD Normal 35.1-43.9 [facility] Comment on above: Result Comment: Canc elled via OM: Order cancelled - Patient discharged Performed By: #### L 400.0001 #### [facility] [address] [place], [address] WBC Normal 4.4-11.0 [facility] Comment on above: Result Comment: Canc elled via OM: Order cancelled - Patient discharged Performed By: #### L 400.0001 #### [facility] [address] [place], [address] Basic Metabolic Profile (BMP )on 07-16-2024 BUN Normal 7-18 [facility] Comment on above: Result Comment: Canc elled via OM: Order cancelled - Patient discharged Performed By: #### L 400.0001 #### [facility] [address] [place], [address] BUN/CRE Normal 10-20 [facility] Comment on above: Result Comment: Canc elled via OM: Order cancelled - Patient discharged Performed By: #### L 400.0001 #### [facility] [address] [place], [address] CA,Total Normal 8.5-10.1 [facility] Comment on above: Result Comment: Canc elled via OM: Order cancelled - Patient discharged Performed By: #### L 400.0001 #### [facility] [address] [place], [address] CL Normal 98-107 [facility] Comment on above: Result Comment: Canc elled via OM: Order cancelled - Patient discharged Performed By: #### L 400.0001 #### [facility] [address] [place], [address] CO2 Normal 21.0-32.0 [facility] Comment on above: Result Comment: Canc elled via OM: Order cancelled - Patient discharged Performed By: #### L 400.0001 #### [facility] [address] [place], [address] CREAT,SERUM Normal 0.70-1.30 [facility] Comment on above: Result Comment: Canc elled via OM: Order cancelled - Patient discharged Performed By: #### L 400.0001 #### [facility] [address] [place], [address] EST GFR Normal >60 [facility] Comment on above: Result Comment: Canc elled via OM: Order cancelled - Patient discharged Performed By: #### L 400.0001 #### [facility] [address] [place], [address] EST GFR - AA Normal >60 [facility] Comment on above: Result Comment: Canc elled via OM: Order cancelled - Patient discharged Performed By: #### L 400.0001 #### [facility] [address] [place], [address] GAP Normal 5-15 [facility] Comment on above: Result Comment: Canc elled via OM: Order cancelled - Patient discharged Performed By: #### L 400.0001 #### [facility] [address] [place], [address] GLU Normal 74-106 [facility] Comment on above: Result Comment: Canc elled via OM: Order cancelled - Patient discharged Performed By: #### L 400.0001 #### [facility] [address] [place], [address] Potassium Normal 3.5-5.1 [facility] Comment on above: Result Comment: Canc elled via OM: Order cancelled - Patient discharged Performed By: #### L 400.0001 #### [facility] [address] [place], [address] Basic Metabolic Profile (BMP) Normal 136-145 [facility] Comment on above: Result Comment: Canc elled via OM: Order cancelled - Patient discharged Performed By: #### L 400.0001 #### [facility] [address] [place], [address] CBC W/Diff, Automatedon 09-2 0-2023 Absolute Neut Normal 2.0-7.7 [facility] Comment on above: Result Comment: Canc elled via OM: Order cancelled - Patient discharged Performed By: #### L 400.0001 #### [facility] [address] [place], [address] HCT Normal 40-54 [facility] Comment on above: Result Comment: Canc elled via OM: Order cancelled - Patient discharged Performed By: #### L 400.0001 #### [facility] [address] [place], [address] HGB Normal 13.0-16.5 [facility] Comment on above: Result Comment: Canc elled via OM: Order cancelled - Patient discharged Performed By: #### L 400.0001 #### [facility] [address] [place], [address] MCH Normal 27.0-32.0 [facility] Comment on above: Result Comment: Canc elled via OM: Order cancelled - Patient discharged Performed By: #### L 400.0001 #### [facility] [address] [place], [address] MCHC Normal 32-36 [facility] Comment on above: Result Comment: Canc elled via OM: Order cancelled - Patient discharged Performed By: #### L 400.0001 #### [facility] [address] [place], [address] MCV Normal 80-94 [facility] Comment on above: Result Comment: Canc elled via OM: Order cancelled - Patient discharged Performed By: #### L 400.0001 #### [facility] [address] [place], [address] NEUT% Normal 47-70 [facility] Comment on above: Result Comment: Canc elled via OM: Order cancelled - Patient discharged Performed By: #### L 400.0001 #### [facility] [address] [place], [address] PLT Normal 150-450 [facility] Comment on above: Result Comment: Canc elled via OM: Order cancelled - Patient discharged Performed By: #### L 400.0001 #### [facility] [address] [place], [address] RBC Normal 4.6-6.2 [facility] Comment on above: Result Comment: Canc elled via OM: Order cancelled - Patient discharged Performed By: #### L 400.0001 #### [facility] [address] [place], [address] RDW CV Normal 11.6-14.6 [facility] Comment on above: Result Comment: Canc elled via OM: Order cancelled - Patient discharged Performed By: #### L 400.0001 #### [facility] [address] [place], [address] RDW SD Normal 35.1-43.9 [facility] Comment on above: Result Comment: Canc elled via OM: Order cancelled - Patient discharged Performed By: #### L 400.0001 #### [facility] [address] [place], [address] WBC Normal 4.4-11.0 [facility] Comment on above: Result Comment: Canc elled via OM: Order cancelled - Patient discharged Performed By: #### L 400.0001 #### [facility] [address] [place], [address] Basic Metabolic Profile (BMP )on 07-15-2024 BUN Normal 7-18 [facility] Comment on above: Result Comment: Canc elled via OM: Order cancelled - Patient discharged Performed By: #### L 100.0100, L500.2500 #### [facility] [address] [place], [address] BUN/CRE Normal 10-20 [facility] Comment on above: Result Comment: Canc elled via OM: Order cancelled - Patient discharged Performed By: #### L 100.0100, L500.2500 #### [facility] [address] [place], [address] CA,Total Normal 8.5-10.1 [facility] Comment on above: Result Comment: Canc elled via OM: Order cancelled - Patient discharged Performed By: #### L 100.0100, L500.2500 #### [facility] [address] [place], [address] CL Normal 98-107 [facility] Comment on above: Result Comment: Canc elled via OM: Order cancelled - Patient discharged Performed By: #### L 100.0100, L500.2500 #### [facility] [address] [place], [address] CO2 Normal 21.0-32.0 [facility] Comment on above: Result Comment: Canc elled via OM: Order cancelled - Patient discharged Performed By: #### L 100.0100, L500.2500 #### [facility] [address] [place], [address] CREAT,SERUM Normal 0.70-1.30 [facility] Comment on above: Result Comment: Canc elled via OM: Order cancelled - Patient discharged Performed By: #### L 100.0100, L500.2500 #### [facility] [address] [place], [address] EST GFR Normal >60 [facility] Comment on above: Result Comment: Canc elled via OM: Order cancelled - Patient discharged Performed By: #### L 100.0100, L500.2500 #### [facility] [address] [place], [address] EST GFR - AA Normal >60 [facility] Comment on above: Result Comment: Canc elled via OM: Order cancelled - Patient discharged Performed By: #### L 100.0100, L500.2500 #### [facility] [address] [place], [address] GAP Normal 5-15 [facility] Comment on above: Result Comment: Canc elled via OM: Order cancelled - Patient discharged Performed By: #### L 100.0100, L500.2500 #### [facility] [address] [place], [address] GLU Normal 74-106 [facility] Comment on above: Result Comment: Canc elled via OM: Order cancelled - Patient discharged Performed By: #### L 100.0100, L500.2500 #### [facility] [address] [place] [place] [address] Potassium Normal 3.5-5.1 [facility] Comment on above: Result Comment: Canc elled via OM: Order cancelled - Patient discharged Performed By: #### L 100.0100, L500.2500 #### [facility] [address] [place], [address] Basic Metabolic Profile (BMP) Normal 136-145 [facility] Comment on above: Result Comment: Canc elled via OM: Order cancelled - Patient discharged Performed By: #### L 100.0100, L500.2500 #### [facility] [address] [place], [address] CBC W/Diff, Automatedon 06-27 PATH REV Reviewed Normal [facility] Comment on above: Result Comment: Leuk ocytosis. Microcytic anemia. Clinical correlation necessary. Trent Corea M.D. 07/15/24 AMENDED REPORT 07/15/24 1304 PATH REV previously reported as: February Performed By: #### L 400.0001 #### [facility] [address] [place], [address] Absolute Neut Normal 2.0-7.7 [facility] Comment on above: Result Comment: Canc elled via OM: Order cancelled - Patient discharged Performed By: #### L 100.0100, L500.2500 #### [facility] [address] [place], [address] HCT Normal 40-54 [facility] Comment on above: Result Comment: Canc elled via OM: Order cancelled - Patient discharged Performed By: #### L 100.0100, L500.2500 #### [facility] [address] [place], [address] HGB Normal 13.0-16.5 [facility] Comment on above: Result Comment: Canc elled via OM: Order cancelled - Patient discharged Performed By: #### L 100.0100, L500.2500 #### [facility] [address] [place], [address] MCH Normal 27.0-32.0 [facility] Comment on above: Result Comment: Canc elled via OM: Order cancelled - Patient discharged Performed By: #### L 100.0100, L500.2500 #### [facility] [address] [place], [address] MCHC Normal 32-36 [facility] Comment on above: Result Comment: Canc elled via OM: Order cancelled - Patient discharged Performed By: #### L 100.0100, L500.2500 #### [facility] [address] [place], [address] MCV Normal 80-94 [facility] Comment on above: Result Comment: Canc elled via OM: Order cancelled - Patient discharged Performed By: #### L 100.0100, L500.2500 #### [facility] [address] [place], [address] NEUT% Normal 47-70 [facility] Comment on above: Result Comment: Canc elled via OM: Order cancelled - Patient discharged Performed By: #### L 100.0100, L500.2500 #### [facility] [address] [place], [address] PLT Normal 150-450 [facility] Comment on above: Result Comment: Canc elled via OM: Order cancelled - Patient discharged Performed By: #### L 100.0100, L500.2500 #### [facility] [address] [place], [address] RBC Normal 4.6-6.2 [facility] Comment on above: Result Comment: Canc elled via OM: Order cancelled - Patient discharged Performed By: #### L 100.0100, L500.2500 #### [facility] [address] [place], [address] RDW CV Normal 11.6-14.6 [facility] Comment on above: Result Comment: Canc elled via OM: Order cancelled - Patient discharged Performed By: #### L 100.0100, L500.2500 #### [facility] [address] [place], [address] RDW SD Normal 35.1-43.9 [facility] Comment on above: Result Comment: Canc elled via OM: Order cancelled - Patient discharged Performed By: #### L 100.0100, L500.2500 #### [facility] [address] [place], [address] WBC Normal 4.4-11.0 [facility] Comment on above: Result Comment: Canc elled via OM: Order cancelled - Patient discharged Performed By: #### L 100.0100, L500.2500 #### [facility] [address] [place], [address] Basic Metabolic Profile (BMP )on 07-14-2024 BUN Normal 7-18 [facility] Comment on above: Result Comment: Canc elled via OM: Order cancelled - Patient discharged Performed By: #### L 400.0001 #### [facility] [address] [place], [address] BUN/CRE Normal 10-20 [facility] Comment on above: Result Comment: Canc elled via OM: Order cancelled - Patient discharged Performed By: #### L 400.0001 #### [facility] [address] [place], [address] CA,Total Normal 8.5-10.1 [facility] Comment on above: Result Comment: Canc elled via OM: Order cancelled - Patient discharged Performed By: #### L 400.0001 #### [facility] [address] [place], [address] CL Normal 98-107 [facility] Comment on above: Result Comment: Canc elled via OM: Order cancelled - Patient discharged Performed By: #### L 400.0001 #### [facility] [address] [place], [address] CO2 Normal 21.0-32.0 [facility] Comment on above: Result Comment: Canc elled via OM: Order cancelled - Patient discharged Performed By: #### L 400.0001 #### [facility] [address] [place], [address] CREAT,SERUM Normal 0.70-1.30 [facility] Comment on above: Result Comment: Canc elled via OM: Order cancelled - Patient discharged Performed By: #### L 400.0001 #### [facility] [address] [place], [address] EST GFR Normal >60 [facility] Comment on above: Result Comment: Canc elled via OM: Order cancelled - Patient discharged Performed By: #### L 400.0001 #### [facility] [address] [place], [address] EST GFR - AA Normal >60 [facility] Comment on above: Result Comment: Canc elled via OM: Order cancelled - Patient discharged Performed By: #### L 400.0001 #### [facility] [address] [place], [address] GAP Normal 5-15 [facility] Comment on above: Result Comment: Canc elled via OM: Order cancelled - Patient discharged Performed By: #### L 400.0001 #### [facility] [address] [place], [address] GLU Normal 74-106 [facility] Comment on above: Result Comment: Canc elled via OM: Order cancelled - Patient discharged Performed By: #### L 400.0001 #### [facility] [address] [place], [address] Potassium Normal 3.5-5.1 [facility] Comment on above: Result Comment: Canc elled via OM: Order cancelled - Patient discharged Performed By: #### L 400.0001 #### [facility] [address] [place], [address] Basic Metabolic Profile (BMP) Normal 136-145 [facility] Comment on above: Result Comment: Canc elled via OM: Order cancelled - Patient discharged Performed By: #### L 400.0001 #### [facility] [address] [place], [address] CBC W/Diff, Automatedon 09- Absolute Neut Normal 2.0-7.7 [facility] Comment on above: Result Comment: Canc elled via OM: Order cancelled - Patient discharged Performed By: #### L 400.0001 #### [facility] [address] [place], [address] HCT Normal 40-54 [facility] Comment on above: Result Comment: Canc elled via OM: Order cancelled - Patient discharged Performed By: #### L 400.0001 #### [facility] [address] [place], [address] HGB Normal 13.0-16.5 [facility] Comment on above: Result Comment: Canc elled via OM: Order cancelled - Patient discharged Performed By: #### L 400.0001 #### [facility] [address] [place], [address] MCH Normal 27.0-32.0 [facility] Comment on above: Result Comment: Canc elled via OM: Order cancelled - Patient discharged Performed By: #### L 400.0001 #### [facility] [address] [place], [address] MCHC Normal 32-36 [facility] Comment on above: Result Comment: Canc elled via OM: Order cancelled - Patient discharged Performed By: #### L 400.0001 #### [facility] [address] [place], [address] MCV Normal 80-94 [facility] Comment on above: Result Comment: Canc elled via OM: Order cancelled - Patient discharged Performed By: #### L 400.0001 #### [facility] [address] [place], [address] NEUT% Normal 47-70 [facility] Comment on above: Result Comment: Canc elled via OM: Order cancelled - Patient discharged Performed By: #### L 400.0001 #### [facility] [address] [place], [address] PLT Normal 150-450 [facility] Comment on above: Result Comment: Canc elled via OM: Order cancelled - Patient discharged Performed By: #### L 400.0001 #### [facility] [address] [place], [address] RBC Normal 4.6-6.2 [facility] Comment on above: Result Comment: Canc elled via OM: Order cancelled - Patient discharged Performed By: #### L 400.0001 #### [facility] [address] [place], [address] RDW CV Normal 11.6-14.6 [facility] Comment on above: Result Comment: Canc elled via OM: Order cancelled - Patient discharged Performed By: #### L 400.0001 #### [facility] [address] [place], [address] RDW SD Normal 35.1-43.9 [facility] Comment on above: Result Comment: Canc elled via OM: Order cancelled - Patient discharged Performed By: #### L 400.0001 #### [facility] [address] [place], [address] WBC Normal 4.4-11.0 [facility] Comment on above: Result Comment: Canc elled via OM: Order cancelled - Patient discharged Performed By: #### L 400.0001 #### [facility] [address] [place], [address] Culture, Blood (WB)on 2023 CUB Blood cultures x2, f rom two different sites No growth in 5 days. Normal [facility] Comment on above: Performed By: #### L 500.2500, L100.0100 #### [facility] [address] [place], [address] Basic Metabolic Profile (BMP )on 07-13-2024 BUN/CRE 21.1 RATIO High 10-20 [facility] Comment on above: Performed By: #### L 400.0001 #### [facility] [address] [place], [address] CA,Total 9.0 mg/dL Normal 8.5-10.1 [facility] Comment on above: Performed By: #### L 400.0001 #### [facility] [address] [place], [address] Chloride [Moles/Vol] 107 mmol/L Normal 98-107 [facility] Comment on above: Performed By: #### L 400.0001 #### [facility] [address] [place], [address] CO2 [Moles/Vol] 18.0 mmol/L Low 21.0-32.0 [facility] Comment on above: Performed By: #### L 400.0001 #### [facility] [address] [place], [address] Creatinine [Mass/Vol] 1.90 mg/dL High 0.70-1.30 [facility] Comment on above: Result Comment: The validity of the calculated GFR GFRAA in patients over 70 years has not been determined. Clinical correlation is essential. Performed By: #### L 400.0001 #### [facility] [address] [place], [address] ECRCL 36.55 ml/min Normal [facility] Comment on above: Performed By: #### L 400.0001 #### [facility] [address] [place], [address] EST GFR - AA 44 mL/min Low >60 [facility] Comment on above: Result Comment: Afri can Faroese GFR Calc Performed By: #### L 400.0001 #### [facility] [address] [place], [address] GAP 9 Normal 5-15 [facility] Comment on above: Performed By: #### L 400.0001 #### [facility] [address] [place], [address] GFR/1.73 sq M.predicted among non-blacks MDRD (S/P/Bld) [Vol rate/Area] 36 mL/min/{1.73_m2} Low >60 [facility] Comment on above: Result Comment: Non- GFR Calc Performed By: #### L 400.0001 #### [facility] [address] [place], [address] Glucose [Mass/Vol] 237 mg/dL High 74-106 [facility] Comment on above: Result Comment: Gluc ose result greater than or equal to 200 mg/dL suggests DIABETES MELLITUS per A.D.A. criteria. Performed By: #### L 400.0001 #### [facility] [address] [place], [address] Potassium [Moles/Vol] 4.0 mmol/L Normal 3.5-5.1 [facility] Comment on above: Performed By: #### L 400.0001 #### [facility] [address] [place], [address] Sodium [Moles/Vol] 134 mmol/L Low 136-145 [facility] Comment on above: Performed By: #### L 400.0001 #### [facility] [address] [place], [address] Urea nitrogen [Mass/Vol] 40 mg/dL High 05-13 [facility] Comment on above: Performed By: #### L 400.0001 #### [facility] [address] [place], [address] Discharge Instructionon 06-27 Discharge Instruction [facility] Medical Records Department [address] [place] [address] Instructions for Home/Discharge Instructions 07/13/24 [facility] MR#: [id number] Acct: [id number] Name: LORI LYNCH Rep #: [id number] : 1945 78 From: Apple Chavez MD PCP: [facility] Status:ADM IN Discharge Instructions Diet Discharge Diet: [...] Attending Provider: Apple Chavez Primary Care Provider: [facility] Consulting Providers: Chucky Mckoy; Olman Mcclellan; William [...] - Active Staff] - [facility] [Primary Care Provider] - Within 1 Week Disposition Disposition (needs filled in before D/C Order can be placed): Home, Self Care 07/13/24 1040 Apple Chavez MD CC: Dr. William Burciaga DO; Dr. Chucky Mckoy MD; Dr. Olman Mcclellan MD; [facility] Signed Normal [facility] Basic Metabolic Profile (BMP )on 07-12-2024 BUN/CRE 20.1 RATIO High 10-20 [facility] Comment on above: Performed By: #### L 500.2500, L100.0100 #### [facility] [address] [place], [address] CA,Total 8.6 mg/dL Normal 8.5-10.1 [facility] Comment on above: Performed By: #### L 500.2500, L100.0100 #### [facility] [address] [place], [address] Chloride [Moles/Vol] 108 mmol/L High 98-107 [facility] Comment on above: Performed By: #### L 500.2500, L100.0100 #### [facility] [address] [place], [address] CO2 [Moles/Vol] 20.0 mmol/L Low 21.0-32.0 [facility] Comment on above: Performed By: #### L 500.2500, L100.0100 #### [facility] [address] [place], [address] Creatinine [Mass/Vol] 2.04 mg/dL High 0.70-1.30 [facility] Comment on above: Result Comment: The validity of the calculated GFR GFRAA in patients over 70 years has not been determined. Clinical correlation is essential. Performed By: #### L 500.2500, L100.0100 #### [facility] [address] [place], [address] ECRCL 34.04 ml/min Normal [facility] Comment on above: Performed By: #### L 500.2500, L100.0100 #### [facility] [address] [place], [address] EST GFR - AA 41 mL/min Low >60 [facility] Comment on above: Result Comment: Afri can Faroese GFR Calc Performed By: #### L 500.2500, L100.0100 #### [facility] [address] [place], [address] GAP 6 Normal 5-15 [facility] Comment on above: Performed By: #### L 500.2500, L100.0100 #### [facility] [address] [place], [address] GFR/1.73 sq M.predicted among non-blacks MDRD (S/P/Bld) [Vol rate/Area] 34 mL/min/{1.73_m2} Low >60 [facility] Comment on above: Result Comment: Non- GFR Calc Performed By: #### L 500.2500, L100.0100 #### [facility] [address] [place], [address] Glucose [Mass/Vol] 225 mg/dL High 74-106 [facility] Comment on above: Result Comment: Gluc ose result greater than or equal to 200 mg/dL suggests DIABETES MELLITUS per A.D.A. criteria. Performed By: #### L 500.2500, L100.0100 #### [facility] [address] [place], [address] Potassium [Moles/Vol] 4.1 mmol/L Normal 3.5-5.1 [facility] Comment on above: Performed By: #### L 500.2500, L100.0100 #### [facility] [address] [place], [address] Sodium [Moles/Vol] 134 mmol/L Low 136-145 [facility] Comment on above: Performed By: #### L 500.2500, L100.0100 #### [facility] [address] [place], [address] Urea nitrogen [Mass/Vol] 41 mg/dL High 7-18 [facility] Comment on above: Performed By: #### L 500.2500, L100.0100 #### [facility] [address] [place], [address] Bedside Glucoseon 07-12-2024 FINGERSTICK GLU 325 mg/dL High 74-106 [facility] Comment on above: Result Comment: JAYLENE GEMENT OF PATIENT CARE PER NURSING PROTOCOL Performed By: #### L 503.6005 #### [facility] [address] [place], [address] FINGERSTICK GLU 208 mg/dL High 74-106 [facility] Comment on above: Result Comment: JAYLENE GEMENT OF PATIENT CARE PER NURSING PROTOCOL Performed By: #### L 100.0100, L500.2500 #### [facility] [address] [place], [address] CBC W/Diff, Automatedon - PATH REV Reviewed Normal [facility] Comment on above: Result Comment: Neut rophilic leukocytosis. Clinical correlation necessary. Trent Corea M.D. 07/12/24 AMENDED REPORT 07/12/24 0930 PATH REV previously reported as: Lois barragan Performed By: #### L 400.0001 #### [facility] [address] [place], [address] PATH REV Reviewed Normal [facility] Comment on above: Result Comment: Neut rophilic leukocytosis. Clinical correlation necessary. Trent Corea M.D. 07/12/24 AMENDED REPORT 07/12/24 0926 PATH REV previously reported as: February foll Performed By: #### L 100.0100, L500.2500 #### [facility] [address] [place], [address] PATH REV Reviewed Normal [facility] Comment on above: Result Comment: Neut rophilic leukocytosis. Clinical correlation necessary. Trent Corea M.D. 07/12/24 AMENDED REPORT 07/12/24 0925 PATH REV previously reported as: February foll Performed By: #### M 100.2200 #### [facility] [address] [place], [address] PATH REV Reviewed Normal [facility] Comment on above: Result Comment: Leuk ocytosis. Normocytic anemia. Clinical correlation necessary. Trent Corea M.D. 07/12/24 AMENDED REPORT 07/12/24 0913 PATH REV previously reported as: February foll Performed By: #### L 500.2500, L100.0100 #### [facility] [address] [place], [address] Consultation - Urologyon Consultation - Urology [facility] Medical Records Department [address] [place] [address] Consultation - Urology 07/12/24 0737 MR#: [id number] Acct: [id number] Name: LORI LYNCH Rep #: [id number] : 1945 78 From: Chucky Mckoy MD PCP: [facility] Status:ADM IN Location: [facility] [place] [id number] HPI Consult Data Date of Consult: 07/12/24 [...] have him go home with a catheter. COUNT INCLUDES THE [facility] Medical History Diabetes High cholesterol HTN [...] (Auto) 68.1, Lymph % (Auto) 9.5 L, [place] % (Auto) 18.1 H, Eos % (Auto) [...] 07/12/24 0738 Cosigner Signature (if applicable): CC: [facility] Signed Normal [facility] Basic Metabolic Profile (BMP )on 07-11-2024 BUN/CRE 19.6 RATIO Normal 08-15 [facility] Comment on above: Performed By: #### L 400.0001 #### [facility] [place], [address] CA,Total 8.1 mg/dL Low 8.5-10.1 [facility] Comment on above: Performed By: #### L 400.0001 #### [facility] [address] [place], [address] Chloride [Moles/Vol] 112 mmol/L High 98-107 [facility] Comment on above: Performed By: #### L 400.0001 #### [facility] [address] [place], [address] CO2 [Moles/Vol] 20.0 mmol/L Low 21.0-32.0 [facility] Comment on above: Performed By: #### L 400.0001 #### [facility] [address] [place], [address] Creatinine [Mass/Vol] 2.04 mg/dL High 0.70-1.30 [facility] Comment on above: Result Comment: The validity of the calculated GFR GFRAA in patients over 70 years has not been determined. Clinical correlation is essential. Performed By: #### L 400.0001 #### [facility] [address] [place], [address] ECRCL 34.04 ml/min Normal [facility] Comment on above: Performed By: #### L 400.0001 #### [facility] [address] [place], [address] EST GFR - AA 41 mL/min Low >60 [facility] Comment on above: Result Comment: Afri can Faroese GFR Calc Performed By: #### L 400.0001 #### [facility] [address] [place], [address] GAP 6 Normal 5-15 [facility] Comment on above: Performed By: #### L 400.0001 #### [facility] [address] [place], [address] GFR/1.73 sq M.predicted among non-blacks MDRD (S/P/Bld) [Vol rate/Area] 34 mL/min/{1.73_m2} Low >60 [facility] Comment on above: Result Comment: Non- GFR Calc Performed By: #### L 400.0001 #### [facility] [address] [place], [address] Glucose [Mass/Vol] 173 mg/dL High 74-106 [facility] Comment on above: Result Comment: Fast ing Glucose result greater than or equal to 126 mg/dL suggests DIABETES MELLITUS per A.D.A. criteria. Performed By: #### L 400.0001 #### [facility] [address] [place], [address] Potassium [Moles/Vol] 4.2 mmol/L Normal 3.5-5.1 [facility] Comment on above: Performed By: #### L 400.0001 #### [facility] [address] [place], [address] Sodium [Moles/Vol] 138 mmol/L Normal 136-145 [facility] Comment on above: Performed By: #### L 400.0001 #### [facility] [address] [place], [address] Urea nitrogen [Mass/Vol] 40 mg/dL High 7-18 [facility] Comment on above: Performed By: #### L 400.0001 #### [facility] [address] [place], [address] Bedside Glucoseon 07-11-2024 FINGERSTICK GLU 256 mg/dL High 74-106 [facility] Comment on above: Result Comment: JAYLENE GEMENT OF PATIENT CARE PER NURSING PROTOCOL Performed By: #### L 400.0001 #### [facility] [address] [place], [address] FINGERSTICK GLU 162 mg/dL High 74-106 [facility] Comment on above: Result Comment: JAYLENE GEMENT OF PATIENT CARE PER NURSING PROTOCOL Performed By: #### L 400.0001 #### [facility] [address] [place], [address] Consultation - Urologyon Consultation - Urology [facility] Medical Records Department [address] [address] Consultation - Urology 07/11/24 1037 MR#: [id number] Acct: [id number] Name: LORI LYNCH Rep #: [id number] : 1945 78 From: Chucky Mckoy MD PCP: [place] [facility] Status:ADM IN Location: [facility] [place] IL801-5 HPI Consult Data Date of Consult: 07/11/24 [...] trial will continue with antibiotics await cultures. COUNT INCLUDES THE [facility] Medical History Diabetes High cholesterol HTN [...] 77.2 H, Lymph % (Auto) 4.9 L, [place] % (Auto) 14.4 H, Eos % (Auto) [...] 07/11/24 1038 Cosigner Signature (if applicable): CC: [facility] Signed Normal [facility] Basic Metabolic Profile (BMP )on 07-10-2024 BUN/CRE 17.3 RATIO Normal 10-20 [facility] Comment on above: Performed By: #### L 100.0100, L500.2500 #### [facility] [address] [place], [address] CA,Total 8.5 mg/dL Normal 8.5-10.1 [facility] Comment on above: Performed By: #### L 100.0100, L500.2500 #### [facility] [address] [place], [address] Chloride [Moles/Vol] 110 mmol/L High 98-107 [facility] Comment on above: Performed By: #### L 100.0100, L500.2500 #### [facility] [address] [place], [address] CO2 [Moles/Vol] 19.0 mmol/L Low 21.0-32.0 [facility] Comment on above: Performed By: #### L 100.0100, L500.2500 #### [facility] [address] [place], [address] Creatinine [Mass/Vol] 2.37 mg/dL High 0.70-1.30 [facility] Comment on above: Result Comment: The validity of the calculated GFR GFRAA in patients over 70 years has not been determined. Clinical correlation is essential. Performed By: #### L 100.0100, L500.2500 #### [facility] [address] [place], [address] ECRCL 29.79 ml/min Normal [facility] Comment on above: Performed By: #### L 100.0100, L500.2500 #### [facility] [address] [place], [address] EST GFR - AA 34 mL/min Low >60 [facility] Comment on above: Result Comment: Afri can Faroese GFR Calc Performed By: #### L 100.0100, L500.2500 #### [facility] [address] [place], [address] GAP 8 Normal 5-15 [facility] Comment on above: Performed By: #### L 100.0100, L500.2500 #### [facility] [address] [place], [address] GFR/1.73 sq M.predicted among non-blacks MDRD (S/P/Bld) [Vol rate/Area] 28 mL/min/{1.73_m2} Low >60 [facility] Comment on above: Result Comment: Non- GFR Calc Performed By: #### L 100.0100, L500.2500 #### [facility] [address] [place], [address] Glucose [Mass/Vol] 212 mg/dL High 74-106 [facility] Comment on above: Result Comment: Gluc ose result greater than or equal to 200 mg/dL suggests DIABETES MELLITUS per A.D.A. criteria. Performed By: #### L 100.0100, L500.2500 #### [facility] [address] [place], [address] Potassium [Moles/Vol] 4.4 mmol/L Normal 3.5-5.1 [facility] Comment on above: Performed By: #### L 100.0100, L500.2500 #### [facility] [address] [place], [address] Sodium [Moles/Vol] 137 mmol/L Normal 136-145 [facility] Comment on above: Performed By: #### L 100.0100, L500.2500 #### [facility] [address] [place], [address] Urea nitrogen [Mass/Vol] 41 mg/dL High 7-18 [facility] Comment on above: Performed By: #### L 100.0100, L500.2500 #### [facility] [address] [place], [address] Bedside Glucoseon 07-10-2024 FINGERSTICK GLU 191 mg/dL High 74-106 [facility] Comment on above: Result Comment: JAYLENE NEGRO OF PATIENT CARE PER NURSING PROTOCOL Performed By: #### L 503.6005 #### [facility] [address] [place], [address] Consultation - Urologyon Consultation - Urology [facility] Medical Records Department [address] [place] [address] Consultation - Urology 07/10/24 1022 MR#: [id number] Acct: [id number] Name: LORI LYNCH Rep #: [id number] : 1945 78 From: Chucky Mckoy MD PCP: [facility] Status:ADM IN Location: [facility] [place] [id number] HPI Consult Data Date of Consult: 07/10/24 [...] in his prostate. This was done in [place]. I attempted to place the catheter bedside [...] this procedure and then he was agreeable. COUNT INCLUDES THE [facility] Medical History Diabetes High cholesterol HTN [...] 77.2 H, Lymph % (Auto) 5.9 L, [place] % (Auto) 14.6 H, Eos % (Auto) 0.3, Baso % (Auto) 0.4, Absolute Neuts (auto) 23.5 H, Absolute Lymphs (auto) 1.80, Nucleated RBC % 0, Differential Comment SCANNED, Diff Path Review May , Plt Morphology Comment LARGE, Polychromasia 2+, Anisocytosis [...] Clarity Turbid, Urine pH 6.5, Ur Specific [place] 1.010, U rine Protein 100 H, Urine [...] 81.1 H, Lymph % (Auto) 4.2 L, [place] % (Auto) 13.2 H, Eos % (Auto) [...] carcinoma, pr (more content not included)... Normal [facility] MR/POSTOP.ANEon 07-10-2024 MR/POSTOP.[facility] Medical Records Department [address] [place] [address] Anesthesia Postop Eval I 07/10/24 1140 MR#: [id number] Acct: [id number] Name: LORI LYNCH Rep #: [id number] : 1945 78 From: William Lawson MD PCP: [facility] Status:ADM IN Y Race: C Location: [place] [id number] Anesthesia: Postop Eval I Current Vital Signs [...] 0756 Date William Lawson MD Cosigner Signature: Date CC: Signed Normal [facility] MR/[id number] 07-10-2024 MR/POSTOPAN2 [facility] Medical Records Department [address] [place] [address] Anesthesia Postop Eval II 07/10/24 1243 MR#: [id number] Acct: [id number] Name: LORI LYNCH Rep #: [id number] : 1945 78 From: Angelica Giles PCP: [facility] Status:ADM IN Y Race: C Location: MS3 [id number] Anesthesia Postop Eval I Sum Anesthesia Postop Eval I Summary Anesthesia Postop Eval I Summary: Anesthesia Postop Eval I: Assessment Summary Airway patent Spontaneous unlabored respirations Mental status Awake,Calm 07/10/24 12:41 STAKE SETTER.SHOL nausea No 07/10/24 12:41 STAKE SETTER.SHOL Vomiting No 07/10/24 12:41 STAKE SETTER.SHOL Anesthesia Postop Eval I: Fluid Summary Crystalloid volume administer (ml) Colloids volume administered ( ml) Blood Product volume administered (ml) Total IV fluid infused Anesthesia Postop Eval I: Summary Notes Anesthesia Complication Anesthesia Complication Comment: Post-operative progress note Anesthesia: Postop Eval II Evaluation Mental status: Awake and Calm Pain Level: 0 nausea: No Vomiting: No 07/10/24 1243 Date Angelica De Souzaigner Signature: Date CC: Signed Normal [facility] MR/POSTOPAN2 [facility] Medical Records Department [address] [facility] [address] [place] [address] Anesthesia Postop Eval II 07/10/24 1241 MR#: [id number] Acct: [id number] Name: LORI LYNCH Rep #: [id number] : 1945 78 From: Angelica Giles PCP: [facility] Status:ADM IN Y Race: C Location: MS3 [id number] Anesthesia Postop Eval I Sum Anesthesia Postop [...] No Vomiting: No 07/10/24 1242 Date Angelica Malhotraister Nolviaigner Signature: Date CC: Signed Normal [facility] Operative Reporton 4 Operative Report [facility] Medical Records Department [address] [place] [address] Operative Report 07/10/24 1223 MR#: [id number] Acct: [id number] Name: LORI LYNCH Rep #: [id number] : 1945 78 From: Chucky Mckoy MD PCP: [facility] Status:ADM IN Location: [place] [address] Report of Operation Date of Procedure: 07/10/24 [...] when inside the bladder with a 21 British rigid cystourethroscope the entire length of the [...] and over the wire went with a [place] tip catheter and put a catheter into [...] of Anesthesia: IV Sedation Drains: 18 fr [place] tip diego Admit VTE Documentation VTE Present on Admission: No VTE Mechan Device Prophylaxis: SCD's VTE Pharm Prophylaxis ordered?: No 07/10/24 1225 Cosigner Signature (if applicable): CC: Dr. Chucky Mckoy MD; Dr. Olman Mcclellan MD; [facility] Signed Normal [facility] Urine Cultureon 07-10-2024 URC Culture exhibits no growth. Normal [facility] Comment on above: Performed By: #### M 100.2200 #### [facility] [address] [facility] [place], [address] 12 Lead EKGon 07-09-[address] [facility] Cardiovascular Services [address] [place] [address] 12 Lead EKG 07/09/24 1243 MR#: [id number] Acct: [id number] Name: LORI LYNCH Rep #: [id number] : 1945 78 From: Wolfgang Hooker MD Attending Dr: Dr. Apple Chavez MD Status: AD M IN Ordering Dr: Omar Elliott DO Date: 07/09/24 Location: MS3 Sex: M C Admitted: 07/09/24 Test Reason [...] Borderline ECG Confirmed by Wolfgang Hooker ([id number]), copy editor ELEAZAR CHILDERS ([id number]) on 07/12/2024 11:16:41 AM Referred By: Confirmed By:Wolfgang Hooker 07/12/24 1117 Date Wolfgang Hooker MD CC: Dr. Apple Chavez MD; Dr. Omar Elliott DO; [facility] Signed Normal [facility] Abdomen/Pelvis without Conto n 07-09-2024 Abdomen/Pelvis without Cont [facility] Imaging Services [address] [place] [id number] Abdomen/Pelvis without Cont MR#: [id number] Acct: [id number] Name: LORI LYNCH Rep #: [id number] : 1945 M 78 From: Nichole rosen MD PCP: [facility] Status: ADM IN Study: Abdomen/Pelvis without Cont Date of Exam: 06/27 01/17 Exam# [id number] Ordering Dr: Olman Mcclellan MD [id number] EXAM: CT ABDOMEN AND PELVIS WITHOUT INTRAVENOUS [...] support , CC: Dr. Olman Mcclellan MD; [facility] Insulator Apprentice: Signed Normal [facility] Basic Metabolic Profile (BMP )on 07-09-2024 BUN/CRE 15.8 RATIO Normal 10-20 [facility] Comment on above: Order Comment: 'TROP ' Serial specimen #1, #2 or #3: 1 Performed By: #### M 100.2200 #### [facility] [address] [place], [address] CA,Total 9.3 mg/dL Normal 8.5-10.1 [facility] Comment on above: Order Comment: 'TROP ' Serial specimen #1, #2 or #3: 1 Performed By: #### M 100.2200 #### [facility] [address] [place], [address] Chloride [Moles/Vol] 108 mmol/L High 98-107 [facility] Comment on above: Order Comment: 'TROP ' Serial specimen #1, #2 or #3: 1 Performed By: #### M 100.2200 #### [facility] [address] [place], [address] CO2 [Moles/Vol] 19.0 mmol/L Low 21.0-32.0 [facility] Comment on above: Order Comment: 'TROP ' Serial specimen #1, #2 or #3: 1 Performed By: #### M 100.2200 #### [facility] [address] [place], [address] Creatinine [Mass/Vol] 2.73 mg/dL High 0.70-1.30 [facility] Comment on above: Order Comment: 'TROP ' Serial specimen #1, #2 or #3: 1 Result Comment: The validity of the calculated GFR GFRAA in patients over 70 years has not been determined. Clinical correlation is essential. Performed By: #### M 100.2200 #### [facility] [address] [place], [address] EST GFR - AA 29 mL/min Low >60 [facility] Comment on above: Order Comment: 'TROP ' Serial specimen #1, #2 or #3: 1 Result Comment: Afri can Faroese GFR Calc Performed By: #### M 100.2200 #### [facility] [address] [place], [address] GAP 11 Normal 5-15 [facility] Comment on above: Order Comment: 'TROP ' Serial specimen #1, #2 or #3: 1 Performed By: #### M 100.2200 #### [facility] [address] [place], [address] GFR/1.73 sq M.predicted among non-blacks MDRD (S/P/Bld) [Vol rate/Area] 24 mL/min/{1.73_m2} Low >60 [facility] Comment on above: Order Comment: 'TROP ' Serial specimen #1, #2 or #3: 1 Result Comment: Non- GFR Calc Performed By: #### M 100.2200 #### [facility] [address] [place], [address] Glucose [Mass/Vol] 224 mg/dL High 74-106 [facility] Comment on above: Order Comment: 'TROP ' Serial specimen #1, #2 or #3: 1 Result Comment: Gluc ose result greater than or equal to 200 mg/dL suggests DIABETES MELLITUS per A.D.A. criteria. Performed By: #### M 100.2200 #### [facility] [address] [place], [address] Potassium [Moles/Vol] 4.5 mmol/L Normal 3.5-5.1 [facility] Comment on above: Order Comment: 'TROP ' Serial specimen #1, #2 or #3: 1 Performed By: #### M 100.2200 #### [facility] [address] [place], [address] Sodium [Moles/Vol] 138 mmol/L Normal 136-145 [facility] Comment on above: Order Comment: 'TROP ' Serial specimen #1, #2 or #3: 1 Performed By: #### M 100.2200 #### [facility] [address] [place], [address] Urea nitrogen [Mass/Vol] 43 mg/dL High 7-18 [facility] Comment on above: Order Comment: 'TROP ' Serial specimen #1, #2 or #3: 1 Performed By: #### M 100.2200 #### [facility] [address] [place], [address] CTA Head AND Neck W/ Contras ton 07-09-2024 CTA Head AND Neck W/ Contrast [facility] Imaging Services [address] [place], [place] [address] CTA Head AND Neck W/ Contrast MR#: [id number] Acct: [id number] Name: LORI LYNCH Rep #: [id number] : 1945 M 78 From: Woo galicia MD PCP: [facility] Status: REG ER Study: CTA Head AND Neck W/ Contrast Date of Exam: Exam# [id number] Ordering Dr: Omar Elliott DO [id number] STUDY: CT BRAIN WITHOUT CONTRAST REASON FOR [...] There is no demonstrated aneurysm of the ek[place] of [place]. no demonstrated thrombus or occlusion [...] plaque format (more content not included)... Normal [facility] Chest 1 Viewon 07-09-[address] [facility] Imaging Services [address] [place], [place] [address] Chest 1 View MR#: [id number] Acct: [id number] Name: LORI LYNCH Rep #: [id number] : 1945 78 From: Patrick Herrera MD PCP: [facility] Status: REG ER Study: Chest 1 View Date of Exam: 07/09/24 Exam# [id number] Ordering Dr: Omar Elliott DO [id number] STUDY: X-RAY CHEST REASON FOR EXAM: Male, [...] Signed: Patrick Herrera MD at 14:24 EDT , CC: Dr. Omar Elliott DO; [facility] Insulator Apprentice: Signed Normal [facility] Emergency Department Summary on 07-09-2024 Emergency Department Summary [facility] Medical Records Department [address] [place] [address] Emergency Department Summary 07/09/24 MR#: [id number] Acct: [id number] Name: LORI LYNCH Rep #: [id number] : 1945 78 From: Omar Elliott DO PCP: [facility] Status:ADM IN Location: [facility] [place] TG773-[address] Greg Ruiz MD on [...] note, the patient has a urologist in [place] affiliated with the [place], he states her name is Dr. Alvarez. He has [place] insurance. The patient prefers to stay here and not go to the [place] or go to [place] at this time. Hospitalist put admission orders and, at this time he does not require the ICU based on his clinical status and hemodynamics, so I am okay with him continuing to go upstairs to medical floor/PCU. 07/09/242111 Cosigner Signature (if applicable): cc: [facility] * Signed HPI History of Present Illness Chief Complaint: Fatigue Narrative Narrative: Patient is a 78-year-old male with past medical hypertension, hypercholesteremia, prostate enlargement, lung cancer who presented to the [facility] part with a chief complaint of difficulty [...] brought him here for the evaluation management [facility] Medical History Diabetes High cholesterol HTN [...] Abdomen: Sof (more content not included)... Normal [facility] H AND P Exam - Hospitaliston 07-09-2024 H&P Exam - Hospitalist [facility] Medical Records Department [address] [place] [address] H P Exam - Hospitalist 07/09/24 1815 MR#: [id number] Acct: [id number] Name: LORI LYNCH Rep #: [id number] : 1945 78 From: Olman Mcclellan MD PCP: [facility] Status:ADM IN Location: [facility] [place] BN035-0 HPI - General General Date of Admission: [...] to warm up over the last week. COUNT INCLUDES THE [facility] Medical History Diabetes High cholesterol HTN [...] 5/5 streng (more content not included)... Normal [facility] Kidney and Bladderon [address] [facility] Imaging Services [address] [place], [place] [address] Kidney and Bladder MR#: [id number] Acct: [id number] Name: LORI LYNCH Rep #: [id number] : 1945 M 78 From: Lex Cottrell MD PCP: [facility] Status: ADM IN Study: Kidney and Bladder Date of Exam: 07/09/24 Exam# [id number] Ordering Dr: Omar Elliott DO [id number] STUDY: RENAL ULTRASOUND - COMPLETE REASON FOR [...] EDT , CC: Dr. Omar Elliott, DO; [facility] Insulator Apprentice: Signed Normal [facility] L501.4020on 07-09-2024 TROPONIN-I HS 18 pg/mL Normal 3.0-78.0 [facility] Comment on above: Order Comment: 'TROP ' Serial specimen #1, #2 or #3: 1 Result Comment: Shant blanca Note: New Test Units and Gender Specific Reference Ranges. For more information see Policy Stat Procedure [place] High Sensitivity Troponin (TNIH) and attachments. Performed By: #### M 100.2200 #### [facility] [address] [place], [address] Lactic Acidon 07-09-2024 Lactate [Moles/Vol] 1.1 mmol/L Normal 0.4-1.9 [facility] Comment on above: Performed By: #### L 100.0100, L500.2500 #### [facility] [address] [place], [address] Lactate [Moles/Vol] 2.1 mmol/L Invalid Interpretation Code 0.4-1.9 [facility] Comment on above: Order Comment: Y Result Comment: Crit ical Result(s) Called at: 14:37:22 07/09/2024 by: Yari Delgadillo to Dasia Casillas. Results read back by same. Performed By: #### L 503.6005 #### [facility] [address] [place], [address] Liver Profileon 07-09-2024 Albumin [Mass/Vol] 2.8 g/dL Low 3.2-5.0 [facility] Comment on above: Order Comment: 'TROP ' Serial specimen #1, #2 or #3: 1 Performed By: #### M 100.2200 #### [facility] [address] [place], [address] ALK P 116 U/L Normal 45-117 [facility] Comment on above: Order Comment: 'TROP ' Serial specimen #1, #2 or #3: 1 Performed By: #### M 100.2200 #### [facility] [address] [place], [address] ALT [Catalytic activity/Vol] 15 U/L Low 16-61 [facility] Comment on above: Order Comment: 'TROP ' Serial specimen #1, #2 or #3: 1 Performed By: #### M 100.2200 #### [facility] [address] [place], [address] AST [Catalytic activity/Vol] 23 U/L Normal 15-37 [facility] Comment on above: Order Comment: 'TROP ' Serial specimen #1, #2 or #3: 1 Performed By: #### M 100.2200 #### [facility] [address] [place], [address] Bilirubin [Mass/Vol] 0.50 mg/dL Normal 0.20-1.00 [facility] Comment on above: Order Comment: 'TROP ' Serial specimen #1, #2 or #3: 1 Result Comment: For patients on eltrombopag therapy, use of Dimension [place] TBIL is not recommended. Performed By: #### M 100.2200 #### [facility] [address] [place], [address] Bilirubin.direct [Mass/Vol] 0.14 mg/dL Normal 0.00-0.30 [facility] Comment on above: Order Comment: 'TROP ' Serial specimen #1, #2 or #3: 1 Performed By: #### M 100.2200 #### [facility] [address], [address] Globulin (S) [Mass/Vol] 4.7 g/dL High 2.2-4.2 [facility] Comment on above: Order Comment: 'TROP ' Serial specimen #1, #2 or #3: 1 Performed By: #### M 100.2200 #### [facility] [address] [place], [address] T PROT 7.5 g/dL Normal 6.4-8.2 [facility] Comment on above: Order Comment: 'TROP ' Serial specimen #1, #2 or #3: 1 Performed By: #### M 100.2200 #### [facility] [address] [place], [address] M100.678on 07-09-2024 M100.678 Pending SARS-CoV-2 (COVID 19) Negative INFLUENZA A Negative INFLUENZA B Negative RSV PCR Negative Normal [facility] Comment on above: Performed By: #### M 100.2200 #### [facility] [address] [place], [address] Partial Thromboplast Timeon 07-09-2024 aPTT Coag (Bld) [Time] 27.5 s Normal 24.1-36.2 [facility] Comment on above: Performed By: #### M 100.2200 #### [facility] [address] [place], [address] Prothrombin Time w/INRon INR Coag (PPP) [Relative time] 1.2 {INR} Normal [facility] Comment on above: Performed By: #### M 100.2200 #### [facility] [address] [place], [address] PT Coag (PPP) [Time] 15.6 s High 11.7-14.9 [facility] Comment on above: Performed By: #### M 100.2200 #### [facility] [facility] [address] [place], [address] Urinalysis, Completeon 07-09 RBC 50-100 SEEN Normal 0-5 [facility] Comment on above: Order Comment: Y Performed By: #### L 503.6005 #### [facility] [address] [place], [address] WBC 25-50 SEEN Normal 0-5 [facility] Comment on above: Order Comment: Y Performed By: #### L 503.6005 #### [facility] [address] [place], [address] BACTERIA 0 SEEN Normal None Seen [facility] Comment on above: Order Comment: Y Performed By: #### L 503.6005 #### [facility] [address] [place], [address] EPI,SQUAMOUS 0 SEEN Normal 0-5 [facility] Comment on above: Order Comment: Y Performed By: #### L 503.6005 #### [facility] [address] [place], [address] Mucus Ql (Urine sed) 0 SEEN Normal [facility] Comment on above: Order Comment: Y Performed By: #### L 503.6005 #### [facility] [address] [place], [address] 36on 12-05-2022 36 Patient called in an d states he does not feel that tolterodine has had much of an effect and wanted to see if he could increase his dosage. I advised him per Yadi's note that this medication could take 6-8 weeks to see full affect. He verbalizes understanding and states he will give it more time to work. Normal [facility] 36on 11-07-2022 36 Spoke with patient a nickolas relayed Yadi's note to him verbatim. He verbalizes understanding of all information provided, but states he needs prescription [place] [facility] [place]. Rx switched to [place] [facility] per patient request. [facility] 36 Rx for tolterodine (Detrol [place]) sent to [facility] in [place]. Please advise him it could take 6-8 weeks to see full effect of the medication. If the medication causes any bothersome side effects such as dry eye, dry mouth, constipation, or difficulty urinating please have him call us. Thanks. [facility] 36 Returned call to the patient and [...] is not helping. Per previous TE's the [place] will not pay for myrbetriq. Patient aware to contact PCP if current gas pain is persistent. Patient voiced understanding. [place] [address] Name of caller: Phil Contact phone number: [phone] Relationship to Patient: patient Provider: Rabia Practice: [facility] Chief Complaint/Reason for Call: Pt stating that he has been having gas pain with flatulence. He has tried beano, gas x and nothing has worked. He wants to know if something can be called into [facility] on [address] ph [phone]. Please call to let him know something not too expensive, by the way, will be called in for him or discuss further. Best time of day caller can be reached: Patient advised that office/PCP has 24-48 business hours to return their call: [place] [address]on 11-05-2022 36 Patient informed of medication increase and needing 6 weeks follow up and PVR. Patient verbalized understanding and have no further questions or concerns at this time. [place] [address]on 11-04-2022 36 Okay increased trosp ium to 20mg BID but still needs someone to schedule an appointment in 6 weeks to assess medication effectiveness and for PVR check. Thanks [facility] 36 Called and spoke wit h patient. He states [facility] Myrbetri[facility]. He wants to know if he can try a stronger dose of trospium instead. Please advise. [facility] 36 Rx sent to [facility] for Myrbetric 25 mg for patient to try. Please schedule an appointment in 6 weeks to assess medication effectiveness and for PVR check. Thanks [facility] 36 Patient calling in o n clinical vm stating that the trospium has been ineffective on his symptoms, patient states he's urinating every 20 minutes throughout the day and every hour at night, patient is very frustrated at the lack of symptom relief that he's experienced. He would like to try something else. Please advise, thank you. [facility] ADDENDUMNOTEon 11-04-2022 ADDENDUMNOTE Addended by: SANDI PENA on: 11/04/2022 02:42 PM Modules accepted: Orders [facility] ADDENDUMNOTE Addended by: LOREN TREADWELL on: 11/04/2022 09:08 AM Modules accepted: Orders [facility] 36on 10-25-2022 36 Lvm that script was sent into [facility] pharmacy today. Call if he has any further questions or concerns. [facility] 36 Sent. Please let pat ient know [facility] 36 Pt called in and sta stephanie, Dr Camarillo was supposed to send in [place] to the [facility] last Friday, but the [place] says they haven't received anything yet. Someone needs to get their act together! I need this medicine! You need to let me know what's going on! Upon investigation, Trospium appears to have been sent to [facility] in [place]. Pt would prefer Rx sent to [facility]. Pharmacy in chart and below. [facility] - [place], [place] - [address] [address] [[id number]] Routing to Dr Camarillo and APPs to send to [facility]. Thank you. [facility] 36on 10-18-2022 36 Called and spoke wit h Patient, advised of Kari's message. He will start trospium and update in 4 weeks. Normal [facility] Progress Noteon 10-18-2022 Progress Note Heri Camarillo [...] stated that they are currently in the [facility]. If the patient is a minor, [...] mirebegron. Cx: <10K (more content not included)... [place] [address]on 10-17-2022 36 Please notify the patient Gemtesa and Myrbetriq not covered. I recommend he start trospium 20 mg daily, if medication improved symptoms some will increase to twice daily after 4 weeks. [place] [address] Spoke with Maxwell valladares initiate prior authorization, they sate that both Gemtesa and Myrbetriq are excluded from the patients prescription drug benefit. Therefore, they will not allow for authorization to be submitted. [address] 10-15-2022 36 Notified patient deirdre t medication was sent to [place]. Pt expressed thanks for sending it there. Advised pt to call office if any questions or concerns. [place] [address] Rx sent to new pharmacy. [place] [address] Pt called in leaving stating that script sent to [facility] pharmacy Vibegron 75 mg PO Daily is $480 and too expensive. Pt would like script to be changed to [facility] in [place] so that he only has to pay the co-pay. Please advise. Thank you. [place] [address] Patient informed of message below. [place] [address] ----- Message from TALITA Johnson CNP sent at 10/14/2022 4:45 PM EST ----- Please inform patient that urine culture was negative for infection. [place] [address] ----- Message from TALITA Johnson CNP sent at 10/14/2022 4:45 PM EST ----- Please inform patient that urine culture was negative for infection. [facility] 36on 10-14-2022 36 Gemtesa 75 mg is prescribed, please complete PA for this drug. Thanks! [facility] 36on 10-11-2022 36 Both medications tasha l have the same copay for the patient through his insurance. However, both medications require a PA. Please clarify which medication is preferred for the patient and we will submit authorization. Thank you! [facility] 36 I sent in alternativ e medication. Would Gemtesa be cheaper for the patient rather than Myrbetriq? [facility] 36on 10-10-2022 36 Please advise on alternative medication for patient [facility] 36 Name of caller: J Luis rosen Contact phone number: [phone] Relationship to Patient: patient Provider: NP. Paco [...] business hours to return their call: Yes [facility] 36 Returned call to pt. Made appt for pt to follow up with GIA this afternoon. Voiced understanding. No other questions at this time. [facility] 36 S: Patient spoke wit h [facility] nurse regarding frequency B: Onset of symptoms/concern [...] than usual (i.e., frequency) Protocols used: Urinary Ayrkiggg-[id number] [facility] Office Visiton 10-10-2022 Follow-up visit [id number] Tushar Lynch 1945 M Date Provider Department Center 10/10/2022 [id number] GELLER [facility] URO None No family history on file Level of Service:89346 ND OFFICE/OUTPATIENT ESTABLISHED MOD MDM 30-39 MIN Reason for Visit and Comments: Urinary Frequency [323231] - Pt has been having frequency every 15-25 minutes since Aquablation surgery, pt denies burning or blood in the urine Normal [facility] Progress Noteon 10-10-2022 Progress Note PVR- 0 mL Normal [facility] Progress Note Paco Geller DNP, AP RN 10/10/2022 at 3:31 PM Urology Office Visit [facility] [place] [address] [facility] [address] Dept: [phone] Dept Loc: [phone] PATIENT NAME: Lori Lynch DATE OF : [...] 8 days (around 10/18/2022). Paco Geller, STEFANIA, NURSE [place], [facility] Subjective: Mr. Lynch is a 77 [...] 10/10/2022 Comment: >=300mg/d (more content not included)... [address] 09-27-2022 36 Received VM from pt stating [...] urinate, or intractable pain. Pt verbalized understanding. [address] 09-16-2022 36 Patient left stat ing he [...] today at 1pm. Patient verbalizes understanding. Normal [facility] Progress Noteon 09-16-2022 Progress Note PVR 0ml Normal [facility] Office Visiton 08-27-2022 Follow-up visit [id number] SyedTushar linder 1945 M Date Provider Department Center 08/27/2022 [id number], URO [place] [facility] U[facility] None No family history on file Level of Service:01857 ND OFFICE/OUTPT VISIT,PROCEDURE ONLY Reason for Visit and Comments: Benign Prostatic Hypertrophy [[id number]] - Void Trial post Aquablation Normal [facility] Creatinineon 08-23-2022 Creatinine [Mass/Vol] 0.91 mg/dL Normal 0.52-1.25 [facility] Comment on above: Performed By: #### C RTN3 #### [address] [address] GFR/1.73 sq M.predicted among blacks MDRD (S/P/Bld) [Vol rate/Area] mL/min/{1.73_m2} Normal >60 [facility] Comment on above: Performed By: #### C RTN3 #### [place] [address] [place] [address] GFR/1.73 sq M.predicted among non-blacks MDRD (S/P/Bld) [Vol rate/Area] 80.4 mL/min/{1.73_m2} Normal >60 [facility] Comment on above: Result Comment: KDIG [...] secretion. Performed By: #### C RTN3 #### [facility] [address], [place] Glucose,Bedsideon 08-23-2022 Glucose [Mass/Vol] 216 mg/dL [address] Comment on above: Result Comment: Test performed by glucose meter. Results may be 10%-15% lower than serum/plasma values. (CLIA ID [id number]) Performed By: #### B GLU #### [facility] [address], [place] Glucose,Bedsideon 08-22-2022 Glucose [Mass/Vol] 192 mg/dL [facility] [address] Comment on above: Result Comment: Test performed by glucose meter. Results may be 10%-15% lower than serum/plasma values. (CLIA ID [id number]) Performed By: #### B GLU #### [facility] [address], [place] Glucose [Mass/Vol] 176 mg/dL [facility] [address] Comment on above: Result Comment: Test performed by glucose meter. Results may be 10%-15% lower than serum/plasma values. (CLIA ID [id number]) Performed By: #### B GLU #### [facility] [address], [place] Glucose [Mass/Vol] 130 mg/dL High [address] Comment on above: Result Comment: Test performed by glucose meter. Results may be 10%-15% lower than serum/plasma values. (CLIA ID [id number]) Performed By: #### B GLU #### [facility] [address], [place] Op Noteon 08-22-2022 Op Note Operative Note PRE-OP DIAGNOSIS: BPH with obstruction. POST-OP DIAGNOSIS: Same OPERATION: Cystoscopy, Prostate Aquablation (CPT 0421T) SURGEON: Heri Camarillo M.D. , Franc Zambrano M.D. PSYCHOPAEDIC NURSE: ANESTHESIA: General BLOOD LOSS:<20cc MEDICATIONS: Ancef 2 [...] and to note prostate anatomy. The 24 British AQUABEAM Handpiece tip was inserted into the [...] bleeders were controlled. Hemostasis was obtained., 24 British Simplastic catheter was inserted, balloon inflated to 30 cc. Diego irrigated light pink. Continuous bladder irrigation was started. Ultrasound probe was then removed. Belladonna & opium suppository is not available at this time The patient was safely moved to the transportation cart, and transported to the recovery area in stable condition. Heri Camarillo M.D. 08/22/2022 Normal [facility] CULTURE URINEon 08-17-2022 CULTURE URINE CULTURE URINE --> Status: F Normal urogenital chanda present. Normal [facility] Comment on above: Performed By: #### C /UR #### [address] [address] Hemoglobin AND Hematocriton 08-15-2022 Hematocrit (Bld) [Volume fraction] 46.1 % Normal 40.0-52.0 [facility] Comment on above: Performed By: #### H GHCT #### [facility] [address] [place] [address] Hemoglobin (Bld) [Mass/Vol] 15.1 g/dL Normal 13.0-18.0 [facility] Comment on above: Performed By: #### H GHCT #### [address] [address] Hemoglobin and HematocritOrd ered By: Thuy Mercedes on 08-15-2022 Hematocrit (Bld) [Volume fraction] 46.1 % 40.0 - 52.0 % [facility] Hemoglobin (Bld) [Mass/Vol] 15.1 g/dL 13.0 - 18.0 g/dL [facility] Hemoglobin and Hematocriton 08-15-2022 Test Performed by [facility], [address] [place] [id number] [facility] Absolute lymphocyte counton 03-14-2022 Lymphocytes Auto (Unsp spec) [#/Vol] 2.42 10*3/uL 0.83-4.51 [facility] Work Phone: Basophil percentageon 2021 Basophils/100 WBC (Bld) 0.8 % 0-1 [facility] Work Phone: Chloride [Moles/Vol] 102 mmol/L 98-107 [facility] Work Phone: Eosinophils/100 WBC (Bld) 4.1 % 0-5 [facility] Work Phone: Glucose [Mass/Vol] 179 mg/dL 74-106 [facility] Work Phone: Comment on above: Fasting Glucose resu lt greater than or equal to 126 mg/dL suggests DIABETES MELLITUS per A.D.A. criteria. Neutrophils (Bld) [#/Vol] 5.7 10*3/uL 2.0-7.7 [facility] Work Phone: Neutrophils/100 WBC (Bld) 55.7 % 47-70 [facility] Work Phone: Potassium [Moles/Vol] 4.1 mmol/L 3.5-5.1 [facility] Work Phone: Sodium [Moles/Vol] 139 mmol/L 136-145 [facility] Work Phone: WBC (Bld) [#/Vol] 10.2 10*3/uL 4.4-11.0 [facility] Work Phone: Blood erythrocytes count (nu mber/volume)on 03-14-2022 RBC (Bld) [#/Vol] 5.36 10*6/uL 4.6-6.2 [facility]: Blood hemoglobin measurement (mass/volume)on 03-14-2022 Hemoglobin (Bld) [Mass/Vol] 15.0 g/dL 13.0-16.5 [facility] Work Phone: Blood lymphocytes/100 leukoc yteson 03-14-2022 Lymphocytes/100 WBC (Bld) 23.7 % 19-41 [facility] Work Phone: Blood manual differential co mment interpretation (narrative result)on 03-14-2022 Manual differential comment Ed (Bld) [Interp] SCANNED [facility] Work Phone: Blood monocytes/100 leukocyt eson 03-14-2022 Monocytes/100 WBC (Bld) 15.2 % 0-10 [facility] Work Phone: Blood platelet mean volumeon 03-14-2022 Platelet mean volume (Bld) [Entitic vol] 10.7 fL 6.2-12.0 [facility] Work Phone: Determination of erythrocyte mean corpuscular volume (MCV)on 03-14-2022 MCV (RBC) [Entitic vol] 85.8 fL 80-94 [facility] Work Phone: Hematocrit Auto (Bld) [Volum e fraction]on 03-14-2022 Hematocrit (Bld) [Volume fraction] 46.0 % 40-54 [facility] Work Phone: Laboratory - Chemistry and C hemistry - challengeon 03-14-2022 CO2 [Moles/Vol] 30.0 mmol/L 21.0-32.0 [facility] Work Phone: Urea nitrogen/Creatinine [Mass ratio] 17.6 mg/mg 10-20 [facility] Work Phone: Laboratory - Hematology and Cell countson 03-14-2022 Erythrocyte distribution width (RBC) [Entitic vol] 52.6 fL 35.1-43.9 [facility] Work Phone: Erythrocyte distribution width (RBC) [Ratio] 16.9 % 11.6-14.6 [facility] Work Phone: Immature granulocytes/100 WBC (Bld) 0.500 % 0.0-0.9 [facility] Work Phone: Comment on above: IG% - Immature Granu locytes (promyelocytes, myelocytes and metamyelocytes) > 1% indicates that a LEFT SHIFT is Present. MCH (RBC) [Entitic mass] 28.0 pg 27.0-32.0 [facility] Work Phone: Nucleated RBC/100 WBC (Bld) [Ratio] 0 % 0-5 [facility] Work Phone: MCHC Auto (RBC) [Mass/Vol]on 03-14-2022 MCHC (RBC) [Mass/Vol] 32.6 g/dL 32-36 [facility] Work Phone: No Panel Informationon 03-14 Estimated Creatinine Clearance Calc 47.88 ml/min [facility] Work Phone: Estimated GFR (MDRD) Amer 72 mL/min >60 [facility] Work Phone: Comment on above: GFR Calc Estimated GFR (MDRD) Non-Af Amer 59 mL/min >60 [facility] Work Phone: Comment on above: Non- GFR Calc Troponin I High Sensitivity 12 pg/mL 3.0-78.0 [facility] Work Phone: Comment on above: Please Note: New Reyna t Units and Gender Specific Reference Ranges. For more information see Policy Stat Procedure [place] High Sensitivity Troponin (TNIH) and attachments. Platelets bldon 03-14-2022 Platelets (Bld) [#/Vol] 173 10*3/uL 150-450 [facility] Work Phone: Serum or plasma calcium angle urement (mass/volume)on 03-14-2022 Calcium [Mass/Vol] 9.4 mg/dL 8.5-10.1 [facility] Work Phone: Serum or plasma creatinine m easurement (mass/volume)on 03-14-2022 Creatinine [Mass/Vol] 1.25 mg/dL 0.70-1.30 [facility] Work Phone: Comment on above: The validity of the calculated GFR & GFRAA in patients over 70 years has not been determined. Clinical correlation is essential. Serum or plasma urea nitroge n measurement (mass/volume)on 03-14-2022 Urea nitrogen [Mass/Vol] 22 mg/dL 7-18 [facility] Work Phone: Thin prep Papanicolaou smear with manual screeningon 03-14-2022 Thin prep Papanicolaou smear with manual screening 7 03-10 [facility] Work Phone: Vital Signs Date Time Vital Sign Value Performing Clinician Faci lity 05-26-2025 20:25-0400 Body temperature 98.2 [degF] [facility] 05-26-2025 20:25-0400 Diastolic blood pressure 69 mm[Hg] [facility] 05-26-2025 20:25-0400 Heart rate 65 /min [facility] 05-26-2025 20:25-0400 Respiratory rate 16 /min [facility] 05-26-2025 20:25-0400 SaO2% (BldA) [Mass fraction] 97 % [facility] 05-26-2025 20:25-0400 Systolic blood pressure 140 mm[Hg] [facility] 05-26-2025 18:22-0400 Body height 172.[address] [facility] 05-23-2025 14:00-0400 Diastolic blood pressure 66 mm[Hg] [facility] 05-23-2025 14:00-0400 Heart rate 60 /min [facility] 05-23-2025 14:00-0400 Respiratory rate 13 /min [facility] 05-23-2025 14:00-0400 SaO2% (BldA) [Mass fraction] 94 % [facility] 05-23-2025 14:00-0400 Systolic blood pressure 133 mm[Hg] [facility] 05-23-2025 11:15-0400 Inhaled oxygen flow rate 1 L/min [facility] 05-23-2025 09:27-0400 Body mass index (BMI) [Ratio] 32.6 kg/m2 [facility] 05-23-2025 09:27-0400 Body temperature 97 [degF] [facility] 05-23-2025 09:27-0400 Body weight 97.[address] [facility] 05-09-2025 19:44-0400 Body height 172.[address] [facility] 05-09-2025 19:44-0400 Body mass index (BMI) [Ratio] 27.4 kg/m2 [facility] 05-09-2025 19:44-0400 Body temperature 98 [degF] [facility] 05-09-2025 19:44-0400 Body weight 81.[address] [facility] 05-09-2025 19:44-0400 Diastolic blood pressure 64 mm[Hg] [facility] 05-09-2025 19:44-0400 Heart rate 81 /min [facility] 05-09-2025 19:44-0400 Respiratory rate 18 /min [facility] 05-09-2025 19:44-0400 SaO2% (BldA) [Mass fraction] 96 % [facility] 05-09-2025 19:44-0400 Systolic blood pressure 147 mm[Hg] [facility] 05-08-2025 09:28-0400 Body temperature 98.1 [degF] [facility] 05-08-2025 09:28-0400 Diastolic blood pressure 89 mm[Hg] [facility] 05-08-2025 09:28-0400 Heart rate 72 /min [facility] 05-08-2025 09:28-0400 Respiratory rate 18 /min [facility] 05-08-2025 09:28-0400 SaO2% (BldA) [Mass fraction] 99 % [facility] 05-08-2025 09:28-0400 Systolic blood pressure 157 mm[Hg] [facility] 05-08-2025 07:11-0400 Body height 172.[address] [facility] 05-08-2025 07:11-0400 Body mass index (BMI) [Ratio] 33 kg/m2 [facility] 05-08-2025 07:11-0400 Body weight 98.[address] [facility] 04-29-2025 16:39-0400 Body temperature 98.6 [degF] [facility] 04-29-2025 16:39-0400 Diastolic blood pressure 62 mm[Hg] [facility] 04-29-2025 16:39-0400 Heart rate 80 /min [facility] 04-29-2025 16:39-0400 Respiratory rate 14 /min [facility] 04-29-2025 16:39-0400 SaO2% (BldA) [Mass fraction] 95 % [facility] 04-29-2025 16:39-0400 Systolic blood pressure 144 mm[Hg] [facility] 04-29-2025 15:43-0400 Body height 172.[address] [facility] 04-29-2025 15:43-0400 Body mass index (BMI) [Ratio] 32.9 kg/m2 [facility] 04-29-2025 15:43-0400 Body weight 98.[address] [facility] 04-29-2025 14:20-0400 Body temperature 97.8 [degF] [facility] 04-29-2025 14:20-0400 Diastolic blood pressure 67 mm[Hg] [facility] 04-29-2025 14:20-0400 Heart rate 76 /min [facility] 04-29-2025 14:20-0400 Respiratory rate 15 /min [facility] 04-29-2025 14:20-0400 SaO2% (BldA) [Mass fraction] 95 % [facility] 04-29-2025 14:20-0400 Systolic blood pressure 135 mm[Hg] [facility] 04-29-2025 13:03-0400 Body height 172.[address] [facility] 04-29-2025 13:03-0400 Body mass index (BMI) [Ratio] 32.9 kg/m2 [facility] 04-29-2025 13:03-0400 Body weight 98.[address] [facility] 03-02-2025 11:58-0400 Body temperature 98.4 [degF] [facility] 03-02-2025 11:58-0400 Diastolic blood pressure 74 mm[Hg] [facility] 03-02-2025 11:58-0400 Heart rate 59 /min [facility] 03-02-2025 11:58-0400 Respiratory rate 18 /min [facility] 03-02-2025 11:58-0400 SaO2% (BldA) [Mass fraction] 98 % [facility] 03-02-2025 11:58-0400 Systolic blood pressure 130 mm[Hg] [facility] 03-02-2025 09:46-0400 Body height 172.[address] [facility] 03-02-2025 09:46-0400 Body mass index (BMI) [Ratio] 33.5 kg/m2 [facility] 03-02-2025 09:46-0400 Body weight 100.[address] [facility] 01-25-2025 17:43-0400 Body temperature 98.2 [degF] [facility] 01-25-2025 17:43-0400 Diastolic blood pressure 77 mm[Hg] [facility] 01-25-2025 17:43-0400 Heart rate 74 /min [facility] 01-25-2025 17:43-0400 Respiratory rate 19 /min [facility] 01-25-2025 17:43-0400 SaO2% (BldA) [Mass fraction] 98 % [facility] 01-25-2025 17:43-0400 Systolic blood pressure 148 mm[Hg] [facility] 01-25-2025 15:00-0400 Diastolic blood pressure 69 mm[Hg] [facility] 01-25-2025 15:00-0400 Heart rate 76 /min [facility] 01-25-2025 15:00-0400 Respiratory rate 22 /min [facility] 01-25-2025 15:00-0400 SaO2% (BldA) [Mass fraction] 95 % [facility] 01-25-2025 15:00-0400 Systolic blood pressure 130 mm[Hg] [facility] 01-25-2025 11:19-0400 Body height 172.[address] [facility] 01-25-2025 11:19-0400 Body mass index (BMI) [Ratio] 33.7 kg/m2 [facility] 01-25-2025 11:19-0400 Body temperature 98.7 [degF] [facility] 01-25-2025 11:19-0400 Body weight 100.[address] [facility] 01-14-2025 14:43-0400 Body temperature 97.8 [degF] [facility] 01-14-2025 14:43-0400 Diastolic blood pressure 79 mm[Hg] [facility] 01-14-2025 14:43-0400 Heart rate 83 /min [facility] 01-14-2025 14:43-0400 Respiratory rate 14 /min [facility] 01-14-2025 14:43-0400 SaO2% (BldA) [Mass fraction] 98 % [facility] 01-14-2025 14:43-0400 Systolic blood pressure 149 mm[Hg] [facility] 01-14-2025 11:38-0400 Body height 172.[address] [facility] 01-14-2025 11:38-0400 Body mass index (BMI) [Ratio] 33.5 kg/m2 [facility] 01-14-2025 11:38-0400 Body weight 100.[address] [facility] 11-13-2024 23:22-0500 Body temperature 98 [degF] [facility] 11-13-2024 23:22-0500 Diastolic blood pressure 77 mm[Hg] [facility] 11-13-2024 23:22-0500 Heart rate 81 /min [facility] 11-13-2024 23:22-0500 Respiratory rate 16 /min [facility] 11-13-2024 23:22-0500 SaO2% (BldA) [Mass fraction] 99 % [facility] 11-13-2024 23:22-0500 Systolic blood pressure 144 mm[Hg] [facility] 11-13-2024 22:02-0500 Body mass index (BMI) [Ratio] 33.5 kg/m2 [facility] 11-13-2024 22:02-0500 Body weight 100.[address] [facility] 08-15-2022 15:37-0400 Body height 175.3 cm Heri Camarillo MD Work Phone: [facility] 08-15-2022 15:37-0400 Body mass index (BMI) [Ratio] 35.09 kg/m2 Heri Camarillo MD Work Phone: [facility] 08-15-2022 15:37-0400 Body temperature 97 [degF] Heri Camarillo MD Work Phone: [facility] 08-15-2022 15:37-0400 Body weight 107.78 kg Heri Camarillo MD Work Phone: [facility] 08-15-2022 15:37-0400 Diastolic blood pressure 55 mm[Hg] Heri Camarillo MD Work Phone: [facility] 08-15-2022 15:37-0400 Heart rate 65 /min Heri Camarillo MD Work Phone: [facility] 08-15-2022 15:37-0400 Respiratory rate 16 /min Heri Camarillo MD Work Phone: [facility] 08-15-2022 15:37-0400 SaO2% (BldA) [Mass fraction] 97 % Heri Camarillo MD Work Phone: [facility] 08-15-2022 15:37-0400 Systolic blood pressure 129 mm[Hg] Heri Camarillo MD Work Phone: [facility] 03-14-2022 13:32-0400 Diastolic blood pressure 81 mm[Hg] [facility] Work Phone: 03-14-2022 13:32-0400 Heart rate 64 /min [facility] Work Phone: 03-14-2022 13:32-0400 Respiratory rate 17 /min [facility] Work Phone: 03-14-2022 13:32-0400 SaO2% (BldA) [Mass fraction] 94 % [facility] Work Phone: 03-14-2022 13:32-0400 Systolic blood pressure 135 mm[Hg] [facility] Work Phone: 03-14-2022 12:25-0400 Body height 172.72 cm [facility] Work Phone: 03-14-2022 12:25-0400 Body mass index (BMI) [Ratio] 35.7 kg/m2 [facility] Work Phone: 03-14-2022 12:25-0400 Body temperature 98.1 [degF] [facility] Work Phone: 03-14-2022 12:25-0400 Body weight 106.59 kg [facility] Work Phone: Encounters Encounter Date Encounter Type Care Provider Facility Start: 06-01-2025 Encounter for preprocedural laboratory examination HANS LOZANO [facility] Start: 05-26-2025 End: 05-26-2025 [facility] Start: 05-23-2025 End: 05-23-2025 [facility] Start: 05-23-2025 End: 05-23-2025 Patient encounter procedure [facility] Scan [facility] Work Phone: Start: 05-23-2025 End: 05-23-2025 ambulatory [facility] Facility:[facility] Start: 05-13-2025 Encounter for genera l adult medical examination without abnormal findings Ed Physician Provider [facility] Start: 05-09-2025 End: 05-09-2025 [facility] Start: 05-08-2025 End: 05-08-2025 [facility] Start: 04-29-2025 End: 04-29-2025 [facility] Start: 04-22-2025 End: 04-22-2025 Patient encounter procedure Alec Tinajero MD Work Phone: [facility] Comment on above: Benign prostatic hyp erplasia with urinary retention (Primary Dx); Renal cysts, acquired, bilateral Start: 04-22-2025 End: 04-22-2025 ambulatory ALEC TINAJERO Facility:[facility] Start: 04-05-2025 End: 04-05-2025 ambulatory [facility] Work Phone: Start: 04-05-2025 End: 04-05-2025 Patient encounter procedure [facility] Start: 04-05-2025 End: 04-05-2025 ambulatory [facility] Facility:[facility] Start: 03-29-2025 End: 03-29-2025 ambulatory [facility] Work Phone: Start: 03-29-2025 End: 03-29-2025 Patient encounter procedure [facility] Start: 03-24-2025 End: 03-24-2025 ambulatory [facility] Work Phone: Start: 03-24-2025 End: 03-24-2025 Patient encounter procedure Chikis Hernandez [facility]-C -Radiology [facility] Work Phone: Start: 03-24-2025 End: 03-24-2025 ambulatory Chikis Hernandez Facility:[facility] Start: 03-15-2025 End: 03-15-2025 ambulatory ALEC TINAJERO Facility:[facility] Start: 03-02-2025 End: 03-02-2025 Emergency department patient visit [facility] -Emergency Department Work Phone: Start: 01-25-2025 End: 01-25-2025 Emergency department patient visit [facility] -Emergency Department Work Phone: Start: 01-21-2025 End: 01-21-2025 ambulatory [facility] Work Phone: Start: 01-21-2025 End: 01-21-2025 Patient encounter procedure PALLAVI VALDES [facility] [employer]-C -Nuclear Medicine, [facility] Work Phone: Start: 01-21-2025 End: 01-21-2025 ambulatory PALLAVI KEISHA Facility:[facility] Start: 01-14-2025 End: 01-14-2025 [facility] Start: 11-13-2024 End: 11-13-2024 Emergency department patient visit Rowdy Shearer DO -Emergency Department Work Phone: Start: 09-03-2024 End: 09-03-2024 Emergency department patient visit Franki Medina Facility:[facility] Start: 08-31-2024 End: 08-31-2024 ambulatory [facility] Facility:[facility] Start: 08-24-2024 End: 08-24-2024 ambulatory [facility] Facility:[facility] Start: 07-30-2024 End: 07-30-2024 ambulatory [facility] Facility:[facility] Start: 07-09-2024 ambulatory Chucky Fletcher lity:[facility] Start: 07-09-2024 End: 07-13-2024 Evaluation and management of inpatient Chucky Mckoy Facility:[facility] Start: 01-20-2024 End: 01-20-2024 ambulatory [facility] Work Phone: Start: 01-20-2024 End: 01-20-2024 Patient encounter procedure [facility] Start: 12-16-2023 End: 12-16-2023 ambulatory [facility] Work Phone: Start: 12-16-2023 End: 12-16-2023 Patient encounter procedure [facility], [facility] Work Phone: Start: 06-16-2023 End: 06-16-2023 ambulatory [facility] Work Phone: Start: 06-16-2023 End: 06-16-2023 [facility] Work Phone: Start: 12-31-2022 End: 12-31-2022 ambulatory [facility] Work Phone: Start: 12-31-2022 End: 12-31-2022 Patient encounter procedure [facility], [facility] Start: 11-07-2022 Telephone encounter Heri plunkett MD Work Phone: [facility] Comment on above: Gas (Pt stating that he has been having gas pain with flatulence. He has tried beano, gas x and nothing has worked. He wants to know if something can be called into [facility] on [address] ph [phone]. Please call to let him know something not too expensive, by the way, will be called in for him or discuss further. /) Start: 10-25-2022 Telephone encounter Heri plunkett MD Work Phone: [facility] Comment on above: Medication Question Start: 10-18-2022 End: 10-18-2022 ambulatory HERI CAMARILLO [facility] Start: 10-10-2022 End: 10-10-2022 ambulatory PACO GELLER [facility] Start: 09-16-2022 End: 09-16-2022 ambulatory KARI RAYMUNDO [facility] Start: 08-27-2022 End: 08-27-2022 ambulatory KARI RAYMUNDO [facility] Start: 08-22-2022 End: 08-25-2022 Evaluation and management of inpatient Heri Camarillo [facility] Start: 08-15-2022 ambulatory UNKNOWN PROVIDER [facility] Start: 08-15-2022 Encounter for other preprocedural examination Heri Rabia [facility] Start: 08-15-2022 End: 08-15-2022 Patient encounter status Heri Camarillo MD Work Phone: [facility] Start: 08-15-2022 End: 08-15-2022 Subsequent hospital visit by physician Heri Camarillo MD Work Phone: [facility] Comment on above: Pre-op testing (Prim martha Dx) Start: 03-14-2022 End: 03-14-2022 Emergency department patient visit [facility] Start: 02-06-2022 End: 02-06-2022 Patient encounter procedure [facility] Oncology Procedures Date Procedure Procedure Detail Performing Clinician Start: 05-26-2025 Urnls dip stick/tabl et reagent auto microscopy [facility] Start: 05-26-2025 [facility] Start: 05-23-2025 End: 05-23-2025 Plain chest X-ray [facility] Start: 05-23-2025 Biopsy/Inj or Needle Placement [facility] Start: 05-09-2025 Plain x-ray of hand [facility] Start: 05-09-2025 Plain x-ray of wrist [facility] Start: 05-08-2025 [facility] Start: 05-08-2025 Urnls dip stick/tabl et reagent auto microscopy [facility] Start: 04-05-2025 PET study for locali zation of tumor [facility] Start: 03-24-2025 X-ray of chest, PA a nd lateral views [facility] Start: 01-25-2025 CT of abdomen and pe lvis without contrast [facility] Start: [facility]-25-[facility] Start: 01-25-2025 Urine culture [facility] Start: 01-25-2025 Estimated creatinine clearance [facility] Start: 01-25-2025 Urnls dip stick/tabl et reagent auto microscopy [facility] Start: 01-21-2025 Renal isotope studies [facility] Start: 12-16-2023 CT of chest without contrast [...] Tdap) [facility] Start: 09-30-2027 Urine microalbumin profile DTa P,Tdap,Td Vaccine (2 - Td or Tdap) [facility] Start: 05-26-2025 End: 05-26-2025 [facility] Start: 05-26-2025 Bacteria identified in Urine by Culture Urine Culture [facility] Start: 05-23-2025 CORE NDL BX LNG/MED PERQ CORE NDL BX LNG/MED PERQ [facility] Start: 05-23-2025 Following clinical p athway protocol [facility] Start: 05-23-2025 Catheterization of vein [facility] Start: 05-23-2025 Oxygen therapy [facility] Start: 05-23-2025 Patient discharge [facility] Start: 05-23-2025 Vital signs measurements [facility] Start: 05-19-2025 End: 05-19-2025 Patient encounter procedure 05/19/2025 2:00 PM EDT Office Visit [facility] [address] [place] [address] Wolfgang Florez Jr., MD [address] [place], [place] [address] referred by Dr. Tinajero for BPH [facility] Comment on above: referred by Dr. Javy tate for BPH Start: 05-09-2025 Plain x-ray of hand Hand Min 3 Views [facility] Start: 05-09-2025 Plain x-ray of wrist Wrist min 3 Vie ws [facility] Start: 05-09-2025 XR Hand GE 3 Views [facility] Start: 05-09-2025 XR Wrist GE [address] [facility] Start: 05-08-2025 Bacteria identified in Urine by Culture Urine Culture [facility] Start: 05-08-2025 [facility] Start: 05-08-2025 [facility] Start: 04-29-2025 [facility] Start: 04-29-2025 Removal of urinary catheter [facility] Start: 04-29-2025 [facility] Start: 03-02-2025 [facility] Start: 01-25-2025 [facility] Start: 01-25-2025 Bacteria identified in Blood by Culture Blood Culture [facility] Start: 01-25-2025 Bacteria identified in Urine by Culture Urine Culture [facility] Start: 01-25-2025 [facility] Start: 01-25-2025 [facility] Start: 01-25-2025 Removal of urinary catheter [facility] Start: 01-14-2025 [facility] Start: 11-13-2024 [facility] Start: 10-27-2024 Advance Directive Discussion Advance Directive Discussion [facility] Start: 06-27-2024 Covid-19 Vaccine ( season) Covid-19 Vaccine ( season) [facility] Start: 01-20-2024 Positron emission tomography with computed tomography [facility] Start: 12-11-2022 End: 12-11-2022 Patient encounter procedure 12/11/2022 Office Visit Urology Yadi Pemberton, NURSE PARALEGAL - TOOL AND DIE [employer] LEVEL FIVE [address] [address] [facility] Start: 08-22-2022 End: 08-22-2022 Patient encounter procedure 08/22/2022 [facility] General Surgery Heri Camarillo MD [address] [place] [address] Franc Zambrano MD [address] [place] [address] [facility] General Surgery Start: 06-27-2022 Influenza vaccination Influenza Vacc ine (#1) [facility] Start: 05-27-2022 Influenza vaccination Flu vaccine (# 1) [facility] Start: 05-03-2022 COVID-19 Vaccine (5 - Booster for Pfizer series) COVID-19 Vaccine (5 - Booster for Pfizer series) [facility] Start: 09-11-2021 COVID-19 Vaccine (2 - Pfizer series) COVID-19 Vaccine (2 - Pfizer series) [facility] Start: 2019 RSV Vaccine (1 - 1-d ose 75+ series) RSV Vaccine (1 - 1-dose 75+ series) [facility] Start: 03-09-2016 Pneumococcal 65+ yea rs Vaccine (2 - PPSV23 if available, else PCV20) Pneumococcal 65+ years Vaccine (2 - PPSV23 if available, else PCV20) [facility] Start: 05-04-2015 Pneumococcal Vaccine : 50+ (2 of 2 - PPSV23) Pneumococcal Vaccine: 50+ (2 of 2 - PPSV23) [facility] Start: 07-27-2009 Medicare Annual Well ness Visit Medicare Annual Wellness Visit [facility] Start: 1994 Screening for malign ant neoplasm of lung Low dose CT lung screening [facility] Start: 1994 Zoster Vaccines (1 of 2) Zoste r Vaccines (1 of 2) [facility] Start: 1989 Diabetes Screening Diabetes Screenin g [facility] Start: 1963 DTaP/Tdap/Td Vaccine s (1 - Tdap) DTaP/Tdap/Td Vaccines (1 - Tdap) [facility] Start: 1963 Urine screening for protein Diabetes: Urine Protein Screening [facility] Start: 1962 Anxiety Screening Anxiety Screening [facility] Start: 1962 Depression Screening Depression Scre ening [facility] Start: 1962 Hepatitis C screening S [facility] Start: 1956 Depression Screen Depression Screen [facility] Start: 1954 Diabetic foot examination Diabetes: Foot Exam [facility] Start: 1954 Glaucoma screening Diabetes: R etinopathy Screening [facility] Start: 1954 Preventive dental service Diabetes: Dental Exam [facility] Start: 1950 Pneumococcal Vaccine : 65+ Years (1 - PCV) Pneumococcal Vaccine: 65+ Years (1 - PCV) [facility] Start: 1944 Hemoglobin A1c measurement Margaret betes: Hemoglobin A1C [facility] Start: 1944 Hepatitis B Vaccines (1 of 3 - 3-dose series) Hepatitis B Vaccines (1 of 3 - 3-dose series) [facility] Start: 1944 Lipid panel Lipid Panel [facility] End: 08-15-2022 Culture, Urine [facility] Work Phone: Comment on above: One Time for 1 Occur rences starting 08/15/2022 until 08/15/2022 Patient Education [facility] Work Phone: Patient referral [facility] Work Phone: Urine culture [facility] Urine culture [facility] Urine culture [facility] Immunizations Immunization Date Immunization Notes Care Provider Elisabeth morel 08-21-2021 Pfizer SARS-CoV-2 Vaccination Heri Camarillo MD Work Phone: [facility] Payers Date Payer Category Payer [place] [id number] 2024 Self-pay [id number] 2024 Unknown [id number] 11 2022 Unknown 2021 Unknown [id number] 2009 Medicare 1945 Unknown [id number] [id number]. 2.668 1945 Unknown [id number] 2.840.1.508150.3.579. 2.668 Medicare [id number] Unknown [id number] 2.16.840.1.739640.3.579. 2.462 Unknown [id number] 2.16.840.1.123233.3.579. 2.462 Unknown [id number] 2.16.840.1.682803.3.579. 2.462 Unknown [id number] 2.16.840.1.337907.3.579. 2.462 Unknown [id number] 2.16.840.1.416426.3.579. 2.462 Unknown [id number] 2.16.840.1.068827.3.579. 2.462 Unknown [id number] 2.16.840.1.221802.3.579. 2.462 Unknown [id number] 2.16.840.1.227147.3.579. 2.462 Unknown [id number] 2.16.840.1.923303.3.579. 2.462 Unknown [id number] 2.16.840.1.176499.3.579. 2.462 Unknown [id number] 2.16.840.1.564946.3.579. 2.462 Unknown [id number] 2.16.840.1.326482.3.579. 2.462 Unknown [id number] 2.16.840.1.085975.3.579. 2.462 Unknown [id number] 2.16.840.1.134957.3.579. 2.462 Unknown [id number] 2.16.840.1.746312.3.579. 2.462 Unknown [id number] 2.16.840.1.636013.3.579. 2.462 Unknown [id number] 2.16.840.1.089708.3.579. 2.462 Unknown [id number] 2.16.840.1.348104.3.579. 2.462 Unknown [id number] 2.16.840.1.571744.3.579. 2.462 Unknown [id number] 2.16.840.1.016274.3.579. 2.462 Unknown [id number] 2.16.840.1.924374.3.579. 2.462 Unknown [id number] 2.16.840.1.048422.3.579. 2.462 Social History Date Type Detail Facility Start: 03-14-2022 End: 03-14-2022 Tobacco smoking status MNIS Unknown if ever smoked [facility] Start: 1945 Sex Assigned At Male [facility] Start: 08-15-2022 End: 05-26-2025 Tobacco smoking status MNIS Smokes tobacco daily [facility] History of tobacco use Cigarette Smoker [facility] Work Phone: Start: 08-15-2022 End: 03-15-2025 Cigarettes smoked current (pack per day) - Reported 1.5 [facility] Work Phone: Start: 08-15-2022 End: 03-15-2025 Tobacco use and exposure Smokeless tobacco non-user [facility] Work Phone: Start: 08-15-2022 End: 10-10-2022 Alcohol intake Ex-drinker (finding) [facility] Work Phone: Start: 1945 Sex Assigned At Not on file [facility] [employer] Work Phone: Start: 08-05-2022 End: 08-15-2022 Exposure to SARS-CoV-2 (event) Not sure [facility] Work Phone: Start: 10-08-2022 End: 10-18-2022 Exposure to SARS-CoV-2 (event) Unable to assess [facility] Start: 01-14-2025 End: 05-08-2025 Tobacco smoking status NHIS Current Heavy tobacco smoker [facility] Start: 01-14-2025 End: 01-25-2025 Sex Male (finding) [facility] Start: 03-15-2025 Alcoholic beverage intake Lifetime non-drinker (finding) [facility] Start: 03-15-2025 Tobacco use panel [facility] National Score (1-10 0), lower number is lower risk 72 [facility] Functional Status Date Assessment Result Facility 05-23-2025 Functional status [facility]ulates [facility] Work Phone: Mental Status Date Assessment Result Facility 05-23-2025 Cognitive function Voice/Name [facility] Work Phone: Clinical Notes 08-15-2022 to 05-26-2025 Note Date & Type Note Facility 05-26-2025 Discharge summary [facility] 05-26-2025 Discharge summary Note Date/Time May 26, 2025 8:19pm [facility] Medical Records Department [address] [place] [address] Emergency Department Summary 05/26/25 MR#: [id number] Acct: [id number] Name: LORI LYNCH Rep #:[id number] : 1945 79 From: Oscar Valencia MD PCP: [facility] Status:REG ER Location: ED HPI History of Present Illness Chief Complaint: Complaint Narrative Narrative: 79-year-old male past medical history of BPH with history of obstruction presents for Diego catheter change. He relates history that he has had multiplesurgeries on his prostate the last being in May of last year, almost 1 year ago. He usually has his Diego catheter exchanged every month. Recently at the [facility], they have been inserting coud? catheters. He ends up leaking around them, and has to come to the emergency department to get it exchanged for a regular Diego catheter that is 20 British in size. He states that he had a [place] [facility] today [facility] and it started leaking around the catheter again. He denies any fevers or chills, he is having bladder spasms. No hematuria. He states that this is the third time that he has had to come to theemergency department to get his straight Diego catheter. [facility] Medical History BPH with obstruction/lower urinary [...] cholesterol 01/24/25 History glipizide 10 mg tablet 5 mg PO DAILY diabetes 07/1005/22/25 History insulin glargine 100 unit/mL (3 10 unit subcut QHS margaret betes 07/10/24 01/24/25 History mL) subcutaneous pen pregabalin 75 mg capsule (Lyrica) 75 mg PO BID pain 01/25/25 History sitagliptin 25 mg tablet 25 mg PO DAILY diabetes 06/2701/25/25 History finasteride 5 mg tablet 5 mg PO DAILY #30 tabs 07/1301/25/25 Rx ferrous gluconate 324 mg (38 mg 324 mg PO QHS 01/25/25 01/24/25 History iron) tablet levofloxacin 750 mg tablet 750 mg PO DAILY #5 tabs Unknown Rx levofloxacin 750 mg tablet 750 mg PO DAILY #7 tabs Unknown Rx Allergy/AdvReac Type Severity Reaction Status Date / Time amoxicillin (From Augmentin) Allergy Hives Verified 05/26/25 18:23 clavulanic acid (From Allergy Hives Verified 05/26/25 18:23 Augmentin) lisinopril Allergy Other Verified 05/26/25 18:23 Family History Other Diabetes Surgical History H/O shoulder replacement Social History Smoking Status: Current every day smoker tobacco type: cigarettes ROS ROS ED ROS Narrative Positive bladder spasms. Leaking around Diego catheter. No fevers or chills. No exacerbating or alleviating factors. EXAM Physical Exam Narrative Exam Narrative: Afebrile. Vital signs noted. Nontoxic-appearing. Cardiovascular examination regular rate and rhythm. Lungs clear to auscultation bilaterally. Abdomen softand nontender with positive bowel sounds. Visual inspection does show Diego catheter draining yellow urine, no gross hematuria. Const Vital Signs: 05/26/25 18:22 Temperature 98 F Temperature Source Oral Pulse Rate 80 Respiratory Rate 18 Blood Pressure 181/73 H Blood Pressure Mean 109 Pulse Ox 100 Oxygen Delivery Method Room Air MDM MDM MDM Narrative Medical decision making narrative: I do not feel the differential diagnosis is indicated as he is here for Diego catheter exchange. 20 British Diego catheter will be placed by RN. Additionally, he was concerned and wanted a urinalysis performed which I think is reasonable since he has indwelling Diego catheter, but I have a low suspicionfor infection clinically. He may have more of a colonization. Diego catheter exchanged by RN. I reviewed his urinalysis and he does have greater than 100 WBCs with 25-50 RBCs and 3+ bacteria. He has negative for nitrites. I did review his prior ED visit and he ended up having a UTI for which he was treated with Cipro but the bacterial species was sensitive to Levaquin. He was called in a prescription for Levaquin instead so this time while urine culture was sent, he was given his first dose of Levaquin here and prescription written for the next 7 days. I feel he can be discharged to follow-up with his urologist [facility] [place]. Return instructions were reviewed. Disposition is discharged home in stable condition. History & Record Review Additional record(s) reviewed:: Prior ED visit (Bacterial species is sensitive to Levaquin) Lab Data Attestation: I reviewed the patient's lab results. Labs: Laboratory Results - last 24 hr 05/26/25 19:19 Urine Color Straw Urine Clarity Turbid Urine pH 6.5 Ur Specific Pima 1.015 Urine Protein 100 H Urine Glucose (UA) Normal Urine Ketones Negative Urine Occult Blood 250 H Urine Nitrite Negative Urine Bilirubin Negative Urine Urobilinogen Normal Ur Leukocyte Esterase 500 H Urine RBC 25-50 SEEN Urine WBC >100 SEEN Ur Squamous Epith Cells 0 SEEN Urine Bacteria 3+ Urine Mucus 0 SEEN Discharge Plan Triage Chief Complaint: Complaint ED Provider: Oscar Valencia Dx/Rx/DC Orders Clinical Impression: Diego catheter problem, Indwelling Diego catheter present, Complicated urinary tract infection Instructions: ED Diego Catheter, Care, ED Urinary Tract Infections in Men Prescriptions: New levofloxacin 750 mg tablet 750 mg PO DAILY Qty: 7 0RF No Action insulin glargine 100 unit/mL (3 mL) insulin pen 10 unit subcut QHS aspirin 81 mg tablet,chewable 81 mg PO DAILY Patient Comments: PT TAKES IN EVENING atorvastatin 40 mg tablet 40 mg PO QHS pregabalin [Lyrica] 75 mg capsule 75 mg PO BID sitagliptin 25 mg tablet 25 mg PO DAILY amlodipine 10 mg tablet 10 mg PO DAILY glipizide 10 mg tablet 5 mg PO DAILY finasteride 5 mg Tablet 5 mg PO DAILY Qty: 30 1RF ferrous gluconate 324 mg (38 mg iron) tablet 324 mg PO QHS levofloxacin 750 mg tablet 750 mg PO DAILY Qty: 5 0RF [facility] [Primary [facility] Provider] - Activity Restrictions/Additional Instructions: Follow-up with your urologist at the [facility]. Antibiotics as directed. Return with fever, new or worsening symptoms. Print Language: Guatemalan Disposition Disposition: Home, Self Care What to do if you have Problems For any increased pain, shortness of breath, bleeding, nausea or vomiting, chestpain, or any unexpected problems, contact your Primary Care Provider. Call [facility] ([phone]) or report to the closest Emergency Room. Call 911 if necessary. 05/26/25 2019 <Electronically signed by Oscar Valencia MD> Cosigner Signature (if applicable): CC: [facility] ~ Signed [facility] Work Phone: 1(545) 624-768707-28-2025 Radiology Diagnostic study note [facility] Imaging Services [address] [place] [address] Chest Insp/Exp 2 View MR#: [id number] Acct: [id number] Name: LORI LYNCH Rep #: [id number] : 1945 M 79 From: Berlin Green MD PCP: [facility] Status: REG CLI Study:Chest Insp/Exp 2 View Date of Exam: 05/23/25 Exam# [id number] Ordering Dr: Jemal Green MD EXAM: AP portable upright inspiratory and expiratory chest CLINICAL HISTORY: 3 hour post left lung biopsy COMPARISON: Chest x-ray of earlier on 05/23/2025 TECHNIQUE: Two-view AP portable upright inspiratory and expiratory chest RAD/Chest Insp/Exp 2 View IMPRESSION: No pneumothorax is seen. Lungs appear unchanged. No pleural effusion is evident. The cardiomediastinal silhouette is stable, without evidence of cardiomegaly. No interval osseous change is noted. Reading Location: [place] [address] CC: Dr. Jemal Green MD; [facility] ~ Insulator Apprentice: Signed [facility]07-28-2025 Rad[address] Diagnostic study note [facility] Imaging Services [address] [place] [address] Chest Insp/Exp 2 View MR#: [id number] Acct: [id number] Name: LORI LYNCH Rep #: [id number] : 1945 M 79 From: John Padilla MD PCP: [facility] Status: REG CLI Study:Chest Insp/Exp 2 View Date of Exam: 05/23/25 Exam# [id number] Ordering Dr: Jemal Green MD EXAM: AP inspiration expiration views following left lung biopsy. CLINICAL HISTORY: Status post left lung biopsy. COMPARISON: Prior study dated March 24, 2025. TECHNIQUE: AP inspiration expiration views. FINDINGS: No evidence of pneumothorax following the biopsy. RAD/Chest Insp/Exp 2 View IMPRESSION: No evidence of pneumothorax following the biopsy. Reading Location: [id number] CC: Dr. Jemal Green MD; [facility] ~ Insulator Apprentice: Signed [facility]07-28-[address] Rad[address] Diagnostic study note [facility] Imaging Services [address] [place], [place] [address] Biopsy/Inj or Needle Placement MR#: [id number] Acct: [id number] Name: LORI LYNCH Rep #: [id number] : 1945 79 From: Berlin Green MD PCP: [facility] Status: REG CLI Study:Biopsy/Inj or Needle Placement Date of Exam: 05/23/25 Exam# [id number] Ordering Dr: MIREYA LAWSON EXAM: CT-guided core biopsy of a left upper lobe hypermetabolic nodule CLINICAL HISTORY: Hypermetabolic left upper lobe nodule on PET-CT of 04/05/2025 COMPARISON: PET-CT of 04/05/2020. TECHNIQUE: Conscious sedation was employed for this procedure, with intravenous administration of a total of 2mg Versed and [address]-guided core biopsy of a left upper lobe hypermetabolic pulmonary nodule was performed, with the patient in prone positioning. 2% lidocaine local anesthesia was followed by placement of a 20 gauge 15 cm CorVocet core biopsy system. 4 core samples were successfully obtained. A very small pneumothorax was seen on post images. CT/Biopsy/Inj or Needle Placement IMPRESSION: Successful left upper lobe hypermetabolic nodule core biopsy. Pathology resultspending. Reading Location: [facility] CC: MIREYA SOLIS; [facility] ~ Insulator Apprentice: Signed [facility]07-04-2025 Discharge summary [facility] Medical Records Department [address] [place] [address] Emergency Department Summary 04/29/25 MR#: [id number] Acct: [id number] Name: LORI LYNCH Rep #:[id number] : 1945 79 From: Chikis ROBERTSON [facility]CP: [facility] Status:REG ER Location: ED HPI History of Present Illness Chief Complaint: Complaint Narrative Narrative: 79-year-old male has BPH and chronic indwelling Diego June 2024. He saw his urologist [place] the [facility] yesterday and had a routine catheter change. Since thenurine has been leaking from around the tubeand his penis is only partially draining in the bag. He has no pain. No hematuria or clots. [facility] Medical History BPH with obstruction/lower urinary [...] rebound, nondistended. : Normal external genitalia. [address] catheter [address] place. There is urine [...] making narrative: 79-year-old male with a 20 British Diego catheter is leaking since it was [...] states that when he got home yesterday, henoted some leaking around the catheter. Patient denies [...] Days Qty: 7 0RF Primary Care Provider: [facility] Referrals[facility] [Primary Care Provider] - Activity Restrictions/Additional Instructions: Your Diego catheter was adjusted and now seems to be draining normally. If you have any issues you can return to the ER or see your urologist. Print Language: Guatemalan What to do if you have Problems For any increased pain, shortness of breath, bleeding, nausea or vomiting, chestpain, or any unexpected problems, contact your Primary Care Provider. Call [facility] ([phone]) or report tothe closest Emergency Room. Call 911 if necessary. 04/29/25 1426 Cosigner Signature (if applicable): 04/29/25 1614 CC: [facility] ~ Signed [facility]07-04-2025 Discharge summary Author Chikis Puckett [facility] Note Date/Time April 29, 2025 4:14p m [facility] Medical Records Department [address] [place] [address] Emergency Department Summary 04/29/25 MR#: [id number] Acct: [id number] Name: LORI LYNCH Rep #:[id number] : 1945 79 From: Chikis ROBERTSON [facility]CP: [facility] Status:REG ER Location: ED HPI <AILYN Daniels - Last Filed: 04/29/25 14:26> History of Present Illness Chief Complaint: Complaint Narrative Narrative: 79-year-old male has BPH and chronic indwelling Diego June 2024. He saw his urologist [place] the [facility] yesterday and had a routine catheter change. Since thenurine has been leaking from around the tube and his penis is only partially draining in the bag. He has no pain. No hematuria or clots. PFSH <AILYN Daniels - Last Filed: 04/29/25 14:26> PF[facility] Medical History BPH with obstruction/lower urinary tract [...] rebound, nondistended. : Normal external genitalia. 20 [place] [address] catheter in place. There is urine [...] 104 Pulse Ox 99 95 98 MDM <AILYN Daniels - Last Filed: 04/29/25 14:26> [facility] Narrative Medical decision making narrative: 79-year-old male with a 20 British Diego catheter is leaking since it was [...] his urologist as needed. <Dr. William Seals, DO - Last Filed: 04/29/25 15:56> [facility] Treatment and Re-Evaluation Narrative: I have [...] Days Qty: 7 0RF [facility]] - Activity Restrictions/Additional Instructions: Your Diego catheter was adjusted and now seems to be draining normally. If you have any issues you can return to the ER or see your urologist. Print Language: Guatemalan What to do if you have Problems For any increased pain, shortness of breath, bleeding, nausea or vomiting, chestpain, or any unexpected problems, contact your Primary Care Provider. Call [employer] Registry ([phone]) or report to the closest Emergency Room. Call 911 if necessary. 04/29/25 1426 <Electronically signed by Chikis ROBERTSON> Cosigner Signature (if applicable): 04/29/25 1614 <Electronically signed by William Seals DO> CC: [facility] ~ Signed [facility] Work Phone: 1(225) 428-962306-27-2025 Instructions* Patient Instructions* Alec Tinajero MD - [...] prostate cancer in its early stages, the [place] [employer] and the [place] [employer] recommend a screening every year for men ages 50 to 70. They further recommend that men who are at high risk -- such as -Faroese men and men with a family history [...] and improves urine flow. [facility] NoteHNO ID: [id number] Author: ALEC TINAJERO MD Service: ? Author Type: Physician Type: Progress Notes Filed: 04/22/2025 08:38 Note Text: ESTABLISHED PATIENT OFFICE VISIT Wildlife Policy Professional present: Nina Sexton MA PATIENT INFO: Lori [...] 2024 patient went into retention and [place] [facility] has been changing the catheter monthly since then He saw urology at the [facility] and they talked him about getting [place]ic tube at the [place] but he wants to come to [place] as it is closer to [place] where he lives Has had catheter change in [place] Had a aqua ablation in the past and saw Dr. Camarillo as noted below but a lot of urine frequency then that persisted Catheter has been draining well now No fevers or chills Follows his elevated creatinine with [facility] report showed some mild bilateral hydroureter and severe BPH with bilateral renal cysts and some might be 2F and suggested follow-up Instructed him to get disc with films from [place] where he had them and see me back for cystoscopy and ultrasound of prostate and go from there October 18, 2022-[facility] by Dr[facility] Cam[facility] 77 y.o. male who presents for telehealth [...] and dysuria. Risk of anesthesia complications, stroke, [place], etc.The patient expressed an understanding with regard to possible complications and outcom (more content not included)...[facility]06-[facility] History of Present illness Narrative* Alec Tinajero MD - 04/22/2025 8:07 AM EDT ESTABLISHED PATIENT OFFICE VISIT Wildlife Policy Professional present: Nina Sexton MA PATIENT INFO: Lori [...] 2024 patient went into retention and [place] [facility] has been changing the catheter monthly since then He saw urology at the [facility] and they talked him about getting [place]ic tube at the [place] but he wants to come to [place] as it is closer to [place] where he lives Has had catheter change in [place] Had a aqua ablation in the past and saw Dr. Camarillo as noted below but a lot of urine frequency then that persisted Catheter has been draining well now No fevers or chills Follows his elevated creatinine with [facility] CT report showed some mild bilateral hydroureter and severe BPH with bilateral renal cysts and somemight be 2F and suggested follow-up Instructed him to get disc with films from [place] where he had them and see me back for cystoscopy and ultrasound of prostate and go from there October 18, 2022-seen by Dr. Camarillo/[facility]- 77 y.o. male who presents for telehealth [...] and dysuria. Risk of anesthesia complications, stroke, [place], etc.The patient expressed an understandingwith regard to possible complications and outcome. Discussed options alpha clifford therapy vs proscar vs surical intervention and risks of these. Alpha bolckers can cause dizzines and falls. Discussed risk bladder decompinsation explosive ordnance technician could be anissue if no surgical intervention. [...] discussed with the Patient or Patient's Authorized Barrel Liner. Asapplicable, any other physician, advance practice provider, medical student, or other health professional student that will be observing or involved in the sensitive examination for educational or training purposes was discussed with the Patient or Authorized Barrel Liner. The Patient or Authorized Barrel Liner has agreed to proceed with the sensitive examination. (Sensitive examination includes inspection and/or palpation of the breasts, pelvis, prostate and anorectal regions) Please note: This note has been produced using speech recognition software and may contain errors related to that system including grammar, punctuation, spelling, gender and words and phrases that may be inappropriate. documented in this encounterMet[facility]05-29-[address] Radiology [address] study note [facility] Imaging Services [address] [place], [place] [address] Chest PA and Lateral MR#: [id number] Acct: [id number] Name: LORI LYNCH Rep #: [id number] : 1945 M 79 From: Irene Neal MD PCP: [facility] Status: REG CLI Study:Chest PA and Lateral Date of Exam: 03/24/25 Exam# [id number] Ordering Dr: Bibi Hernandez sa BLOCK GREASER-C PROCEDURE: CHEST PA AND LATERAL 03/24/2025 REASON [...] not well-visualized by radiographic imaging. Reading Location: [facility] CC: MASON Hernandez; [facility] ~ Insulator Apprentice: Signed [facility]05-20-2025 NoteHNO ID: [id number] Author: ALEC TINAJERO MD Service: ? 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 As applicable, any other physician, advance practice provider, medical student, or other health professional student that will be observing or involved in the sensitive examination for educational or training purposes was discussed with the Patient or Authorized Barrel Liner. The Patient or Authorized Barrel Liner has agreed to proceed with the sensitive [...] and outcome. FOLLOW UP: (more content not included)...[facility]04-[facility]2025 Discharge summary [facility] Medical Records Department [address] [place] [address] Emergency Department Summary 01/25/25 MR#: [id number] Acct: [id number] Name: SYEDLORI He Rep #:[id number] : 1945 79 From: Greg Ruiz MD PCP: [facility] Status:REG ER Location: ED HPI History of [...] is concerned he may have a UTI. [facility] Medical History BPH with obstruction/lower urinary [...] hisFoley does show pyuria and signs of infection,this [...] we were able to obtain a 20 British coud?, nursing advanced it all the way, [...] 73.0 H Lymph % (Auto) 9.4 L [place] % (Auto) 15.4 H Eos % (Auto) 1.0 Baso % (Auto) 0.4 Absolute Neuts (auto) 13.0 H Absolute Lymphs (auto) 1.67 Nucleated RBC % 0 Differential Comment SCANNED Diff Path Review February foll Sodium 137 Potassium 4.4 Chloride 106 Carbon Dioxide 17.5 L Anion Gap 14 BUN 50 H Creatinine 3.33 H Estim Creat Clear Calc 20.35 L Est GFR (MDRD) Non-Af 18 L BUN/Creatinine Ratio 14.9 Glucose 247 H Lactic Acid 1.4 Calcium 8.5 Urine Color Straw Urine Clarity Turbid Urine pH 6.0 Ur Specific Pima 1.010 Urine Protein 100 H Urine Glucose [...] seen within the prostatic urethra. Reading Location: [id number] Management Discussion w/another healthcare provider: [employer] (Dr. [facility]) Discharge Plan Triage Chief [...] 324 mg PO QHS [facility] [Primary Care Provider] - Keep Cezar appointment [...] to the ER for reevaluation. Print Language: Guatemalan Disposition Disposition: Home, Self Care What to do if you have Problems For any increased pain, shortness of breath, bleeding, nausea or vomiting, chestpain, or any unexpected problems, contact your Primary Care Provider. Call [facility] ([phone]) or report tothe closest Emergency Room. Call 911 if necessary. 01/25/25 1728 Cosigner Signature (if applicable): CC: [facility] ~ Signed [facility]04-01-[address] Radiology Diagnostic study note [facility] Imaging Services [address] [place] [address] Abdomen/Pelvis without Cont MR#: [id number] Acct: [id number] Name: LORI LYNCH Rep #: [id number] : 1945 M 79 From: John Padilla MD PCP: [facility] Status: REG ER Study:Abdomen/Pelvis without Cont Date of Exa m: 01/25/25 Exam# [id number] Ordering Dr: Shirley Ruiz MD PROCEDURE: ABDOMEN/PELVIS [...] seen within the prostatic urethra. Reading Location: [id number] CC: Dr. Greg Ruiz MD; [facility] ~ Insulator Apprentice: Signed [facility]04-01-2025 Discharge summary Author Greg Ruiz [facility] Note Date/Time January 25, 2025 5:28 pm [facility] Medical Records Department [address] [place] [address] Emergency Department Summary 01/25/25 MR#: [id number] Acct: [id number] Name: LORI LYNCH Rep #:[id number] : 1945 79 From: Greg Ruiz MD PCP: [facility] Status:REG ER Location: ED HPI History of [...] is concerned he may have a UTI. [facility] Medical History BPH with obstruction/lower urinary [...] we were able to obtain a 20 British coud?, nursing advanced it all the way, [...] 73.0 H Lymph % (Auto) 9.4 L [place] % (Auto) 15.4 H Eos % (Auto) 1.0 Baso % (Auto) 0.4 Absolute Neuts (auto) 13.0 H Absolute Lymphs (auto) 1.67 Nucleated RBC % 0 Differential Comment SCANNED Diff Path Review February Sodium 137 Potassium 4.4 Chloride 106 Carbon Dioxide 17.5 L Anion Gap 14 BUN 50 H Creatinine 3.33 H Estim Creat Clear Calc 20.35 L Est GFR (MDRD) Non-Af 18 L BUN/Creatinine Ratio 14.9 Glucose 247 H Lactic Acid 1.4 Calcium 8.5 Urine Color Straw Urine Clarity Turbid Urine pH 6.0 Ur Specific Pima 1.010 Urine Protein 100 H Urine Glucose [...] seen within the prostatic urethra. Reading Location: [facility] Management Discussion w/another healthcare provider: [employer] (Dr. [facility]) Discharge Plan Triage Chief [...] 324 mg PO QHS Primary Care Provider: [facility] Referrals[facility] [Primary Care Provider] - Keep Cezar appointment [...] to the ER for reevaluation. Print Language: Guatemalan Disposition Disposition: Home, Self Care What to do if you have Problems For any increased pain, shortness of breath, bleeding, nausea or vomiting, chestpain, or any unexpected problems, contact your Primary Care Provider. Call [facility] ([phone]) or report to the closest Emergency Room. Call 911 if necessary. 01/25/25 1728 <Electronically signed by Greg Ruiz MD> Cosigner Signature (if applicable): CC: [facility] ~ Signed [facility] Work Phone: 1(509) 957-112903-31-2025 Nuclear medicine Diagnostic study note [facility] Imaging Services [address] [place] [address] [id number] Renal Scan w/ Pharm Intervent MR#: [id number] Acct: [id number] Name: LORI LYNCH Rep #: [id number] : 1945 M 79 From: John Padilla MD [facility] Status: REG CLI Study:Renal Scan w/ Pharm Intervent Date of E xam: 01/21/25 Exam# [id number] Ordering Dr: Gian VALDES BLOCK GREASER-C PROCEDURE: RENAL SCAN W/ PHARM INTERVENT 01/21/2025 [...] with the injection of Lasix. Reading Location: [place] [address] CC: JANUARY MASON VALDES; [facility] ~ Insulator Apprentice: Signed [facility]03-21-2025 Discharge summary [facility] Medical Records Department [address] [place] [address] Emergency Department Summary 01/14/25 MR#: [id number] Acct: [id number] Name: LORI LYNCH Rep #:[id number] : 1945 79 From: Greg Ruiz MD PCP: [facility] Status:REG ER Location: ED HPI History of [...] thinks that is why it is leaking. [facility] Medical History BPH with obstruction/lower urinary [...] BID Qty: 14 0RF Primary Care Provider: [facility] Referrals[facility] [Primary Care Provider] - 3-5 Days if not improving Print Language: Guatemalan Disposition Disposition: Home, Self Care What to do if you have Problems For any increased pain, shortness of breath, bleeding, nausea or vomiting, chestpain, or any unexpected problems, contact your Primary Care Provider. Call [facility] ([phone]) or report tothe closest Emergency Room. Call 911 if necessary. 01/14/25 1426 Cosigner Signature (if applicable): CC: [facility] ~ Signed [facility]03-21-2025 Discharge summary Author Greg Ruiz [facility] Note Date/Time January 14, 2025 2:2 6pm [facility] Medical Records Department [address] [place] [address] Emergency Department Summary 01/14/25 MR#: [id number] Acct: [id number] Name: LORI LYNCH Rep #:[id number] : 1945 79 From: Greg Ruiz MD PCP: [facility] Status:REG ER Location: ED HPI History of [...] thinks that is why it is leaking. [facility] Medical History BPH with obstruction/lower urinary [...] BID Qty: 14 0RF [facility] Provider] - 3-5 Days if not improving Print Language: Guatemalan Disposition Disposition: Home, Self Care What to do if you have Problems For any increased pain, shortness of breath, bleeding, nausea or vomiting, chestpain, or any unexpected problems, contact your Primary Care Provider. Call [employer] Registry ([phone]) or report to the closest Emergency Room. Call 911 if necessary. 01/14/25 1426 <Electronically signed by Greg Ruiz MD> Cosigner Signature (if applicable): CC: [facility] ~ Signed [facility] Work Phone: [phone] 472-443609-17-2024 [facility] Medical Records Department [address] [place] [address] Discharge Summary 07/13/24 1040 MR#: [id number] Acct: [id number] Name: LORI LYNCH Rep #: [id number] : 1945 78 From: Apple Chavez MD PCP: [facility] Status:DIS IN Location: [facility] KR595-8 Providers Date of Admission: 07/09/24 Date of Discharge: 07/13/24 Primary Care Physician: [facility] Consultations 07/09/24 22:15 Consult: Urology Routine Consulting [...] prescription for p.o. tamsulos (more content not included)...[facility]02-09-2023 Telephone encounter Note* Telephone Encounter - Chasidy [...] will give it more time to work. [facility] [id number] Miscellaneous Notes* Telephone Encounter - Chasidy Keenan [...] but states he needs prescription sent to [place] [facility] instead. Rx switched to [place] pharmacy per patient request. * Telephone Encounter - TALITA Murillo CNP - 11/07/2022 2:17 PM EST Rx for tolterodine (Detrol LA) sent to [facility] in [place]. Please advise him it could take 6-8 [...] is not helping. Per previous TE's the [place] will not pay for myrbetriq. Patient aware to contact PCP if current gas pain is persistent.Patient voiced understanding. * Telephone Encounter - Marcelino Portillo - 11/07/2022 7:40 AM EST Name of caller: Phil Contact phone number: [phone] Relationship to Patient: patient Provider: Rabia Practice: Uro Chief Complaint/Reason for Call: Pt stating that he has been having gas pain with flatulence. He has tried beano, gas x and nothing has worked. He wants to know if something can be called into [facility] on [address] ph [phone]. Please call to let him know something not too expensive, by the way, will be called in for him or discuss further. Best time of day caller can be reached: Patient advised that office/PCP has 24-48 business hours to return their call: documented in this encounterSBl[facility] [id number] Telephone encounter Note* Telephone Encounter - Chasidy Keenan RN - 11/07/2022 4:13 PM EST Spoke with patient and relayed Yadi's note to him verbatim. He verbalizes understanding of allinformation provided, but states he needs prescription sent to [place] [facility] instead. Rx switched to [place] [facility] per patient request. [facility] [id number] Telephone encounter Note* Telephone Encounter - TALITA Murillo CNP - 11/07/2022 2:17 PM EST Rx for tolterodine (Detrol LA) sent to [facility] in [place]. Please advise him it could take 6-8 weeks to see full effect of the medication. If the medication causes any bothersome side effects such as dry eye, dry mouth, constipation, or difficulty urinating please have him call us. Thanks. [facility] [id number] Telephone encounter Note* Telephone Encounter - Kimberley [...] is not helping. Per previous TE's the [place] will not pay for myrbetriq. Patient aware to contact PCP if current gas pain is persistent.Patient voiced understanding. [employer]01-12-2023 Telephone encounter Note* Telephone Encounter - Marcelino Portillo - 11/07/2022 7:40 AM EST Name of caller: Phil Contact phone number: [phone] Relationship to Patient: patient Provider: [facility]ia Practice: Uro Chief Complaint/Reason for Call: Pt stating that he has been having gas pain with flatulence. He has tried beano, gas x and nothing has worked. He wants to know if something can be called into [facility] on [address] ph [phone]. Please call to let him know something not too expensive, by the way, will be called in for him or discuss further. Best time of day caller can be reached: Patient advised that office/PCP has 24-48 business hours to return their call: [employer]01-10-2023 Telephone encounter Note* Telephone Encounter - Kari Warren LPN - 11/05/2022 11:53 AM EST Patient informed of medication increase and needing 6 weeks follow up and PVR. Patient verbalized understanding and have no further questions or concerns at this time. Diagnostics-10-2023 Miscellaneous Notes* Telephone Encounter - Kari Warren [...] 11/04/2022 9:06 AM EST Rx sent [place] [facility] [place] Myrbetric 25 mg for patient [...] EST Lvm that script was sent into [facility] pharmacy today. Call if he has any further questions or concerns. * Telephone Encounter - TALITA Man CNP - 10/25/2022 12:21 PM EST Sent. Please let patient know * Telephone Encounter - Franky Huang RN - 10/25/2022 12:08 PM EST Pt called in and stated, Dr Camarillo was supposed to send [facility]. Someone needs to get their act together! I need this medicine! You need to let me know what's going on! Upon investigation, Trospium appears to have been sent to [facility] in [place]. Pt would prefer Rx sent to [facility]. Pharmacy in chart and below. [facility] - [place], [place] - [address] [[id number]] Routing to Dr Camarillo and APPs [facility]. Thank you. documented in this [facility]01-09-2023 Note* Addendum Note - TALITA Man CNP - 11/04/2022 2:42 PM ESTAddended by: SANDI PENA on: 11/04/2022 02:42 PM Modules accepted: Orders [facility] [id number] Note* Addendum Note - TALITA Man CNP - 11/04/2022 2:42 PM ESTAddended by: SANDI PENA on: 11/04/2022 02:42 PM Modules accepted: Orders [facility] [id number] Note* Addendum Note - TALITA Man CNP - 11/04/2022 2:42 PM ESTAddended by: SANDI PENA on: 11/04/2022 02:42 PM Modules accepted: Orders [facility] [id number] Note* Addendum Note - TALITA Man CNP - 11/04/2022 2:42 PM ESTAddended by: SANDI PENA on: 11/04/2022 02:42 PM Modules accepted: Orders [facility] [id number] Note* Addendum Note - TALITA Man CNP - 11/04/2022 2:42 PM ESTAddended by: SANDI PENA on: 11/04/2022 02:42 PM Modules accepted: Orders [facility] [id number] Miscellaneous Notes* Addendum Note - TALITA Man [...] 11/04/2022 9:06 AM EST Rx sent [place] [facility] [place] Myrbetric 25 mg for patient [...] EST Lvm that script was sent into [facility] pharmacy today. Call if he has any further questions or concerns. * Telephone Encounter - TALITA Man CNP - 10/25/2022 12:21 PM EST Sent. Please let patient know * Telephone Encounter - Franky Huang RN - 10/25/2022 12:08 PM EST Pt called in and stated, Dr Camarillo [facility]. Someone needs to get their act together! I need this medicine! You need to let me know what's going on! Upon investigation, Trospium appears to have been sent to [facility] in [place]. Pt would prefer Rx sent to [facility] Pharm[facility]. Pharmacy in chart and below. [facility] [place], [place] - [address] [[id number]] Routing to Dr Camarillo and APPs [facility] Thank you. documented in this [facility]01-09-2023 Telephone encounter Note* Telephone Encounter - TALITA Man CNP - 11/04/2022 2:41 PM EST Okay increased trospium to 20mg BID but still needs someone to schedule an appointment in 6 weeks to assess medication effectiveness and for PVR check. Thanks [facility]01-09-2023 Telephone encounter Note* Telephone Encounter - Chasidy Keenan RN - 11/04/2022 2:31 PM EST Called and spoke with patient. [facility] states [facility]. He wants to know if he can try a stronger dose of trospium instead. Please advise. [address]09-2023 Note* Addendum Note - TALITA Ruiz CNP - 11/04/2022 9:08 AM ESTAddended by: LOREN TREADWELL on: 11/04/2022 09:08 AM Modules accepted: Orders [address]09-2023 Note* Addendum Note - TALITA Ruiz CNP - 11/04/2022 9:08 AM ESTAddended by: LOREN TREADWELL on: 11/04/2022 09:08 AM Modules accepted: Orders [address]09-2023 Note* Addendum Note - TALITA Ruiz CNP - 11/04/2022 9:08 AM ESTAddended by: LOREN TREADWELL on: 11/04/2022 09:08 AM Modules accepted: Orders [address]09-2023 Note* Addendum Note - TALITA Ruiz CNP - 11/04/2022 9:08 AM ESTAddended by: LOREN TREADWELL on: 11/04/2022 09:08 AM Modules accepted: Orders [facility]01-09-2023 Note* Addendum Note - TALITA Ruiz CNP - 11/04/2022 9:08 AM ESTAddended by: LOREN TREADWELL on: 11/04/2022 09:08 AM Modules accepted: Orders [facility]01-09-2023 Telephone encounter Note* Telephone Encounter - TALITA Ruiz CNP - 11/04/2022 9:06 AM EST Rx sent [place] [facility] [place] Myrbetric 25 mg for patient to try. Please schedule an appointment in 6 weeks to assess medication effectiveness and for PVR check. Thanks [facility]01-09-2023 Telephone encounter Note* Telephone Encounter - Trice [...] to try somethingelse. Please advise, thank you. [facility]12-30-2022 Telephone encounter Note* Telephone Encounter - Kari Warren LPN - 10/25/2022 12:28 PM EST Lvm that script was sent into [facility] pharmacy today. Call if he has any further questions or concerns. [facility]12-30-2022 Telephone encounter Note* Telephone Encounter - TALITA Man CNP - 10/25/2022 12:21 PM EST Sent. Please let patient know [facility]12-30-2022 Telephone encounter Note* Telephone Encounter - Franky Huang RN - 10/25/2022 12:08 PM EST Pt called in and stated, Dr Camarillo was supposed to send [place] [facility] [place] [facility] [place], but the [place] says they [place]'t received anything yet. Someone needs to get their act together! I need this medicine! You need to let me know what's going on! Upon investigation, Trospium appears to have been sent to [facility] in [place] Pt would prefer Rx sent to [facility]. Pharmacy in chart and below. [facility] - [place], [place] - [address] [[id number]] Routing to Dr Camarillo and APPs to send to [place] [facility]. Thank you. [facility]12-02-2022 NoteI agree with plan of care. He can call us if symptoms persist and we can redo urine testing. Closing encounter.[facility]10-20-2022 Hospital Discharge instructions* Discharge Instructions* [place] [...] your scheduled surgery time. Please bring your [facility] Surgical folder and medication list with you day of surgery. We encourage you to write down any questions you may have for the surgeon, anesthesiologist, or other members of the surgical team and bring it with you the day of surgery. Please bring photo ID and insurance information. You may use the free paint grinder parking at the main entrance on [address] [place] [address], or the free parking in the [facility] parking deck * Attachments The following attachments cannot be sent through Care Everywhere. * Cystoscopy: Post-op (Guatemalan) [facility] Work Phone: Evaluation noteNo assessment information available [facility] Work Phone: Evaluation note* Diagnosis Pre-op testing- Primary Preoperative examination, unspecified documented in this encounter [facility] Work Phone: Evaluation note* Diagnosis Frequency of urination Urinary frequency documented in this encounter [facility] WP Fail-SafeEvaluation note* Diagnosis Frequency of urination Urinary frequency documented in this encounter [facility]* Diagnosis Urgency of urination- Primary documented in this encounter [facility]* Diagnosis Benign prostatic hyperplasia with urinary retention- Primary Renal cysts, acquired, bilateral Acquired cyst of kidney documented in this encounter [facility] Discharge instructions Additional Instructions Your prostate is [...] catheter again, return to the ER for reevaluation.[facility] Work Phone: Hospital Discharge instructionsAdditional Instructions Your Diego catheter was adjusted and now seems to be draining normally. If you have any issues you can return to the ER or see your urologist.[facility] Work Phone: Hospital Discharge instructionsAdditional Instructions Your Diego catheter was replaced. If you have any issues you can return to the ER or see your urologist.[facility] Work Phone: Hospital Discharge instructionsAdditional Instructions Follow-up with [place]rologist [place] the [place]. Antibiotics as directed. Return with fever, new or worsening symptoms.[facility] Work Phone: Reason for referral (narrative)No reason for referral information availableWRegency Hospital Company Work Phone: Chief Complaint and Reason for [...] gu c/o April 29, 2025 1:02p m Chief Complaint Admit Date leaking diego January 14, 2025 11: 36am HYDRONEPHROSIS January 21, 2025 10: 28am diego complications possible uti January 252024 11:17am CATH LEAKING March 02, 2025 9:44am LUNG CANCER April 05, 2025 7:42 am gu c/o April 29, 2025 1:02p m gu May 08, 2025 7:09 am Chief Complaint Admit Date leaking diego January 14, 2025 11: 36am HYDRONEPHROSIS January 21, 2025 10: 28am diego complications possible uti January 252024 11:17am CATH LEAKING March 02, 2025 9:44am LUNG CANCER April 05, 2025 7:42 am gu c/o April 29, 2025 1:02p m gu May 08, 2025 7:09 am UPPER EXTREMITY May 09, 2025 7:43 pm Chief Complaint Admit Date CATH LEAKING March 02, 2025 9:44am LUNG CANCER April 05, 2025 7:42 am gu c/o April 29, 2025 1:02p m gu May 08, 2025 7:09 am UPPER EXTREMITY May 09, 2025 7:43 pm LEFT LUNG NODULE May 23, 2025 8:42 am Diego problem May 26, 2025 6:21 pm Advance Directives No Advanced Directives Records Found Advance Directive Response Recorded Date/ Time Living Will No March 14, 2022 1 2:35pm Power of Plaster Machine Tender No March 14, 2022 12:35pm Advance Directive Response Recorded Date/ Time Living Will No March 14, 2022 1 1:35am Power of Plaster Machine Tender No March 14, 2022 11:35am Latest Code Status on File Code Status Date Activated Date Inactivated Comments Full Code 08/23/2022 5:17 PM 08/25/2022 3:35 PM Advance Directive Response Recorded Date/ Time Living Will Yes November 13 11:14pm Do you have a Healthcare Power of Plaster Machine Tender? Yes November 13, 2024 11:14pm Name of Medical Power of Plaster Machine Tender - LARA November 13, 2024 11:14pm Living Will No January 14, 2025 12:37pm Do you have a Healthcare Power of Plaster Machine Tender? No January 14, 2025 12:37pm Advance Directive Response Recorded Date/ Time Living Will No January 25, 2025 11:28am Do you have a Healthcare Power of Plaster Machine Tender? No January 25, 2025 11:28am Living Will Yes November 13 11:14pm Do you have a Healthcare Power of Plaster Machine Tender? Yes November 13, 2024 11:14pm Name of Medical Power of Plaster Machine Tender - LARA November 13, 2024 11:14pm Living Will No January 14, 2025 12:37pm Do you have a Healthcare Power of Plaster Machine Tender? No January 14, 2025 12:37pm Advance Directive Response Recorded Date/ Time Living Will No January 25, 2025 11:28am Do you have a Healthcare Power of Plaster Machine Tender? No January 25, 2025 11:28am Living Will Yes November 13 11:14pm Do you have a Healthcare Power of Plaster Machine Tender? Yes November 13, 2024 11:14pm Name of Medical Power of Plaster Machine Tender - LARA November 13, 2024 11:14pm Living Will No January 14, 2025 12:37pm Do you have a Healthcare Power of Plaster Machine Tender? No January 14, 2025 12:37pm Do you have a Healthcare Power of Plaster Machine Tender? Yes March 02, 2025 11:09am Name of Medical Power of Plaster Machine Tender March 02, 2025 11:09am Advance Directive Response Recorded Date/ Time Living Will No January 25, 2025 11:28am Do you have a Healthcare Power of Plaster Machine Tender? No January 25, 2025 11:28am Living Will No January 14, 2025 12:37pm Do you have a Healthcare Power of Plaster Machine Tender? No January 14, 2025 12:37pm Do you have a Healthcare Power of Plaster Machine Tender? Yes March 02, 2025 11:09am Name of Medical Power of Plaster Machine Tender March 02, 2025 11:09am Advance Directive Response Recorded Date/ Time Living Will No January 25, 2025 11:28am Do you have a Healthcare Power of Plaster Machine Tender? No January 25, 2025 11:28am Living Will No January 14, 2025 12:37pm Do you have a Healthcare Power of Plaster Machine Tender? No January 14, 2025 12:37pm Do you have a Healthcare Power of Plaster Machine Tender? Yes March 02, 2025 11:09am Name of Medical Power of Plaster Machine Tender March 02, 2025 11:09am Do you have a Healthcare Power of Plaster Machine Tender? Yes April 29, 2025 1:08pm Advance Directive Response Recorded Date/ Time Living Will No January 25, 2025 11:28am Do you have a Healthcare Power of Plaster Machine Tender? No January 25, 2025 11:28am Do you have a Healthcare Power of Plaster Machine Tender? No May 08, 2025 7:54am Living Will No January 14, 2025 12:37pm Do you have a Healthcare Power of Plaster Machine Tender? No January 14, 2025 12:37pm Do you have a Healthcare Power of Plaster Machine Tender? Yes March 02, 2025 11:09am Name of Medical Power of Plaster Machine Tender March 02, 2025 11:09am Do you have a Healthcare Power of Plaster Machine Tender? Yes April 29, 2025 1:08pm Advance Directive Response Recorded Date/ Time Do you have a Healthcare Power of Plaster Machine Tender? No May 08, 2025 7:54am Do you have a Healthcare Power of Plaster Machine Tender? No May 26, 2025 6:45pm Do you have a Healthcare Power of Plaster Machine Tender? Yes March 02, 2025 11:09am Name of Medical Power of Plaster Machine Tender March 02, 2025 11:09am Do you have a Healthcare Power of Plaster Machine Tender? Yes April 29, 2025 1:08pm Summary Purpose [...] Care Teams (unrecognized sec tion and content) Coping Machine Assembler Relationship Specialty Start Date End Date Yolis Musa PA-C [address] [place] [address] PCP - General Gastroenterology 05/30/22 Team Status: Active Member Role Status Dates ESTELA GUTIÉRERZ Primary Care Provider Active Team Status: Inactive [...] PORTILLO Attending Provider, Referring Provider Ac tive Coping Machine Assembler Relationship Specialty Start Date End Date Yolis Musa PCP - General 05/30/22 Sintia Burger, [address] [place] [address] Surgeon Urology 08/25/22 Franc Zambrano MD [address] [place] [address] Surgeon Urology 08/25/22 Heri Camarillo MD [address] [place] [address] Surgeon Urology 09/16/22 Coping Machine Assembler Relationship Specialty Start Date End Date Yolis Musa PCP - General 05/30/22 Snitia Burger DO [address] [place] [address] Surgeon Urology 08/25/22 Franc Zambrano MD [address] [place] [address] Surgeon Urology 08/25/22 Heri Camarillo MD [address] [place] [address] Surgeon Urology 09/16/22 Coping Machine Assembler Relationship Specialty Start Date End Date Yolis Musa PCP - General 05/30/22 Sintia Burger DO [address] [place] [address] Surgeon Urology 08/25/22 Franc Zambrano MD [address] [place] [address] Surgeon Urology 08/25/22 Heri Camarillo MD [address] [place] [address] Surgeon Urology 09/16/22 Team Status: Active Member Role Status Dates [facility] Primary Care Provider Active Team Status: Inactive Member Role Status Dates [facility] Primary Care Provider Active Start: November 13, 2024 End: November 13, 2024 Dr. Rowdy Shearer DO Attending Provider Active Start: November 13, 2024 End: November 13, 2024 Dr. Rowdy Shearer DO Emergency Provider Active Start: November 13, 2024 End: November 13, 2024 Team Status: Inactive Member Role Status Dates [facility] Primary Care Provider Active Start: January 14, 2025 End: January 14, 2025 Dr. Greg Ruiz MD Emergency Provider Active Start: January 14, 2025 End: January 14, 2025 Team Status: Inactive Member Role Status Dates [facility] Primary Care Provider Active Start: January 14, 2025 End: January 14, 2025 Dr. Greg Ruiz MD Attending Provider Active Start: January 14, 2025 End: January 14, 2025 Dr. Greg Ruiz MD Emergency Provider Active Start: January 14, 2025 End: January 14, 2025 Team Status: Inactive Member Role Status Dates [facility] Primary Care Provider Active Start: January 21, 2025 End: January 21, 2025January KEISHA BLOCK GREASER-C Attending Provider Active St art: January 21, 2025 End: January 21, 2025January KEISHA BLOCK GREASER-C Referring Provider Active St art: January 21, 2025 End: January 21, 2025 Team Status: Active Member Role Status Dates [facility] Primary Care Provider Active Start: January 25, 2025 Dr. Greg Ruiz MD Emergency Provider Active Start: January 25, 2025 Team Status: Inactive Member Role Status Dates [facility] Primary Care Provider Active Start: January 25, 2025 End: January 25, 2025 Dr. Greg Ruiz MD Emergency Provider Active Start: January 25, 2025 End: January 25, 2025 Team Status: Inactive Member Role Status [facility] Primary Care Provider Active Start: January 25, 2025 End: January 25, 2025 Dr. Greg Ruiz MD Attending Provider Active Start: January 25, 2025 End: January 25, 2025 Dr. Greg Ruiz MD Emergency Provider Active Start: January 25, 2025 End: January 25, 2025 Team Status: Inactive Member Role Status [facility] Primary Care Provider Active Start: March 02, 2025 End: March 02, 2025 Dr. Clayton Croft DO Emergency Provider Active Start: March 02, 2025 End: March 02, 2025 Team Status: Inactive Member Role Status [facility] Primary Care Provider Active Start: March 02, 2025 End: March 02, 2025 Dr. Clayton Croft DO Attending Provider Active Start: March 02, 2025 End: March 02, 2025 Dr. Clayton Croft DO Emergency Provider Active Start: March 02, 2025 End: March 02, 2025 Team Status: Inactive Member Role Status [facility] Primary Care Provider Active Start: March 24, 2025 End: March 24, 2025 Chikis Hernandez NP-C Attending Provider Active Star t: March 24, 2025 End: March 24, 2025 Chikis Hernandez NP-C Referring Provider Active Star t: March 24, 2025 End: March 24, 2025 Team Status: Inactive Member Role Status [facility] Primary Care Provider Active Start: March 29, 2025 End: March 29, 2025 IRMA GOMES Attending Provider Active Sta rt: March 29, 2025 End: March 29, 2025 IRMA GOMES Referring Provider Active Sta rt: March 29, 2025 End: March 29, 2025 Team Status: Inactive Member Role Status [facility] Primary Care Provider Active Start: April 05, 2025 End: April 05, 2025 IRMA GOMES Attending Provider Active Sta rt: April 05, 2025 End: April 05, 2025 IRMA GOMES Referring Provider Active Sta rt: April 05, 2025 End: April 05, 2025 Team Status: Active Member Role Status [facility] Primary Care Provider Active Start: March 29, 2025 IRMA GOMES Attending Provider Active Sta rt: March 29, 2025 IRMA GOMES Referring Provider Active Sta rt: March 29, 2025 Coping Machine Assembler Relationship Specialty Start Date End Date [facility] [address] [address] PCP - General 02/10/25 [place] [address] [place] [address] Referring Urology 07/30/23 Team Status: Active Member Role/Relationship Status [facility] Primary Care Provider Active Team Status: Inactive Member Role/Relationship Status [facility] Primary Care Provider Active Start: January 14, 2025 End: January 14, 2025 Dr. Greg Ruiz MD Attending Provider Active Start: January 14, 2025 End: January 14, 2025 Dr. Greg Ruiz MD Emergency Provider Active Start: January 14, 2025 End: January 14, 2025 Team Status: Inactive Member Role/Relationship Status [facility] Primary Care Provider Active Start: January 21, 2025 End: January 21, 2025January KEISHA BLOCK GREASER-C Attending Provider Active St art: January 21, 2025 End: January 21, 2025January KEISHA BLOCK GREASER-C Referring Provider Active St art: January 21, 2025 End: January 21, 2025 Team Status: Inactive Member Role/Relationship Status [facility] Primary Care Provider Active Start: January 25, 2025 End: January 25, 2025 Dr. Greg Ruiz MD Attending Provider Active Start: January 25, 2025 End: January 25, 2025 Dr. Greg Ruiz MD Emergency Provider Active Start: January 25, 2025 End: January 25, 2025 Team Status: Inactive Member Role/Relationship Status [facility] Primary Care Provider Active Start: March 02, 2025 End: March 02, 2025 Dr. Clayton Croft DO Attending Provider Active Start: March 02, 2025 End: March 02, 2025 Dr. Clayton Croft DO Emergency Provider Active Start: March 02, 2025 End: March 02, 2025 Team Status: Inactive Member Role/Relationship Status [facility] Primary Care Provider Active Start: March 24, 2025 End: March 24, 2025 Chikis Hernandez NP-C Attending Provider Active Star t: March 24, 2025 End: March 24, 2025 Chikis Hernandez NP-C Referring Provider Active Star t: March 24, 2025 End: March 24, 2025 Team Status: Inactive Member Role/Relationship Status [facility] Primary Care Provider Active Start: April 05, 2025 End: April 05, 2025 IRMA GOMES Attending Provider Active Sta rt: April 05, 2025 End: April 05, 2025 IRMA GOMES Referring Provider Active Sta rt: April 05, 2025 End: April 05, 2025 Team Status: Inactive Member Role/Relationship Status [facility] Primary Care Provider Active Start: April 29, 2025 End: April 29, 2025 Dr. William Seals DO Emergency Provider Active Start: April 29, 2025 End: April 29, 2025 Team Status: Inactive Member Role/Relationship Status [facility] Primary Care Provider Active Start: April 29, 2025 End: April 29, 2025 Dr. William Seals DO Attending Provider Active Start: April 29, 2025 End: April 29, 2025 Dr. William Seals DO Emergency Provider Active Start: April 29, 2025 End: April 29, 2025 Team Status: Inactive Member Role/Relationship Status [facility] Primary Care Provider Active Start: May 08, 2025 End: May 08, 2025 Dr. William Seals DO Emergency Provider Active Start: May 08, 2025 End: May 08, 2025 Team Status: Inactive Member Role/Relationship Status [facility] Primary Care Provider Active Start: May 09, 2025 End: May 09, 2025 Ed Physician Provider Emergency Provider Active Start: May 09, 2025 End: May 09, 2025 Team Status: Inactive Member Role/Relationship Status [facility] Primary Care Provider Active Start: March 02, 2025 End: March 02, 2025 Dr. Clayton Croft DO Attending Provider Active Start: March 02, 2025 End: March 02, 2025 Dr. Clayton Croft DO Emergency Provider Active Start: March 02, 2025 End: March 02, 2025 Team Status: Inactive Member Role/Relationship Status [facility] Primary Care Provider Active Start: March 24, 2025 End: March 24, 2025 MASON Tejada Attending Provider Active Star t: March 24, 2025 End: March 24, 2025 MASON Tejada Referring Provider Active Star t: March 24, 2025 End: March 24, 2025 Team Status: Inactive Member Role/Relationship Status [facility] Primary Care Provider Active Start: April 05, 2025 End: April 05, 2025 IRMA GOMES Attending Provider Active Sta rt: April 05, 2025 End: April 05, 2025 IRMA GOMES Referring Provider Active Sta rt: April 05, 2025 End: April 05, 2025 Team Status: Inactive Member Role/Relationship Status [facility] Primary Care Provider Active Start: April 29, 2025 End: April 29, 2025 Dr. William Seals DO Attending Provider Active Start: April 29, 2025 End: April 29, 2025 Dr. William Seals DO Emergency Provider Active Start: April 29, 2025 End: April 29, 2025 Team Status: Inactive Member Role/Relationship Status [facility] Primary Care Provider Active Start: May 08, 2025 End: May 08, 2025 Dr. William Seals DO Attending Provider Active Start: May 08, 2025 End: May 08, 2025 Dr. William Seals DO Emergency Provider Active Start: May 08, 2025 End: May 08, 2025 Team Status: Inactive Member Role/Relationship Status [facility] Primary Care Provider Active Start: May 09, 2025 End: May 09, 2025 Ed Physician Provider Attending Provider Active Start: May 09, 2025 End: May 09, 2025 Ed Physician Provider Emergency Provider Active Start: May 09, 2025 End: May 09, 2025 Team Status: Active Member Role/Relationship Status [facility] Primary Care Provider Active Start: May 23, 2025 IRMA GOMES Attending Provider Active Sta rt: May 23, 2025 IRMA GOMES Referring Provider Active Sta rt: May 23, 2025 Team Status: Inactive Member Role/Relationship Status [facility] Primary Care Provider Active Start: May 26, 2025 End: May 26, 2025 Oscar Valencia MD Emergency Provider Active Star t: May 26, 2025 End: May 26, 2025 Team Status: Inactive Member Role/Relationship Status [facility] Primary Care Provider Active Start: May 23, 2025 End: May 23, 2025 IRMA GOMES Attending Provider Active Sta rt: May 23, 2025 End: May 23, 2025 IRMA GOMES Referring Provider Active Sta rt: May 23, 2025 End: May 23, 2025 (unrecognized sect ion and content) No Status Records FoundNo Status Records FoundNo Status Records FoundNo Status Records Found INFORMATION SOURCE (unrecogn ized section and content) DATE CREATED AUTHOR 08/24/2022 [facility] DATE CREATED AUTHOR AUTHOR'S ORGANIZ ATION 12/06/2022 [facility] DATE CREATED AUTHOR AUTHOR'S ORGANIZ ATION 04/23/2025 [facility] DATE CREATED AUTHOR AUTHOR'S ORGANIZ ATION 06/04/2025 [facility] Reason for Visit (unrecogniz ed section and content) Reason Onset Date Comments Medication Question 10/25/2022 Reason Onset Date Comments Gas 11/07/2022 Pt stating that he has been having gas pain with flatulence. He has tried beano, gas x and nothing has worked. He wants to know if something can be called into [facility] on [address] ph [phone]. Please call to let him know something not too expensive, by the way, will be called in for him or discuss further. 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/would like SPT place in lieu of chronic diego/ref by [facility] (Estela [phone] ext [phone] Procedures OFFICE/OUTPATIENT NEW MODERATE MDM 45 MINUTES OFFICE/OUTPATIENT ESTABLISHED MOD MDM 30 MIN NEW UROL Clinic, Me Alec Tinajero MD [address] [place] [address] Phone: tel: fax: Referral ID Status Reason Start Date Expiration Date V isits Requested Visits Authorized [id number] Authorized 02/07/2025 08/06/2025 99 99 Source Comments (unrecognize d section and content) In the event this informatio n is protected by the Federal Confidentiality of Alcohol and Drug Abuse Patient Records regulations: The Federal rules restrict any use of the information to criminally investigate or prosecute any alcohol or drug abuse patient.[facility] FOR RECORDS PERTAINING TO PATIENTS [...] BE BASED ON THE PRIMARY CLINICAL RECORDS. [facility], [facility]. provides no warranty or guarantee of the accuracy or completeness of information in this document.
[2025-06-23 22:46] VITALS: BP 132/77; PULSE 66; RESP 14; TEMP 36.6; O2SAT 95
== END 2025-06-23 22:47 | disposition home or self-care (01) ==
LOC: ED 22:31
PROVIDERS: Emergency Provider Emergency Medicine; Visit Provider Emergency Medicine
DX: T83.091A Other mechanical complication of indwelling urethral catheter, initial encounter (principal); E11.9 Type 2 diabetes mellitus without complications; Z79.4 Long term (current) use of insulin; I10 Essential (primary) hypertension; E78.00 Pure hypercholesterolemia, unspecified; Z85.118 Personal history of other malignant neoplasm of bronchus and lung; N40.0 Benign prostatic hyperplasia without lower urinary tract symptoms; Z79.899 Other long term (current) drug therapy; Z79.84 Long term (current) use of oral hypoglycemic drugs; Z79.82 Long term (current) use of aspirin; Z96.619 Presence of unspecified artificial shoulder joint; F17.210 Nicotine dependence, cigarettes, uncomplicated
CPT/HCPCS: 99282; A4216

== ENCOUNTER 2025-06-24 10:54 | Emergency (ER) | payer OTHER, SELFPAY ==
[2025-06-24 10:54] VITALS: BP 146/88; PULSE 95; RESP 14; TEMP 36.1; O2SAT 98; BMI 32.5
--- NOTE | 2025-06-24 10:56 | ED.RN ---
PT COMPLAINING ABOUT TRIAGE PROCESS I WAS HERE LAST NIGHT YOU SHOULD HAVE THIS IMFORMATION.
--- NOTE | 2025-06-24 11:03 | EX.ED.DYSGE1 ---
HPI <AILYN Daniels - Last Filed: 06/24/25 12:24> History of Present Illness Chief Complaint: Diego C/O Narrative Narrative: 79-year-old male has BPH with a chronic indwelling Diego catheter changed monthly at the [facility]. It was changed at the [facility] yesterday and he presented last night to our emergency room because it was not draining. The nurse irrigated sediment and it is draining now but he developed leaking around where the Diego exits his penis. He states has had this problem in the last several times the [facility] has changed it because they use a coud? and then he has had to come here to get a straight catheter which resolved the issue. He denies fever chills nausea vomiting abdominal or flank pain or any other issues. [facility] <AILYN Daniels - Last Filed: 06/24/25 12:24> [facility] Medical History BPH with obstruction/lower urinary tract symptoms UTI (urinary tract infection) Leukocytosis Acute kidney injury Acute lactic acidosis Generalized weakness Diabetes High cholesterol HTN (hypertension) Smoker Prostate enlargement Lung cancer Home Medications ?Medication ?Instructions ?Recorded ?Last Taken ?Type amlodipine 10 mg tablet 10 mg PO DAILY BP 07/10/24 01/25/25 History aspirin 81 mg chewable tablet 81 mg PO DAILY blood thinner 07/10/24 01/24/25 History atorvastatin 40 mg tablet 40 mg PO QHS cholesterol 07/10/24 01/24/25 History glipizide 10 mg tablet 5 mg PO DAILY diabetes 07/10/24 05/22/25 History insulin glargine 100 unit/mL (3 10 unit subcut QHS diabetes 07/10/24 01/24/25 History mL) subcutaneous pen pregabalin 75 mg capsule (Lyrica) 75 mg PO BID pain 07/10/24 01/25/25 History sitagliptin 25 mg tablet 25 mg PO DAILY diabetes 07/10/24 01/25/25 History finasteride 5 mg tablet 5 mg PO DAILY #30 tabs 07/13/24 01/25/25 Rx ferrous gluconate 324 mg (38 mg 324 mg PO QHS 01/25/25 01/24/25 History iron) tablet levofloxacin 750 mg tablet 750 mg PO DAILY #5 tabs 05/11/25 Unknown Rx levofloxacin 750 mg tablet 750 mg PO DAILY #7 tabs 05/26/25 Unknown Rx levofloxacin 750 mg tablet 750 mg PO DAILY 6 days #6 tabs 06/24/25 Unknown Rx Allergy/AdvReac Type Severity Reaction Status Date / Time amoxicillin (From Augmentin) Allergy Hives Verified 06/24/25 10:55 clavulanic acid (From Allergy Hives Verified 06/24/25 10:55 Augmentin) lisinopril Allergy Other Verified 06/24/25 10:55 Family History Other Diabetes Surgical History H/O shoulder replacement Social History Smoking Status: Current every day smoker tobacco type: cigarettes ROS <AILYN Daniels - Last Filed: 06/24/25 12:24> ROS ED ROS Narrative Constitutional: Negative for fever, chills, malaise. GI: Negative for abdominal pain, nausea, vomiting. : Negative for hematuria. EXAM <AILYN Daniels - Last Filed: 06/24/25 12:24> Physical Exam Narrative Exam Narrative: CONST: Patient sitting in no acute distress. EYES: Normal inspection. NECK: Normal inspection. RESP: No respiratory distress, CTAB. CVS: Regular rate and rhythm, no murmur, no gallop. ABD: Soft and nontender, no guarding or rebound, nondistended. : Leg bag with clear yellow urine. SKIN: Color normal, no rash, warm, dry, intact. EXTREMITIES: Normal appearance, no pedal edema. NEURO: Alert and answering questions appropriately. PSYCH: Normal affect. Const Vital Signs: 06/24/25 10:54 06/24/25 12:35 Temperature 97 F L 98.0 F Temperature Source Temporal Pulse Rate 95 87 Respiratory Rate 14 16 Blood Pressure 146/88 H 149/81 H Blood Pressure Mean 107 103 Pulse Ox 98 99 Oxygen Delivery Method Room Air <Dr. William Seals DO - Last Filed: 06/24/25 15:16> Physical Exam Const Vital Signs: 06/24/25 10:54 06/24/25 12:35 Temperature 97 F L 98.0 F Temperature Source Temporal Pulse Rate 95 87 Respiratory Rate 14 16 Blood Pressure 146/88 H 149/81 H Blood Pressure Mean 107 103 Pulse Ox 98 99 Oxygen Delivery Method Room Air [facility] <AILYN Daniels - Last Filed: 06/24/25 12:24> [facility] Narrative Medical decision making narrative: Diego catheter was exchanged and is no longer leaking. Urinalysis has 500 leukocyte esterase, over 100 red and white blood cells, but is nitrite and bacteria negative. It was sent for culture. Most recent culture was negative for growth however he has had multiple other infections in the past responsive to Levaquin so I prescribed this. First dose given in ED. He should follow-up with his [facility] urology team or return if issues arise. He was discharged in stable condition. Lab Data Attestation: I reviewed the patient's lab results. Labs: Laboratory Results - last 24 hr 06/24/25 11:15 Urine Color Yellow Urine Clarity Cloudy Urine pH 6.5 Ur Specific [place] 1.010 Urine Protein 100 H Urine Glucose (UA) 50 H Urine Ketones Negative Urine Occult Blood 250 H Urine Nitrite Negative Urine Bilirubin Negative Urine Urobilinogen Normal Ur Leukocyte Esterase 500 H Urine RBC > 100 SEEN Urine WBC >100 SEEN Ur Squamous Epith Cells 0 SEEN Urine Bacteria 0 SEEN Urine Mucus 0 SEEN <Dr. William Seals DO - Last Filed: 06/24/25 15:16> [facility] Lab Data Labs: Laboratory Results - last 24 hr 06/24/25 11:15 Urine Color Yellow Urine Clarity Cloudy Urine pH 6.5 Ur Specific [place] 1.010 Urine Protein 100 H Urine Glucose (UA) 50 H Urine Ketones Negative Urine Occult Blood 250 H Urine Nitrite Negative Urine Bilirubin Negative Urine Urobilinogen Normal Ur Leukocyte Esterase 500 H Urine RBC > 100 SEEN Urine WBC >100 SEEN Ur Squamous Epith Cells 0 SEEN Urine Bacteria 0 SEEN Urine Mucus 0 SEEN Treatment and Re-Evaluation :: I have personally performed a face to face assessment of the patient and have reviewed the GIA Note. I performed a substantive portion of the visit including all aspects of the following. My rankin findings include: History: Patient presents with leaking around his Diego catheter that began yesterday. Patient states that it got better last night. Patient states it started again today. Patient admits to some burning around his urethra and penis. Patient states it is worse when he is sitting up and walking. Patient states it is better when he is able to lay down. Patient denies any fevers or chills. Patient denies any nausea or vomiting. Patient denies any neck or back pain. Exam: Vital signs are stable. Patient is afebrile. Patient is in no acute distress. Oral mucosa is pink and moist. Neck is supple. Trachea is midline. There is no JVD. Heart was regular rate and rhythm. Lungs are clear and equal bilaterally. Abdomen is soft. Bowel sounds are normal. There is no tenderness. Cranial nerves II through XII are intact. There are no focal motor or sensory deficits noted. Medical Decision Making: Differential diagnosis includes urinary tract infection, and dysfunctional Diego catheter. The Diego catheter will be replaced. Urinalysis will be obtained to assess for urinary tract infection. Urine culture will be obtained to assess for urinary tract infection. Urinalysis was reviewed. Leukocyte esterase was 500. There are greater than 100 white blood cells and greater than 100 red blood cells. There is no bacteria noted. Patient was given a dose of Levaquin here. Patient was given a prescription for Levaquin. Patient was instructed to follow-up with his primary care physician in 5 to 7 days. Patient understood and was agreeable with the plan. All questions were answered. Discharge Plan Triage Chief Complaint: Diego C/O ED Midlevel Provider: Chikis Puckett ED Provider: William Seals Dx/Rx/DC Orders Clinical Impression: Complication of Diego catheter, History of BPH, Acute UTI Instructions: ED Diego Catheter, Care Prescriptions: New levofloxacin 750 mg tablet 750 mg PO DAILY 6 Days Qty: 6 0RF No Action insulin glargine 100 unit/mL (3 mL) insulin pen 10 unit subcut QHS aspirin 81 mg tablet,chewable 81 mg PO DAILY Patient Comments: PT TAKES IN EVENING atorvastatin 40 mg tablet 40 mg PO QHS pregabalin [Lyrica] 75 mg capsule 75 mg PO BID sitagliptin 25 mg tablet 25 mg PO DAILY amlodipine 10 mg tablet 10 mg PO DAILY glipizide 10 mg tablet 5 mg PO DAILY finasteride 5 mg Tablet 5 mg PO DAILY Qty: 30 1RF ferrous gluconate 324 mg (38 mg iron) tablet 324 mg PO QHS levofloxacin 750 mg tablet 750 mg PO DAILY Qty: 5 0RF levofloxacin 750 mg tablet 750 mg PO DAILY Qty: 7 0RF Primary Care [facility] - Activity Restrictions/Additional Instructions: Your Diego catheter was exchanged and I prescribed antibiotics for a UTI. [facility]. Print Language: American Disposition Disposition: Home, Self Care Discharge Date/Time: 06/24/25 12:36
[2025-06-24 11:29] LABS: Mucous, Urine 0 SEEN /hpf (<or=2+); Squamous Epithelial Cells - UA 0 SEEN /hpf (0-5)
[2025-06-24 11:55] LABS: Color, Urine Yellow (Yellow); Glucose, Dipstick 50 mg/dl (Normal); Ketone-Dipstick Negative (Negative); Leukocyte Esterase-Dipstick 500 /ul (Negative); Nitrite-Dipstick Negative (Negative); Occult Blood-Urine 250 /ul (Negative); Protein-Dipstick 100 mg/dl (Negative); Specific Gravity, Urine 1.010 (1.002-1.030); Urine Bilirubin Dipstick Negative (Negative)
[2025-06-24 12:14] LABS: Red Blood Cells-Urine > 100 SEEN /hpf (0-5)
[2025-06-24 12:35] VITALS: BP 149/81; PULSE 87; RESP 16; TEMP 36.7; O2SAT 99
== END 2025-06-24 12:36 | disposition home or self-care (01) ==
LOC: ED 11:27
PROVIDERS: Emergency Provider Emergency Medicine; Visit Provider Emergency Medicine
DX: T83.091A Other mechanical complication of indwelling urethral catheter, initial encounter (principal); E11.9 Type 2 diabetes mellitus without complications; Z79.4 Long term (current) use of insulin; N40.0 Benign prostatic hyperplasia without lower urinary tract symptoms; I10 Essential (primary) hypertension; E78.00 Pure hypercholesterolemia, unspecified; N39.0 Urinary tract infection, site not specified; Z85.118 Personal history of other malignant neoplasm of bronchus and lung; Z79.899 Other long term (current) drug therapy; Z79.82 Long term (current) use of aspirin; Z79.84 Long term (current) use of oral hypoglycemic drugs; Z96.619 Presence of unspecified artificial shoulder joint; F17.210 Nicotine dependence, cigarettes, uncomplicated
CPT/HCPCS: 51702; 81001; 87086; 99283

== ENCOUNTER → 2025-07-26 | Outpatient (CLI) | payer OTHER, SELFPAY ==
--- OUTSIDE RECORDS SUMMARY | 2025-04-22 08:06 | XMS RPT_ITS ---
Author Name Auto Generated Organization [facility] Care Team Providers Care Vp Digital Marketing Name Role Phone ALEC JOY Attending Unavailabl e ALEC JOY Attending Unavailabl e PROBLEMS DATE TYPE CONDITION / CODE ATTENDING STATUS MO [facility] 03/15/2025 Active Benign prostatic hyperplasia with urinary retention / N40.1(ICD-10) ALEC JOY Active [facility] 03/15/2025 Active Benign prostatic hyperplasia with urinary retention / R33.8(ICD-10) ALEC JOY Active [facility] PROCEDURES No Procedure Records Found RESULTS CNOV Observed: 04/22/2025 8:30 AM Status: COMPLETED Source: [facility] Office Visit (AKURFL) LORI LYNCH ([id number]) 1945 M Date Time Provider Department 04/22/25 8:30 AM ALEC JOY During your visit today, we recorded the following information about you: Alec Joy MD 04/22/2025 8:38 AM Signed ESTABLISHED PATIENT OFFICE VISIT Wellness Ambassador present: Nina Sexton MA PATIENT INFO: Lori Lynch 79 year old HPI 04/22/2025 CC: bph [facility] to [facility] off on cyst[facility] and ultrasound of prostate and we now have the records and CAT scan shows massive prostate Patient does want to get catheter free Discussed options of holmium laser nucleation versus robotic simple prostatectomy with Dr. Florez He wants to connect with Dr. Florez so we will refer He is only on baby aspirin with respect to any blood thinners Denies chest pain Past Urology Hx: 03/15/2025 Pt CC: patricio VOIDING SYMPTOMS: In June 2024 patient went into [facility] since [facility] and [facility] talked him [facility] [place] but he wants to come to [place] as it is closer to [place] where he lives Has had catheter change in [place] Had a aqua ablation in the past and saw Dr. Camarillo as noted below but a lot of urine frequency then that persisted Catheter has been draining well now No fevers or chills Follows his elevated creatinine [facility] report showed some mild bilateral hydroureter and severe BPH with bilateral renal cysts and some might be 2F and suggested follow-up Instructed him to get disc with films from [place] where he had them and see me back for cystoscopy and ultrasound of prostate and go from there October 18, 2022-seen by Dr. Camarillo/rishabh- 77 y.o. male who presents for telehealth visit regarding frequency after Aquablation. Aquablation 08/22/2022. Still on tamsulosin and finasteride. Feels that he empties his bladder adequately. However he has very severe urgency and frequency. No hematuria or dysuria Labs/Radiology/Procedures: January 2025-MRI abdomen and pelvis outside institution-bilateral Bosniak 1-2 F renal cysts and severely enlarged prostate with tmeasurement of 8 cm by 7.3 cm February 10, 2025-CT/external-bilateral renal cysts scaling from 1-2 F and mild bilateral hydroureter left greater than right and severe BPH No results found for: CREAT No results found for: PSA No results found for: COLOR, CLARITY, UGLUC, UBILI, UKET, SPGR, UHB, UPH, UPROT, UROBILINOGEN, NITRITES, LEUKEST Review of Systems Constitutional: Negative. HENT: Negative. Eyes: Negative. Respiratory: Negative. Cardiovascular: Negative. Gastrointestinal: Negative. Endocrine: Negative. Genitourinary: See HPI Musculoskeletal: Negative. Skin: Negative. Allergic/Immunologic: Negative. Neurological: Negative. Hematological: Negative. Psychiatric/Behavioral: Negative. I reviewed and confirmed ROS obtained by [facility] HISTORIES PAST MEDICAL HISTORY Diagnosis [...] No respiratory distress. Musculoskeletal: General: No deformity. Skin: General: Skin is warm. Neurological: Mental Status: He is alert and oriented to person, place, and time. Gait: Gait is intact. Psychiatric: Mood and Affect: Mood and affect normal. Cognition and Memory: Memory normal. Risk/Benefit Discussion: TUR Prostate I explained the options concerning surgery versus medication.I explained the possibility of impotency, retrograde ejaculation, and incontinence ,the possibility of blood loss, and transfusion and the fact that he may be admitted post operatively. I explained the post operative urgency, frequency, and dysuria. Risk of anesthesia complications, stroke, MT, etc.The patient expressed an understanding with regard to possible complications and outcome. Discussed options alpha clifford therapy vs proscar vs surical intervention and risks of these. Alpha bolckers can cause dizzines and falls. Discussed risk bladder decompinsation termite treater could be an issue if no surgical intervention. FOLLOW UP ([id number]; 3s): Return if symptoms worsen or fail to improve. ASSESSMENT/PLAN: 1. Benign prostatic hyperplasia with urinary retention - ICD9: 600.01, 788.20, ICD10: N40.1, R33.8 Refer-Dr. Florez for simple robotic prostatectomy - US CYSTO/TRUS (POC) GUKI USE ONLY 2. Bilateral renal cysts-range from Bosniak 1-2 F Could be followed in the future Alec Joy The sensitive exam: The sensitive examination was discussed with the Patient or Patient's Authorized Preschool Assistant Director. As applicable, any other physician, advance practice provider, medical student, or other health professional student that will be observing or involved in the sensitive examination for educational or training purposes was discussed with the Patient or Authorized Preschool Assistant Director. The Patient or Authorized Preschool Assistant Director has agreed to proceed with the sensitive examination. (Sensitive examination includes inspection and/or palpation of the breasts, pelvis, prostate and anorectal regions) Please note: This note has been produced using speech recognition software and may contain errors related to that system including grammar, punctuation, spelling, gender and words and phrases that may be inappropriate. Alec Joy MD 04/22/2025 8:27 AM Signed INSTRUCTIONS FROM DR. JOY: We will have you see Dr. Florez my partner about robotic surgery to open the prostate PATIENT INFORMATION: Benign Enlargement of the Prostate Benign (noncancerous) enlargement of the prostate, known as benign prostatic hyperplasia, or BPH, is the most common prostate problem in men. Almost all men will develop some enlargement of the prostate as they age. Who is affected by prostate enlargement? Overall, the number of men with BPH increases progressively with age. By age 60, 50% of men will have some signs of BPH. By age 85, 90% of men will have signs of the condition. About half of these men will develop symptoms that need to be treated. Does having benign prostatic hyperplasia increase your risk of developing prostate cancer? Based on research to date, having BPH does not seem to increase the risk of developing prostate cancer. However, BPH and prostate cancer have similar symptoms, and a man who has BPH may have undetected cancer at the same time. To help detect prostate cancer in its early stages, the [place] [employer] and the [place] [employer] recommend a screening every year for men ages 50 to 70. They further recommend that men who are at high risk -- such as -[place] men and men with a family history of prostate cancer -- begin screening at about age 40. Screening tests for prostate cancer include a blood test for a substance called prostate-specific antigen (PSA) and the digital rectal exam (MARIANO). What are the symptoms of benign prostatic hyperplasia? Since the prostate gland surrounds the urethra (the tube that carries urine outside the body), it is easy to understand that enlargement of the prostate can lead to blockage of the tube. Therefore, you may develop: Slowness or dribbling of your urinary stream Hesitancy or difficulty starting to urinate Frequent urination Feeling of urgency (sudden need to urinate) Need to get up at night to urinate As symptoms progress, you may develop: The enlargement of the prostate can lead to blockage of the urethra. Bladder stones Bladder infection Blood in your urine Damage to your kidneys from back pressure caused by retaining large amounts of extra urine in the bladder Sudden blockage of the urinary tube, making urination impossible How is benign prostatic hyperplasia diagnosed? Your doctor will look at your medical history and give you a complete physical. Your doctor will perform a digital rectal examination by inserting a gloved, lubricated finger into your rectum to feel the prostate. Because the prostate gland is in front of the rectum, it is relatively easy for the doctor to feel much of the gland. This enables him or her to estimate the size of the prostate and to detect any hard areas that could be cancer. Several studies may be performed to help diagnose your condition: A seven-question survey may be completed to evaluate your symptoms. A flow study may be conducted to measure how slow the urinary stream is compared with normal flow. A study may be conducted to detect how much urine is left in the bladder after urination is completed. In addition, the physician may need to look into the bladder. The procedure is called cystoscopy. How is benign prostatic hyperplasia treated? Patients with mild symptoms may not require treatment other than continued observation to make sure their condition doesn't get worse. This approach is sometimes called watchful waiting or surveillance. There are a number of treatment options available if your symptoms are severe: Treatments for BPH include: Medication Proscar was one of the first drugs used to treat BPH. It works by slowing the production of the hormone dihydrotestosterone (DHT), which affects the growth of the prostate gland. Proscar appears to be most beneficial for men with larger prostates. Drugs that relax the muscle in the prostate (to reduce the tension on the urine tube) are more commonly used. These include Hytrin, Cardura, and Flomax. The most common side effects are light-headedness and weakness. Surgery A number of surgical procedures have been used to remove the prostate tissue blocking the flow of urine. The most common procedure is called transurethral resection of the prostate (TURP). There are several different variations on this technique. It involves removing the tissue blocking the urethra (urine tube) with a special instrument. Although TURP is an effective treatment, there are potential side effects, including bleeding, infection, impotence (inability to maintain an erection suitable for sex) and incontinence (inability to control the flow of urine). Transurethral electrovaporization: This technique uses electrical energy applied through an electrode to rapidly heat prostate tissue, turning the tissue cells into steam. This allows the doctor to vaporize an area of the enlarged tissue and relieve urinary blockage. The Greenlight laser: This is commonly used to treat BPH and is associated with less bleeding after the procedure. Another, less complicated procedure is transurethral incision of the prostate (TUIP). Instead of removing tissue, as with TURP, this approach involves widening the urethra by making several small cuts in the bladder neck (area where the urethra and bladder join), as well as in the prostate gland itself. This relieves some of the pressure on the urethra and improves urine flow. Referring Provider: [facility] [[id number]] Allergies As of Date: 04/22/2025 Noted Allergy Reaction LISINOPRIL 06/07/2022 3 - Cough INSULIN GLARGINE 06/07/2022 2 - Rash Comments: At injection site Rash at injection site Date Reviewed: 04/22/2025 Reviewed by: Alec Joy MD - Fully Assessed Reason for Visit: Cystoscopy-1 [303] Trus Procedure [381] Primary Visit Diagnosis:Benign prostatic hyperplasia with urinary retention [N40.1, R33.8] Other Visit Diagnosis:Renal cysts, acquired, bilateral [N28.1] Prescriptions as of 04/22/2025 - albuterol HFA (PROVENTIL HFA, VENTOLIN HFA) 90 mcg/actuation inhaler Inhale as instructed. - amLODIPine (NORVASC) 10 mg tablet Take 10 mg by mouth once daily. - aspirin, enteric coated (ASPIRIN, ENTERIC COATED) 81 mg EC tablet Take 81 mg by mouth once daily. - atorvastatin (LIPITOR) 40 mg tablet Take 40 mg by mouth daily at bedtime. - finasteride (PROSCAR) 5 mg tablet Take 5 mg by mouth. - glipiZIDE (GLUCOTROL) 10 mg tablet Take 10 mg by mouth every morning. - tamsulosin (FLOMAX) 0.4 mg Take 0.4 mg by mouth. - trospium (SANCTURA) 20 mg tablet Take 20 mg by mouth. - pregabalin (LYRICA) 75 mg capsule Take 75 mg by mouth two times a day. Problem List As Of Date 04/22/2025 Noted Resolved Hydroureter [N13.4] 03/15/2025 Renal cysts, acquired, bilateral [N28.1] 03/15/2025 Benign prostatic hyperplasia with urinary reten*03/15/2025 Other instructions from your clinician: INSTRUCTIONS FROM DR. JOY: We will have you see Dr. Florez my partner about robotic surgery to open the prostate PATIENT INFORMATION: Benign Enlargement of the Prostate Benign (noncancerous) enlargement of the prostate, known as benign prostatic hyperplasia, or BPH, is the most common prostate problem in men. Almost all men will develop some enlargement of the prostate as they age. Who is affected by prostate enlargement? Overall, the number of men with BPH increases progressively with age. By age 60, 50% of men will have some signs of BPH. By age 85, 90% of men will have signs of the condition. About half of these men will develop symptoms that need to be treated. Does having benign prostatic hyperplasia increase your risk of developing prostate cancer? Based on research to date, having BPH does not seem to increase the risk of developing prostate cancer. However, BPH and prostate cancer have similar symptoms, and a man who has BPH may have undetected cancer at the same time. To help detect prostate cancer in its early stages, the [place] [employer] and the [place] [employer] recommend a screening every year for men ages 50 to 70. They further recommend that men who are at high risk -- such as -[place] men and men with a family history of prostate cancer -- begin screening at about age 40. Screening tests for prostate cancer include a blood test for a substance called prostate-specific antigen (PSA) and the digital rectal exam (MARIANO). What are the symptoms of benign prostatic hyperplasia? Since the prostate gland surrounds the urethra (the tube that carries urine outside the body), it is easy to understand that enlargement of the prostate can lead to blockage of the tube. Therefore, you may develop: Slowness or dribbling of your urinary stream Hesitancy or difficulty starting to urinate Frequent urination Feeling of urgency (sudden need to urinate) Need to get up at night to urinate As symptoms progress, you may develop: The enlargement of the prostate can lead to blockage of the urethra. Bladder stones Bladder infection Blood in your urine Damage to your kidneys from back pressure caused by retaining large amounts of extra urine in the bladder Sudden blockage of the urinary tube, making urination impossible How is benign prostatic hyperplasia diagnosed? Your doctor will look at your medical history and give you a complete physical. Your doctor will perform a digital rectal examination by inserting a gloved, lubricated finger into your rectum to feel the prostate. Because the prostate gland is in front of the rectum, it is relatively easy for the doctor to feel much of the gland. This enables him or her to estimate the size of the prostate and to detect any hard areas that could be cancer. Several studies may be performed to help diagnose your condition: A seven-question survey may be completed to evaluate your symptoms. A flow study may be conducted to measure how slow the urinary stream is compared with normal flow. A study may be conducted to detect how much urine is left in the bladder after urination is completed. In addition, the physician may need to look into the bladder. The procedure is called cystoscopy. How is benign prostatic hyperplasia treated? Patients with mild symptoms may not require treatment other than continued observation to make sure their condition doesn't get worse. This approach is sometimes called watchful waiting or surveillance. There are a number of treatment options available if your symptoms are severe: Treatments for BPH include: Medication Proscar was one of the first drugs used to treat BPH. It works by slowing the production of the hormone dihydrotestosterone (DHT), which affects the growth of the prostate gland. Proscar appears to be most beneficial for men with larger prostates. Drugs that relax the muscle in the prostate (to reduce the tension on the urine tube) are more commonly used. These include Hytrin, Cardura, and Flomax. The most common side effects are light-headedness and weakness. Surgery A number of surgical procedures have been used to remove the prostate tissue blocking the flow of urine. The most common procedure is called transurethral resection of the prostate (TURP). There are several different variations on this technique. It involves removing the tissue blocking the urethra (urine tube) with a special instrument. Although TURP is an effective treatment, there are potential side effects, including bleeding, infection, impotence (inability to maintain an erection suitable for sex) and incontinence (inability to control the flow of urine). Transurethral electrovaporization: This technique uses electrical energy applied through an electrode to rapidly heat prostate tissue, turning the tissue cells into steam. This allows the doctor to vaporize an area of the enlarged tissue and relieve urinary blockage. The Greenlight laser: This is commonly used to treat BPH and is associated with less bleeding after the procedure. Another, less complicated procedure is transurethral incision of the prostate (TUIP). Instead of removing tissue, as with TURP, this approach involves widening the urethra by making several small cuts in the bladder neck (area where the urethra and bladder join), as well as in the prostate gland itself. This relieves some of the pressure on the urethra and improves urine flow. Disposition: Return if symptoms worsen or fail to improve. Follow-up and Disposition History for Encounter Date Provider Department Center 04/22/2025 [id number] JOY HOW*[facility] Encounter Status:Closed by ALEC JOY on 04/22/25 PROGRESS Observed: 04/22/2025 8:07 AM Status: COMPLETED Source: [facility] HNO ID: [id number] Author: ALEC JOY MD Service: ? Author Type: Physician Type: Progress Notes Filed: 04/22/2025 08:38 Note Text: ESTABLISHED PATIENT OFFICE VISIT Wellness Ambassador present: Nina Sexton MA PATIENT INFO: Lori Lynch 79 year old HPI 04/22/2025 CC: bph [facility] Wants to [facility] off on cystoscopy and ultrasound of prostate and we now have the records and CAT scan shows massive prostate Patient does want to get catheter free Discussed options of holmium laser nucleation versus robotic simple prostatectomy with Dr. Florez He wants to connect with Dr. Florez so we will refer He is only on baby aspirin with respect to any blood thinners Denies chest pain Past Urology Hx: 03/15/2025 Pt CC: patricio VOIDING SYMPTOMS: In June 2024 patient went into [facility] since then [facility] and they talked him about getting [facility] [place] but he wants to come to [place] as it is closer to [place] where he lives Has had catheter change in [place] Had a aqua ablation in the past and saw Dr. Camarillo as noted below but a lot of urine frequency then that persisted Catheter has been draining well now No fevers or chills Follows [facility] report showed some mild bilateral hydroureter and severe BPH with bilateral renal cysts and some might be 2F and suggested follow-up Instructed him to get disc with films from [place] where he had them and see me back for cystoscopy and ultrasound of prostate and go from there October 18, 2022-seen by Dr. Camarillo/rishabh- 77 y.o. male who presents for telehealth visit regarding frequency after Aquablation. Aquablation 08/22/2022. Still on tamsulosin and finasteride. Feels that he empties his bladder adequately. However he has very severe urgency and frequency. No hematuria or dysuria Labs/Radiology/Procedures: January 2025-MRI abdomen and pelvis outside institution-bilateral Bosniak 1-2 F renal cysts and severely enlarged prostate with tmeasurement of 8 cm by 7.3 cm February 10, 2025-CT/external-bilateral renal cysts scaling from 1-2 F and mild bilateral hydroureter left greater than right and severe BPH No results found for: CREAT No results found for: PSA No results found for: COLOR, CLARITY, UGLUC, UBILI, UKET, SPGR, UHB, UPH, UPROT, UROBILINOGEN, NITRITES, LEUKEST Review of Systems Constitutional: Negative. HENT: Negative. Eyes: Negative. Respiratory: Negative. Cardiovascular: Negative. Gastrointestinal: Negative. Endocrine: Negative. Genitourinary: See HPI Musculoskeletal: Negative. Skin: Negative. Allergic/Immunologic: Negative. Neurological: Negative. Hematological: Negative. Psychiatric/Behavioral: Negative. I reviewed and confirmed ROS obtained by [facility] HISTORIES PAST MEDICAL HISTORY Diagnosis [...] No respiratory distress. Musculoskeletal: General: No deformity. Skin: General: Skin is warm. Neurological: Mental Status: He is alert and oriented to person, place, and time. Gait: Gait is intact. Psychiatric: Mood and Affect: Mood and affect normal. Cognition and Memory: Memory normal. Risk/Benefit Discussion: TUR Prostate I explained the options concerning surgery versus medication.I explained the possibility of impotency, retrograde ejaculation, and incontinence ,the possibility of blood loss, and transfusion and the fact that he may be admitted post operatively. I explained the post operative urgency, frequency, and dysuria. Risk of anesthesia complications, stroke, MT, etc.The patient expressed an understanding with regard to possible complications and outcome. Discussed options alpha clifford therapy vs proscar vs surical intervention and risks of these. Alpha bolckers can cause dizzines and falls. Discussed risk bladder decompinsation termite treater could be an issue if no surgical intervention. FOLLOW UP ([id number]; 3s): Return if symptoms worsen or fail to improve. ASSESSMENT/PLAN: 1. Benign prostatic hyperplasia with urinary retention - ICD9: 600.01, 788.20, ICD10: N40.1, R33.8 Refer-Dr. Florez for simple robotic prostatectomy - US CYSTO/TRUS (POC) GUKI USE ONLY 2. Bilateral renal cysts-range from Bosniak 1-2 F Could be followed in the future Alec Joy The sensitive exam: The sensitive examination was discussed with the Patient or Patient's Authorized Preschool Assistant Director. As applicable, any other physician, advance practice provider, medical student, or other health professional student that will be observing or involved in the sensitive examination for educational or training purposes was discussed with the Patient or Authorized Preschool Assistant Director. The Patient or Authorized Preschool Assistant Director has agreed to proceed with the sensitive examination. (Sensitive examination includes inspection and/or palpation of the breasts, pelvis, prostate and anorectal regions) Please note: This note has been produced using speech recognition software and may contain errors related to that system including grammar, punctuation, spelling, gender and words and phrases that may be inappropriate. CNOV Observed: 03/15/2025 9:00 AM Status: COMPLETED Source: [facility] Office Visit (AKURFL) LYNCHLORI JOHNSON ([id number]) 1945 M Date Time Provider Department 03/15/25 9:00 AM ALEC JOY During your visit today, we recorded the following information about you: Alec Joy MD 03/16/2025 2:56 PM Signed NEW PATIENT HISTORY AND PHYSICAL EXAM patient declined rn managed care PATIENT INFO: Lori Lynch 79 year old HPI 03/15/2025 Pt CC: patricio VOIDING SYMPTOMS: In June 2024 patient went into retention and [facility] has been changing the [facility] monthly since then [facility] and [facility] him [facility] [place] but he wants to come to [place] as it is closer to [place] where he lives Has had catheter change in [place] Had a aqua ablation in the past and saw Dr. Camarillo as noted below but a lot of urine frequency then that persisted Catheter has been draining well now No fevers or chills Follows [facility] report showed some mild bilateral hydroureter and severe BPH with bilateral renal cysts and some might be 2F and suggested follow-up Instructed him to get disc with films from [place] where he had them and see me [...] discussed with the Patient or Patient's Authorized Preschool Assistant Director. As applicable, any other physician, advance practice provider, medical student, or other health professional student that will be observing or involved in the sensitive examination for educational or training purposes was discussed with the Patient or Authorized Preschool Assistant Director. The Patient or Authorized Preschool Assistant Director has agreed to proceed with the sensitive [...] to possible complications and outcome. FOLLOW UP: Return in about 3 weeks (around 04/05/2025). ASSESSMENT/PLAN: 1. Benign prostatic hyperplasia with urinary retention - ICD9: 600.01, 788.20, ICD10: N40.1, R33.8 (primary diagnosis) Cystoscopy/ultrasound prostate 2. Renal cysts, acquired, bilateral - ICD9: 593.2, ICD10: N28.1 3. Hydroureter - ICD9: 593.5, ICD10: N13.4 Alec Joy Please note: This note has been produced using speech recognition software and may contain errors related to that system including grammar, punctuation, spelling, gender and words and phrases that may be inappropriate. Alec Joy MD 03/15/2025 9:18 AM Signed INSTRUCTIONS FROM DR. JOY: I will see you back to perform the cystoscopy and ultrasound of the prostate PATIENT INFORMATION: Cystoscopy is a test that uses a thin, lighted tube called a cystoscope to see the inside of the bladder and the urethra (the tube that carries urine out of the body). The doctor can use the scope to look for bladder stones, tumors, bleeding, and sources of infection. This test lets your doctor look at areas of your bladder and urethra that do not show up well on X-rays. You are likely having this test to find out what is causing the blood in your urine, but your doctor may also do this test to evaluate other possible bladder problems. Your doctor may be able to tell you some of the results right after the test. The test usually takes less than 5 minutes and no special preparation is required (you may eat and drink and take your medications as usual before the test). Your doctor may prescribe a single dose of an antibiotic before the test if he feel's that you may be at increased risk for developing an infection (a 2-3% risk). Cystoscopy is usually done in the office with a local anesthetic that is instilled directly into your urethra. There is perhaps some temporary discomfort with urination after the test. PATIENT INFORMATION: Benign Enlargement of the Prostate Benign (noncancerous) enlargement of the prostate, known as benign prostatic hyperplasia, or BPH, is the most common prostate problem in men. Almost all men will develop some enlargement of the prostate as they age. Who is affected by prostate enlargement? Overall, the number of men with BPH increases progressively with age. By age 60, 50% of men will have some signs of BPH. By age 85, 90% of men will have signs of the condition. About half of these men will develop symptoms that need to be treated. Does having benign prostatic hyperplasia increase your risk of developing prostate cancer? Based on research to date, having BPH does not seem to increase the risk of developing prostate cancer. However, BPH and prostate cancer have similar symptoms, and a man who has BPH may have undetected cancer at the same time. To help detect prostate cancer in its early stages, the [place] [employer] and the [place] [employer] recommend a screening every year for men ages 50 to 70. They further recommend that men who are at high risk -- such as -[place] men and men with a family history of prostate cancer -- begin screening at about age 40. Screening tests for prostate cancer include a blood test for a substance called prostate-specific antigen (PSA) and the digital rectal exam (MARIANO). What are the symptoms of benign prostatic hyperplasia? Since the prostate gland surrounds the urethra (the tube that carries urine outside the body), it is easy to understand that enlargement of the prostate can lead to blockage of the tube. Therefore, you may develop: Slowness or dribbling of your urinary stream Hesitancy or difficulty starting to urinate Frequent urination Feeling of urgency (sudden need to urinate) Need to get up at night to urinate As symptoms progress, you may develop: The enlargement of the prostate can lead to blockage of the urethra. Bladder stones Bladder infection Blood in your urine Damage to your kidneys from back pressure caused by retaining large amounts of extra urine in the bladder Sudden blockage of the urinary tube, making urination impossible How is benign prostatic hyperplasia diagnosed? Your doctor will look at your medical history and give you a complete physical. Your doctor will perform a digital rectal examination by inserting a gloved, lubricated finger into your rectum to feel the prostate. Because the prostate gland is in front of the rectum, it is relatively easy for the doctor to feel much of the gland. This enables him or her to estimate the size of the prostate and to detect any hard areas that could be cancer. Several studies may be performed to help diagnose your condition: A seven-question survey may be completed to evaluate your symptoms. A flow study may be conducted to measure how slow the urinary stream is compared with normal flow. A study may be conducted to detect how much urine is left in the bladder after urination is completed. In addition, the physician may need to look into the bladder. The procedure is called cystoscopy. How is benign prostatic hyperplasia treated? Patients with mild symptoms may not require treatment other than continued observation to make sure their condition doesn't get worse. This approach is sometimes called watchful waiting or surveillance. There are a number of treatment options available if your symptoms are severe: Treatments for BPH include: Medication Proscar was one of the first drugs used to treat BPH. It works by slowing the production of the hormone dihydrotestosterone (DHT), which affects the growth of the prostate gland. Proscar appears to be most beneficial for men with larger prostates. Drugs that relax the muscle in the prostate (to reduce the tension on the urine tube) are more commonly used. These include Hytrin, Cardura, and Flomax. The most common side effects are light-headedness and weakness. Surgery A number of surgical procedures have been used to remove the prostate tissue blocking the flow of urine. The most common procedure is called transurethral resection of the prostate (TURP). There are several different variations on this technique. It involves removing the tissue blocking the urethra (urine tube) with a special instrument. Although TURP is an effective treatment, there are potential side effects, including bleeding, infection, impotence (inability to maintain an erection suitable for sex) and incontinence (inability to control the flow of urine). Transurethral electrovaporization: This technique uses electrical energy applied through an electrode to rapidly heat prostate tissue, turning the tissue cells into steam. This allows the doctor to vaporize an area of the enlarged tissue and relieve urinary blockage. The Greenlight laser: This is commonly used to treat BPH and is associated with less bleeding after the procedure. Another, less complicated procedure is transurethral incision of the prostate (TUIP). Instead of removing tissue, as with TURP, this approach involves widening the urethra by making several small cuts in the bladder neck (area where the urethra and bladder join), as well as in the prostate gland itself. This relieves some of the pressure on the urethra and improves urine flow. Referring Provider: [facility] [[id number]] Allergies As of Date: 03/15/2025 (Not on File) Date Reviewed: 03/15/2025 Reviewed by: Alec Joy MD - Fully Assessed Reason for Visit: Urinary Retention [228] Primary Visit Diagnosis:Benign prostatic hyperplasia with urinary retention [N40.1, R33.8] Other Visit Diagnoses:Renal cysts, acquired, bilateral [N28.1] Hydroureter [N13.4] Prescriptions as of 03/16/2025 - albuterol HFA (PROVENTIL HFA, VENTOLIN HFA) 90 mcg/actuation inhaler Inhale as instructed. - amLODIPine (NORVASC) 10 mg tablet Take 10 mg by mouth once daily. - aspirin, enteric coated (ASPIRIN, ENTERIC COATED) 81 mg EC tablet Take 81 mg by mouth once daily. - atorvastatin (LIPITOR) 40 mg tablet Take 40 mg by mouth daily at bedtime. - finasteride (PROSCAR) 5 mg tablet Take 5 mg by mouth. - glipiZIDE (GLUCOTROL) 10 mg tablet Take 10 mg by mouth every morning. - tamsulosin (FLOMAX) 0.4 mg Take 0.4 mg by mouth. - trospium (SANCTURA) 20 mg tablet Take 20 mg by mouth. - pregabalin (LYRICA) 75 mg capsule Take 75 mg by mouth two times a day. Problem List As Of Date 03/15/2025 Noted Resolved Hydroureter [N13.4] 03/15/2025 Renal cysts, acquired, bilateral [N28.1] 03/15/2025 Benign prostatic hyperplasia with urinary reten*03/15/2025 Other instructions from your clinician: INSTRUCTIONS FROM DR. JOY: I will see you back to perform the cystoscopy and ultrasound of the prostate PATIENT INFORMATION: Cystoscopy is a test that uses a thin, lighted tube called a cystoscope to see the inside of the bladder and the urethra (the tube that carries urine out of the body). The doctor can use the scope to look for bladder stones, tumors, bleeding, and sources of infection. This test lets your doctor look at areas of your bladder and urethra that do not show up well on X-rays. You are likely having this test to find out what is causing the blood in your urine, but your doctor may also do this test to evaluate other possible bladder problems. Your doctor may be able to tell you some of the results right after the test. The test usually takes less than 5 minutes and no special preparation is required (you may eat and drink and take your medications as usual before the test). Your doctor may prescribe a single dose of an antibiotic before the test if he feel's that you may be at increased risk for developing an infection (a 2-3% risk). Cystoscopy is usually done in the office with a local anesthetic that is instilled directly into your urethra. There is perhaps some temporary discomfort with urination after the test. PATIENT INFORMATION: Benign Enlargement of the Prostate Benign (noncancerous) enlargement of the prostate, known as benign prostatic hyperplasia, or BPH, is the most common prostate problem in men. Almost all men will develop some enlargement of the prostate as they age. Who is affected by prostate enlargement? Overall, the number of men with BPH increases progressively with age. By age 60, 50% of men will have some signs of BPH. By age 85, 90% of men will have signs of the condition. About half of these men will develop symptoms that need to be treated. Does having benign prostatic hyperplasia increase your risk of developing prostate cancer? Based on research to date, having BPH does not seem to increase the risk of developing prostate cancer. However, BPH and prostate cancer have similar symptoms, and a man who has BPH may have undetected cancer at the same time. To help detect prostate cancer in its early stages, the [place] [employer] and the [place] [employer] recommend a screening every year for men ages 50 to 70. They further recommend that men who are at high risk -- such as -[place] men and men with a family history of prostate cancer -- begin screening at about age 40. Screening tests for prostate cancer include a blood test for a substance called prostate-specific antigen (PSA) and the digital rectal exam (MARIANO). What are the symptoms of benign prostatic hyperplasia? Since the prostate gland surrounds the urethra (the tube that carries urine outside the body), it is easy to understand that enlargement of the prostate can lead to blockage of the tube. Therefore, you may develop: Slowness or dribbling of your urinary stream Hesitancy or difficulty starting to urinate Frequent urination Feeling of urgency (sudden need to urinate) Need to get up at night to urinate As symptoms progress, you may develop: The enlargement of the prostate can lead to blockage of the urethra. Bladder stones Bladder infection Blood in your urine Damage to your kidneys from back pressure caused by retaining large amounts of extra urine in the bladder Sudden blockage of the urinary tube, making urination impossible How is benign prostatic hyperplasia diagnosed? Your doctor will look at your medical history and give you a complete physical. Your doctor will perform a digital rectal examination by inserting a gloved, lubricated finger into your rectum to feel the prostate. Because the prostate gland is in front of the rectum, it is relatively easy for the doctor to feel much of the gland. This enables him or her to estimate the size of the prostate and to detect any hard areas that could be cancer. Several studies may be performed to help diagnose your condition: A seven-question survey may be completed to evaluate your symptoms. A flow study may be conducted to measure how slow the urinary stream is compared with normal flow. A study may be conducted to detect how much urine is left in the bladder after urination is completed. In addition, the physician may need to look into the bladder. The procedure is called cystoscopy. How is benign prostatic hyperplasia treated? Patients with mild symptoms may not require treatment other than continued observation to make sure their condition doesn't get worse. This approach is sometimes called watchful waiting or surveillance. There are a number of treatment options available if your symptoms are severe: Treatments for BPH include: Medication Proscar was one of the first drugs used to treat BPH. It works by slowing the production of the hormone dihydrotestosterone (DHT), which affects the growth of the prostate gland. Proscar appears to be most beneficial for men with larger prostates. Drugs that relax the muscle in the prostate (to reduce the tension on the urine tube) are more commonly used. These include Hytrin, Cardura, and Flomax. The most common side effects are light-headedness and weakness. Surgery A number of surgical procedures have been used to remove the prostate tissue blocking the flow of urine. The most common procedure is called transurethral resection of the prostate (TURP). There are several different variations on this technique. It involves removing the tissue blocking the urethra (urine tube) with a special instrument. Although TURP is an effective treatment, there are potential side effects, including bleeding, infection, impotence (inability to maintain an erection suitable for sex) and incontinence (inability to control the flow of urine). Transurethral electrovaporization: This technique uses electrical energy applied through an electrode to rapidly heat prostate tissue, turning the tissue cells into steam. This allows the doctor to vaporize an area of the enlarged tissue and relieve urinary blockage. The Greenlight laser: This is commonly used to treat BPH and is associated with less bleeding after the procedure. Another, less complicated procedure is transurethral incision of the prostate (TUIP). Instead of removing tissue, as with TURP, this approach involves widening the urethra by making several small cuts in the bladder neck (area where the urethra and bladder join), as well as in the prostate gland itself. This relieves some of the pressure on the urethra and improves urine flow. Disposition: Return in about 3 weeks (around 04/05/2025). Follow-up and Disposition History for Encounter Date Provider Department Center 03/15/2025 [id number] JOY WILLIAM*[facility] Encounter Status:Closed by ALEC JOY on 03/16/25 PROGRESS Observed: 03/15/2025 8:59 AM Status: COMPLETED Source: [facility] HNO ID: [id number] Author: ALEC JOY MD Service: ? Author Type: Physician Type: Progress Notes Filed: 03/16/2025 14:56 Note Text: NEW PATIENT HISTORY AND PHYSICAL EXAM patient declined rn managed care PATIENT INFO: Lori Lynch 79 year old HPI 03/15/2025 Pt CC: patricio VOIDING SYMPTOMS: In June 2024 patient went into retention and the [facility] has been [facility] monthly since then [facility] and they talked him about getting [facility] at [facility] [place] but he wants to come to [place] as it is closer to [place] where he lives Has had catheter change in [place] Had a aqua ablation in the past and saw Dr. Camarillo as noted below but a lot of urine frequency then that persisted Catheter has been draining well now No fevers or chills Follows his elevated creatinine [facility] report showed some mild bilateral hydroureter and severe BPH with bilateral renal cysts and some might be 2F and suggested follow-up Instructed him to get disc with films from [place] where he had them and see me [...] discussed with the Patient or Patient's Authorized Preschool Assistant Director. As applicable, any other physician, advance practice provider, medical student, or other health professional student that will be observing or involved in the sensitive examination for educational or training purposes was discussed with the Patient or Authorized Preschool Assistant Director. The Patient or Authorized Preschool Assistant Director has agreed to proceed with the sensitive [...] to possible complications and outcome. FOLLOW UP: Return in about 3 weeks (around 04/05/2025). ASSESSMENT/PLAN: 1. Benign prostatic hyperplasia with urinary retention - ICD9: 600.01, 788.20, ICD10: N40.1, R33.8 (primary diagnosis) Cystoscopy/ultrasound prostate 2. Renal cysts, acquired, bilateral - ICD9: 593.2, ICD10: N28.1 3. Hydroureter - ICD9: 593.5, ICD10: N13.4 Alec Joy Please note: This note has been produced using speech recognition software and may contain errors related to that system including grammar, punctuation, spelling, gender and words and phrases that may be inappropriate. ALLERGIES DATE TYPE / CODE NAME / CODE REACTION SEVERITY SOURCE 06/07/2022 DRUG INGREDI/[id number]( SNOMED CT) LISINOPRIL COUGH [facility] 06/07/2022 DRUG INGREDI/[id number]( SNOMED CT) INSULIN GLARGINE RASH [facility] ENCOUNTERS ADMIT/DISCHARGE ACCOUNT NUMBER ADMITTING ENCOUNTER CLASS LOC ATION SOURCE 04/22/2025/04/22/2025 [id number] [facility] 03/15/2025/03/15/2025 [id number] Ambulatory [facility] PAYERS ENCOUNTER GUARANTOR PAYER SUBSCRIBER SOURCE 04/22/2025 Primary Insuranc e:[facility] OPTUMPolicy Number: [id number] luis Date:[id number] Name:Maria T PETERSONRAMBO: [id number] [id number] [place] [address] 03/15/2025 Primary [facility]anc e:[facility] Number: [id number] luis Date:[id number] Name:Maria T SANDOVAL COLIN: [id number] [address]
--- NOTE | 2025-07-26 11:00 | PET_ITS ---
PROCEDURE: PET/CT TUMOR BASE -THIGH INIT 07/26/2025 REASON FOR EXAM: 79 y/o M with LUNG cancer, left upper lobe. TECHNIQUE: Procedure Code: [id number] Modality: PT Procedure: PET/CT TUMOR BASE -THIGH INIT Following the intravenous administration of radionucleotide, image acquisition on a dedicated PET/CT unit was performed at one hour post injection. A preliminary CT study encompassing the Skull base, neck, chest, abdomen, pelvis, and proximal thighs was performed for purposes of attenuation correction and anatomic localization. The proximal thighs were also included. The patient's blood glucose level was 134 mg/dL (allowable range: 50-180 mg/dL). RADIOPHARMACEUTICAL: 13.76 mCi 18F-FDG (Fluorodeoxyglucose F18) IV was injected into he patient. RADIATION DOSE SUMMARY: Effective Dose: Approximately 7 mSv for a standard whole-body PET scan Organ Doses: Varies by organ, with higher doses typically to the bladder, liver, and brain COMPARISON: COMPARISON FROM CT, PET OR OTHER PERTINENT EXAMS: PET/CT of 04/05/2025. FINDINGS: Physiologic uptake: There may be expected metabolic uptake within the brain, tongue and floor of the mouth and larynx/vocal cords, heart, milady (many normal individuals have hilar uptake in less than 3 nodes with mildly avid hilar nodes less than 2.7 SUV), liver and spleen, system, and GI tract and symmetric muscle uptake. FDG AVID AND NON-AVID LESIONS. Reported avid SUV values (g/mL*) are maximum SUV. NECK: There are no significant neck abnormalities. CHEST: Chest wall- There are no significant chest wall abnormalities. Axilla- There are no significant axillary abnormalities. Lung parenchyma- Left upper lobe nodule again seen, with hypermetabolic activity and SUV max of 7.3. This is consistent with the known malignancy. Right upper lobe area of discoid atelectasis and/or scarring noted. Mediastinum- There are no significant hilar or mediastinal adenopathy. Pleura- There are no significant pleural abnormalities. Prominent coronary artery calcification is noted. ABDOMEN: Stomach- No significant abnormalities. Liver- No significant abnormalities. Spleen- No significant abnormalities. Pancrease- No significant abnormalities. Kidneys- Multiple hyperdense bilateral renal nodules are seen. Recommend further evaluation with ultrasound, if not recently performed. Bowel- Normal bowel activity. Spine- No significant abnormalities. [id number] aortic calcification; no evidence of abdominal aortic aneurysm. PELVIS: Moderate sigmoid and mild descending colon diverticulosis. Prostatomegaly. Bowel- Normal physiologic bowel activity is identified. Masses- There are no pelvic masses. Bones- Prominent degenerative changes are seen throughout the spine. With the use of bone window settings, there are no osteolytic or osteoblastic lesions. There are no FDG avid lesions within the visualized portion of the axial skeleton. PET/PET/CT Tumor Base -Thigh Init IMPRESSION: FDG avid- Hypermetabolic left upper lobe nodule, consistent with the known malignancy. N o additional hypermetabolic focus is seen, at this time. Other: 1. Multiple bilateral renal nodules, not clearly benign based on noncontrasted CT appearance. Recommend sonographic evaluation, if not recently performed. 2. Prominent coronary artery calcification. 3. Moderate sigmoid and mild descending colon diverticulosis. 4. Prostatomegaly. 5. [id number] aortic calcification; no evidence of abdominal aortic aneur ysm. 6. Prominent degenerative changes of the spine. Please note the low-dose CT scan was performed to facilitate PET image reconstr uction and anatomic localization and does not replace a diagnostic CT. Any diagnostic CT requested and performed at the time of the PET will be reported separately. Reading Location: [id number]
== END | disposition home or self-care (01) ==
LOC: ONC 10:02
DX: C34.12 Malignant neoplasm of upper lobe, left bronchus or lung (principal)
CPT/HCPCS: 78815; A9552

== ENCOUNTER → 2025-09-01 | Outpatient (CLI) | payer OTHER, SELFPAY ==
--- NOTE | 2025-09-01 10:19 | NM_ITS ---
PROCEDURE: RENAL SCAN W/ PHARM INTERVENT 09/01/2025 REASON FOR EXAM: HYDRONEPHROSIS. Stage IV renal failure. TECHNIQUE: Procedure Code: NMRSR Modality: CA Procedure: RENAL SCAN W/ PHARM INTERVENT, also with furosemide administration. Technetium-99m DTPA intravenously with planar imaging of the abdomen. Immediate bloodflow and delayed renogram images with computer-reconstructed renogram curves. 20 mg Lasix intravenously 20 minutes after the radiopharmaceutical. RADIOPHARMACEUTICAL: Intravenous administration 11 mCi technetium 99 M Mag 3. Intravenous administration of 20 mg furosemide. COMPARISON: PET-CT of 07/26/2025. FINDINGS: Perfusion: Prompt and symmetric renal blood flow is seen. Relatively prompt right renal cortical blood flow is seen, with delayed and persistent left renal cortical activity noted, concerning for left-sided partial obstruction. Differential function: 49.76 % on the left and 50.24 % on the right. Cortical time to peak: 14.55 minutes on the left and 4.05 minutes on the right. Diuretic cortical T-1/2: 31.69 minutes on the left and 41.08 minutes on the right. Following intravenous Lasix administration,, however, and given the limitations of high-grade renal insufficiency, there appears to be relative paucity of collecting system clearance on the left, compared with the right. This is also suspicious for partial obstruction of the left.
--- OUTSIDE RECORDS SUMMARY | 2025-09-01 12:19 | XMS RPT_ITS | CCD ---
Author Organization [facility] Care Team Providers Care Bus Matron Name Role Phone Yolis Musa PA-C Primary Care Provider PROVIDER, UNKNOWN Referring Unavailable Yolis Musa Primary Care Unavailable Heri Camarillo Attending Unavailable Heri Camarillo Attending Unavailable PROVIDER, UNKNOWN Referring Unavailable Yolis Musa Primary Care Unavailable KARI RAYMUNDO Attending Unavailable PACO GELLER Attending Unavailable HERI CAMARILLO Admitting Unavailable HERI CAMARILLO Attending Unavailable HERI CAMARILLO Attending Unavailable Yolis Musa Primary Care Provider Unavai Sintia Gonzalez DO Unavailable Franc Zambrano MD Unavailable Heri Camarillo MD Unavailable [place] Primary Care Provider Unavailabl Dr. Rowdy Hernandez DO Attending Provider Dr. Rowdy Shearer DO Emergency Provider Dr. Greg Ruiz MD Emergency Provider Dr. Greg Ruiz MD Attending Provider KEISHA SENIOR MILITARY ANALYST-C, JANUARY Attending Provider KEISHA SENIOR MILITARY ANALYST-C, JANUARY Referring Provider [phone] Dr. Clayton Croft DO Emergency Provider [place] Primary Care Provider Unavailabl Dr. Clayton Sharp DO Attending Provider Musat SENIOR MILITARY ANALYST-C, Chikis Attending Provider Musat SENIOR MILITARY ANALYST-C, Chikis Referring Provider [phone] MIREYA SOLIS Attending Provider [phone] [id number] MIREYA SOLIS Referring Provider [phone] [id number] MIREYA SOLIS Attending Provider [phone] [id number] MIREYA SOLIS Referring Provider [phone] [id number] Mary PETIT, Bart Santamaria Unavailable [facility] Primary Care Provider [phone] ALEC TNIAJERO [facility]ending [facility] ALEC TINAJERO Attending Unavailabl e Dr. William Seals DO Emergency Provider Dr. William Seals DO Attending Provider Provider, Ed Physician Emergency Provider [place] Primary Care Provider [facility] Provider, Ed Physician Attending Provider [facility] MIREYA SOLIS Attending Provider [phone] MIREYA SOLIS Referring Provider Oscar Valencia MD Emergency Provider Oscar Valencia MD Attending Provider Dr. Jacky Norman MD Emergency Provider Unavailable Primary Care [place] Primary Care Physician Dr. William Randolph DO Attending Physician Dr. William Seals DO Emergency Department Physi lester Provider, Ed Physician Attending Physician [facility] Provider, Ed Physician Emergency Department Phys ician Unavailable MIREYA SOLIS Attending Physician [phone] Oscar Valencia MD Attending Physician Oscar Valencia MD Emergency Department Physician Dr. Jacky Norman MD Attending Physician Dr. Jacky Norman MD Emergency Department Physici an MIREYA HA Attending Physician MIREYA HA Referring Provider [phone] [place] Primary Care Physician UnavailRebecca Sales Attending Physician Unavailable Dr. Adolfo Tubbs DO Attending Physician CAMPBELL AYALA Referring Provider [phone] Dr. Adolfo Tubbs DO Referring Provider [facility] Unavailable Rowdy Shearer Attending [facility] Unavailable Rebecca Adams Attending Unavailable Adolfo Tubbs Attending [facility] Unavailable Adolfo Tubbs Attending [facility] Unavailable DELONG, MARYAN Referring Unavailable [facility] Referring [facility] Unavailable Jerica Lopez Attending [facility] Unavailable KEISHA, JANUARY Referring Unavailable KEISHA, PALLAVI Attending [facility] Unavailable Adolfo Tubbs Referring Unavailable Adolfo Tubbs Attending [facility] Unavailable DELONG, MARYAN Referring Unavailable DELONG, MARYAN Attending Unavailable KEISHA, JANUARY Attending [facility] Unavailable KEISHA, JANUARY Referring Unavailable Musat, Chikis Referring Unavailable Musat, Chikis Attending [facility] Unavailable DELONG, MARYAN Referring Unavailable DELONG, MARYAN Attending [facility] Unavailable DELONG, MARYAN Referring Unavailable DELONG, MARYAN Attending [facility] Unavailable Greg Ruiz Attending [facility] Unavailable Greg Ruiz Attending [facility] Unavailable Clayton Croft Attending [facility] Unavailable William Seals Attending [facility] Unavailable Oscar Valencia Attending [facility] Unavailable Jacky Norman Attending Unavailable SulyAdlofo clarke Attending [facility] Unavailable William Seals Attending [facility] Unavailable Provider, Ed Physician [facility] William Seals Attending Unavailable Franki Medina Attending [facility] Unavailable Allergies Allergy Classification Reported Allergen(s) Allergy Type Date of Onset Reaction(s) Facility (20 sources) Amoxicillin Drug Allergy 2 [facility] (20 sources) Clavulanate Drug Allergy 2 [facility] (20 sources) Lisinopril; Translations: [LISINOPRIL] Drug Allergy 2 [facility] Work Phone: (9 sources) buPROPion Drug Allergy 2 unknown [facility] Work Phone: (5 sources) Insulin Glargine; Translations: [INSULIN GLARGINE] Drug Allergy 2 Rash [facility] Work Phone: (7 sources) Amoxicillin-Pot Clavulanate Propensity to adverse reactions to drug 2 Headaches, Rash, Headache [facility] (6 sources) Insulin Glargine Drug Allergy 2 Rash [facility] (6 sources) Lisinopril Propensity to adverse reactions 2 Cough [facility] (2 sources) Silicones Drug Allergy 5 PT UNSURE OF REACTION [facility] Comment on above: reaction to silicone in catheter (1 source) Amoxicillin Drug Allergy 5 [facility] Repository (1 source) buPROPion Drug Allergy 5 [facility] Repository (1 source) Clavulanate Drug Allergy 5 [facility] Repository (1 source) Insulin Glargine Drug Allergy 5 [facility] Repository (1 source) Lisinopril Drug Allergy 5 [facility] Repository (1 source) silicone Drug allergy (disorder) 5 [facility] Repository Medications Current Medications Medication Drug Class(es) Dates Sig (Normalized) Sig (Original) [id number] 200 actuat albuterol 0.09 mg/actuat metered dose inhaler (1 source) beta2-Adrenergic Agonist Start: 10-07-2024 albuterol HFA (PROVENTIL HFA, VENTOLIN HFA) 90 mcg/actuation inhaler Inhale as instructed. 10/07/2024 Active amLODIPine 10 mg oral tablet (20 sources) Dihydropyridine Calcium Channel Clifford Start: 07-10-2024 take 1 tablet by mouth once daily AMLODIPINE BESYL ATE PO Take by mouth. 0 Active atorvastatin 40 mg oral tablet (18 sources) HMG-CoA Reductase Inhibitor Start: 04-06-2024 take 1 tablet by mouth at bedtime ferrous gluconate 324 mg oral tablet (20 sources) Start: 01-25-2025 take 1 tablet by mouth at bedtime Start: 07-10-2024 End: 09-03-2024 take 1 tablet by mouth once daily Ferrous Gluconate 324 mg (38 mg iron) tablet Discontinued 324 mg PO DAILY July 10, 2024 12:00am September 03, 2024 2:29pm supplement finasteride 5 mg oral tablet (19 sources) 5-alpha Reductase Inhibitor Start: 07-13-2024 take 1 tablet by mouth once daily take 1 tablet by mouth in the mo rning finasteride (PROSCAR) 5 MG tablet Take 5 mg by mouth in the morning. 0 Active glipiZIDE 10 mg oral tablet (20 sources) Sulfonylurea Start: 07-10-2024 take 5 mg by mouth o nce daily Start: 07-10-2024 take 1 tablet by mouth [...] ml insulin glargine 100 unt/ml pen injector (19 sources) Insulin Analog Start: 2024 Start: 07-10-2024 End: 07-27-2025 Insulin Glargine 100 unit/mL (3 mL) insulin pen Discontinued 10 U SC AT BEDTIME July 10, 2024 12:00am July 27, 2025 2:59pm diabetes Start: 07-10-2024 Insulin Glargi ne 100 [...] Indications: insulin, substitute for Lantus. 0 Active SITagliptin 25 mg oral tablet (17 sources) Dipeptidyl Peptidase 4 Inhibitor Start: 07-10-20 24 take 1 tablet by mouth once daily tamsulosin hydrochloride 0.4 mg oral capsule (20 sources) alpha-Adrenergic Clifford Start: 07-27-20 25 take 1 capsule by mouth once daily Start: 07-13-2024 End: 01-25-2025 take 1 capsule by mouth twice daily Tamsulosin 0.4 mg Capsule Discontinued 0.4 mg PO TWICE A DAY 60 2 July 13, 2024 12:00am January 25, 2025 12:38pm 24 hr tolterodine tartrate 2 mg extended [...] Sig (Original) aspirin 81 mg chewable tablet (19 sources) Platelet Aggregation Inhibitor, Nonsteroidal Anti-inflammatory Drug Start: 07-10-2024 End: 07-27-2025 take 1 tablet by mouth once daily Aspirin 81 mg tablet,chewable Discontinued 81 mg PO DAILY July 10, 2024 12:00am July 27, 2025 2:56pm blood thinner Start: 09-09-2017 take 1 tablet by micheal th once daily aspirin, enteric coated (ASPIRIN, ENTERIC COATED) 81 mg EC tablet Take 81 mg by mouth once daily. 09/09/2017 Active take 1 tablet by micheal th once daily aspirin 81 MG chewable tablet Take 81 mg by mouth daily 0 Active cefdinir 300 mg oral capsule (17 sources) Cephalosporin Antibacterial Start: 07-13-2024 End: 01-25-2025 [...] as Lantus 0 08/15/2022 Discontinued (LIST CLEANUP) levoFLOXacin 750 mg oral tablet (15 sources) Quinolone Antimicrobial Start: 05-11-2025 End: 07-27-2025 take 1 tablet by mouth once daily Levofloxacin 750 mg tablet Discontinued 750 mg PO DAILY 6 6 0 June 24, 2025 12:00am July 27, 2025 2:59pm 24 hr mirabegron 25 mg extended release oral tablet (5 sources) beta3-Adrenergic Agonist Start: 11-04-2022 End: 11-04-2022 take 1 tablet by mouth once daily mirabegron ER (Myrbetriq) 25 MG 24 hr tablet Indications: Overactive Bladder Take 1 tablet (25 mg) by mouth Nightly. Do not crush, chew, or split. 90 tablet 3 11/04/2022 11/04/2022 Discontinued (Cost of medication) pregabalin 75 mg oral capsule (20 sources) Start: 07-27-2025 End: 08-08-2025 take 1 capsule by mouth once daily Pregabalin 75 mg capsule Discontinued 75 mg PO daily July 27, 2025 12:00am August 08, 2025 2:39pm Start: 07-10-2024 take 1 capsule by mouth twice daily Problems Active Problems Problem Classification Problem Date Documented Da te Episodic/Chronic Cancer of bronchus; lung (14 sources) Malignant tumor of lung; Translations: [Malignant neoplasm of unspecified part of unspecified bronchus or lung] Onset: 06-09-2022 06-09-2022 Chronic Cancer of bronchus; lung (2 sources) Personal history of other malignant neoplasm of bronchus and lung; Translations: [Personal history of malignant neoplasm of bronchus and lung] Onset: 08-15-2022 Episodic Cardiac dysrhythmias (7 sources) Atrial fibrillation; Translations: [Unspecified atrial fibrillation] Onset: 06-09-2022 06-09-2022 Chronic Chronic kidney disease (2 sources) Chronic kidney disease stage 4; Translations: [Chronic kidney disease, stage 4 (severe)] 07-15-2025 Chronic Complication of device; implant or graft (20 sources) Disorder of urethral catheter; Translations: [Breakdown (mechanical) of indwelling urethral catheter, initial encounter] Onset: 12-07-2024 01-14-2025 Episodic Diabetes mellitus without complication (20 sources) Diabetes mellitus; Translations: [Type 2 diabetes mellitus without complications] Onset: 06-09-2022 06-09-2022 Chronic Diseases of white blood cells (17 sources) Leukocytosis; Translations: [Elevated white blood cell count, unspecified] 07-21-2024 Chronic Disorders of lipid metabolism (8 sources) Hypercholesterolemi a; Translations: [Pure hypercholesterolemi a, unspecified] 05-08-2025 Chronic Essential hypertension (20 sources) Hypertensive disorder; Translations: [Essential (primary) hypertension] Onset: 06-09-2022 06-09-2022 Chronic Fluid and electrolyte disorders (17 sources) Lactic acidosis; Translations: [Acute lactic acidosis] 07-21-2024 Episodic Hyperplasia of prostate (20 sources) Benign prostatic hypertrophy with outflow obstruction; Translations: [Benign prostatic hyperplasia with lower urinary tract symptoms] Onset: 06-10-2022 06-10-2022 Chronic Malaise and fatigue (17 sources) Asthenia; Translations: [Weakness] 07-21-2024 Episodic Other aftercare (2 sources) 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 (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; Translations: [MCFP (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] Onset: 08-15-2022 Episodic Other circulatory disease (2 sources) Personal history of other diseases of the circulatory system; Translations: [Personal history of other diseases of the circulatory system] Onset: 08-15-2022 Episodic Other diseases of kidney and ureters (19 sources) Unspecified hydronephrosis; Translations: [Hydronephrosis due to obstruction of bladder] Onset: 01-25-2025 09-11-2024 Episodic Other diseases of kidney and ureters (2 sources) Acquired renal cystic disease; Translations: [Cyst of kidney, acquired] Onset: 03-15-2025 04-22-2025 Episodic Other diseases of kidney and ureters (1 source) Hydroureter; Translations: [Hydroureter] Onset: 03-15-2025 03-15-2025 Episodic Other male genital disorders (4 sources) H/O: male genital disorder; Translations: [Personal history of other diseases of male genital organs] 06-23-2025 Episodic Residual codes; unclassified (2 sources) Obstructive sleep apnea (adult) (pediatric); Translations: [Obstructive sleep apnea (adult) (pediatric)] Onset: 08-15-2022 Chronic Residual codes; unclassified (2 sources) Dependence on other enabling machines and devices; Translations: [Dependence on other enabling machines and devices] Onset: 08-15-2022 Chronic Residual codes; unclassified (20 sources) Urinary catheter in situ; Translations: [Presence of other specified devices] 09-11-2024 Episodic Substance-related disorders (2 sources) Nicotine dependence, unspecified, uncomplicated; Translations: [Nicotine dependence, unspecified, uncomplicated] Onset: 08-15-2022 Chronic Unclassified (1 source) Other pericardial effusion (noninflammatory); Translations: [Other pericardial effusion (noninflammatory)] Onset: 08-15-2022 Unclassified (2 sources) N40.1 // N13.8 Onset: 08-22-2022 Unclassified (9 sources) with your urologist Unclassified (12 sources) for local urology evaluation Urinary tract infections (20 sources) Urinary tract infectious disease; Translations: [Urinary tract infection, site not specified] 07-21-2024 Episodic Past or Other Problems Problem Classification Problem Date Documented Date Episodic/Chronic Acute and unspecified renal failure (20 sources) Acute renal failure syndrome; Translations: [Acute kidney failure, unspecified] Onset: 01-31-2025 07-21-2024 Episodic Acute bronchitis (1 source) Acute bronchitis, unspecified; Translations: [Acute bronchitis, unspecified] Onset: 03-29-2025 Episodic Genitourinary symptoms and ill-defined conditions (20 sources) Increased frequency of urination; Translations: [Frequency of micturition] Onset: 06-10-2022 06-10-2022 Episodic Other diseases of kidney and ureters (1 source) Hydronephrosis with renal and ureteral calculous obstruction; Translations: [Hydronephrosis with renal and ureteral calculous obstruction] Onset: 09-28-2024 Episodic Other screening for suspected conditions (not mental disorders or infectious disease) (7 sources) Raised prostate specific antigen; Translations: [Elevated prostate specific antigen [PSA]] Onset: 06-10-2022 06-10-2022 Episodic [place]-; endo-; and myocarditis; cardiomyopathy (except that caused by tuberculosis or sexually transmitted disease) (7 sources) Pericardial effusion; Translations: [Pericardial effusion] Onset: 06-09-2022 06-09-2022 Episodic Unclassified (1 source) Other pericardial effusion (noninflammatory); Translations: [Other pericardial effusion (noninflammatory)] Onset: 08-15-2022 Results Test Name Value Interpretation Reference Range Facility Radiation Oncology Visiton 1 Radiation Oncology Visit [facility] Sriram Guevara [place], [place] [id number] OFFICE VISIT Date of Service: 08/08/25 143 MR#: [id number] Acct: [id number] Name: LORI LYNCH Rep #: [id number] : 1945 From: Adolfo Suly DO Age/Sex: 80/M Location: [facility] [place] Status: Signed Intake Vital Signs 06/24/25 10:54 08/08/25 14:42 Height 5 ft 8 in 5 ft 8 in Weight: 217 lb BMI 33.0 BP 134/68 H Blood Pressure Location Rt brachial Position Sitting Respiration 18 Pulse 68 Pulse Source Monitor Temp 99.0 F Temperature Source Temporal Artery Pulse Oximetry (%) 98 Oxygen Delivery Method room air Intake Is patient in pain?: No Allergies bupropion Allergy (Unknown, Verified 08/08/25 14:38) unknown insulin glargine (From Lantus U-100 Insulin) Allergy (Unknown, Verified 08/08/25 14:38) unknown amoxicillin (From Augmentin) Allergy (Verified 08/08/25 14:38) Hives clavulanic acid (From Augmentin) Allergy (Verified 08/08/25 14:38) Hives lisinopril Allergy (Verified 08/08/25 14:38) Other silicone Adverse Reaction (Mild, Verified 08/08/25 14:38) PT UNSURE OF REACTION Medications ???Medication ???Instructions ???Recorded ???Confirmed ???Type amlodipine 10 mg tablet 10 mg PO DAILY BP 07/10/24 5 History atorvastatin 40 mg tablet 40 mg PO QHS cholesterol 07/10/24 08/08/25 History glipizide 10 mg tablet 5 mg PO DAILY diabetes 07/10/24 History pregabalin 75 mg capsule (Lyrica) 75 mg PO BID pain 07/10/24 History sitagliptin 25 mg tablet 25 mg PO DAILY diabetes 07/10/24 1 History finasteride 5 mg tablet 5 mg PO DAILY #30 tabs 07/13/24 Rx ferrous gluconate 324 mg (38 mg 324 mg PO QHS 01/25/25 08/08/25 Hi story iron) tablet insulin glargine 100 unit/mL (3 16 unit subcut QHS diabetes 08/08/25 History mL) subcutaneous pen tamsulosin 0.4 mg capsule (Flomax) 0.4 mg PO QDAY 07/27/25 08/08/25 History Have you fallen in the past year?: Yes PFSH PFSH Medical History (Updated 08/08/25 @ 15:[address] 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 UTI (urinary tract infection) Leukocytosis Acute kidney injury Acute lactic acidosis Generalized weakness Diabetes High cholesterol HTN (hypertension) Smoker Prostate enlargement Lung cancer Home Medications ???Medication ???Instructions ???Recorded ???Last Taken ???Type amlodipine 10 mg tablet 10 mg PO DAILY BP 07/10/24 5 History atorvastatin 40 mg tablet 40 mg PO QHS cholesterol 07/10/24 01/24/25 History glipizide 10 mg tablet 5 mg PO DAILY diabetes 07/10/24 History pregabalin 75 mg capsule (Lyrica) 75 mg PO BID pain 07/10/24 History sitagliptin 25 mg tablet 25 mg PO DAILY diabetes 07/10/24 0 01/25/25 History finasteride 5 mg tablet 5 mg PO DAILY #30 tabs 07/13/24 Rx ferrous gluconate 324 mg (38 mg 324 mg PO QHS 01/25/25 01/24/25 Hi story iron) tablet insulin glargine 100 unit/mL (3 16 unit subcut QHS diabetes Unknown History mL) subcutaneous pen tamsulosin 0.4 mg capsule (Flomax) 0.4 mg PO QDAY 07/27/25 Unknown History Allergy/AdvReac Type Severity Reaction Status Date / Time bupropion Allergy Unknown unknown Verified 08/08/25 14:38 insulin glargine (From Allergy Unknown unknown Verified 08/08/25 14:38 Lantus U-100 Insulin) amoxicillin (From Augmentin) Allergy Hives Verified 08/08/25 14:38 clavulanic acid (From Allergy Hives Verified 08/08/25 14:38 Augmentin) lisinopril Allergy Other Verified 08/08/25 14:38 silicone AdvReac Mild PT UNSURE Verified 08/08/25 14:38 OF REACTION Family History (Updated 07/27/25 @ 14:53 by Rebecca Adams) Brother Cancer Other Diabetes Surgical History (Updated 08/08/25 @ 14:41 by Shanna Doherty) H/O shoulder replacement Social History (Updated 07/27/25 @ 14:52 by Rebecca Adams) Smoking Status: Current every day smoker tobacco type: cigarettes Tobacco: How many years used: 60 alcohol intake: never substance use type: does not use Referring Provider: [place] Diagnosis: Lori Lynch is an 80-year-old male with a history significant for renal cell carcinoma of the right kidney status post microwave ablation (2015) and 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 History of Present Illness: 03/15/2016: Patient was diagnosed with renal cell carcinoma of the rig (more content not included)... Normal [facility] Positron emission tomography scan reportOrdered By: Jemal Green on 07-27-2025 PT Unspecified body region [facility] Imaging Services [address] [place] [id number] PET/CT Tumor Base -Thigh Init MR#: [id number] Acct: [id number] Name: LORI LYNCH Rep #: [id number] : 1945 M 79 From: [place] Green MD PCP: [place] Hospital Status: REG CLI Study:PET/CT Tumor Base -Thigh Init Date of E xam: 07/26/25 Exam# [id number] Ordering Dr: Carlito taylor,Out o. PROCEDURE: PET/CT TUMOR BASE -THIGH INIT 07/26/2025 REASON FOR EXAM: 79 y/o M with LUNG cancer, left upper lobe. TECHNIQUE: Procedure Code: PETPTCTINIT Modality: PT Procedure: PET/CT TUMOR BASE -THIGH INIT Following the intravenous administration of radionucleotide, image acquisition on a dedicated PET/CT unit was performed at one hour post injection. A preliminary CT study encompassing the Skull base, neck, chest, abdomen, pelvis, and proximal thighs was performed for purposes of attenuation correction and anatomic localization. The proximal thighs were also included. The patient's blood glucose level was 134 mg/dL (allowable range: 50-180 mg/dL). RADIOPHARMACEUTICAL: 13.76 mCi 18F-FDG (Fluorodeoxyglucose F18) IV was injected into he patient. RADIATION DOSE SUMMARY: Effective Dose: Approximately 7 mSv for a standard whole-body PET scan Organ Doses: Varies by organ, with higher doses typically to the bladder, liver,and brain COMPARISON: COMPARISON FROM CT, PET OR OTHER PERTINENT EXAMS: PET/CT of 04/05/2025. FINDINGS: Physiologic uptake: There may be expected [...] are no significant axillary abnormalities. Lung parenchyma- Left upper lobe nodule again seen, with hypermetabolic activity and SUV max of 7.3. This is consistent with the known malignancy. Right upper lobe area of discoid atelectasis and/or scarring noted. Mediastinum- There are no significant hilar or mediastinal adenopathy. Pleura- There are no significant pleural abnormalities. Prominent coronary artery calcification is noted. ABDOMEN: Stomach- No significant abnormalities. Liver- No significant abnormalities. Spleen- No significant abnormalities. Pancrease- No significant abnormalities. Kidneys- Multiple hyperdense bilateral renal nodules are seen. Recommend further evaluation with ultrasound, if not recently performed. Bowel- Normal bowel activity. Spine- No significant abnormalities. [id number] aortic calcification; no evidence of abdominal aortic aneurysm. PELVIS: Moderate sigmoid and mild descending colon diverticulosis. Prostatomegaly. Bowel- Normal physiologic bowel activity is identified. Masses- There are no pelvic masses. Bones- Prominent degenerative changes are seen throughout the spine. With the use of bone window settings, there are no osteolytic or osteoblastic lesions. There are no FDG avid lesions within the visualized portion of the axial skeleton. PET/PET/CT Tumor Base -Thigh Init IMPRESSION: FDG avid- Hypermetabolic left upper lobe nodule, consistent with the known malignancy. Noadditional hypermetabolic focus is seen, at this time. Other: 1. Multiple bilateral renal nodules, not clearly benign based on noncontrasted CT appearance. Recommend sonographic evaluation, if not recently performed. 2. Prominent coronary artery calcification. 3. Moderate sigmoid and mild descending colon diverticulosis. 4. Prostatomegaly. 5. [id number] aortic calcification; no evidence of abdominal aortic aneurysm. 6. Prominent degenerative changes of the spine. Please note the low-dose CT scan was performed to facilitate PET image reconstruction and anatomic localization and does not replace a diagnostic CT. Any diagnostic CT requested and performed at the time of the PET will be reported separately. Reading Location: [address] CC: MIREYA HA; [facility] ~ Real Estate Intern: Signed [facility] PET/CT Tumor Base -Thigh Ini ton 07-26-2025 PET/CT Tumor Base -Thigh Init [facility] Imaging Services [address] [place] [id number] PET/CT Tumor Base -Thigh Init MR#: [id number] Acct: [id number] Name: LORI LYNCH Rep #: [id number] : 1945 M 79 From: Jemal Cueva PCP: [facility] Status: REG CLI Study: PET/CT Tumor Base -Thigh Init Date of Exam: Exam# [id number] Ordering Dr: Carlito Harrell,Devyn o. PROCEDURE: PET/CT TUMOR BASE -THIGH INIT 07/26/2025 REASON FOR EXAM: 79 y/o M with LUNG cancer, left upper lobe. TECHNIQUE: Procedure Code: PETPTCTINIT Modality: PT Procedure: PET/CT TUMOR BASE -THIGH INIT Following the intravenous administration of radionucleotide, image acquisition on a dedicated PET/CT unit was performed at one hour post injection. A preliminary CT study encompassing the Skull base, neck, chest, abdomen, pelvis, and proximal thighs was performed for purposes of attenuation correction and anatomic localization. The proximal thighs were also included. The patient's blood glucose level was 134 mg/dL (allowable range: 50-180 mg/dL). RADIOPHARMACEUTICAL: 13.76 mCi 18F-FDG (Fluorodeoxyglucose F18) IV was injected into he patient. RADIATION DOSE SUMMARY: Effective Dose: Approximately 7 mSv for a standard whole-body PET scan Organ Doses: Varies by organ, with higher doses typically to the bladder, liver, and brain COMPARISON: COMPARISON FROM CT, PET OR OTHER PERTINENT EXAMS: PET/CT of 04/05/2025. FINDINGS: Physiologic uptake: There may be expected [...] are no significant axillary abnormalities. Lung parenchyma- Left upper lobe nodule again seen, with hypermetabolic activity and SUV max of 7.3. This is consistent with the known malignancy. Right upper lobe area of discoid atelectasis and/or scarring noted. Mediastinum- There are no significant hilar or mediastinal adenopathy. Pleura- There are no significant pleural abnormalities. Prominent coronary artery calcification is noted. ABDOMEN: Stomach- No significant abnormalities. Liver- No significant abnormalities. Spleen- No significant abnormalities. Pancrease- No significant abnormalities. Kidneys- Multiple hyperdense bilateral renal nodules are seen. Recommend further evaluation with ultrasound, if not recently performed. Bowel- Normal bowel activity. Spine- No significant abnormalities. Oant-zy-vetzhzmy aortic calcification; no evidence of abdominal aortic aneurysm. PELVIS: Moderate sigmoid and mild descending colon diverticulosis. Prostatomegaly. Bowel- Normal physiologic bowel activity is identified. Masses- There are no pelvic masses. Bones- Prominent degenerative changes are seen throughout the spine. With the use of bone window settings, there are no osteolytic or osteoblastic lesions. There are no FDG avid lesions within the visualized portion of the axial skeleton. PET/PET/CT Tumor Base -Thigh Init IMPRESSION: FDG avid- Hypermetabolic left upper lobe nodule, consistent with the known malignancy. No additional hypermetabolic focus is seen, at this time. Other: 1. Multiple bilateral renal nodules, not clearly benign based on noncontrasted CT appearance. Recommend sonographic evaluation, if not recently performed. 2. Prominent coronary artery calcification. 3. Moderate sigmoid and mild descending colon diverticulosis. 4. Prostatomegaly. 5. Deja-zk-jghasgno aortic calcification; no evidence of abdominal aortic aneurysm. 6. Prominent degenerative changes of the spine. Please note the low-dose CT scan was performed to facilitate PET image reconstruction and anatomic localization and does not replace a diagnostic CT. Any diagnostic CT requested and performed at the time of the PET will be reported separately. Reading Location: [address] CC: MIREYA HA; [facility] Real Estate Intern: Signed Normal [facility] Urine Cultureon 06-25-2025 URC Culture exhibits no growth. Normal [facility] Comment on above: Performed By: #### L 400.0001, M100.2200 #### [facility] Laboratory [address] [place], [address] Bilirubin Test strip Ql (U)O rdered By: William Seals on 06-24-2025 Bilirubin Ql (U) Negative Negative [facility] Emergency Department Summary on 06-24-2025 Emergency Department Summary [facility] Medical Records Department [address] [place] [address] Emergency Department Summary 06/24/25 MR#: [id number] Acct: [id number] Name: LORI LYNCH Rep #: [id number] : 1945 79 From: Chikis ROBERTSON PCP: [facility] Status:DEP ER Location: ED HPI History of Present Illness Chief Complaint: Diego C/O Narrative Narrative: 79-year-old male has BPH with a chronic indwelling Diego catheter changed [facility] at [facility]. It was changed at the [facility] yesterday and he presented last night to our emergency room because it was not draining. The nurse irrigated sediment and it is draining now but he developed leaking around where the Diego exits his penis. He states has had this problem in the last several times the [facility] has changed it because they use a coud??? and then he has had to come here to get a straight catheter which resolved the issue. He denies fever chills nausea vomiting abdominal or flank pain or any other issues. [facility] Medical History BPH with obstruction/lower urinary tract [...] DAILY #7 tabs 05/26/25 U nknown Rx levofloxacin 750 mg tablet 750 mg PO DAILY 6 days #6 tabs Unknown Rx Allergy/AdvReac Type Severity Reaction Status Date / Time amoxicillin (From Augmentin) Allergy Hives Verified 06/24/25 10:55 clavulanic acid (From Allergy Hives Verified 06/24/25 10:55 Augmentin) lisinopril Allergy Other Verified 06/24/25 10:55 Family History Other Diabetes Surgical History H/O shoulder replacement Social History Smoking Status: Current every day smoker tobacco type: cigarettes ROS ROS ED ROS Narrative Constitutional: Negative [...] nontender, no guarding or rebound, nondistended. : Leg bag with clear yellow urine. SKIN: Color normal, no rash, warm, dry, intact. EXTREMITIES: Normal appearance, no pedal edema. NEURO: Alert and answering questions appropriately. PSYCH: Normal affect. Const Vital Signs: 06/24/25 10:54 06/24/25 12:35 Temperature 97 F L 98.0 F Temperature Source Temporal Pulse Rate 95 87 Respiratory Rate 14 16 Blood Pressure 146/88 H 149/81 H Blood Pressure Mean 107 103 Pulse Ox 98 99 Oxygen Delivery Method Room Air Physical Exam Const Vital Signs: 06/24/25 10:54 06/24/25 12:35 Temperature 97 F L 98.0 F Temperature Source Temporal Pulse Rate 95 87 Respiratory Rate 14 16 Blood Pressure 146/88 H 149/81 H Blood Pressure Mean 107 103 Pulse Ox 98 99 Oxygen Delivery Method Room Air MDM MDM MDM Narrative Medical decision making narrative: Diego catheter was exchanged and is no longer leaking. Urinalysis has 500 leukocyte esterase, over 100 red and white blood cells, but is nitrite and bacteria negative. It was sent for culture. Most recent culture was negative for growth however he has had multiple other infections in the past responsive to Levaquin so I prescribed this. First dose given in ED. He should follow-up with his [facility] urology team or return if issues arise. He was dis (more content not included)... Normal [facility] Ketones Test strip Ql (U)Ord ered By: William Seals on 06-24-2025 Ketones Ql (U) Negative Negative [facility] Microscopic analysis of urin e for red blood cells (RBC)Ordered By: William Seals on 06-24-2025 Microscopic analysis of urine for red blood cells (RBC) > 100 SEEN /hpf 0-5 [facility] Mucus LM Ql (Urine sed)Order ed By: William Seals on 06-24-2025 Mucus Ql (Urine sed) 0 SEEN /hpf [facility] Nitrite Test strip Ql (U)Ord ered By: William Seals on 06-24-2025 Nitrite Ql (U) Negative Negative [facility] Protein Test strip Ql (U)Ord ered By: William Seals on 06-24-2025 Protein Ql (U) 100 mg/dl High Negative [facility] Squamous epithelial cells de tection in urine sediment by light microscopyOrdered By: William Seals on 06-24-2025 Epithelial cells.squamous LM Ql (Urine sed) 0 SEEN /hpf 0- [facility] Urinalysis, Completeon 06-24 RBC > 100 SEEN Normal 0-5 [facility] Comment on above: Order Comment: HUI TER SPECIMEN Performed By: #### L 400.0001, #### [facility] Laboratory [address] [place], [address] WBC >100 SEEN Normal 0-5 [facility] Comment on above: Order Comment: HUI TER SPECIMEN Performed By: #### L 400.0001, #### [facility] Laboratory [address] [place], [address] BACTERIA 0 SEEN Normal None Seen [facility] Comment on above: Order Comment: HUI TER SPECIMEN Performed By: #### L 400.0001, #### [facility] Laboratory [address] [place], [address] EPI,SQUAMOUS 0 SEEN Normal 0-5 [facility] Comment on above: Order Comment: UHI TER SPECIMEN Performed By: #### L 400.0001, M100.2200 #### [facility] Laboratory [address] [place], [address] Mucus Ql (Urine sed) 0 SEEN Normal [facility] Comment on above: Order Comment: HUI TER SPECIMEN Performed By: #### L 400.0001, M100.0 #### [facility] [address] [place], [address] Urine clarityOrdered By: Divina Seals on 06-24-2025 Clarity (U) Cloudy Clear [facility] Urine color determinationOrd ered By: William Seals on 06-24-2025 Color (U) Yellow Yellow [facility] Urine cultureOrdered By: Divina Seals on 06-24-2025 Bacteria identified Cx Nom (U) Culture exhibits no growth. [facility] Urine glucose detectionOrder ed By: William Seals on 06-24-2025 Glucose Ql (U) 50 mg/dl High Normal [facility] Urine leukocyte esterase det ection by dipstickOrdered By: William Seals on 06-24-2025 Leukocyte esterase Test strip Ql (U) 500 /ul High Negative [facility] Urine pHOrdered By: William alvarez on 06-24-2025 pH (U) 6.5 [pH] 5.0 - 8.0 [facility] Urine sediment bacteria coun t by microscopy (number/high power field)Ordered By: William Seals on 06-24-2025 Bacteria LM.HPF (Urine sed) [#/Area] 0 /[HPF] None Seen [facility] Urine specific gravity measu rementOrdered By: William Seals on 06-24-2025 Specific gravity (U) [Rel density] 1.010 1.002-1.030 [facility] Urine urobilinogen measureme ntOrdered By: William Seals on 06-24-2025 Urobilinogen Ql (U) Normal mg/dl Normal [facility] White blood cell countOrdere d By: William Seals on 06-24-2025 White blood cell count >100 SEEN /hpf 0-5 [facility] Emergency Department Summary on 06-23-2025 Emergency Department Summary [facility] Medical Records Department [address] [place] [address] Emergency Department Summary 06/23/25 MR#: [id number] Acct: [id number] Name: LORI LYNCH Rep #: [id number] : 1945 79 From: Jacky Norman MD PCP: [facility] Status:REG ER Location: ED HPI History of Present Illness Chief Complaint: Diego C/O Informant: patient Pain Onset: Today Narrative Narrative: Diego catheter placed today obstructed. History of BPH. Catheter placed by the [facility] nurse today. Prior similar symptoms: No Recent Illness/Hospitalization: No PFSH PFSH Medical History BPH with obstruction/lower urinary [...] Time amoxicillin (From Augmentin) Allergy Hives Verified 06/23/25 21:53 clavulanic acid (From Allergy Hives Verified 06/23/25 21:53 Augmentin) lisinopril Allergy Other Verified 06/23/25 21:53 Family History Other Diabetes Surgical History H/O shoulder replacement Social History Smoking Status: Current every day smoker tobacco type: cigarettes ROS ROS ED ROS Narrative Denies recent illness. Constitutional Constitutional ED: Denies chills or fever(s) Eyes Eyes: Denies blurry vision or change in vision ENT ENT ED: Denies ear pain Cardiovascular Cardiovascular: Denies chest pain or palpitations Respiratory/Chest Respiratory/Chest: Denies cough, dyspnea or dyspnea on exertion Gastrointestinal Gastrointestinal: Denies abdominal pain Genitourinary Genitourinary ED: Denies dysuria or hematuria Musculoskeletal Musculoskeletal: Denies arthralgias or back pain Integumentary Denies abscess or rash Neurologic Neurologic: Denies headache(s) or paresthesias Psychiatric Psychiatric: Denies anxiety, depression or suicidal ideation Endocrine Endocrinology: Denies polydipsia, polyphagia or polyuria Hematologic/Lymphatic Hematologic/Lymphatic: Denies easy bleeding, easy bruising or lymphadenopathy Allergic/Immunologic Allergic/Immunologic ED: Denies mouth swelling, tongue swelling or urticaria EXAM Physical Exam Narrative Exam Narrative: 79-year-old male sitting upright in bed vital signs stable afebrile. H EENT exam pupils round react light. Moist mucous membranes. Neck nontender. Lungs clear to auscultation. Heart regular rhythm rate about 90 no murmur. Chest wall ribs nontender. Abdomen soft, nontender nondistended normal bowel sounds without peritoneal signs. No suprapubic tenderness. No distended bladder. Nurses already irrigated his 20 Latvian Diego catheter. Is clear yellow urine nondraining. No blood or clots. Appears to be draining well now. There was sediment initially. Moving all 4 extremities. Nontender no edema. Back nontender. Neurologically he is awake alert. Answering questions following commands Const Vital Signs: 06/23/25 21:51 Temperature 97.8 F Temperature Source Temporal Pulse Rate 90 Respiratory Rate 16 Blood Pressure 172/72 H Blood Pressure Mean 105 Pulse Ox 97 Oxygen Delivery Method Room Air Positive well nourished and well developed; Negative for cachectic, contractures or unkempt General Appearance ED: well developed and NAD; Negative for unkempt, cachectic, contractures or pallor Nutritional Appearance: Negative for cachectic HEENT Reports moist mucous membranes normocephalic and atraumatic Eyes PE (more content not included)... Normal [facility] Urine Cultureon 05-27-2025 URC Culture exhibits no growth. Normal [facility] Comment on above: Performed By: #### M 100.2200 ####[facility] [id number] [place], [address] Bilirubin Test strip Ql (U)O rdered By: Oscar Valencia on 05-26-2025 Bilirubin Ql (U) Negative Negative [facility] Emergency Department Summary on 05-26-2025 Emergency Department Summary [facility] Medical Records Department [address] [place] [address] Emergency Department Summary 05/26/25 MR#: [id number] Acct: [id number] Name: LORI LYNCH Rep #: [id number] : 1945 79 From: Oscar Valencia MD PCP: [facility] Status:REG ER Location: ED HPI History [...] catheter exchanged every month. Recently at the [facility], they have been inserting coud??? catheters. He ends up leaking around them, and has to come to the emergency department to get it exchanged for a regular Diego catheter that is 20 Latvian in size. He states that he had a Diego catheter changed today at the [facility] and it started leaking around the catheter again. He denies any fevers or chills, he is having bladder spasms. No hematuria. He states that this is the third time that he has had to come to the emergency department to get his straight Diego catheter. [facility] Medical History BPH with obstruction/lower urinary tract [...] is here for Diego catheter exchange. 20 Latvian Diego catheter will be placed by RN. [...] I feel he can be discharged to [facility] (more content not included)... Normal [facility] Ketones Test strip Ql (U)Ord ered By: Oscar Valencia on 05-26-2025 Ketones Ql (U) Negative Negative [facility] Microscopic analysis of urin e for red blood cells (RBC)Ordered By: Oscar Valencia on 05-26-2025 Microscopic analysis of urine for red blood cells (RBC) 25-50 SEEN /hpf 0-5 [facility] Mucus LM Ql (Urine sed)Order ed By: Oscar Valencia on 05-26-2025 Mucus Ql (Urine sed) 0 SEEN /hpf [facility] Nitrite Test strip Ql (U)Ord ered By: Oscar Valencia on 05-26-2025 Nitrite Ql (U) Negative Negative [facility] Protein Test strip Ql (U)Ord ered By: Oscar Valencia on 05-26-2025 Protein Ql (U) 100 mg/dl High Negative [facility] Squamous epithelial cells de tection in urine sediment by light microscopyOrdered By: Oscar Valencia on 05-26-2025 Epithelial cells.squamous LM Ql (Urine sed) 0 SEEN /hpf 0-5 [facility] Urinalysis, Completeon 05-26 BACTERIA 3+ /hpf Normal None Seen [facility] Comment on above: Order Comment: HUI TER SPECIMEN Performed By: #### L 400.0001, #### [facility] Laboratory [address] [place], [address] RBC 25-50 SEEN Normal [address] [place] [address] Comment on above: Order Comment: HUI TER SPECIMEN Performed By: #### L 400.0001, M1 #### [facility] [address] [place], [address] WBC >100 SEEN Normal 0-5 [facility] Comment on above: Order Comment: HUI TER SPECIMEN Performed By: #### L 400.0001, #### [facility] [address] [place], [address] EPI,SQUAMOUS 0 SEEN Normal [address] [place] [address] Comment on above: Order Comment: HUI TER SPECIMEN Performed By: #### L 400.0001, M1 #### [facility] [address] [place], [address] Mucus Ql (Urine sed) [address] [facility] Comment on above: Order Comment: HUI TER SPECIMEN Performed By: #### L 400.0001, M100.2200 #### [facility] [place], [address] Urine clarityOrdered By: Jasmin Valencia on 05-26-2025 Clarity (U) Turbid Clear [facility] Urine color determinationOrd ered By: Oscar Valencia on 05-26-2025 Color (U) Straw Yellow [facility] Urine cultureOrdered By: Jasmin Valencia on 05-26-2025 Bacteria identified Cx Nom (U) Culture exhibits no growth. [facility] Urine glucose detectionOrder ed By: Oscar Valencia on 05-26-2025 Glucose Ql (U) Normal mg/dl Normal [facility] Urine leukocyte esterase det ection by dipstickOrdered By: Oscar Valencia on 05-26-2025 Leukocyte esterase Test strip Ql (U) 500 /ul High Negative [facility] Urine pHOrdered By: Oscar rodriguez on 05-26-2025 pH (U) 6.5 [pH] 5.0 - 8.0 [facility] Urine sediment bacteria coun t by microscopy (number/high power field)Ordered By: Oscar Valencia on 05-26-2025 Bacteria LM.HPF (Urine sed) [#/Area] 3 /[HPF] None Seen [facility] Urine specific gravity measu rementOrdered By: Oscar Valencia on 05-26-2025 Specific gravity (U) [Rel density] 1.015 1.002-1.030 [facility] Urine urobilinogen measureme ntOrdered By: Oscar Valencia on 05-26-2025 Urobilinogen Ql (U) Normal mg/dl Normal [facility] White blood cell countOrdere d By: Oscar Valencia on 05-26-2025 White blood cell count >100 SEEN /hpf 0-5 [facility] Absolute lymphocyte countOrd ered By: Jemal Green on 05-23-2025 Lymphocytes Auto (Unsp spec) [#/Vol] 2.18 10*3/uL 0.83-4.51 [facility] Absolute neutrophil countOrd ered By: Jemal Green on 05-23-2025 Neutrophils (Bld) [#/Vol] 9.3 10*3/uL High 2.0-7.7 [facility] Activated partial thrombopla stin time (aPTT) in platelet poor plasma by coagulation aOrdered By: Jemal Green on 05-23-2025 aPTT Coag (PPP) [Time] 29.1 s 24.1-36.2 [facility] Automated lymphocyte count a s percentage of total leukocytesOrdered By: Jemal Green on 05-23-2025 Lymphocytes/100 WBC Auto (Unsp spec) 15.7 % Low 19-41 [facility] Basophil percentageOrdered B y: Jemal Green on 05-23-2025 Basophils/100 WBC (Bld) 0.5 % 0-1 [facility] Biopsy/Inj or Needle Placeme nton 05-23-2025 Biopsy/Inj or Needle Placement [facility] Imaging Services [address] [place], [place] [address] Biopsy/Inj or Needle Placement MR#: [id number] Acct: [id number] Name: LORI LYNHC Rep #: [id number] : 1945 M 79 From: Jemal Cueva PCP: [facility] Status: REG CLI Study: Biopsy/Inj or Needle Placement Date of Exam: 0 05/23/25 Exam# [id number] Ordering Dr: MIREYA SOLIS EXAM: CT-guided core [...] placement of a 20 gauge 15 cm OKKAMt core biopsy system. 4 core samples were successfully obtained. A very small pneumothorax was seen on post images. CT/Biopsy/Inj or Needle Placement IMPRESSION: Successful left upper lobe hypermetabolic nodule core biopsy. Pathology results pending. Reading Location: [place] [address] CC: MIREYA SOLIS; [facility] Real [employer] Intern: Signed Normal [facility] Blood manual differential co mment interpretation (narrative result)Ordered By: Jemal Green on 05-23-2025 Manual differential comment Ed (Bld) [Interp] COMMENT [facility] Comment on above: MONOCYTOSIS. CBC W/Diff, Automatedon 04-27 SMEAR COMMENT COMMENT Normal [facility] Comment on above: Result Comment: MONO CYTOSIS. Performed By: #### L 100.0100, L300.3900, L300.4310 #### [facility] [address] [place], [place], [address] Chest Insp/Exp 2 Viewon 04-27 Chest Insp/Exp 2 View [facility] Imaging Services [address] [place], [place] [address] Chest Insp/Exp 2 View MR#: [id number] Acct: [id number] Name: LORI LYNCH Rep #: [id number] : 1945 M 79 From: Jemal Cueva PCP: [facility] Status: REG CLI Study: Chest Insp/Exp 2 View Date of Exam: 05/23/25 Exam# [id number] Ordering Dr: Jemal Green MD EXAM: AP [...] interval osseous change is noted. Reading Location: [place] [address] CC: Dr. Jemal Green MD; [facility] [employer] Intern: Signed Normal [facility] Chest Insp/Exp 2 View [facility] Imaging Services [address] [place] [address] Chest Insp/Exp 2 View MR#: [id number] Acct: [id number] Name: LORI LYNCH Rep #: [id number] : 1945 M 79 From: Ramses gasca MD PCP: [facility] Status: REG CLI Study: Chest Insp/Exp 2 View Date of Exam: 05/23/25 Exam# [id number] Ordering Dr: Jemal Green MD EXAM: AP inspiration expiration views following left lung biopsy. CLINICAL HISTORY: Status post left lung biopsy. COMPARISON: Prior study dated March 24, 2025. TECHNIQUE: AP inspiration expiration views. FINDINGS: No evidence of pneumothorax following the biopsy. RAD/Chest Insp/Exp 2 View IMPRESSION: No evidence of pneumothorax following the biopsy. Reading Location: [id number] CC: Dr. Jemal Green MD; [facility] [employer] Intern: Signed Normal [facility] Eosinophil percentageOrdered By: Jemal Green on 05-23-2025 Eosinophils/100 WBC (Bld) 3.6 % 0-5 [facility] Erythrocyte distribution wid th ratioOrdered By: Jemal Green on 05-23-2025 Erythrocyte distribution width (RBC) [Ratio] 18.6 % High 11.6-14.6 [facility] Erythrocyte distribution wid th standard deviationOrdered By: Jemal Green on 05-23-2025 Erythrocyte distribution width (RBC) [Ratio] 51.5 fl High 35.1-43.9 [facility] Hematocrit Auto (Bld) [Volum e fraction]Ordered By: Jemal Green on 05-23-2025 Hematocrit (Bld) [Volume fraction] 34.8 % Low 40-54 [facility] Hemoglobin measurementOrdere d By: Jemal Green on 05-23-2025 Hemoglobin (Bld) [Mass/Vol] 11.2 g/dL Low 13.0-16.5 [facility] Immature granulocytes/100 WB C Auto (Bld)Ordered By: Jemal Green on 05-23-2025 Immature granulocytes/100 WBC (Bld) 0.700 % 0.0-0.9 [facility] Comment on above: IG% - Immature Granu locytes (promyelocytes, myelocytes and metamyelocytes) > 1% indicates that a LEFT SHIFT is Present. Immunohistochemical Stainson 05-23-2025 Immunohistochemical Stains Patient Age/Sex Location Account Attending Physician LORI LYNCH 79/M CT [id number] MIREYA SOLIS Specimen: [id number] Received: 05/23/25 Status: BLAKE [place] Num: [id number] Spec Type: ASP RAD Subm Dr: MIREYA SOLIS HEADER OPERATION: CT guided lung biopsy PRE-OP DIAGNOSIS: [...] specimen is entirely submitted in 2 cassettes. MA 05/23/2025 CPT:28960,80907,69206,88 341x8 ADDENDUM Addendum 1 Entered: 06/03/25-9650 This addendum is to report the interpretation of the IHC stains. The tumor cells are: Patient Age/Sex Location Account Attending Physician LORI LYNCH 79/M [place] [id number] MIREYA SOLIS ADDENDUM (Continued) Positive for pankeratin, CK7, Napsin (patchy), p40 (focal), TTF-1, CAM5.2 Negative for CK20, CK5/6, Chromogranin, Synaptophysin. 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 Correlation with clinical and imaging findings is essential. Selected slides/images were reviewed in intradepartmental consultation by Dr Elana Guerra (thoracic pathology division, [facility]) All matched controls reacted appropriately. (pankeratin, CK7, CK20, Napsin, CK5/6, p40, TTF-1, Chromogranin, Synaptophysin) These tests were developed and their performance characteristics determined by [facility]. They may not have been cleared or approved by the U.S. Food and Drug Administration. The FDA has determined that such clearance or approval is not necessary.??? The above immunohistochemical/dual [place]???markers are reviewed by the Pathologist. All controls show appropriate reactivity. (CAM5.2) All immunohistochemistry, in situ hybridization, and histochemical tests were developed by and are performed at the [facility], [address] [place] [address], [place] [address]. All Immunofluorescent (IF)???tests were developed by and are performed at the [facility], [address] [place] [address] ???[id number]. All tests reported here, except those addressing [...] on file) Dr. Carmen Robin MD 06/03/25 1110 Patient Age/Sex Location Account Attending Physician LORI LYNCH 79/M [place] [id number] MIREYA SOLIS Signed (signature on file) Dr. Carmen Robin MD 05/26/25 1122 Normal [facility] Comment on above: Performed By: #### P JUNIOR, PSSII ####[facility] [address] [place], [address] International normalized rat io (INR) calculationOrdered By: Jemal Green on 05-23-2025 INR Coag (Bld) [Relative time] 1.1 {INR} [facility] MCV (mean corpuscular volume ) determinationOrdered By: Jemal Green on 05-23-2025 MCV (RBC) [Entitic vol] 77.9 fL Low 80-94 [facility] Mean corpuscular hemoglobin (MCH) determinationOrdered By: Jemal Green on 05-23-2025 MCH (RBC) [Entitic mass] 25.1 pg Low 27.0-32.0 [facility] Mean corpuscular hemoglobin concentration (MCHC) determinationOrdered By: Jemal Green on 05-23-2025 MCHC (RBC) [Mass/Vol] 32.2 g/dL 32-36 [facility] Mean platelet volume determi nationOrdered By: Jemal Green on 05-23-2025 Platelet mean volume (Bld) [Entitic vol] 10.9 fL 6.2-12.0 [facility] Monocyte percentageOrdered B y: Jemal Green on 05-23-2025 Monocytes/100 WBC (Bld) 12.5 % High 0-10 [facility] Neutrophil percentageOrdered By: Jemal Green on 05-23-2025 Neutrophils/100 WBC (Bld) 67.0 % 47-70 [facility] Nucleated red blood cell per centageOrdered By: Jemal Green on 05-23-2025 Nucleated RBC/100 WBC (Bld) [Ratio] 0 % 0-5 [facility] Partial Thromboplast Timeon 05-23-2025 aPTT Coag (Bld) [Time] 29.1 s Normal 24.1-36.2 [facility] Comment on above: Performed By: #### L 100.0100, L300.3900, L300.4310 #### [facility] [address] [place], [address] Platelet countOrdered By: Jean Green on 05-23-2025 Platelets (Bld) [#/Vol] 353 10*3/uL 150-450 [facility] Prothrombin Time w/INRon INR Coag (PPP) [Relative time] 1.1 {INR} Normal [facility] Comment on above: Performed By: #### L 100.0100, L300.3900, L300.4310 #### [facility] [address] [place], [address] PT Coag (PPP) [Time] 13.9 s Normal 11.7-14.9 [facility] Comment on above: Performed By: #### L 100.0100, L300.3900, L300.4310 #### [facility] [address] [place], [address] Prothrombin timeOrdered By: Jemal Green on 05-23-2025 PT Coag (PPP) [Time] 13.9 s 11.7-14.9 [facility] RBC Auto (Bld) [#/Vol]Ordere d By: Jemal Green on 05-23-2025 RBC (Bld) [#/Vol] 4.47 10*6/uL Low 4.6-6.2 [facility] Special Stain Group IIon Special Stain Group II ------- Patient Age/Sex Location Account Attending Physician LORI LYNCH 79/M CT [id number] MIREYA SOLIS Specimen: [id number] Received: 05/23/25 Status: BLAKE [place] Num: [id number] Spec Type: ASP RAD Subm Dr: MIREYA SOLIS HEADER OPERATION: CT guided lung biopsy PRE-OP DIAGNOSIS: [...] specimen is entirely submitted in 2 cassettes. MA 05/23/2025 CPT:89188,24299 Patient Age/Sex Location Account Attending Physician LORI LYNCH 79/M CT [id number] MIREYA SOLIS Signed (signature on file) Dr. Carmen Robin MD 05/26/25 0665 Normal [facility] Comment on above: Performed By: #### L 400.0001, M100.2200 #### [facility] [address] [place], [address] White blood cell (WBC) count Ordered By: Jemal Green on 05-23-2025 WBC (Bld) [#/Vol] 13.9 10*3/uL High 4.4-11.0 [facility] Urine Cultureon 05-11-2025 [facility] Urine Culture Urine Culture Stenotrophomonas maltophilia Wynne Count 80,000-100,000 Acinetobacter junii Acinetobacter junii Stenotrophomonas maltophilia: REACTION levoFLOXacin Islt SEGUNDO 1 S TMP SMX Islt SEGUNDO <=20 Acinetobacter junii: REACTION Ampicillin+Sulbac Islt SEGUNDO <=2 S levoFLOXacin Islt SEGUNDO <=0.12 Meropenem Islt SEGUNDO 1 S Pip+Tazo Islt SEGUNDO >=128 R TMP SMX Islt SEGUNDO <=20 S Normal [facility] Comment on above: Performed By: #### L 100.0100, L300.3900, L300.4310 #### [facility] [address] [place], [address] Hand Min 3 Viewson Hand Min 3 Views [facility] Imaging Services [address] [place] [address] Hand Min 3 Views MR#: [id number] Acct: [id number] Name: LORI LYNCH Rep #: [id number] : 1945 M 79 From: Karson Murray MD PCP: [facility] Status: [facility] ER Study: Hand Min 3 Views Date of Exam: 05/09/25 Exam# [id number] Ordering Dr: Anjelica,Lenny PCheng PROCEDURE: HAND MIN 3 VIEWS 05/09/2025 REASON FOR EXAM: INJURY TECHNIQUE: HAND MIN 3 VIEWS COMPARISON: No FINDINGS: Scattered hand osteoarthritis, mainly small osteophyte formation and interphalangeal joint space narrowing. No acute bone or soft tissue pathology. RAD/Hand Min 3 Views IMPRESSION: No acute injury. Reading Location: [facility] CC: ED PHYSICIAN PROVIDER; [facility] Real Estate Intern: Signed Normal [facility] Wrist min 3 Viewson 05-09-20 25 Wrist min 3 Views [facility] Imaging Services [address] [place] [address] Wrist min 3 Views MR#: [id number] Acct: [id number] Name: LORI LYNCH Rep #: [id number] : 1945 M 79 From: Karson Murray MD PCP: [facility] Status: DEP ER Study: Wrist min 3 Views Date of Exam: 05/09/25 Exam# [id number] Ordering Dr: Provider,Ed P. PROCEDURE: WRIST MIN 3 VIEWS 05/09/2025 REASON FOR EXAM: INJURY TECHNIQUE: WRIST MIN 3 VIEWS COMPARISON: No FINDINGS: Mild lateral wrist osteoarthritis. Triangular fibrocartilage calcification. No acute fracture or dislocation. RAD/Wrist min 3 Views IMPRESSION: No acute injury Reading Location: [facility] CC: ED PHYSICIAN PROVIDER; [facility] Real Estate Intern: Signed Normal [facility] Bilirubin Test strip Ql (U)O rdered By: William Seals on 05-08-2025 Bilirubin Ql (U) Negative Negative [facility] Emergency Department Summary on 05-08-2025 Emergency Department Summary [facility] Medical Records Department [address] [place] [address] Emergency Department Summary 05/08/25 MR#: [id number] Acct: [id number] Name: LORI LYNCH Rep #: [id number] : 1945 79 From: William Seals DO PCP: [facility] Status:DEP ER Location: ED ADDENDUM by Dr. Omari Blake DO on 05/11/25 at 1621 Urine culture results stenotrophomonas maltophilia along with actinobacter Junii both sensitive to Levaquin. He was sent home on Cipro. Nursing reached out states patient states he still has dysuria. Levaquin 750 mg sent to his pharmacy for 5 days. 05/11/25 1621 Cosigner Signature (if applicable): cc: [facility] * Signed HPI History of Present [...] pain. Patient denies any nausea or vomiting. [facility] Medical History (Updated 05/08/25 @ 09:07 by [...] Sensorium / (more content not included)... Normal [facility] Ketones Test strip Ql (U)Ord ered By: William Seals on 05-08-2025 Ketones Ql (U) Negative Negative [facility] Microscopic analysis of urin e for red blood cells (RBC)Ordered By: William Seals on 05-08-2025 Microscopic analysis of urine for red blood cells (RBC) > 100 SEEN /hpf 0-5 [facility] Mucus LM Ql (Urine sed)Order ed By: William Seals on 05-08-2025 Mucus Ql (Urine sed) 0 SEEN /hpf [facility] Nitrite Test strip Ql (U)Ord ered By: William Seals on 05-08-2025 Nitrite Ql (U) Negative Negative [facility] Protein Test strip Ql (U)Ord ered By: William Seals on 05-08-2025 Protein Ql (U) 100 mg/dl High Negative [facility] Squamous epithelial cells de tection in urine sediment by light microscopyOrdered By: William Seals on 05-08-2025 Epithelial cells.squamous LM Ql (Urine sed) 0 SEEN /hpf 0-5 [facility] Urinalysis, Completeon 05-08 RBC > 100 SEEN Normal [address] [place] [address] Comment on above: Order Comment: CLEAN CATCH Performed By: #### L 400.0001 ####[facility] [address] [facility] [address] WBC >100 SEEN Normal [address] Comment on above: Order Comment: CLEAN CATCH Performed By: #### L 400.0001 ####[facility] [address] [facility] [address] BACTERIA 0 SEEN Normal None Seen [facility] Comment on above: Order Comment: CLEAN CATCH Performed By: #### L 400.0001 ####[facility] [address] [place], [address] EPI,SQUAMOUS 0 SEEN Normal [address] [place] [address] Comment on above: Order Comment: CLEAN CATCH Performed By: #### L 400.0001 ####[facility] [address] [place], [address] Mucus Ql (Urine sed) 0 SEEN Normal [facility] Comment on above: Order Comment: CLEAN CATCH Performed By: #### L 400.0001 ####[facility] [address] [place], [address] Urine clarityOrdered By: Divina Seals on 05-08-2025 Clarity (U) Cloudy Clear [facility] Urine color determinationOrd ered By: William Seals on 05-08-2025 Color (U) Yellow Yellow [facility] Urine cultureOrdered By: Divina Seals on 05-08-2025 Bacteria identified Cx Nom (U) Stenotrophomonas maltophilia Abnormal [facility] Bacteria identified Cx Nom (U) Acinetobacter junii Abnormal [facility] Urine glucose detectionOrder ed By: William Seals on 05-08-2025 Glucose Ql (U) 100 mg/dl High Normal [facility] Urine leukocyte esterase det ection by dipstickOrdered By: William Seals on 05-08-2025 Leukocyte esterase Test strip Ql (U) 500 /ul High Negative [facility] Urine pHOrdered By: William alvarez on 05-08-2025 pH (U) 6.5 [pH] 5.0 - 8.0 [facility] Urine sediment bacteria coun t by microscopy (number/high power field)Ordered By: William Seals on 05-08-2025 Bacteria LM.HPF (Urine sed) [#/Area] 0 /[HPF] None Seen [facility] Urine specific gravity measu rementOrdered By: William Seals on 05-08-2025 Specific gravity (U) [Rel density] 1.010 1.002-1.030 [facility] Urine urobilinogen measureme ntOrdered By: William Seals on 05-08-2025 Urobilinogen Ql (U) Normal mg/dl Normal [facility] White blood cell countOrdere d By: William Seals on 05-08-2025 White blood cell count >100 SEEN /hpf 0-5 [facility] Emergency Department Summary on 04-29-2025 Emergency Department Summary [facility] Medical Records Department [address] [place] [address] Emergency Department Summary 04/29/25 MR#: [id number] Acct: [id number] Name: LORI LYNCH Rep #: [id number] : 1945 79 From: William Seals DO PCP: [facility] Status:DEP ER Location: ED HPI History of Present Illness Chief Complaint: Complaint Narrative Narrative: 79-year-old male was in our emergency department earlier today because his Diego catheter was leaking. It was routinely changed at [facility] yesterday. He has it for BPH. Earlier today the nurse irrigated it and readjusted it and it seemed to be draining properly but after he got home he stopped leaking around the penis again. [facility] Medical History BPH with obstruction/lower urinary tract [...] 98 95 Oxygen Delivery Method Room Air MDM MDM Treatment and Re-Evaluation Narrative: I have [...] Patient stat (more content not included)... Normal [facility] Emergency Department Summary [facility] Medical Records Department [address] [place] [address] Emergency Department Summary 04/29/25 MR#: [id number] Acct: [id number] Name: LORI LYNCH Rep #: [id number] : 1945 79 From: Chikis ROBERTSON PCP: [facility] Status:REG ER Location: ED HPI History of Present Illness Chief Complaint: Complaint Narrative Narrative: 79-year-old male has BPH and chronic indwelling Diego June 2024. He saw his urologist at the [facility] yesterday and had a routine catheter change. Since then urine has been leaking from around the tube and his penis is only partially draining in the bag. He has no pain. No hematuria or clots. [facility] Medical History BPH with obstruction/lower urinary tract [...] rebound, nondistended. : Normal external genitalia. 20 Lat[address]ian Diego catheter in place. There is urine [...] making narrative: 79-year-old male with a 20 Latvian Diego catheter is leaking since it was [...] include: Hist (more content not included)... Normal [facility] CNOVon 04-22-2025 CNOV Office Visit (AKURFL ) -------- LORI LYNCH ([id number]) 1945 M Date Time Provider Department 04/22/25 8:30 AM ALEC TINAJERO During your visit today, we recorded the following information about you: Alec Tinajero MD 04/22/2025 8:38 AM Signed ESTABLISHED PATIENT OFFICE VISIT Unit Secy present: Nina Sexton MA PATIENT INFO: Lori [...] Florez He wants to connect with Dr. Folrez so we will refer He is only on baby aspirin with respect to any blood thinners Denies chest pain Past Urology Hx: 03/15/2025 Pt CC: diego VOIDING SYMPTOMS: In June 2024 patient went into retention and the [facility] has been changing the catheter monthly since then He saw urology at the [facility] and they talked him about getting [facility] at the [facility] [place] but he wants to come to [place] as it is closer to [place] where he lives Has had catheter change in [place] Had a aqua ablation in the past and saw Dr. Camarillo as noted below but a lot of urine frequency then that persisted Catheter has been draining well now No fevers or chills Follows his elevated creatinine with [facility] CT report showed some mild bilateral hydroureter and severe BPH with bilateral renal cysts and some might be 2F and suggested follow-up Instructed him to get disc with films from [place] where he had them and see me [...] operatively. I (more content not included)... Normal [facility] PET/CT Tumor Base -Thigh Sub son 04-05-2025 PET/CT Tumor Base -Thigh Subs [facility] Imaging Services [address] [place], [place] [address] PET/CT Tumor Base -Thigh Subs MR#: [id number] Acct: [id number] Name: LORI LYNCH Rep #: [id number] : 1945 M 79 From: Jemal Cueva PCP: [facility] Status: REG CLI Study: PET/CT Tumor Base -Thigh Subs Date of Exam: Exam# [id number] Ordering Dr: MIREYA SOLIS PROCEDURE: PET/CT TUMOR [...] PET will be reported separately. Reading Location: [address] CC: MIREYA SOLIS; [facility] Real Estate Intern: Signed Normal [facility] Positron emission tomography scan reportOrdered By: Jemal Green on 04-05-2025 PT Unspecified body region [facility] Imaging Services [address] [place] [address] [id number] PET/CT Tumor Base -Thigh Subs MR#: [id number] Acct: [id number] Name: LORI LYNCH Rep #: [id number] : 1945 M 79 From: Berlin Green MD PCP: [facility] Status: REG CLI Study:PET/CT Tumor Base -Thigh Subs Date of E xam: 04/05/25 Exam# [id number] Ordering Dr: MIREYA LAWSON PROCEDURE: PET/CT TUMOR [...] PET will be reported separately. Reading Location: [address] CC: MIREYA SOLIS; [facility] ~ Real Estate Intern: Signed [facility] Chest PA and Lateralon 03-24 Chest PA and Lateral [facility] Imaging Services [address] [place], [place] [address] Chest PA and Lateral MR#: [id number] Acct: [id number] Name: SYEDLORI Rep #: [id number] : 1945 M 79 From: Zarina Edouard nd, MD PCP: [facility] Status: REG CLI Study: Chest PA and Lateral Date of Exam: 03/24/25 Exam# [id number] Ordering Dr: Chikis Hernandez PROCEDURE: CHEST PA [...] not well-visualized by radiographic imaging. Reading Location: [id number] CC: MASON Hernandez; [facility] Real Estate Intern: Signed Normal [facility] CNOVon 03-15-2025 CNOV Office Visit (DENAURFFaina ) -------- LORI LYNCH ([id number]) 1945 M Date Time Provider Department 03/15/25 9:00 AM ALEC TINAJERO During your visit today, we recorded the following information about you: Alec Tinajero MD 03/16/2025 2:56 PM Signed NEW PATIENT HISTORY AND PHYSICAL EXAM patient declined sliver chopper PATIENT INFO: Lori Lynch 79 year old HPI 03/15/2025 Pt CC: diego VOIDING SYMPTOMS: In June 2024 patient went into retention and the [facility] has been changing the catheter monthly since then He saw urology at the [facility] and they talked him about getting [facility]rapubic tube at the [facility] in [place] but he wants to come to [place] as it is closer to [place] where he lives Has had catheter change in [place] Had a aqua ablation in the past and saw Dr. Camarillo as noted below but a lot of urine frequency then that persisted Catheter has been draining well now No fevers or chills Follows his elevated creatinine with [facility] CT report showed some mild bilateral hydroureter and severe BPH with bilateral renal cysts and some might be 2F and suggested follow-up Instructed him to get disc with films from [place] where he had them and see me [...] discussed with the Patient or Patient's Authorized Sequins Spooler. As applicable, any other physician, advance practice provider, medical student, or other health professional student that will be observing or involved in the sensitive examination for educational or training purposes was discussed with the Patient or Authorized Sequins Spooler. The Patient or Authorized Sequins Spooler has agreed to proceed with the sensitive examination. (Sensitive examination includes inspection and/or palpation of the breasts, pelvis, prostate and anorectal regions) Risk/Benefit Discussion: Cystoscopy I explained the options concerning cystoscopy I did tell the patient about various alternatives and why cystoscopy was indicated in this particular circumstance. I advised the patient about the possi (more content not included)... Normal [facility] Emergency Department Summary on 03-02-2025 Emergency Department Summary [facility] Medical Records Department [address] [place] [address] Emergency Department Summary 03/02/25 MR#: [id number] Acct: [id number] Name: LORI LYNCH Rep #: [id number] : 1945 79 From: Clayton Croft DO PCP: [facility] Status:DEP ER Location: ED HPI History of Present Illness Chief Complaint: Diego C/O Informant: patient Narrative Narrative: 79-year-old male presenting to the emergency room with leakage of urine around Diego catheter. Patient has had a indwelling Diego catheter since last fall. He states that it was changed a few days ago by the [facility]. He states that they did not have the same size that he had them before but he is unsure what size was in there before. He notes currently has a 20 Latvian. He notes a history of BPH he takes finasteride. He states that this is not the first time he is come to emergency because of a leaking Diego catheter. He notes no change in the urine. No fevers no chills. He states that last time it was leaking because the balloon was in my prostate. [facility] Medical History BPH with obstruction/lower urinary tract [...] findings. There (more content not included)... Normal [facility] CBC W/Diff, Automatedon 01-26 PATH REV Reviewed Normal [facility] Comment on above: Result Comment: SEE REPORT IN PATIENT'S EMR AMENDED REPORT 02/14/25 1606 PATH REV previously reported as: February yung Performed By: #### L 100.0100, L300.3900, L300.4310 #### [facility] [address] [place], [address] Culture, Blood (WB)on 2024 CUB Blood cultures x2, f rom two different sites No growth in 5 days. Normal [facility] Comment on above: Performed By: #### L 100.0100, L300.3900, L300.4310 #### [facility] [address] [place], [address] Urine Cultureon 01-27-2025 [facility] Hafnia alvei Wynne Count 80,000-100,000 Hafnia alvei: REACTION Ampicillin Islt SEGUNDO Ampicillin+Sulbac Islt SEGUNDO >=32 R cefTRIAXone Islt SEGUNDO 1 S Ciprofloxacin Islt SEGUNDO <=0.06 S Gentamicin Islt SEGUNDO <=1 S levoFLOXacin Islt SEGUNDO <=0.12 S Meropenem Islt SEGUNDO <=0.25 S Nitrofurantoin Islt SEGUNDO <=16 S Pip+Tazo Islt SEGUNDO 16 I TMP SMX Islt SEGUNDO <=20 S Normal [facility] Comment on above: Performed By: #### L 100.0100, L300.3900, L300.4310 #### [facility] [address] [place], [address] Abdomen/Pelvis without Conto n 01-25-2025 Abdomen/Pelvis without Cont [facility] Imaging Services [address] [place] [address] Abdomen/Pelvis without Cont MR#: [id number] Acct: [id number] Name: LORI LYNCH Rep #: [id number] : 1945 M 79 From: Ramses gasca MD PCP: [facility] Status: REG ER Study: Abdomen/Pelvis without Cont Date of Exam: 11/20 Exam# [id number] Ordering Dr: Greg Ruiz MD PROCEDURE: ABDOMEN/PELVIS [...] seen within the prostatic urethra. Reading Location: [facility] CC: Dr. Greg Ruiz MD; [facility] Real Estate Intern: Signed Normal [facility] Absolute lymphocyte countOrd ered By: Greg Ruiz on 01-25-2025 Lymphocytes Auto (Unsp spec) [#/Vol] 1.67 10*3/uL 0.83-4.51 [facility] Absolute neutrophil countOrd ered By: Greg Ruiz on 01-25-2025 Neutrophils (Bld) [#/Vol] 13.0 10*3/uL High 2.0-7.7 [facility] Anion gap in Serum or Plasma Ordered By: Greg Ruiz on 01-25-2025 Anion gap [Moles/Vol] 14 mmol/L 5-15 [facility] Automated lymphocyte count a s percentage of total leukocytesOrdered By: Greg Ruiz on 01-25-2025 Lymphocytes/100 WBC Auto (Unsp spec) 9.4 % Low 19-41 [facility] BUN/creatinine ratioOrdered By: Greg Ruiz on 01-25-2025 Urea nitrogen/Creatinine [Mass ratio] 14.9 mg/mg 10-20 [facility] Basic Metabolic Profile (BMP )on 01-25-2025 BUN/CRE 14.9 RATIO Normal - [facility] Comment on above: Performed By: #### L 100.0100, L300.3900, L300.4310 #### [facility] Laboratory [address] [place] [address]. [place], [place], [id number] Calcium [Mass/Vol] 8.5 mg/dL Normal 7.6-11.0 [facility] Comment on above: Performed By: #### L 100.0100, L300.3900, L300.4310 #### [facility] [address] [place], [address] Chloride [Moles/Vol] 106 mmol/L Normal 98-108 [facility] Comment on above: Performed By: #### L 100.0100, L300.3900, L300.4310 #### [facility] [address] [place], [address] CO2 [Moles/Vol] 17.5 mmol/L Low 21.0-32.0 [facility] Comment on above: Performed By: #### L 100.0100, L300.3900, L300.4310 #### [facility] [address] [place], [address] Creatinine [Mass/Vol] 3.33 mg/dL High 0.70-1.20 [facility] Comment on above: Performed By: #### L 100.0100, L300.3900, L300.4310 #### [facility] [address] [place], [address] ECRCL 20.35 ml/min Low 50-250 [facility] Comment on above: Performed By: #### L 100.0100, L300.3900, L300.4310 #### [facility] [address] [place], [address] GAP 14 Normal 5-15 [facility] Comment on above: Performed By: #### L 100.0100, L300.3900, L300.4310 #### [facility] [address] [place], [address] GFR/1.73 sq M.predicted among non-blacks MDRD (S/P/Bld) [Vol rate/Area] 18 mL/min/{1.73_m2} Low >60 [facility] Comment on above: Result Comment: mL/m in/1.73m2 CKD-EPI Creatinine Equation (2020) Performed By: #### L 100.0100, L300.3900, L300.4310 #### [facility] [address] [place], [address] Glucose [Mass/Vol] 247 mg/dL High 70-99 [facility] Comment on above: Performed By: #### L 100.0100, L300.3900, L300.4310 #### [facility] [address] [place], [address] Potassium [Moles/Vol] 4.4 mmol/L Normal 3.3-5.1 [facility] Comment on above: Performed By: #### L 100.0100, L300.3900, L300.4310 #### [facility] [address] [place], [address] Sodium [Moles/Vol] 137 mmol/L Normal 133-145 [facility] Comment on above: Performed By: #### L 100.0100, L300.3900, L300.4310 #### [facility] [address] [place], [address] Urea nitrogen [Mass/Vol] 50 mg/dL High 4-19 [facility] Comment on above: Performed By: #### L 100.0100, L300.3900, L300.4310 #### [facility] [address] [place], [address] Basophil percentageOrdered B y: Greg Ruiz on 01-25-2025 Basophils/100 WBC (Bld) 0.4 % 0-1 [facility] Bilirubin Test strip Ql (U)O rdered By: Greg Ruiz on 01-25-2025 Bilirubin Ql (U) Negative Negative [facility] Blood cultureOrdered By: Maya Ruiz on 04-01-2025 Bacteria identified Cx Nom (Bld) No growth in 5 days. [facility] Bacteria identified Cx Nom (Bld) No growth in 5 days. [facility] Blood manual differential co mment interpretation (narrative result)Ordered By: Greg Ruiz on 01-25-2025 Manual differential comment Ed (Bld) [Interp] SCANNED [facility] Comment on above: MONOCYTOSIS NOTED Carbon dioxide, total [Moles /volume] in Central venous bloodOrdered By: Greg Ruiz on 01-25-2025 CO2 [Moles/Vol] 17.5 mmol/L Low 21.0-32.0 [facility] Chloride assayOrdered By: Aydee Ruiz on 01-25-2025 Chloride [Moles/Vol] 106 mmol/L 98-108 [facility] Emergency Department Summary on 01-25-2025 Emergency Department Summary [facility] Medical Records Department [address] [place] [address] Emergency Department Summary 01/25/25 MR#: [id number] Acct: [id number] Name: LORI LYNCH Rep #: [id number] : 1945 79 From: Greg Ruiz MD PCP: [facility] Status:REG ER Location: ED HPI History [...] is concerned he may have a UTI. [facility] Medical History BPH with obstruction/lower urinary tract [...] 324 mg PO QHS 01/25/25 01/24/25 Hi bright iron) tablet Allergy/AdvReac Type Severity Reaction Status [...] yellow nonbl (more content not included)... Normal [facility] Eosinophil percentageOrdered By: Greg Ruiz on 01-25-2025 Eosinophils/100 WBC (Bld) 1.0 % 0-5 [facility] Epithelial cells.squamous LM Ql (Urine sed)Ordered By: Greg Ruiz on 01-25-2025 Epithelial cells.squamous LM.HPF (Urine sed) [#/Area] 0 /[HPF] 0-5 [facility] Erythrocyte distribution wid th ratioOrdered By: Greg Ruiz on 01-25-2025 Erythrocyte distribution width (RBC) [Ratio] 19.1 % High 11.6-14.6 [facility] Erythrocyte distribution wid th standard deviationOrdered By: Greg Ruiz on 01-25-2025 Erythrocyte distribution width (RBC) [Entitic vol] 51.0 fL High 35.1-43.9 [facility] Erythrocyte distribution width (RBC) [Ratio] 51.0 fl High 35.1-43.9 [facility] Estimation of creatinine alexis aranceOrdered By: Greg Ruiz on 01-25-2025 Estimated Creatinine Clearance Calc 20.35 ml/min Low 50-250 [facility] GFR/1.73 sq M.predicted pranav g non-blacks MDRD (S/P/Bld) [Vol rate/Area]Ordered By: Greg Ruiz on 01-25-2025 Estimated GFR (MDRD) Non-Af Amer 18 Low >60 [facility] Comment on above: mL/min/1.73m2 CKD-EP I Creatinine Equation (2020) Glomerular filtration rate ( GFR) estimation/1.73 sq m using serum, plasma, or whole bOrdered By: Greg Ruiz on 01-25-2025 GFR/1.73 sq M.predicted among non-blacks MDRD (S/P/Bld) [Vol rate/Area] 18 mL/min/{1.73_m2} Low >60 [facility] Comment on above: mL/min/1.73m2 CKD-EP I Creatinine Equation (2020) Glucose Ql (U)Ordered By: Aydee Ruiz on 01-25-2025 Glucose (U) [Mass/Vol] 100 mg/dL High Normal [facility] Hematocrit Auto (Bld) [Volum e fraction]Ordered By: Greg Ruiz on 01-25-2025 Hematocrit (Bld) [Volume fraction] 34.0 % Low 40-54 [facility] Hemoglobin measurementOrdere d By: Greg Ruiz on 01-25-2025 Hemoglobin (Bld) [Mass/Vol] 10.9 g/dL Low 13.0-16.5 [facility] Immature granulocytes/100 WB C Auto (Bld)Ordered By: Greg Ruiz on 01-25-2025 Immature granulocytes/100 WBC (Bld) 0.800 % 0.0-0.9 [facility] Comment on above: IG% - Immature Granu locytes (promyelocytes, myelocytes and metamyelocytes) > 1% indicates that a LEFT SHIFT is Present. Ketones Test strip Ql (U)Ord ered By: Greg Ruiz on 01-25-2025 Ketones Ql (U) Negative Negative [facility] Lactic Acidon 01-25-2025 Lactate [Moles/Vol] 1.4 mmol/L Normal 0.0-2.0 [facility] Comment on above: Order Comment: Y Performed By: #### L 100.0100, L300.3900, L300.4310 #### [facility] [place], [address] Lactic acid measurementOrder ed By: Greg Ruiz on 01-25-2025 Lactate [Moles/Vol] 1.4 mmol/L 0.0-2.0 [facility] Lymphocytes Auto (Unsp spec) [#/Vol]Ordered By: Greg Ruiz on 01-25-2025 Lymphocytes (Bld) [#/Vol] 1.67 10*3/uL 0.83-4.51 [facility] Lymphocytes/100 WBC Auto (Un sp spec)Ordered By: Greg Ruiz on 01-25-2025 Lymphocytes/100 WBC (Bld) 9.4 % Low 19-41 [facility] MCV (mean corpuscular volume ) determinationOrdered By: Greg Ruiz on 01-25-2025 MCV (RBC) [Entitic vol] 74.9 fL Low 80-94 [facility] Manual differential comment Ed (Bld) [Interp]Ordered By: Greg Ruiz on 01-25-2025 Differential Comment SCANNED [facility] Comment on above: MONOCYTOSIS NOTED Mean corpuscular hemoglobin (MCH) determinationOrdered By: Greg Ruiz on 01-25-2025 MCH (RBC) [Entitic mass] 24.0 pg Low 27.0-32.0 [facility] Mean corpuscular hemoglobin concentration (MCHC) determinationOrdered By: Greg Ruiz on 01-25-2025 MCHC (RBC) [Mass/Vol] 32.1 g/dL 32-36 [facility] Mean platelet volume determi nationOrdered By: Greg Ruiz on 01-25-2025 Platelet mean volume (Bld) [Entitic vol] 10.8 fL 6.2-12.0 [facility] Microscopic analysis of urin e for red blood cells (RBC)Ordered By: Greg Ruiz on 01-25-2025 Microscopic analysis of urine for red blood cells (RBC) 25-50 SEEN /hpf 0-5 [facility] Urine RBC 25-50 SEEN /hpf 0-5 [facility] Monocyte percentageOrdered B y: Greg Ruiz on 01-25-2025 Monocytes/100 WBC (Bld) 15.4 % High 0-10 [facility] Mucus LM Ql (Urine sed)Order ed By: Greg Ruiz on 01-25-2025 Mucus Ql (Urine sed) 0 SEEN /hpf [facility] Neutrophil percentageOrdered By: Greg Ruiz on 01-25-2025 Neutrophils/100 WBC (Bld) 73.0 % High 47-70 [facility] Nitrite Test strip Ql (U)Ord ered By: Greg Ruiz on 01-25-2025 Nitrite Ql (U) Negative Negative [facility] Nucleated red blood cell per centageOrdered By: Greg Ruiz on 01-25-2025 Nucleated RBC/100 WBC (Bld) [Ratio] 0 % 0-5 [facility] Pathologist review Ed (Unsp spec) [Interp]Ordered By: Greg Ruiz on 01-25-2025 Differential Pathologist's Review May [facility] Platelet countOrdered By: Aydee Ruiz on 01-25-2025 Platelets (Bld) [#/Vol] 228 10*3/uL 150-450 [facility] Potassium (Unsp spec) [Mass/ Vol]Ordered By: Greg Ruiz on 01-25-2025 Potassium [Moles/Vol] 4.4 mmol/L 3.3-5.1 [facility] Potassium measurement (mass/ volume)Ordered By: Greg Ruiz on 01-25-2025 Potassium (Unsp spec) [Mass/Vol] 4.4 mmol/L 3.3-5.1 [facility] Protein Test strip Ql (U)Ord ered By: Greg Ruiz on 01-25-2025 Protein Ql (U) 100 mg/dl High Negative [facility] RBC Auto (Bld) [#/Vol]Ordere d By: Greg Ruiz on 01-25-2025 RBC (Bld) [#/Vol] 4.54 10*6/uL Low 4.6-6.2 [facility] Review by pathologistOrdered By: Greg Ruiz on 01-25-2025 Pathologist review Ed (Unsp spec) [Interp] Reviewed [facility] Comment on above: Previous reported re sult: Lois yung Edited by: WESTON on 01/30/25:1433 AMENDED REPORT [...] 01-25-2025 Creatinine [Mass/Vol] 3.33 mg/dL High 0.70-1.20 [facility] Serum glucose measurement (m ass/volume)Ordered By: Greg Ruiz on 01-25-2025 Glucose [Mass/Vol] 247 mg/dL High 70-99 [facility] Serum or plasma calcium angle urement (mass/volume)Ordered By: Greg Ruiz on 01-25-2025 Calcium [Mass/Vol] 8.5 mg/dL 7.6-11.0 [facility] Serum or plasma urea nitroge n measurement (mass/volume)Ordered By: Greg Ruiz on 01-25-2025 Urea nitrogen [Mass/Vol] 50 mg/dL High 4-19 [facility] Sodium levelOrdered By: Km Ruiz on 01-25-2025 Sodium [Moles/Vol] 137 mmol/L 133-145 [facility] Squamous epithelial cells de tection in urine sediment by light microscopyOrdered By: Greg Ruiz on 01-25-2025 Epithelial cells.squamous LM Ql (Urine sed) 0-5 SEEN /hpf 0-5 [facility] Urinalysis, Completeon 01-25 EPI,SQUAMOUS 0-5 SEEN Normal 0-5 [facility] Comment on above: Order Comment: HUI TER SPECIMEN Performed By: #### L 400.0001, M100.0 #### [facility] [address] [place], [address] BACTERIA 1+ /hpf Normal None Seen [facility] Comment on above: Order Comment: HUI TER SPECIMEN Performed By: #### L 400.0001, M100.2200 #### [facility] [address] [place], [address] RBC 25-50 SEEN Normal 0-5 [facility] Comment on above: Order Comment: HUI TER SPECIMEN Performed By: #### L 400.0001, M100.2200 #### [facility] [address] [place], [address] WBC >100 SEEN Normal 0-5 [facility] Comment on above: Order Comment: HUI TER SPECIMEN Performed By: #### L 400.0001, M100.0 #### [facility] [address] [place], [address] Mucus Ql (Urine sed) 0 SEEN Normal [facility] Comment on above: Order Comment: HUI TER SPECIMEN Performed By: #### L 400.0001, M100.0 #### [facility] [address] [place], [address] Urine blood detectionOrdered By: Greg Ruiz on 01-25-2025 Urine Occult Blood 250 /ul High Negative [facility] Urine clarityOrdered By: Maya Ruiz on 01-25-2025 Clarity (U) Turbid Clear [facility] Urine color determinationOrd ered By: Greg Ruiz on 01-25-2025 Color (U) Straw Yellow [facility] Urine cultureOrdered By: Maya Ruiz on 01-25-2025 Bacteria identified Cx Nom (U) Hafnia alvei Abnormal [facility] Urine glucose detectionOrder ed By: Greg Ruiz on 01-25-2025 Glucose Ql (U) 100 mg/dl High Normal [facility] Urine leukocyte esterase det ection by dipstickOrdered By: Greg Ruiz on 01-25-2025 Leukocyte esterase Test strip Ql (U) 500 /ul High Negative [facility] Urine pHOrdered By: Greg Ruiz on 01-25-2025 pH (U) 6.0 [pH] 5.0 - 8.0 [facility] Urine sediment bacteria coun t by microscopy (number/high power field)Ordered By: Greg Ruiz on 01-25-2025 Bacteria LM.HPF (Urine sed) [#/Area] 1 /[HPF] None Seen [facility] Urine specific gravity measu rementOrdered By: Greg Ruiz on 01-25-2025 Specific gravity (U) [Rel density] 1.010 1.002-1.030 [facility] Urine urobilinogen measureme ntOrdered By: Greg Ruiz on 01-25-2025 Urobilinogen Ql (U) Normal mg/dl Normal [facility] Urobilinogen Ql (U)Ordered B y: Greg Ruiz on 01-25-2025 Urine Urobilinogen Normal mg/dl Normal [facility] White blood cell (WBC) count Ordered By: Greg Ruiz on 01-25-2025 WBC (Bld) [#/Vol] 17.8 10*3/uL High 4.4-11.0 [facility] White blood cell countOrdere d By: Greg Ruiz on 01-25-2025 Urine WBC >100 SEEN /hpf 0-5 [facility] White blood cell count >100 SEEN /hpf 0-5 [facility] Renal Scan w/ Pharm Interven ton 01-21-2025 Renal Scan w/ Pharm Intervent [facility] Imaging Services [address] [place] [id number] Renal Scan w/ Pharm Intervent MR#: [id number] Acct: [id number] Name: LORI LYNCH Rep #: [id number] : 1945 M 79 From: Ramses gasca MD PCP: [facility] Status: REG CLI Study: Renal Scan w/ Pharm Intervent Date of Exam: Exam# [id number] Ordering Dr: KEISHAJANUARY SENIOR MILITARY ANALYST-C PROCEDURE: RENAL SCAN W/ PHARM INTERVENT 01/21/2025 [...] with the injection of Lasix. Reading Location: [place] [address] CC: JANUARY MASON VALDES; [facility] Real Estate Intern: Signed Normal [facility] Emergency Department Summary on 01-14-2025 Emergency Department Summary [facility] Medical Records Department [address] [place] [address] Emergency Department Summary 01/14/25 MR#: [id number] Acct: [id number] Name: LORI LYNCH Rep #: [id number] : 1945 79 From: Greg Ruiz MD PCP: [facility] Status:REG ER Location: ED HPI History [...] thinks that is why it is leaking. [facility] Medical History BPH with obstruction/lower urinary tract [...] mg t (more content not included)... Normal [facility] Emergency Department Summary on 11-13-2024 Emergency Department Summary [facility] Medical Records Department [address] [place] [address] Emergency Department Summary 11/13/24 MR#: [id number] Acct: [id number] Name: LORI LYNCH Rep #: [id number] : 1945 79 From: Rowdy Shearer DO PCP: [facility] Status:DEP ER Location: ED HPI History [...] a catheter replaced he presents for evaluation [facility] Medical History BPH with obstruction/lower urinary tract [...] Exam: Negat (more content not included)... Normal [facility] CBC W/Diff, Automatedon 08-27 PATH REV Reviewed Normal [facility] Comment on above: Result Comment: Leuk ocytosis. Microcytic anemia. Clinical correlation necessary. Trent Corea M.D. 09/06/24 AMENDED REPORT 09/06/24 1421 PATH REV previously reported as: February yung Performed By: #### L 500.4050, L300.3900, L100.0100, L503.6005 #### [facility] [address] [place], [address] Culture, Blood (WB)on 2023 CUB Blood cultures x2, f rom two different sites No growth in 5 days. Normal [facility] Comment on above: Performed By: #### L 100.0100, L300.3900, L300.4310 #### [facility] [address] [place], [address] Urine Cultureon 09-05-2024 [facility] Escherichia coli Wynne Count >100,000 Escherichia coli: REACTION Ampicillin Islt [...] TMP SMX Islt SEGUNDO <=20 S Normal [facility] Comment on above: Performed By: #### L 100.0100, L300.3900, L300.4310 #### [facility] [address] [place], [address] URC Escherichia coli Wynne Count >100,000 Escherichia coli: REACTION Ampicillin Islt [...] TMP SMX Islt SEGUNDO <=20 S Normal [facility] Comment on above: Performed By: #### L 400.0001, M1 #### [facility] [address] [facility] [place], [address] Comprehensive Metabolic Prof [facility] 09-03-2024 Albumin [Mass/Vol] 2.8 g/dL Low 3.2-5.0 [facility] Comment on above: Performed By: #### L 400.0001, M1 #### [facility] [address] [place], [address] Albumin/Globulin [Mass ratio] 0.7 {ratio} Low 0.9-2.4 [facility] Comment on above: Performed By: #### L 400.0001, M1 #### [facility] [address] [place], [address] ALK P 109 U/L Normal 45-117 [facility] Comment on above: Performed By: #### L 400.0001, M1 #### [facility] [address] [place], [address] ALT [Catalytic activity/Vol] 10 U/L Low 16-61 [facility] Comment on above: Performed By: #### L 400.0001, #### [facility] [address] [place], [address] AST [Catalytic activity/Vol] 16 U/L Normal 15-37 [facility] Comment on above: Performed By: #### L 400.0001, #### [facility] [address] [place], [address] Bilirubin [Mass/Vol] 0.30 mg/dL Normal 0.20-1.00 [facility] Comment on above: Result Comment: For patients on eltrombopag therapy, use of Dimension [place] TBIL is not recommended. Performed By: #### L 400.0001, #### [facility] [address] [place], [address] BUN/CRE 17.1 RATIO Normal 10-20 [facility] Comment on above: Performed By: #### L 400.0001, #### [facility] [address] [place], [address] CA,Total 8.6 mg/dL Normal 8.5-10.1 [facility] Comment on above: Performed By: #### L 400.0001, #### [facility] [address] [place], [address] Chloride [Moles/Vol] 112 mmol/L High 98-107 [facility] Comment on above: Performed By: #### L 400.0001, #### [facility] [address] [place], [address] CO2 [Moles/Vol] 23.0 mmol/L Normal 21.0-32.0 [facility] Comment on above: Performed By: #### L 400.0001, #### [facility] [address] [place], [address] Creatinine [Mass/Vol] 1.87 mg/dL High 0.70-1.30 [facility] Comment on above: Result Comment: The validity of the calculated GFR GFRAA in patients over 70 years has not been determined. Clinical correlation is essential. Performed By: #### L 400.0001, .2199 #### [facility] [address] [place], [address] ECRCL 36.61 ml/min Normal [facility] Comment on above: Performed By: #### L 400.0001, .2199 #### [facility] [address] [place], [address] EST GFR - AA 45 mL/min Low >60 [facility] Comment on above: Result Comment: Afri can Ug[place] GFR Calc Performed By: #### L 400.0001, #### [facility] [address] [place], [address] GAP 6 Normal 5-15 [facility] Comment on above: Performed By: #### L 400.0001, #### [facility] [address] [place], [address] GFR/1.73 sq M.predicted among non-blacks MDRD (S/P/Bld) [Vol rate/Area] 37 mL/min/{1.73_m2} Low >60 [facility] Comment on above: Result Comment: Non- GFR Calc Performed By: #### L 400.0001, .2199 #### [facility] [address] [place], [address] Globulin (S) [Mass/Vol] 4.1 g/dL Normal 2.2-4.2 [facility] Comment on above: Performed By: #### L 400.0001, .2199 #### [facility] [address] [place], [address] Glucose [Mass/Vol] 241 mg/dL High 74-106 [facility] Comment on above: Result Comment: Gluc ose result greater than or equal to 200 mg/dL suggests DIABETES MELLITUS per A.D.A. criteria. Performed By: #### L 400.0001, M1.2199 #### [facility] [address] [place], [address] Potassium [Moles/Vol] 4.1 mmol/L Normal 3.5-5.1 [facility] Comment on above: Performed By: #### L 400.0001, .2199 #### [facility] [address] [place], [address] Sodium [Moles/Vol] 141 mmol/L Normal 136-145 [facility] Comment on above: Performed By: #### L 400.0001, #### [facility] [address] [place], [address] T PROT 6.9 g/dL Normal 6.4-8.2 [facility] Comment on above: Performed By: #### L 400.0001, .2199 #### [facility] [address] [place], [address] Urea nitrogen [Mass/Vol] 32 mg/dL High 7-18 [facility] Comment on above: Performed By: #### L 400.0001, #### [facility] [address] [place], [address] Emergency Department Summary on 09-03-2024 Emergency Department Summary [facility] Medical Records Department [address] [place] [address] Emergency Department Summary 09/03/24 MR#: [id number] Acct: [id number] Name: LORI LYNCH Neri Rep #: [id number] : 1945 79 From: Franki Medina DO PCP: [facility] Status:DEP ER Location: ED HPI History [...] for evaluation. He does see Dr. Mckoy [facility] Medical History Diabetes High cholesterol HTN (hypertension) [...] 09/03/24 13:2 (more content not included)... Normal [facility] Lactic Acidon 09-03-2024 Lactate [Moles/Vol] 1.2 mmol/L Normal 0.4-1.9 [facility] Comment on above: Order Comment: Y Performed By: #### L 400.0001, M100.2200 #### [facility] Laboratory [address] [place], [address] Partial Thromboplast Timeon 09-03-2024 aPTT Coag (Bld) [Time] 28.0 s Normal 24.1-36.2 [facility] Comment on above: Order Comment: REDRA W. PREVIOUS SPECIMEN REJECTED DUE TO SPECIMEN BEING HEMOLYZED. 09/03/241432 Jd Baron Performed By: #### L 300.4310, L300.3900 #### [facility] [address] [place], [address] Prothrombin Time w/INRon INR Coag (PPP) [Relative time] 1.1 {INR} Normal [facility] Comment on above: Order Comment: REDRA W. PREVIOUS SPECIMEN REJECTED DUE TO SPECIMEN BEING HEMOLYZED. 09/03/241432 Jd Baron Performed By: #### L 300.4310, L300.3900 #### [facility] [address] [place], [address] PT Coag (PPP) [Time] 14.6 s Normal 11.7-14.9 [facility] Comment on above: Order Comment: REDRA W. PREVIOUS SPECIMEN REJECTED DUE TO SPECIMEN BEING HEMOLYZED. 09/03/241432 Jd Baron Performed By: #### L 300.4310, L300.3900 #### [facility] [address] [place], [address] INR Normal [facility] Comment on above: Result Comment: This specimen has been REJECTED due to Laboratory criteria: Hemolyzed. ED STAFF has been notified of need of recollection. 09/03/24 1432 Jd Silva Stoner Performed By: #### L 400.0001, M100.0 #### [facility] [address] [place], [address] PROTIME Normal 11.7-14.9 [facility] Comment on above: Result Comment: This specimen has been REJECTED due to Laboratory criteria: Hemolyzed. ED STAFF has been notified of need of recollection. 09/03/24 1432 Jd Glaserr Performed By: #### L 400.0001, M100.0 #### [facility] [address] [place], [address] Urinalysis, Completeon 09-03 BACTERIA 1+ /hpf Normal None Seen [facility] Comment on above: Order Comment: Micro scopic field is filled. Other elements may be obscured. CATHETER SPECIMEN Performed By: #### L 400.0001, M100.2199 #### [facility] [address] [place], [address] RBC 5-10 SEEN Normal 0-5 [facility] Comment on above: Order Comment: Micro scopic field is filled. Other elements may be obscured. CATHETER SPECIMEN Performed By: #### L 400.0001, M100.0 #### [facility] [address] [place], [address] WBC >100 SEEN Normal 0-5 [facility] Comment on above: Order Comment: Micro scopic field is filled. Other elements may be obscured. CATHETER SPECIMEN Performed By: #### L 400.0001, M100.2200 #### [facility] [address] [place], [address] EPI,SQUAMOUS 0 SEEN Normal 0-5 [facility] Comment on above: Order Comment: Micro scopic field is filled. Other elements may be obscured. CATHETER SPECIMEN Performed By: #### L 400.0001, M100.2200 #### [facility] [address] [place], [address] Mucus Ql (Urine sed) 0 SEEN Normal [facility] Comment on above: Order Comment: Micro scopic field is filled. Other elements may be obscured. CATHETER SPECIMEN Performed By: #### L 400.0001, M100.2200 #### [facility] [address] [place], [address] 36on 12-05-2022 36 Patient called in an [...] but states he needs [place]. [place] switched [place] per patient request. [facility] 36 Rx for tolterodine (Detrol LA) sent to [facility] in [place]. Please advise him it could take 6-8 [...] is not helping. Per previous TE's the [place] will not pay for myrbetriq. Patient aware to contact PCP if current gas pain is persistent. Patient voiced understanding. [place] [address] Name of caller: Phil Contact phone number: [phone] Relationship to Patient: patient Provider: Rabia Practice: Uro Chief Complaint/Reason for Call: Pt stating that he has been having gas pain with flatulence. He has tried beano, gas x and nothing has worked. He wants to know if something can be called into [facility] on [address] ph [phone]. Please call to let him know something not too expensive, by the way, will be called in for him or discuss further. Best time of day caller can be reached: Patient advised that office/PCP has 24-48 business hours to return their call: [place] [address]on 11-05-2022 36 Patient informed of medication increase and needing 6 weeks follow up and PVR. Patient verbalized understanding and have no further questions or concerns at this time. [facility] 36on 11-04-2022 36 Okay increased trosp ium to 20mg BID but still needs someone to schedule an appointment in 6 weeks to assess medication effectiveness and for PVR check. Thanks [place] [address] Called and spoke wit h patient. [facility] states [facility] Myrbet[facility]. He wants to know if he can try a stronger dose of trospium instead. Please advise. [facility] 36 Rx sent to [place] [employer] for Myrbetric 25 mg for patient to [...] 36 Lvm that script was sent into [facility] pharmacy today. Call if he has any further questions or concerns. [facility] 36 Sent. Please let irene culver know [facility] 36 Pt called in and sta stephanie, Dr Camarillo was supposed to send in Trospium to the [facility] last Friday, but the [place] says they haven't received anything yet. Someone needs to get their act together! I need this medicine! You need to let me know what's going on! Upon investigation, Trospium appears to have been sent to [facility] in [place]. Pt would prefer Rx sent to [facility]. Pharmacy in chart and below. [facility] - [place], [place] - [address] [[id number]] Routing to Dr Camarillo and APPs to send to [facility]. Thank you. [facility] [...] stated that they are currently in the state [facility]. If the patient is a minor, permission [...] Medical History: Diagnosis Date Atrial fibrillation (CMS/HCC) ([facility]) 2021 with pericardial effusion drainage Diabetes mellitus ([facility]) History of kidney cancer 2009 Hypertension Lung cancer ([facility]) SBRT 06/2021 (per [place] records) Pericardial effusion 03/15/2022 Drained ([place]) Sleep apnea cpap Past Surgical History: Past Surgical History: Procedure Laterality Date CYSTOSCOPY prostrate aquablation ROTATOR CUFF REPAIR addie in past Medications Prior to Admission medications Medication Sig Start Date End Date Taking? Authorizing Provider AMLODIPINE BESYLATE PO Take by mouth. Historical Provider, finasteride (Proscar) 5 MG tablet Take 5 mg by mouth in the morning. Do not crush, chew, or split. Historical ProviderMD glipiZIDE (Glucotrol) 10 MG tablet Take 10 [...] mg by mouth in the morning. Historical ProviderMD trospium (Sanctura) 20 MG tablet Take 1 tablet (20 mg) by mouth daily. 10/17/22 12/16/22 Kari Raymundo APRN - SENIOR MILITARY ANALYST Vibegron (Gemtesa) 75 MG tablet Take 75 [...] mirebegron. Cx: <10K (more content not included)... Normal [facility] 36on 10-17-2022 36 Please notify the patient Gemtesa and Myrbetriq not covered. I recommend he start trospium 20 mg daily, if medication improved symptoms some will increase to twice daily after 4 weeks. [facility] 36 Spoke with [facility] may prior authorization, they sate that both Gemtesa and Myrbetriq are excluded from the patients prescription drug benefit. Therefore, they will not allow for authorization to be submitted. [address] 10-15-2022 36 Notified patient deirdre t medication was sent to [place]. Pt expressed thanks for sending it there. Advised pt to call office if any questions or concerns. [place] [address] Rx sent to new pharmacy. [place] [address] Pt called in [facility] stating that script sent to [facility] pharmacy Vibegron 75 mg PO Daily is $480 and too expensive. Pt would like script to be changed to [place] in [place] so that he only has to pay the co-pay. Please advise. Thank you. [place] [address] Patient informed of message below. [place] [address] ----- Message from TALITA Johnson CNP sent at 10/14/2022 4:45 PM EST ----- Please inform patient that urine culture was negative for infection. [place] [address] ----- Message from TALITA Johnson CNP sent at 10/14/2022 4:45 PM EST ----- Please inform patient that urine culture was negative for infection. [address] 10-14-2022 36 Gemtesa 75 mg is prescribed, please complete PA for this drug. Thanks! [address] 10-11-2022 36 Both medications tasha l have the same copay for the patient through his insurance. However, both medications require a PA. Please clarify which medication is preferred for the patient and we will submit authorization. Thank you! [place] [address] I sent in alternativ e medication. Would Gemtesa be cheaper for the patient rather than Myrbetriq? [address] 10-10-2022 36 Please advise on alternative medication for patient [place] [address] Name of caller: J Luis rosen Contact phone number: [phone] Relationship to Patient: patient Provider: NP. Paco [...] understanding. No other questions at this time. Normal [facility] 36 S: Patient spoke wit h [facility] nurse regarding frequency B: Onset [...] than usual (i.e., frequency) Protocols used: Urinary [id number]-[id number] Normal [facility] Office Visiton 10-10-2022 Follow-up visit [id number] SyedTushar linder 1945 M Date Provider Department Center 10/10/2022 [id number] GELLER [facility] URO None No family history on file Level of Service:49578 SD OFFICE/OUTPATIENT ESTABLISHED MOD MDM 30-39 MIN Reason for Visit and Comments: Urinary Frequency [002844] - Pt has been having frequency every 15-25 minutes since Aquablation surgery, pt denies burning or blood in the urine Normal [facility] Progress Noteon 10-10-2022 Progress Note PVR- 0 mL Normal [facility] Progress Note Paco Geller, STEFANIA, AP RN 10/10/2022 at 3:31 PM Urology Office Visit [facility] [address] [facility] [address] Dept: [phone] Dept Loc: [phone] PATIENT NAME: Lori Lynch DATE OF : [...] 8 days (around 10/18/2022). Paco Geller, STEFANIA, ELECTRONIC INSTALLER, [facility] Subjective: Mr. Lynch is a 77 [...] Medical History: Diagnosis Date Atrial fibrillation (CMS/HCC) ([facility]) 2021 with pericardial effusion drainage Diabetes mellitus ([facility]) History of kidney cancer 2009 Hypertension Lung cancer ([facility]) SBRT 06/2021 (per [place]) Pericardial effusion 03/15/2022 Drained ([place] Sleep apnea cpap Past Surgical History: Past [...] [facility] 36[place] 09-16-2022 36 Patient left VM stat ing he had aquablation on 08/22/22. [...] [facility] [place] Office Visiton 08-27-2022 Follow-up visit [id number] Tushar Lynch 1945 M Date Provider Department Center 08/27/2022 [id number], [facility] URO None No family history on file Level of Service:74023 SD OFFICE/OUTPT VISIT,PROCEDURE ONLY Reason for Visit and Comments: Benign Prostatic Hypertrophy [[id number]] - Void Trial post Aquablation [facility] Creatinineon 08-23-2022 Creatinine [Mass/Vol] 0.91 mg/dL Normal 0.52-1.25 [facility] Comment on above: Performed By: #### C RTN3 #### [address] [address] GFR/1.73 sq M.predicted among blacks MDRD (S/P/Bld) [Vol rate/Area] mL/min/{1.73_m2} Normal >60 [facility] Comment on above: Performed By: #### C RTN3 #### [facility] [address] [place] [address] GFR/1.73 sq M.predicted among non-blacks MDRD (S/P/Bld) [Vol rate/Area] 80.4 mL/min/{1.73_m2} Normal >60 [facility] Comment on above: Result Comment: KDIG O [...] By: #### C RTN3 #### [facility] [address] [place] [address] Glucose,Bedsideon 08-23-2022 Glucose [Mass/Vol] 216 mg/dL High 70-100 [facility] Comment on above: Result Comment: Test performed by glucose meter. Results may be 10%-15% lower than serum/plasma values. (CLIA ID [id number]) Performed By: #### B GLU #### [facility] [address] [place] [address] Glucose,Bedsideon 08-22-2022 Glucose [Mass/Vol] 192 mg/dL High 70-100 [facility] Comment on above: Result Comment: Test performed by glucose meter. Results may be 10%-15% lower than serum/plasma values. (CLIA ID [id number]) Performed By: #### B GLU #### [facility] [address] [place] [address] Glucose [Mass/Vol] 176 mg/dL High 70-100 [facility] Comment on above: Result Comment: Test performed by glucose meter. Results may be 10%-15% lower than serum/plasma values. (CLIA ID [id number]) Performed By: #### B GLU #### [facility] [address] [place] [address] Glucose [Mass/Vol] 130 mg/dL High 70-100 [facility] Comment on above: Result Comment: Test performed by glucose meter. Results may be 10%-15% lower than serum/plasma values. (CLIA ID [id number]) Performed By: #### B GLU #### [place] [address] [place] [address] Op Noteon 08-22-2022 Op Note Operative Note PRE-OP DIAGNOSIS: BPH with obstruction. POST-OP DIAGNOSIS: Same OPERATION: Cystoscopy, Prostate Aquablation (CPT 0421T) SURGEON: Heri Camarillo M.D. , Franc Zambrano M.D. CEO AND PRESIDENT: ANESTHESIA: General BLOOD LOSS:<20cc MEDICATIONS: Ancef 2 [...] and to note prostate anatomy. The 24 [place]vian AQUABEAM Handpiece tip was inserted into the [...] bleeders were controlled. Hemostasis was obtained., 24 [place]ian Simplastic catheter was inserted, balloon inflated to 30 cc. Diego irrigated light pink. Continuous bladder irrigation was started. Ultrasound probe was then removed. Belladonna & opium suppository is not available at this time The patient was safely moved to the transportation cart, and transported to the recovery area in stable condition. Heri Camarillo M.D. 08/22/2022 Normal [facility] CULTURE URINEon 08-17-2022 CULTURE URINE CULTURE URINE --> Status: F Normal urogenital chanda present. Normal [facility] Comment on above: Performed By: #### C /UR #### [address] Hemoglobin AND Hematocriton 08-15-2022 Hematocrit (Bld) [Volume fraction] 46.1 % Normal 40.0-52.0 [facility] Comment on above: Performed By: #### H GHCT #### [address] Hemoglobin (Bld) [Mass/Vol] 15.1 g/dL Normal 13.0-18.0 [facility] Comment on above: Performed By: #### H GHCT #### [address] Hemoglobin and HematocritOrd ered By: Thuy Mercedes on 08-15-2022 Hematocrit (Bld) [Volume fraction] 46.1 % 40.0 - 52.0 % [facility] Hemoglobin (Bld) [Mass/Vol] 15.1 g/dL 13.0 - 18.0 g/dL [facility] Hemoglobin and Hematocriton 08-15-2022 Test Performed by [facility], [address] [place] [id number] [place] [address] LAB Absolute lymphocyte counton 03-14-2022 Lymphocytes Auto (Unsp spec) [#/Vol] 2.42 10*3/uL 0.83-4.51 [facility] Work Phone: Basophil percentageon 2021 Basophils/100 WBC (Bld) 0.8 % 0-1 [facility] Work Phone: Chloride [Moles/Vol] 102 mmol/L 98-107 [facility] Work Phone: Eosinophils/100 WBC (Bld) 4.1 % 0-5 [facility] Work Phone: [phone] Glucose [Mass/Vol] 179 mg/dL 74-106 [facility] Work Phone: Comment on above: Fasting Glucose resu lt greater than or equal to 126 mg/dL suggests DIABETES MELLITUS per A.D.A. criteria. Neutrophils (Bld) [#/Vol] 5.7 10*3/uL 2.0-7.7 [facility] Work Phone: Neutrophils/100 WBC (Bld) 55.7 % 47-70 [facility] Work Phone: Potassium [Moles/Vol] 4.1 mmol/L 3.5-5.1 [facility] Work Phone: [phone] Sodium [Moles/Vol] 139 mmol/L 136-145 [facility] Work Phone: [phone] WBC (Bld) [#/Vol] 10.2 10*3/uL 4.4-11.0 [facility] Work Phone: Blood erythrocytes count (nu mber/volume)on 03-14-2022 RBC (Bld) [#/Vol] 5.36 10*6/uL 4.6-6.2 [facility] Work Phone: Blood hemoglobin measurement (mass/volume)on 03-14-2022 Hemoglobin (Bld) [Mass/Vol] 15.0 g/dL 13.0-16.5 [facility] Work Phone: [phone] Blood lymphocytes/100 leukoc yteson 03-14-2022 Lymphocytes/100 WBC (Bld) 23.7 % 19-41 [facility] Work Phone: Blood manual differential co mment interpretation (narrative result)on 03-14-2022 Manual differential comment Ed (Bld) [Interp] SCANNED [facility] Work Phone: [phone] Blood monocytes/100 leukocyt eson 03-14-2022 Monocytes/100 WBC (Bld) 15.2 % 0-10 [facility] Work Phone: Blood platelet mean volumeon 03-14-2022 Platelet mean volume (Bld) [Entitic vol] 10.7 fL 6.2-12.0 [facility] Work Phone: Determination of erythrocyte mean corpuscular volume (MCV)on 03-14-2022 MCV (RBC) [Entitic vol] 85.8 fL 80-94 [facility] Work Phone: Hematocrit Auto (Bld) [Volum e fraction]on 03-14-2022 Hematocrit (Bld) [Volume fraction] 46.0 % 40-54 [facility] Work Phone: Laboratory - Chemistry and C hemistry - challengeon 03-14-2022 CO2 [Moles/Vol] 30.0 mmol/L 21.0-32.0 [facility] Work Phone: Urea nitrogen/Creatinine [Mass ratio] 17.6 mg/mg 10-20 [facility] Work Phone: Laboratory - Hematology and Cell countson 03-14-2022 Erythrocyte distribution width (RBC) [Entitic vol] 52.6 fL 35.1-43.9 [facility] Work Phone: Erythrocyte distribution width (RBC) [Ratio] 16.9 % 11.6-14.6 [facility] Work Phone: Immature granulocytes/100 WBC (Bld) 0.500 % 0.0-0.9 [facility] Work Phone: Comment on above: IG% - Immature Granu locytes (promyelocytes, myelocytes and metamyelocytes) > 1% indicates that a LEFT SHIFT is Present. MCH (RBC) [Entitic mass] 28.0 pg 27.0-32.0 [facility] Work Phone: Nucleated RBC/100 WBC (Bld) [Ratio] 0 % 0-5 [facility] Work Phone: MCHC Auto (RBC) [Mass/Vol]on 03-14-2022 MCHC (RBC) [Mass/Vol] 32.6 g/dL 32-36 [facility] Work Phone: No Panel Informationon 03-14 Estimated Creatinine Clearance Calc 47.88 ml/min [facility] Work Phone: Estimated GFR (MDRD) Amer 72 mL/min >60 [facility] Work Phone: Comment on above: GFR Calc Estimated GFR (MDRD) Non-Af Amer 59 mL/min >60 [facility] Work Phone: Comment on above: Non- GFR Calc Troponin I High Sensitivity 12 pg/mL 3.0-78.0 [facility] Work Phone: Comment on above: Please Note: New Reyna t Units and Gender Specific Reference Ranges. For more information see Policy Stat Procedure [place] High Sensitivity Troponin (TNIH) and attachments. Platelets bldon 03-14-2022 Platelets (Bld) [#/Vol] 173 10*3/uL 150-450 [facility] Work Phone: Serum or plasma calcium angle urement (mass/volume)on 03-14-2022 Calcium [Mass/Vol] 9.4 mg/dL 8.5-10.1 [facility] Work Phone: Serum or plasma creatinine m easurement (mass/volume)on 03-14-2022 Creatinine [Mass/Vol] 1.25 mg/dL 0.70-1.30 [facility] Work Phone: Comment on above: The validity of the calculated GFR & GFRAA in patients over 70 years has not been determined. Clinical correlation is essential. Serum or plasma urea nitroge n measurement (mass/volume)on 03-14-2022 Urea nitrogen [Mass/Vol] 22 mg/dL 7-18 [facility] Work Phone: Thin prep Papanicolaou smear with manual screeningon 03-14-2022 Thin prep Papanicolaou smear with manual screening 7 5-15 [facility] Work Phone: Vital Signs Date Time Vital Sign Value Performing Clinician Justine narayanan 08-08-2025 14:42-0400 Body height 172.72 cm [facility] 08-08-2025 14:42-0400 Body mass index (BMI) [Ratio] 33 kg/m2 [facility] 08-08-2025 14:42-0400 Body temperature 99 [degF] [facility] 08-08-2025 14:42-0400 Body weight 98.42 kg [facility] 08-08-2025 14:42-0400 Diastolic blood pressure 68 mm[Hg] [facility] 08-08-2025 14:42-0400 Heart rate 68 /min [facility] 08-08-2025 14:42-0400 Respiratory rate 18 /min [facility] 08-08-2025 14:42-0400 SaO2% (BldA) [Mass fraction] 98 % [facility] 08-08-2025 14:42-0400 Systolic blood pressure 134 mm[Hg] [facility] 06-24-2025 12:35-0400 Body temperature 98 [degF] [facility] 06-24-2025 12:35-0400 Diastolic blood pressure 81 mm[Hg] [facility] 06-24-2025 12:35-0400 Heart rate 87 /min [facility] 06-24-2025 12:35-0400 Respiratory rate 16 /min [facility] 06-24-2025 12:35-0400 SaO2% (BldA) [Mass fraction] 99 % [facility] 06-24-2025 12:35-0400 Systolic blood pressure 149 mm[Hg] [facility] 06-24-2025 10:54-0400 Body height 172.72 cm [facility] 06-24-2025 10:54-0400 Body mass index (BMI) [Ratio] 32.5 kg/m2 [facility] 06-24-2025 10:54-0400 Body weight 97.1 kg [facility] 06-23-2025 22:46-0400 Body temperature 97.8 [degF] [facility] 06-23-2025 22:46-0400 Diastolic blood pressure 77 mm[Hg] [facility] 06-23-2025 22:46-0400 Heart rate 66 /min [facility] 06-23-2025 22:46-0400 Respiratory rate 14 /min [facility] 06-23-2025 22:46-0400 SaO2% (BldA) [Mass fraction] 95 % [facility] 06-23-2025 22:46-0400 Systolic blood pressure 132 mm[Hg] [facility] 06-23-2025 21:51-0400 Body height 172.72 cm [facility] 06-23-2025 21:51-0400 Body mass index (BMI) [Ratio] 32.3 kg/m2 [facility] 06-23-2025 21:51-0400 Body weight 96.61 kg [facility] 05-26-2025 20:25-0400 Body temperature 98.2 [degF] [facility] 05-26-2025 20:25-0400 Diastolic blood pressure 69 mm[Hg] [facility] 05-26-2025 20:25-0400 Heart rate 65 /min [facility] 05-26-2025 20:25-0400 Respiratory rate 16 /min [facility] 05-26-2025 20:25-0400 SaO2% (BldA) [Mass fraction] 97 % [facility] 05-26-2025 20:25-0400 Systolic blood pressure 140 mm[Hg] [facility] 05-26-2025 18:22-0400 Body height 172.72 cm [facility] 05-23-2025 14:00-0400 Diastolic blood pressure 66 mm[Hg] [facility] 05-23-2025 14:00-0400 Heart rate 60 /min [facility] 05-23-2025 14:00-0400 Respiratory rate 13 /min [facility] 05-23-2025 14:00-0400 SaO2% (BldA) [Mass fraction] 94 % [facility] 05-23-2025 14:00-0400 Systolic blood pressure 133 mm[Hg] [facility] 05-23-2025 11:15-0400 Inhaled oxygen flow rate 1 L/min [facility] 05-23-2025 09:27-0400 Body mass index (BMI) [Ratio] 32.6 kg/m2 [facility] 05-23-2025 09:27-0400 Body temperature 97 [degF] [facility] 05-23-2025 09:27-0400 Body weight 97.52 kg [facility] 05-09-2025 19:44-0400 Body height 172.72 cm [facility] 05-09-2025 19:44-0400 Body mass index (BMI) [Ratio] 27.4 kg/m2 [facility] 05-09-2025 19:44-0400 Body temperature 98 [degF] [facility] 05-09-2025 19:44-0400 Body weight 81.9 kg [facility] 05-09-2025 19:44-0400 Diastolic blood pressure 64 mm[Hg] [facility] 05-09-2025 19:44-0400 Heart rate 81 /min [facility] 05-09-2025 19:44-0400 Respiratory rate 18 /min [facility] 05-09-2025 19:44-0400 SaO2% (BldA) [Mass fraction] 96 % [facility] 05-09-2025 19:44-0400 Systolic blood pressure 147 mm[Hg] [facility] 05-08-2025 09:28-0400 Body temperature 98.1 [degF] [facility] 05-08-2025 09:28-0400 Diastolic blood pressure 89 mm[Hg] [facility] 05-08-2025 09:28-0400 Heart rate 72 /min [facility] 05-08-2025 09:28-0400 Respiratory rate 18 /min [facility] 05-08-2025 09:28-0400 SaO2% (BldA) [Mass fraction] 99 % [facility] 05-08-2025 09:28-0400 Systolic blood pressure 157 mm[Hg] [facility] 05-08-2025 07:11-0400 Body height 172.72 cm [facility] 05-08-2025 07:11-0400 Body mass index (BMI) [Ratio] 33 kg/m2 [facility] 05-08-2025 07:11-0400 Body weight 98.7 kg [facility] 04-29-2025 16:39-0400 Body temperature 98.6 [degF] [facility] 04-29-2025 16:39-0400 Diastolic blood pressure 62 mm[Hg] [facility] 04-29-2025 16:39-0400 Heart rate 80 /min [facility] 04-29-2025 16:39-0400 Respiratory rate 14 /min [facility] 04-29-2025 16:39-0400 SaO2% (BldA) [Mass fraction] 95 % [facility] 04-29-2025 16:39-0400 Systolic blood pressure 144 mm[Hg] [facility] 04-29-2025 15:43-0400 Body height 172.72 cm [facility] 04-29-2025 15:43-0400 Body mass index (BMI) [Ratio] 32.9 kg/m2 [facility] 04-29-2025 15:43-0400 Body weight 98.2 kg [facility] 04-29-2025 14:20-0400 Body temperature 97.8 [degF] [facility] 04-29-2025 14:20-0400 Diastolic blood pressure 67 mm[Hg] [facility] 04-29-2025 14:20-0400 Heart rate 76 /min [facility] 04-29-2025 14:20-0400 Respiratory rate 15 /min [facility] 04-29-2025 14:20-0400 SaO2% (BldA) [Mass fraction] 95 % [facility] 04-29-2025 14:20-0400 Systolic blood pressure 135 mm[Hg] [facility] 04-29-2025 13:03-0400 Body height 172.72 cm [facility] 04-29-2025 13:03-0400 Body mass index (BMI) [Ratio] 32.9 kg/m2 [facility] 04-29-2025 13:03-0400 Body weight 98.23 kg [facility] 03-02-2025 11:58-0400 Body temperature 98.4 [degF] [facility] 03-02-2025 11:58-0400 Diastolic blood pressure 74 mm[Hg] [facility] 03-02-2025 11:58-0400 Heart rate 59 /min [facility] 03-02-2025 11:58-0400 Respiratory rate 18 /min [facility] 03-02-2025 11:58-0400 SaO2% (BldA) [Mass fraction] 98 % [facility] 03-02-2025 11:58-0400 Systolic blood pressure 130 mm[Hg] [facility] 03-02-2025 09:46-0400 Body height 172.72 cm [facility] 03-02-2025 09:46-0400 Body mass index (BMI) [Ratio] 33.5 kg/m2 [facility] 03-02-2025 09:46-0400 Body weight 100.24 kg [facility] 01-25-2025 17:43-0400 Body temperature 98.2 [degF] [facility] 01-25-2025 17:43-0400 Diastolic blood pressure 77 mm[Hg] [facility] 01-25-2025 17:43-0400 Heart rate 74 /min [facility] 01-25-2025 17:43-0400 Respiratory rate 19 /min [facility] 01-25-2025 17:43-0400 SaO2% (BldA) [Mass fraction] 98 % [facility] 01-25-2025 17:43-0400 Systolic blood pressure 148 mm[Hg] [facility] 01-25-2025 15:00-0400 Diastolic blood pressure 69 mm[Hg] [facility] 01-25-2025 15:00-0400 Heart rate 76 /min [facility] 01-25-2025 15:00-0400 Respiratory rate 22 /min [facility] 01-25-2025 15:00-0400 SaO2% (BldA) [Mass fraction] 95 % [facility] 01-25-2025 15:00-0400 Systolic blood pressure 130 mm[Hg] [facility] 01-25-2025 11:19-0400 Body height 172.72 cm [facility] 01-25-2025 11:19-0400 Body mass index (BMI) [Ratio] 33.7 kg/m2 [facility] 01-25-2025 11:19-0400 Body temperature 98.7 [degF] [facility] 01-25-2025 11:19-0400 Body weight 100.7 kg [facility] 01-14-2025 14:43-0400 Body temperature 97.8 [degF] [facility] 01-14-2025 14:43-0400 Diastolic blood pressure 79 mm[Hg] [facility] 01-14-2025 14:43-0400 Heart rate 83 /min [facility] 01-14-2025 14:43-0400 Respiratory rate 14 /min [facility] 01-14-2025 14:43-0400 SaO2% (BldA) [Mass fraction] 98 % [facility] 01-14-2025 14:43-0400 Systolic blood pressure 149 mm[Hg] [facility] 01-14-2025 11:38-0400 Body height 172.72 cm [facility] 01-14-2025 11:38-0400 Body mass index (BMI) [Ratio] 33.5 kg/m2 [facility] 01-14-2025 11:38-0400 Body weight 100.19 kg [facility] 11-13-2024 23:22-0500 Body temperature 98 [degF] [facility] 11-13-2024 23:22-0500 Diastolic blood pressure 77 mm[Hg] [facility] 11-13-2024 23:22-0500 Heart rate 81 /min [facility] 11-13-2024 23:22-0500 Respiratory rate 16 /min [facility] 11-13-2024 23:22-0500 SaO2% (BldA) [Mass fraction] 99 % [facility] 11-13-2024 23:22-0500 Systolic blood pressure 144 mm[Hg] [facility] 11-13-2024 22:02-0500 Body mass index (BMI) [Ratio] 33.5 kg/m2 [facility] 11-13-2024 22:02-0500 Body weight 100.24 kg [facility] 08-15-2022 15:37-0400 Body height 175.3 cm Heri Camarillo MD Work Phone: [facility] 08-15-2022 15:37-0400 Body mass index (BMI) [Ratio] 35.09 kg/m2 Heri Camarillo MD Work Phone: [facility] 08-15-2022 15:37-0400 Body temperature 97 [degF] Heri Camarillo MD Work Phone: [facility] 08-15-2022 15:37-0400 Body weight 107.78 kg Heri Camarillo MD Work Phone: [facility] 08-15-2022 15:37-0400 Diastolic blood pressure 55 mm[Hg] Heri Camarillo MD Work Phone: [facility] 08-15-2022 15:37-0400 Heart rate 65 /min Heri Camarillo MD Work Phone: [facility] 08-15-2022 15:37-0400 Respiratory rate 16 /min Heri Camarillo MD Work Phone: [facility] 08-15-2022 15:37-0400 SaO2% (BldA) [Mass fraction] 97 % Heri Camarillo MD Work Phone: [facility] 08-15-2022 15:37-0400 Systolic blood pressure 129 mm[Hg] Heri Camarillo MD Work Phone: [facility] 03-14-2022 13:32-0400 Diastolic blood pressure 81 mm[Hg] [facility] Work Phone: 03-14-2022 13:32-0400 Heart rate 64 /min [facility] Work Phone: 03-14-2022 13:32-0400 Respiratory rate 17 /min [facility] Work Phone: 03-14-2022 13:32-0400 SaO2% (BldA) [Mass fraction] 94 % [facility] Work Phone: 03-14-2022 13:32-0400 Systolic blood pressure 135 mm[Hg] [facility] Work Phone: 03-14-2022 12:25-0400 Body height 172.72 cm [facility] Work Phone: 03-14-2022 12:25-0400 Body mass index (BMI) [Ratio] 35.7 kg/m2 [facility] Work Phone: 03-14-2022 12:25-0400 Body temperature 98.1 [degF] [facility] Work Phone: 03-14-2022 12:25-0400 Body weight 106.59 kg [facility] Work Phone: Encounters Encounter Date Encounter Type Care Provider Facility Start: 09-01-2025 [facility] Facility:[facility] Start: 08-30-2025 End: 08-30-2025 [facility] Facility:[facility] Start: 08-23-2025 ambulatory [facility] Facility: [facility] Start: 08-16-2025 ambulatory [facility] Facility: [facility] Start: 08-16-2025 [facility] Facility:[facility] Start: 08-08-2025 End: 08-08-[address] Adolfo Tubbs [facility] Work Phone: Start: 08-08-2025 End: 08-08-2025 [facility] Start: 07-27-2025 Non-patient / Non-visit Rebecca Yanez [facility] Work Phone: Start: 07-27-2025 [facility] Start: 07-26-2025 End: 07-26-2025 [facility] Start: 07-26-2025 End: 07-26-2025 Patient encounter procedure [facility] Start: 07-26-2025 End: 07-26-2025 [facility] Facility:[facility] Start: 07-15-2025 End: 07-15-2025 Transcribe Orders Paco Jackson [facility] Work Phone: [facility] Comment on above: Chronic kidney disea se, stage 4 (severe) (HCC) (Primary Dx) Start: 06-24-2025 End: 06-24-2025 [facility] Start: 06-23-2025 End: 06-23-2025 [facility] Work [facility]: Start: 06-01-2025 Encounter for preprocedural laboratory examination MARYAN [facility] Start: 05-26-2025 End: 05-26-2025 [facility]: Start: 05-23-2025 End: 05-23-2025 ambulatory [facility] -Cat Scan [facility] Start: 05-23-2025 End: 05-23-2025 Patient encounter procedure [facility] -Cat Scan [facility] Work Phone: Start: 05-23-2025 End: 05-23-2025 ambulatory MARYAN DELONG Facility:[facility] Start: 05-13-2025 Encounter for genera l adult medical examination without abnormal findings Ed Physician Provider [facility] Start: 05-09-2025 End: 05-09-2025 [facility] Start: 05-08-2025 End: 05-08-2025 [facility] Start: 04-29-2025 End: 04-29-2025 [facility] Start: 04-22-2025 End: 04-22-2025 Patient encounter procedure Alec Tinajero MD Work Phone: [facility] Comment on above: Benign prostatic hyp erplasia with urinary retention (Primary Dx); Renal cysts, acquired, bilateral Start: 04-22-2025 End: 04-22-2025 ambulatory ALEC TINAJERO Facility:[facility] Start: 04-05-2025 End: 04-05-2025 ambulatory [facility] Work Phone: Start: 04-05-2025 End: 04-05-2025 Patient encounter procedure [facility] Start: 04-05-2025 End: 04-05-2025 ambulatory MARYAN DELONG Facility:[facility] Start: 03-29-2025 End: 03-29-2025 ambulatory [facility] Work Phone: Start: 03-29-2025 End: 03-29-2025 Patient encounter procedure [facility] Start: 03-24-2025 End: 03-24-2025 ambulatory [facility] Work Phone: Start: 03-24-2025 End: 03-24-2025 Patient encounter procedure Chikis Hernandez SENIOR MILITARY ANALYST-C -Radiology [facility] Work Phone: Start: 03-24-2025 End: 03-24-2025 ambulatory Chikis Musat Facility:[facility] Start: 03-15-2025 End: 03-15-2025 ambulatory ALEC TINAJERO Facility:[facility] Start: 03-02-2025 End: 03-02-2025 Emergency department patient visit [facility] Work Phone: Start: 01-25-2025 End: 01-25-2025 Emergency department patient visit [facility] Work Phone: Start: 01-21-2025 End: 01-21-2025 ambulatory [facility] Work Phone: Start: 01-21-2025 End: 01-21-2025 Patient encounter procedure JANUARY KEISHA SENIOR MILITARY ANALYST-C -Nuclear Medicine, [facility] Work Phone: Start: 01-21-2025 End: 01-21-2025 ambulatory [place]UARY [place] Facility:[facility] Start: 01-14-2025 End: 01-14-2025 [facility] Start: 11-13-2024 End: 11-13-2024 Emergency department patient visit Row[facility] She[facility] -Emergency Department Work Phone: Start: 09-03-2024 End: 09-03-2024 Emergency department patient visit Franki Medina Facility:[facility] Start: 01-20-2024 End: 01-20-2024 ambulatory [facility] Work Phone: Start: 01-20-2024 End: 01-20-2024 Patient encounter procedure [facility] Start: 12-16-2023 End: 12-16-2023 ambulatory [facility] Work Phone: Start: 12-16-2023 End: 12-16-2023 Patient encounter procedure [facility]-Cat Scan, [facility] Work Phone: Start: 06-16-2023 End: 06-16-2023 ambulatory [facility] Work Phone: Start: 06-16-2023 End: 06-16-2023 Patient encounter procedure [facility]-Cat Scan, [facility] Work Phone: Start: 12-31-2022 End: 12-31-2022 ambulatory [facility] Work Phone: Start: 12-31-2022 End: 12-31-2022 [facility] Start: 11-07-2022 Telephone encounter Heri plunkett MD Work Phone: [facility] [place] Comment on above: Gas (Pt stating that he has been having gas pain with flatulence. He has tried beano, gas x and nothing has worked. He wants to know if something can be called into [facility] on [address] ph [phone]. Please call to let him know something not too expensive, by the way, will be called in for him or discuss further. /) Start: 10-25-2022 Telephone encounter Heri plunkett MD Work Phone: [facility] [place] Comment on above: Medication Question Start: 10-18-2022 End: 10-18-20[facility] Start: 10-10-2022 End: 10-10-2022 ambulatory PACO GELLER [facility] Start: 09-16-2022 End: 09-16-2022 [facility]ulatory [facility] Start: 08-27-2022 End: 08-27-2022 ambulatory [facility] Start: 08-22-2022 End: 08-25-2022 Evaluation and management of inpatient [facility] Start: 08-15-2022 ambulatory UNKNOWN PROVIDER [facility] Start: 08-15-2022 [facility] Start: 08-15-2022 End: 08-15-2022 Patient encounter status Heri Camarillo MD Work Phone: [facility] Start: 08-15-2022 End: 08-15-2022 Subsequent hospital visit by physician Heri Camarillo MD Work Phone: [facility] Comment on above: Pre-op testing (Prim martha Dx) Start: 03-14-2022 End: 03-14-2022 Emergency department patient visit [facility]Emergency [facility] Start: 02-06-2022 End: 02-06-2022 Patient encounter procedure [facility] Procedures Date Procedure Procedure Detail Performing Clinician Start: 07-26-2025 Positron emission to mography with computed tomography [facility] Start: 06-24-2025 Urine culture [facility] Start: 06-24-2025 Urnls dip stick/tabl et reagent auto microscopy [facility] Start: 05-26-2025 Urnls dip stick/tabl et reagent auto microscopy [facility] Start: 05-26-2025 Urine culture [facility] Start: 05-23-2025 End: 05-23-2025 Plain chest X-ray [facility] Start: 05-23-2025 Biopsy/Inj or Needle Placement [facility] Start: 05-09-2025 Plain x-ray of hand [facility] Start: 05-09-2025 Plain x-ray of wrist [facility] Start: 05-08-2025 Urine culture [facility] Start: 05-08-2025 Urnls dip stick/tabl et reagent auto microscopy [facility] Start: 04-05-2025 PET study for locali zation of tumor [facility] Start: 03-24-2025 X-ray of chest, PA a nd lateral views [facility] Start: 01-25-2025 CT of abdomen and pe lvis without contrast [facility] Start: 01-25-2025 Blood culture [facility] Start: 01-25-2025 Urine culture [facility] Start: 01-25-2025 Estimated creatinine clearance [facility] Start: 01-25-2025 Urnls dip stick/tabl et reagent auto microscopy [facility] Start: 01-21-2025 Renal isotope studies [facility] Start: 12-16-2023 CT of chest without contrast Start: 12-16-2023 US urinary tract Start: 06-16-2023 CT of chest without contrast Start: 12-31-2022 CT of chest without contrast Start: 08-15-2022 Blood count hemoglobin Estela eKrn PA-C Start: 03-14-2022 Plain chest X-ray Start: 02-06-2022 Positron emission to mography with computed tomography Plan of Treatment Date Care Activity Detail Author Start: 09-30-2027 DTaP/Tdap/Td vaccine (2 - Td or Tdap) DTaP/Tdap/Td vaccine (2 - Td or Tdap) [facility] Start: 09-30-2027 Urine microalbumin profile DTa P,Tdap,Td Vaccine (2 - Td or Tdap) [facility] Start: 08-16-2025 Non-patient / Non-visit Non-pa tient / Non-visit -[facility] Start: 08-16-2025 Registered Recurring Registered Recu rring -Radiation Oncology Start: 06-24-2025 Bacteria identified in Urine by Culture Urine Culture [facility] Start: 06-24-2025 [facility] Start: 06-24-2025 [facility] Start: 06-23-2025 [facility] Start: 05-26-2025 End: 05-26-2025 [facility] Start: 05-26-2025 Bacteria identified in Urine by Culture Urine Culture [facility] Start: 05-23-2025 CORE NDL BX LNG/MED PERQ CORE NDL BX LNG/MED PERQ [facility] Start: 05-23-2025 Following clinical p athway protocol [facility] Start: 05-23-2025 Catheterization of vein [facility] Start: 05-23-2025 Oxygen therapy [facility] Start: 05-23-2025 Patient discharge [facility] Start: 05-23-2025 Vital signs measurements [facility] Start: 05-19-2025 End: 05-19-2025 Patient encounter procedure 05/19/2025 2:00 PM EDT Office Visit [facility] [address] [place] [address] Wolfgang Florez Jr., MD [address] [place], [place] [id number] referred by Dr. Tinajero for BPH [facility] Comment on above: referred by Dr. Javy tate for BPH Start: 05-09-2025 Plain x-ray of hand Hand Min 3 Views [facility] Start: 05-09-2025 Plain x-ray of wrist Wrist min 3 Vie ws [facility] Start: 05-09-2025 XR Hand GE [facility] Views [facility] Start: 05-09-2025 XR Wrist GE 3 Views [facility] Start: 05-08-2025 Bacteria identified in Urine by Culture Urine Culture [facility] Start: 05-08-2025 [facility] Start: 05-08-2025 [facility] Start: 04-29-2025 [facility] Start: 04-29-2025 Removal of urinary catheter [facility] Start: 04-29-2025 [facility] Start: 03-02-2025 [facility] Start: 01-25-2025 [facility] Start: 01-25-2025 Bacteria identified in Blood by Culture Blood Culture [facility] Start: 01-25-2025 Bacteria identified in Urine by Culture Urine Culture [facility] Start: 01-25-2025 [facility] Start: 01-25-2025 [facility] Start: 01-25-2025 Removal of urinary catheter [facility] Start: 01-14-2025 [facility] Start: 11-13-2024 [facility] Start: 10-27-2024 Advance Directive Discussion Advance Directive Discussion [facility] Start: 06-27-2024 Covid-19 Vaccine ( season) Covid-19 Vaccine () [facility] Start: 01-20-2024 Positron emission tomography with computed tomography [facility] Start: 12-11-2022 End: 12-11-2022 Patient encounter procedure 12/11/2022 Office Visit Urology Yadi Pemberton APRN - FAN ENGINE ENGINEER [address] [place] [address] [facility] Start: 08-22-2022 End: 08-22-2022 Patient encounter procedure 08/22/2022 Appointment General Surgery Heri Camarillo MD [address] [place] [address] Franc Zambrano MD [address] [place] [address] [facility] General Surgery Start: 06-27-2022 Influenza vaccination Influenza Vacc ine (#1) [facility] Start: 05-27-2022 Influenza vaccination Flu vaccine (# 1) [facility] Start: 05-03-2022 COVID-19 Vaccine (5 - Booster for Pfizer series) COVID-19 Vaccine (5 - Booster for Pfizer series) [facility] Start: 09-11-2021 COVID-19 Vaccine (2 - Pfizer series) COVID-19 Vaccine (2 - Pfizer series) [facility] Start: 2019 RSV Vaccine (1 - 1-d ose 75+ series) RSV Vaccine (1 - 1-dose 75+ series) [facility] Start: 03-09-2016 Pneumococcal 65+ yea rs Vaccine (2 - PPSV23 if available, else PCV20) Pneumococcal 65+ years Vaccine (2 - PPSV23 if available, else PCV20) [facility] Start: 05-04-2015 Pneumococcal Vaccine : 50+ (2 of 2 - PPSV23) Pneumococcal Vaccine: 50+ (2 of 2 - PPSV23) [facility] Start: 07-27-2009 Medicare Annual Well ness Visit Medicare Annual Wellness Visit [facility] Start: 1994 Screening for malign ant neoplasm of lung Low dose CT lung screening [facility] Start: 1994 Zoster Vaccines (1 of 2) Zoste r Vaccines (1 of 2) [facility] Start: 1989 Diabetes Screening Diabetes Screenin g [facility] Start: 1963 DTaP/Tdap/Td Vaccine s (1 - Tdap) DTaP/Tdap/Td Vaccines (1 - Tdap) [facility] Start: 1963 Urine screening for protein Diabetes: Urine Protein Screening [facility] System Start: 1962 An[facility] Screening [facility] Start: 1962 Depression Screening [facility] Start: 1962 Hepatitis C screening [facility] Start: 1956 Depression Screen Depression Screen [facility] Start: 1954 Diabetic foot examination Diabetes: Foot Exam [facility] Start: 1954 Glaucoma screening Diabetes: R etinopathy Screening [facility] Start: 1954 Preventive dental service Diabetes: Dental Exam [facility] Start: 1950 Pneumococcal Vaccine : 65+ Years (1 - PCV) Pneumococcal Vaccine: 65+ Years (1 - PCV) [facility] Start: 1944 Hemoglobin A1c measurement Margaret betes: Hemoglobin A1C [facility] Start: 1944 Hepatitis B Vaccines (1 of 3 - 3-dose series) Hepatitis B Vaccines (1 of 3 - 3-dose series) [facility] Start: 1944 Lipid panel Lipid Panel [facility] End: 08-15-2022 Culture, Urine [facility] Work Phone: Comment on above: One Time for 1 Occur rences starting 08/15/2022 until 08/15/2022 Patient Education [facility] Work Phone: Patient referral [facility] Work Phone: Urine culture [facility] Urine culture [facility] Urine culture [facility] Urine culture [facility] Immunizations Immunization Date Immunization Notes Care Provider Elisabeth morel 08-21-2021 Pfizer SARS-CoV-2 Vaccination Heri Camarillo MD Work Phone: [facility] Payers Date Payer Category Payer Private Health Insurance [facility] OPT [id number] 2024 Unknown [id number] 2024 Self-pay [id number] 2022 Unknown 2021 Unknown [id number] 2009 Medicare 1945 Unknown [id number] [id number]. 2.668 1945 Unknown [id number] 2.16.840.1.264305.3.579. 2.668 Medicare [id number] Unknown [id number] 2.16.840.1.586695.3.579. 2.462 Unknown [id number] 2.16.840.1.663379.3.579. 2.462 Unknown [id number] 2.16.840.1.029646.3.579. 2.462 Unknown [id number] 2.16.840.1.382879.3.579. 2.462 Unknown [id number] 2.16.840.1.340136.3.579. 2.462 Unknown [id number] 2.16.840.1.902901.3.579. 2.462 Unknown [id number] 2.16.840.1.374797.3.579. 2.462 Unknown [id number] 2.16.840.1.231084.3.579. 2.462 Unknown [id number] 2.16.840.1.381542.3.579. 2.462 Unknown [id number] 2.16.840.1.070361.3.579. 2.462 Unknown [id number] 2.16.840.1.888794.3.579. 2.462 Unknown [id number] 2.16.840.1.429977.3.579. 2.462 Unknown [id number] 2.16.840.1.467517.3.579. 2.462 Unknown [id number] 2.16.840.1.060393.3.579. 2.462 Unknown [id number] 2.16.840.1.453924.3.579. 2.462 Unknown [id number] 2.16.840.1.962585.3.579. 2.462 Unknown [id number] 2.16.840.1.111171.3.579. 2.462 Unknown [id number] 2.16.840.1.225140.3.579. 2.462 Unknown [id number] 2.16.840.1.841819.3.579. 2.462 Unknown [id number] 2.16.840.1.962646.3.579. 2.462 Unknown [id number] 2.16.840.1.808337.3.579. 2.462 Unknown [id number] 2.16.840.1.117590.3.579. 2.462 Unknown [id number] 2.16.840.1.629172.3.579. 2.462 care--Care provided to [facility] [place] [facility] [id number]. [id number] Social History Date Type Detail Facility Start: 03-14-2022 End: 03-14-2022 Tobacco smoking status COIS Unknown if ever smoked [facility] Start: 1945 Sex Assigned At Male [facility] Start: 08-15-2022 End: 07-27-2025 Tobacco smoking status NHIS Smokes tobacco daily [facility] History of tobacco use Cigarette Smoker [facility] Work Phone: Start: 08-15-2022 End: 03-15-2025 Cigarettes smoked current (pack per day) - Reported 1.5 [employer] Work Phone: Start: 08-15-2022 End: 03-15-2025 Tobacco use and exposure Smokeless tobacco non-user [employer] Work Phone: Start: 08-15-2022 End: 10-10-2022 Alcohol intake Ex-drinker (finding) [employer] Work Phone: Start: 1945 Sex Assigned At Not on file [facility] [employer] Work Phone: Start: 08-05-2022 End: 08-15-2022 Exposure to SARS-CoV-2 (event) Not sure [facility] Work Phone: Start: 10-08-2022 End: 10-18-2022 Exposure to SARS-CoV-2 (event) Unable to assess [facility] [employer] Start: 01-14-2025 End: 05-08-2025 Tobacco smoking status NHIS Current Heavy tobacco smoker [facility] Start: 01-14-2025 End: 01-25-2025 Sex Male (finding) [facility] Start: 03-15-2025 Alcoholic beverage intake Lifetime non-drinker (finding) [facility] Start: 03-15-2025 Tobacco use panel [facility] National Score (1-10 0), lower number is lower risk 72 [facility] Functional Status Date Assessment Result Facility 05-23-2025 Functional status [facility] Work Phone: Mental Status Date Assessment Result Facility 05-23-2025 Cognitive function Voice/Name [facility] Work Phone: Clinical Notes 08-15-2022 to 08-08-2025 Note Date & Type Note Facility 08-08-2025 Progress note [facility] 06-23-2025 Discharge summary [facility] 06-23-2025 Discharge summary Note Date/Time June 23, 2025 10:33pm [facility] Medical Records Department [address] [place] [address] Emergency Department Summary 06/23/25 MR#: [id number] Acct: [id number] Name: LORI LYNCH Rep #:[id number] : 1945 79 From: Jacky Norman MD PCP: [facility] Status:REG ER Location: ED HPI History of Present Illness Chief Complaint: Diego C/O Informant: patient Pain Onset: Today Narrative Narrative: Diego catheter placed today obstructed. History of BPH. [facility] Prior similar symptoms: No Recent Illness/Hospitalization: No PFSH PFSH Medical History BPH with obstruction/lower urinary [...] Time amoxicillin (From Augmentin) Allergy Hives Verified 06/23/25 21:53 clavulanic acid (From Allergy Hives Verified 06/23/25 21:53 Augmentin) lisinopril Allergy Other Verified 06/23/25 21:53 Family History Other Diabetes Surgical History H/O shoulder replacement Social History Smoking Status: Current every day smoker tobacco type: cigarettes ROS ROS ED ROS Narrative Denies recent illness. Constitutional Constitutional ED: Denies chills or fever(s) Eyes Eyes: Denies blurry vision or change in vision ENT ENT ED: Denies ear pain Cardiovascular Cardiovascular: Denies chest pain or palpitations Respiratory/Chest Respiratory/Chest: Denies cough, dyspnea or dyspnea on exertion Gastrointestinal Gastrointestinal: Denies abdominal pain Genitourinary Genitourinary ED: Denies dysuria or hematuria Musculoskeletal Musculoskeletal: Denies arthralgias or back pain Integumentary Denies abscess or rash Neurologic Neurologic: Denies headache(s) or paresthesias Psychiatric Psychiatric: Denies anxiety, depression or suicidal ideation Endocrine Endocrinology: Denies polydipsia, polyphagia or polyuria Hematologic/Lymphatic Hematologic/Lymphatic: Denies easy bleeding, easy bruising or lymphadenopathy Allergic/Immunologic Allergic/Immunologic ED: Denies mouth swelling, tongue swelling or urticaria EXAM Physical Exam Narrative Exam Narrative: 79-year-old male sitting upright in bed vital signs stable afebrile. H EENT exam pupils round react light. Moist mucous membranes. Neck nontender. Lungs clear to auscultation. Heart regular rhythm rate about 90 no murmur. Chest wall ribs nontender. Abdomen soft, nontender nondistended normal bowel sounds without peritoneal signs. No suprapubic tenderness. No distended bladder. Nurses already irrigated his 20 Latvian Diego catheter. Is clear yellow urine nondraining. No blood or clots. Appears to be draining well now. There was sediment initially. Moving all 4 extremities. Nontender no edema. Back nontender. Neurologically he is awake alert. Answering questions following commands Const Vital Signs: 06/23/25 21:51 Temperature 97.8 F Temperature Source Temporal Pulse Rate 90 Respiratory Rate 16 Blood Pressure 172/72 H Blood Pressure Mean 105 Pulse Ox 97 Oxygen Delivery Method Room Air Positive well nourished and well developed; Negative for cachectic, contracturesor unkempt General Appearance ED: well developed and NAD; Negative for unkempt, cachectic, contractures or pallor Nutritional Appearance: Negative for cachectic HEENT Reports moist mucous membranes normocephalic and atraumatic Eyes PERRL and EOMs intact bilaterally Neck no lymphadenopathy, supple and no JVD General: Negative for tenderness Resp normal respiratory effort and clear to auscultation bilaterally Cardio regular rate, regular rhythm, S1 normal heart sound, S2 normal heart sound and no murmurs Rate: Negative for bradycardia or tachycardic Rhythm: Negative for abnormal rhythm Heart Sounds: Negative for other GI non-tender, non-distended and no masses Auscultation: normoactive bowel sounds Palpation: soft; Negative for tender or guarding no CVA tenderness Bladder / Kidney Exam: No CVA tenderness Groin / Perineum Exam: Negative for edema or lesions Back/Spine no CVA tenderness General Back: Negative for CVA tenderness Cervical Spine: Negative for cervical spine tenderness Thoracic Spine / Upper Back: Negative for thoracic spinal tenderness Lumbar Spine / Lower Back: Negative for lumbar spinal tenderness Extremity normal to inspection General Extremety ED: Negative for edema, pulses abnormal or tenderness General Extremity: Negative for edema or pulses abnormal Neuro oriented x3, CN's II-XII intact bilaterally, moves all extremities and no focal motor deficits Sensorium / Orientation: alert, oriented to person, oriented to place and oriented to time Motor Exam: strength 5/5 throughout Psych mental status grossly normal Appearance: Negative for unkempt Attitude: No agitated Mood & Affect: Negative for depressed, anxious or tearful Thought Process: normal thought process Skin General Skin Exam: Negative for jaundice or pallor Lesions: no lesions Rashes: no rashes Trauma: Negative for abrasion, laceration, puncture or other MDM MDM MDM Narrative Medical decision making narrative: 79-year-old male obstructed Diego catheter [facility] Nurse irrigated sediment came out. There was no blood or clots. Is now running nicely with clear yellow urine. Will be discharged home with outpatient [facility]upwith [facility]. He knows to return if there is any Diego problems. History & Record Review Discussion w/independent historian: Patient Discharge Plan Triage Chief Complaint: Diego C/O ED Provider: Jacky Norman Dx/Rx/DC Orders Clinical Impression: Obstructed Diego catheter, Diabetes, History of BPH Prescriptions: No Action insulin glargine 100 unit/mL [...] 750 mg PO DAILY Qty: 5 0RF levofloxacin 750 mg tablet 750 mg PO DAILY Qty: 7 0RF [facility] [Primary Care Provider] - As Needed Activity Restrictions/Additional Instructions: If you are having any problems with your catheter [facility] Tonight just seemed to be clogged when the nurse irrigated it seems to be flowing well now. There is no signs of any bleeding. Print Language: American Disposition Disposition: Home, Self Care What to do if you have Problems For any increased pain, shortness of breath, bleeding, nausea or vomiting, chestpain, or any unexpected problems, contact your Primary Care Provider. Call [facility] ([phone]) or report to the closest Emergency Room. Call 911 if necessary. 06/23/252232 <Electronically signed by Jacky Norman MD> Cosigner Signature (if applicable): CC: [facility] ~ Signed [facility] Work Phone: 1(612) 482-198407-31-2025 Discharge summary [facility] Medical Records Department [address] [place] [address] Emergency Department Summary 05/26/25 MR#: [id number] Acct: [id number] Name: LORI LYNCH Rep #:[id number] : 1945 79 From: Oscar Valencia MD [facility] Status:REG ER Location: ED HPI History [...] catheter exchanged every month. Recently at the [facility], they have been inserting coud? catheters. He ends up leaking around them, and has to come to the emergency department to get it exchanged for a regular Diego catheter that is 20 Latvian in size. He states that he had a Diego catheter changed today at the [facility] and it started leaking aroundthe catheter again. He denies any fevers or chills, he is having bladder spasms. No hematuria. He states that this is the third time that he has had to come to theemergency department to get his straight Diego catheter. [facility] Medical History BPH with obstruction/lower urinary tract [...] 100 unit/mL (3 10 unit subcut QHS margraet betes 07/10/24 01/24/25 History mL) subcutaneous pen [...] he is here for Diego catheter exchange. 20French Diego catheter will be placed by RN. [...] Cipro but the bacterial species was sensitive toLevaquin. He was called in a prescription for Levaquin instead so this time while urine culture wassent, he was given his first dose of Levaquin here and prescription written for the next 7 days. I feel he can be discharged to follow-up with his urologist at the [facility]. Return instructions were reviewed. Disposition is discharged home in stable condition. History & Record Review Additional record(s) reviewed:: Prior ED visit (Bacterial species is sensitive to Levaquin) Lab Data Attestation: I reviewed the patient's lab results. Labs: Laboratory Results - last 24 hr 05/26/25 19:19 Urine Color Straw Urine Clarity Turbid Urine pH 6.5 Ur Specific [place] 1.015 Urine Protein 100 H Urine Glucose [...] DAILY Qty: 5 0RF [facility] [Primary Care Provider] - Activity Restrictions/Additional Instructions: Follow-up with your urologist at the [facility]. Antibiotics as directed. Return with fever, new or worsening symptoms. Print Language: American Disposition Disposition: Home, Self Care What to do if you have Problems For any increased pain, shortness of breath, bleeding, nausea or vomiting, chestpain, or any unexpected problems, contact your Primary Care Provider. Call [facility] ([phone]) or report tothe closest Emergency Room. Call 911 if necessary. 05/26/252018 Cosigner Signature (if applicable): CC: [facility] ~ Signed [facility]07-31-2025 Discharge summary Author Oscar Valencia [facility] Note Date/Time May 26, 2025 8:19 pm [facility] Medical Records Department [address] [place] [address] Emergency Department Summary 05/26/25 MR#: [id number] Acct: [id number] Name: LORI LYNCH Rep #:[id number] : 1945 79 From: Oscar Valencia MD [facility] Status:REG ER Location: ED HPI History [...] catheter exchanged every month. Recently at the [facility], they have been inserting coud? catheters. He ends up leaking around them, and has to come to the emergency department to get it exchanged for a regular Diego catheter that is 20 Latvian in size. He states that he had a Diego catheter changed today at the [facility] and it started leaking around the catheter again. He denies any fevers or chills, he is having bladder spasms. No hematuria. He states that this is the third time that he has had to come to theemergency department to get his straight Diego catheter. [facility] Medical History BPH with obstruction/lower urinary tract [...] is here for Diego catheter exchange. 20 Latvian Diego catheter will be placed by RN. Additionally, he was concerned and wanted a urinalysis performed which I think is reasonable since he has indwelling Idego catheter, but I have a low suspicionfor [...] to follow-up with his urologist at the [facility]. Return instructions were reviewed. Disposition is discharged home in stable condition. History & Record Review Additional record(s) reviewed:: Prior ED visit (Bacterial species is sensitive to Levaquin) Lab Data Attestation: I reviewed the patient's lab results. Labs: Laboratory Results - last 24 hr 05/26/25 19:19 Urine Color Straw Urine Clarity Turbid Urine pH 6.5 Ur Specific [place] 1.015 Urine Protein 100 H Urine Glucose [...] DAILY Qty: 5 0RF [facility] [Primary Care Provider] - Activity Restrictions/Additional Instructions: Follow-up with your urologist at the [facility]. Antibiotics as directed. Return with fever, new or worsening symptoms. Print Language: American Disposition Disposition: Home, Self Care What to do if you have Problems For any increased pain, shortness of breath, bleeding, nausea or vomiting, chestpain, or any unexpected problems, contact your Primary Care Provider. Call [facility] ([phone]) or report to the closest Emergency Room. Call 911 if necessary. 05/26/252018 <Electronically signed by Oscar Valencia MD> Cosigner Signature (if applicable): CC: [facility] ~ Signed [facility] Work Phone: 1(639) 893-520307-28-2025 Radiology Diagnostic study note [facility] Imaging Services [address] [place] [address] Chest Insp/Exp 2 View MR#: [id number] Acct: [id number] Name: LORI LYNCH Rep #: [id number] : 1945 M 79 From: Berlin Green MD PCP: [facility] Status: REG CLI Study:Chest Insp/Exp 2 View Date of Exam: 05/23/25 Exam# [id number] Ordering Dr: Jemal Green MD EXAM: AP [...] interval osseous change is noted. Reading Location: [place] [address] CC: Dr. Jemal Green MD; [facility] ~ Real Estate Intern: Signed [facility]07-28-2025 Radiology Diagnostic study note [facility] Imaging Services [address] [place], [place] [address] Chest Insp/Exp 2 View MR#: [id number] Acct: [id number] Name: LORI LYNCH Rep #: [id number] : 1945 M 79 From: John Padilla MD PCP: [facility] Status: REG CLI Study:Chest Insp/Exp 2 View Date of Exam: 05/23/25 Exam# [id number] Ordering Dr: Jemal Green MD EXAM: AP inspiration expiration views following left lung biopsy. CLINICAL HISTORY: Status post left lung biopsy. COMPARISON: Prior study dated March 24, 2025. TECHNIQUE: AP inspiration expiration views. FINDINGS: No evidence of pneumothorax following the biopsy. RAD/Chest Insp/Exp 2 View IMPRESSION: No evidence of pneumothorax following the biopsy. Reading Location: [facility] CC: Dr. Jemal Green MD; [facility] ~ [employer] Intern: Signed [facility]07-28-2025 Radiology Diagnostic study note [facility] Imaging Services [address] [place] [address] Biopsy/Inj or Needle Placement MR#: [id number] Acct: [id number] Name: LORI LYNCH Rep #: [id number] : 1945 M 79 From: Berlin Green MD PCP: [facility] Status: REG CLI Study:Biopsy/Inj or Needle Placement Date of Exam: 05/23/25 Exam# [id number] Ordering Dr: MIREYA LAWSON EXAM: CT-guided core [...] nodule core biopsy. Pathology resultspending. Reading Location: [place] [address] CC: MIREYA SOLIS; [facility] ~ Real Estate Intern: Signed [facility]07-04-2025 Discharge summary [facility] Medical Records Department [address] [place] [address] Emergency Department Summary 04/29/25 MR#: [id number] Acct: [id number] Name: LORI LYNCH Rep #:[id number] : 1945 79 From: Chikis ROBERTSON PCP: [facility] Status:REG ER Location: ED HPI History of Present Illness Chief Complaint: Complaint Narrative Narrative: 79-year-old male has BPH and chronic indwelling Diego June 2024. He saw [facility]ist [facility] yesterday and had a routine catheter change. Since thenurine has been leaking from around the tubeand his penis is only partially draining in the bag. He has no pain. No hematuria or clots. [facility] Medical History BPH with obstruction/lower urinary tract [...] rebound, nondistended. : Normal external genitalia. [address] catheter in place. There is urine [...] making narrative: 79-year-old male with a 20 Latvian Diego catheter is leaking since it was [...] Days Qty: 7 0RF [facility] [Primary Care Provider] - Activity Restrictions/Additional Instructions: Your Diego catheter was adjusted and now seems to be draining normally. If you have any issues you can return to the ER or see your urologist. Print Language: American What to do if you have Problems For any increased pain, shortness of breath, bleeding, nausea or vomiting, chestpain, or any unexpected problems, contact your Primary Care Provider. Call [facility] ([phone]) or report tothe closest Emergency Room. Call 911 if necessary. 04/29/25 1426 Cosigner Signature (if applicable): 04/29/25 0864 CC: [facility] ~ Signed [facility]07-04-2025 Discharge summary Author Chikis Puckett [facility] Note Date/Time April 29, 2025 4:14[facility] Medical Records Department [address] [place] [address] Emergency Department Summary 04/29/25 MR#: [id number] Acct: [id number] Name: LORI LYNCH Rep #:[id number] : 1945 79 From: Chikis ROBERTSON [facility] Status:REG ER Location: ED HPI <AILYN Daniels - Last Filed: 04/29/25 14:26> History of Present Illness Chief Complaint: Complaint Narrative Narrative: 79-year-old male has BPH and chronic indwelling Diego June 2024. He saw his urologist at [facility] yesterday and had a routine catheter change. Since thenurine has been leaking from around the tube and his penis is only partially draining in the bag. He has no pain. No hematuria or clots. [facility] <AILYN Daniels - Last Filed: 04/29/25 14:26> [facility] Medical History BPH with obstruction/lower urinary tract [...] rebound, nondistended. : Normal external genitalia. [address] catheter in place. There is urine [...] Pulse Ox 99 95 98 <Dr. William Seals, - Last Filed: 04/29/25 15:56> Physical Exam Const Vital Signs: 04/29/25 13:03 04/29/25 14:20 04/29/25 15:43 Temperature 98.9 F 97.8 F 97.5 F L Temperature Source Oral Oral Pulse Rate 95 76 92 Respiratory Rate 18 15 16 Blood Pressure 145/74 H 135/67 H 164/75 H Blood Pressure Mean 97 89 104 Pulse Ox 99 95 98 [facility] <AILYN Daniels - Last Filed: 04/29/25 14:26> [facility] Narrative Medical decision making narrative: 79-year-old male with a 20 Latvian Diego catheter is leaking since it was [...] William Seals, - Last Filed: 04/29/25 15:56> [facility] Treatment and Re-Evaluation Narrative: I have [...] Days Qty: 7 0RF [facility] [Primary Care Provider] - Activity Restrictions/Additional Instructions: Your Diego catheter was adjusted and now seems to be draining normally. If you have any issues you can return to the ER or see your urologist. Print Language: American What to do if you have Problems For any increased pain, shortness of breath, bleeding, nausea or vomiting, chestpain, or any unexpected problems, contact your Primary Care Provider. Call [facility] ([phone]) or report to the closest Emergency Room. Call 911 if necessary. 04/29/25 1426 <Electronically signed by Chikis ROBERTSON> Cosigner Signature (if applicable): 04/29/25 1614 <Electronically signed by William Seals DO> CC: [facility] ~ Signed [facility] Work Phone: 1(317) 996-534606-27-2025 Instructions* Patient Instructions* Alec Tinajero MD - [...] prostate cancer in its early stages, the [place] [employer] and the [place] [employer] recommend a screening every year for men ages 50 to 70. They further recommend that men who are at high risk -- such as -[place] men and men with a family history [...] and improves urine flow. [facility] NoteHNO ID: [id number] Author: ALEC TINAJERO MD Service: ? Author Type: Physician Type: Progress Notes Filed: 04/22/2025 08:38 Note Text: ESTABLISHED PATIENT OFFICE VISIT Unit Secy present: Nina Sexton MA PATIENT INFO: Lroi Lynch 79 year old HPI 04/22/2025 CC: [...] 2024 patient went into retention and the [facility] has been changing the catheter monthly since then He [facility]rology at the [facility] and they talked him about getting [facility]ubic tube at the [facility] in [place] but he wants to come to [place] as it is closer to [place] where he lives Has had catheter change in [place] Had a aqua ablation in the past [...] him to get disc with films from [place] where he had them and see me [...] and dysuria. Risk of anesthesia complications, stroke, AL, etc.The patient expressed an understanding with regard to possible complications and outcom (more content not included)...[facility]06-27-2025 History of Present illness Narrative* Alec Tinajero MD - 04/22/2025 8:07 AM EDT ESTABLISHED PATIENT OFFICE VISIT Unit Secy present: Nina Sexton MA PATIENT INFO: Lori [...] pain Past Urology Hx: 03/15/2025 Pt CC: dieog VOIDING SYMPTOMS: In June 2024 patient went into retention and the [facility] has been changing the catheter monthly since then He saw urology at the [facility] and they talked him about getting suprapubic tube at the [facility] in [place] but he wants to come to [place] as it is closer to [place] where he lives Has had catheter change in [place] Had a aqua ablation in the past [...] him to get disc with films from [place] where he had them and see me back for cystoscopy and ultrasound of prostate and go from there October 18, 2022-seen by Dr. Camarillo/rishbah- 77 y.o. male who presents for telehealth [...] and dysuria. Risk of anesthesia complications, stroke, AL, etc.The patient expressed an understandingwith regard to possible complications and outcome. Discussed options alpha clifford therapy vs proscar vs surical intervention and risks of these. Alpha bolckers can cause dizzines and falls. Discussed risk bladder decompinsation detention could be anissue if no surgical intervention. [...] discussed with the Patient or Patient's Authorized Sequins Spooler. Asapplicable, any other physician, advance practice provider, medical student, or other health professional student that will be observing or involved in the sensitive examination for educational or training purposes was discussed with the Patient or Authorized Sequins Spooler. The Patient or Authorized Sequins Spooler has agreed to proceed with the sensitive examination. (Sensitive examination includes inspection and/or palpation of the breasts, pelvis, prostate and anorectal regions) Please note: This note has been produced using speech recognition software and may contain errors related to that system including grammar, punctuation, spelling, gender and words and phrases that may be inappropriate. [facility] Radiology Diagnostic study note [facility] Imaging Services [address], [place] [address] Chest PA and Lateral MR#: [id number] Acct: [id number] Name: LORI LYNCH Rep #: [id number] : 1945 M 79 From: Irene Neal MD PCP: [facility] Status: REG CLI Study:Chest PA and Lateral Date of Exam: 03/24/25 Exam# [id number] Ordering Dr: Bibi Hernandez sa SENIOR MILITARY ANALYST-C PROCEDURE: CHEST PA AND LATERAL 03/24/2025 REASON [...] not well-visualized by radiographic imaging. Reading Location: [facility] CC: MASON Hernandez; [facility] ~ Real Estate Intern: Signed [facility]05-20-2025 NoteHNO ID: [id number] Author: ALEC TINAJERO MD Service: ? Author Type: Physician Type: Progress Notes Filed: 03/16/2025 14:56 Note Text: NEW PATIENT HISTORY AND PHYSICAL EXAM patient declined sliver chopper PATIENT INFO: Lori Lynch 79 year old HPI 03/15/2025 Pt CC: diego VOIDING SYMPTOMS: In June 2024 patient went into retention and the [facility] has been changing the catheter monthly since then He saw urology at the [facility] and they talked him about getting suprapubic tube at the [facility] in [place] but he wants to come to [place] as it is closer to [place] where he lives Has had catheter change in [place] Had a aqua ablation in the past and saw Dr. Camarillo as noted below but a lot of urine frequency then that persisted Catheter has been draining well now No fevers or chills Follows his elevated creatinine with [facility] report showed some mild bilateral hydroureter and severe BPH with bilateral renal cysts and some might be 2F and suggested follow-up Instructed him to get disc with films from [place] where he had them and see me back for cystoscopy and ultrasound of prostate and go from there Past Uology History: October 18, 2022-seen by Dr. Camarillo/summgian- 77 [...] discussed with the Patient or Patient's Authorized Sequins Spooler. As applicable, any other physician, advance practice provider, medical student, or other health professional student that will be observing or involved in the sensitive examination for educational or training purposes was discussed with the Patient or Authorized Sequins Spooler. The Patient or Authorized Sequins Spooler has agreed to proceed with the sensitive [...] and outcome. FOLLOW UP: (more content not included)...[facility]04-01-2025 Discharge summary [facility] Medical Records Department [address] [place] [address] Emergency Department Summary 01/25/25 MR#: [id number] Acct: [id number] Name: LORI LYNCH Rep #:[id number] : 1945 79 From: Greg Ruiz MD PCP: [facility] Status:REG ER Location: ED HPI History [...] is concerned he may have a UTI. [facility] Medical History BPH with obstruction/lower urinary tract [...] his urine which was obtained by changing hisIdeal [facility] does show pyuria and signs of infection,this [...] we were able to obtain a 20 Latvian coud?, nursing advanced it all the way, [...] 73.0 H Lymph % (Auto) 9.4 L [place] % (Auto) 15.4 H Eos % (Auto) [...] Clarity Turbid Urine pH 6.0 Ur Specific [place] 1.010 Urine Protein 100 H Urine Glucose [...] seen within the prostatic urethra. Reading Location: [id number]-S Management Discussion w/another healthcare provider: Raw Stock Dyeing Machine Tender (Dr. [facility]) Discharge Plan Triage Chief [...] 324 mg PO QHS [place] [facility] [place] [place] [facility] [Primary Care Provider] - Keep Cezar appointment [...] to the ER for reevaluation. Print Language: American Disposition Disposition: Home, Self Care What to do if you have Problems For any increased pain, shortness of breath, bleeding, nausea or vomiting, chestpain, or any unexpected problems, contact your Primary Care Provider. Call [facility] ([phone]) or report tothe closest Emergency Room. Call 911 if necessary. 01/25/25 1728 Cosigner Signature (if applicable): CC: [facility] ~ Signed [facility]04-01-2025 Radiology Diagnostic study note [facility] Imaging Services [address], [place] [address] Abdomen/Pelvis without Cont MR#: [id number] Acct: [id number] Name: LORI LYNCH Rep #: [id number] : 1945 M 79 From: John Padilla MD PCP: [facility] Status: REG ER Study:Abdomen/Pelvis without Cont Date of Exa m: 01/25/25 Exam# [id number] Ordering Dr: Shirley Ruiz MD PROCEDURE: ABDOMEN/PELVIS [...] seen within the prostatic urethra. Reading Location: [id number] CC: Dr. Greg Ruiz MD; [facility] ~ Real Estate Intern: Signed [facility]04-01-2025 Discharge summary Author Greg Ruiz [facility] Note Date/Time January 25, 2025 5:28 pm [facility] Medical Records Department [address] [place] [address] Emergency Department Summary 01/25/25 MR#: [id number] Acct: [id number] Name: LORI LYNCH Rep #:[id number] : 1945 79 From: Greg Ruiz MD PCP: [facility] Status:REG ER Location: ED HPI History [...] is concerned he may have a UTI. [facility] Medical History BPH with obstruction/lower urinary tract [...] we were able to obtain a 20 Latvian coud?, nursing advanced it all the way, [...] 73.0 H Lymph % (Auto) 9.4 L [place] % (Auto) 15.4 H Eos % (Auto) [...] Clarity Turbid Urine pH 6.0 Ur Specific [place] 1.010 Urine Protein 100 H Urine Glucose [...] seen within the prostatic urethra. Reading Location: [id number] Management Discussion w/another healthcare provider: Raw Stock Dyeing Machine Tender (Dr. [facility]) Discharge Plan Triage Chief [...] 324 mg PO QHS Primary Care Provider: [facility] [Primary Care Provider] - Keep Cezar appointment [...] to the ER for reevaluation. Print Language: American Disposition Disposition: Home, Self Care What to do if you have Problems For any increased pain, shortness of breath, bleeding, nausea or vomiting, chestpain, or any unexpected problems, contact your Primary Care Provider. Call [facility] ([phone]) or report to the closest Emergency Room. Call 911 if necessary. 01/25/25 5687 <Electronically signed by Greg Ruiz MD> Cosigner Signature (if applicable): CC: [facility] ~ Signed [facility] Work Phone: 1(182) 792-312803-31-2025 Nuclear medicine Diagnostic study note [facility] Imaging Services [address] [place] [address] Renal Scan w/ Pharm Intervent MR#: [id number] Acct: [id number] Name: LORI LYNCH Rep #: [id number] : 1945 M 79 From: John Padilla MD PCP: [facility] Status: REG CLI Study:Renal Scan w/ Pharm Intervent Date of E xam: 01/21/25 Exam# [id number] Ordering Dr: Gian VALDES PROCEDURE: RENAL SCAN [...] with the injection of Lasix. Reading Location: [place] [address] CC: PALLAVI MASON VALDES; [facility] ~ Real Estate Intern: Signed [facility]03-21-2025 Discharge summary [facility] Medical Records Department [address] [place] [address] Emergency Department Summary 01/14/25 MR#: [id number] Acct: [id number] Name: LORI LYNCH Rep #:[id number] : 1945 79 From: Greg Ruiz MD [facility]:REG ER Location: ED HPI History [...] thinks that is why it is leaking. [facility] Medical History BPH with obstruction/lower urinary tract [...] mg PO DAILY #30 tabs 09/17 /24 11/08/24 Rx tamsulosin 0.4 mg capsule 0.4 mg [...] BID Qty: 14 0RF [facility] [Primary Care Provider] - 3-5 Days if not improving Print Language: American Disposition Disposition: Home, Self Care What to do if you have Problems For any increased pain, shortness of breath, bleeding, nausea or vomiting, chestpain, or any unexpected problems, contact your Primary Care Provider. Call [facility] ([phone]) or report tothe closest Emergency Room. Call 911 if necessary. 01/14/25 1426 Cosigner Signature (if applicable): CC: [facility] ~ Signed [facility]03-21-2025 Discharge summary Author Greg Ruiz [facility] Note Date/Time January 14, 2025 2:2 6pm [facility] Medical Records Department [address] [place] [address] Emergency Department Summary 01/14/25 MR#: [id number] Acct: [id number] Name: LORI LYNCH Rep #:[id number] : 1945 79 From: Greg Ruiz MD PCP: [facility] Status:REG ER Location: ED HPI History [...] thinks that is why it is leaking. [facility] Medical History BPH with obstruction/lower urinary tract [...] BID Qty: 14 0RF [facility]] - 3-5 Days if not improving Print Language: American Disposition Disposition: Home, Self Care What to do if you have Problems For any increased pain, shortness of breath, bleeding, nausea or vomiting, chestpain, or any unexpected problems, contact your Primary Care Provider. Call [facility] ([phone]) or report to the closest Emergency Room. Call 911 if necessary. 01/14/25 1426 <Electronically signed by Greg Ruiz MD> Cosigner Signature (if applicable): CC: [facility] ~ Signed [facility] Work Phone: [phone] 751-916802-09-2023 Telephone encounter Note* Telephone Encounter - Chasidy [...] will give it more time to work. [facility] [id number] Miscellaneous Notes* Telephone Encounter - Chasidy Keenan [...] but states he needs prescription sent to [facility] instead. [facility] switched to [facility] per patient request. * Telephone Encounter - TALITA Murillo CNP - 11/07/2022 2:17 PM EST Rx for tolterodine (Detrol LA) sent to [facility] in [place]. Please advise him it could take 6-8 [...] is not helping. Per previous TE's the [facility] will not [facility] for myrbetriq. Patient aware to contact PCP if current gas pain is persistent.Patient voiced understanding. * Telephone Encounter - Marcelino Portillo - 11/07/2022 7:40 AM EST Name of caller: Phil Contact phone number: [phone] Relationship to Patient: patient Provider: [facility] Practice: Uro Chief Complaint/Reason for Call: Pt stating that he has been having gas pain with flatulence. He has tried beano, gas x and nothing has worked. He [facility] to know [facility] [address] ph [phone]. Please call to let him know something not too expensive, by the way, will be called in for him or discuss further. Best time of day caller can be reached: Patient advised that office/PCP has 24-48 business hours to return their call: documented in this encounterSCincinnati VA Medical CenterRumibi24-25-1132 Telephone encounter Note* Telephone Encounter - Chasidy Keenan RN - 11/07/2022 4:13 PM EST Spoke with patient and relayed Yadi's note to him verbatim. He verbalizes understanding of allinformation provided, but states he needs prescription sent to [facility]. [facility] to [facility] per patient request. [facility] [id number] Telephone encounter Note* Telephone Encounter - TALITA Murillo CNP - 11/07/2022 2:17 PM EST Rx for tolterodine (Detrol LA) sent to [facility] in [place]. Please advise him it could take 6-8 weeks to see full effect of the medication. If the medication causes any bothersome side effects such as dry eye, dry mouth, constipation, or difficulty urinating please have him call us. Thanks. [facility] [id number] Telephone encounter Note* Telephone Encounter - Kimberley [...] is not helping. Per previous TE's the [facility] will not [facility] for myrbetriq. Patient aware to contact PCP if current gas pain is persistent.Patient voiced understanding. [facility]01-12-2023 Telephone encounter Note* Telephone Encounter - Marcelino Portillo - 11/07/2022 7:40 AM EST Name of caller: Phil Contact phone number: [phone] Relationship to Patient: patient Provider: [facility] Practice: Uro Chief Complaint/Reason for Call: Pt stating that he has been having gas pain with flatulence. He has tried beano, gas x and nothing has worked. He wants to know if something can be called into [facility] on [address] ph [phone]. Please call to let him know something not too expensive, by the way, will be called in for him or discuss further. Best time of day caller can be reached: Patient advised that office/PCP has 24-48 business hours to return their call: [facility]01-10-2023 Telephone encounter Note* Telephone Encounter - Kari Warren LPN - 11/05/2022 11:53 AM EST Patient informed of medication increase and needing 6 weeks follow up and PVR. Patient verbalized understanding and have no further questions or concerns at this time. [facility]01-10-2023 Miscellaneous Notes* Telephone Encounter - Kari Warren [...] 11/04/2022 9:06 AM EST [facility] sent [place] [facility] [place] Myrbetric 25 mg for patient [...] EST Lvm that script was sent into [facility] pharmacy today. Call if he has any further questions or concerns. * Telephone Encounter - TALITA Man CNP - 10/25/2022 12:21 PM EST Sent. Please let patient know * Telephone Encounter - Franky Huang RN - 10/25/2022 12:08 PM EST Pt called in and stated, Dr Camarillo was supposed to send [facility]. Someone needs to get their act together! I need this medicine! You need to let me know what's going on! Upon investigation, Trospium appears to have been sent to [facility] in [place]. Pt would prefer Rx sent to [facility]. Pharmacy in chart and below. [facility] - [place], [place] - [address] [[id number]] Routing to Dr Camarillo and AP[facility]. Thank you. documented in this [facility]01-09-2023 Note* Addendum Note - TALITA Man CNP - 11/04/2022 2:42 PM ESTAddended by: SANDI PENA on: 11/04/2022 02:42 PM Modules accepted: Orders [facility] [id number] Note* Addendum Note - TALITA Man CNP - 11/04/2022 2:42 PM ESTAddended by: SANDI PENA on: 11/04/2022 02:42 PM Modules accepted: Orders [facility] SystemPznnjw40-60-3215 Note* Addendum Note - TALITA Man CNP - 11/04/2022 2:42 PM ESTAddended by: SANDI PENA on: 11/04/2022 02:42 PM Modules accepted: Orders [facility] SystemXydhzo44-39-2917 Note* Addendum Note - TALITA Man CNP - 11/04/2022 2:42 PM ESTAddended by: SANDI PENA on: 11/04/2022 02:42 PM Modules accepted: Orders [facility] SystemZlvxik50-94-1315 Note* Addendum Note - TALITA Man CNP - 11/04/2022 2:42 PM ESTAddended by: SANDI PENA on: 11/04/2022 02:42 PM Modules accepted: Orders [facility] [id number] Miscellaneous Notes* Addendum Note - TALITA Man [...] 11/04/2022 9:06 AM EST [facility] [place] [facility] [place] Myrbetric 25 mg for patient [...] EST Lvm that script was sent into [facility] pharmacy today. Call if he has any [...] Princess. Pt would prefer Rx sent to [facility]. Pharmacy in chart and below. [facility] [place], [place] - [address] [address] [[id number]] Routing to Dr Camarillo and AP[facility] Thank you. documented in this [facility]01-09-2023 Telephone encounter Note* Telephone Encounter - TALITA Man CNP - 11/04/2022 2:41 PM EST Okay increased trospium to 20mg BID but still needs someone to schedule an appointment in 6 weeks to assess medication effectiveness and for PVR check. Thanks [facility]01-09-2023 Telephone encounter Note* Telephone Encounter - Chasidy Keenan RN - 11/04/2022 2:31 PM EST Called and spoke with patient. [facility] states [facility] He wants to know if he can try a stronger dose of trospium instead. Please advise. [facility]01-09-2023 Note* Addendum Note - TALITA Ruiz CNP - 11/04/2022 9:08 AM ESTAddended by: LOREN TREADWELL on: 11/04/2022 09:08 AM Modules accepted: Orders [address]09-2023 Note* Addendum Note - TALITA Ruiz CNP - 11/04/2022 9:08 AM ESTAddended by: LOREN TREADWELL on: 11/04/2022 09:08 AM Modules accepted: Orders [place] [address]-09-2023 Note* Addendum Note - TALITA Ruiz CNP - 11/04/2022 9:08 AM ESTAddended by: LOREN TREADWELL on: 11/04/2022 09:08 AM Modules accepted: Orders [address]09-2023 Note* Addendum Note - TALITA Ruiz CNP - 11/04/2022 9:08 AM ESTAddended by: LOREN TREADWELL on: 11/04/2022 09:08 AM Modules accepted: Orders [facility] [id number] Note* Addendum Note - TALITA Ruiz CNP - 11/04/2022 9:08 AM ESTAddended by: LOREN TREADWELL on: 11/04/2022 09:08 AM Modules accepted: Orders [facility] [id number] Telephone encounter Note* Telephone Encounter - TALITA Ruiz CNP - 11/04/2022 9:06 AM EST [facility] Myrbetric 25 mg for patient to try. Please schedule an appointment in 6 weeks to assess medication effectiveness and for PVR check. Thanks [facility] [id number] Telephone encounter Note* Telephone Encounter - Trice [...] to try somethingelse. Please advise, thank you. [facility] [id number] Telephone encounter Note* Telephone Encounter - Kari Warren LPN - 10/25/2022 12:28 PM EST Lvm that script was sent into [facility] pharmacy today. Call if he has any further questions or concerns. [facility] SystemTdbqfm29-38-3234 Telephone encounter Note* Telephone Encounter - TALITA Man CNP - 10/25/2022 12:21 PM EST Sent. Please let patient know [facility] SystemQbrhxw22-33-6647 Telephone encounter Note* Telephone Encounter - Franky Huang RN - 10/25/2022 12:08 PM EST Pt called in and stated, Dr Camarillo was supposed to [facility] but [facility] anything yet. Someone needs to get their act together! I need this medicine! You need to let me know what's going on! Upon investigation, Trospium appears to have been sent to [facility] in [place]. Pt would prefer Rx sent to [facility]. Pharmacy in chart and below. [facility] - [place], [place] - [address] [[id number]] Routing to Dr Camarillo and APPs to send to [facility]. Thank you. [facility] [id number] NoteI agree with plan of care. He can call us if symptoms persist and we can redo urine testing. Closing encounter.[facility]10-20-2022 Hospital Discharge instructions* Discharge Instructions* [place] [...] Follow any instructions given to you by Dr.Dankoff. Take 16 units of insulin at bedtime [...] your scheduled surgery time. Please bring your [facility] [employer] Surgical folder and medication list with you day of surgery. We encourage you to write down any questions you may have for the surgeon, anesthesiologist, or other members of the surgical team and bring it with you the day of surgery. Please bring photo ID and insurance information. You may use the free service order taker parking at the main entrance on [address] [place] [address], or the free parking in the [facility] parking deck * Attachments The following attachments cannot be sent through Care Everywhere. * Cystoscopy: Post-op (American) [facility] Work Phone: Evaluation noteNo assessment information available [facility] Work Phone: Evaluation note* Diagnosis Pre-op testing- Primary Preoperative examination, unspecified documented in this encounter [facility] Work Phone: Evaluation note* Diagnosis Frequency of urination Urinary frequency documented in this encounter [facility] [employer] note* Diagnosis Frequency of urination Urinary frequency documented in this encounter [facility] [employer] note* Diagnosis Urgency of urination- Primary documented in this encounter [facility] [employer] note* Diagnosis Benign prostatic hyperplasia with urinary retention- Primary Renal cysts, acquired, bilateral Acquired cyst of kidney [facility] Diagnosis Chronic kidney disease, stage 4 (severe) (HCC)- Primary documented in this encounter [facility] note* Diagnosis Onset Date Resolution Status Admit Date Adenocarcinoma of upper lobe of left lung acute August 08 2:21pm [facility] Work Phone: Hospital Discharge instructions Additional Instructions Your prostate [...] catheter again, return to the ER for reevaluation.[facility] Work Phone: Hospital Discharge instructionsAdditional Instructions Your Diego catheter was adjusted and now seems to be draining normally. If you have any issues you can return to the ER or see your urologist.[facility] Work Phone: Hospital Discharge instructionsAdditional Instructions Your Diego catheter was replaced. If you have any issues you can return to the ER or see your urologist.[facility] Work Phone: Hospital Discharge instructionsAdditional Instructions Follow-up with your urologist at the [facility]. Antibiotics as directed. Return with fever, new or worsening symptoms.[facility] Work Phone: Hospital Discharge instructionsAdditional Instructions If you are having any problems with your catheter return [facility] Tonight just seemed to be clogged when the nurse irrigated it seems to be flowing well now. There is no signs of any bleeding.[facility] Work Phone: Hospital Discharge instructionsAdditional Instructions Your Diego catheter was exchanged and I prescribed antibiotics for a UTI. [facility] Work Phone: Progress note Author Adolfo Tubbs [facility] Services Note Date/Time August 08, 2025 3 :12pm [facility] [address] [place], [place] [address] OFFICE VISIT Date of Service: 08/08/25 143 MR#: [id number] Acct: [id number] Name: LORI LYNCH Rep #: [id number] : 1945 From: Adolfo tate DO Age/Sex: 80/M Location: [facility] [place] Status: Signed Intake Vital Signs 06/24/25 10:54 08/08/25 14:42 Height 5 ft 8 in 5 ft 8 in Weight: 217 lb BMI 33.0 BP 134/68 H Blood Pressure Location Rt brachial Position Sitting Respiration 18 Pulse 68 Pulse Source Monitor Temp 99.0 F Temperature Source Temporal Artery Pulse Oximetry (%) 98 Oxygen Delivery Method room air Intake Is patient in pain?: No Allergies bupropion Allergy (Unknown, Verified 08/08/25 14:38) unknown insulin glargine (From Lantus U-100 Insulin) Allergy (Unknown, Verified 08/08/2514:38) unknown amoxicillin (From Augmentin) Allergy (Verified 08/08/25 14:38) Hives clavulanic acid (From Augmentin) Allergy (Verified 08/08/25 14:38) Hives lisinopril Allergy (Verified 08/08/25 14:38) Other silicone Adverse Reaction (Mild, Verified 08/08/25 14:38) PT UNSURE OF REACTION Medications ?Medication ?Instructions ?Recorded ?Confirmed ?Type amlodipine 10 mg tablet 10 mg PO DAILY BP 07/10/24 1 History atorvastatin 40 mg tablet 40 mg PO QHS cholesterol 08/08/25 History glipizide 10 mg tablet 5 mg PO DAILY diabetes 07/1008/08/25 History pregabalin 75 mg capsule (Lyrica) 75 mg PO BID pain 08/08/25 History sitagliptin 25 mg tablet 25 mg PO DAILY diabetes 06/2708/08/25 History finasteride 5 mg tablet 5 mg PO DAILY #30 tabs 07/1308/08/25 Rx ferrous gluconate 324 mg (38 mg 324 mg PO QHS 01/25/25 08/08/25 History iron) tablet insulin glargine 100 unit/mL (3 16 unit subcut QHS margaret betes 07/27/25 08/08/25 History mL) subcutaneous pen tamsulosin 0.4 mg capsule (Flomax) 0.4 mg PO QDAY 11/2008/08/25 History Have you fallen in the past year?: Yes PFSH PFSH Medical History (Updated 08/08/25 @ 15:[address] 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 UTI (urinary tract infection) Leukocytosis Acute kidney injury Acute lactic acidosis Generalized weakness Diabetes High cholesterol HTN (hypertension) Smoker Prostate enlargement Lung cancer Home Medications ?Medication ?Instructions ?Recorded ?Last Taken ?Type amlodipine 10 mg tablet 10 mg PO DAILY BP 07/10/24 0 01/25/25 History atorvastatin 40 mg tablet 40 mg PO QHS cholesterol 01/24/25 History glipizide 10 mg tablet 5 mg PO DAILY diabetes 07/1005/22/25 History pregabalin 75 mg capsule (Lyrica) 75 mg PO BID pain 01/25/25 History sitagliptin 25 mg tablet 25 mg PO DAILY diabetes 06/2701/25/25 History finasteride 5 mg tablet 5 mg PO DAILY #30 tabs 07/1301/25/25 Rx ferrous gluconate 324 mg (38 mg 324 mg PO QHS 01/25/25 01/24/25 History iron) tablet insulin glargine 100 unit/mL (3 16 unit subcut QHS margaret betes 07/27/25 Unknown History mL) subcutaneous pen tamsulosin 0.4 mg capsule (Flomax) 0.4 mg PO QDAY 11/20 Unknown History Allergy/AdvReac Type Severity Reaction Status Date / Time bupropion Allergy Unknown unknown Verified 08/08/25 14:38 insulin glargine (From Allergy Unknown unknown Verified 08/08/25 14:38 Lantus U-100 Insulin) amoxicillin (From Augmentin) Allergy Hives Verified 08/08/25 14:38 clavulanic acid (From Allergy Hives Verified 08/08/25 14:38 Augmentin) lisinopril Allergy Other Verified 08/08/25 14:38 silicone AdvReac Mild PT UNSURE Verified 08/08/25 14:38 OF REACTION Family History (Updated 07/27/25 @ 14:53 by Rebecca Adams) Brother Cancer Other Diabetes Surgical History (Updated 08/08/25 @ 14:41 by Shanna Doherty) H/O shoulder replacement Social History (Updated 07/27/25 @ 14:52 by Rebecca Adams) Smoking Status: Current every day smoker tobacco type: cigarettes Tobacco: How many years used: 60 alcohol intake: never substance use type: does not use Referring Provider: [facility] Diagnosis: Lori Lynch is an 80-year-old male with a history significant for renal cell carcinoma of the right kidney status post microwave ablation (2015) and clinicalstage 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 History of Present Illness: 03/15/2016: Patient was diagnosed with renal cell carcinoma of the right kidney and completed microwave ablation. 03/20/2021: Patient completed low-dose CT scan for lung cancer screening.? This demonstrated 2.7 cm soft tissue nodule in the right upper lobe of the lung. 04/04/2021: Patient pleated PET scan.? This demonstrated a 2.8 cm lesion with SUV up to 6.? There is mild enlarged paratracheal, AP window and subcarinal lymph node with an SUV of 2-2.8.? And a small area of abnormal activity noted in the midportion of the prostate. 05/15/2021: Patient clued a prostate MRI with demonstrating a PI-RADS 2 lesion inthe mid central gland which is stable. 06/04/2021: Patient completed right upper lobe biopsy.? Pathology was consistent with non-small cell lung cancer consistent with squamous cell carcinoma. 07/16/2021: Patient completed SBRT to the right upper lobe lesion.? 5000 cGy in 5fractions 10/24/2021: Patient completed CT chest.? This demonstrated a 2.4 x 0.9 cm right upper lobe lesion which is smaller and multiple other stable subcentimeter nodules. 01/23/2022: CT chest demonstrated increased focal linear density in the right upper lobe and increased associated nodule. 02/06/2022: PET scan was performed.? This demonstrated no FDG avidity in the lesion.? Changes felt to be postradiation. 01/13/2023: CT chest was completed this demonstrated stable postradiation fibrosis. 06/16/2023: CT chest was completed which demonstrated stable postradiation fibrosis. 12/16/2023: CT chest demonstrated progressive increase in the right upper lobe density measuring 4.8 x 1.9 cm. 01/20/2024: PET scan was performed.? This demonstrated FDG avid linear right upper lobe lesion with an SUV of 1.7, FDG avid lesion in the prostate. 08/01/2024: CT chest demonstrated right upper lobe mass measuring 4.6 x 1.4 cm extending to the pleural surface into the level of the second rib with pathologic fracture unable to be excluded.? There is a 5 mm spiculated left upper lobe nodule.? Multiple new spiculated densities in the right upper lobe measuring 3 mm. 08/24/2024: PET scan was performed.? This demonstrated stable right upper lobe lung radiation changes, circumferential right renal lesion which was later determined to be an abscess. 04/05/2025: PET scan was performed.? This demonstrated a new 1.1 cm left upper lobe nodule with an SUV of 3.5. 05/15/2025: Patient completed left upper lobe biopsy and pathology was consistentwith adenocarcinoma. 07/26/2025: Patient completed PET scan.? This demonstrated hypermetabolic left upper lobe nodule consistent with known malignancy without any other evidence ofhypermetabolic focus seen. Radiation Treatment History: 1) 07/16/2021: Patient completed SBRT to the right upper lobe lesion.? 5000 cGy in 5 fractions Interval History: Patient presents for initial consultation. He does report having a significant history of renal cell carcinoma of the right kidney and completed microwave ablation in 2016, this has been controlled since then. He also has a history oflung cancer in the right upper lobe which was treated with SBRT in May 2021 and remains totally controlled. He has had a catheter for the last year, he tried Aquablation but he still has urinary difficulty he exchanges this catheteronce per month with urology at the [facility]. He does smoke 1 pack/day and has done sofor 60 years, he does not use inhalers or oxygen. He does report occasional shortness of breath but this is minimal. He uses a cane for long distances but can walk without it at home. He does have chronic kidney disease and diabetes as well. He denies having bone pain. Energy level remains relatively stable. Weight and appetite are stable. He does complete tasks around his house withoutmuch difficulty and also completes his ADLs without any difficulty, he does helpto care for his . He denies having other problems or concerns at this time. Review of Systems: A 12-point review of systems was completed and was negative except for what is noted in the HPI/Interval History and by the nurse. Physical Exam: Weight: 217 lbs ECO KARNOFSKY SCORE: 60% CONSTITUTIONAL: Well-developed, well-nourished, and in no apparent distress. CARDIAC: Regular rate and rhythm. Normal S1, S2. No murmurs, rubs, or gallops. PULMONARY/CHEST: Lungs are clear to auscultation and percussion bilaterally. No wheezes, rhonchi, or crackles noted. No increased work of breathing. EXTREMITIES: Full range of motion in all four extremities. No evidence of edema. PSYCHIATRIC: Appropriate mood and affect for the clinical situation. 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 Plan: Patient presents for initial consultation. He does have a limited performance status and significant comorbidities. I had a detailed discussion with the patient regard the diagnosis of early-stage non-small cell lung cancer.? He doeshave a significant history for renal cell carcinoma of the right kidney status post microwave ablation in 2015 as well as stage IA3 squamous cell carcinoma of the right upper lobe status post SBRT in June 2021.? Scans have demonstrated stability of this lesion without any evidence of recurrence, does have fibrosis from treatment.? He is now diagnosed with a left upper lobe adenocarcinoma status post PET scan in March and again in June demonstratingleft upper lobe nodule and no other evidence of disease.? Tumor now measures about 2 cm.? We discussed treatment options including surgery and definitive radiation with SBRT.? He was treated with SBRT in 2020 to the right upper lobe, received 5000 cGy in 5 fractions at the [facility].? We have the outside treatment plan and appears very feasible to now safely treat the left upper lobe malignancy with SBRT. I discussed the logistics of stereotactic radiation therapy for NSCLC including CT simulation was stereotactic body frame immobilization and 4D CT scan, treatment planning, followed by likely 5 fractions of radiation therapy.? All risks, benefits, and alternatives were discussed and all questions and concerns were addressed.? I discussed the potential short-term and late radiation toxicities associated with lung SBRT which would include but are not limited to fatigue, worsening dyspnea or oxygen dependence, cough/pneumonitis, chest wall pain or fracture, esophagitis or esophageal stricture, spinal cord myelopathy, or airway necrosis.? We reviewed the relative likelihood of these toxicities given the location and size of the tumor and also reviewed potential management strategies for these toxicities.? We also reviewed the somewhat increased risk due to this being the second course of SBRT.? I discussed that I believe the high rates of disease control very much outweigh the low risks of severe toxicities and that I would recommend treatment.? Following our discussion the patient desired to proceed with lung SBRT, we will have him return in the near future for CT simulation and he was instructed to call with any further questions or concerns in the interim. Thank you for allowing me to participate in the management and care of your patient. If I may answer any questions in the interim, please do not hesitate tocontact me at any time. Adolfo Tubbs DO, MS [employer], Department of Radiation Oncology [facility] Coding Level of Care Code Off vis,new,level 5 Diagnoses Adenocarcinoma of upper lobe of left lung C34.12 08/08/25 1524 <Electronically signed by Adolfo Tubbs DO> Date _ Adolfo Tubbs Tamra Signature: Date (if applicable) CC: [facility] Work Phone: Reason for referral (narrative)No reason for referral information availableWSumma Health Work Phone: Chief Complaint and Reason for [...] Diego problem May 26, 2025 6:21 pm Chief Complaint Admit Date CATH LEAKING March 02, 2025 9:44am LUNG CANCER April 05, 2025 7:42 am gu c/o April 29, 2025 1:02p m gu May 08, 2025 7:09 am UPPER EXTREMITY May 09, 2025 7:43 pm LEFT LUNG NODULE May 23, 2025 8:42 am Diego problem May 26, 2025 6:21 pm DIEGO NOT DRAINING June 23, 2025 9: 51pm Chief Complaint Admit Date CATH LEAKING March 02, 2025 9:44am LUNG CANCER April 05, 2025 7:42 am gu c/o April 29, 2025 1:02p m gu May 08, 2025 7:09 am UPPER EXTREMITY May 09, 2025 7:43 pm LEFT LUNG NODULE May 23, 2025 8:42 am Diego problem May 26, 2025 6:21 pm DIEGO NOT DRAINING June 23, 2025 9: 51pm CATH June 24, 2025 10 :54am Chief Complaint Admit Date gu c/o April 29, 2025 1:02p m gu May 08, 2025 7:09 am UPPER EXTREMITY May 09, 2025 7:43 pm LEFT LUNG NODULE May 23, 2025 8:42 am Diego problem May 26, 2025 6:21 pm DIEGO NOT DRAINING June 23, 2025 9: 51pm CATH June 24, 2025 10 :54am LUNG July 26, 2025 10:01am Amb Documentation July 27, 2025 2: 44pm LUNG CA - August 08, 2025 2 :21pm . August 16, 2025 1 0:39am Reason for Visit Admit Date Adenocarcinoma of upper lobe of left valentino g August 08, 2025 2:21pm Advance Directives No Advanced Directives Records Found Advance Directive Response Recorded Date/ Time Living Will No March 14, 2022 1 2:35pm Power of Excavation Laborer No March 14, 2022 12:35pm Advance Directive Response Recorded Date/ Time Living Will No March 14, 2022 1 1:35am Power of Excavation Laborer No March 14, 2022 11:35am Latest Code Status on File Code Status Date Activated Date Inactivated Comments Full Code 08/23/2022 5:17 PM 08/25/2022 3:35 PM Advance Directive Response Recorded Date/ Time Living Will Yes November 13 11:14pm Do you have a Healthcare Power of Excavation Laborer? Yes November 13, 2024 11:14pm Name of Medical Power of Excavation Laborer - LARA November 13, 2024 11:14pm Living Will No January 14, 2025 12:37pm Do you have a Healthcare Power of Excavation Laborer? No January 14, 2025 12:37pm Advance Directive Response Recorded Date/ Time Living Will No January 25, 2025 11:28am Do you have a Healthcare Power of Excavation Laborer? No January 25, 2025 11:28am Living Will Yes November 13 11:14pm Do you have a Healthcare Power of Excavation Laborer? Yes November 13, 2024 11:14pm Name of Medical Power of Excavation Laborer - LARA November 13, 2024 11:14pm Living Will No January 14, 2025 12:37pm Do you have a Healthcare Power of Excavation Laborer? No January 14, 2025 12:37pm Advance Directive Response Recorded Date/ Time Living Will No January 25, 2025 11:28am Do you have a Healthcare Power of Excavation Laborer? No January 25, 2025 11:28am Living Will Yes November 13 11:14pm Do you have a Healthcare Power of Excavation Laborer? Yes November 13, 2024 11:14pm Name of Medical Power of Excavation Laborer - LARA November 13, 2024 11:14pm Living Will No January 14, 2025 12:37pm Do you have a Healthcare Power of Excavation Laborer? No January 14, 2025 12:37pm Do you have a Healthcare Power of Excavation Laborer? Yes March 02, 2025 11:09am Name of Medical Power of Excavation Laborer March 02, 2025 11:09am Advance Directive Response Recorded Date/ Time Living Will No January 25, 2025 11:28am Do you have a Healthcare Power of Excavation Laborer? No January 25, 2025 11:28am Living Will No January 14, 2025 12:37pm Do you have a Healthcare Power of Excavation Laborer? No January 14, 2025 12:37pm Do you have a Healthcare Power of Excavation Laborer? Yes March 02, 2025 11:09am Name of Medical Power of Excavation Laborer March 02, 2025 11:09am Advance Directive Response Recorded Date/ Time Living Will No January 25, 2025 11:28am Do you have a Healthcare Power of Excavation Laborer? No January 25, 2025 11:28am Living Will No January 14, 2025 12:37pm Do you have a Healthcare Power of Excavation Laborer? No January 14, 2025 12:37pm Do you have a Healthcare Power of Excavation Laborer? Yes March 02, 2025 11:09am Name of Medical Power of Excavation Laborer March 02, 2025 11:09am Do you have a Healthcare Power of Excavation Laborer? Yes April 29, 2025 1:08pm Advance Directive Response Recorded Date/ Time Living Will No January 25, 2025 11:28am Do you have a Healthcare Power of Excavation Laborer? No January 25, 2025 11:28am Do you have a Healthcare Power of Excavation Laborer? No May 08, 2025 7:54am Living Will No January 14, 2025 12:37pm Do you have a Healthcare Power of Excavation Laborer? No January 14, 2025 12:37pm Do you have a Healthcare Power of Excavation Laborer? Yes March 02, 2025 11:09am Name of Medical Power of Excavation Laborer March 02, 2025 11:09am Do you have a Healthcare Power of Excavation Laborer? Yes April 29, 2025 1:08pm Advance Directive Response Recorded Date/ Time Do you have a Healthcare Power of Excavation Laborer? No May 08, 2025 7:54am Do you have a Healthcare Power of Excavation Laborer? No May 26, 2025 6:45pm Do you have a Healthcare Power of Excavation Laborer? Yes March 02, 2025 11:09am Name of Medical Power of Excavation Laborer March 02, 2025 11:09am Do you have a Healthcare Power of Excavation Laborer? Yes April 29, 2025 1:08pm Advance Directive Response Recorded Date/ Time Do you have a Healthcare Power of Excavation Laborer? No May 08, 2025 7:54am Do you have a Healthcare Power of Excavation Laborer? No May 26, 2025 6:45pm Do you have a Healthcare Power of Excavation Laborer? Yes March 02, 2025 11:09am Name of Medical Power of Excavation Laborer March 02, 2025 11:09am Do you have a Healthcare Power of Excavation Laborer? Yes April 29, 2025 1:08pm Do you have a Healthcare Power of Excavation Laborer? No June 23, 2025 10:20pm Advance Directive Response Recorded Date/ Time Do you have a Healthcare Power of Excavation Laborer? No May 08, 2025 7:54am Do you have a Healthcare Power of Excavation Laborer? No May 26, 2025 6:45pm Do you have a Healthcare Power of Excavation Laborer? Yes March 02, 2025 11:09am Name of Medical Power of Excavation Laborer March 02, 2025 11:09am Do you have a Healthcare Power of Excavation Laborer? Yes April 29, 2025 1:08pm Do you have a Healthcare Power of Excavation Laborer? No June 23, 2025 10:20pm Do you have a Healthcare Power of Excavation Laborer? No June 24, 2025 11:19am Advance Directive Response Recorded Date/ Time Do you have a Healthcare Power of Excavation Laborer? No May 08, 2025 7:54am Do you have a Healthcare Power of Excavation Laborer? No May 26, 2025 6:45pm Do you have a Healthcare Power of Excavation Laborer? Yes April 29, 2025 1:08pm Do you have a Healthcare Power of Excavation Laborer? No June 23, 2025 10:20pm Do you have a Healthcare Power of Excavation Laborer? No June 24, 2025 11:19am Summary Purpose Family History No Family History Records Found Relationship Condition Age at Onset Recorded Date/T saniya Not Specified Diabetes mellitus Unknown Relationship Condition Age at Onset Recorded Date/T saniya Not Specified Diabetes mellitus Unknown brother Malignant neoplasm Unknown Additional Source Comments Goals (unrecognized section [...] Care Teams (unrecognized sec tion and content) Bus Matron Relationship Specialty Start Date End Date Yolis Musa PA-C [address] [place] [address] PCP - General Gastroenterology 05/30/22 Team Status: [...] PORTILLO Attending Provider, Referring Provider Ac tive Bus Matron Relationship Specialty Start Date End Date Yolis Musa PCP - General 05/30/22 Sintia Burger, [address] [place] [address] Surgeon Urology 08/25/22 Franc Zambrano MD [address] [place] [address] Surgeon Urology 08/25/22 Heri Camarillo MD [address] [place] [address] Surgeon Urology 09/16/22 Bus Matron Relationship Specialty Start Date End Date Yolis Musa PCP - General 05/30/22 Sintia Burger DO [address] [place] [address] Surgeon Urology 08/25/22 Franc Zambrano MD [address] [place] [address] Surgeon Urology 08/25/22 Heri Camarillo MD [address] [place] [address] Surgeon Urology 09/16/22 Bus Matron Relationship Specialty Start Date End Date Yolis Musa PCP - General 05/30/22 Sintia Burger DO [address] [place], [place] [id number] Surgeon Urology 08/25/22 Franc Zambrano MD [address] [place] [address] Surgeon Urology 08/25/22 Heri Camarillo MD [address] [place] [address] Surgeon Urology 09/16/22 Team Status: Active Member Role Status Dates [facility] Primary Care Provider Active Team Status: Inactive Member Role Status Dates [facility] Primary Care Provider Active Start: November 13, 2024 End: November 13, 2024 Dr. Rowdy Shearer DO Attending Provider Active Start: November 13, 2024 End: November 13, 2024 Dr. Rowdy Shearer DO Emergency Provider Active Start: November 13, 2024 End: November 13, 2024 Team Status: Inactive Member Role Status Dates [facility] Primary Care Provider Active Start: January 14, 2025 End: January 14, 2025 Dr. Greg Ruiz MD Emergency Provider Active Start: January 14, 2025 End: January 14, 2025 Team Status: Inactive Member Role Status Dates [facility] Primary Care Provider Active Start: January 14, 2025 End: January 14, 2025 Dr. Greg Ruiz MD Attending Provider Active Start: January 14, 2025 End: January 14, 2025 Dr. Greg Ruiz MD Emergency Provider Active Start: January 14, 2025 End: January 14, 2025 Team Status: Inactive Member Role Status Dates [facility] Primary Care Provider Active Start: January 21, 2025 End: January 21, 2025January MASON VALDES Attending Provider Active St art: January 21, 2025 End: January 21, 2025January MASON VALDES Referring Provider Active St art: January 21, 2025 End: January 21, 2025 Team Status: Active Member Role Status Dates [facility] Primary Care Provider Active Start: January 25, 2025 Dr. Greg Ruiz MD Emergency Provider Active Start: January 25, 2025 Team Status: Inactive Member Role Status Dates [facility] Primary Care Provider Active Start: January 25, 2025 End: January 25, 2025 Dr. Greg Ruiz MD Emergency Provider Active Start: January 25, 2025 End: January 25, 2025 Team Status: Inactive Member Role Status Dates [facility] Primary Care Provider Active Start: January 25, 2025 End: January 25, 2025 Dr. Greg Ruiz MD Attending Provider Active Start: January 25, 2025 End: January 25, 2025 Dr. Greg Ruiz MD Emergency Provider Active Start: January 25, 2025 End: January 25, 2025 Team Status: Inactive Member Role Status Dates [facility] Primary Care Provider Active Start: March 02, 2025 End: March 02, 2025 Dr. Clayton Croft DO Emergency Provider Active Start: March 02, 2025 End: March 02, 2025 Team Status: Inactive Member Role Status Dates [facility] Primary Care Provider Active Start: March 02, 2025 End: March 02, 2025 Dr. Clayton Croft DO Attending Provider Active Start: March 02, 2025 End: March 02, 2025 Dr. Clayton Croft DO Emergency Provider Active Start: March 02, 2025 End: March 02, 2025 Team Status: Inactive Member Role Status Dates [facility] Primary Care Provider Active Start: March 24, 2025 End: March 24, 2025 Chikis Hernandez NP-C Attending Provider Active Star t: March 24, 2025 End: March 24, 2025 Chikis Hernandez SENIOR MILITARY ANALYST-C Referring Provider Active Star t: March 24, 2025 End: March 24, 2025 Team Status: Inactive Member Role Status Dates [facility] Primary Care Provider Active Start: March 29, 2025 End: March 29, 2025 IRMA GOMES Attending Provider Active Sta rt: March 29, 2025 End: March 29, 2025 IRMA GOMES Referring Provider Active Sta rt: March 29, 2025 End: March 29, 2025 Team Status: Inactive Member Role Status Dates [facility] Primary Care Provider Active Start: April 05, 2025 End: April 05, 2025 IRMA GOMES Attending Provider Active Sta rt: April 05, 2025 End: April 05, 2025 IRMA GOEMS Referring Provider Active Sta rt: April 05, 2025 End: April 05, 2025 Team Status: Active Member Role Status Dates [facility] Primary Care Provider Active Start: March 29, 2025 IRMA GOMES Attending Provider Active Sta rt: March 29, 2025 IRMA GOMES Referring Provider Active Sta rt: March 29, 2025 Bus Matron Relationship Specialty Start Date End Date [facility] [address] [address] PCP - General 02/10/25 [place] [address] [place] [address] Referring Urology 07/30/23 Team Status: Active Member Role/Relationship Status Dates [facility] Primary Care Provider Active Team Status: Inactive Member Role/Relationship Status Dates [facility] Primary Care Provider Active Start: January 14, 2025 End: January 14, 2025 Dr. Greg Ruiz MD Attending Provider Active Start: January 14, 2025 End: January 14, 2025 Dr. Greg Ruiz MD Emergency Provider Active Start: January 14, 2025 End: January 14, 2025 Team Status: Inactive Member Role/Relationship Status Dates [facility] Primary Care Provider Active Start: January 21, 2025 End: January 21, 2025January KEISHA SENIOR MILITARY ANALYST-C Attending Provider Active St art: January 21, 2025 End: January 21, 2025January KEISHA SENIOR MILITARY ANALYST-C Referring Provider Active St art: January 21, 2025 End: January 21, 2025 Team Status: Inactive Member Role/Relationship Status Dates [facility] Primary Care Provider Active Start: January 25, 2025 End: January 25, 2025 Dr. Greg Ruiz MD Attending Provider Active Start: January 25, 2025 End: January 25, 2025 Dr. Greg Ruiz MD Emergency Provider Active Start: January 25, 2025 End: January 25, 2025 Team Status: Inactive Member Role/Relationship Status Dates [facility] Primary Care Provider Active Start: March 02, 2025 End: March 02, 2025 Dr. Clayton Croft DO Attending Provider Active Start: March 02, 2025 End: March 02, 2025 Dr. Clayton Croft DO Emergency Provider Active Start: March 02, 2025 End: March 02, 2025 Team Status: Inactive Member Role/Relationship Status Dates [facility] Primary Care Provider Active Start: March 24, 2025 End: March 24, 2025 Chikis Hernandez SENIOR MILITARY ANALYST-C Attending Provider Active Star t: March 24, 2025 End: March 24, 2025 Chikis Hernandez SENIOR MILITARY ANALYST-C Referring Provider Active Star t: March 24, 2025 End: March 24, 2025 Team Status: Inactive Member Role/Relationship Status Dates [facility] Primary Care Provider Active Start: April 05, 2025 End: April 05, 2025 IRMA GOMES Attending Provider Active Sta rt: April 05, 2025 End: April 05, 2025 IRMA GOMES Referring Provider Active Sta rt: April 05, 2025 End: April 05, 2025 Team Status: Inactive Member Role/Relationship Status Dates [facility] Primary Care Provider Active Start: April 29, 2025 End: April 29, 2025 Dr. William Seals DO Emergency Provider Active Start: April 29, 2025 End: April 29, 2025 Team Status: Inactive Member Role/Relationship Status Dates [facility] Primary Care Provider Active Start: April 29, 2025 End: April 29, 2025 Dr. William Seals DO Attending Provider Active Start: April 29, 2025 End: April 29, 2025 Dr. William Seals DO Emergency Provider Active Start: April 29, 2025 End: April 29, 2025 Team Status: Inactive Member Role/Relationship Status Dates [facility] Primary Care Provider Active Start: May 08, 2025 End: May 08, 2025 Dr. William Seals DO Emergency Provider Active Start: May 08, 2025 End: May 08, 2025 Team Status: Inactive Member Role/Relationship Status Dates [facility] Primary Care Provider Active Start: May 09, 2025 End: May 09, 2025 Ed Physician Provider Emergency Provider Active Start: May 09, 2025 End: May 09, 2025 Team Status: Inactive Member Role/Relationship Status Dates [facility] Primary Care Provider Active Start: March 02, 2025 End: March 02, 2025 Dr. Clayton Croft DO Attending Provider Active Start: March 02, 2025 End: March 02, 2025 Dr. Clayton Croft , Emergency Provider Active Start: March 02, 2025 End: March 02, 2025 Team Status: Inactive Member Role/Relationship Status Dates [facility] Primary Care Provider Active Start: March 24, 2025 End: March 24, 2025 Chikis Hernandez SENIOR MILITARY ANALYST-C Attending Provider Active Star t: March 24, 2025 End: March 24, 2025 Chikis Hernandez SENIOR MILITARY ANALYST-C Referring Provider Active Star t: March 24, 2025 End: March 24, 2025 Team Status: Inactive Member Role/Relationship Status Dates [facility] Primary Care Provider Active Start: April 05, 2025 End: April 05, 2025 IRMA GOMES Attending Provider Active Sta rt: April 05, 2025 End: April 05, 2025 IRMA GOMES Referring Provider Active Sta rt: April 05, 2025 End: April 05, 2025 Team Status: Inactive Member Role/Relationship Status Dates [facility] Primary Care Provider Active Start: April 29, 2025 End: April 29, 2025 Dr. William Seals DO Attending Provider Active Start: April 29, 2025 End: April 29, 2025 Dr. William Seals , Emergency Provider Active Start: April 29, 2025 End: April 29, 2025 Team Status: Inactive Member Role/Relationship Status Dates [facility] Primary Care Provider Active Start: May 08, 2025 End: May 08, 2025 Dr. William Seals DO Attending Provider Active Start: May 08, 2025 End: May 08, 2025 Dr. William Seals , Emergency Provider Active Start: May 08, 2025 End: May 08, 2025 Team Status: Inactive Member Role/Relationship Status Dates [facility] Primary Care Provider Active Start: May 09, 2025 End: May 09, 2025 Ed Physician Provider Attending Provider Active Start: May 09, 2025 End: May 09, 2025 Ed Physician Provider Emergency Provider Active Start: May 09, 2025 End: May 09, 2025 Team Status: Active Member Role/Relationship Status Dates [facility] Primary Care Provider Active Start: May 23, 2025 IRMA GOMES Attending Provider Active Sta rt: May 23, 2025 IRMA GOMES Referring Provider Active Sta rt: May 23, 2025 Team Status: Inactive Member Role/Relationship Status Dates [facility] Primary Care Provider Active Start: May 26, 2025 End: May 26, 2025 Oscar [place] MD Emergency Provider Active Star t: May 26, 2025 End: May 26, 2025 Team Status: Inactive Member Role/Relationship Status Dates [facility] Primary Care Provider Active Start: May 23, 2025 End: May 23, 2025 IRMA GOMES Attending Provider Active Sta rt: May 23, 2025 End: May 23, 2025 IRMA GOMES Referring Provider Active Sta rt: May 23, 2025 End: May 23, 2025 Team Status: Inactive Member Role/Relationship Status Dates [facility] Primary Care Provider Active Start: May 26, 2025 End: May 26, 2025 Oscar [place] MD Attending Provider Active Star t: May 26, 2025 End: May 26, 2025 Oscar [place] MD Emergency Provider Active Star t: May 26, 2025 End: May 26, 2025 Team Status: Inactive Member Role/Relationship Status Dates [facility] Primary Care Provider Active Start: June 23, 2025 End: June 23, 2025 Dr. Jacky Norman MD Emergency Provider Active S tart: June 23, 2025 End: June 23, 2025 Team Status: Inactive Member Role/Relationship Status Dates [facility] Primary Care Provider Active Start: June 24, 2025 End: June 24, 2025 Dr. William Seals DO Emergency Provider Active Start: June 24, 2025 End: June 24, 2025 Team Status: Active Member Role/Relationship Status Dates [facility] Primary care physician Active Team Status: Inactive Member Role/Relationship Status Dates [facility] Primary care physician Active Start : April 29, 2025 End: April 29, 2025 Dr. William Seals DO Attending physician Active Start: April 29, 2025 End: April 29, 2025 Dr. William Seals DO Emergency Department Physician Active Start: April 29, 2025 End: April 29, 2025 Team Status: Inactive Member Role/Relationship Status Dates [facility] Primary care physician Active Start : May 08, 2025 End: May 08, 2025 Dr. William Seals DO Attending physician Active Start: May 08, 2025 End: May 08, 2025 Dr. William Seals DO Emergency Department Physician Active Start: May 08, 2025 End: May 08, 2025 Team Status: Inactive Member Role/Relationship Status Dates [facility] Primary care physician Active Start : May 09, 2025 End: May 09, 2025 Ed Physician Provider Attending physician Active Start: May 09, 2025 End: May 09, 2025 Ed Physician Provider Emergency Department Physician A ctive Start: May 09, 2025 End: May 09, 2025 Team Status: Inactive Member Role/Relationship Status Dates [facility] Primary care physician Active Start : May 23, 2025 End: May 23, 2025 IRMA GOMES Attending physician Active St art: May 23, 2025 End: May 23, 2025 IRMA GOMES Referring Provider Active Sta rt: May 23, 2025 End: May 23, 2025 Team Status: Inactive Member Role/Relationship Status Dates [facility] Primary care physician Active Start : May 26, 2025 End: May 26, 2025 Oscar [place] MD Attending physician Active Sta rt: May 26, 2025 End: May 26, 2025 Oscar Valencia MD Emergency Department Physician Activ e Start: May 26, 2025 End: May 26, 2025 Team Status: Inactive Member Role/Relationship Status Dates [facility] Primary care physician Active Start : June 23, 2025 End: June 23, 2025 Dr. Jacky Norman MD Attending physician Active Start: June 23, 2025 End: June 23, 2025 Dr. Jacky Norman MD Emergency Department Physician Ac tive Start: June 23, 2025 End: June 23, 2025 Team Status: Inactive Member Role/Relationship Status Dates [facility] Primary care physician Active Start : June 24, 2025 End: June 24, 2025 Dr. William Seals DO Attending physician Active Start: June 24, 2025 End: June 24, 2025 Dr. William Seals DO Emergency Department Physician Active Start: June 24, 2025 End: June 24, 2025 Team Status: Inactive Member Role/Relationship Status Dates [facility] Primary care physician Active Start : July 26, 2025 End: July 26, 2025 DILCIA GOMES Attending physician Active St art: July 26, 2025 End: July 26, 2025 DILCIA GOMES Referring Provider Active Sta rt: July 26, 2025 End: July 26, 2025 Team Status: Active Member Role/Relationship Status Dates [facility] Primary care physician Active Start : July 27, 2025 Rebecca Adams Attending physician Active Start: July 27, 2025 Team Status: Inactive Member Role/Relationship Status Dates [facility] Primary care physician Active Start : August 08, 2025 End: August 08, 2025 Dr. Adolfo Tubbs DO Attending physician Active Start: August 08, 2025 End: August 08, 2025 LUCY HIGHTOWER Referring Provider Active Start: August 08, 2025 End: August 08, 2025 Team Status: Active Member Role/Relationship Status Dates [facility] Primary care physician Active Start : August 16, 2025 Dr. Adolfo Tubbs DO Attending physician Active Start: August 16, 2025 Dr. Adolfo Tubbs DO Referring Provider Active Start: August 16, 2025 Team Status: Active Member Role/Relationship Status Dates [facility] Primary care physician Active Start : August 16, 2025 Dr. Adolfo Tubbs DO Attending physician Active Start: August 16, 2025 (unrecognized sect ion and content) No Status Records FoundNo Status Records FoundNo Status Records FoundNo Status Records Found INFORMATION SOURCE (unrecogn ized section and content) DATE CREATED AUTHOR 08/24/2022 [facility] [employer] DATE CREATED AUTHOR AUTHOR'S ORGANIZ ATION 12/06/2022 [facility] DATE CREATED AUTHOR AUTHOR'S ORGANIZ ATION 04/23/2025 [facility] DATE CREATED AUTHOR AUTHOR'S ORGANIZ ATION 08/31/2025 [facility] Reason for Visit (unrecogniz ed section and content) Reason Onset Date Comments Medication Question 10/25/2022 Reason Onset Date Comments Gas 11/07/2022 Pt stating that he has been having gas pain with flatulence. He has tried beano, gas x and nothing has worked. He wants to know if something can be called into [facility] on [address] ph [phone]. Please call to let him know something not too expensive, by the way, will be called in for him or discuss further. 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/would like SPT place in lieu of chronic diego/ref by [facility] (Estela [phone] ext [phone] Procedures OFFICE/OUTPATIENT NEW MODERATE MDM 45 MINUTES OFFICE/OUTPATIENT ESTABLISHED MOD MDM 30 MIN [facility], [facility] Alec Tinajero MD [address] [place] [address] Phone: tel: fax: Referral ID Status Reason Start Date Expiration Date V isits Requested Visits Authorized [id number] Authorized 02/07/2025 08/06/2025 99 99 Source Comments (unrecognize d section and content) In the event this informatio n is protected by the Federal Confidentiality of Alcohol and Drug Abuse Patient Records regulations: The Federal rules restrict any use of the information to criminally investigate or prosecute any alcohol or drug abuse patient.[facility] FOR RECORDS PERTAINING TO PATIENTS WHO [...] BE BASED ON THE PRIMARY CLINICAL RECORDS. [employer] provides no warranty or guarantee of the accuracy or completeness of information in this document.
== END | disposition home or self-care (01) ==
DX: N13.30 Unspecified hydronephrosis (principal)
CPT/HCPCS: 78708; A9562; J1938